=== PATIENT | female | born 1990 | race African-American/Black ===

== ENCOUNTER 2024-11-22 15:57 | Emergency (ER) | payer SELFPAY ==
--- NOTE | ~2024-11-22 | XR_ITS ---
EXAMINATION: XR chest 2V Exam Date/Time: 11/22/2024 16:55 DIE MACHINE OPERATOR HISTORY: CP X 3 DAYS Comparison: None. RESULT: Lines, tubes, and devices: None. Lungs and pleura: Clear. Cardiomediastinal silhouette: Stable. Other: No acute osseous or upper abdominal finding. Chronic appearing right clavicular midshaft frac ture, with mild displacement and angulation. IMPRESSION: No acute cardiopulmonary process. Right clavicular midshaft fracture, likely chronic/subacute in the absence of acute pain/tenderness o r acute trauma, healed or partially healed in mild deformity. Reviewed, dictated and finalized at location K. MACHINE OPERATOR IMPRESSION: No acute cardiopulmonary process. Right clavicular midshaft fracture, likely chronic/subacute in the absence of a cute pain/tenderness or acute trauma, healed or partially healed in mild deform ity.
--- NOTE | 2024-11-22 15:58 | ECG_ITS ---
Test Date: 2024-11-22 16:10:36 Measurements Intervals [place] Rate: 101 P: 54 DE: 172 QRS: -4 QRSD: 89 T: 34 QT: 365 QTc: 473 Interpretive Statements SINUS TACHYCARDIA MODERATE VOLTAGE CRITERIA FOR LVH, CONSIDER NORMAL VARIANT [MEETS CRITERIA IN ONE OF: R(aVL), S(V1), R(V5), R(V5/V6)+S(V1)] ABNORMAL ECG Electronically Signed On 11-23-2024 17:04:20 WELDER REPAIR by Bennie Keith M.D.
[2024-11-22] MEDS: ASPIRIN 81 MG CHEWABLE TABLET 243 MG PO (16:12)
[2024-11-22 16:14] VITALS: BP 173/119; PULSE 105; RESP 16; TEMP 36.6; O2SAT 100
--- NOTE | 2024-11-22 16:17 | ED.CHESTPAIN ---
HPI - Chest Pain General Chief Complaint: Chest Pain <Donna Bautista PA-C - Last Filed: 11/26/24 18:24> Stated Complaint: CP/ SOB <Donna Bautista PA-C - Last Filed: 11/26/24 18:24> Time Seen by Provider: 11/22/24 16:17 <Donna Bautista PA-C - Last Filed: 11/26/24 18:24> Focused HPI: This is a 34 year old female that presents to the ER for chest pain. Reports it feels like pressure. Ongoing intermittently the last couple of days. Worsening today which prompted her to be seen. GENERAL: Well-appearing, well-nourished, and in no acute distress. HEAD: Normocephalic, atraumatic. CHEST: Clear to auscultation. ?No respiratory distress. HEART: Regular rate and rhythm.? NEURO: ?Alert and oriented x3. Patient screened in triage and initial orders placed.? ?Additional care and disposition to be based upon?diagnostic testing and treatment. <Donna Bautista PA-C - Last Filed: 11/26/24 18:24> History of Present Illness HPI narrative: Patient 34-year-old female who presents emergency department with chest pressure. 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 and decided to come over to the emergency department for evaluation patient does report that she had some dysrhythmias in the past due to hypokalemia and reports that she had a elevated troponin but did not get a cardiac catheterization she did have a stress test previously and has seen Cardiology <Rich Armando MD - Last Filed: 11/23/24 00:22> Related Data Allergies/Adverse Reactions: Allergies Allergy/AdvReac Type Severity Reaction Status Date / Time prochlorperazine (From Allergy Intermediate Anaphylaxis Verified 11/22/24 16:06 Compazine) <Donna Bautista PA-C - Last Filed: 11/26/24 18:24> Review of Systems Review of Systems: A 10 system review of systems was completed on the patient and is negative except for what is stated in the HPI. Nursing and ancillary documentation was reviewed. <Rich Armando MD - Last Filed: 11/23/24 00:22> PMFSH Past Medical History Medical History: Medical History (Updated 11/26/24 @ 18:24 by Donna Bautista PA-C) History of hypertension <Donna Bautista PA-C - Last Filed: 11/26/24 18:24> Social History Social History: Social History (Updated 11/26/24 @ 18:24 by Donna Bautista PA-C) Substance use: never <Donna Bautista PA-C - Last Filed: 11/26/24 18:24> Exam Narrative: GENERAL: Well-appearing, well-nourished, and in no acute distress. HEAD: Normocephalic, atraumatic. EYES: PERRLA and EOMI. ENT: Nares clear, no rhinorrhea or epistaxis. Mucous membranes moist. NECK: Supple. CHEST: Clear to auscultation. No respiratory distress. HEART: Regular rate and rhythm. No murmur heard. Normal peripheral pulses. ABDOMEN: Soft, nontender, nondistended, normal active bowel sounds. EXTREMITIES: Normal range of motion. No edema. SKIN: Warm, dry, no rash. NEURO: No focal deficits. Alert and oriented x3. PSYCH: Normal mood and affect. <Rich Armando MD - Last Filed: 11/23/24 00:22> Course Vital Signs Vital signs: Vital Signs Temperature 97.8 F 11/22/24 16:14 Pulse Rate 105 H 11/22/24 16:14 Respiratory Rate 16 11/22/24 16:14 Blood Pressure 173/119 H 11/22/24 16:14 Pulse Oximetry 100 11/22/24 16:14 Temperature 98.8 F 11/23/24 00:00 Pulse Rate 83 11/23/24 00:51 Respiratory Rate 19 11/23/24 00:51 Blood Pressure 129/78 11/23/24 00:51 Pulse Oximetry 99 11/23/24 00:51 Oxygen Delivery Room Air 11/23/24 00:18 <Donna Bautista PA-C - Last Filed: 11/26/24 18:24> Vital Signs Temperature 97.8 F 11/22/24 16:14 Pulse Rate 105 H 11/22/24 16:14 Respiratory Rate 16 11/22/24 16:14 Blood Pressure 173/119 H 11/22/24 16:14 Pulse Oximetry 100 11/22/24 16:14 Temperature 98.8 F 11/23/24 00:00 Pulse Rate 83 11/23/24 00:51 Respiratory Rate 19 11/23/24 00:51 Blood Pressure 129/78 11/23/24 00:51 Pulse Oximetry 99 11/23/24 00:51 Oxygen Delivery Room Air 11/23/24 00:18 <Rich Armando MD - Last Filed: 11/23/24 00:22> MDM - Chest Pain MDM Narrative Medical decision making narrative: Differential diagnosis includes ACS, electrolyte abnormality, dysrhythmia, noncardiac chest pain, musculoskeletal pain EKG showed sinus rhythm without evidence of ST elevation or ST depression Laboratory studies showed normal CBC CMP showed a potassium of 3.5 lipase was normal troponin was negative at 0 hour a 3 hour Chest x-ray shows no acute process the patient does have an old clavicle fracture <Rich Armando MD - Last Filed: 11/23/24 00:22> Lab Data Result diagrams: 11/22/24 16:12 11/22/24 16:12 <Donna Bautista PA-C - Last Filed: 11/26/24 18:24> Labs: Lab Results 11/22/24 11/22/24 Range/Units 16:12 22:00 WBC 10.1 H (4.5-10.0) K/mm3 RBC 4.33 (4.2-5.4) M/mm3 Hgb 13.4 (12.0-15.0) g/dL Hct 40.8 (37.0-47.0) % MCV 94.2 (80-100) fl MCH 30.9 (26-34) pg MCHC 32.8 (32-36) g/dl RDW 12.2 (11.5-14.5) % Plt Count 342 (150-375) k/mm3 MPV 9.3 (7.4-10.4) fl Immature Gran % (Auto) 0.3 (0-0.5) % Neut % (Auto) 58.8 (45.5-73.1) % Lymph % (Auto) 31.4 (18.3-44.2) % [place] % (Auto) 6.1 (2.6-8.5) % Eos % (Auto) 3.1 (0-4.4) % Baso % (Auto) 0.3 (0.2-1.2) % Lymph # (Auto) 3.18 (0.9-3.2) K/mm3 [place] # (Auto) 0.6 (0.1-0.6) K/mm3 Eos # (Auto) 0.3 (0-0.3) K/mm3 Baso # (Auto) 0.0 (0.0-0.1) K/mm3 Abs Immat Gran (auto) 0.03 (0.00-0.031) K/mm3 Absolute Neuts (auto) 6.0 (1.3-6.7) K/mm3 Absolute Nucleated RBC 0.000 (0.0-0.012) K/mm3 Nucleated RBC % 0.0 (0.0-0.2) % PT 12.5 (11.1-14.7) Seconds INR 0.9 APTT 25.5 (22.3-36.8) Seconds Sodium 136 L (137-145) mmol/L Potassium 3.5 (3.4-5.0) mmol/L Chloride 103 (98-107) mmol/L Carbon Dioxide 27 (22-30) mmol/L Anion Gap 6 (4-12) mmol/L BUN 9 (7-17) mg/dL Creatinine 0.60 L (0.7-1.0) mg/dL Estim Creat Clear Calc Not Reportable Estimated GFR > 60 (59 - ) Glucose 156 H (65-110) mg/dL Calcium 9.1 (8.4-10.2) mg/dL Total Bilirubin 0.3 (0.2-1.3) mg/dL AST 50 H (14-36) U/L ALT 33 (6-35) U/L Alkaline Phosphatase 122 (38-126) U/L Troponin I < 0.012 < 0.012 (0.000-0.034) ng/mL Total Protein 8.0 (6.3-8.2) g/dL Albumin 4.5 (3.5-5.1) g/dL Lipase 66 (23-300) U/L <Donna Bautista PA-C - Last Filed: 11/26/24 18:24> Lab Results 11/22/24 11/22/24 Range/Units 16:12 22:00 WBC 10.1 H (4.5-10.0) K/mm3 RBC 4.33 (4.2-5.4) M/mm3 Hgb 13.4 (12.0-15.0) g/dL Hct 40.8 (37.0-47.0) % MCV 94.2 (80-100) fl MCH 30.9 (26-34) pg MCHC 32.8 (32-36) g/dl RDW 12.2 (11.5-14.5) % Plt Count 342 (150-375) k/mm3 MPV 9.3 (7.4-10.4) fl Immature Gran % (Auto) 0.3 (0-0.5) % Neut % (Auto) 58.8 (45.5-73.1) % Lymph % (Auto) 31.4 (18.3-44.2) % [place] % (Auto) 6.1 (2.6-8.5) % Eos % (Auto) 3.1 (0-4.4) % Baso % (Auto) 0.3 (0.2-1.2) % Lymph # (Auto) 3.18 (0.9-3.2) K/mm3 [place] # (Auto) 0.6 (0.1-0.6) K/mm3 Eos # (Auto) 0.3 (0-0.3) K/mm3 Baso # (Auto) 0.0 (0.0-0.1) K/mm3 Abs Immat Gran (auto) 0.03 (0.00-0.031) K/mm3 Absolute Neuts (auto) 6.0 (1.3-6.7) K/mm3 Absolute Nucleated RBC 0.000 (0.0-0.012) K/mm3 Nucleated RBC % 0.0 (0.0-0.2) % PT 12.5 (11.1-14.7) Seconds INR 0.9 APTT 25.5 (22.3-36.8) Seconds Sodium 136 L (137-145) mmol/L Potassium 3.5 (3.4-5.0) mmol/L Chloride 103 (98-107) mmol/L Carbon Dioxide 27 (22-30) mmol/L Anion Gap 6 (4-12) mmol/L BUN 9 (7-17) mg/dL Creatinine 0.60 L (0.7-1.0) mg/dL Estim Creat Clear Calc Not Reportable Estimated GFR > 60 (59 - ) Glucose 156 H (65-110) mg/dL Calcium 9.1 (8.4-10.2) mg/dL Total Bilirubin 0.3 (0.2-1.3) mg/dL AST 50 H (14-36) U/L ALT 33 (6-35) U/L Alkaline Phosphatase 122 (38-126) U/L Troponin I < 0.012 < 0.012 (0.000-0.034) ng/mL Total Protein 8.0 (6.3-8.2) g/dL Albumin 4.5 (3.5-5.1) g/dL Lipase 66 (23-300) U/L <Rich Armando MD - Last Filed: 11/23/24 00:22> Imaging Data Radiologist's impression: ITS Impressions Chest X-Ray 11/22/24 17:05 IMPRESSION: No acute cardiopulmonary process. Right clavicular midshaft fracture, likely chronic/subacute in the absence of acute pain/tenderness or acute trauma, healed or partially healed in mild deformity. <Donna Bautista PA-C - Last Filed: 11/26/24 18:24> Critical Care Time Critical Care Time Critical Care Time: No <Donna Bautista PA-C - Last Filed: 11/26/24 18:24> Discharge Plan Discharge Clinical Impression: Atypical chest pain <Donna Bautista PA-C - Last Filed: 11/26/24 18:24> Patient Disposition: Home, Self-Care <Donna Bautista PA-C - Last Filed: 11/26/24 18:24> Condition: Stable <Donna Bautista PA-C - Last Filed: 11/26/24 18:24> Instructions: Antibiotic Form, Chest Pain (ED) <Donna Bautista PA-C - Last Filed: 11/26/24 18:24> Patient Language: Kazakh <Donna Bautista PA-C - Last Filed: 11/26/24 18:24> Follow-up/Referrals: PHYSICIAN NOT ON STAFF,NONSTAFF [Primary Care Provider] - <Donna Bautista PA-C - Last Filed: 11/26/24 18:24> Stand Alone Forms: Work/School Release IP <Donna Bautista PA-C - Last Filed: 11/26/24 18:24> Time of Disposition: 00:00 <Donna Bautista PA-C - Last Filed: 11/26/24 18:24> 00:00 <Rich Armando MD - Last Filed: 11/23/24 00:22>
[2024-11-22 16:22] LABS: Basophils Percent Auto 0.3 % (0.2-1.2); Eosinophils Absolute Auto 0.3 K/mm3 (0-0.3); Eosinophils Percent Auto 3.1 % (0-4.4); Hematocrit 40.8 % (37.0-47.0); Hemoglobin 13.4 g/dL (12.0-15.0); Immature Granulocyte Absolute 0.03 K/mm3 (0.00-0.031); Immature Granulocyte Percent A 0.3 % (0-0.5); Lymphocytes Absolute Auto 3.18 K/mm3 (0.9-3.2); Lymphocytes Percent Auto 31.4 % (18.3-44.2); Mean Corpuscular HGB Conc 32.8 g/dl (32-36); Mean Corpuscular Hemoglobin 30.9 pg (26-34); Mean Corpuscular Volume 94.2 fl (80-100); Mean Platelet Volume 9.3 fl (7.4-10.4); Monocytes Absolute Auto 0.6 K/mm3 (0.1-0.6); Monocytes Percent Auto 6.1 % (2.6-8.5); Neutrophils Percent Auto 58.8 % (45.5-73.1); Platelet Count Result 342 k/mm3 (150-375); Red Blood Count 4.33 M/mm3 (4.2-5.4); Red Cell Distribution Width 12.2 % (11.5-14.5); White Blood Count 10.1 K/mm3 (4.5-10.0)
[2024-11-22 16:34] LABS: INR 0.9; Prothrombin Time 12.5 Seconds (11.1-14.7)
[2024-11-22 16:35] LABS: Partial Thromboplastin Time 25.5 Seconds (22.3-36.8)
[2024-11-22 16:41] LABS: Alanine Aminotransferase 33 U/L (6-35); Albumin Level 4.5 g/dL (3.5-5.1); Alkaline Phosphatase 122 U/L (38-126); Anion Gap 6 mmol/L (4-12); Aspartate Amino Transferase 50 U/L (14-36); Bilirubin,Total 0.3 mg/dL (0.2-1.3); Blood Urea Nitrogen 9 mg/dL (7-17); Calcium 9.1 mg/dL (8.4-10.2); Carbon Dioxide 27 mmol/L (22-30); Chloride 103 mmol/L (98-107); Estimated Glomerular Filt Rate > 60; Glucose 156 mg/dL (65-110); Lipase 66 U/L (23-300); Potassium 3.5 mmol/L (3.4-5.0); Sodium 136 mmol/L (137-145)
[2024-11-22 16:52] LABS: Troponin I < 0.012 ng/mL (0.000-0.034)
--- NOTE | 2024-11-22 21:48 | ECG_ITS ---
Test Date: 2024-11-22 21:57:02 Measurements Intervals [place] Rate: 75 P: 34 [place]: 168 QRS: -7 QRSD: 84 T: -35 QT: 384 QTc: 430 Interpretive Statements SINUS RHYTHM VOLTAGE CRITERIA FOR LVH [MEETS CRITERIA IN ONE OF: R(aVL), S(V1), R(V5), R(V5/V6)+S(V1)] NONSPECIFIC T-WAVE ABNORMALITY ABNORMAL ECG Electronically Signed On 11-23-2024 17:12:27 SOLAR PV INSTALLER by Bennie Keith M.D.
[2024-11-22 22:39] LABS: Troponin I < 0.012 ng/mL (0.000-0.034)
[2024-11-23] VITALS: BP 141/91; PULSE 84; RESP 16; TEMP 37.1
[2024-11-23 00:09] VITALS: BP 141/91; PULSE 80; RESP 14; O2SAT 100
[2024-11-23 00:11] VITALS: PULSE 78
[2024-11-23] MEDS: POTASSIUM CHLORIDE 20 MEQ PACKET (FOR LIQUID) 40 MEQ PO (00:15)
[2024-11-23 00:18] VITALS: O2SAT 100
[2024-11-23] MEDS: LORazepam INJ (*CRX) 2 MG/ML VIAL 0.5 MG IV PUSH (00:37)
[2024-11-23 00:51] VITALS: BP 129/78; PULSE 83; RESP 19; O2SAT 99
--- OUTSIDE RECORDS SUMMARY | 2024-11-30 00:21 | XMS_ITS | Encounter Summary ---
Author Organization [facility] Care Team Providers Care Proposal Specialist Name Role Phone Richy Villalpando MD Unavailable + [phone] Mee See APRN, MANAGED SERVICES CONSULTANT Unavailable Unavaila ble Arabella Quintana PRIVACY SPECIALIST, MANAGED SERVICES CONSULTANT Primary Care Provider Encounter Details Date Type Department Care Team (Latest Contact Info) Description 08/18/2020 Travel Social History Tobacco Use Types Packs/Day Years Used Date Smoking Tobacco: Never Smokeless Tobacco: Never Alcohol Use Standard Drinks/Week Comments Yes 0 (1 standard drink = 0.6 oz pur e alcohol) occasionally PHQ-2 Answer Date Recorded PHQ-2 Score 1 08/08/2019 Sexually Active Control Partners Comments Yes Male Comments No Sex and Gender Information Value Date Recorded Sex Assigned at Not on file Legal Sex Female 12:11 AM CDT Gender Identity Not on file Sexual Orientation Not on file COVID-19 Exposure Response Date Recorded In the last month, have you been in contact with someone who was confirmed or suspected to have Coronavirus / COVID-19? No / Unsure 08/18/2020 12:52 PM CDT documented as of this encounter Plan of Treatment Not on file documented as of this encounter Visit Diagnoses Not on filedocumented in this encounter Additional Health Concerns Assessment Noted Time PHQ-9 Depression Total Score: 1 08/09/20 18 1:00 PM CDT documented as of this encounter Care Teams Proposal Specialist Relationship Specialty Start Date End Date Arabella Quintana, ONEIL, MANAGED SERVICES CONSULTANT [phone] [place] [phone] PCP - General Advanced Practice Nurse 05/27/20 01/07/21 Richy Villalpando MD Consulting Physician Obstetrics & Gynecology 08/09/18 Mee See APRN, MANAGED SERVICES CONSULTANT Nurse Practitioner Neurology 08/21/18 documented as of this encounter
--- OUTSIDE RECORDS SUMMARY | 2024-11-30 00:21 | XMS_ITS | Encounter Summary ---
Author Organization [facility] Address [address] [place] [address] Phone Care Team Providers Care Furnace Keeper Name Role Phone Richy Villalpando MD Unavailable Mee See APRN, AIR POLLUTION COMPLIANCE INSPECTOR Unavailable Unavaila Arabella Mcdonald SHOP FIRER/FIREMAN, AIR POLLUTION COMPLIANCE INSPECTOR Primary Care Provider Reason for Visit * Reason Comments Headache Encounter Details Date Type Department Care Team (Late st Contact Info) Description 08/18/2020 12:55 PM CDT - 08/18/2020 3:16 PM CDT Emergency [facility] Emergency [address] [place] [id number] Víctor Sarmiento MD [address] [place] [address] Hypokalemia Discharge Disposition: Discharged to home or Selfcare Social History Tobacco Use Types Packs/Day Years [...] PM CDT documented as of this encounter Last Filed Vital Signs Vital Sign Reading Time Taken Comments Blood Pressure 117/77 08/18/2020 3:11 PM CDT Pulse 83 08/18/2020 12:50 PM CDT Temperature 36.9 ??C (98.4 ??F) 08/18/2020 12:50 PM C DT Respiratory Rate 16 08/18/2020 12:50 PM CDT Oxygen Saturation 100% 08/18/2020 12:50 PM CDT Inhaled Oxygen Concentration - - Weight 86.2 kg (190 lb) 08/18/2020 12:50 PM CDT Height 170.2 cm (5' 7 ) 08/18/2020 12:50 PM CDT Body Mass Index 29.76 08/18/2020 12:50 PM CDT documented in this encounter Discharge Instructions * Discharge Instructions* Víctor Sarmiento - 08/18/2020 3:00 PM CDT Images from the original note were not included. Self-Care for Headaches Most headaches aren't serious and can be relieved with self-care. But some headaches may be a sign of another health problem like eye trouble or high blood pressure. To find the best treatment, learnwhat kind of headaches you get. For tension headaches, self-care will usually help. To treat migraines, ask your??healthcare provider??for advice. It is also possible to get both tension and migraineheadaches. Self-care involves relieving the pain and avoiding headache ???triggers?? if you can. Ways to reduce pain and tension Try these steps: ?? Apply a cold compress or ice pack to the pain site. ?? Drink fluids. If nausea makes it hard to drink, try sucking on ice. ?? Rest. Protect yourself from bright light and loud noises. ?? Calm your emotions by imagining a peaceful scene. ?? Massage tight neck, shoulder, and head muscles. ?? To relax muscles, soak in a hot bath or use a hot shower. Use medicines Aspirin or other uebu-txw-[id number] pain medicines, such as ibuprofen and acetaminophen, can relieve headache. Remember: Never give aspirin to anyone 18 years old or younger because of the risk of developing Honey syndrome. Use pain medicines only when needed. Certain prescription medicines, if taken too often, can lead to rebound headaches. Check with your healthcare provider or pharmacist about your medicines. Track your headaches Keeping a headache diary can help you and your??healthcare provider??identify what's causing your headaches: ?? Note when each headache happens. ?? Identify your activities and the foods you've eaten??6 to 8??hours before the headache began. ?? Look for any trends or triggers. Signs of tension headache Any of the following can be signs: ?? Dull pain or feeling of pressure in a tight band around your head ?? Pain in your neck or shoulders ?? Headache without a definite beginning or end ?? Headache after an activity such as driving or working on a computer Signs of migraine Any of the following can be signs: ?? Throbbing pain on one or both sides of your head ?? Nausea or vomiting ?? Extreme sensitivity to light, sound, and smells ?? Bright spots, flashes, or other visual changes ?? Pain or nausea so severe that you can't continue your daily activities Call your??healthcare provider?? If you have any of the following symptoms, contact your healthcare provider: ?? A headache that lingers after a recent injury or bump to the head. ?? A fever with a stiff neck or pain when you bend your head toward your chest. ?? A headache along with slurred speech, changes in your vision, or numbness or weakness in your arms or legs. ?? A headache for longer than??3 days. ?? Frequent headaches,??especially in the morning. ?? Headaches with seizures? Seek immediate medical attention if you have a headache that you would call the worst headache you have ever had. M_[employer]UTION last reviewed this educational content on 01/26/2018 ?? [id number] [employer]. [address] [place] [address], [place] [address]. All rights reserved. This information is not intended as a substitute for professional medical care. Always follow your healthcare professional's instructions. Hypokalemia Hypokalemia means a low level of potassium in the blood. This most often occurs in people who take water pills (diuretics). It can also occur because of severe vomiting or diarrhea.??You may also have it if you??take laxatives for long periods of time. It sometimes happens if you have low magnesium(hypomagnesemia). If you have this,??your??healthcare provider will treat the low??magnesium first. A mild case of hypokalemia usually causes no symptoms. It is only found with blood testing. More severe potassium loss causes overall weakness, muscle or abdominal cramps,??rapid or irregular heartbeats (heart palpitations), low blood pressure,muscle weakness, and in some indviduals can cause temporary paralysis. .?? Home care ?? Take any potassium supplements as prescribed. ?? Eat foods rich in potassium. The highest amount is found in avocado, baked potatoes, spinach, cantaloupe, cod, halibut, salmon, and scallops. White, red, or beal beans are also very good sources.A modest amount of potassium is found in orange juice, bananas, carrots, and tomato juice. ?? If you take certain types of diuretics, you will also need to take potassium supplements. If youtake a diuretic, discuss potassium supplements with your doctor. Follow-up care Follow up with your??healthcare provider??for a repeat blood test within the next week, or as advised by our staff. When to seek medical advice Call your healthcare provider right away if any of the following occur: ?? Increased weakness,??fatigue, or muscle cramps ?? Dizziness Call 911 Call 911 if any of the following occur: ?? Irregular heartbeat, extra beats, or very fast heart rate ?? Loss of consciousness M_[employer] last reviewed this educational content on 05/28/2017 ?? [id number] [employer]. [address] [place] [id number]. All rights reserved. This information is not intended as a substitute for professional medical care. Always follow your healthcare professional's instructions. CONTINUE ALL CURRENT MEDICATION. CONTACT YOUR DOCTOR TO ARRANGE FOLLOW-UP AND MONITORING OF LOW POTASSIUM. MAY USE 3 200 MG IBUPROFEN 3 TIMES DAILY FOR BASELINE HEADACHE AND DENTAL PAIN. MAY ADD 2 TYLENOL 3TIMES DAILY FOR ADDITIONAL PAIN RELIEF. FIND DENTIST FOR DEFINITIVE CARE. CHECK BLOOD SUGAR WHEN FEELING POORLY TO MAKE SURE IT IS NOT LOW BLOOD SUGAR. documented in this encounter Medications at Time of Discharge acetaminophen (TYLENOL) 500 MG Tablet Take 1,000 mg by mouth every 4 hours as needed for Pain. ALPRAZolam (XANAX) 0.25 MG Tablet Take 1 Tab by mouth 3 times daily as needed for Anxiety. 90 Tab 06/16/2019 amLODIPine (NORVASC) 10 MG Tablet Take 1 Tab by mouth daily. 30 Tab 08/01/2020 Aspirin 81 MG Tablet Take 81 mg by mouth daily. gabapentin (NEURONTIN) 400 MG CapsuleIndication s:Idiopathic peripheral neuropathy TAKE 1 CAPSULE BY MOUTH EVERY NIGHT 90 Cap 03/22/2020 hydroCHLOROthiazi de (MICROZIDE) 12.5 MG Capsule Take 1 Cap by mouth daily. 30 Cap 08/01/2020 HYDROcodone-aceta minophen (NORCO) 5-325 MG Tablet Take 1-2 Tabs by mouth every 6 hours as needed for Moderate or more severe pain. 20 Tab 06/14/2019 losartan (COZAAR) 25 MG Tablet Take 1 Tab by mouth daily. 30 Tab 08/01/2020 medroxyPROGESTERo ne (DEPO-PROVERA) 150 MG/ML Suspension 12/06/2018 megestrol (MEGACE) 20 MG TabletIndications :Poor appetite Take 1 Tab by mouth daily 90 Tab 3 06/12/2019 nitroGLYCERIN (NITRODUR) 0.2 MG/HR PATCH 24 HR 6 12/06/2018 ondansetron (ZOFRAN-ODT) 4 MG TABLET DISPERSIBLE Take 1 Tab by mouth every 6 hours as needed for Nausea - 1st line. 5 Tab 01/08/2020 potassium chloride (MICRO-K) 10 MEQ Capsule CR Take 1 Cap by mouth daily. TO REPLACE LOW POTASSIUM. YOUR PHYSICIAN TO MONITOR LEVELS. 30 Cap 08/18/2020 Vit-Fe Fumarate-FA ( VITAMIN PO) Take by mouth. SUMAtriptan (IMITREX) 100 MG Tablet Take 1 Tab by mouth as needed for Migraine. 08/09/2018 traMADol (ULTRAM) 50 MG Tablet Take 1-2 Tabs by mouth every 8 hours as needed for Moderate or more severe pain. 120 Tab 06/16/2019 venlafaxine (EFFEXOR-XR) 37.5 MG CAPSULE SR 24 HRIndications:Anx iety Take 1 Cap by mouth daily. To be in combination with 75 mg venlafaxine. 30 Cap 08/01/2020 venlafaxine (EFFEXOR-XR) 75 MG CAPSULE SR 24 HRIndications:Anx iety Take 1 Cap by mouth daily. Take 1 cap 75 mg daily along with the 37.5mg Venlafaxine 90 Cap 3 08/01/2020 penicillin v potassium 500 MG Tablet Take 1 Tab by mouth 3 times daily for 10 days. 30 Tab 08/18/2020 0 documented as of this encounter ED Notes * Asia Oneill RN - 08/18/2020 3:16 PM CDT Patient discharged. Discharge instructions and patient educational material reviewed with patient; questions and concerns addressed; patient verbalizes understanding, using teach back. Patient was given 2 prescriptions. Patient ambulated with a steady gait upon exiting * Asia Oneill RN - 08/18/2020 3:09 PM CDT Pt medicated per provider orders. Pt educated on intended effects and side effects of medication and verbalized understanding, able to provide teach back of education. * Asia Oneill RN - 08/18/2020 2:50 PM CDT Pt medicated per provider orders. Pt educated on intended effects and side effects of medication and verbalized understanding, able to provide teach back of education. * Asia Oneill RN - 08/18/2020 2:46 PM CDT Pt back to room. No new concerns at this time * Asia Oneill RN - 08/18/2020 2:38 PM CDT Pt in CT * Asia Oneill RN - 08/18/2020 1:43 PM CDT Pt medicated per provider orders. Pt educated on intended effects and side effects of medication and verbalized understanding, able to provide teach back of education. * Víctor Sarmiento - 08/18/2020 1:04 PM CDT Chief Complaint Patient presents with ??? Headache Lorena Deshpande is a 30 y.o. female TO THE EMERGENCY DEPARTMENT FROM HOME WITH COMPLAINT OF RIGHT FRONTAL HEADACHE FOR APPROXIMATELY 4 DAYS. DOES HAVE A HISTORY OF MIGRAINES BUT USUALLY IT IS BETWEEN HER EYES. THIS HEADACHE OCCASIONALLY WILL WAKE HER UP AT NIGHT. SHE ALSO REPORTS BEING SOMEWHAT MENTALLY CLOUDY WITH INCREASED APPETITE THIRST AND URINE OUTPUT OVER THE LAST 4 DAYS. HISTORY OF GESTATIONAL DIABETES. HAS NOT CHECKED HOME BLOOD SUGAR. SEE MEDICATION LIST. NO HEAD TRAUMA. WAS HER BIRTHDAY YESTERDAY AND DID NOT DRINK MUCH. NO ALCOHOL USE TODAY. OCCASIONAL MARIJUANA AND TOBACCO USE. NO FEVER CHILLS NAUSEA VOMITING DIARRHEA. USING TYLENOL AND MOTRIN AT HOME WITH LIMITED RELIEF FOR HEADACHE. DROVE HERSELF. HERE FOR FURTHER EVALUATION MANAGEMENT. ALSO HAS A RIGHT LOWER MOLAR FRACTURED AND SLIGHT SOURCE OF PAIN. COULD BE REFERRED PAIN TO RIGHT FOREHEAD. The history is provided by the patient and medical records. Headache Associated symptoms: no abdominal pain, no congestion, no cough, no diarrhea, no dizziness, no fever, no hearing loss, no myalgias, no nausea, no numbness, no seizures, no sore throat, no vomiting and no weakness Current Facility-Administered Medications Medication Dose Route Frequency Provider Last Rate Last Dose ??? ketorolac (TORADOL) injection 60 mg 60 mg Intramuscular Once Vícotr Sarmiento MD Current Outpatient Medications Medication Sig Dispense Refill ??? acetaminophen (TYLENOL) 500 MG Tablet Take 1,000 mg by mouth every 4 hours as needed for Pain. ??? ALPRAZolam (XANAX) 0.25 MG Tablet Take 1 Tab by mouth 3 times daily as needed for Anxiety. 90 Tab 0 ??? amLODIPine (NORVASC) 10 MG Tablet Take 1 Tab by mouth daily. 30 Tab 0 ??? Aspirin 81 MG Tablet Take 81 mg by mouth daily. ??? gabapentin (NEURONTIN) 400 MG Capsule TAKE 1 CAPSULE BY MOUTH EVERY NIGHT 90 Cap 0 ??? hydroCHLOROthiazide (MICROZIDE) 12.5 MG Capsule Take 1 Cap by mouth daily. 30 Cap 0 ??? HYDROcodone-acetaminophen (NORCO) 5-325 MG Tablet Take 1-2 Tabs by mouth every 6 hours as needed for Moderate or more severe pain. 20 Tab 0 ??? losartan (COZAAR) 25 MG Tablet Take 1 Tab by mouth daily. 30 Tab 0 ??? medroxyPROGESTERone (DEPO-PROVERA) 150 MG/ML Suspension ??? megestrol (MEGACE) 20 MG Tablet Take 1 Tab by mouth daily 90 Tab 3 ??? nitroGLYCERIN (NITRODUR) 0.2 MG/HR PATCH 24 HR 6 ??? ondansetron (ZOFRAN-ODT) 4 MG TABLET DISPERSIBLE Take 1 Tab by mouth every 6 hours as needed for Nausea - 1st line. 5 Tab 0 ??? Vit-Fe Fumarate-FA ( VITAMIN PO) Take by mouth. ??? SUMAtriptan (IMITREX) 100 MG Tablet Take 1 Tab by mouth as needed for Migraine. ??? traMADol (ULTRAM) 50 MG Tablet Take 1-2 Tabs by mouth every 8 hours as needed for Moderate or more severe pain. 120 Tab 0 ??? venlafaxine (EFFEXOR-XR) 37.5 MG CAPSULE SR 24 HR Take 1 Cap by mouth daily. To be in combination with 75 mg venlafaxine. 30 Cap 0 ??? venlafaxine (EFFEXOR-XR) 75 MG CAPSULE SR 24 HR Take 1 Cap by mouth daily. Take 1 cap 75 mg daily along with the 37.5mg Venlafaxine 90 Cap 3 Allergies Allergen Reactions ??? Compazine [Prochlorperazine] Anaphylaxis ??? Compazine [Prochlorperazine Maleate] Anaphylaxis Past Medical History Positives Diagnosis Date ??? Anxiety ??? Hypertension 08/09/2018 ??? Migraine ??? Neuropathy Past Surgical History: Procedure Laterality Date ??? BREAST BIOPSY ??? BREAST BIOPSY Social History Socioeconomic History ??? Marital status: Spouse name: Not on file ??? Number of children: Not on file ??? Years of education: Not on file ??? Highest education level: Not on file Occupational History ??? Not on file Social Needs ??? Financial resource strain: Not on file ??? Food insecurity Worry: Not on file Inability: Not on file ??? Transportation needs Medical: Not on file Non-medical: Not on file Tobacco Use ??? Smoking status: Never Smoker ??? Smokeless tobacco: Never Used Substance and Sexual Activity ??? Alcohol use: Yes Comment: occasionally ??? Drug use: No ??? Sexual activity: Yes Partners: Male Lifestyle ??? Physical activity Days per week: Not on file Minutes per session: Not on file ??? Stress: Not on file Relationships ??? Social connections Talks on phone: Not on file Gets together: Not on file Attends catholic service: Not on file Active member of club or organization: Not on file Attends meetings of clubs or organizations: Not on file Relationship status: Not on file ??? Intimate partner violence Fear of current or ex partner: Not on file Emotionally abused: Not on file Physically abused: Not on file Forced sexual activity: Not on file Other Topics Concern ??? Not on file Social History Narrative ??? Not on file BP 143/87 Pulse 83 Temp 98.4 ??F (36.9 ??C) (Temporal) Resp 16 Ht 5' 7 (1.702 m) Wt 190 lb (86.2 kg) LMP 08/04/2020 SpO2 100% BMI 29.76 kg/m?? Review of Systems Constitutional: Positive for appetite change. Negative for chills and fever. HENT: Negative for congestion, hearing loss, rhinorrhea and sore throat. Eyes: Negative for visual disturbance. Respiratory: Negative for cough and shortness of breath. Cardiovascular: Negative for chest pain. Gastrointestinal: Negative for abdominal pain, diarrhea, nausea and vomiting. Genitourinary: Positive for frequency. Negative for decreased urine volume, difficulty urinating, dysuria, flank pain and urgency. Musculoskeletal: Negative for myalgias. Skin: Negative for rash. Neurological: Negative for dizziness, seizures, syncope, weakness, light- headedness, numbness and headaches. Psychiatric/Behavioral: Positive for decreased concentration. Negative for confusion. All other systems reviewed and are negative. Physical Exam Vitals signs and nursing note reviewed. Constitutional: General: She is not in acute distress. Appearance: She is well-developed. She is not ill-appearing, toxic-appearing or diaphoretic. HENT: Head: Normocephalic and atraumatic. Nose: Nose normal. Mouth/Throat: Comments: MULTIPLE FEELINGS. PATIENT DOES HAVE FEELING RIGHT LOWER 2ND MOLAR WITH FRACTURE BACK SIDE OF TOOTH. THIS IS TOOTH NUMBER 31. Eyes: General: No scleral icterus. Right eye: No discharge. Left eye: No discharge. Conjunctiva/sclera: Conjunctivae normal. Pupils: Pupils are equal, round, and reactive to light. Neck: Musculoskeletal: Normal range of motion and neck supple. Trachea: No tracheal deviation. Cardiovascular: Rate and Rhythm: Normal rate and regular rhythm. Heart sounds: Normal heart sounds. No murmur. No friction rub. No gallop. Pulmonary: Effort: Pulmonary effort is normal. No respiratory distress. Breath sounds: Normal breath sounds. No stridor. No wheezing or rales. Abdominal: General: Bowel sounds are normal. There is no distension. Palpations: Abdomen is soft. Tenderness: There is no abdominal tenderness. There is no guarding or rebound. Musculoskeletal: Normal range of motion. General: No tenderness. Lymphadenopathy: Cervical: No cervical adenopathy. Skin: General: Skin is warm and dry. Capillary Refill: Capillary refill takes less than 2 seconds. Coloration: Skin is not pale. Findings: No erythema or rash. Neurological: Mental Status: She is alert and oriented to person, place, and time. GCS: GCS eye subscore is 4. GCS verbal subscore is 5. GCS motor subscore is 6. Cranial Nerves: No cranial nerve deficit. Psychiatric: Mood and Affect: Mood normal. Speech: Speech normal. Behavior: Behavior normal. Thought Content: Thought content normal. Judgment: Judgment normal. Procedures Imaging Results None MDM Coding DIFFERENTIAL DIAGNOSIS INCLUDES TENSION HEADACHE, SINUS HEADACHE, MIGRAINE HEADACHE, UNLIKELY INTRACRANIAL MASS, UNLIKELY INTRACRANIAL BLEED, DIABETES, HYPERGLYCEMIA, HYPOGLYCEMIA, THYROID ABNORMALITY, , ANEMIA, ELECTROLYTE ABNORMALITY, OCCULT VIRAL SYNDROME, URINARY TRACT INFECTION, UNLIKELY DRUG ABUSE, UNLIKELY ALCOHOL ABUSE, ETCETERA 2:58 PM CDT RESTING COMFORTABLY. NO ACUTE FINDINGS ON HEAD CT. Admission on 08/18/2020 Component Date Value Ref Range Status ??? SODIUM 08/18/2020 135* 136 - 144 mmol/L Final ??? POTASSIUM 08/18/2020 3.1* 3.5 - 5.1 mmol/L Final ??? CHLORIDE 08/18/2020 98* 100 - 110 mmol/L Final ??? CO2, VENOUS 08/18/2020 26 22 - 32 mmol/L Final ??? ANION GAP 08/18/2020 14.1 8.0 - 20.0 mmol/L Final ??? GLUCOSE 08/18/2020 105* 70 - 99 mg/dL Final ??? BUN 08/18/2020 10 6 - 20 mg/dL Final ??? CREATININE, BLOOD 08/18/2020 0.74 0.60 - 1.10 mg/dL Final ??? BUN/CREATININE RATIO 08/18/2020 14 12 - 20 ratio Final ??? TOTAL PROTEIN 08/18/2020 7.2 6.0 - 8.3 g/dL Final ??? ALBUMIN 08/18/2020 4.3 3.5 - 5.2 g/dL Final The colormetric methods used for the determination of Albumin may lead to falsely elevated test results in patients suffering from renal failure or insufficiency due to interference with other proteins. ??? A/G RATIO 08/18/2020 1.5 1.0 - 2.0 Final ??? CALCIUM 08/18/2020 9.1 8.9 - 10.3 mg/dL Final ? ? T BILI 08/18/2020 0.3 <=1.2 mg/dL Final ? ? SGOT (AST) 08/18/2020 15 <=32 U/L Final ? ? SGPT (ALT) 08/18/2020 11 <=33 U/L Final ??? ALKALINE PHOSPHATASE 08/18/2020 75 35 - 105 U/L Final ? ? GFR, EST. NONAFRICAN 08/18/2020 >60 >=60 Final ? ? GFR, EST. 08/18/2020 >60 >=60 Final Creatinine Clearance is the preferred criteria for selecting drug dose adjustments in renally impaired patients. The GFR is provided as additional pertinent clinical information. GFR is reported in mL/min/1.73 sq m. ??? HGB-A1C 08/18/2020 5.7 4.0 - 6.0 % Final ??? Est Average Glucose 08/18/2020 116.9 mg/dL Final ??? PREG-HCG 08/18/2020 Negative Final ??? TSH 08/18/2020 2.120 0.270 - 4.200 mIU/L Final ??? T4 FREE 08/18/2020 1.2 0.9 - 1.7 ng/dL Final ? ? ETHANOL 08/18/2020 <=10 <=10 mg/dL Final ??? WBC 08/18/2020 6.72 4.00 - 12.00 10(3)/mcL Final ??? RBC 08/18/2020 4.09 3.80 - 5.30 10(6)/mcL Final ??? HEMOGLOBIN (HGB) 08/18/2020 12.0 12.0 - 15.8 g/dL Final ??? HEMATOCRIT (HCT) 08/18/2020 38.0 36.0 - 47.0 % Final ??? MCV 08/18/2020 92.9 82.0 - 96.0 fL Final ??? MCH 08/18/2020 29.3 26.0 - 34.0 pg Final ??? MCHC 08/18/2020 31.6 31.0 - 36.0 g/dL Final ??? PLATELET COUNT 08/18/2020 367 140 - 440 10(3)/mcL Final ??? RDW 08/18/2020 12.8 11.8 - 15.5 % Final ??? MPV 08/18/2020 9.1* 9.7 - 12.4 fL Final ??? NEUTROPHILS 08/18/2020 56.9 47.0 - 73.0 % Final ??? LYMPHOCYTES 08/18/2020 34.2 18.0 - 42.0 % Final ??? MONOCYTES 08/18/2020 5.5 4.0 - 12.0 % Final ??? EOSINOPHILS 08/18/2020 3.0 0.0 - 5.0 % Final ??? BASOPHILS 08/18/2020 0.4 0.0 - 1.0 % Final ??? ABSOLUTE NEUTROPHILS 08/18/2020 3.82 1.60 - 7.70 10(3)/mcL Final ??? ABSOLUTE LYMPHOCYTES 08/18/2020 2.30 1.30 - 3.20 10(3)/mcL Final ??? ABSOLUTE MONOCYTES 08/18/2020 0.37 0.20 - 1.00 10(3)/mcL Final ??? ABSOLUTE EOSINOPHIL 08/18/2020 0.20 0.00 - 0.40 10(3)/mcL Final ??? ABSOLUTE BASOPHILS 08/18/2020 0.03 0.00 - 0.10 10(3)/mcL Final ??? NRBC PER 100 WBC 08/18/2020 0 Final The patient remained stable throughout their ED stay. My clinical impression was discussed with thepatient/family. Labs and radiology results were reviewed with them. I gave them the opportunity to ask questions, and addressed them as completely as possible given the information available at present. The therapeutic plan was discussed, advised to take medications as instructed, instructions weregiven and the importance of primary care follow up was stressed and encouraged. The patient/family voiced understanding of the plan, indications to return, and the need for follow up. DX: HEADACHE DENTAL FRACTURE HYPOKALEMIA * Brigette Yates RN - 08/18/2020 12:55 PM CDT Patient ambulatory to triage with c/o headache and fatigue starting 4 days ago. Patient states headache became constant 2 days ago. Denies fevers. Denies nausea and vomiting. Patient alert and oriented x 4. documented in this encounter Plan of Treatment Not on file documented as of this encounter Procedures Procedure Name Priority Date/Time Associated Diagnosis Comments CT HEAD OR BRAIN WO CONTRAST STAT 08/18/2020 2:47 PM CDT HEMOGLOBIN A1C W/ ESTIMATED GLUCOSE STAT 08/18/2020 1:28 PM CDT CBC WITH AUTO DIFFERENTIAL STAT 08/18/2020 1:28 PM CDT THYROXINE (T4) FREE STAT 08/18/2020 1 :28 PM CDT THYROID STIMULATING HORMONE (TSH) STAT 08/18/2020 1:28 PM CDT HUMAN CHORIONIC GONADOTROPIN SCRN SERUM STAT 08/18/2020 1:28 PM CDT ETHYL ALCOHOL (ETHANOL) STAT 08/18/2020 1:28 PM CDT CMP (COMPREHENSIVE METABOLIC PANEL) STAT 08/18/2020 1:28 PM CDT COMPLETE BLOOD COUNT (CBC) WITH DIFF STAT 08/18/2020 1:28 PM CDT documented in this encounter Results * CT HEAD OR BRAIN WO CONTRAST (08/18/2020 2:47 PM CDT) Anatomical Region Laterality Modality Head N/A Computed Tomogra phy 08/18/2020 3:00 PM CDT Impressions 08/18/2020 3:03 PM CDT IMPRESSION: ?? 1. ?? No acute intracranial abnormality by CT criteria. ?? Narrative 08/18/2020 3:03 PM CDT EXAM DESCRIPTION: ?? CT HEAD OR BRAIN WO CONTRAST REASON FOR STUDY: ?? Right frontal headache for 4 days. TECHNIQUE: ??Axial images acquired through the brain without intravenous contrast. ??Images stored on PACS. ?? Automated exposure control was used as a dose optimization technique for this examination. COMPARISON: ?? CT head 10/28/2018 FINDINGS: ??BRAIN: ??No hemorrhage, edema or mass effect. ??Normal white matter. ??The payne-white matter differentiation is preserved. ?? Basal cisterns are patent. EXTRA-AXIAL SPACES: ??No fluid collections. No masses. CALVARIUM: ??No fracture. SINUSES/MASTOIDS: ??No fluid or mucosal thickening. ORBITS: ??No significant abnormality. OTHER: ??The skull base, craniocervical junction, and extracranial soft tissues are unremarkable. THIS IS AN ELECTRONICALLY VERIFIED FINAL REPORT 08/18/2020 3:00 PM - Electronically signed by Enzo Montaño M.D. LB: ANGELICA D: ??08/18/2020 3:00 PM T: ??08/18/2020 3:00 PM Report ID: [id number] Reading Location: ??[id number] Procedure Note Enzo Montaño MD - 08/18/2020 EXAM DESCRIPTION: CT HEAD OR BRAIN WO CONTRAST REASON FOR STUDY: Right frontal headache for 4 days. TECHNIQUE: Axial images acquired through the brain without intravenous contrast. Images stored on PACS. Automated exposure control was used as a dose optimization technique for this examination. COMPARISON: CT head 10/28/2018 FINDINGS: BRAIN: No hemorrhage, edema or mass effect. Normal white matter. The payne-white matter differentiation is preserved. Basal cisterns are patent. EXTRA-AXIAL SPACES: No fluid collections. No masses. CALVARIUM: No fracture. SINUSES/MASTOIDS: No fluid or mucosal thickening. ORBITS: No significant abnormality. OTHER: The skull base, craniocervical junction, and extracranial soft tissues are unremarkable. THIS IS AN ELECTRONICALLY VERIFIED FINAL REPORT 08/18/2020 3:00 PM - Electronically signed by Enzo Montaño M.D. LB: ANGELICA Report ID: [id number] Reading Location: [place] [address] IMPRESSION: 1. No acute intracranial abnormality by CT criteria. us Víctor Sarmiento MD IMG CT ORDERABLES Final Re sult * (ABNORMAL) CBC with Auto Differential (08/18/2020 1:28 PM CDT) WBC 6.72 4.00 - 12.00 10(3)/mcL 08/18/2020 1:40 PM CDT [facility] RBC 4.09 3.80 - 5.30 10(6)/mcL 08/18/2020 1:40 PM CDT [facility] HEMOGLOBIN (HGB) 12.0 12.0 - 15.8 g/dL 08/18/2020 1:40 PM CDT [facility] HEMATOCRIT (HCT) 38.0 36.0 - 47.0 % 08/18/2020 1:40 PM CDT [facility] MCV 92.9 82.0 - 96.0 fL 08/18/2020 1:40 PM CDT [facility] MCH 29.3 26.0 - 34.0 pg 08/18/2020 1:40 PM CDT [facility] MCHC 31.6 31.0 - 36.0 g/dL 08/18/2020 1:40 PM CDT [facility] PLATELET COUNT 367 140 - 440 10(3)/[facility] 08/18/2020 1:40 PM CDT [facility] RDW 12.8 11.8 - 15.5 % 08/18/2020 1:40 PM CDT [facility] MPV 9.1(L) 9.7 - 12.4 fL 08/18/2020 1:40 PM CDT [facility] NEUTROPHILS 56.9 47.0 - 73.0 % 08/18/2020 1:40 PM CDT [facility] LYMPHOCYTES 34.2 18.0 - 42.0 % 08/18/2020 1:40 PM CDT [facility] MONOCYTES 5.5 4.0 - 12.0 % 08/18/2020 1:40 PM CDT [facility] EOSINOPHILS 3.0 0.0 - 5.0 % 08/18/2020 1:40 PM CDT [facility] BASOPHILS 0.4 0.0 - 1.0 % 08/18/2020 1:40 PM CDT [facility] ABSOLUTE NEUTROPHILS 3.82 1.60 - 7.70 10(3)/mcL 08/18/2020 1:40 PM CDT [facility] ABSOLUTE LYMPHOCYTES 2.30 1.30 - 3.20 10(3)/[facility] 08/18/2020 1:40 PM CDT [facility] ABSOLUTE MONOCYTES 0.37 0.20 - 1.00 10(3)/mcL 08/18/2020 1:40 PM CDT [facility] ABSOLUTE EOSINOPHIL 0.20 0.00 - 0.40 10(3)/[facility] 08/18/2020 1:40 PM CDT [facility] ABSOLUTE BASOPHILS 0.03 0.00 - 0.10 10(3)/[facility] 08/18/2020 1:40 PM CDT [facility] NRBC PER 100 WBC 0 08/18/20 20 1:40 PM CDT [facility] Blood Venipuncture / Unknown 08/18/2020 1:28 PM CDT 08/18/2020 1:37 PM CDT Víctor Sarmiento MD HEMATOLOGY ORDERABLES Ruby l Result Performing Organization Address City/[facility] Co de Phone Number [facility] [address] [place] [address] * Ethyl Alcohol(Ethanol) [id number] (08/18/2020 1:28 PM CDT) ETHANOL <=10 <=10 mg/dL 08/18/2020 2:24 PM CDT [facility] Blood Venipuncture / Unknown 08/18/2020 1:28 PM CDT 08/18/2020 1:37 PM CDT Víctor Sarmiento MD CHEMISTRY ORDERABLES Final Result Performing Organization Address [facility] Co de Phone Number [facility] [address] [place] [address] * THYROXINE (T4) FREE (08/18/2020 1:28 PM CDT) T4 FREE 1.2 0.9 - 1.7 ng/dL 08/18/2020 2:24 PM CDT [facility] Blood Venipuncture / Unknown 08/18/2020 1:28 PM CDT 08/18/2020 1:37 PM CDT Víctor Sarmiento MD CHEMISTRY ORDERABLES Final Result Performing Organization Address City/[facility] Co de Phone Number [facility] [address] [place] [address] * Thyroid Stimulating Hormone (TSH) [id number] (08/18/2020 1:28 PM CDT) TSH 2.120 0.270 - 4.200 mIU/L 08/18/2020 2:24 PM CDT [facility] Blood Venipuncture / Unknown 08/18/2020 1:28 PM CDT 08/18/2020 1:37 PM CDT Víctor Sarmiento MD CHEMISTRY ORDERABLES Final Result [facility] [address] [place] [address] * Human Chorionic Gonadotropin Scrn Serum [id number] (08/18/2020 1:28 PM CDT) PREG-HCG Negative 08/18/2020 2:06 PM CDT [facility] Blood Venipuncture / Unknown 08/18/2020 1:28 PM CDT 08/18/2020 1:37 PM CDT Víctor Sarmiento MD CHEMISTRY ORDERABLES Final Result Performing Organization Address City/[facility]/ZIP Co de Phone Number [facility] [address] [place] [address] * Hemoglobin A1C w/ Estimated Glucose (08/18/2020 1:28 PM CDT) HGB-A1C 5.7 4.0 - 6.0 % 08/18/2020 2:13 PM CDT [facility] Est Average Glucose 116.9 mg/dL 08/18/2020 2:13 PM CDT [facility] Blood Venipuncture / Unknown 08/18/2020 1:28 PM CDT 08/18/2020 1:37 PM CDT Narrative [facility] - 08/18/2020 2:13 PM CDT HEMOGLOBIN A1C: DIABETIC PATIENTS: WELL-CONTROLLED: ?? 6.2 - 7.0 INTERMEDIATE WELL-CONTROLLED: ??7.0 - 9.0 POORLY-CONTROLLED: ??>9.0 Víctor Sarmiento MD CHEMISTRY ORDERABLES Final Result [facility] [address] [place] [address] * (ABNORMAL) CMP (Comprehensive Metabolic Panel) (08/18/2020 1:28 PM CDT) SODIUM 135(L) 136 - 144 mmol/L 08/18/2020 2:24 PM CDT [facility] POTASSIUM 3.1(L) 3.5 - 5.1 mmol/L 08/18/2020 2:24 PM CDT [facility] CHLORIDE 98(L) 100 - 110 mmol/L 08/18/2020 2:24 PM CDT [facility] CO2, VENOUS 26 22 - 32 mmol/L 08/18/2020 2:24 PM CDT [facility] ANION GAP 14.1 8.0 - 20.0 mmol/L 08/18/2020 2:24 PM CDT [facility] GLUCOSE 105(H) 70 - 99 mg/dL 08/18/2020 2:24 PM CDT [facility] BUN 10 6 - 20 mg/dL 08/18/2020 2:24 PM CDT [facility] CREATININE, BLOOD 0.74 0.60 - 1.10 mg/dL 08/18/2020 2:24 PM CDT [facility] BUN/CREATININE RATIO 14 12 - 20 ratio 08/18/2020 2:24 PM CDT [facility] TOTAL PROTEIN 7.2 6.0 - 8.3 g/dL 08/18/2020 2:24 PM CDT [facility] ALBUMIN 4.3 3.5 - 5.2 g/dL 08/18/2020 2:24 PM CDT [facility] Comment: The colormetric methods used for the determination of Albumin may lead to falsely elevated test results in patients suffering from renal failure or insufficiency due to interference with other proteins. A/G RATIO 1.5 1.0 - 2.0 08/18/2020 2:24 PM CDT [facility] CALCIUM 9.1 8.9 - 10.3 mg/dL 08/18/2020 2:24 PM CDT [facility] T BILI 0.3 <=1.2 mg/dL 08/18/2020 2:24 PM CDT [facility] SGOT (AST) 15 <=32 U/L 08/18/2020 2:24 PM CDT [facility] SGPT (ALT) 11 <=33 U/L 08/18/2020 2:24 PM CDT [facility] ALKALINE PHOSPHATASE 75 35 - 105 U/L 08/18/2020 2:24 PM CDT [facility] GFR, EST. NONAFRICAN >60 >=60 08/18/2020 2:24 PM CDT [facility] GFR, EST. >60 >=60 020 2:24 PM CDT [facility] Comment: Creatinine Clearance is the preferred criteria for selecting drug dose adjustments in renally impaired patients. ??The GFR is provided as additional pertinent clinical information. GFR is reported in mL/min/1.73 sq m. Blood Venipuncture / Unknown 08/18/2020 1:28 PM CDT 08/18/2020 1:37 PM CDT us Víctor Sarmiento MD CHEMISTRY ORDERABLES Final Result [facility] [address] [place] [address] documented in this encounter Visit Diagnoses Diagnosis Nonintractable episodic headache, unspecified headache type- Primary Hypokalemia Hypopotassemia Closed fracture of tooth, initial encounter documented in this encounter Administered Medications Inactive Administered Medications - up to 3 most recent administrations Medication Order MAR Action Action Date Dose Rate Site acetaminophen (TYLENOL) tablet 650 mg 650 mg, Oral, ONCE, 1 dose, On 08/18/20 at 1500, Maximum dose of acetaminophen is 4000 mg from all sources in 24 hours. Given 08/18/2020 2:50 PM CDT 650 mg ketorolac (TORADOL) injection 60 mg 60 mg, Intramuscular, ONCE, 1 dose, On Tue08/18/20 at 1330 Given 08/18/2020 1:43 PM CDT 60 mg Left Ventrogluteal penicillin v potassium tablet 500 mg 500 mg, Oral, ONCE, 1 dose, On Tue08/18/20 at 1530, Indications: ENT InfectionIndications:ENT Infection Given 08/18/2020 3:09 PM CDT 500 mg potassium chloride SA (KLORCON M) tablet 20 mEq 20 mEq, Oral, ONCE, 1 dose, On Tue08/18/20 at 1500, Do not crush. Given 08/18/2020 2:50 PM CDT 20 mEq documented in this encounter Active and Recently Administered Medications Times are shown in CDT. Scheduled Medication Order 08/16/2020 2020 08/18/2020 acetaminophen (TYLENOL) tablet 650 mg (COMPLETED) 650 mg, Oral, ONCE, 1 dose, On Tue08/18/20 at 1500, Maximum dose of acetaminophen is 4000 mg from all sources in 24 hours. 1450 (Given - Provid er: Asia Oneill RN) ketorolac (TORADOL) injection 60 mg (COMPLETED) 60 mg, Intramuscular, ONCE, 1 dose, On Tue08/18/20 at 1330 1343 (Given - Provid er: Asia Oneill RN) penicillin v potassium tablet 500 mg (COMPLETED) 500 mg, Oral, ONCE, 1 dose, On Tue08/18/20 at 1530, Indications: ENT Infection 1509 (Given - Provid er: Asia Oneill RN) potassium chloride SA (KLORCON M) tablet 20 mEq (COMPLETED) 20 mEq, Oral, ONCE, 1 dose, On Tue08/18/20 at 1500, Do not crush. 1450 (Given - Provid er: Asia Oneill RN) documented in this encounter Additional Health Concerns Assessment Noted Time PHQ-9 Depression Total Score: 1 08/09/20 18 1:00 PM CDT documented as of this encounter Care Teams Furnace Keeper Relationship Specialty Start Date End Date Arabella Quintana, SHOP FIRER/FIREMAN, AIR POLLUTION COMPLIANCE INSPECTOR [address] [place] [address] PCP - General Advanced Practice Nurse 05/27/20 01/07/21 Richy Villalpando MD Consulting Physician Obstetrics & Gynecology 08/09/18 Mee See APRN, AIR POLLUTION COMPLIANCE INSPECTOR Nurse Practitioner Neurology 08/21/18 documented as of this encounter
--- OUTSIDE RECORDS SUMMARY | 2024-11-30 00:21 | XMS_ITS | Encounter Summary ---
Author Organization [employer] Care Team Providers Care Career Resource Specialist Name Role Phone Richy Villalpando MD Unavailable + [phone] Mee See APRN, CORKING MACHINE OPERATOR Unavailable Unavaila ble See Gonsalez MD Primary Care Provider [phone] Encounter Details Date Type Department Care Team (Latest Contact Info) Description 01/07/2020 Travel Social History Tobacco Use Types Packs/Day [...] on file Sexual Orientation Not on file documented as of this encounter Plan of Treatment Not on file documented as of this encounter Visit Diagnoses Not on filedocumented in this encounter Additional Health Concerns Assessment Noted Time PHQ-9 Depression Total Score: 1 08/09/20 18 1:00 PM CDT documented as of this encounter Care Teams Career Resource Specialist Relationship Specialty Start Date End Date See Gonsalez MD [address] [place] [address] PCP - General Internal Medicine 07/06/19 05/26/20 Richy Villalpando MD Consulting Physician Obstetrics & Gynecology 08/09/18 Mee See APRN, CORKING MACHINE OPERATOR Nurse Practitioner Neurology 08/21/18 documented as of this encounter
--- OUTSIDE RECORDS SUMMARY | 2024-11-30 00:21 | XMS_ITS | Encounter Summary ---
Author Organization [facility] Address [address] [place] [address] Phone Care Team Providers Care Motion Picture Set Up Worker Name Role Phone Richy Villalpando MD Unavailable Mee See APRN, WELDING SUPERVISOR Unavailable Unavaila ble Arabella Quintana RESTAURANT MANAGER, WELDING SUPERVISOR Primary Care Provider Reason for Visit * Reason Onset Date Comments Medication Refill 07/14/2020 Encounter Details Date Type Department Care Team (Late st Contact Info) Description 07/14/2020 Refill [facility] [address] [place] [address] Arabella Quintana, ONEIL, WELDING SUPERVISOR [address] [place] [address] Medication Refill Social History Tobacco Use Types Packs/Day Years [...] on file documented as of this encounter Miscellaneous Notes * Telephone Encounter - Khadra Cotton - 07/21/2020 2:15 PM CDT Patient has been notified multi times of the need for apt. Was also advised to switch insurance. * Telephone Encounter - Teddy Keller PAC - 07/17/2020 4:19 PM CDT Patient will need to schedule office visit before we can refill medications. It appears she has been notified multiple times. * Telephone Encounter - Loretta Arroyo RN - 07/17/2020 2:58 PM CDT POP: 06-12-2019 Next OV: none Pt was advised already about her insurance * Telephone Encounter - Natalie Armstrong - 07/14/2020 4:00 PM CDT Name of Medication: venlafaxine (EFFEXOR-XR) 75 MG CAPSULE SR 24 HR amLODIPine (NORVASC) 10 MG Tablet losartan (COZAAR) 25 MG Tablet hydroCHLOROthiazide (MICROZIDE) 12.5 MG Capsule Pharmacy/location for refill to be sent to (if is not a written script)? [id number] AT [facility] 30 or 90 day supply? 90, 90, 90, 30 Informed patient to switch Medicaid plans, she voiced understanding. documented in this encounter Plan of Treatment Not on file documented as of this encounter Visit Diagnoses Diagnosis Anxiety Anxiety state, unspecified documented in this encounter Additional Health Concerns Assessment Noted Time PHQ-9 Depression Total Score: 1 08/09/20 18 1:00 PM CDT documented as of this encounter Care Teams Motion Picture Set Up Worker Relationship Specialty Start Date End Date Arabella Quintana, RESTAURANT MANAGER, WELDING SUPERVISOR [address] [place] [address] PCP - General Advanced Practice Nurse 05/27/20 01/07/21 Richy Villalpando MD Consulting Physician Obstetrics & Gynecology 08/09/18 Mee See APRN, WELDING SUPERVISOR Nurse Practitioner Neurology 08/21/18 documented as of this encounter
--- OUTSIDE RECORDS SUMMARY | 2024-11-30 00:21 | XMS_ITS | Encounter Summary ---
Author Organization [facility] Address [address] [place] [address] Phone Care Team Providers Care Combo Welder Name Role Phone Richy Villalpando MD Unavailable [phone] Mee See APRN, MANAGER LATIN Unavailable Unavaila See Easton MD Primary Care Provider [phone] Reason for Visit * Reason Comments Vomiting Encounter Details Date Type Department Care Team (Late st Contact Info) Description 01/07/2020 9:15 PM [facility] - 01/08/2020 1:13 AM [facility] Emergency [facility] Emergency [address] [place] [address] Emmanuel Pinto MD [address] [place] [address] Nausea with vomiting Discharge Disposition: Discharged to home or Selfcare [...] on file documented as of this encounter Last Filed Vital Signs Vital Sign Reading Time Taken Comments Blood Pressure 120/56 01/08/2020 1:12 AM [facility] Pulse 70 01/08/2020 1:12 AM [facility] Temperature 36.6 ??C (97.8 ??F) 01/08/2020 1:12 AM CS T Respiratory Rate 16 01/08/2020 1:12 AM [facility] Oxygen Saturation 100% 01/08/2020 1:12 AM [facility] Inhaled Oxygen Concentration - - Weight 83.9 kg (185 lb) 01/07/2020 9:08 PM [facility] Height 172.7 cm (5' 8 ) 01/07/2020 9:08 PM [facility] Body Mass Index 28.13 01/07/2020 9:08 PM [facility] documented in this encounter Discharge Instructions * Attachments The following attachments cannot be sent through Care Everywhere. * Vomiting (Adult) (Swedish) * Abdominal Pain, Unknown Cause, (Female) (Swedish) documented in this encounter Medications at Time of Discharge acetaminophen (TYLENOL) 500 MG Tablet Take 1,000 mg by mouth every 4 hours as needed for Pain. ALPRAZolam (XANAX) 0.25 MG Tablet Take 1 Tab by mouth 3 times daily as needed for Anxiety. 90 Tab 06/16/2019 Aspirin 81 MG Tablet Take 81 mg by mouth daily. HYDROcodone-aceta minophen (NORCO) 5-325 MG Tablet Take 1-2 Tabs by mouth every 6 hours as needed for Moderate or more severe pain. 20 Tab 06/14/2019 medroxyPROGESTERo ne (DEPO-PROVERA) 150 MG/ML Suspension 12/06/2018 megestrol (MEGACE) 20 MG TabletIndications :Poor appetite Take 1 Tab by mouth daily 90 Tab 3 06/12/2019 nitroGLYCERIN (NITRODUR) 0.2 MG/HR PATCH 24 HR 6 12/06/2018 ondansetron (ZOFRAN-ODT) 4 MG TABLET DISPERSIBLE Take 1 Tab by mouth every 6 hours as needed for Nausea - 1st line. 5 Tab 01/08/2020 Vit-Fe Fumarate-FA ( VITAMIN PO) Take by mouth. SUMAtriptan (IMITREX) 100 MG Tablet Take 1 Tab by mouth as needed for Migraine. 08/09/2018 traMADol (ULTRAM) 50 MG Tablet Take 1-2 Tabs by mouth every 8 hours as needed for Moderate or more severe pain. 120 Tab 06/16/2019 amLODIPine (NORVASC) 10 MG Tablet Take 1 Tab by mouth daily. 90 Tab 2 09/04/2019 0 gabapentin (NEURONTIN) 400 MG CapsuleIndication s:Idiopathic peripheral neuropathy Take 1 Cap by mouth nightly. 90 Cap 06/12/2019 0 hydroCHLOROthiazi de (MICROZIDE) 12.5 MG Capsule TAKE ONE CAPSULE BY MOUTH DAILY 30 Cap 01/07/2020 0 losartan (COZAAR) 25 MG Tablet Take 1 Tab by mouth daily. 90 Tab 3 02/09/2019 0 venlafaxine (EFFEXOR-XR) 37.5 MG CAPSULE SR 24 HRIndications:Anx iety Take 1 Cap by mouth daily. To be in combination with 75 mg venlafaxine. 90 Cap 06/12/2019 0 venlafaxine (EFFEXOR-XR) 75 MG CAPSULE SR 24 HRIndications:Anx iety Take 1 Cap by mouth daily. 90 Cap 3 06/12/2019 0 documented as of this encounter ED Notes * Ariadne Dawn RN - 01/08/2020 1:13 AM CST Patient discharged. Discharge instructions and patient educational material reviewed with patient; questions and concerns addressed; patient verbalizes understanding, using teach back. Patient was given 1 prescription. Patient discharged per ambulatory mode with no distress noted. SL D/C'ed with Solo cath intact. LAIN * Ariadne Dawn RN - 01/07/2020 11:49 PM CST Pt medicated per provider orders. Pt educated on intended effects and side effects of medication and verbalized understanding, able to provide teach back of education. Patient accusing this RN of looking through her purse. And states Your looking through it like I stole something . Will continue to monitor at this time. Call light in reach. LAIN LAIN LAIN * Ariadne Dawn RN - 01/07/2020 11:36 PM CST Patient presents to ED room 7 via ambulatory mode with no distress noted. Patient states that she has had abdominal pain for one day. Patient complaining of projectile vomiting . Patient informed that we need of a urine sample and asked if she could try to use the restroom at this time. 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 Patient asking for new nursebecause your rude and don't need to take care of me . LAIN * Emmanuel Pinto MD - 01/07/2020 11:14 PM CST Chief Complaint Patient presents with ??? Vomiting Lorena Deshpande is a 29 y.o. female who presents to the emergency department with complaints of intermittent nausea, vomiting and left lower quadrant abdominal pain onset 01/06/20. The patient states that the patient had 2 episodes of emesis yesterday and has approx. 8-9 episodes today. The patient describes her abdominal pain as a dull throbbing pain. She is also complaining of generalized weakness. She denies any prior abdominal surgeries. She denies any food sensitivities or allergies. She does have a prior medical history for hypertension, migraine, neuropathy, anxiety.She does occasionally consume alcohol. She denies any tobacco or drug use. Her vitals were stable in triage. Allergies: -- Compazine (Prochlorperazine) -- Anaphylaxis -- Compazine (Prochlorperazine Maleate) -- Anaphylaxis The history is provided by the patient and medical records. No language and literature division chair was used. No current facility-administered medications for this encounter. Current Outpatient Medications Medication Sig Dispense Refill ??? acetaminophen (TYLENOL) 500 MG Tablet Take 1,000 mg by mouth every 4 hours as needed for Pain. ??? ALPRAZolam (XANAX) 0.25 MG Tablet Take 1 Tab by mouth 3 times daily as needed for Anxiety. 90 Tab 0 ??? amLODIPine (NORVASC) 10 MG Tablet Take 1 Tab by mouth daily. 90 Tab 2 ??? Aspirin 81 MG Tablet Take 81 mg by mouth daily. ??? gabapentin (NEURONTIN) 400 MG Capsule Take 1 Cap by mouth nightly. 90 Cap 0 ??? hydroCHLOROthiazide (MICROZIDE) 12.5 MG Capsule TAKE ONE CAPSULE BY MOUTH DAILY 30 Cap 0 ??? HYDROcodone-acetaminophen (NORCO) 5-325 MG Tablet Take 1-2 Tabs by mouth every 6 hours as needed for Moderate or more severe pain. 20 Tab 0 ??? losartan (COZAAR) 25 MG Tablet Take 1 Tab by mouth daily. 90 Tab 3 ??? medroxyPROGESTERone (DEPO-PROVERA) 150 MG/ML Suspension ??? [...] be in combination with 75 mg venlafaxine. 90 Cap 0 ??? venlafaxine (EFFEXOR-XR) 75 MG CAPSULE SR 24 HR Take 1 Cap by mouth daily. 90 Cap 3 Allergies Allergen Reactions ??? [...] resource strain: Not on file ??? Food insecurity: Worry: Not on file Inability: Not on file ??? Transportation needs: Medical: Not on file Non-medical: Not on file Tobacco Use ??? Smoking status: Never Smoker ??? Smokeless tobacco: Never Used Substance and Sexual Activity ??? Alcohol use: Yes Comment: occasionally ??? Drug use: No ??? Sexual activity: Yes Partners: Male Lifestyle ??? Physical activity: Days per week: Not on file Minutes per session: Not on file ??? Stress: Not on file Relationships ??? Social connections: Talks on phone: Not on file Gets together: Not on file Attends yazidism service: Not on file Active member of club or organization: Not on file Attends meetings of clubs or organizations: Not on file Relationship status: Not on file ??? Intimate partner violence: Fear of current or ex partner: Not on file Emotionally abused: Not on file Physically abused: Not on file Forced sexual activity: Not on file Other Topics Concern ??? Not on file Social History Narrative ??? Not on file BP 115/64 Pulse 61 Temp 98 ??F (36.7 ??C) (Tympanic) Resp 18 Ht 5' 8 (1.727 m) Wt 185 lb(83.9 kg) LMP 06/07/2019 SpO2 100% BMI 28.13 kg/m?? Review of Systems Constitutional: Negative for chills and fever. HENT: Negative for trouble swallowing. Eyes: Negative for visual disturbance. Respiratory: Negative for cough and shortness of breath. Cardiovascular: Negative for chest pain and palpitations. Gastrointestinal: Positive for abdominal pain (LLQ), nausea (intermittent) and vomiting. Genitourinary: Negative for dysuria, frequency and urgency. Neurological: Positive for weakness (generalized). Negative for speech difficulty, numbness and headaches. All other systems reviewed and are negative. Physical Exam Constitutional: She is oriented to person, place, and time. She appears well- developed and well-nourished. Body mass index is 28.13 kg/m??. HENT: Head: Normocephalic and atraumatic. Eyes: Pupils are equal, round, and reactive to light. EOM are normal. Neck: Normal range of motion. Neck supple. Cardiovascular: Normal rate, regular rhythm and normal heart sounds. Exam reveals no gallop and no friction rub. No murmur heard. Pulmonary/Chest: Effort normal and breath sounds normal. She has no wheezes. She has no rales. Abdominal: Soft. There is tenderness in the left lower quadrant. Musculoskeletal: Normal range of motion. Neurological: She is alert and oriented to person, place, and time. Skin: Skin is warm and dry. Nursing note and vitals reviewed. Procedures MDM Labs Reviewed CMP (COMPREHENSIVE METABOLIC PANEL) - Abnormal; Notable for the following components: Result Value POTASSIUM 3.4 (*) GLUCOSE 109 (*) CREATININE, BLOOD 0.56 (*) CALCIUM 8.8 (*) All other components within normal limits URINALYSIS REFLEX IF INDICATED BY ABNORMAL RESULTS - Abnormal; Notable for the following components: PROTEIN, RANDOM URINE 15 mg/dL (*) All other components within normal limits CBC WITH AUTO DIFFERENTIAL - Abnormal; Notable for the following components: MPV 8.9 (*) All other components within normal limits LIPASE - Normal COMPLETE BLOOD COUNT (CBC) WITH DIFF Narrative: The following orders were created for panel order Complete Blood Count (CBC) WITH Diff. Procedure Abnormality Status --------- ------ CBC with Auto Differential[[id number]] Abnormal Final result Please view results for these tests on the individual orders. POCT URINE HCG () URINALYSIS REFLEX IF INDICATED BY ABNORMAL RESULTS Final Result CMP (Comprehensive Metabolic Panel) Final Result Complete Blood Count (CBC) WITH Diff Final Result Lipase Final Result Reviewed: previous chart, nursing note and vitals Interpretation: labs Clinical Impression 1. Abdominal pain, left lower quadrant 2. Nausea with vomiting 2336: At bedside for initial evaluation. Patient presents with abdominal discomfort along with vomiting. Labs were obtained and all came back well within normal range. She was given IV fluids and Zofran. She states her symptoms improved remarkably and she was ready for discharge. No imaging was done. The patient remained stable throughout their ED stay. My clinical impression was discussed with thepatient/caregiver. Any labs and radiology results were reviewed. Questions were addressed as completely as possible given the information available at present. The therapeutic plan was discussed, inst ructions were given and the importance of primary care follow up was stressed and encouraged. The patient/caregiver voiced understanding of the plan, indications to return, and the need for follow up. New Medications: New Prescriptions ONDANSETRON (ZOFRAN-ODT) 4 MG TABLET DISPERSIBLE Take 1 Tab by mouth every 6 hours as needed for Nausea - 1st line. I have advised the patient to follow-up with: See Gonsalez MD [address] [place] [id number] In 2 days For recheck of today's problem, As needed Disposition: Discharge By signing my name below, I, Teddy Reaves , attest that this documentation has been prepared underthe direction and in the presence of Dr. Emmanuel Pinto MD. Electronically Signed: Ever Diggs. 01/08/20 12:57 AM I, Dr. Pinto, personally performed the services described in this documentation. All medical recordentries made by the scribe were at my direction and in my presence. I have reviewed the chart and discharge instructions and agree that the record reflects my personal performance and is accurate andcomplete. Dr. Pinto, 01/08/20 12:57 AM LAIN * Arabella Cheng RN - 01/07/2020 9:11 PM CST Pt to triage with complaints of nausea and vomiting starting yesterday. 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 Pt denies diarrhea, fevers, or urinary symptoms. LAIN documented in this encounter Plan of Treatment Not on file documented as of this encounter Procedures Procedure Name Priority Date/Time Associated Diagnosis Comments URINALYSIS REFLEX IF INDICATED BY ABNORMAL RESULTS STAT 01/08/2020 12:33 AM [facility] POCT URINE HCG () STAT 01/08/2020 12:25 AM [facility] CBC WITH AUTO DIFFERENTIAL STAT 01/07/2020 9:31 PM [facility] LIPASE STAT 01/07/2020 9:31 PM [facility] CMP (COMPREHENSIVE METABOLIC PANEL) STAT 01/07/2020 9:31 PM [facility] COMPLETE BLOOD COUNT (CBC) WITH DIFF STAT 01/07/2020 9:31 PM [facility] documented in this encounter Results * (ABNORMAL) URINALYSIS REFLEX IF INDICATED BY ABNORMAL RESULTS (01/08/2020 12:33 AM [facility]) SPECIFIC GRAVITY 1.015 1.003 - 1.030 01/08/2020 12:39 AM [facility] URINE PH 9.0 5.0 - 9.0 01/08/2020 12:39 AM [facility] WBC ESTERASE Negative Negative 01/08/2020 12:39 AM [facility] NITRITE Negative Negative 01/08/2020 12:39 AM [facility] PROTEIN, RANDOM URINE 15 mg/dL(A) Negative 01/08/2020 12:39 AM [facility] URINE GLUCOSE, QUAL Negative Negative 01/08/2020 12:39 AM [facility] URINE KETONES Negative Negative 01/08/2020 12:39 AM [facility] UROBILINOGEN Normal Normal mg/dL 01/08/2020 12:39 AM [facility] URINE BILIRUBIN Negative Negative 0 12:39 AM [facility] URINE BLOOD Negative Negative tom/ul 01/08/2020 12:39 AM [facility] URINALYSIS COLOR Yellow 01/08/20 20 12:39 AM [facility] URINALYSIS CLARITY Very Cloudy 01/08/2020 12:39 AM [facility] Urine specimen (specimen) URINE SPECIMEN COLLECTION, CLEAN CATCH / Unknown Non-Phlebotomy Collection / Unknown 01/08/2020 12:33 AM [facility] 01/08/2020 12:33 AM [facility] Emmanuel Pinto MD URINE ORDERABLES Final Re sult [facility] [address] [place] [address] * POCT Urine HCG () (01/08/2020 12:25 AM [facility]) POC URINE Negative POC URINE CONTROL [place] Urine specimen (specimen) 01/08/2020 12:25 AM [facility] Emmanuel Pinto MD POINT OF CARE TESTING (MA NUAL) Final Result * (ABNORMAL) CBC with Auto Differential (01/07/2020 9:31 PM [facility]) WBC 7.38 4.00 - 12.00 10(3)/mcL 01/07/2020 9:44 PM [facility] RBC 4.14 3.80 - 5.30 10(6)/mcL 01/07/2020 9:44 PM [facility] HEMOGLOBIN (HGB) 12.1 12.0 - 15.8 g/dL 01/07/2020 9:44 PM [facility] HEMATOCRIT (HCT) 38.4 36.0 - 47.0 % 01/07/2020 9:44 PM [facility] MCV 92.8 82.0 - 96.0 fL 01/07/2020 9:44 PM [facility] MCH 29.2 26.0 - 34.0 pg 01/07/2020 9:44 PM [facility] MCHC 31.5 31.0 - 36.0 g/dL 01/07/2020 9:44 PM [facility] PLATELET COUNT 328 140 - 440 10(3)/mcL 01/07/2020 9:44 PM [facility] RDW 11.9 11.8 - 15.5 % 01/07/2020 9:44 PM [facility] MPV 8.9(L) 9.7 - 12.4 fL 01/07/2020 9:44 PM [facility] NEUTROPHILS 64.1 47.0 - 73.0 % 01/07/2020 9:44 PM [facility] LYMPHOCYTES 29.4 18.0 - 42.0 % 01/07/2020 9:44 PM [facility] MONOCYTES 4.5 4.0 - 12.0 % 01/07/2020 9:44 PM [facility] EOSINOPHILS 1.5 0.0 - 5.0 % 01/07/2020 9:44 PM [facility] BASOPHILS 0.5 0.0 - 1.0 % 01/07/2020 9:44 PM [facility] ABSOLUTE NEUTROPHILS 4.73 1.60 - 7.70 10(3)/[facility] 01/07/2020 9:44 PM [facility] ABSOLUTE LYMPHOCYTES 2.17 1.30 - 3.20 10(3)/[facility] 01/07/2020 9:44 PM [facility] ABSOLUTE MONOCYTES 0.33 0.20 - 1.00 10(3)/[facility] 01/07/2020 9:44 PM [facility] ABSOLUTE EOSINOPHIL 0.11 0.00 - 0.40 10(3)/[facility] 01/07/2020 9:44 PM [facility] ABSOLUTE BASOPHILS 0.04 0.00 - 0.10 10(3)/[facility] 01/07/2020 9:44 PM [facility] NRBC PER 100 WBC 0 01/07/20 20 9:44 PM [facility] Blood specimen (specimen) Butterfly Puncture / Unknown 01/07/2020 9:31 PM [facility] 01/07/2020 9:37 PM [facility] us Emmanuel Pinto MD HEMATOLOGY ORDERABLES Fin al Result [facility] [address] [place] [address] * Lipase (01/07/2020 9:31 PM [facility]) Pathologist [facility] LIPASE 24.0 13 - 60 U/L 01/07/2020 10:05 PM [facility] Blood specimen (specimen) Butterfly Puncture / Unknown 01/07/2020 9:31 PM [facility] 01/07/2020 9:37 PM [facility] Emamnuel Pinto MD CHEMISTRY ORDERABLES Ruby l Result [facility] [address] [place] [address] * (ABNORMAL) CMP (Comprehensive Metabolic Panel) (01/07/2020 9:31 PM [facility]) [facility] SODIUM 140 136 - 144 mmol/L 01/07/2020 10:05 PM [facility] POTASSIUM 3.4(L) 3.5 - 5.1 mmol/L 01/07/2020 10:05 PM [facility] CHLORIDE 103 100 - 110 mmol/L 01/07/2020 10:05 PM [facility] CO2, VENOUS 27 22 - 32 mmol/L 01/07/2020 10:05 PM [facility] ANION GAP 13.4 8.0 - 20.0 mmol/L 01/07/2020 10:05 PM [facility] GLUCOSE 109(H) 70 - 99 mg/dL 01/07/2020 10:05 PM [facility] BUN 8 6 - 20 mg/dL 01/07/2020 10:05 PM [facility] CREATININE, BLOOD 0.56(L) 0.60 - 1.10 mg/dL 01/07/2020 10:05 PM [facility] BUN/CREATININE RATIO 14 12 - 20 ratio 01/07/2020 10:05 PM [facility] TOTAL PROTEIN 7.4 6.0 - 8.3 g/dL 01/07/2020 10:05 PM [facility] ALBUMIN 4.3 3.5 - 5.2 g/dL 01/07/2020 10:05 PM [facility] Comment: The colormetric methods used for the determination of Albumin may lead to falsely elevated test results in patients suffering from renal failure or insufficiency due to interference with other proteins. A/G RATIO 1.4 1.0 - 2.0 01/07/2020 10:05 PM [facility] CALCIUM 8.8(L) 8.9 - 10.3 mg/dL 01/07/2020 10:05 PM [facility] T BILI 0.3 <=1.2 mg/dL 01/07/2020 10:05 PM [facility] SGOT (AST) 20 <=32 U/L 01/07/2020 10:05 PM [facility] SGPT (ALT) 14 <=33 U/L 01/07/2020 10:05 PM [facility] ALKALINE PHOSPHATASE 69 35 - 105 U/L 01/07/2020 10:05 PM [facility] GFR, EST. NONAFRICAN >60 >=60 01/07/2020 10:05 PM [facility] GFR, EST. >60 >=60 020 10:05 PM [facility] Comment: Creatinine Clearance is the preferred criteria for selecting drug dose adjustments in renally impaired patients. ??The GFR is provided as additional pertinent clinical information. GFR is reported in mL/min/1.73 sq m. Blood specimen (specimen) Butterfly Puncture / Unknown 01/07/2020 9:31 PM [facility] 01/07/2020 9:37 PM [facility] us Emmanuel Pinto MD CHEMISTRY ORDERABLES Ruby murphy Result [facility] [address] [place] [address] documented in this encounter Visit Diagnoses Diagnosis Abdominal pain, left lower quadrant- Primary Nausea with vomiting documented in this encounter Administered Medications Inactive Administered Medications - up to 3 most recent administrations Medication Order MAR Action Action Date Dose Rate Site 0.9 % sodium chloride solution at 1,000 mL/hr, Intravenous, ONCE, 1 dose, On 01/08/20 at 0000 New Bag 01/07/2020 11:48 PM [facility] 1,000 mL 1000 mL/hr ondansetron (ZOFRAN) injection 4 mg 4 mg, Intravenous, ONCE, 1 dose, On 01/08/20 at 0000 Given 01/07/2020 11:48 PM [facility] 4 mg documented in this encounter Active and Recently Administered Medications Times are shown in [facility]. Scheduled Medication Order 01/06/2020 01/07/2020 01/08/2020 0.9 % sodium chloride solution (COMPLETED) at 1,000 mL/hr, Intravenous, ONCE, 1 dose, On 01/08/20 at 0000 2348 (New Bag - Provider: Ariadne Dawn RN) 0112 (Stopped - Provider: Ariadne Dawn RN) ondansetron (ZOFRAN) injection 4 mg (COMPLETED) 4 mg, Intravenous, ONCE, 1 dose, On Tue01/08/20 at 0000 2348 (Given - Provider: Ariadne Dawn RN) documented in this encounter Additional Health Concerns Assessment Noted Time PHQ-9 Depression Total Score: 1 08/09/20 18 1:00 PM CDT documented as of this encounter Care Teams Combo Welder Relationship Specialty Start Date End Date See Gnosalez MD [address] [place] [address] PCP - General Internal Medicine 07/06/19 05/26/20 Richy Villalpando MD Consulting Physician Obstetrics & Gynecology 08/09/18 Mee See APRN, MANAGER LATIN Nurse Practitioner Neurology 08/21/18 documented as of this encounter
--- OUTSIDE RECORDS SUMMARY | 2024-11-30 00:21 | XMS_ITS | Encounter Summary ---
Author Organization [employer] Care Team Providers Care Printing Mechanist Name Role Phone Richy Villalpando MD Unavailable [phone] Mee See APRN, CUSTOMER PROGRAM SPECIALIST Unavailable Unavaila ble Provider, None Primary Care Provider Unavailabl e Encounter Details Date Type Department Care Team (Latest Contact Info) Description 12/17/2021 Travel Social History Tobacco Use Types Packs/Day Years Used Date Smoking Tobacco: Never Smokeless Tobacco: Never Alcohol Use Standard Drinks/Week Comments Yes 0 (1 standard drink = 0.6 oz pur e alcohol) occasionally PHQ-2 Answer Date Recorded PHQ-2 Score 1 08/08/2019 Sexually Active Control Partners Comments Yes Male Comments Yes Sex and Gender Information Value Date Recorded Sex Assigned at Not on file Legal Sex Female 12:11 AM CDT Gender Identity Not on file Sexual Orientation Not on file COVID-19 Exposure Response Date Recorded In the last month, have you been in contact with someone who was confirmed or suspected to have Coronavirus / COVID-19? 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
--- OUTSIDE RECORDS SUMMARY | 2024-11-30 00:21 | XMS_ITS | Encounter Summary ---
Author Organization [facility] Address [address] [place] [address] Phone Care Team Providers Care Insulation Cupola Charger Name Role Phone Richy Villalpando MD Unavailable Mee See APRN, VICE PRESIDENT OF COMMUNICATIONS Unavailable Unavaila ble See Gonsalez MD Primary Care Provider [phone] Reason for Visit * Reason Onset Date Comments Medication Refill 04/03/2020 Encounter Details Date Type Department Care Team (Late st Contact Info) Description 04/03/2020 Refill [facility] [address] [place], [place] [id number] See Gonsalez MD [address] [place], [place] [id number] Medication Refill Social History Tobacco Use Types [...] encounter Miscellaneous Notes * Telephone Encounter - See Gonsalez MD - 04/24/2020 7:34 AM CDT Patient will need to schedule a fasting office visit in order to refill the script. * Telephone Encounter - Samia Royal RN - 04/24/2020 7:32 AM CDT We have attempted to reach this patient by both phone and mail with no response. Any further recommendations? * Telephone Encounter - Nina Davidson RN - 04/18/2020 8:09 AM CDT Mailed letter to patient to contact the office. * Telephone Encounter - Ana Cristina Ron RN - 04/16/2020 10:01 AM CDT Left a message for the patient to call back the office. * Telephone Encounter - Ana Cristina Ron RN - 04/15/2020 12:07 PM CDT Voicemail box is full. * Telephone Encounter - Nina Davidson RN - 04/04/2020 3:19 PM CDT Left message for patient to call the office. * Telephone Encounter - See Gonsalez MD - 04/03/2020 11:55 AM CDT Patient canceled her annual fasting exam last fall and has not responded to requests to reschedule. * Telephone Encounter - Arabella Mcguire RN - 04/03/2020 11:54 AM CDT Requested Prescriptions Pending Prescriptions Disp Refills losartan (COZAAR) 25 MG Tablet 90 Tab 0 Sig: Take 1 Tab by mouth daily. Cardiovascular: Angiotensin Receptor Blockers Passed - 04/03/2020 11:40 AM Passed - Valid encounter within last 12 months Past Office Visits Recent Outpatient Visits 9 months ago Anxiety [facility] - Arabella Guillen APN, LEROY 1 year ago Anorexia [facility] - Arabella Guillen APN, LEROY 1 year ago Anxiety [facility] - Arabella Guillen APN, LEROY 1 year ago Anxiety [facility] - Arabella Guillen APN, LEROY 1 year ago Encounter for health maintenance examination (Adult) [facility] - See Easton MD Upcoming Appointments Passed - Last BP in normal range BP Readings from Last 1 Encounters: 01/08/20 120/56 documented in this encounter Plan of Treatment Not on file documented as of this encounter Visit Diagnoses Not on filedocumented in this encounter Additional Health Concerns Assessment Noted Time PHQ-9 Depression Total Score: 1 08/09/20 18 1:00 PM CDT documented as of this encounter Care Teams Insulation Cupola Charger Relationship Specialty Start Date End Date See Gonsalez MD [address] [place] [address] PCP - General Internal Medicine 07/06/19 05/26/20 Richy Villalpando MD Consulting Physician Obstetrics & Gynecology 08/09/18 Mee See APRN, CNP Nurse Practitioner Neurology 08/21/18 documented as of this encounter
--- OUTSIDE RECORDS SUMMARY | 2024-11-30 00:21 | XMS_ITS | Encounter Summary ---
Author Organization [facility] Address [address] [place] [address] Phone Care Team Providers Care Batch And Furnace Operator Name Role Phone Richy Villalpando MD Unavailable Mee See APRN, ASSISTANT TRACK AND FIELD COACH Unavailable Unavaila [facility] See Gonsalez MD Primary Care Provider Reason for Visit * Reason Onset Date Comments Medication Refill 04/14/2020 Encounter Details Date Type Department Care Team (Late st Contact Info) Description 04/14/2020 Refill [facility] [address] [place], [place] [id number] See Gonsalez MD [address] [place] [address] Medication Refill Social History Tobacco [...] encounter Miscellaneous Notes * Telephone Encounter - Arabella Mcguire RN - 04/14/2020 2:18 PM CDT Opened in error-duplicate request. documented in this encounter Plan of Treatment Not on file documented as of this encounter Visit Diagnoses Not on filedocumented in this encounter Additional Health Concerns Assessment Noted Time PHQ-9 Depression Total Score: 1 08/09/20 18 1:00 PM CDT documented as of this encounter Care Teams Batch And Furnace Operator Relationship Specialty Start Date End Date See Gonsalez MD [address] [place] [address] PCP - General Internal Medicine 07/06/19 05/26/20 Richy Villalpando MD Consulting Physician Obstetrics & Gynecology 08/09/18 Mee See APRN, ASSISTANT TRACK AND FIELD COACH Nurse Practitioner Neurology 08/21/18 documented as of this encounter
--- OUTSIDE RECORDS SUMMARY | 2024-11-30 00:21 | XMS_ITS | Encounter Summary ---
Author Organization [facility] Address [address] [place] [address] Phone Care Team Providers Care Zinc Skimmer Name Role Phone Richy Villalpando MD Unavailable [phone] Mee See APRN, LABORATORY TECH Unavailable Unavaila See Easton MD Primary Care Provider [phone] Reason for Visit * Reason Onset Date Comments Follow-up 01/07/2020 Encounter Details Date Type Department Care Team (Late st Contact Info) Description 01/07/[address] [facility] [address] [place] [address] Jesus Alberto, [facility] Follow-up Social History Tobacco Use Types Packs/Day Years [...] encounter Miscellaneous Notes * Telephone Encounter - Macey Valdez - 01/08/2020 10:47 AM CST Patient is still carrying [employer] insurance and has not been seen by doctor since 06/12/19. NCIAL DIRECTOR * Telephone Encounter - Rajwinder Granda - 01/07/2020 9:59 AM CST Care Due: Date Visit Type Department Provider EXTENDED OFFICE Last Visit: 08-21-2018 VISIT [facility] Next Visit: None Scheduled None None Found Last Test Frequency Reason Performed Due Date Office Visit 6 months... ALPRAZolam, amLODIPine, 08-21-2018 02-17-2019 gabapentin, hydroCHLOROthiazide, losartan, megestrol, traMADol, venlafaxine.... Powered by [employer]. Reference number: [id number]. 01/07/2020 9:59:26 AM FINANCIAL DIRECTOR NCIAL DIRECTOR documented in this encounter Plan of Treatment Not on file documented as of this encounter Visit Diagnoses Not on filedocumented in this encounter Additional Health Concerns Assessment Noted Time PHQ-9 Depression Total Score: 1 08/09/20 18 1:00 PM CDT documented as of this encounter Care Teams Zinc Skimmer Relationship Specialty Start Date End Date See Gonsalez MD [address] [place] [address] PCP - General Internal Medicine 07/06/19 05/26/20 Richy Villalpando MD Consulting Physician Obstetrics & Gynecology 08/09/18 Mee See APRN, LABORATORY TECH Nurse Practitioner Neurology 08/21/18 documented as of this encounter
--- OUTSIDE RECORDS SUMMARY | 2024-11-30 00:21 | XMS_ITS | Encounter Summary ---
Author Organization [facility] Address [address] [place] [address] Phone Care Team Providers Care Energy Director Name Role Phone Richy Villalpando MD Unavailable Mee See APRN, PLATING TECHNICIAN Unavailable Unavaila ble See Gonsalez MD Primary Care Provider [phone] Reason for Visit * Reason Onset Date Comments Medication Refill 02/28/2020 Encounter Details Date Type Department Care Team (Late st Contact Info) Description 02/28/2020 Refill [facility] [address] [place], [place] [id number] See Gonsalez MD [address] [place], [place] [id number] Medication Refill Social History Tobacco Use Types [...] Telephone Encounter - See Gonsalez MD - 03/14/2020 8:09 AM CDT Close encounter. * Telephone Encounter - Arabella Mcguire RN - 03/13/2020 10:00 AM CDT We have attempted to reach this patient by both phone and mail with no response. Any further recommendations? * Telephone Encounter - Nina Davidson RN - 03/06/2020 6:52 AM CDT Mailed letter to patient to contact the office. * Telephone Encounter - Nina Davidson RN - 03/04/2020 7:36 AM CDT Left message for patient to call the office. * Telephone Encounter - Nina Davidson RN - 02/29/2020 8:05 AM CDT Left message for patient to call the office. * Telephone Encounter - See Gonsalez MD - 02/29/2020 7:56 AM CDT I would prefer OV since we will need to be checking her blood pressure, amongst other things. * Telephone Encounter - Arabella Mcguire RN - 02/28/2020 2:30 PM CDT I can attempt to call patient for OV. Do you want us to schedule her in the office, via telephone, or video? * Telephone Encounter - See Gonsalez MD - 02/28/2020 9:56 AM CDT Patient has not responded to multiple requests to schedule follow-up regarding her blood pressure. She has been prescribed various medications medications over the past couple of years for blood pressure and her current medical chart is probably inaccurate due to this lack of follow-up. Use of a diuretic without monitoring of kidney function and electrolytes is inappropriate. * Telephone Encounter - Arabella Mcguire RN - 02/28/2020 9:48 AM CDT Requested Prescriptions Pending Prescriptions Disp Refills hydroCHLOROthiazide (MICROZIDE) 12.5 MG Capsule 90 Cap 0 Sig: Take 1 Cap by mouth daily. Cardiovascular: Diuretics Passed - 02/28/2020 9:19 AM Passed - Valid encounter within last 12 months Past Office Visits Recent Outpatient Visits 8 months ago Anxiety [facility] - Arabella Guillen, MANAGER INTERNATIONAL, PLATING TECHNICIAN 1 year ago Anorexia [facility] - Arabella Guillen, MANAGER INTERNATIONAL, PLATING TECHNICIAN 1 year ago Anxiety [facility] - Arabella Guillen, MANAGER INTERNATIONAL, PLATING TECHNICIAN 1 year ago Anxiety [facility] - Arabella Guillen, MANAGER INTERNATIONAL, PLATING TECHNICIAN 1 year ago Encounter for health maintenance examination (Adult) [facility] - See Easton MD Upcoming Appointments Passed [...] documented as of this encounter Care Teams Energy Director Relationship Specialty Start Date End Date See Gonsalez MD [address] [place] [address] PCP - General Internal Medicine 07/06/19 05/26/20 Richy Villalpando MD Consulting Physician Obstetrics & Gynecology 08/09/18 Mee See APRN, PLATING TECHNICIAN Nurse Practitioner Neurology 08/21/18 documented as of this encounter
--- OUTSIDE RECORDS SUMMARY | 2024-11-30 00:21 | XMS_ITS | Encounter Summary ---
Author Organization [facility] Address [address] [facility] [place] [address] Phone Care Team Providers Care Courtroom Deputy Name Role Phone Richy Villalpando MD Unavailable Mee See APRN, J2EE ARCHITECT Unavailable Unavaila [facility] See Gonsalez MD Primary Care Provider [phone] Reason for Visit * Reason Comments Medication Refill Encounter Details Date Type Department Care Team (Late st Contact Info) Description 03/22/2020 Refill [facility] [address] [place] [address] See Gonsalez MD [address] [place] [address] Medication Refill Social History Tobacco [...] Telephone Encounter - Arabella Mcguire RN - 03/22/2020 2:30 PM CDT Medication(s) refilled and signed per [facility] Chronic Medication Refill Standing Order for Pediatric and Adult Patients. documented in this encounter Plan of Treatment Not on file documented as of this encounter Visit Diagnoses Diagnosis Idiopathic peripheral neuropathy Unspecified hereditary and idiopathic peripheral neuropathy documented in this encounter Additional Health Concerns Assessment Noted Time PHQ-9 Depression Total Score: 1 08/09/20 18 1:00 PM CDT documented as of this encounter Care Teams Courtroom Deputy Relationship Specialty Start Date End Date See Gonsalez MD [address] [place] [address] PCP - General Internal Medicine 07/06/19 05/26/20 Richy Villalpando MD Consulting Physician Obstetrics & Gynecology 08/09/18 Mee See APRN, J2EE ARCHITECT Nurse Practitioner Neurology 08/21/18 documented as of this encounter
--- OUTSIDE RECORDS SUMMARY | 2024-11-30 00:21 | XMS_ITS | Clinical Summary ---
Author Organization [facility] Address [address] [place] [address] Phone Care Team Providers Care Qc Scientist Name Role Phone Richy Villalpando MD Unavailable [phone] Mee See APRN, SHEET METAL WORKER MAINTENANCE Unavailable Unavaila ble Provider, None Primary Care Provider Unavailabl e Allergies Active Allergy Reactions Criticality Noted Date Comments Prochlorperazine Maleate Anaphylaxis 04/17/2016 Prochlorperazine Anaphylaxis High 11/29/2015 Medications acetaminophen (TYLENOL) 500 MG Tablet Take 1,000 mg by mouth every 4 hours as needed for Pain. Active Vit-Fe Fumarate-FA ( VITAMIN PO) Take by mouth. Act rob SUMAtriptan (IMITREX) 100 MG Tablet Take 1 Tab by mouth as needed for Migraine. 8 Active Aspirin 81 MG Tablet Take 81 mg by mouth daily. Active nitroGLYCERIN (NITRODUR) 0.2 MG/HR PATCH 24 HR 6 9 Active medroxyPROGESTER one (DEPO-PROVERA) 150 MG/ML Suspension 9 Active megestrol (MEGACE) 20 MG TabletIndication s:Poor appetite Take 1 Tab by mouth daily 90 Tab 3 9 Active ALPRAZolam (XANAX) 0.25 MG Tablet Take 1 Tab by mouth 3 times daily as needed for Anxiety. 90 Tab 9 Active traMADol (ULTRAM) 50 MG Tablet Take 1-2 Tabs by mouth every 8 hours as needed for Moderate or more severe pain. 120 Tab 9 Active HYDROcodone-acet aminophen (NORCO) 5-325 MG Tablet Take 1-2 Tabs by mouth every 6 hours as needed for Moderate or more severe pain. 20 Tab 9 Active ondansetron (ZOFRAN-ODT) 4 MG TABLET DISPERSIBLE Take 1 Tab by mouth every 6 hours as needed for Nausea - 1st line. 5 Tab 0 Active gabapentin (NEURONTIN) 400 MG CapsuleIndicatio ns:Idiopathic peripheral neuropathy TAKE 1 CAPSULE BY MOUTH EVERY NIGHT 90 Cap 0 Active venlafaxine (EFFEXOR-XR) 37.5 MG CAPSULE SR 24 HRIndications:An xiety Take 1 Cap by mouth daily. To be in combination with 75 mg venlafaxine. 30 Cap 0 Active amLODIPine (NORVASC) 10 MG Tablet Take 1 Tab by mouth daily. 30 Tab 0 Active losartan (COZAAR) 25 MG Tablet Take 1 Tab by mouth daily. 30 Tab 0 Active hydroCHLOROthiaz yahir (MICROZIDE) 12.5 MG Capsule Take 1 Cap by mouth daily. 30 Cap 0 Active venlafaxine (EFFEXOR-XR) 75 MG CAPSULE SR 24 HRIndications:An xiety Take 1 Cap by mouth daily. Take 1 cap 75 mg daily along with the 37.5mg Venlafaxine 90 Cap 3 0 Active potassium chloride (MICRO-K) 10 MEQ Capsule CR Take 1 Cap by mouth daily. TO REPLACE LOW POTASSIUM. YOUR PHYSICIAN TO MONITOR LEVELS. 30 Cap 0 Active naproxen (NAPROSYN) 500 MG Tablet Take 1 Tablet by mouth 2 times daily as needed for Moderate or more severe pain. 20 Tablet 2 Active Active Problems Problem Noted Date Diagnosed Date Anxiety 12/11/2018 Acute chest pain 11/09/2018 History of migraine headaches 11/04/2018 Idiopathic peripheral neuropathy 11/04/2018 Unstable angina 11/04/2018 Hypertension 08/09/2018 Migraine Immunizations Immunization Administration Dates Next Due Influenza Vaccine, Quadrivalent, PF 08/09/2018,0 01/16/2017 Influenza, Seasonal, Injectable, Undefined 08/30 TDAP Vaccine 12/30/2016 Family History Medical History Relation Name Comments Diabetes Father Hypertension Father Colon Cancer Maternal Grandmother Diabetes Maternal Grandmother Heart Disease Mother Hypertension Mother Heart Attack Paternal Grandfather Diabetes Paternal Grandmother Relation Name Status Comments Father Maternal Grandmother Mother Paternal Grandfather Paternal Grandmother Social History Tobacco Use Types Packs/Day Years Used Date Smoking Tobacco: Never Smokeless Tobacco: Never Tobacco Cessation:Counseling Given: No Alcohol Use Standard Drinks/Week Comments Yes 0 (1 standard drink = 0.6 oz pur e alcohol) occasionally PHQ-2 Answer Date Recorded PHQ-2 Score 1 08/08/2019 Sexually Active Control Partners Comments Yes Male Comments Unknown Sex and Gender Information Value Date Recorded Sex Assigned at Not on file Legal Sex Female 12:11 AM CDT Gender Identity Not on file Sexual Orientation Not on file Last Filed Vital Signs Vital Sign Reading Time Taken Comments Blood Pressure 136/78 12/17/2021 9:38 PM SUPERVISOR BACKFILLING Pulse 88 12/17/2021 9:38 PM SUPERVISOR BACKFILLING Temperature 36.6 ??C (97.9 ??F) 12/17/2021 8:20 PM CS T Respiratory Rate 16 12/17/2021 9:38 PM SUPERVISOR BACKFILLING Oxygen Saturation 99% 12/17/2021 9:38 PM SUPERVISOR BACKFILLING Inhaled Oxygen Concentration - - Weight 86.2 kg (190 lb) 12/17/2021 8:20 PM SUPERVISOR BACKFILLING Height 170.2 cm (5' 7 ) 12/17/2021 8:20 PM SUPERVISOR BACKFILLING Body Mass Index 29.76 12/17/2021 8:20 PM SUPERVISOR BACKFILLING Plan of Treatment Health Maintenance Due Date Last Done Comments Hepatitis C Virus (HCV) Screening 1988 SARS-COV-2 Immunization (#1) 1993 Hepatitis B Immunization (1 of 3 - 19+ 3-dose series) 2007 Pap Smear 2009 Cervical Cancer Screening (CCS) 2018 HPV/Cotest 2018 Influenza Immunization (#1) 07/29/202407/31, 08/09/2018, 01/16/2017 Td Immunization Every 10 Yea rs (Adults With 1 Tdap) 12/30/2026 12/30/2016 Respiratory Syncytial Virus (RSV) Immunization (Adult) (1 - 1-dose 75+ series) 2063 Meningococcal Immunization (ACWY) Aged Out No longer eligible b ased on patient's age to complete this topic Pneumococcal Immunization Combined Aged Out No longer eligible b ased on patient's age to complete this topic Rotavirus Immunization Aged Out No lo nger eligible based on patient's age to complete this topic Insurance MEDICAID [facility] Advance Directives * Full Code (Latest Code Status on File) Date Activated Date Inactivated Comments 01/14/2017 5:02 AM 01/16/2017 2:06 PM CPR-Full Kilo atment: FULL ARREST: Attempt Resuscitation/CPR wit intubation and mechanical ventilation. PRE-ARREST: Use entire range of life support measures to stabilize the patient. * Full Code Date Activated Date Inactivated Comments 01/07/2017 9:49 PM 01/08/2017 3:02 AM CPR-Full Kilo atment: FULL ARREST: Attempt Resuscitation/CPR wit intubation and mechanical ventilation. PRE-ARREST: Use entire range of life support measures to stabilize the patient. * Full Code Date Activated Date Inactivated Comments 11/16/2016 11:51 AM 11/16/2016 7:49 PM CPR-Full Treatment: FULL ARREST: Attempt Resuscitation/CPR wit intubation and mechanical ventilation. PRE-ARREST: Use entire range of life support measures to stabilize the patient. * Full Code Date Activated Date Inactivated Comments 11/15/2016 11:47 AM 11/15/2016 5:54 PM CPR-Full Treatment: FULL ARREST: Attempt Resuscitation/CPR wit intubation and mechanical ventilation. PRE-ARREST: Use entire range of life support measures to stabilize the patient. * Full Code Date Activated Date Inactivated Comments 09/18/2016 10:01 PM 09/19/2016 3:00 AM CPR-Full Treatment: FULL ARREST: Attempt Resuscitation/CPR wit intubation and mechanical ventilation. PRE-ARREST: Use entire range of life support measures to stabilize the patient. Care Teams Qc Scientist Relationship Specialty Start Date End Date Provider, None [place] PCP - General 12/17/21 Richy Villalpando MD Consulting Physician Obstetrics & Gynecology 08/09/18 Mee See APRN, SHEET METAL WORKER MAINTENANCE Nurse Practitioner Neurology 08/21/18
--- OUTSIDE RECORDS SUMMARY | 2024-11-30 00:21 | XMS_ITS | Encounter Summary ---
Author Organization [facility] Address [address] [place] [address] Phone Care Team Providers Care Child Care Nurse Name Role Phone Richy Villalpando MD Unavailable [phone] Mee See APRN, LEROY Unavailable Unavaila ble Arabella Quintana APRN, LEROY Primary Care Provider Reason for Visit * Reason Onset Date Comments Referral 08/01/2020 Encounter Details Date Type Department Care Team (Late st Contact Info) Description 08/01/2020 Telephone [facility] - [address] [place] [address] Arabella Quintana APRN, LEROY [address] [place] [address] Referral Social History Tobacco Use Types Packs/Day Years [...] Miscellaneous Notes * Telephone Encounter - Arabella Quintana, KAR, LEROY - 08/01/2020 1:40 PM CDT Order signed. * Addendum Note - Arabella Quintana APN, CNP - 08/01/2020 1:40 PM CDTAddended by: ARABELLA QUINTANA on: 08/01/2020 01:40 PM Modules accepted: Orders * Addendum Note - Lina Hernández - 08/01/2020 1:38 PM CDTAddended by: LINA HERNÁNDEZ on: 08/01/2020 01:38 PM Modules accepted: Orders * Telephone Encounter - Lina Hernández - 08/01/2020 1:33 PM CDT Pt calling, states she needs the Venlafaxine 75mg order separate from the 37.5mg Pended order Thank you * Telephone Encounter - Gabriela Rico RN - 08/01/2020 10:09 AM CDT Attempted to call patient with PCP message, no answer at this time. Left message to call back. * Telephone Encounter - Arabella Quintana APN, CNP - 08/01/2020 9:57 AM CDT Medications approved. Please make sure that patient is not or . * Telephone Encounter - Gabriela Rico RN - 08/01/2020 9:35 AM CDT Patient came to office. Is currently switching PCP's due to insurance, but needs a one month refillto get her through to her appointment. Spoke with SINAN Arroyo, she will refill one time only.Patient is aware and verbalized understanding. Requested refills pended. documented in this encounter Plan of Treatment Not on file documented as of this encounter Visit Diagnoses Diagnosis Anxiety Anxiety state, unspecified documented in this encounter Additional Health Concerns Assessment Noted Time PHQ-9 Depression Total Score: 1 08/09/20 18 1:00 PM CDT documented as of this encounter Care Teams Child Care Nurse Relationship Specialty Start Date End Date Arabella Quintana APRN, FLUTE GRINDER [address] [place] [address] PCP - General Advanced Practice Nurse 05/27/20 01/07/21 Richy Villalpando MD Consulting Physician Obstetrics & Gynecology 08/09/18 Mee See APRN, FLUTE GRINDER Nurse Practitioner Neurology 08/21/18 documented as of this encounter
--- OUTSIDE RECORDS SUMMARY | 2024-11-30 00:21 | XMS_ITS | Encounter Summary ---
Author Organization [facility] Address [address] [place] [address] Phone Care Team Providers Care Lockstitch Back Maker Name Role Phone Richy Villalpando MD Unavailable [phone] Mee See APRN, COAT REPAIR INSPECTOR Unavailable [facility] See Gonsalez MD Primary Care Provider [phone] Arabella Quintana APRN, COAT REPAIR INSPECTOR Primary Care Provider Reason for Visit * Reason Comments Medication Refill Encounter Details Date Type Department Care Team (Late st Contact Info) Description 05/14/2020 [facility] [address] [place], [place] [id number] Arabella Quintana, ONEIL, COAT REPAIR INSPECTOR [address] [place] [address] Medication Refill Social History Tobacco [...] Miscellaneous Notes * Telephone Encounter - Arabella Mcguire, RN - 05/19/2020 8:46 AM CDT Letter mailed to patient to contact office. * Telephone Encounter - Nina Davidson RN - 05/16/2020 11:50 AM CDT Called patient. No answer and mailbox is full. * Telephone Encounter - Nina Davidson RN - 05/14/2020 3:24 PM CDT Left message for patient to call the office. * Telephone Encounter - See Gonsalez MD - 05/14/2020 3:06 PM CDT Patient has not responded to written or phone requests to reschedule her missed fasting office visit. * Telephone Encounter - Arabella Mcguire RN - 05/14/2020 2:14 PM CDT Requested Prescriptions Pending Prescriptions Disp Refills losartan (COZAAR) 25 MG Tablet [Pharmacy Med Name: LOSARTAN 25MG TABLETS] 30 Tab 0 Sig: TAKE 1 TABLET BY MOUTH DAILY Cardiovascular: Angiotensin Receptor Blockers Passed - 05/14/2020 2:08 PM Passed - Valid encounter within last 12 months Past Office Visits Recent Outpatient Visits 11 months ago Anxiety [facility] - Arabella Guillen, EXTRUSION PRESS OPERATOR, COAT REPAIR INSPECTOR 1 year ago Anorexia [facility] - Arabella Guillen, EXTRUSION PRESS OPERATOR, COAT REPAIR INSPECTOR 1 year ago Anxiety [facility] - Arabella Guillen, EXTRUSION PRESS OPERATOR, COAT REPAIR INSPECTOR 1 year ago Anxiety [facility] - Arabella Guillen, EXTRUSION PRESS OPERATOR, COAT REPAIR INSPECTOR 1 year ago Encounter for health maintenance examination (Adult) [facility] - See [place] MD Upcoming Appointments Passed [...] documented as of this encounter Care Teams Lockstitch Back Maker Relationship Specialty Start Date End Date See Gonsalez MD [address] [place] [address] PCP - General Internal Medicine 07/06/19 05/26/20 Arabella Quintana APRN, COAT REPAIR INSPECTOR [address] [place] [address] PCP - General Advanced Practice Nurse 05/27/20 01/07/21 Richy Villalpando MD Consulting Physician Obstetrics & Gynecology 08/09/18 Mee See APRN, COAT REPAIR INSPECTOR Nurse Practitioner Neurology 08/21/18 documented as of this encounter
--- OUTSIDE RECORDS SUMMARY | 2024-11-30 00:21 | XMS_ITS | Encounter Summary ---
Author Organization [facility] Address [address] [place] [address] Phone Care Team Providers Care Media Marketing Coordinator Name Role Phone Richy Villalpando MD Unavailable [phone] Mee See APRN, SINGING TEACHER Unavailable Unavaila ble Provider, None Primary Care Provider Unavailabl e Reason for Visit * Reason Comments Abdominal Pain Vaginal Bleeding () Encounter Details Date Type Department Care Team (Late st Contact Info) Description 12/17/2021 8:23 PM PER DIEM CLERK - 12/17/2021 9:39 PM PER DIEM CLERK Emergency [facility] Emergency [address] [place] [id number] Rory Rg, DO [address] [place] [address] DUB (dysfunctional uterine bleeding) Discharge Disposition: Discharged to home or Selfcare [...] COVID-19? No / Unsure 12/17/2021 8:19 PM PER DIEM CLERK documented as of this encounter Last Filed Vital Signs Vital Sign Reading Time Taken Comments Blood Pressure 136/78 12/17/2021 9:38 PM PER DIEM CLERK Pulse 88 12/17/2021 9:38 PM PER DIEM CLERK Temperature 36.6 ??C (97.9 ??F) 12/17/2021 8:20 PM CS T Respiratory Rate 16 12/17/2021 9:38 PM PER DIEM CLERK Oxygen Saturation 99% 12/17/2021 9:38 PM PER DIEM CLERK Inhaled Oxygen Concentration - - Weight 86.2 kg (190 lb) 12/17/2021 8:20 PM PER DIEM CLERK Height 170.2 cm (5' 7 ) 12/17/2021 8:20 PM PER DIEM CLERK Body Mass Index 29.76 12/17/2021 8:20 PM PER DIEM CLERK documented in this encounter Discharge Instructions * Discharge Instructions* oRry Rg DO - 12/17/2021 9:30 PM PER DIEM CLERK Follow up with your doctor within 24hrs Take Medications as prescribed. Return to ER immediately at anytime if symptoms worsen/ persists, chest pain, shortness of breath, lightheadedness, loss of consciousness, numbness/weakness/tingling in your arms or legs. If patient is using abdominal or rib muscles to breathe or breathing faster than normal. Return if fevers greater than 101, continuous vomiting, inability to drink fluids or tolerate solids by mouth, dehydration, lethargy, if patient not acting normally or any other concerns you may have. Please followup with your primary care doctor or the physician he had been given here in the emergency department prior to any travel. DIEM CLERK DIEM CLERK * Attachments The following attachments cannot be sent through Care Everywhere. * Pelvic Pain Female (Irish) * Abnormal Uterine Bleeding [place] (Irish) documented in this encounter Medications at Time [...] by mouth daily 90 Tab 3 06/12/2019 naproxen (NAPROSYN) 500 MG Tablet Take 1 Tablet by mouth 2 times daily as needed for Moderate or more severe pain. 20 Tablet 12/17/2021 nitroGLYCERIN (NITRODUR) 0.2 MG/HR PATCH 24 HR [...] the 37.5mg Venlafaxine 90 Cap 3 08/01/2020 cyclobenzaprine (FLEXERIL) 10 MG Tablet Take 1 Tablet by mouth 3 times daily as needed for Muscle spasms for up to 14 days. 30 Tablet 12/17/2021 2 documented as of this encounter ED Notes * Maite Garvey RN - 12/17/2021 9:38 PM CST PIV removed, catheter intact. DC instructions and RXs reviewed with pt, all questions and concerns addressed. Pt is A&Ox4, ambulatory to exit. DIEM CLERK * Rory Rg, - 12/17/2021 8:37 PM CST Chief Complaint Patient presents with ??? Abdominal Pain ??? Vaginal Bleeding () 31-year-old female complains low mid abdominal discomfort and spotting, last menstrual cycle was around the 06 of November. She a G8 [id number] prior to this visit, her OB is Dr. Villalpando. Pain is constant, mild, feels like previous miscarriages, took a home test and it was positive. No current facility-administered medications for this encounter. [...] - 1st line. 5 Tab 0 ??? potassium chloride (MICRO-K) 10 MEQ Capsule CR Take 1 Cap by mouth daily. TO REPLACE LOW POTASSIUM. YOUR PHYSICIAN TO MONITOR LEVELS. 30 Cap 0 ??? Vit-Fe Fumarate-FA ( VITAMIN PO) [...] file Occupational History ??? Not on file Tobacco Use ??? Smoking status: Never Smoker ??? Smokeless tobacco: Never Used Substance and Sexual Activity ??? Alcohol use: Yes Comment: occasionally ??? Drug use: No ??? Sexual activity: Yes Partners: Male Other Topics Concern ??? Not on file Social History Narrative ??? Not on file Social Determinants of Health Social determinant risk not applicable to this patient. BP 149/83 Pulse 98 Temp 97.9 ??F (36.6 ??C) (Tympanic) Resp 18 Ht 5' 7 (1.702 m) Wt 190 lb (86.2 kg) LMP 08/04/2020 (LMP Unknown) SpO2 99% BMI 29.76 kg/m?? Review of Systems Constitutional: Negative for activity change, appetite change, chills, diaphoresis, fatigue and fever. HENT: Negative for dental problem, rhinorrhea and sore throat. Eyes: Negative for visual disturbance. Respiratory: Negative for cough, chest tightness, shortness of breath and wheezing. Cardiovascular: Negative for chest pain, palpitations and leg swelling. Gastrointestinal: Positive for abdominal pain. Negative for constipation, diarrhea, nausea and vomiting. Genitourinary: Positive for vaginal bleeding. Negative for difficulty urinating, flank pain, hematuria and urgency. Musculoskeletal: Negative for arthralgias, back pain, myalgias, neck pain and neck stiffness. Skin: Negative for color change and rash. Allergic/Immunologic: Negative for food allergies. Neurological: Negative for dizziness, syncope, weakness, light-headedness, numbness and headaches. Psychiatric/Behavioral: Negative for self-injury, sleep disturbance and suicidal ideas. All other systems reviewed and are negative. Physical Exam Vitals and nursing note reviewed. Constitutional: General: She is not in acute distress. Appearance: She is well-developed. She is not diaphoretic. Comments: Age-appropriate, female, very pleasant, over nourished, family at the bedside, no acute distress. HENT: Head: Normocephalic and atraumatic. Right Ear: External ear normal. Left Ear: External ear normal. Nose: Nose normal. Mouth/Throat: Pharynx: No oropharyngeal exudate. Eyes: General: Right eye: No discharge. Left eye: No discharge. Conjunctiva/sclera: Conjunctivae normal. Pupils: Pupils are equal, round, and reactive to light. Neck: Thyroid: No thyromegaly. Vascular: No JVD. Trachea: No tracheal deviation. Cardiovascular: Rate and Rhythm: Normal rate and regular rhythm. Heart sounds: Normal heart sounds. No murmur heard. Pulmonary: Effort: Pulmonary effort is normal. No respiratory distress. Breath sounds: Normal breath sounds. No wheezing or rales. Chest: Chest wall: No tenderness. Abdominal: General: Bowel sounds are normal. There is no distension. Palpations: Abdomen is soft. There is no mass. Tenderness: There is no abdominal tenderness. There is no guarding or rebound. Musculoskeletal: General: No tenderness. Normal range of motion. Cervical back: Normal range of motion and neck supple. Lymphadenopathy: Cervical: No cervical adenopathy. Skin: General: Skin is warm and dry. Capillary Refill: Capillary refill takes less than 2 seconds. Coloration: Skin is not pale. Findings: No erythema or rash. Neurological: Mental Status: She is alert and oriented to person, place, and time. Cranial Nerves: No cranial nerve deficit. Motor: No abnormal muscle tone. Coordination: Coordination normal. Deep Tendon Reflexes: Reflexes are normal and symmetric. Psychiatric: Behavior: Behavior normal. Thought Content: Thought content normal. Emergency Department Progress. (Note: only significant re-evaluation times are documented, patientsin the emergency department typically have many more re- evaluations than reasonably document) 9:31 PM PER DIEM CLERK Re-eval: Patient feeling better, no new issues, wants to go home, she is comfortable with dischargeand follow up with primary care doctor. All questions have been answered to the patient and any friends/family present currently present. In reviewing the patient's chart, their primary care doctor is NONE PROVIDER. CMP (Comprehensive Metabolic Panel) Final Result Complete Blood Count (CBC) WITH Diff Final Result HCG Beta Subunit Serum Quant Final Result Urinalysis Reflex if Indicated by Abnormal Results (Results Pending) Labs Reviewed CMP (COMPREHENSIVE METABOLIC PANEL) - Abnormal; Notable for the following components: Result Value POTASSIUM 3.1 (*) GLUCOSE 153 (*) All other components within normal limits CBC WITH AUTO DIFFERENTIAL - Abnormal; Notable for the following components: HEMOGLOBIN (HGB) 11.4 (*) MPV 9.1 (*) ABSOLUTE EOSINOPHIL 0.43 (*) All other components within normal limits HCG BETA SUBUNIT SERUM QUANT - Normal Narrative: HCG Interpretive Reference Ranges Wks of : References Ranges 4 wks [id number] 5 wks [phone] 6 wks [phone] 7 wks [id number] 8 wks [id number] 9 wks [id number] 10 wks [id number] 14 wks [id number] 15 wks [id number] 16 wks [id number] 17 wks [id number] 18 wks [phone] 19 wks [phone] Non- Female: 0-4 COMPLETE BLOOD COUNT (CBC) WITH DIFF Narrative: The following orders were created for panel order Complete Blood Count (CBC) WITH Diff. Procedure Abnormality Status --------- ------ CBC with Auto Differential[[id number]] Abnormal Final result Please view results for these tests on the individual orders. URINALYSIS REFLEX IF INDICATED BY ABNORMAL RESULTS TYPE & SCREEN (CROSSMATCH CONVERTIBLE) I have reviewed the available labs, imaging, and nursing notes. Procedures Imaging Results US PELVIS COMPLETE WITH TRANSVAGINAL (Canceled) Labs Reviewed CMP (COMPREHENSIVE METABOLIC PANEL) - Abnormal; Notable for the following components: Result Value POTASSIUM 3.1 (*) GLUCOSE 153 (*) All other components within normal limits CBC WITH AUTO DIFFERENTIAL - Abnormal; Notable for the following components: HEMOGLOBIN (HGB) 11.4 (*) MPV 9.1 (*) ABSOLUTE EOSINOPHIL 0.43 (*) All other components within normal limits HCG BETA SUBUNIT SERUM QUANT - Normal Narrative: HCG Interpretive Reference Ranges Wks of : References Ranges 4 wks [id number] 5 wks [phone] 6 wks [phone] 7 wks [id number] 8 wks [id number] 9 wks [id number] 10 wks [id number] 14 wks [id number] 15 wks [id number] 16 wks [id number] 17 wks [id number] 18 wks [id number] 19 wks [id number] Non- Female: 0-4 COMPLETE BLOOD COUNT (CBC) WITH DIFF Narrative: The following orders were created for panel order Complete Blood Count (CBC) WITH Diff. Procedure Abnormality Status --------- ------ CBC with Auto Differential[[id number]] Abnormal Final result Please view results for these tests on the individual orders. URINALYSIS REFLEX IF INDICATED BY ABNORMAL RESULTS TYPE & SCREEN (CROSSMATCH CONVERTIBLE) MDM Number of Diagnoses or Management Options Amount and/or Complexity of Data Reviewed Clinical lab tests: ordered and reviewed Tests in the radiology section of CPT??: ordered and reviewed Review and summarize past medical records: yes Reviewed: previous chart, nursing note and vitals Interpretation: labs and ultrasound Beta quant is negative, hemoglobin stable, bleeding precautions given, recommend OB as an outpatient. Clinical Impression 1. DUB (dysfunctional uterine bleeding) 2. Abdominal pain, suprapubic Disposition: Discharge home Condition:Stable CLINICAL IMPRESSION: 1. DUB (dysfunctional uterine bleeding) 2. Abdominal pain, suprapubic Current Outpatient Medications Medication Instructions ??? acetaminophen (TYLENOL) 1,000 mg, Oral, EVERY 4 HOURS PRN ??? ALPRAZolam (XANAX) 0.25 mg, Oral, 3 TIMES DAILY PRN ??? amLODIPine (NORVASC) 10 mg, Oral, DAILY ??? Aspirin 81 mg, Oral, DAILY ??? gabapentin (NEURONTIN) 400 MG Capsule TAKE 1 CAPSULE BY MOUTH EVERY NIGHT ??? hydroCHLOROthiazide (MICROZIDE) 12.5 mg, Oral, DAILY ??? HYDROcodone-acetaminophen (NORCO) 5-325 MG Tablet 1-2 Tablets, Oral, EVERY 6 HOURS PRN ??? losartan (COZAAR) 25 mg, Oral, DAILY ??? medroxyPROGESTERone (DEPO-PROVERA) 150 MG/ML Suspension No dose, route, or frequency recorded. ??? megestrol (MEGACE) 20 mg, Oral, DAILY ??? nitroGLYCERIN (NITRODUR) 0.2 MG/HR PATCH 24 HR No dose, route, or frequency recorded. ??? ondansetron (ZOFRAN-ODT) 4 mg, Oral, EVERY 6 HOURS PRN ??? potassium chloride (MICRO-K) 10 MEQ Capsule CR 10 mEq, Oral, DAILY, TO REPLACE LOW POTASSIUM. YOUR PHYSICIAN TO MONITOR LEVELS. ??? Vit-Fe Fumarate-FA ( VITAMIN PO) Oral ??? SUMAtriptan (IMITREX) 100 MG Tablet 1 Tablet, Oral, PRN ??? traMADol (ULTRAM) 50-100 mg, Oral, EVERY 8 HOURS PRN ??? venlafaxine (EFFEXOR-XR) 37.5 mg, Oral, DAILY, To be in combination with 75 mg venlafaxine. ??? venlafaxine (EFFEXOR-XR) 75 mg, Oral, DAILY, Take 1 cap 75 mg daily along with the 37.5mg Venlafaxine No current facility-administered medications on file prior to encounter. Current Outpatient Medications on File Prior to Encounter Medication Sig Dispense Refill ??? acetaminophen (TYLENOL) [...] - 1st line. 5 Tab 0 ??? potassium chloride (MICRO-K) 10 MEQ Capsule CR Take 1 Cap by mouth daily. TO REPLACE LOW POTASSIUM. YOUR PHYSICIAN TO MONITOR LEVELS. 30 Cap 0 ??? Vit-Fe Fumarate-FA ( VITAMIN PO) [...] with the 37.5mg Venlafaxine 90 Cap 3 Rory Rg D.O. Emergency/Tactical Medicine DIEM CLERK * Sri Resendez RN - 12/17/2021 8:22 PM CST Pt ambulatory to triage with c/o lower abdominal cramping and vaginal bleeding that increased today. Pt states she had a positive test a couple of days ago . DIEM CLERK documented in this encounter Plan of Treatment Not on file documented as of this encounter Procedures Procedure Name Priority Date/Time Associated Diagnosis Comments CBC WITH AUTO DIFFERENTIAL STAT 12/17/2021 8:45 PM PER DIEM CLERK TYPE & SCREEN (CROSSMATCH CONVERTIBLE) STAT 12/17/2021 8:45 PM PER DIEM CLERK HCG BETA SUBUNIT SERUM QUANT STAT 12/17/2021 8:45 PM PER DIEM CLERK CMP (COMPREHENSIVE METABOLIC PANEL) STAT 12/17/2021 8:45 PM PER DIEM CLERK COMPLETE BLOOD COUNT (CBC) WITH DIFF STAT 12/17/2021 8:45 PM PER DIEM CLERK documented in this encounter Results * (ABNORMAL) CBC with Auto Differential (12/17/2021 8:45 PM PER DIEM CLERK) [facility] Signature WBC 9.12 4.00 - 12.00 10(3)/mcL 12/17/2021 9:00 PM [facility] RBC 3.94 3.80 - 5.30 10(6)/mcL 12/17/2021 9:00 PM [facility] HEMOGLOBIN (HGB) 11.4(L) 12.0 - 15.8 g/dL 12/17/2021 9:00 PM [facility] HEMATOCRIT (HCT) 36.2 36.0 - 47.0 % 12/17/2021 9:00 PM [facility] MCV 91.9 82.0 - 96.0 fL 12/17/2021 9:00 PM [facility] MCH 28.9 26.0 - 34.0 pg 12/17/2021 9:00 PM [facility] MCHC 31.5 31.0 - 36.0 g/dL 12/17/2021 9:00 PM [facility] PLATELET COUNT 336 140 - 440 10(3)/mcL 12/17/2021 9:00 PM [facility] RDW 14.4 11.8 - 15.5 % 12/17/2021 9:00 PM [facility] MPV 9.1(L) 9.7 - 12.4 fL 12/17/2021 9:00 PM [facility] NEUTROPHILS 61.0 47.0 - 73.0 % 12/17/2021 9:00 PM [facility] LYMPHOCYTES 26.5 18.0 - 42.0 % 12/17/2021 9:00 PM [facility] MONOCYTES 7.5 4.0 - 12.0 % 12/17/2021 9:00 PM [facility] EOSINOPHILS 4.7 0.0 - 5.0 % 12/17/2021 9:00 PM [facility] BASOPHILS 0.3 0.0 - 1.0 % 12/17/2021 9:00 PM [facility] ABSOLUTE NEUTROPHILS 5.56 1.60 - 7.70 10(3)/mcL 12/17/2021 9:00 PM PER DIEM CLERK [facility] ABSOLUTE LYMPHOCYTES 2.42 1.30 - 3.20 10(3)/mcL 12/17/2021 9:00 PM PER DIEM CLERK [facility] ABSOLUTE MONOCYTES 0.68 0.20 - 1.00 10(3)/mcL 12/17/2021 9:00 PM PER DIEM CLERK [facility] ABSOLUTE EOSINOPHIL 0.43(H) 0.00 - 0.40 10(3)/mcL 12/17/2021 9:00 PM PER DIEM CLERK [facility] ABSOLUTE BASOPHILS 0.03 0.00 - 0.10 10(3)/mcL 12/17/2021 9:00 PM PER DIEM CLERK [facility] NRBC PER 100 WBC 0 12/17/19 9:00 PM PER DIEM CLERK [facility] Blood Venipuncture / Unknown 12/17/2021 8:45 PM PER DIEM CLERK 12/17/2021 8:52 PM PER DIEM CLERK us Rory Rg DO HEMATOLOGY ORDERABLES F inal Result [facility] [place] [address] * TYPE & SCREEN (CROSSMATCH CONVERTIBLE) (12/17/2021 8:45 PM PER DIEM CLERK) ABO TYPING B 12/17/2021 9:54 PM PER DIEM CLERK [facility] RH Positive 12/17/2021 9:54 PM PER DIEM CLERK [facility] ABSC Negative 12/17/2021 9:54 PM PER DIEM CLERK [facility] Blood Venipuncture / Unknown 12/17/2021 8:45 PM PER DIEM CLERK 12/17/2021 8:52 PM PER DIEM CLERK us Rory Rg DO BLOOD BANK ORDERABLES E dited Result - Final [facility]OD [facility] #[address] [place] [address] * HCG Beta Subunit Serum Quant (12/17/2021 8:45 PM PER DIEM CLERK) Pathologist [facility] HCG BETA SUBUNIT, QUANT <=0.50 <=5.00 mIU/mL 12/17/2021 9:14 PM PER DIEM CLERK [facility] Blood Venipuncture / Unknown 12/17/2021 8:45 PM PER DIEM CLERK 12/17/2021 8:52 PM PER DIEM CLERK Narrative [facility] - 12/17/2021 9:14 PM PER DIEM CLERK HCG Interpretive Reference Ranges Wks of : References Ranges 4 wks [id number] 5 wks [phone] 6 wks [phone] 7 wks [id number] 8 wks [id number] 9 wks [id number] 10 wks [id number] 14 wks [id number] 15 wks [id number] 16 wks [id number] 17 wks [id number] 18 wks [id number] 19 wks [phone] Non- Female: 0-4 us Rory Rg DO CHEMISTRY ORDERABLES Fi nal Result [facility] [address] [place] [address] * (ABNORMAL) CMP (Comprehensive Metabolic Panel) (12/17/2021 8:45 PM PER DIEM CLERK) Pathologist [facility] SODIUM 137 136 - 144 mmol/L 12/17/2021 9:15 PM PER DIEM CLERK [facility] POTASSIUM 3.1(L) 3.5 - 5.1 mmol/L 12/17/2021 9:15 PM PER DIEM CLERK [facility] CHLORIDE 100 100 - 110 mmol/L 12/17/2021 9:15 PM PER DIEM CLERK [facility] CO2, VENOUS 23 22 - 32 mmol/L 12/17/2021 9:15 PM PER DIEM CLERK [facility] ANION GAP 17.1 8.0 - 20.0 mmol/L 12/17/2021 9:15 PM PER DIEM CLERK [facility] GLUCOSE 153(H) 70 - 99 mg/dL 12/17/2021 9:15 PM [facility] BUN 11 6 - 20 mg/dL 12/17/2021 9:15 PM [facility] CREATININE, BLOOD 0.67 0.60 - 1.10 mg/dL 12/17/2021 9:15 PM [facility] BUN/CREATININE RATIO 16 12 - 20 ratio 12/17/2021 9:15 PM [facility] TOTAL PROTEIN 7.1 6.0 - 8.3 g/dL 12/17/2021 9:15 PM [facility] ALBUMIN 4.5 3.5 - 5.2 g/dL 12/17/2021 9:15 PM [facility] Comment: The colormetric methods used for the determination of Albumin may lead to falsely elevated test results in patients suffering from renal failure or insufficiency due to interference with other proteins. A/G RATIO 1.7 1.0 - 2.0 12/17/2021 9:15 PM [facility] CALCIUM 9.3 8.9 - 10.3 mg/dL 12/17/2021 9:15 PM [facility] T BILI <0.3 <=1.2 mg/dL 12/17/2021 9:15 PM [facility] SGOT (AST) 22 <=32 U/L 12/17/2021 9:15 PM [facility] SGPT (ALT) 21 <=41 U/L 12/17/2021 9:15 PM [facility] ALKALINE PHOSPHATASE 97 35 - 105 U/L 12/17/2021 9:15 PM [facility] GFR, EST. NONAFRICAN >60 >=60 12/17/2021 9:15 PM [facility] GFR, EST. >60 >=60 022 9:15 PM [facility] Comment: Creatinine Clearance is the preferred criteria for selecting drug dose adjustments in renally impaired patients. ??The GFR is provided as additional pertinent clinical information. GFR is reported in mL/min/1.73 sq m. Blood Venipuncture / Unknown 12/17/2021 8:45 PM PER DIEM CLERK 12/17/2021 8:52 PM PER DIEM CLERK us Rory Brysonrohan DO CHEMISTRY ORDERABLES Fi nal Result [facility] [facility] [place] [address] documented in this encounter Visit Diagnoses Diagnosis DUB (dysfunctional uterine bleeding) Other disorder of menstruation and other abnormal bleeding from female genital tract Abdominal pain, suprapubic Abdominal pain, other specified site documented in this encounter Administered Medications Inactive Administered Medications - up to 3 most recent administrations Medication Order MAR Action Action Date Dose Rate Site 0.9 % sodium chloride solution at 999 mL/hr, Intravenous, ONCE, 1 dose, On Ketty 12/17/21 at 2100 New Bag 12/17/2021 8:53 PM PER DIEM CLERK 1,000 mL 999 mL/hr acetaminophen (TYLENOL) tablet 650 mg 650 mg, Oral, ONCE, 1 dose, On Ketty 12/17/21 at 2100, Maximum dose of acetaminophen is 4000 mg from all sources in 24 hours. Given 12/17/2021 8:53 PM PER DIEM CLERK 650 mg diphenhydrAMINE (BENADRYL) injection 50 mg 50 mg, Intravenous, ONCE, 1 dose, On Ketty 12/17/21 at 2100 Given 12/17/2021 8:53 PM PER DIEM CLERK 50 mg documented in this encounter Active and Recently Administered Medications Times are shown in PER DIEM CLERK. Scheduled Medication Order 12/15/2021 12/16/2021 12/17/2021 0.9 % sodium chloride solution (COMPLETED) at 999 mL/hr, Intravenous, ONCE, 1 dose, On Ketty 12/17/21 at 2100 2052 (New Bag - Prov ider: Maite Garvey RN)2136 (Stopped - Provider: Maite Garvey RN) acetaminophen (TYLENOL) tablet 650 mg (COMPLETED) 650 mg, Oral, ONCE, 1 dose, On Ketty 22 at 2100, Maximum dose of acetaminophen is 4000 mg from all sources in 24 hours. 2052 (Given - Provid er: Maite Garvey RN) diphenhydrAMINE (BENADRYL) injection 50 mg (COMPLETED) 50 mg, Intravenous, ONCE, 1 dose, On Ketty 12/17/21 at 2100 2053 (Given - Provid er: Maite Garvey RN) documented in this encounter Additional Health Concerns Assessment Noted Time PHQ-9 Depression Total Score: 1 08/09/20 18 1:00 PM CDT documented as of this encounter Care Teams Media Marketing Coordinator Relationship Specialty Start Date End Date Provider, None [place] PCP - General 12/17/21 Richy Villalpando MD Consulting Physician Obstetrics & Gynecology 08/09/18 Mee See APRN, SINGING TEACHER Nurse Practitioner Neurology 08/21/18 documented as of this encounter
--- OUTSIDE RECORDS SUMMARY | 2024-11-30 00:21 | XMS_ITS | Encounter Summary ---
Author Organization [facility] Address [address] [place] [address] Phone Care Team Providers Care Instant Potato Processing Supervisor Name Role Phone Richy Villalpando MD Unavailable Mee See APRN, LIVESTOCK LABORER Unavailable Unavaila [facility] See Gonsalez MD Primary Care Provider [phone] Reason for Visit * Reason Comments Medication Refill Encounter Details Date Type Department Care Team (Late st Contact Info) Description 01/07/2020 Refill [facility] [address] [place] [address] Arabella Quintana SENIOR CHEMICAL ENGINEER, LIVESTOCK LABORER [address] [place] [address] Medication Refill Social History Tobacco [...] encounter Miscellaneous Notes * Telephone Encounter - Gabriela Rico RN - 01/09/2020 8:51 AM SINTER PRESS OPERATOR Unable to reach patient via telephone. Letter mailed to call the office. ER PRESS OPERATOR * Telephone Encounter - Gabriela Rico RN - 01/08/2020 8:16 AM SINTER PRESS OPERATOR Attempted to call patient to schedule an appointment, no answer at this time. Left message to call back. ER PRESS OPERATOR * Telephone Encounter - Gabriela Rico RN - 01/07/2020 11:54 AM SINTER PRESS OPERATOR Attempted to call patient to schedule an appointment, no answer at this time. Left message to call back. ER PRESS OPERATOR * Telephone Encounter - See Gonsalez MD - 01/07/2020 11:46 AM SINTER PRESS OPERATOR Refill request approved. Patient is 6 months overdue for fasting follow-up office visit. ER PRESS OPERATOR * Telephone Encounter - Arabella Mcguire RN - 01/07/2020 11:06 AM SINTER PRESS OPERATOR Requested Prescriptions Pending Prescriptions Disp Refills hydroCHLOROthiazide (MICROZIDE) 12.5 MG Capsule [Pharmacy Med Name: HYDROCHLOROTHIAZIDE 12.5MG CAPSULES] 90 Cap 1 Sig: TAKE ONE CAPSULE BY MOUTH DAILY Cardiovascular: Diuretics Passed - 01/07/2020 9:58 AM Passed - Valid encounter within last 12 months Past Office Visits Recent Outpatient Visits 6 months ago [facility] - Arabella Guillen, LIFE ASSURANCE REPRESENTATIVE, LIVESTOCK LABORER 1 year ago [facility] - Arabella Guillen, LIFE ASSURANCE REPRESENTATIVE, LIVESTOCK LABORER 1 year ago [facility] Arabella Guillen, LIFE ASSURANCE REPRESENTATIVE, LIVESTOCK LABORER 1 year ago [facility] - Arabella Guillen, LIFE ASSURANCE REPRESENTATIVE, LIVESTOCK LABORER 1 year ago Encounter for health maintenance examination (Adult) [facility] - See Easton MD Upcoming Appointments Passed - Last BP in normal range ER PRESS OPERATOR documented in this encounter Plan of Treatment Not on file documented as of this encounter Visit Diagnoses Not on filedocumented in this encounter Additional Health Concerns Assessment Noted Time PHQ-9 Depression Total Score: 1 08/09/20 18 1:00 PM CDT documented as of this encounter Care Teams Instant Potato Processing Supervisor Relationship Specialty Start Date End Date See Gonsalez MD [address] [place] [address] PCP - General Internal Medicine 07/06/19 05/26/20 Richy Villalpando MD Consulting Physician Obstetrics & Gynecology 08/09/18 Mee See APRN, LIVESTOCK LABORER Nurse Practitioner Neurology 08/21/18 documented as of this encounter
--- OUTSIDE RECORDS SUMMARY | 2024-11-30 00:21 | XMS_ITS | Encounter Summary ---
Author Organization [facility] Address [address] [place] [address] Phone Care Team Providers Care Physical Therapy Aide Name Role Phone Richy Villalpando MD Unavailable Mee See APRN, SPAR FINISHER Unavailable Unavaila ble Arabella Quintana APRN, SPAR FINISHER Primary Care Provider Provider, None Primary Care Provider Unavailabl e Reason for Visit * Reason Comments Medication Refill Encounter Details Date Type Department Care Team (Late st Contact Info) Description 07/31/2020 Refill [facility] [place] [address] [place] [address] Arabella Quintana APRN, SPAR FINISHER [address] [place] [address] Medication Refill Social History Tobacco [...] Miscellaneous Notes * Telephone Encounter - Arabella Quintana APN, LEROY - 08/01/2020 12:37 PM CDT Duplicate request. * Telephone Encounter - Miladys Cook RN - 08/01/2020 10:59 AM CDT Medication failed the protocol, provider to review and approve the medication order. Requested Prescriptions Pending Prescriptions Disp Refills venlafaxine (EFFEXOR-XR) 75 MG CAPSULE SR 24 HR [Pharmacy Med Name: VENLAFAXINE ER 75MG CAPSULES] 90 Cap 3 Sig: TAKE 1 CAPSULE BY MOUTH DAILY Not Delegated - Psychiatry: Antidepressants: Other Failed - 07/31/2020 10:38 PM Failed - Valid encounter within last 12 months Past Office Visits Recent Outpatient Visits 1 year ago [facility] - Arabella Guillen APN, CNP 1 year ago [facility] - Arabella Guillen APN, CNP 1 year ago [facility] - Arabella Guillen APN, CNP 1 year ago [facility] - Arabella Guillen APN, CNP 1 year ago Encounter for health maintenance examination (Adult) [facility] - See Easton MD Upcoming 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 Showing future appointments within next 90 days with a meds authorizing provider and meeting all other requirements Failed - This refill cannot be delegated Passed - Last BP in normal range [...] documented as of this encounter Care Teams Physical Therapy Aide Relationship Specialty Start Date End Date Arabella Quintana APRN, SPAR FINISHER [address] [place] [address] PCP - General Advanced Practice Nurse 05/27/20 01/07/21 Provider, None [place] PCP - General 12/17/21 Richy Villalpando MD Consulting Physician Obstetrics & Gynecology 08/09/18 Mee See APRN, SPAR FINISHER Nurse Practitioner Neurology 08/21/18 documented as of this encounter
--- OUTSIDE RECORDS SUMMARY | 2024-11-30 00:26 | XMS_ITS | Encounter Summary ---
Author Organization [facility] Address [address] [place] [address] Care Team Providers Care Executive Director Name Role Phone See Gonsalez MD Primary Care Provider + Zachary Driver MD Unavailable [phone] Jasbir Nielson MD Unavailable [phone] Reason for Visit * Reason Onset Date Comments Test Results 06/06/2020 Encounter Details Date Type Department Care Team (Late st Contact Info) Description 06/06/2020 Telephone [facility]/ Physicians [address] [place], [place] [id number] [place] [address] [place] [address] Test Results Social History Tobacco Use Types Packs/Day Years Used Date Smoking Tobacco: Never Smokeless Tobacco: Never Alcohol Use Standard Drinks/Week Comments Yes 0 (1 standard drink = 0.6 oz pur e alcohol) rare PHQ-2 Answer Date Recorded PHQ-2 Score 0 07/21/2019 Comments No Sex and Gender Information Value Date Recorded Sex Assigned at Not on file Legal Sex Female 1:47 AM NURSE ESTHETICIAN Gender Identity Not on file Sexual Orientation Not on file documented as of this encounter Miscellaneous Notes * Telephone Encounter - Nano Ambrocio RN - 06/06/2020 8:38 AM CDT Attempt to contact patient by phone regarding negative Covid 19 results unsuccessful. Will send a letter regarding test results. documented in this encounter Plan of Treatment Not on file documented as of this encounter Visit Diagnoses Not on filedocumented in this encounter Additional Health Concerns Infection Onset Date Last Indicated Resolved Time MRSA Comment:Backloaded September 16, 2011 05/28/2011 05/28/201106/28 5:00 AM CDT Respiratory Infection (EDDY), contact + droplet Comment:Automatically added due to negative COVID-19 result. 06/05/2020 06/05/2020 06/19/2020 3:0 6 AM CDT documented as of this encounter Care Teams Executive Director Relationship Specialty Start Date End Date See Gonsalez MD PCP - General 10/15/18 02/14/21 [place] [id number] [address] Consulting Physician Cardiovascular Disease 11/01/18 [place] [address] [address] Consulting Physician Cardiovascular Disease 11/06/18 documented as of this encounter
--- OUTSIDE RECORDS SUMMARY | 2024-11-30 00:26 | XMS_ITS | Encounter Summary ---
Author Organization [facility] Address [address] [place] [address] Care Team Providers Care Quality Control Analyst Name Role Phone Zachary Driver MD Unavailable [phone] Jasbir Nielson MD Unavailable [phone] Miguel Vazquez MD Primary Care Provider Reason for Visit * Reason Comments Knee Pain Encounter Details Date Type Department Care Team (Late st Contact Info) Description 01/17/2024 8:43 AM RIG SITE ENGINEER - 01/17/2024 10:08 AM [facility] Emergency [facility] Emergency Department [address] [place] [address] Amber Brewer MD [address] [place] [address] [place] [address] Knee strain, right, initial encounter (Primary Dx) Discharge Disposition: Discharge to home or self care Social History Tobacco Use Types Packs/Day Years Used Date Smoking Tobacco: Never Smokeless Tobacco: Never Alcohol Use Standard Drinks/Week Comments Yes 0 (1 standard drink = 0.6 oz pur e alcohol) rare AUDIT-C Answer Date Recorded Q1: How often do you have a drink containing alc ohol? Monthly or less 02/16/2021 Q2: How many drinks containi ng alcohol do you have on a typical day when you are drinking? 1 or 2 02/16/2021 Q3: How often do you have si x or more drinks on one occasion? Never 02/16/2021 PHQ-2 Answer Date Recorded PHQ-2 Total Score (If total score is 3 or more points, staff should administer the PHQ-9) 0 02/16/2021 Personal Safety Answer Date Recorded Have you ever been in or are you currently in a harmful physical or emotional relationship or is someone making you feel afraid or unsafe? Denies 01/17/2024 Comments No Sex and Gender Information Value Date Recorded Sex Assigned at Not on file Legal Sex Female 1:47 AM RIG SITE ENGINEER Gender Identity Not on file Sexual Orientation Not on file documented as of this encounter Last Filed Vital Signs Vital Sign Reading Time Taken Comments Blood Pressure 156/98 01/17/2024 8:41 AM RIG SITE ENGINEER Pulse 94 01/17/2024 8:41 AM RIG SITE ENGINEER Temperature 36.4 ??C (97.6 ??F) 01/17/2024 8:41 AM CS T Respiratory Rate 18 01/17/2024 8:41 AM RIG SITE ENGINEER Oxygen Saturation 100% 01/17/2024 8:41 AM RIG SITE ENGINEER Inhaled Oxygen Concentration - - Weight 94.3 kg (208 lb) 01/17/2024 8:41 AM RIG SITE ENGINEER Height 170.2 cm (5' 7 ) 01/17/2024 8:41 AM RIG SITE ENGINEER Body Mass Index 32.58 01/17/2024 8:41 AM RIG SITE ENGINEER documented in this encounter Discharge Instructions * Discharge Instructions* Amber Brewer MD - 01/17/2024 9:28 AM RIG SITE ENGINEER Meds as prescribed. Follow-up with your doctor in 2-3 days. Return to the ER with worsening symptoms or with concerns. SITE ENGINEER * Attachments The following attachments cannot be sent through Care Everywhere. * Muscle Strain, Extremity (Tajik) documented in this encounter Medications at Time of Discharge acetaminophen (TYLENOL) 500 mg tablet Take 2 tablets (1,000 mg total) by mouth every 8 (eight) hours as needed for pain for up to 20 doses 40 tablet 3 aspirin 81 mg tablet Take 81 mg by mouth daily. fluticasone propionate (FLONASE) 50 mcg/actuation nasal spray Administer 1 spray into each nostril daily 16 g 2 hydroCHLOROthiazide (MICROZIDE) 12.5 mg capsule Take 12.5 mg by mouth daily 1 HYDROcodone-acetami nophen (NORCO) 5-325 mg per tabletIndications:P ain Take 1 tablet by mouth every 6 (six) hours as needed for pain for up to 10 doses 10 tablet 4 ibuprofen (ADVIL,MOTRIN) 600 mg tablet Take 1 tablet (600 mg total) by mouth every 6 (six) hours as needed for pain 30 tablet 3 losartan (COZAAR) 25 mg tablet Take 25 mg by mouth daily 1 medroxyPROGESTERone 150 mg/mL injection INJECT 1 MILLILITER INTRAMUSCULARLY EVERY 3 MONTHS 3 ondansetron ODT (ZOFRAN-ODT) 4 mg disintegrating tablet Take 1 tablet (4 mg total) by mouth every 8 (eight) hours as needed for nausea or vomiting 20 tablet 3 traMADoL (ULTRAM) 50 mg tablet Take 1 tablet (50 mg total) by mouth every 6 (six) hours as needed for pain for up to 10 doses 10 tablet 3 venlafaxine XR (EFFEXOR-XR) 37.5 mg 24 hr capsule Take by mouth daily 3 documented as of this encounter Ordered Prescriptions Prescription Sig Dispense Quantity Refills Last Filled Start Date End Date HYDROcodone-acetami nophen (NORCO) 5-325 mg per tabletIndications:P ain Take 1 tablet by mouth every 6 (six) hours as needed for pain for up to 10 doses 10 tablet 01/17/2024 documented in this encounter Discharge Disposition Disposition Code Departure Means Destination Comment s Discharge to home or self care documented in this encounter ED Notes * Amber Brewer MD - 01/17/2024 9:26 AM CST HPI Chief Complaint Patient presents with Knee Pain HPI Patient History: This is a 33-year-old female with history of hypertension, peripheral neuropathy, migraines who presents with right knee pain after tripping and hearing a pop in her right knee yesterday. She states she has had pain develop since and now feels like she is unable to bear much weighton the leg. She feels that she must keep her leg slightly bent and if she straightens it all the way or bends it much more than about 10-15 degrees she has intense pressure. Patient Active Problem List Diagnosis Date Noted Essential hypertension 02/16/2021 Anxiety 02/16/2021 Acute chest pain Unstable angina (CMS/HCC) (HCC) 11/04/2018 Secondary hypertension 11/04/2018 Idiopathic peripheral neuropathy 11/04/2018 History of migraine headaches 11/04/2018 Altered mental status Hypertensive urgency 10/16/2018 Hypokalemia Past Medical History: Diagnosis Date Anxiety Headache HX OTHER MEDICAL Carpal tunnel syndrome Hypertension IBS (irritable bowel syndrome) Migraine Peripheral neuropathy Past Surgical History: Procedure Laterality Date BREAST BIOPSY CERVICAL BIOPSY W/ LOOP ELECTRODE EXCISION OTHER SURGICAL HISTORY Carpal tunnel syndrome: Vicodin and Tramadol Family History Problem Relation Age of Onset Diabetes Other Family history of Diabetes mellitus; Hypertension Other Family history of Hypertension; Hypertension Mother Mitral valve prolapse Mother Social History Tobacco Use Smoking status: Never Smokeless tobacco: Never Substance and Sexual Activity Alcohol use: Yes Comment: rare Drug use: No Sexual activity: Defer Social History Social History Narrative Grandpa had an NE in his 60s Review of Systems Review of Systems Constitutional: Negative for appetite change. HENT: Negative for congestion. Eyes: Negative for pain. Respiratory: Negative for chest tightness. Cardiovascular: Negative for leg swelling. Gastrointestinal: Negative for abdominal pain. Endocrine: Negative for polydipsia. Genitourinary: Negative for dysuria. Musculoskeletal: Negative for back pain. R knee pain Allergic/Immunologic: Negative for food allergies. Neurological: Negative for headaches. Hematological: Negative for adenopathy. Psychiatric/Behavioral: Negative for behavioral problems. All other systems reviewed and are negative. Breast: Negative for breast redness. Physical Exam ED Triage Vitals [01/17/24 0841] Temp Pulse Resp BP SpO2 36.4 ??C (97.6 ??F) 94 18 156/98 100 % Temp src Heart Rate Source Patient Position BP Location FiO2 (%) Temporal -- -- -- -- Height Height Method Weight Weight Method 1.702 m (5' 7 ) Stated 94.3 kg (208 lb) Stated Physical Exam Vitals and nursing note reviewed. Constitutional: General: She is not in acute distress. Appearance: Normal appearance. She is normal weight. She is not ill-appearing, toxic-appearing or diaphoretic. HENT: Head: Normocephalic and atraumatic. Right Ear: External ear normal. Left Ear: External ear normal. Nose: Nose normal. Mouth/Throat: Mouth: Mucous membranes are moist. Pharynx: Oropharynx is clear. Eyes: Extraocular Movements: Extraocular movements intact. Conjunctiva/sclera: Conjunctivae normal. Pupils: Pupils are equal, round, and reactive to light. Cardiovascular: Rate and Rhythm: Normal rate and regular rhythm. Pulses: Normal pulses. Heart sounds: Normal heart sounds. Pulmonary: Effort: Pulmonary effort is normal. Breath sounds: Normal breath sounds. Abdominal: General: Bowel sounds are normal. Palpations: Abdomen is soft. Tenderness: There is no abdominal tenderness. There is no right CVA tenderness or left CVA tenderness. Musculoskeletal: General: Normal range of motion. Cervical back: Normal range of motion and neck supple. Right lower leg: No edema. Left lower leg: No edema. Comments: Right knee tender- +ballatable, minimal tenderness with full extension Skin: General: Skin is warm. Capillary Refill: Capillary refill takes less than 2 seconds. Neurological: General: No focal deficit present. Mental Status: She is alert. Psychiatric: Mood and Affect: Mood normal. MDM NIH Score Medical Decision Making This is a 33-year-old female with history of hypertension, peripheral neuropathy, migraines who presents with right knee pain after tripping and hearing a pop in her right knee yesterday. Differential includes strain, meniscal or ligamentous injury, other Amount and/or Complexity of Data Reviewed Independent Historian: Details: Patient Radiology: ordered. Risk Prescription drug management. Final diagnoses: Knee strain, right, initial encounter Amber Brewer MD 01/24/24 1501 SITE ENGINEER * Tiara Caldwell RN - 01/17/2024 8:40 AM CST Pt ambulatory to triage with c/o R knee pain after tripping yesterday and heard a pop SITE ENGINEER documented in this encounter Plan of Treatment Not on file documented as of this encounter Procedures Procedure Name Priority Date/Time Associated Diagnosis Comments XR KNEE RIGHT 3 VIEWS ED 01/17/2024 9:03 AM RIG SITE ENGINEER documented in this encounter Results * XR Knee Right 3 Views (01/17/2024 9:03 AM RIG SITE ENGINEER) Anatomical Region Laterality Modality Lower Extremities, Knee Right Computed Radiography 01/17/2024 9:06 AM RIG SITE ENGINEER Narrative 01/17/2024 9:09 AM RIG SITE ENGINEER EXAM DESCRIPTION: XR KNEE RIGHT 3 VIEWS REASON FOR STUDY: pain ?? c/o R knee pain after tripping last night and heard a pop ?? No prior injury or surgery ? TECHNIQUE: Three views of the right knee COMPARISON: None available FINDINGS: BONES/JOINTS: There is no acute fracture, malalignment or osseous abnormalities. The joint spaces are normal. SOFT TISSUES: Within normal limits. ?? IMPRESSION: No acute osseous abnormality. THIS IS AN ELECTRONICALLY VERIFIED FINAL REPORT 01/17/2024 9:09 AM - Electronically signed by ??José Gaines M.D. KN: BRET D: ??01/17/2024 9:09 AM T: ??01/17/2024 9:09 AM Report ID: [id number] Reading Location: ??[id number] Procedure Note José Gaines MD - 01/17/2024 EXAM DESCRIPTION: XR KNEE RIGHT 3 VIEWS REASON FOR STUDY: pain c/o R knee pain after tripping last night and heard a pop No priorinjury or surgery TECHNIQUE: Three views of the right knee COMPARISON: None available FINDINGS: BONES/JOINTS: There is no acute fracture, malalignment or osseous abnormalities. The joint spaces are normal. SOFT TISSUES: Within normal limits. IMPRESSION: No acute osseous abnormality. THIS IS AN ELECTRONICALLY VERIFIED FINAL REPORT 01/17/2024 9:09 AM - Electronically signed by José QUEEN: BRET Report ID: [id number] Reading Location: [id number] Amber Brewer MD IMG XR PROCEDURES Final R esult documented in this encounter Visit Diagnoses Diagnosis Knee strain, right, initial encounter- Primary documented in this encounter Administered Medications Inactive Administered Medications - up to 3 most recent administrations Medication Order MAR Action Action Date Dose Rate Site HYDROcodone-acetaminophen (NORCO) 5-325 mg per tablet 2 tablet 2 tablet, oral, Once, On Tue01/17/24 at 0928, For 1 dose, Indications: PainIndications:Pain Given 01/17/2024 9:44 AM RIG SITE ENGINEER 2 tablets ondansetron ODT (ZOFRAN-ODT) disintegrating tablet 4 mg 4 mg, oral, Once, On Tue01/17/24 at 0928, For 1 dose, Indications: Nausea, VomitingIndications:Nausea,Vomi ting Given 01/17/2024 9:44 AM RIG SITE ENGINEER 4 mg documented in this encounter Active and Recently Administered Medications Times are shown in RIG SITE ENGINEER. Scheduled Medication Order 01/15/2024 01/16/2024 01/17/2024 HYDROcodone-acetaminophen (NORCO) 5-325 mg per tablet 2 tablet (COMPLETED) 2 tablet, oral, Once, On Tue01/17/24 at 0928, For 1 dose, Indications: Pain 0944 (Given - Provid er: Violet Espino RN) ondansetron ODT (ZOFRAN-ODT) disintegrating tablet 4 mg (COMPLETED) 4 mg, oral, Once, On Tue01/17/24 at 0928, For 1 dose, Indications: Nausea, Vomiting 0944 (Given - Provid er: Violet Espino RN) documented in this encounter Orders General Supply Count Last Ordered Date First Or dered Date CRUTCH 1 01/17/2024 Nursing Count Last Ordered Date First Orde red Date BRACE APPLICATION 01/17/2024 documented in this encounter Care Teams Quality Control Analyst Relationship Specialty Start Date End Date Miguel Vazquez MD [address] [facility] [address] [place] [address] PCP - General Family Medicine 04/04/23 09/14/24 [place] [id number] [address] Consulting Physician Cardiovascular Disease 11/01/18 [place] [address] [address] Consulting Physician Cardiovascular Disease 11/06/18 documented as of this encounter
--- OUTSIDE RECORDS SUMMARY | 2024-11-30 00:26 | XMS_ITS | Clinical Summary ---
Author [place] [facility] [place] [address] Address [address] [place] [address] Care Team Providers Care Deputy City Clerk Name Role Phone Zachary Driver MD Unavailable [phone] Jasbir Nielson MD Unavailable [phone] Nikolas Shen MD Primary Care Provi nehemiah Allergies Active Allergy Reactions Criticality Noted Date Comments Prochlorperazine Anaphylaxis High Medications aspirin 81 mg tablet Take 81 mg by mouth daily. Active hydroCHLOROthiazi de (MICROZIDE) 12.5 mg capsule Take 12.5 mg by mouth daily 021 Active losartan (COZAAR) 25 mg tablet Take 25 mg by mouth daily 021 Active amLODIPine (NORVASC) 10 mg tablet Take 1 tablet (10 mg total) by mouth daily 30 tablet 021 Active fluticasone propionate (FLONASE) 50 mcg/actuation nasal spray Administer 1 spray into each nostril daily 16 g 022 Active cyclobenzaprine (FLEXERIL) 5 mg tablet Take 1 tablet (5 mg total) by mouth 2 (two) times a day as needed for muscle spasms for up to 5 days 10 tablet 023 Active traMADoL (ULTRAM) 50 mg tablet Take 1 tablet (50 mg total) by mouth every 6 (six) hours as needed for pain for up to 10 doses 10 tablet 023 Active medroxyPROGESTERo ne 150 mg/mL injection INJECT 1 MILLILITER INTRAMUSCULARLY EVERY 3 MONTHS 023 Active venlafaxine XR (EFFEXOR-XR) 37.5 mg 24 hr capsule Take by mouth daily 023 Active ondansetron ODT (ZOFRAN-ODT) 4 mg disintegrating tablet Take 1 tablet (4 mg total) by mouth every 8 (eight) hours as needed for nausea or vomiting 20 tablet 023 Active ibuprofen (ADVIL,MOTRIN) 600 mg tablet Take 1 tablet (600 mg total) by mouth every 6 (six) hours as needed for pain 30 tablet 023 Active acetaminophen (TYLENOL) 500 mg tablet Take 2 tablets (1,000 mg total) by mouth every 8 (eight) hours as needed for pain for up to 20 doses 40 tablet 023 Active HYDROcodone-aceta minophen (NORCO) 5-325 mg per tabletIndications :Pain Take 1 tablet by mouth every 6 (six) hours as needed for pain for up to 10 doses 10 tablet 024 Active amLODIPine (NORVASC) 10 mg tablet Take 1 tablet (10 mg total) by mouth daily. 30 tablet 018 Suspended Active Problems Problem Noted Date Diagnosed Date Essential hypertension 02/16/2021 Assessment & Plan (02/16/2021 8:39 AM CDT): Cont home meds, monitor Anxiety 02/16/2021 Assessment & Plan (02/16/2021 8:41 AM CDT): Cont effexor, pt had missed med x 4 days after misplacing. Restarted yesterday and symptoms improved with ativan given in ER, will cont Effexor Unstable angina (CMS/HCC) 11/04/2018 Secondary hypertension 11/04/2018 Idiopathic peripheral neuropathy 11/04/2018 History of migraine headaches 11/04/2018 Hypertensive urgency 10/16/2018 Hypokalemia Altered mental status Acute chest pain Assessment & Plan (02/16/2021 8:41 AM CDT): Atypical, enzymes neg, ?h/o of HI in past vs HTN urgency. Cardiology consulted from ER, will await their input, cont ASA Resolved Problems Problem Noted Date Diagnosed Date Resolved Date Hypertensive emergency 08/01/201810/16 Assessment & Plan (08/01/2018 3:12 AM CDT): Patient presented to the emergency department noted to have severely elevated blood pressures. Started on nicardipine drip currently blood pressures improving Patient complains of headache, tingling sensation in the arms and legs had resolved. Will continue on nicardipine drip with a goal of systolic blood pressure less than 130. Will start on amlodipine Patient denies any previous history of of hypertension. Will get ultrasound of the kidneys to rule out renovascular disease. Consider obtaining echocardiogram for further assessment of left ventricular function if clinically necessary. Strict I&Os Will check lipid panel in a.m. Will start on aspirin Urinary tract infection without hematuria 10/16/2018 Immunizations Name Administration Dates Next Due Influenza, Unspecified 08/27/2020 Surgical History Surgery Date Site/Laterality Comments OTHER SURGICAL HISTORY Carpal tunnel syndrome: Vicodin and Tramadol BREAST BIOPSY CERVICAL BIOPSY W/ LOOP ELEC TRODE EXCISION Medical History Medical History Date Comments Hx Other Medical Carpal tunnel s yndrome Headache Migraine Hypertension Anxiety Peripheral neuropathy IBS (irritable bowel syndrome) Family History Medical History Relation Name Comments Hypertension Mother Mitral valve prolapse Mother Diabetes Other 1 Family history of Diabetes mellitus; Hypertension Other 2 Family history of Hypertension; Relation Name Status Comments Mother Other 1 Other 2 Social History Tobacco Use Types Packs/Day Years [...] on file 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 Gender Identity Not on file Sexual Orientation Not on file Obstetrics History Last Filed Vital Signs Vital Sign Reading Time Taken Comments Blood Pressure 156/98 01/17/2024 8:41 AM FI[employer] F[employer] Pulse 94 01/17/2024 8:41 AM FIELD [employer] F[employer] Temperature 36.4 ??C (97.6 ??F) 01/17/2024 8:41 AM CS T Respiratory Rate 18 01/17/2024 8:41 AM FIELD [employer] FARM[employer] Oxygen Saturation 100% 01/17/2024 8:41 AM FIELD [employer] F[employer]ER Inhaled Oxygen Concentration - - Weight 94.3 kg (208 lb) 01/17/2024 8:41 AM FI[employer] F[employer] Height 170.2 cm (5' 7 ) 01/17/2024 8:41 AM FI[employer] F[employer] Body Mass Index 32.58 01/17/2024 8:41 AM FIELD [employer] F[employer] Plan of Treatment Health Maintenance Due Date Last Done Comments Cervical Cancer Screening 1988 Hepatitis C Screening 1988 Varicella Vaccines (1 of 2 - 13+ 2-dose series) 2001 Hepatitis B Screening 2006 Regular Well Visit/Exam 18-64 2006 Depression Screening 02/15/2022 02/15/2021, 10/30/2018, 07/31/2018, Additional history exists Influenza Vaccine (#1) 2024 , 08/09/2018, 01/16/2017, Additional history exists DTaP/Tdap/Td Vaccine (2 - Td or Tdap) 12/30/2026 12/30/2016 HPV Vaccines Aged Out No longer eligi ble based on patient's age to complete this topic Pneumococcal vaccine <65 Aged Out No longer eligible based on patient's age to complete this topic Insurance [employer] ACCESS OOS [employer] OOS Advance Directives For more information, please contact: [phone] * Full Code (Latest Code Status on File) Date Activated Date Inactivated Comments 02/16/2021 3:27 AM 02/16/2021 3:36 PM * Full Code Date Activated Date Inactivated Comments 11/04/2018 3:10 AM 11/06/2018 5:58 PM * Full Code Date Activated Date Inactivated Comments 10/30/2018 7:47 AM 11/01/2018 3:15 PM * Full Code Date Activated Date Inactivated Comments 07/31/2018 8:31 PM 08/02/2018 6:45 PM * Full Code Date Activated Date Inactivated Comments 07/31/2018 2:58 PM 07/31/2018 8:31 PM Care Teams Deputy City Clerk Relationship Specialty Start Date End Date Nikolas Shen MD [address] [place] [address] [address] [address] PCP - General Family Medicine 09/15/24 [place] [id number] [address] Consulting Physician Cardiovascular Disease 11/01/18 [place] [id number] [address] Consulting Physician Cardiovascular Disease 11/06/18
--- OUTSIDE RECORDS SUMMARY | 2024-11-30 00:26 | XMS_ITS | Encounter Summary ---
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 Name Role Phone See Gonsalez MD Primary Care Provider + Zachary Driver MD Unavailable [phone] Jasbir Nielson MD Unavailable [phone] Encounter Details Date Type Department Care Team (Latest Contact Info) Description 12/19/2019 Travel Social History Tobacco Use Types Packs/Day Years Used Date Smoking Tobacco: Never Smokeless Tobacco: Never Alcohol Use Standard Drinks/Week Comments Yes 0 (1 standard drink = 0.6 oz pur e alcohol) rare PHQ-2 Answer Date Recorded PHQ-2 Score 0 07/21/2019 Comments No Sex and Gender Information Value Date Recorded Sex Assigned at Not on file 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 Gender Identity Not on file Sexual Orientation Not on file documented as of this encounter Plan of Treatment Not on file documented as of this encounter Visit Diagnoses Not on filedocumented in this encounter Additional Health Concerns Infection Onset Date Last Indicated Resolved Time MRSA Comment:Backloaded September 16, 2011 05/28/2011 05/28/201106/28 5:00 AM CDT documented as of this encounter Care Teams Oil Burner Servicer And Installer Relationship Specialty Start Date End Date See Gonsalez MD PCP - General 10/15/18 02/14/21 [place] [id number] [address] Consulting Physician Cardiovascular Disease 11/01/18 [place] [id number] [address] Consulting Physician Cardiovascular Disease 11/06/18 documented as of this encounter
--- OUTSIDE RECORDS SUMMARY | 2024-11-30 00:26 | XMS_ITS | Encounter Summary ---
Author Organization 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 Name Role Phone See Gonsalez MD Primary Care Provider + Zachary Driver MD Unavailable [phone] Jasbir Nielson MD Unavailable [phone] Reason for Visit * Reason Comments COVID-19 EVALUATION Fatigue Vomiting Encounter Details Date Type Department Care Team (Late st Contact Info) Description 06/03/2020 2:38 PM CDT - 06/03/2020 8:55 PM CDT Emergency [facility] Emergency Department [address] [place] [address] Jailyn Fofana MD [address] [place] [address] Vomiting (Primary Dx); Colitis; Microscopic hematuria Discharge Disposition: Discharge to home or self [...] on file 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 Gender Identity Not on file Sexual Orientation Not on file documented as of this encounter Last Filed Vital Signs Vital Sign Reading Time Taken Comments Blood Pressure 96/66 06/03/2020 2:53 PM CDT Pulse 82 06/03/2020 6:45 PM CDT Temperature 36 ??C (96.8 ??F) 06/03/2020 2:53 PM CDT Respiratory Rate 15 06/03/2020 6:45 PM CDT Oxygen Saturation 100% 06/03/2020 6:45 PM CDT Inhaled Oxygen Concentration - - Weight - - Height - - Body Mass Index - - documented in this encounter Discharge Diagnoses Diagnosis Noninfective gastroenteritis and colitis, unspecified - NONINFECTIVE GASTROENTERITIS AND COLITIS, UNSPECIFIED Other microscopic hematuria - OTHER MICROSCOPIC HEMATURIA Essential (primary) hypertension - ESSENTIAL (PRIMARY) HYPERTENSION Unspecified essential hypertension Polyneuropathy, unspecified - POLYNEUROPATHY, UNSPECIFIED Anxiety disorder, unspecified - ANXIETY DISORDER, UNSPECIFIED Irritable bowel syndrome without diarrhea - IRRITABLE BOWEL SYNDROME WITHOUT DIARRHEA prison (current) use of aspirin - HALF-WAY (CURRENT) USE OF ASPIRIN prison (current) use of non-steroidal anti-inflammatories (nsaid) - 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 Return to the emergency department if you are unable to stay hydrated for any reason. Return to the emergency department for black or bloody stool, vomitingblood, fever, or any new concerning symptoms. Otherwise please follow-up with your primary care doctor in the next 1-14 days for re-evaluation. Discuss microscopic hematuria and repeat UA to ensure that microscopic hematuria has resolved. If it does not resolve, please follow-up with urology. Please follow-up with gastroenterology in the next 1-2 weeks for colitis. Your COVID -19 results should return in 1-3 days. You should be called with the results. Please return to the emergency department if you have severe shortness of breath, difficulty breathing, have chest pain especially pressure-like chest pain that radiates to the jaw or down the arm, migratory chest pain that is ripping or tearing in nature and radiates to the back, confusion, slurred speech, numbness or weakness, leg swelling, inability to lay down due to shortness of breath, shortness of breath with exertion, inability to stay hydrated for any reason including intractable vomiting, coughing up blood, feel as though you are going to pass out, or any new concerning symptoms. Otherwise please self quarantine (please see attached paper about self quarantine) for 14 days. Ideally, after emergency department visit, it is recommended that you follow-up with your primary care doctor/provider in a week for re-evaluation, this may be done over the phone. If you are still having any symptoms (such as runny nose, fever, or a cough) you are advised to stay out of public spaces for 14 days and 72 hours after symptoms have completely resolved in you have been fever free for 3 days and/or have negative COVID -19 testing. For outpatient COVID-19 testing: Dawn: [phone] [facility]: [phone] [facility] Dept: [phone] * Attachments The following attachments cannot be sent through Care Everywhere. * Abdominal Pain, Possible Appendicitis, Repeat Exam (Female) (Northern Irish) * Vomiting (Adult) (Northern Irish) * Colitis (AfterCare(R) Instructions(ER/ED)) (Northern Irish) documented in this encounter Medications at Time of Discharge aspirin 81 mg tablet Take 81 mg by mouth daily. polyethylene glycol (MIRALAX) 17 gram/dose powder Take 17 g by mouth daily 510 g 06/03/2020 0 acetaminophen (TYLENOL) 500 mg tablet Take 2 tablets (1,000 mg total) by mouth every 8 (eight) hours as needed for pain for up to 20 doses 40 tablet 06/03/2020 3 dicyclomine (BENTYL) 20 mg tablet Take 1 tablet (20 mg total) by mouth 2 (two) times a day as needed (Crampy abdominal pain) for up to 7 days 14 tablet 06/03/2020 1 docusate sodium (COLACE) 100 mg capsuleIndications:c onstipation Take 1 capsule (100 mg total) by mouth every 12 (twelve) hours 60 capsule 06/03/2020 1 ibuprofen (ADVIL,MOTRIN) 600 mg tablet Take 1 tablet (600 mg total) by mouth every 6 (six) hours as needed for pain for up to 30 doses 30 tablet 06/03/2020 1 ondansetron ODT (ZOFRAN-ODT) 4 mg disintegrating tablet Take 1 tablet (4 mg total) by mouth every 8 (eight) hours as needed for nausea or vomiting 20 tablet 06/03/2020 1 pregabalin (LYRICA) 50 mg capsule Take 1 capsule (50 mg total) by mouth 3 (three) times a day. 90 capsule 1 11/01/2018 1 topiramate (TOPAMAX) 25 mg tablet Take 2 tablets (50 mg total) by mouth 2 (two) times a day. 120 tablet 08/02/2018 1 traMADol (ULTRAM) 50 mg tablet Take 1 tablet (50 mg total) by mouth every 6 (six) hours as needed for pain. 20 tablet 07/30/2018 1 documented as of this encounter Ordered Prescriptions Prescription Sig Dispense Quantity Refills Last Filled Start Date End Date docusate sodium (COLACE) 100 mg capsuleIndications:c onstipation Take 1 capsule (100 mg total) by mouth every 12 (twelve) hours 60 capsule 06/03/2020 1 polyethylene glycol (MIRALAX) 17 gram/dose powder Take 17 g by mouth daily 510 g 06/03/2020 0 ondansetron ODT (ZOFRAN-ODT) 4 mg disintegrating tablet Take 1 tablet (4 mg total) by mouth every 8 (eight) hours as needed for nausea or vomiting 20 tablet 06/03/2020 1 acetaminophen (TYLENOL) 500 mg tablet Take 2 tablets (1,000 mg total) by mouth every 8 (eight) hours as needed for pain for up to 20 doses 40 tablet 06/03/2020 3 ibuprofen (ADVIL,MOTRIN) 600 mg tablet Take 1 tablet (600 mg total) by mouth every 6 (six) hours as needed for pain for up to 30 doses 30 tablet 06/03/2020 1 dicyclomine (BENTYL) 20 mg tablet Take 1 tablet (20 mg total) by mouth 2 (two) times a day as needed (Crampy abdominal pain) for up to 7 days 14 tablet 06/03/2020 1 documented in this encounter Discharge Disposition Disposition Code Departure Means Destination Discharge to home or self care documented in this encounter ED Notes * Jailyn Fofana MD - 06/03/2020 3:48 PM CDT Triage Chief Complaint: Chief Complaint Patient presents with ??? COVID-19 EVALUATION ??? Fatigue ??? Vomiting H&P: Lorena Deshpande is a 29 y.o. female with pertinent past medical history of HTN, and anxiety presents for intermittent n/v onset this morning. The patient is also complaining of achey abdominal pain and generalized fatigue. The patient states she vomited after taking Zofran in this ED. She deniesCOVID exposure at work and home. She denies Hx abdominal surgeries. The patient denies diarrhea, constipation, hematochezia, dysuria, SOB, cough, fever, chills. There are no other alleviating or exacerbating factors. There are no other complaints at this time. ROS: At least 10 systems reviewed and otherwise negative except as in the HPI. Past Medical History: Diagnosis Date ??? Anxiety ??? Headache ??? HX OTHER MEDICAL Carpal tunnel syndrome ??? Hypertension ??? IBS (irritable bowel syndrome) ??? Migraine ??? Peripheral neuropathy Past Surgical History: Procedure Laterality Date ??? BREAST BIOPSY ??? CERVICAL BIOPSY W/ LOOP ELECTRODE EXCISION ??? OTHER SURGICAL HISTORY Carpal tunnel syndrome: Vicodin and Tramadol HOME MEDICATIONS : acetaminophen (TYLENOL) 500 mg tablet amLODIPine (NORVASC) 10 mg tablet aspirin 81 mg tablet dicyclomine (BENTYL) 20 mg tablet docusate sodium (COLACE) 100 mg capsule ibuprofen (ADVIL,MOTRIN) 600 mg tablet ondansetron ODT (ZOFRAN-ODT) 4 mg disintegrating tablet polyethylene glycol (MIRALAX) 17 gram/dose powder pregabalin (LYRICA) 50 mg capsule topiramate (TOPAMAX) 25 mg tablet traMADol (ULTRAM) 50 mg tablet dicyclomine (BENTYL) 20 mg tablet Allergies Allergen Reactions ??? 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 Physical Exam: ED Triage Vitals [06/03/20 1453] Temp Pulse Resp BP SpO2 36 ??C (96.8 ??F) 79 16 96/66 98 % Temp src Heart Rate Source Patient Position BP Location FiO2 (%) Temporal -- -- -- -- GENERAL APPEARANCE: Awake and alert. No acute distress. HEAD: Atraumatic. EYES: Sclera anicteric. EOMI. ENT: Tolerates saliva. NECK: Supple. Trachea midline. No meningismus. HEART: RRR. Radial pulses 2+. LUNGS: Respirations unlabored. CTAB. ABDOMEN: Soft. Non-tender. No guarding or rebound. EXTREMITIES: No acute deformities. SKIN: Warm and dry. NEUROLOGICAL: No gross facial drooping. Moves all 4 extremities spontaneously. PSYCHIATRIC: Normal mood. I have reviewed and interpreted all of the currently available lab results from this visit (if applicable): Labs Reviewed URINALYSIS AND REFLEX TO MICROSCOPIC AND CULTURE - Abnormal Result Value Color, ur Yellow Clarity, ur Clear Specific gravity, ur OVER pH, urine 6.5 Protein, ur ql Trace Glucose, ur ql Negative Ketones, ur Trace Bilirubin, ur Negative Blood, ur 1+ (*) Urobilinogen, ur <2.0 Nitrite, ur Negative Leukocyte esterase, ur 2+ (*) UA reflex comment Reflex to microscopic UA will be performed. Narrative: Urine pH is affected by diet, medications, systemic acid-base disturbances, and renal tubular function. pH may affect urinary stone formation. For example, urine pH below 6.0 may help reduce the tendency for calcium phosphate stones and pH greater than 6.0 may reduce the tendency for uric acid stone formation. Source: [employer].Last revised 12-08-2017 CBC WITH AUTO DIFFERENTIAL - Abnormal WBC 24.7 (*) Hgb 13.3 Hct 40.7 Plt 303 MPV 9.6 RBC 4.45 MCV 91.5 MCH 29.9 MCHC 32.7 RDW CV 13.5 RDW SD 45.3 NRBC abs 0.00 DIFFERENTIAL AUTO - Abnormal Neutrophil abs 22.2 (*) Imm gran abs 0.1 Lymphocyte abs 0.9 Monocyte abs 1.5 (*) Eosinophil abs 0.0 Basophil abs 0.0 Neutrophil pct 89.7 Imm gran pct 0.6 Lymphocyte pct 3.6 Monocyte pct 6.0 Eosinophil pct 0.0 Basophil pct 0.1 URINALYSIS, MICROSCOPIC ONLY - Abnormal WBC, ur 0-5 RBC, ur 11-20 (*) Epithelial cells, squamous, ur 1-5 Bacteria, ur 1+ (*) Mucous, ur Present (*) Hyaline casts, ur 1-5 Culture Reflex Comment Value: Reflex conditions for urine culture (WBC >10) not met. COVID-19 CORONAVIRUS RNA COMPREHENSIVE METABOLIC PANEL Sodium 138 Potassium, pl 3.3 Chloride 97 CO2 28 Anion gap 14 BUN 15 Creatinine 0.90 Glucose 149 Calcium 10.1 Bilirubin, total 0.7 Protein, pl 7.8 Albumin 4.5 Alk phos 103 ALT 12 AST 22 LIPASE Lipase 23 HCG, BLOOD, QUANTITATIVE hCG, quant <5.0 MANUAL DIFFERENTIAL Differential Auto RBC morphology Consistent with RBC Indicies Platelet estimate Adequate EGFR GFR 85 Radiographs (if obtained): Report Reviewed: CT Abdomen Pelvis W Contrast Final Result 1. Colitis involving mid to distal transverse colon extending to the splenic flexure. This could be infectious, inflammatory, or ischemic in etiology. 2. Moderate amount of colonic stool may reflect constipation. 3. No bowel obstruction. Normal appendix. 4. Non-obstructive 1 mm left lower pole renal calculus. No obstructive uropathy. THIS IS AN ELECTRONICALLY VERIFIED FINAL REPORT 06/03/2020 7:46 PM - Electronically signed by Adrian Batista M.D. AB: Report ID: [id number] Reading Location: [place] [address] XR Chest 1 Vw Portable Final Result No acute findings. CT would be more sensitive if there is high clinical suspicion for pneumomediastinum. Electronically signed by: Jasbir Mesa M.D. EKG (if obtained): (All EKGs are interpreted by myself in the absence of a scale tester) Procedures Chart review shows: I reviewed the urine culture results from 08/02/2018, 10/16/2018, and 10/30/2018 which were all negative for clinically significant growth Patient had previous UA on 08/02/2018 was positive for wbc's and leuk esterase as well as bacteria,UA was similar on 10/16/2018 positive for blood as well without RBCs, and again on 10/30/2018 2150 wbc's, at that time 4+ yeast very few epithelial cells 3+ leuk esterase instill there was no clinically significant growth on urine culture Urine culture Order: [id number] Collected: 10/30/2018 04:00 Status: Final result ?Visible to patient: No (Not Released) Final Report: Less than 100,000 colonies/mL (clinically insignificant growth based on current clinical standards) ED course: Vitals: 06/03/20 1453 06/03/20 1845 BP: 96/66 Pulse: 79 82 Resp: 16 15 Temp: 36 ??C (96.8 ??F) TempSrc: Temporal SpO2: 98% 100% ED Course as of Jun 03 2035 Time: 06/03 1714 Value: BUN: 15 Comment: Unlikely to have any significant upper GI bleeding By: Jailyn Fofana MD Time: 06/03 1715 Value: Hgb: 13.3 Comment: No anemia By: Jailyn Fofana MD Time: 06/03 1715 Value: WBC(!): 24.7 Comment: Leukocytosis is nonspecific and nondiagnostic. No immature granulocytes. Does not appear to be a left shift. Differential diagnosis includes bacterial infection, monocytes are elevated, thiscould be viral syndrom including but not limited to mononucleosis. By: Jailyn Fofana MD Time: 06/03 1716 Value: Lipase, Serum: 23 Comment: No pancreatitis By: Jailyn Fofana MD Time: 06/03 1716 Value: Comprehensive metabolic panel: Sodium 138 Potassium, pl 3.3 Chloride 97 CO2 28 Anion gap 14 BUN 15 Creatinine 0.90 Glucose 149 Calcium 10.1 Bilirubin, total 0.7 Protein, pl 7.8 Albumin 4.5 Alk phos 103 ALT 12 AST 22 Comment: No evidence of dehydration, normal LFTs, normal bilirubin By: Jailyn Fofana MD Time: 06/03 1716 Comment: No pneumonia on chest x-ray. COVID test is pending. Treated with Zofran and droperidol forvomiting, Pepcid, L of NS. By: Jailyn Fofana MD Time: 06/03 1752 Comment: Recheck patient, still reporting abdominal pain. Because of the elevated white blood cell count, will obtain urine and CT scan rule out appendicitis. By: Jailyn Fofana MD Time: 06/03 2033 Comment: Patient was re-evaluated, she is feeling much better at this time. No abdominal pain. Tolerating p.o.. No indication for admission at this time. No bacterial infection identified. No indication for antibiotics at this time. No bloody stool. No diarrhea. Infectious colitis is unlikely. I discussed all of her abnormal lab findings including leukocytosis, possibility of early appendicitis and need for recheck, microscopic hematuria, as well as possible colitis. She was discharged with stool softeners, Zofran, Tylenol and ibuprofen as well Bentyl for crampy abdominal pain. She was given return precautions and follow-up instructions to which she verbalized understanding and agreement. By: Jailyn Fofana MD Clinical Impression: 1. Vomiting 2. Colitis 3. Microscopic hematuria Disposition: Discharge (Please note that portions of this note may have been completed with a voice recognition program. Centerless Grinding Machine Adjuster errors occur. Please contact me for any clarification. Portions of this note were prepared by scribe) This note is prepared by Sirisha Palmer acting as a scribe for Jailyn Fofana MD I electronically signed this note at 3:48 PM on 06/03/2020. I, Jailyn Fofana MD, have personally performed the services described in the documentation Jailyn Fofana MD 06/03/202034 * Caroline Lyon RN - 06/03/2020 2:51 PM CDT Pt presents to the ed for c/o vomiting, weakness, fatigue and just not feeling well since this morning. 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 documented in this encounter Plan of Treatment Not on file documented as of this encounter Procedures Procedure Name Priority Date/Time Associated Diagnosis Comments URINALYSIS AND REFLEX TO MICROSCOPIC AND CULTURE STAT 06/03/2020 7:09 PM CDT URINALYSIS, MICROSCOPIC ONLY STAT 06/03/2020 7:[address] ABDOMEN PELVIS W CONTRAST ED 06/03/2020 6:31 PM CDT XR CHEST 1 VIEW ED 06/03/2020 4:31 PM CDT EGFR STAT 06/03/2020 4:07 PM CDT DIFFERENTIAL AUTO STAT 06/03/2020 4:0 7 PM CDT CBC WITH AUTO DIFFERENTIAL STAT 06/03/2020 4:07 PM CDT MANUAL DIFFERENTIAL STAT 06/03/2020 4 :07 PM CDT HCG, BLOOD, QUANTITATIVE STAT 06/03/2020 4:07 PM CDT LIPASE STAT 06/03/2020 4:07 PM CDT COMPREHENSIVE METABOLIC PANEL STAT 06/03/2020 4:07 PM CDT COVID-19 CORONAVIRUS RNA STAT 06/03/2020 3:13 PM CDT documented in this encounter Results * (ABNORMAL) Urinalysis, microscopic only (06/03/2020 7:09 PM CDT) WBC, ur 0-5 0 - 5 /HPF [facility] (MIC[facility]EL) RBC, ur 11-20(A) 0 - 2 /HPF [facility] ([facility]EL) Epithelial cells, squamous, ur 1-5 0 - 5 /HPF [facility] ([facility]) Bacteria, ur 1+(A) [facility] ([facility]) Mucous, ur Present(A) [facility] (MIC[facility]EL) Hyaline casts, ur 1-5 0 - 10 /LPF [facility] ([facility]) Culture Reflex Comment Reflex conditions for urine culture (WBC >10) not met. [facility] ([facility]) Urine 06/03/2020 7:09 PM CDT 06/03/2020 7:13 PM CDT us Jailyn Fofana MD LAB URINE ORDERABLES Fin al Result Performing Organization Address [facility]/ZIP Co de Phone Number [facility] BRYAN (MICHAEL) 1 [facility] Department [place] [address] * (ABNORMAL) Urinalysis reflex to microscopic and culture Urine (06/03/2020 7:09 PM CDT) Color, ur Yellow Yellow [facility] ([facility]) Clarity, ur Clear Clear [facility] (MIC[facility]EL) Specific gravity, ur OVER 1.010 - 1.025 [facility] ([facility]) pH, urine 6.5 [facility] ([facility]) Protein, ur ql Trace Negative [facility] ([facility]) Glucose, ur ql Negative Negative [facility] ([facility]) Ketones, ur Trace Negative [facility] ([facility]) Bilirubin, ur Negative Negative [facility] ([facility]) Blood, ur 1+(A) Negative [facility] ([facility]) Urobilinogen, ur <2.0 <2.0 mg/dL [facility] ([facility]) Nitrite, ur Negative Negative [facility] ([facility]EL) Leukocyte esterase, ur 2+(A) Negative [facility] ([place]) UA reflex comment Reflex to microscopic UA will be performed. [facility] ([facility]) Urine 06/03/2020 7:09 PM CDT 06/03/2020 7:13 PM CDT Narrative [facility] ([facility]) - 06/03/2020 7:54 PM CDT ?? Urine pH is affected by diet, medications, systemic acid-base disturbances, and renal tubular function. ??pH may affect urinary stone formation. ??For example, urine pH below 6.0 may help reduce the tendency for calcium phosphate stones and pH greater than 6.0 may reduce the tendency for uric acid stone formation. Source: [employer]. Last revised 12-08-2017 us Jailyn Fofana MD LAB MICROBIOLOGY - GENER AL ORDERABLES Final Result [facility] (MICHAEL) 1 [facility] Department [place] [address] * CT Abdomen Pelvis W Contrast (06/03/2020 6:31 PM CDT) Anatomical Region Laterality Modality Body N/A Computed Tomogra phy 06/03/2020 6:17 PM CDT Impressions 06/03/2020 7:50 PM CDT 1. ??Colitis involving mid to distal transverse colon extending to the splenic flexure. ??This could be infectious, inflammatory, or ischemic in etiology. 2. ??Moderate amount of colonic stool may reflect constipation. 3. ??No bowel obstruction. ??Normal appendix. 4. ??Non-obstructive 1 mm left lower pole renal calculus. ??No obstructive uropathy. THIS IS AN ELECTRONICALLY VERIFIED FINAL REPORT 06/03/2020 7:46 PM - Electronically signed by Adrian Batista M.D. AB: AB D: ??06/03/2020 7:46 PM T: ??06/03/2020 7:46 PM Report ID: [id number] Reading Location: ??[id number] Narrative 06/03/2020 7:50 PM CDT [facility] ?Imaging Result Name: LORENA DESHPANDE ? Ordering Phys: JAILYN FOFANA Age: 29 ?Date of : 1990 ? Accession Number: [id number] Date of Service: 06/03/2020 ??Gender: F EXAM DESCRIPTION: ?? CT ABDOMEN PELVIS W CONTRAST REASON FOR STUDY: ?? Upper abdominal pain with radiation into the right lower quadrant today. TECHNIQUE: ??CT scan of the abdomen and pelvis performed with intravenous and without oral contrast using helical scanning technique with dynamic intravenous contrast injection. Reconstructed coronal and sagittal MPR images reviewed. All images stored on PACS. Automated exposure control was used as a dose optimization technique for this examination. CONTRAST TYPE/DOSE: ??100 mL of Optiray 320 contrast was administered via a left antecubital IV. COMPARISON: ?? None available. ?? LOWER CHEST: There is mild subsegmental atelectasis at the bilateral bases. ??There is no pleural or pericardial effusion. ??The heart size is normal. LIVER: There is mild focal fatty infiltration of the liver in the region of the falciform ligament. ??The remainder of the liver is normal in appearance. GALLBLADDER: The gallbladder is normal in appearance. There is no evidence of cholelithiasis, gallbladder wall thickening, or pericholecystic fat stranding. BILE DUCTS: There is no intrahepatic or extrahepatic ductal dilatation. SPLEEN: The spleen is normal in size. There is no evidence of a focal splenic lesion. PANCREAS: The pancreas is normal in appearance. There is no peripancreatic inflammation or fluid collection. ADRENALS: The bilateral adrenal glands are normal in appearance. KIDNEYS/URINARY TRACT: The kidneys are symmetric in size. ??There is no evidence of a suspicious renal parenchymal mass lesion. ??There is a non-obstructive 1 mm calculus inferior left kidney. ??There is no hydronephrosis. ??The urinary bladder is normal in appearance. GI: The small bowel and colon are normal caliber. ??There is no evidence of bowel obstruction. ??The appendix is normal. ??There is colonic wall thickening and mucosal hyperenhancement involving the mid to distal transverse colon extending to the splenic flexure. ??There is a moderate amount of stool throughout the colon. ??There is no pneumatosis. PERITONEUM: There is no ascites or pneumoperitoneum. There is no mesenteric lymphadenopathy. There is a tiny, fat-containing umbilical hernia. RETROPERITONEUM: There is no retroperitoneal mass or lymphadenopathy. REPRODUCTIVE: The uterus and adnexa are normal in appearance. VASCULATURE: The abdominal aorta is normal in course and caliber. There is no abdominal aortic aneurysm. MUSCULOSKELETAL: There are no acute or aggressive appearing osseous abnormalities. Procedure Note Adrian Batista MD - 06/03/2020 [facility] Imaging Result Name: LORENA DESHPANDE Ordering Phys: JAILYN FOFANA Age: 29 Date of : 1990 Accession Number: [id number] Date of Service: 06/03/2020 Gender: F EXAM DESCRIPTION: CT ABDOMEN PELVIS W CONTRAST REASON FOR STUDY: Upper abdominal pain with radiation into the rightlower quadrant today. TECHNIQUE: CT scan of the abdomen and pelvis performed with intravenousand without oral contrast using helical scanning technique with dynamic intravenous contrast injection. Reconstructed coronal and sagittal MPRimages reviewed. All images stored on PACS. Automated exposure control was used as a dose optimization technique forthis examination. CONTRAST TYPE/DOSE: 100 mL of Optiray 320 contrast was administered viaa left antecubital IV. COMPARISON: None available. LOWER CHEST: There is mild subsegmental atelectasis at the bilateral bases. There is no pleural or pericardial effusion. The heartsize is normal. LIVER: There is mild focal fatty infiltration of the liver in the regionof the falciform ligament. The remainder of the liver is normal inappearance. GALLBLADDER: The gallbladder is normal in appearance. There is no evidenceof cholelithiasis, gallbladder wall thickening, or pericholecystic fatstranding. BILE DUCTS: There is no intrahepatic or extrahepatic ductal dilatation. SPLEEN: The spleen is normal in size. There is no evidence of a focalsplenic lesion. PANCREAS: The pancreas is normal in appearance. There is noperipancreatic inflammation or fluid collection. ADRENALS: The bilateral adrenal glands are normal in appearance. KIDNEYS/URINARY TRACT: The kidneys are symmetric in size. There is no evidence of a suspicious renal parenchymal mass lesion. There is a non-obstructive 1 mm calculus inferior left kidney. There is no hydronephrosis. The urinary bladder is normal in appearance. GI: The small bowel and colon are normal caliber. There is no evidenceof bowel obstruction. The appendix is normal. There is colonic wallthickening and mucosal hyperenhancement involving the mid to distal transversecolon extending to the splenic flexure. There is a moderate amount of stool throughout the colon. There is no pneumatosis. PERITONEUM: There is no ascites or pneumoperitoneum. There is nomesenteric lymphadenopathy. There is a tiny, fat-containing umbilical hernia. RETROPERITONEUM: There is no retroperitoneal mass or lymphadenopathy. REPRODUCTIVE: The uterus and adnexa are normal in appearance. VASCULATURE: The abdominal aorta is normal in course and caliber. There isno abdominal aortic aneurysm. MUSCULOSKELETAL: There are no acute or aggressive appearing osseous abnormalities. IMPRESSION: 1. Colitis involving mid to distal transverse colon extending to thesplenic flexure. This could be infectious, inflammatory, or ischemic inetiology. 2. Moderate amount of colonic stool may reflect constipation. 3. No bowel obstruction. Normal appendix. 4. Non-obstructive 1 mm left lower pole renal calculus. No obstructive uropathy. THIS IS AN ELECTRONICALLY VERIFIED FINAL REPORT 06/03/2020 7:46 PM - Electronically signed by Adrian Batista M.D. AB: Report ID: [id number] Reading Location: [place] [address] Jailyn Fofana MD [facility] CT PROCEDURES Final Result * XR Chest 1 Vw Portable (06/03/2020 4:31 PM CDT) Anatomical Region Laterality Modality Body, Chest N/A Computed Radiogr aphy 06/03/2020 4:48 PM CDT Impressions 06/03/2020 4:49 PM CDT No acute findings. ??CT would be more sensitive if there is high clinical suspicion for pneumomediastinum. Electronically signed by: Jasbir Mesa M.D. Narrative 06/03/2020 4:49 PM CDT EXAMINATION: XR CHEST 1 VIEW. ?? TECHNIQUE: AP chest radiograph. HISTORY: Hematemesis, concern for pneumomediastinum today COMPARISON: 11/03/2018 FINDINGS: Lungs are clear. No pleural effusion or pneumothorax. Heart size is normal. ??No evidence of pneumomediastinum. Procedure Note Jasbir Mesa MD - 06/03/2020 EXAMINATION: XR CHEST 1 VIEW. TECHNIQUE: AP chest radiograph. HISTORY: Hematemesis, concern for pneumomediastinum today COMPARISON: 11/03/2018 FINDINGS: Lungs are clear. No pleural effusion or pneumothorax. Heart size is normal. No evidence of pneumomediastinum. IMPRESSION: No acute findings. CT would be more sensitive if there is high clinical suspicion for pneumomediastinum. Electronically signed by: Jasbir Mesa M.D. Jailyn Fofana MD IMG XR PROCEDURES Final Result * eGFR (06/03/2020 4:07 PM CDT) eGFR 85 mL/min/1.7 3 m2 SASHA BRYAN (MICHAEL) Comment: Interpretive Data Reference Interval Normal ?>/= 90 mL/min/1.73m2 Mildly decreased* ? 60 - 89 mL/min/1.73m2 Mildly to moderately decreased ?45 - 59 mL/min/1.73m2 Moderately to severely decreased ??30 - 44 mL/min/1.73m2 Severely decreased ?15 - 29 mL/min/1.73m2 Kidney Failure ?< 15 ??mL/min/1.73m2 *Relative to young adult level If -Ken[place] multiply value by 1.16. Estimated glomerular filtration rate is determined by the CKD-EPI equation recommended by the National Kidney Foundation (KDIGO 2012 Clinical Practice Guideline for the Evaluation and Management of Chronic Kidney Disease. Kidney Intnl Suppl Nov 2012;3:1). The CKD-EPI equation should not be used for patients with unstable renal function and has not been validated in children and those over 70. Current interpretive data was last reviewed 2016. Blood specimen (specimen) 06/03/2020 4:07 PM CDT 06/03/2020 4:17 PM CDT us Jailyn Fofana MD LAB BLOOD ORDERABLES Fin al Result Performing Organization Address City/[facility]/ZIP Co de Phone Number SASHA BRYAN ([place]) 1 [facility] Department [place] [address] * Manual Differential (06/03/2020 4:07 PM CDT) Differential Auto SASHA BRYAN ([place]) RBC morphology Consistent with RBC Indicies SASHA BRYAN ([place]) Platelet estimate Adequate SASHA BRYAN ([place]) Blood specimen (specimen) 06/03/2020 4:07 PM CDT 06/03/2020 4:17 PM CDT Jailyn Fofaan MD LAB BLOOD ORDERABLES Fin al Result [facility] ([place]) 1 [facility] Department [place] [address] * (ABNORMAL) Differential, auto (06/03/2020 4:07 PM CDT) Neutrophil abs 22.2(H) 1.7 - 6.5 K/cumm [facility] ([place]) Imm gran abs 0.1 0.0 - 0.1 K/cumm [facility] ([place]) Lymphocyte abs 0.9 0.8 - 3.3 K/cumm [facility] ([place]) Monocyte abs 1.5(H) 0.2 - 0.8 K/cumm [facility] ([place]) Eosinophil abs 0.0 0.0 - 0.5 K/cumm [facility] ([place]) Basophil abs 0.0 0.0 - 0.1 K/cumm [facility] ([place]) Neutrophil pct 89.7 % [facility] ([place]) Comment: Interpretive Data Percent cell count reference ranges are not reported, since discordance with absolute values may lead to misinterpretation of CBC data. Current Interpretive Data was last revised on 2018. Imm gran pct 0.6 % [facility] ([place]) Comment: Interpretive Data Percent cell count reference ranges are not reported, since discordance with absolute values may lead to misinterpretation of CBC data. Current Interpretive Data was last revised on 2018. Lymphocyte pct 3.6 % [facility] ([place]) Comment: Interpretive Data Percent cell count reference ranges are not reported, since discordance with absolute values may lead to misinterpretation of CBC data. Current Interpretive Data was last revised on 2018. Monocyte pct 6.0 % [facility] ([place]) Comment: Interpretive Data Percent cell count reference ranges are not reported, since discordance with absolute values may lead to misinterpretation of CBC data. Current Interpretive Data was last revised on 2018. Eosinophil pct 0.0 % [facility] ([place]) Comment: Interpretive Data Percent cell count reference ranges are not reported, since discordance with absolute values may lead to misinterpretation of CBC data. Current Interpretive Data was last revised on 2018. Basophil pct 0.1 % [facility] ([place]) Comment: Interpretive Data Percent cell count reference ranges are not reported, since discordance with absolute values may lead to misinterpretation of CBC data. Current Interpretive Data was last revised on 2018. Blood specimen (specimen) 06/03/2020 4:07 PM CDT 06/03/2020 4:15 PM CDT Jailyn Fofana MD LAB BLOOD ORDERABLES Fin al Result Performing Organization Address [facility] Co de Phone Number SASHA BRYAN ([place]) [address] [facility] [address] * hCG, blood, quantitative (06/03/2020 4:07 PM CDT) hCG, quant <5.0 0.0 - 5.0 IUnits/L SASHA BRYAN ([place]) Comment: Interpretive Data Non- Female premenopausal: < or = 5.0 IUnits/L Men: < 5.0 IUnits/L Weeks of Gestation ? Reference Interval ?? 3 to 6 ? 5.8-31,795 IUnits/L ?? 7 to 10 ? 3,697-186,977 IUnits/L ??12 to 15 ?27,832- 70,791 IUnits/L ??16 to 18 ? 9,040- 58,179 IUnits/L Current Interpretive Data was last revised on 2018. Blood specimen (specimen) 06/03/2020 4:07 PM CDT 06/03/2020 4:17 PM CDT us Jailyn Fofana MD LAB BLOOD ORDERABLES Jesus Alberto hilary Result - Final Performing Organization Address [facility] Co de Phone Number SASHA [facility] ([place]) [address] [facility] [address] * Lipase (06/03/2020 4:07 PM CDT) Lipase 23 10 - 99 Units/L [facility] ([place]) Blood specimen (specimen) 06/03/2020 4:07 PM CDT 06/03/2020 4:15 PM CDT Jailyn Fofana MD LAB BLOOD ORDERABLES Fin al Result [facility] ([place]) 1 [facility] Department [place] [address] * Comprehensive metabolic panel (06/03/2020 4:07 PM CDT) Sodium 138 135 - 145 mmol/L [facility] ([place]) Potassium, pl 3.3 3.3 - 4.9 mmol/L [facility] ([place]) Chloride 97 97 - 110 mmol/L [facility] ([place]) CO2 28 22 - 32 mmol/L [facility] ([place]) Anion gap 14 2 - 15 mmol/L [facility] ([place]) BUN 15 8 - 25 mg/dL [facility] ([place]) Creatinine 0.90 0.60 - 1.10 mg/dL [facility] ([place]) Glucose 149 70 - 199 mg/dL [facility] ([place]) Comment: Interpretive Data Fasting glucose >/= 126 mg/dl is diagnostic for diabetes. ?? Fasting is defined as no caloric intake for at least 8 hours. Fasting glucose between 100 mg/dl to 125 mg/dl is diagnostic of prediabetes. In a patient with classic symptoms of hyperglycemia or hyperglycemic crisis, a random glucose >/= 200 mg/dl is diagnostic for diabetes. In the absence of unequivocal hyperglycemia, results should be confirmed by repeat testing. The classification and Diagnosis of Diabetes Diabetes Care 2017;40 (Suppl. 1):S11. Current interpretive data was last revised 2017. Calcium 10.1 8.5 - 10.3 mg/dL [facility] ([place]) Bilirubin, total 0.7 0.1 - 1.2 mg/dL [facility] ([place]) Protein, pl 7.8 6.5 - 8.5 g/dL [facility] ([place]) Albumin 4.5 3.5 - 5.0 g/dL [facility] ([place]) Alk phos 103 40 - 130 Units/L [facility] ([place]) ALT 12 7 - 45 Units/L [facility] ([place]) AST 22 10 - 45 Units/L [facility] ([place]) Comment: Hemolysis present. ??Results may be affected. Slightly Hemolyzed Specimen Blood specimen (specimen) 06/03/2020 4:07 PM CDT 06/03/2020 4:15 PM CDT us Jailyn Fofana MD LAB BLOOD ORDERABLES Fin al Result [facility] ([place]) 1 [facility] Department [place] [address] * (ABNORMAL) CBC with auto differential (06/03/2020 4:07 PM CDT) WBC 24.7(H) 3.8 - 9.9 K/cumm [facility] ([place]) Hgb 13.3 11.9 - 15.5 g/dL [facility] ([place]) Hct 40.7 35.6 - 45.5 % [facility] ([place]) Plt 303 150 - 400 K/cumm [facility] ([place]) MPV 9.6 9.1 - 12.3 fL [facility] ([place]) RBC 4.45 3.90 - 5.20 M/cumm [facility] ([place]) MCV 91.5 81.3 - 96.4 fL [facility] ([place]) MCH 29.9 27.1 - 33.3 pg [facility] ([place]) MCHC 32.7 32.3 - 35.7 g/dL [facility] ([place]) RDW CV 13.5 11.1 - 14.9 % [facility] ([place]) RDW SD 45.3 35.7 - 48.1 fL [facility] ([place]) NRBC abs 0.00 0.00 - 0.01 K/cumm [facility] ([place]) Blood specimen (specimen) 06/03/2020 4:07 PM CDT 06/03/2020 4:15 PM CDT Jailyn Fofana MD LAB BLOOD ORDERABLES Fin al Result Performing Organization Address [facility] Co de Phone Number SASHA BRYAN ([place]) [address] [facility] [place] [address] * COVID-19 Coronavirus RNA Nasopharyngeal (06/03/2020 3:13 PM CDT) COVID-19 RNA Not Detected ASTRID BRYAN (MICHAEL) Comment: Interpretive Data Testing performed at [facility]. The 2019-Novel Coronavirus Assay (COVID-19) Real Time RT-PCR assay is for in vitro diagnostic use under FDA emergency use authorization only. A negative RT-PCR result does not preclude infection with COVID-19 and should not be used as the sole basis for treatment or other patient management decisions. Additional sample types have been validated according to CLIA regulations. ?? Current Interpretive Data was last revised on 2020. Testing performed by: [facility], [address] [facility] [place] [address] Nasopharyngeal 06/03/2020 3: 13 PM CDT 06/03/2020 6:26 PM CDT Narrative SASHA BRYAN ([place]) - 06/04/2020 2:15 AM CDT ONLY ONE PROP ATTENDANT swab needed for tests Is the patient experiencing any symptoms consistent with COVID (eg. Fever, cough, shortness of breath)?->Yes What is the reason for testing?->Likely to be discharged Jailyn Fofana MD LAB MICROBIOLOGY - GENER AL ORDERABLES Final Result Performing Organization Address [facility]/ZIP Co de Phone Number SASHA BRYAN ([place]) [address] [facility] [address] documented in this encounter Visit Diagnoses Diagnosis Vomiting- Primary Vomiting alone Colitis Other and unspecified noninfectious gastroenteritis and colitis Microscopic hematuria documented in this encounter Administered Medications Inactive Administered Medications - up to 3 most recent administrations Medication Order MAR Action Action Date Dose Rate Site acetaminophen (TYLENOL) tablet 1,000 mg 1,000 mg, oral, Once, On Tue06/03/20 at 1718, For 1 dose Given 06/03/2020 6:07 PM CDT 1,000 mg al & mag hydroxide simethicone-lidocaine oral suspension mixture 40 mL, oral, Once, On Tue06/03/20 at 1718, For 1 dose Given 06/03/2020 6:07 PM CDT 40 mL droperidoL (INAPSINE) injection 1.25 mg 1.25 mg, intravenous, Administer over 5 Minutes, Once, On Tue06/03/20 at 1557, For 1 dose Given 06/03/2020 4:18 PM CDT 1.25 mg famotidine (PEPCID) injection 40 mg 40 mg, intravenous, Administer over 2 Minutes, Once, On Tue06/03/20 at 1557, For 1 dose Given 06/03/2020 4:18 PM CDT 40 mg ioversoL (OPTIRAY 320) intravenous syringe 100 mL 100 mL, intravenous, Once in imaging, contrast, Starting on Tue06/03/20 at 1830, For 1 dose Given 06/03/2020 6:25 PM CDT 100 mL ketorolac (TORADOL) 15 mg/mL injection 15 mg 15 mg, intravenous, Once, On Tue06/03/20 at 1922, For 1 dose, For Adult IV push, administer over 15 seconds, Indications: PainIndications:Pain Given 06/03/2020 7:28 PM CDT 15 mg ondansetron ODT (ZOFRAN-ODT) disintegrating tablet 4 mg 4 mg, oral, Once, On Tue06/03/20 at 1504, For 1 dose, Indications: Nausea, VomitingIndications:Nausea,Vo miting Given 06/03/2020 3:10 PM CDT 4 mg sodium chloride 0.9% bolus 1,000 mL 1,000 mL, intravenous, at 1,000 mL/hr, Administer over 1 Hours, Once, On Tue06/03/20 at 1557, For 1 dose New Bag 06/03/2020 6:07 PM CDT 1,000 mL 1000 mL/hr sodium chloride 0.9% bolus 1,000 mL 1,000 mL, intravenous, at 1,000 mL/hr, Administer over 1 Hours, Once, On Tue06/03/20 at 1557, For 1 dose New Bag 06/03/2020 4:17 PM CDT 1,000 mL 1000 mL/hr documented in this encounter Discontinued Medications Medication Sig Discontinue Reason Start Date End Da te dicyclomine (BENTYL) 20 mg tablet Take 1 tablet (20 mg total) by mouth 2 (two) times a day Reorder 12/19/2019 06/03/2020 documented as of this encounter Active and Recently Administered Medications Times are shown in CDT. Scheduled Medication Order 06/01/2020 06/02/2020 06/03/2020 acetaminophen (TYLENOL) tablet 1,000 mg (COMPLETED) 1,000 mg, oral, Once, On Tue06/03/20 at 1718, For 1 dose 180 (Given - Provid er: Caroline Lyon RN) al & mag hydroxide simethicone-lidocaine oral suspension mixture (COMPLETED) 40 mL, oral, Once, On Tue06/03/20 at 1718, For 1 dose 180 (Given - Provid er: Caroline Lyon RN) droperidoL (INAPSINE) injection 1.25 mg (COMPLETED) 1.25 mg, intravenous, Administer over 5 Minutes, Once, On Tue06/03/20 at 1557, For 1 dose 161 (Given - Provid er: Caroline Lyon RN) famotidine (PEPCID) injection 40 mg (COMPLETED) 40 mg, intravenous, Administer over 2 Minutes, Once, On Tue06/03/20 at 1557, For 1 dose 1618 (Given - Provid er: Caroline Lyon RN) ketorolac (TORADOL) 15 mg/mL injection 15 mg (COMPLETED) 15 mg, intravenous, Once, On Tue06/03/20 at 1922, For 1 dose, For Adult IV push, administer over 15 seconds, Indications: Pain 1927 (Given - Provid er: Moreno Concepcion RN) ondansetron ODT (ZOFRAN-ODT) disintegrating tablet 4 mg (COMPLETED) 4 mg, oral, Once, On Tue06/03/20 at 1504, For 1 dose, Indications: Nausea, Vomiting 1510 (Given - Provid er: Caroline Lyon RN) sodium chloride 0.9% bolus 1,000 mL (COMPLETED) 1,000 mL, intravenous, at 1,000 mL/hr, Administer over 1 Hours, Once, On Tue06/03/20 at 1557, For 1 dose 1807 (New Bag - Prov ider: Caroline Lyno, PITA)2049 (Stopped - Provider: Moreno Concepcion RN) sodium chloride 0.9% bolus 1,000 mL (COMPLETED) 1,000 mL, intravenous, at 1,000 mL/hr, Administer over 1 Hours, Once, On Tue06/03/20 at 1557, For 1 dose 1617 (New Bag - Prov ider: Caroline Lyon RN)1807 (Stopped - Provider: Caroline Lyon, PITA) PRN Medication Order 06/01/2020 06/02/2020 06/03/2020 ioversoL (OPTIRAY 320) intravenous syringe 100 mL (COMPLETED) 100 mL, intravenous, Once in imaging, contrast, Starting on Tue06/03/20 at 1830, For 1 dose 1825 (Given - Provid er: Perla Newton, RT - Comment: [id number]) documented in this encounter Orders Nursing Count Last Ordered Date First Orde red Date NURSING COMMUNICATION 1 06/03/2020 PULSE OXIMETRY - RN 1 06/03/2020 documented in this encounter Additional Health Concerns Infection Onset Date Last Indicated Resolved Time MRSA Comment:Backloaded September 16, 2011 05/28/2011 05/28/201106/28 5:00 AM CDT COVID: Suspected 06/03/2020 06/03/2020 06/05/2020 2:15 AM CDT documented as of this encounter Care Teams Ged Preparation Teacher Relationship Specialty Start Date End Date See Gonsalez MD PCP - General 10/15/18 02/14/21 [place] [id number] [address] [address] Consulting Physician Cardiovascular Disease 11/01/18 [place] [id number] [address] [address] Consulting Physician Cardiovascular Disease 11/06/18 documented as of this encounter
--- OUTSIDE RECORDS SUMMARY | 2024-11-30 00:26 | XMS_ITS | Referral Summary ---
Author Organization [facility] [address] Address [address] [place] [address] Care Team Providers Care Cardiology Clinical Consultant Name Role Phone Zachary Driver MD Unavailable [phone] Jasbir Nielson MD Unavailable [phone] Nikolas Shen MD Primary Care Provi [...] AM CDT): Atypical, enzymes neg, ?h/o of PA in past vs HTN urgency. Cardiology consulted [...] Administration Dates Next Due Influenza, Unspecified 08/27/2020 Social History Tobacco Use Types Packs/Day Years [...] on file Legal Sex Female 1:47 AM OPERATIONS SUPPORT REPRESENTATIVE Gender Identity Not on file Sexual Orientation Not on file Last Filed Vital Signs Vital Sign Reading Time Taken Comments Blood Pressure 156/98 01/17/2024 8:41 AM OPERATIONS SUPPORT REPRESENTATIVE Pulse 94 01/17/2024 8:41 AM OPERATIONS SUPPORT REPRESENTATIVE Temperature 36.4 ??C (97.6 ??F) 01/17/2024 8:41 AM CS T Respiratory Rate 18 01/17/2024 8:41 AM OPERATIONS SUPPORT REPRESENTATIVE Oxygen Saturation 100% 01/17/2024 8:41 AM OPERATIONS SUPPORT REPRESENTATIVE Inhaled Oxygen Concentration - - Weight 94.3 kg (208 lb) 01/17/2024 8:41 AM OPERATIONS SUPPORT REPRESENTATIVE Height 170.2 cm (5' 7 ) 01/17/2024 8:41 AM OPERATIONS SUPPORT REPRESENTATIVE Body Mass Index 32.58 01/17/2024 8:41 AM OPERATIONS SUPPORT REPRESENTATIVE Plan of Treatment Not on file Insurance IDPA Azubu OOS Azubu OOS Advance Directives For more information, please contact: [phone] * Full Code (Latest Code Status on [...] 2:58 PM 07/31/2018 8:31 PM Care Teams Cardiology Clinical Consultant Relationship Specialty Start Date End Date Nikolas Shen MD [address] [place] [address] [address] CORMIER [address] [address] PCP - General Family Medicine 09/15/24 [place] [id number] [address] [address] Consulting Physician Cardiovascular Disease 11/01/18 [place] [id number] [address] [address] Consulting Physician Cardiovascular Disease 11/06/18
--- OUTSIDE RECORDS SUMMARY | 2024-11-30 00:26 | XMS_ITS | Encounter Summary ---
Author Organization [facility] Address [address] [place] [address] Care Team Providers Care Pottery Decorator Name Role Phone Zachary Driver MD Unavailable [phone] Jasbir Nielson MD Unavailable [phone] Miguel Vazquez MD Primary Care Provider Encounter Details Date Type Department Care Team (Late st Contact Info) Description 04/05/2023 Telephone [facility] [address] [place] [address] Fawad Catalan Social History Tobacco Use Types Packs/Day Years [...] staff should administer the PHQ-9) 0 02/16/2021 Comments No Sex and Gender Information Value Date Recorded Sex Assigned at Not on file Legal Sex Female 1:47 AM INSEAMER Gender Identity Not on file Sexual Orientation Not on file documented as of this encounter Miscellaneous Notes * Telephone Encounter - Fawad Catalan - 04/05/2023 3:04 PM CDT Patient called about making an appointment for her ear, [facility] returning [facility] was [facility]. documented in this encounter Plan of Treatment Not on file documented as of this encounter Visit Diagnoses Not on filedocumented in this encounter Care Teams Pottery Decorator Relationship Specialty Start Date End Date Miguel Vazquez MD [address] [place] [address] [facility] [address] [place] [address] PCP - General Family Medicine 04/04/23 09/14/24 [place] [id number] [address] Consulting Physician Cardiovascular Disease 11/01/18 [place] [id number] [address] [address] Consulting Physician Cardiovascular Disease 11/06/18 documented as of this encounter
--- OUTSIDE RECORDS SUMMARY | 2024-11-30 00:26 | XMS_ITS | Encounter Summary ---
Author Organization [facility] Address [address] [place] [address] Care Team Providers Care Gem Setter Name Role Phone Zachary Driver MD Unavailable [phone] Jasbir Nielson MD Unavailable [phone] Reason for Visit * Reason Comments Allergies Encounter Details Date Type Department Care Team (Late st Contact Info) Description 10/11/2022 8:17 AM [facility] - 10/11/2022 9:49 AM [facility] Emergency [facility] Emergency Department [address] [place] [address] Don Cloud MD [address] [place] [address] Allergic reaction, initial encounter (Primary Dx) Discharge Disposition: Discharge [...] on file Legal Sex Female 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 Gender Identity Not on file Sexual Orientation Not on file documented as of this encounter Last Filed Vital Signs Vital Sign Reading Time Taken Comments Blood Pressure 135/93 10/11/2022 8:16 AM NEWSPAPER DELIVERY DRIVER Pulse 75 10/11/2022 8:15 AM NEWSPAPER DELIVERY DRIVER Temperature 36.1 ??C (97 ??F) 10/11/2022 8:16 AM NEWSPAPER DELIVERY DRIVER Respiratory Rate 18 10/11/2022 8:15 AM NEWSPAPER DELIVERY DRIVER Oxygen Saturation 100% 10/11/2022 8:15 AM NEWSPAPER DELIVERY DRIVER Inhaled Oxygen Concentration - - Weight 95.3 kg (210 lb) 10/11/2022 8:15 AM NEWSPAPER DELIVERY DRIVER Height 170.2 cm (5' 7 ) 10/11/2022 8:15 AM NEWSPAPER DELIVERY DRIVER Body Mass Index 32.89 10/11/2022 8:15 AM NEWSPAPER DELIVERY DRIVER documented in this encounter Discharge Instructions * Discharge Instructions* Don Cloud MD - 10/11/2022 9:36 AM NEWSPAPER DELIVERY DRIVER Thank you for the opportunity to care for you today! You were evaluated for and diagnosed with an allergic reaction. You should follow-up with your primary doctor in the next week as needed. Return to the ED for trouble breathing or other concerns. You should take an antihistamine such as cetirizine or loratadine. You may also use the prescribed fluticasone spray. You may also use saline eye drops to help hydrate. We sincerely hope you feel better soon! PAPER DELIVERY DRIVER documented in this encounter Medications at Time of Discharge aspirin 81 mg tablet Take 81 mg by mouth daily. fluticasone propionate (FLONASE) 50 mcg/actuation nasal spray Administer 1 spray into each nostril daily 16 g 10/11/2022 hydroCHLOROthiaz yahir (MICROZIDE) 12.5 mg capsule Take 12.5 mg by mouth daily 12/23/2020 losartan (COZAAR) 25 mg tablet Take 25 mg by mouth daily 12/23/2020 acetaminophen (TYLENOL) 500 mg tablet Take 2 tablets (1,000 mg total) by mouth every 8 (eight) hours as needed for pain for up to 20 doses 40 tablet 06/03/2020 3 venlafaxine XR (EFFEXOR-XR) 75 mg 24 hr capsule Take 75 mg by mouth daily 08/01/2020 3 documented as of this encounter Ordered Prescriptions Prescription Sig Dispense Quantity Refills Last Filled Start Date End Date fluticasone propionate (FLONASE) 50 mcg/actuation nasal spray Administer 1 spray into each nostril daily 16 g 10/11/2022 documented in this encounter Discharge Disposition Disposition Code Departure Means Destination Discharge to home or self care documented in this encounter ED Notes * Don Cloud MD - 10/11/2022 9:21 AM CST HPI Chief Complaint Patient presents with Allergies Patient is a 32-year-old woman with a history of hypertension and obesity who presents with concerns for allergies. Onset several weeks ago. Primarily eye dryness, facial swelling/pain, and nasal congestion. Has tried several antihistamines and eyedrops without significant improvement. Denies fever, chills, chest pain, dyspnea, cough, abdominal pain, nausea, vomiting, or other complaints. Patient History: Patient Active Problem List Diagnosis Date Noted [...] History Social History Narrative Grandpa had an MT in his 60s Review of Systems Review of Systems Constitutional: Negative for chills and fever. HENT: Positive for congestion and facial swelling. Negative for rhinorrhea and sore throat. Eyes: Positive for redness and itching. Negative for visual disturbance. Respiratory: Negative for cough and shortness of breath. Cardiovascular: Negative for chest pain. Gastrointestinal: Negative for abdominal pain, constipation, diarrhea, nausea and vomiting. Genitourinary: Negative for dysuria, frequency and urgency. Musculoskeletal: Negative for myalgias. Skin: Negative for rash. Neurological: Negative for seizures, syncope and headaches. Psychiatric/Behavioral: Negative for confusion. Physical Exam ED Triage Vitals Temp Pulse Resp BP SpO2 10/11/2281510/11/2281410/11/2281410/11/2281510/11/22814 36.1 ??C (97 ??F) 75 18 135/93 100 % Temp src Heart Rate Source Patient Position BP Location FiO2 (%) -- -- -- -- -- Height Height Method Weight Weight Method 10/11/22814 -- 10/11/22814 -- 1.702 m (5' 7 ) 95.3 kg (210 lb) Physical Exam Vitals and nursing note reviewed. Constitutional: General: She is not in acute distress. Appearance: She is not ill-appearing or diaphoretic. HENT: Head: Normocephalic and atraumatic. Nose: Congestion present. Mouth/Throat: Mouth: Mucous membranes are moist. Pharynx: Posterior oropharyngeal erythema present. No oropharyngeal exudate. Eyes: General: No scleral icterus. Right eye: No discharge. Left eye: No discharge. Extraocular Movements: Extraocular movements intact. Conjunctiva/sclera: Conjunctivae normal. Pupils: Pupils are equal, round, and reactive to light. Cardiovascular: Rate and Rhythm: Normal rate and regular rhythm. Pulmonary: Effort: Pulmonary effort is normal. No respiratory distress. Abdominal: General: There is no distension. Musculoskeletal: General: No swelling. Normal range of motion. Cervical back: Normal range of motion. Skin: General: Skin is warm and dry. Findings: No rash. Neurological: General: No focal deficit present. Mental Status: She is alert and oriented to person, place, and time. Mental status is at baseline. Psychiatric: Mood and Affect: Mood normal. Behavior: Behavior normal. MDM Medical Decision Making Differential Diagnosis or Management Options: 32-year-old woman with history of hypertension obesity presents with concerns for allergies. Suspect seasonal allergies. Doubt anaphylaxis. Doubt viral syndrome. Doubt bacterial conjunctivitis. Doubt other emergent condition. Plan: No indication for labs or imaging, fluticasone and anticipatory guidance Final diagnoses: None Don Cloud MD 10/11/22 0949 PAPER DELIVERY DRIVER * Croal Graff RN - 10/11/2022 8:13 AM CST Patient arrives to the ED with complaints of possible allergies x 1 week due to bilateral eye swelling, facial swelling and pain to her eyes like I got mazed . Patient has tried visine and Claritin with no relief. Patient denies SOB or congestion. PAPER DELIVERY DRIVER documented in this encounter Plan of Treatment Not on file documented as of this encounter Visit Diagnoses Diagnosis Allergic reaction, initial encounter- Primary documented in this encounter Care Teams Gem Setter Relationship Specialty [place] [id number] [address] [address] Consulting Physician Cardiovascular Disease 11/01/18 [place] [id number] [address] [address] Consulting Physician Cardiovascular Disease 11/06/18 documented as of this encounter
--- OUTSIDE RECORDS SUMMARY | 2024-11-30 00:26 | XMS_ITS | Encounter Summary ---
Author Organization [facility] Healthcare Address [address] [place] [address] Care Team Providers Care Repairer Veneer Sheet Name Role Phone Zachary Driver MD Unavailable [phone] Jasbir Nielson MD Unavailable [phone] Reason for Referral * Cardiology (Routine) - Closed Specialty Diagnoses / Procedures Referred By Contac t Referred To Contact Diagnoses Palpitations Procedures Event Monitor - Loop 30 Day Jasbir Nielson MD [address] [place] [place] [id number] Phone: tel: fax: [address] [phone] Referral ID Status Reason Start Date Expiration Date Visits Re quested Visits Authorized [id number] Closed 02/16/2021 03/18/2022 1 1 Reason for Visit * Reason Comments Chest Pain Encounter Details Date Type Department Care Team (Late st Contact Info) Description 02/15/2021 10:18 PM CDT - 02/16/2021 11:31 AM CDT Emergency [facility] [address] [place] [address] Gosia Burris MD [address] [place] [address] Kim Mehta MD [address] [place] [address] Joby Arce MD [address] [place] [address] Palpitations (Primary Dx); Acute chest pain; Hypertension, unspecified type Discharge Disposition: Discharge to home or self [...] on file 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 Gender Identity Not on file Sexual Orientation Not on file documented as of this encounter Last Filed Vital Signs Vital Sign Reading Time Taken Comments Blood Pressure 137/84 02/16/2021 11:00 AM CDT Pulse 87 02/16/2021 11:00 AM CDT Temperature 36.6 ??C (97.8 ??F) 02/16/2021 11:00 AM C DT Respiratory Rate 18 02/16/2021 11:00 AM CDT Oxygen Saturation 99% 02/16/2021 11:00 AM CDT Inhaled Oxygen Concentration - - Weight 92.8 kg (204 lb 9.4 oz) 02/16/2021 3:28 A M CDT Height 172.7 cm (5' 8 ) 02/16/2021 2:30 AM CDT Body Mass Index 31.11 02/16/2021 2:30 AM CDT documented in this encounter Discharge Diagnoses Diagnosis Other chest pain - OTHER CHEST PAIN Anxiety disorder, unspecified - ANXIETY DISORDER, UNSPECIFIED Essential (primary) hypertension - ESSENTIAL (PRIMARY) HYPERTENSION Unspecified essential hypertension Irritable bowel syndrome without diarrhea - IRRITABLE BOWEL SYNDROME WITHOUT DIARRHEA Migraine, unspecified, not intractable, without status migrainosus - MIGRAINE, UNSPECIFIED, NOT INTRACTABLE, WITHOUT STATUS MIGRAINOSUS Hyperlipidemia, unspecified - HYPERLIPIDEMIA, UNSPECIFIED Hypokalemia - HYPOKALEMIA Hypopotassemia Palpitations - PALPITATIONS Old myocardial infarction - OLD MYOCARDIAL INFARCTION group home (current) use of non-steroidal anti-inflammatories (nsaid) - INTERMEDIATE (CURRENT) USE OF NON-STEROIDAL ANTI-INFLAMMATORIES (NSAID) group home (current) use of aspirin - INTERMEDIATE (CURRENT) USE OF ASPIRIN Other roasterman (current) drug therapy - OTHER MOTOR VEHICLE REPRESENTATIVE (CURRENT) DRUG THERAPY Family history of ischemic heart disease and other diseases of the circulatory system - FAMILY HISTORY OF ISCHEMIC HEART DISEASE AND OTHER DISEASES OF THE CIRCULATORY SYSTEM documented in this encounter Discharge Summaries * Joby Arce MD - 02/16/2021 9:01 AM CDT Inpatient Discharge Summary BRIEF OVERVIEW Admitting Provider: Kim Mehta MD Discharge Provider: Joby Arce* Primary Care Physician at Discharge: Jenny, Physician [phone] Admission Date: 02/15/2021 Discharge Date: 02/16/2021 Primary Discharge Diagnosis: Principal Problem: Acute chest pain Active Problems: Essential hypertension Anxiety Secondary Discharge Diagnosis: Principal Problem: Acute chest pain Active Problems: Essential hypertension Anxiety Resolved Problems: No resolved hospital problems. DETAILS OF HOSPITAL STAY Presenting Problem/History of Present Illness: Acute chest pain Hospital Course: Anxiety Assessment & Plan Cont effexor, pt had missed med x 4 days after misplacing. Restarted yesterday and symptoms improved with ativan given in ER, will cont Effexor ?? Essential hypertension Assessment & Plan Cont home meds, monitor ?? * Acute chest pain Assessment & Plan Atypical, enzymes neg, ?h/o of CA in past vs HTN urgency. Cardiology consulted from ER, will await their input, can f/u with primary cardiology on outpt basis, cont ASA. UDS + for MJ and Amphetamines. Pt admits to using MJ trying to calm down, but denies Amphetamine use. Informed pt a lot of MJ is laced with amphetamines and best to avoid all rec drug. Given dose of ativan prior to discharge while she restarts effexor, to take home Discharge Details Physical Exam at Discharge: Discharge Condition: stable Pulse: 92 Resp: 18 BP: 134/81 Temp: 36.4 ??C (97.5 ??F) Weight: 92.8 kg (204 lb 9.4 oz) BP 134/81 (BP Location: Right arm, Patient Position: Lying) Pulse 92 Temp 36.4 ??C (97.5 ??F) (Temporal) Resp 18 Ht 172.7 cm (5' 8 ) Wt 92.8 kg (204 lb 9.4 oz) SpO2 99% BMI 31.11 kg/m?? Pertinent Exam Findings at Discharge: NAD Labs at discharge: Recent Results (from the past 24 hour(s)) CBC with auto differential Collection Time: 02/15/21 11:16 PM Result Value Ref Range WBC 12.6 (H) 3.8 - 9.9 K/cumm Hgb 12.4 11.9 - 15.5 g/dL Hct 38.2 35.6 - 45.5 % Plt 351 150 - 400 K/cumm MPV 9.4 9.1 - 12.3 fL RBC 4.19 3.90 - 5.20 M/cumm MCV 91.2 81.3 - 96.4 fL MCH 29.6 27.1 - 33.3 pg MCHC 32.5 32.3 - 35.7 g/dL RDW CV 12.8 11.1 - 14.9 % RDW SD 41.8 35.7 - 48.1 fL NRBC abs 0.00 0.00 - 0.01 K/cumm Comprehensive metabolic panel Collection Time: 02/15/21 11:16 PM Result Value Ref Range Sodium 138 135 - 145 mmol/L Potassium, pl 3.2 (L) 3.3 - 4.9 mmol/L Chloride 98 97 - 110 mmol/L CO2 29 22 - 32 mmol/L Anion gap 11 2 - 15 mmol/L BUN 4 (L) 8 - 25 mg/dL Creatinine 0.76 0.60 - 1.10 mg/dL Glucose 108 70 - 199 mg/dL Calcium 9.5 8.5 - 10.3 mg/dL Bilirubin, total 0.4 0.1 - 1.2 mg/dL Protein, pl 7.6 6.5 - 8.5 g/dL Albumin 4.5 3.5 - 5.0 g/dL Alk phos 83 40 - 130 Units/L ALT 16 7 - 45 Units/L AST 22 10 - 45 Units/L Troponin T high-sensitivity series (baseline, 2hr, 4hr, 6hr) Collection Time: 02/15/21 11:16 PM Result Value Ref Range Trop T hs <6 <=14 ng/L Pro B-type natriuretic peptide Collection Time: 02/15/21 11:16 PM Result Value Ref Range NT-proBNP 40 <=300 pg/mL Differential, auto Collection Time: 02/15/21 11:16 PM Result Value Ref Range Neutrophil abs 9.1 (H) 1.7 - 6.5 K/cumm Imm gran abs 0.0 0.0 - 0.1 K/cumm Lymphocyte abs 2.6 0.8 - 3.3 K/cumm Monocyte abs 0.8 0.2 - 0.8 K/cumm Eosinophil abs 0.1 0.0 - 0.5 K/cumm Basophil abs 0.0 0.0 - 0.1 K/cumm Neutrophil pct 72.0 % Imm gran pct 0.3 % Lymphocyte pct 20.3 % Monocyte pct 6.5 % Eosinophil pct 0.6 % Basophil pct 0.3 % eGFR Collection Time: 02/15/21 11:16 PM Result Value Ref Range GFR 104 mL/min/1.73 m2 Urinalysis reflex to microscopic and culture Urine Collection Time: 02/15/21 11:27 PM Specimen: Urine Result Value Ref Range Color, ur Straw Yellow Clarity, ur Clear Clear Specific gravity, ur 1.006 (L) 1.010 - 1.025 pH, urine 7.0 Protein, ur ql Negative Negative Glucose, ur ql Negative Negative Ketones, ur Negative Negative Bilirubin, ur Negative Negative Blood, ur Negative Negative Urobilinogen, ur <2.0 <2.0 mg/dL Nitrite, ur Negative Negative Leukocyte esterase, ur Negative Negative UA reflex comment Reflex conditions for microscopic UA and culture not met. hCG, urine, qualitative Collection Time: 02/15/21 11:27 PM Result Value Ref Range HCG, ur Negative Negative Troponin T high-sensitivity 2-hour Collection Time: 02/16/21 1:26 AM Result Value Ref Range Trop T hs <6 <=14 ng/L Trop T hs delta 0 ng/L Trop T hs interp Insignificant Troponin T high-sensitivity 4-hour Collection Time: 02/16/21 3:38 AM Result Value Ref Range Trop T hs <6 <=14 ng/L Trop T hs delta 0 ng/L Trop T hs interp Insignificant Troponin T high-sensitivity 6-hour Collection Time: 02/16/21 7:40 AM Result Value Ref Range Trop T hs <6 <=14 ng/L Trop T hs delta See Comment ng/L Trop T hs pct delta See Comment % Trop T hs interp See Comment Drugs of Abuse Screen, Urine without Confirmation Collection Time: 02/16/21 7:59 AM Result Value Ref Range Amphetamine, ur Detected (A) CutOff 500ng/mL Barbiturates, ur Not Detected CutOff 200ng/mL Benzodiazepines, ur Detected (A) CutOff 100ng/mL Cannabinoids, ur Detected (A) CutOff 50 ng/mL Cocaine, ur Not Detected CutOff 150ng/mL Fentanyl, Ur Not Detected Cutoff 1 ng/mL Methadone, ur Not Detected CutOff 300ng/mL Opiates, ur Not Detected CutOff 300ng/mL Oxycodone, ur Not Detected CutOff 100ng/mL Phencyclidine, ur Not Detected CutOff 25 ng/mL Urine Creatinine 354 mg/dL Discharge Disposition: Discharge to home or self care Full Code Discharge Instructions: Discharge Medications: Your medication list CONTINUE taking these medications acetaminophen 500 mg tablet Take 2 tablets (1,000 mg total) by mouth every 8 (eight) hours as needed for pain for up to 20 doses Commonly known as: TYLENOL amLODIPine 10 mg tablet Take 1 tablet (10 mg total) by mouth daily. Commonly known as: NORVASC aspirin 81 mg enteric coated tablet hydroCHLOROthiazide 12.5 mg capsule Commonly known as: MICROZIDE losartan 25 mg tablet Commonly known as: COZAAR venlafaxine XR 75 mg 24 hr capsule Commonly known as: EFFEXOR-XR Outpatient Follow-Up: No future appointments. No follow-up provider specified. Time Spent on Discharge: 25 minutes Voice recognition software [employer] Fluency Direct was used dictate and transcribe this document. Commercial Installer variances may occur. Despite proofreading, typographical errors may occur. Joby Arce MD 02/16/2021 9:01 AM documented in this encounter Discharge Instructions * Discharge Instructions* Rita Ulloa RN - 02/16/2021 10:49 AM CDT THANK YOU for choosing our team to provide your health care. Your HEALTH AND SAFETY are important to us. We hope you feel your care on [facility] was ALWAYS EXCELLENT! Please call [facility] at [phone] if you have any questions regarding your care. Wishing you continued improvement during your recovery. Your Surgical Care Unit Team Dominique Celestin, Rita, Sarah, Raya, Araseli Sands, Liberty, Karen Lazo Kayla, Deanna, Toña, Mario Manzano Judy, Michelle, Beverly and Tatum Key Jocelyn and Margie. documented in this encounter Medications at Time of Discharge amLODIPine (NORVASC) 10 mg tablet Take 1 tablet (10 mg total) by mouth daily 30 tablet 02/16/2021 aspirin 81 mg tablet Take 81 mg by mouth daily. hydroCHLOROthiazi de (MICROZIDE) 12.5 mg capsule Take 12.5 mg by mouth daily 12/23/2020 losartan (COZAAR) 25 mg tablet Take 25 mg by mouth daily 12/23/2020 acetaminophen (TYLENOL) 500 mg tablet Take 2 tablets (1,000 mg total) by mouth every 8 (eight) hours as needed for pain for up to 20 doses 40 tablet 06/03/2020 04/13/2023 venlafaxine XR (EFFEXOR-XR) 75 mg 24 hr capsule Take 75 mg by mouth daily 08/01/2020 04/12/2023 documented as of this encounter Ordered Prescriptions Prescription Sig Dispense Quantity Refills Last Filled Start Date End Date amLODIPine (NORVASC) 10 mg tablet Take 1 tablet (10 mg total) by mouth daily 30 tablet 02/16/2021 documented in this encounter Discharge Disposition Disposition Code Departure Means Destination Discharge to home or self care documented in this encounter Progress Notes * Tavia Fabian RN - 02/16/2021 11:31 AM CDT CM Initial Assessment Interview Note Information Obtained From: Patient (02/16/21 1319) Admission Source: home Impression: chest pain Plan Includes: evaluation Primary Source of Transportation: Health Insurance Coverage: IDPA Prescription Coverage: yes Pharmacy: [facility] in [facility] Primary Care Provider: Jenny Physician Prior to Admission: Primary Caregiver: Self Support System: Spouse/Significant Other Home Care Services: No Durable Medical Equipment: None Living Arrangements: Spouse/significant other, Children Type of Residence: Private residence Steps in home? : Yes, Outside of home Number of steps outside:: 2 steps (02/16/21 0236) Potential discharge needs include: Dialysis: Behavioral Health Services: Patient expects to be Discharged to: Private residence, (02/16/21 1319) Additional Information: Patient lives at home with her and 4 children. She is independent with mobility and adls. No devices used for mobility. Patient will return to home at discharge and will provide transportation. No needs at this time Patient's Identified Problem/Goal Problem: Ensure acute medical needs are met and that patient has a safe discharge plan. Goal: Secure a discharge plan that patient/family are agreeable with and ensure patient has continuum of care. Case management will follow for discharge planning and send referrals as needed. Goals include: To assure continuity of care, To maximize coping skills, To assure patient is in a safe environment and To assure access to community resources. Plan includes: 1. Collaboration with patient, MD, direct care nurse, Vice President Marketing & Development, Nurse Coordinator and other members of the health care team to assure needed interventions completed. 2. Return patient to optimal level of self-care post discharge. 3. Fare Collector will follow for Discharge Planning - interventions as needed 4. Anticipated level of care at discharge 5. Planned Discharge Disposition Based on a comprehensive family assessment, assistance with instrumental activities of daily livingafter discharge will be provided by patient. Tavia Fabian RN documented in this encounter H&P Notes * Joby Arce MD - 02/16/2021 8:41 AM CDT History and Physical Date of Service: 02/16/2021 Primary Care Physician: Jenny, Physician [phone] SUBJECTIVE: Patient is a 30 y.o. female with a PMHx significant for HTN. Presents to the ED with a chief complaint of CP. HPI: This is a pleasant 30 y/o female with a history of HTN and Anxiety presents to ER with midsternal CP. Worse laying on right side, improved laying on back. Also improved with Ativan in ER. Pt reports a h/o of a CA in the past. After reviewing the chart, I see an admission for HTN urgency but not CA.Cardiology was consulted by ER doc and will await their input Past Medical History: Diagnosis Date ??? Anxiety ??? Headache ??? HX OTHER MEDICAL Carpal tunnel syndrome ??? Hypertension ??? IBS (irritable bowel syndrome) ??? Migraine ??? Peripheral neuropathy Past Surgical History: Procedure Laterality Date ??? BREAST BIOPSY ??? CERVICAL BIOPSY W/ LOOP ELECTRODE EXCISION ??? OTHER SURGICAL HISTORY Carpal tunnel syndrome: Vicodin and Tramadol Medications Prior to Admission Medication Sig Dispense Refill Last Dose ??? hydroCHLOROthiazide (MICROZIDE) 12.5 mg capsule Take 12.5 mg by mouth daily ??? losartan (COZAAR) 25 mg tablet Take 25 mg by mouth daily ??? venlafaxine XR (EFFEXOR-XR) 75 mg 24 hr capsule Take 75 mg by mouth daily ??? acetaminophen (TYLENOL) 500 mg tablet Take 2 tablets (1,000 mg total) by mouth every 8 (eight) hours as needed for pain for up to 20 doses 40 tablet 0 Past Week at Unknown time ??? amLODIPine (NORVASC) 10 mg tablet Take 1 tablet (10 mg total) by mouth daily. 30 tablet 0 ??? aspirin 81 mg tablet Take 81 mg by mouth daily. Past Week at Unknown time Allergies Allergen Reactions ??? Prochlorperazine Anaphylaxis Social History Tobacco Use ??? Smoking status: Never Smoker ??? Smokeless tobacco: Never Used Substance Use Topics ??? Alcohol use: Yes Comment: rare Family History Problem Relation Age of Onset ??? Diabetes Other Family history of Diabetes mellitus; ??? Hypertension Other Family history of Hypertension; ??? Hypertension Mother ??? Mitral valve prolapse Mother Review of Systems: Review of Systems Constitutional: Negative. HENT: Negative. Eyes: Negative. Respiratory: Negative. Cardiovascular: Positive for chest pain. Gastrointestinal: Negative. Endocrine: Negative. Genitourinary: Negative. Musculoskeletal: Negative. Skin: Negative. Neurological: Negative. Hematological: Negative. Psychiatric/Behavioral: Negative for self-injury and suicidal ideas. OBJECTIVE: Vitals: Arrival Vitals Temp 02/15/212214 36.5 ??C (97.7 ??F) Pulse 02/15/212216 86 Resp 02/15/212216 24 BP 02/15/212216 (!) 153/105 SpO2 02/15/212216 100 % Temp src 02/15/212214 Temporal Heart Rate Source 02/16/21 0230 Pulse Oximetry Patient Position 02/16/21 0230 Lying BP Location 02/16/21 0230 Right arm FiO2 (%) -- Most Recent : Vitals: 02/16/21 0115 02/16/21 0230 02/16/21 0328 02/16/21 0700 BP: 143/90 118/73 134/81 BP Location: Right arm Right arm Patient Position: Lying Lying Pulse: 104 90 92 Resp: 17 16 18 Temp: 36.2 ??C (97.2 ??F) 36.4 ??C (97.5 ??F) TempSrc: Temporal Temporal SpO2: 94% 98% 99% Weight: 92.8 kg (204 lb 9 oz) 92.8 kg (204 lb 9.4 oz) Height: 172.7 cm (5' 8 ) I/O last 2 completed shifts: In: 250 [P.O.:250] Out: - No intake/output data recorded. Physical Exam: Physical Exam Vitals and nursing note reviewed. Constitutional: Appearance: She is well-developed. HENT: Head: Normocephalic and atraumatic. Eyes: Extraocular Movements: Extraocular movements intact. Pupils: Pupils are equal, round, and reactive to light. Cardiovascular: Rate and Rhythm: Normal rate and regular rhythm. Heart sounds: Normal heart sounds. Pulmonary: Effort: Pulmonary effort is normal. Breath sounds: Normal breath sounds. Abdominal: General: Bowel sounds are normal. Palpations: Abdomen is soft. Musculoskeletal: General: Normal range of motion. Cervical back: Normal range of motion and neck supple. Skin: General: Skin is warm and dry. Neurological: General: No focal deficit present. Mental Status: She is alert. Psychiatric: Mood and Affect: Mood normal. Behavior: Behavior normal. Lab/Radiology/Diagnostic Review: Recent Results (from the past 24 hour(s)) CBC with auto differential Collection Time: 02/15/21 11:16 PM Result Value Ref Range WBC 12.6 (H) 3.8 - 9.9 K/cumm Hgb 12.4 11.9 - 15.5 g/dL Hct 38.2 35.6 - 45.5 % Plt 351 150 - 400 K/cumm MPV 9.4 9.1 - 12.3 fL RBC 4.19 3.90 - 5.20 M/cumm MCV 91.2 81.3 - 96.4 fL MCH 29.6 27.1 - 33.3 pg MCHC 32.5 32.3 - 35.7 g/dL RDW CV 12.8 11.1 - 14.9 % RDW SD 41.8 35.7 - 48.1 fL NRBC abs 0.00 0.00 - 0.01 K/cumm Comprehensive metabolic panel Collection Time: 02/15/21 11:16 PM Result Value Ref Range Sodium 138 135 - 145 mmol/L Potassium, pl 3.2 (L) 3.3 - 4.9 mmol/L Chloride 98 97 - 110 mmol/L CO2 29 22 - 32 mmol/L Anion gap 11 2 - 15 mmol/L BUN 4 (L) 8 - 25 mg/dL Creatinine 0.76 0.60 - 1.10 mg/dL Glucose 108 70 - 199 mg/dL Calcium 9.5 8.5 - 10.3 mg/dL Bilirubin, total 0.4 0.1 - 1.2 mg/dL Protein, pl 7.6 6.5 - 8.5 g/dL Albumin 4.5 3.5 - 5.0 g/dL Alk phos 83 40 - 130 Units/L ALT 16 7 - 45 Units/L AST 22 10 - 45 Units/L Troponin T high-sensitivity series (baseline, 2hr, 4hr, 6hr) Collection Time: 02/15/21 11:16 PM Result Value Ref Range Trop T hs <6 <=14 ng/L Pro B-type natriuretic peptide Collection Time: 02/15/21 11:16 PM Result Value Ref Range NT-proBNP 40 <=300 pg/mL Differential, auto Collection Time: 02/15/21 11:16 PM Result Value Ref Range Neutrophil abs 9.1 (H) 1.7 - 6.5 K/cumm Imm gran abs 0.0 0.0 - 0.1 K/cumm Lymphocyte abs 2.6 0.8 - 3.3 K/cumm Monocyte abs 0.8 0.2 - 0.8 K/cumm Eosinophil abs 0.1 0.0 - 0.5 K/cumm Basophil abs 0.0 0.0 - 0.1 K/cumm Neutrophil pct 72.0 % Imm gran pct 0.3 % Lymphocyte pct 20.3 % Monocyte pct 6.5 % Eosinophil pct 0.6 % Basophil pct 0.3 % eGFR Collection Time: 02/15/21 11:16 PM Result Value Ref Range GFR 104 mL/min/1.73 m2 Urinalysis reflex to microscopic and culture Urine Collection Time: 02/15/21 11:27 PM Specimen: Urine Result Value Ref Range Color, ur Straw Yellow Clarity, ur Clear Clear Specific gravity, ur 1.006 (L) 1.010 - 1.025 pH, urine 7.0 Protein, ur ql Negative Negative Glucose, ur ql Negative Negative Ketones, ur Negative Negative Bilirubin, ur Negative Negative Blood, ur Negative Negative Urobilinogen, ur <2.0 <2.0 mg/dL Nitrite, ur Negative Negative Leukocyte esterase, ur Negative Negative UA reflex comment Reflex conditions for microscopic UA and culture not met. hCG, urine, qualitative Collection Time: 02/15/21 11:27 PM Result Value Ref Range HCG, ur Negative Negative Troponin T high-sensitivity 2-hour Collection Time: 02/16/21 1:26 AM Result Value Ref Range Trop T hs <6 <=14 ng/L Trop T hs delta 0 ng/L Trop T hs interp Insignificant Troponin T high-sensitivity 4-hour Collection Time: 02/16/21 3:38 AM Result Value Ref Range Trop T hs <6 <=14 ng/L Trop T hs delta 0 ng/L Trop T hs interp Insignificant Troponin T high-sensitivity 6-hour Collection Time: 02/16/21 7:40 AM Result Value Ref Range Trop T hs <6 <=14 ng/L Trop T hs delta See Comment ng/L Trop T hs pct delta See Comment % Trop T hs interp See Comment Drugs of Abuse Screen, Urine without Confirmation Collection Time: 02/16/21 7:59 AM Result Value Ref Range Amphetamine, ur Detected (A) CutOff 500ng/mL Barbiturates, ur Not Detected CutOff 200ng/mL Benzodiazepines, ur Detected (A) CutOff 100ng/mL Cannabinoids, ur Detected (A) CutOff 50 ng/mL Cocaine, ur Not Detected CutOff 150ng/mL Fentanyl, Ur Not Detected Cutoff 1 ng/mL Methadone, ur Not Detected CutOff 300ng/mL Opiates, ur Not Detected CutOff 300ng/mL Oxycodone, ur Not Detected CutOff 100ng/mL Phencyclidine, ur Not Detected CutOff 25 ng/mL Urine Creatinine 354 mg/dL XR Chest 1 Vw Portable Result Date: 02/15/2021 Narrative: [facility] Imaging Result Name: LORENA FLORES Ordering Phys: GOSIA BURRIS Age: 30 Date of : 1990 Accession Number: [id number] Date of Service: 02/15/2021 Gender: F EXAM DESCRIPTION: XR CHEST 1 VIEW REASON FOR STUDY: 30 yearold female with a PMHx of HTN, migraines, unstable angina and anxiety who presents to the ED with achief complaint of chest pain that began 2-3 hours ago. Patient reports she has been experiencing upper left chest pain with palpitations and some SOB, Duration: 2-3 hours ago TECHNIQUE: Portable upright AP radiographic view of the chest acquired. COMPARISON: 06/03/2020 LUNGS/PLEURA: No focal consolidation or pneumothorax. No pleural effusion. HEART/MEDIASTINUM: Heart size is stable. Unchanged mediastinal and hilar contours. HARDWARE/LINES/TUBES: None. BONES: No acute findings. OTHER: No other significant finding. No acute cardiopulmonary disease. THIS IS AN ELECTRONICALLY VERIFIED FINAL REPORT 02/15/2021 10:57 PM - Electronically signed by Gabriela Givens M.D. JS: KEVIN D: 10:57 PM Report ID: [id number] Reading Location: [place] [address] ASSESSMENT/PLAN: Principal Problem: Acute chest pain Active Problems: Essential hypertension Anxiety Anxiety Assessment & Plan Cont effexor, pt had missed med x 4 days after misplacing. Restarted yesterday and symptoms improved with ativan given in ER, will cont Effexor Essential hypertension Assessment & Plan Cont home meds, monitor * Acute chest pain Assessment & Plan Atypical, enzymes neg, ?h/o of CA in past vs HTN urgency. Cardiology consulted from ER, will await their input, cont ASA Full Code ESTIMATED LENGTH OF STAY: Less than 2 midnights Voice recognition software [employer] Fluency Direct was used dictate and transcribe this document. Commercial Installer variances may occur. Despite proofreading, typographical errors may occur. Joby Arce MD 02/16/2021 8:41 AM documented in this encounter Consult Notes * Jasbir Nielson MD - 02/16/2021 9:50 AM CDTAssociated Order(s): IP CONSULT TO CARDIOLOGY Images from the original note were not included. Cardiology Consultation note Admit date: 02/15/2021 Chief Complaint: Chest pain History of Present Illness: Lorena Flores is a 30 y.o. 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 Patient reported the pain was in the upperleft part of her chest and associated with palpitations and some SOB. 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 She has palpitations when she is upset or stressed out and that is when she also has some chest pressure. Per chart review, patient had a hospitalization in October of 2018 for unstable angina with EKG changes. Cardiac enzymes were normal. Patient did not want a cardiac cath at the time and opted for anexercise stress echo. Patient did have exercise induced chest pain but had no EKG or echocardiographic evidence of ischemia. In the ED, initial troponin T hs was negative followed by 2 insignificant troponin T deltas. Potassium 3.2. WBC count 12.6. CXR with no acute findings. EKG showed diffuse ST depression as per previous EKG in October 2018. No real change there. Past Medical History: Diagnosis Date ??? Anxiety ??? Headache ??? HX OTHER MEDICAL Carpal tunnel syndrome ??? Hypertension ??? IBS (irritable bowel syndrome) ??? Migraine ??? Peripheral neuropathy Past Surgical History: Procedure Laterality Date ??? BREAST BIOPSY ??? CERVICAL BIOPSY W/ LOOP ELECTRODE EXCISION ??? OTHER SURGICAL HISTORY Carpal tunnel syndrome: Vicodin and Tramadol Allergies Allergen Reactions ??? Prochlorperazine Anaphylaxis Patient Vitals for the past 24 hrs: BP Temp Temp src Pulse Resp SpO2 Height Weight 02/16/21 0700 134/81 36.4 ??C (97.5 ??F) Temporal 92 18 99 % -- -- 02/16/21 0328 -- -- -- -- -- -- -- 92.8 kg (204 lb 9.4 oz) 02/16/21 0230 118/73 36.2 ??C (97.2 ??F) Temporal 90 16 98 % 172.7 cm (5' 8 ) 92.8 kg (204 lb 9 oz) 02/16/21 0115 143/90 -- -- 104 17 94 % -- -- 02/16/21 0030 135/93 -- -- 89 20 100 % -- -- 02/16/21 0015 137/87 -- -- 87 20 100 % -- -- 02/15/21 2217 (!) 153/105 -- -- 86 24 100 % -- -- 02/15/215 -- 36.5 ??C (97.7 ??F) Temporal -- -- -- 172.7 cm (5' 8 ) 89.8 kg (198 lb) Intake/Output Summary (Last 24 hours) at 02/16/2021 0950 Last data filed at 02/16/2021 0925 Gross per 24 hour Intake 368 ml Output -- Net 368 ml Wt Readings from Last 3 Encounters: 02/16/21 92.8 kg (204 lb 9.4 oz) 12/19/19 80.7 kg (178 lb) 11/07/18 79.4 kg (175 lb) Physical Exam: General: Well developed, well nourished, in no acute distress, oriented to person, place, and time. Skin: Warm and dry Head: Normocephalic, oral mucosa and conjunctivae normal Neck: No thyromegaly or bruits. Carotid pulses 2+ Lungs: Clear to auscultation and percussion. Respirations unlabored Cardiac: PMI and JVP normal, S1 and S2 normal, no murmur, no gallop or rub Abd: Soft, nontender, BS active, no hepatosplenomegaly or masses, no abdominal bruit or enlarged aortic pulsation Extremities: No clubbing, cyanosis. No edema. Femoral pulses 2+. Pedal pulses 2+ Musculoskeletal: Muscle strength normal. No scoliosis. Neurologic: Oriented to person, place, and time. Mood not depressed. Review of System: Constitutional: Negative for fever, chills, malaise/fatigue, and diaphoresis. Psychiatric: Negative for depression and anxiety. Skin: Negative for rash and itching. HENT: Negative for headaches, lightheadedness, and congestion. Negative for vertigo. Eyes: Negative for blurred vision and itching. Cardiovascular: Negative for chest pain, Negative for palpitations and syncope. Respiratory: Negative for cough and sputum production. Negative for shortness of breath. Gastrointestinal: Negative for nausea, vomiting, abdominal pain and diarrhea. Musculoskeletal: Negative for muscle weakness, extremity redness or swelling. Neurological: Negative for dizziness, focal weakness, tremors, and loss of consciousness. Family History Problem Relation Age of Onset ??? Diabetes Other Family history of Diabetes mellitus; ??? Hypertension Other Family history of Hypertension; ??? Hypertension Mother ??? Mitral valve prolapse Mother Social History Socioeconomic History ??? Marital status: Spouse name: None ??? Number of children: None ??? Years of education: None ??? Highest education level: None Occupational History ??? None Tobacco Use ??? Smoking status: Never Smoker ??? Smokeless tobacco: Never Used Substance and Sexual Activity ??? Alcohol use: Yes Comment: rare ??? Drug use: No ??? Sexual activity: Defer Other Topics Concern ??? None Social History Narrative Grandpa had an CA in his 60s Social Determinants of Health Financial Resource Strain: ??? Difficulty of Paying Living Expenses: Food Insecurity: ??? Worried About Running Out of Food in the Last Year: ??? Ran Out of Food in the Last Year: Transportation Needs: ??? Lack of Transportation (Medical): ??? Lack of Transportation (Non-Medical): Physical Activity: ??? Days of Exercise per Week: ??? Minutes of Exercise per Session: Stress: ??? Feeling of Stress : Social Connections: ??? Frequency of Communication with Friends and Family: ??? Frequency of Social Gatherings with Friends and Family: ??? Attends Taoist Services: ??? Active Member of Clubs or Organizations: ??? Attends Club or Organization Meetings: ??? Marital Status: Intimate Partner Violence: ??? Fear of Current or Ex-Partner: ??? Emotionally Abused: ??? Physically Abused: ??? Sexually Abused: Prior to Admission medications Medication Sig Start Date End Date Taking? Authorizing Provider acetaminophen (TYLENOL) 500 mg tablet Take 2 tablets (1,000 mg total) by mouth every 8 (eight) hours as needed for pain for up to 20 doses 06/03/20 Jailyn Lugo MD amLODIPine (NORVASC) 10 mg tablet Take 1 tablet (10 mg total) by mouth daily. 08/03/18 09/02/18 Adri Fletcher MD aspirin 81 mg tablet Take 81 mg by mouth daily. ProviderEsther MD dicyclomine (BENTYL) 20 mg tablet Take 1 tablet (20 mg total) by mouth 2 (two) times a day as needed (Crampy abdominal pain) for up to 7 days 06/03/20 06/10/20 Jailyn Lugo MD docusate sodium (COLACE) 100 mg capsule Take 1 capsule (100 mg total) by mouth every 12 (twelve) hours 06/03/20 Jailyn Lugo MD ibuprofen (ADVIL,MOTRIN) 600 mg tablet Take 1 tablet (600 mg total) by mouth every 6 (six) hours asneeded for pain for up to 30 doses 06/03/20 Jailyn Lugo MD pregabalin (LYRICA) 50 mg capsule Take 1 capsule (50 mg total) by mouth 3 (three) times a day. 11/01/18 12/31/18 Laith Busch MD topiramate (TOPAMAX) 25 mg tablet Take 2 tablets (50 mg total) by mouth 2 (two) times a day. 08/02/1810 Adri Fletcher MD traMADol (ULTRAM) 50 mg tablet Take 1 tablet (50 mg total) by mouth every 6 (six) hours as needed for pain. 07/30/18 Gosia Burris MD ondansetron ODT (ZOFRAN-ODT) 4 mg disintegrating tablet Take 1 tablet (4 mg total) by mouth every 8(eight) hours as needed for nausea or vomiting 06/03/20 02/16/21 Jailyn Lugo MD Recent Labs Lab Units 02/15/21 2316 SODIUM mmol/L 138 POTASSIUM PLASMA mmol/L 3.2* CHLORIDE mmol/L 98 CO2 mmol/L 29 BUN SERUM mg/dL 4* CREATININE mg/dL 0.76 QML-SCE-CRCIBZI mL/min/1.73 m2 104 GLUCOSE mg/dL 108 CALCIUM mg/dL 9.5 ALBUMIN g/dL 4.5 Recent Labs Lab Units 02/15/21 2316 ALK PHOS Units/L 83 BILIRUBIN TOTAL mg/dL 0.4 TOTAL PROTEIN g/dL 7.6 ALT Units/L 16 AST Units/L 22 Recent Labs Lab Units 02/15/21 2316 WBC K/cumm 12.6* HEMOGLOBIN g/dL 12.4 HEMATOCRIT % 38.2 PLATELETS K/cumm 351 Lab Results Component Value Date TSH 1.42 10/31/2018 Lab Results Component Value Date CHOL 118 10/31/2018 TRIG 83 10/31/2018 HDL 29 (L) 10/31/2018 LDLCALC 72 10/31/2018 Lab Results Lab Value Date/Time TROPONINT <0.01 11/04/2018 1052 TROPONINT <0.01 11/04/2018 0649 TROPONINT <0.01 11/03/2018 2203 TROPONINT <0.01 10/16/2018 0119 TROPONINT <0.01 07/31/2018 1036 TROPONINT <0.01 10/29/2015 0029 Results for orders placed or performed during the hospital encounter of 11/03/18 ECG 12 lead Result Value Ref Range Patient age 28 years Interpretation Text SINUS RHYTHMSEPTAL MYOCARDIAL INFARCTIONABNORMAL ECGPREVIOUS TRACIN10/16/2018 17.02compared to previous tracingrate is slowerST/T changes now less prominent. Ventricular Rate EKG/Min 68 /min P Wave Duration 126 ms QRS-Interval (MSEC) 85 ms W[place]-Interval (MSEC) 158 ms QT Interval 389 ms QTc 403 ms QTC Interval ms P [place] 55 deg QRS [place] 12 deg T [place] 26 deg Radiology Testing: XR Chest 1 Vw Portable: No acute cardiopulmonary disease. Cardiology Testing: ProBNP: Results for LORENA FLORES ( ) as of 02/16/2021 07:43 Ref. Range 02/15/2021 23:16 NT-proBNP Latest Ref Range: <=300 pg/mL 40 EK02/15/2021 Echo Exercise Stress Test: 11/06/2018 Conclusions: Adequate stress test in regards to heart rate. No definite ischemia on stress EKG. Exercise induced chest pain. No Echocardiographic evidence of ischemia. Echocardiogram: 10/30/2018 Conclusions: Technically difficult study with limited views. Normal 2D/Doppler-echocardiographic study with normal left ventricular function and no significant valvular abnormalities. Impression: 1. Somewhat atypical nonexertional left upper chest pain with insignificant delta troponins. EKG with persistent diffuse ST depression unchanged from the ones in October 2018. 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 She would like to discuss this with her security system engineer Dr. Driver. 2. Palpitations, possibly related to anxiety/stress. 3. Hypokalemia at 3.2. 4. Dyslipidemia with low HDL in the past. Plan: 1. Follow-up with Dr. Driver in 2-3 weeks and p.r.n.. 2. Thirty day cardiac monitoring on discharge. 3. Replace potassium. CC: No, Physician Joby Arce* documented in this encounter Nursing Notes * Miguel Kennedy RN - 02/16/2021 8:17 AM CDT Py states that anxiety med helped but anxiety is returning and would like something for it, telemetry was placed on pt. documented in this encounter ED Notes * Gosia Burris MD - 02/15/2021 10:31 PM CDT HPI Chief Complaint Patient presents with ??? Chest Pain 10:26 PM 02/15/2021 Lorena Flores, non-smoker, is a 30 year old female with a PMHx of HTN, migraines, unstable angina and anxiety who presents to the ED with a chief complaint of chest pain that began 2-3 hours ago. Patient reports she has been experiencing upper left chest pain with palpitations and some SOB, endorses she believes her symptoms are caused by anxiety. Endorses attempting to calm her anxiety at home without relief. 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 Patient reports a prior MIwithout ischemia, notes she did not have a cardiac catheterization at that time though other imaging done was negative. LMP was normal Denies fever, chills, leg swelling, nausea, vomiting or diarrhea. 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 Acute chest pain ??? Unstable angina (CMS/HCC) 11/04/2018 ??? Secondary hypertension 11/04/2018 ??? Idiopathic peripheral neuropathy 11/04/2018 ??? History of migraine headaches 11/04/2018 ??? Altered mental status ??? Hypertensive urgency 10/16/2018 ??? Hypokalemia Past Medical History: Diagnosis Date ??? Anxiety ??? Headache ??? HX OTHER MEDICAL Carpal tunnel syndrome ??? Hypertension ??? IBS (irritable bowel syndrome) ??? Migraine ??? Peripheral neuropathy Past Surgical History: Procedure Laterality Date ??? BREAST BIOPSY ??? CERVICAL BIOPSY W/ LOOP ELECTRODE EXCISION ??? OTHER SURGICAL HISTORY Carpal tunnel syndrome: Vicodin and Tramadol Family History Problem Relation Age of Onset ??? Diabetes Other Family history of Diabetes mellitus; ??? Hypertension Other Family history of Hypertension; ??? Hypertension Mother ??? Mitral valve prolapse Mother Social History Tobacco Use ??? Smoking status: Never Smoker ??? Smokeless tobacco: Never Used Substance Use Topics ??? Alcohol use: Yes Comment: rare ??? Drug use: No Social History Social History Narrative Grandartur had an CA in his 60s Review of Systems Review of Systems Constitutional: Negative for chills and fever. HENT: Negative for congestion and sore throat. Eyes: Negative for pain and visual disturbance. Respiratory: Positive for shortness of breath. Negative for cough and wheezing. Cardiovascular: Positive for chest pain and palpitations. Negative for leg swelling. Gastrointestinal: Negative for abdominal pain, diarrhea, nausea and vomiting. Genitourinary: Negative for difficulty urinating, dysuria and frequency. Neurological: Negative for weakness and headaches. Psychiatric/Behavioral: The patient is nervous/anxious. All other systems reviewed and are negative. Physical Exam ED Triage Vitals Temp Pulse Resp BP SpO2 02/15/21221402/15/21221602/15/21221602/15/21221602/15/212216 36.5 ??C (97.7 ??F) 86 24 (!) 153/105 100 % Temp src Heart Rate Source Patient Position BP Location FiO2 (%) 02/15/212214 -- -- -- -- Temporal Physical Exam Labs Reviewed URINALYSIS AND REFLEX TO MICROSCOPIC AND CULTURE - Abnormal Result Value Color, ur Straw Clarity, ur Clear Specific gravity, ur 1.006 (*) pH, urine 7.0 Protein, ur ql Negative Glucose, ur ql Negative Ketones, ur Negative Bilirubin, ur Negative Blood, ur Negative Urobilinogen, ur <2.0 Nitrite, ur Negative Leukocyte esterase, ur Negative UA reflex comment Value: Reflex conditions for microscopic UA and culture not met. Narrative: Urine pH is affected by diet, medications, systemic acid-base disturbances, and renal tubular function. pH may affect urinary stone formation. For example, urine pH below 6.0 may help reduce the tendency for calcium phosphate stones and pH greater than 6.0 may reduce the tendency for uric acid stone formation. Source: [employer].Last revised 12-08-2017 CBC WITH AUTO DIFFERENTIAL - Abnormal WBC 12.6 (*) Hgb 12.4 Hct 38.2 Plt 351 MPV 9.4 RBC 4.19 MCV 91.2 MCH 29.6 MCHC 32.5 RDW CV 12.8 RDW SD 41.8 NRBC abs 0.00 COMPREHENSIVE METABOLIC PANEL - Abnormal Sodium 138 Potassium, pl 3.2 (*) Chloride 98 CO2 29 Anion gap 11 BUN 4 (*) Creatinine 0.76 Glucose 108 Calcium 9.5 Bilirubin, total 0.4 Protein, pl 7.6 Albumin 4.5 Alk phos 83 ALT 16 AST 22 DIFFERENTIAL AUTO - Abnormal Neutrophil abs 9.1 (*) Imm gran abs 0.0 Lymphocyte abs 2.6 Monocyte abs 0.8 Eosinophil abs 0.1 Basophil abs 0.0 Neutrophil pct 72.0 Imm gran pct 0.3 Lymphocyte pct 20.3 Monocyte pct 6.5 Eosinophil pct 0.6 Basophil pct 0.3 TROPONIN T HIGH-SENSITIVITY SERIES (BASELINE, 2HR, 4HR, 6HR) Trop T hs <6 PRO B-TYPE NATRIURETIC PEPTIDE NT-proBNP 40 HCG, URINE, QUALITATIVE HCG, ur Negative EGFR GFR 104 TROPONIN T HIGH-SENSITIVITY 2-HOUR TROPONIN T HIGH-SENSITIVITY 4-HR TROPONIN T HIGH-SENSITIVITY 6-HOUR DRUGS OF ABUSE SCREEN, URINE WITHOUT CONFIRMATION XR Chest 1 Vw Portable Final Result BP 135/93 Pulse 89 Temp 36.5 ??C (97.7 ??F) (Temporal) Resp 20 Ht 172.7 cm (5' 8 ) Wt 89.8 kg (198 lb) SpO2 100% BMI 30.11 kg/m?? Procedures MDM MDM Final diagnoses: Acute chest pain Hypertension, unspecified type ATTESTATION STATEMENT IRossy, scribed for Gosia Burris MD in the doctor's presence. I electronically signed this note 1:19 AM on 02/16/2021. I, Gosia Burris, have personally performed the services described in the documentation , reviewed the documentation, as recorded by the scribe in my presence, and it accurately and completely records my words and actions. 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 documented in this encounter Miscellaneous Notes * Assessment & Plan Note - Joby Arce MD - 02/16/2021 8:40 AM CDTAssociated Problem(s): Anxiety Cont effexor, pt had missed med x 4 days after misplacing. Restarted yesterday and symptoms improved with ativan given in ER, will cont Effexor * Assessment & Plan Note - Joby Arce MD - 02/16/2021 8:39 AM CDTAssociated Problem(s): Essential hypertension Cont home meds, monitor * Assessment & Plan Note - Joby Arce MD - 02/16/2021 8:38 AM CDTAssociated Problem(s): Acute chest pain Atypical, enzymes neg, ?h/o of CA in past vs HTN urgency. Cardiology consulted from ER, will await their input, cont ASA * Plan of Care - Raya Ng RN - 02/16/2021 8:06 AM CDT Problem: Health Behavior: Goal: Understanding of discharge needs will improve Outcome: Progressing Goals: Clinical Goals for the Shift: decreased anxiety and chest pain. Summary: had some difficulty sleeping, but after taking tylenol and vistaril, did sleep for a few hours. No further c/o chest pain this am. Vs stable. Urine sample obtained this am and sent to lab. documented in this encounter Plan of Treatment Scheduled Orders Name Type Priority Associated Diagnoses Orde r Schedule Event Monitor - Loop 30 Day Cardiac Services Routine Palpitations Expected: 02/16/2021, Expires: 02/16/2022 documented as of this encounter Procedures Procedure Name Priority Date/Time Associated Diagnosis Comments DRUGS OF ABUSE SCREEN, URINE WITHOUT CONFIRMATION Timed 02/16/2021 7:59 AM CDT TROPONIN T HIGH-SENSITIVITY 6-HOUR Timed 02/16/2021 7:40 AM CDT TROPONIN T HIGH-SENSITIVITY 4-HR Timed 02/16/2021 3:38 AM CDT TROPONIN T HIGH-SENSITIVITY 2-HOUR Timed 02/16/2021 1:26 AM CDT URINALYSIS AND REFLEX TO MICROSCOPIC AND CULTURE STAT 02/15/2021 11:27 PM CDT HCG, URINE, QUALITATIVE STAT 02/15/2021 11:27 PM CDT TROPONIN T HIGH-SENSITIVITY SERIES (BASELINE, 2HR, 4HR, 6HR) STAT 02/15/2021 11:16 PM CDT EGFR STAT 02/15/2021 11:16 PM CDT DIFFERENTIAL AUTO STAT 02/15/2021 11: 16 PM CDT PRO B-TYPE NATRIURETIC PEPTIDE STAT 02/15/2021 11:16 PM CDT CBC WITH AUTO DIFFERENTIAL STAT 02/15/2021 11:16 PM CDT COMPREHENSIVE METABOLIC PANEL STAT 02/15/2021 11:16 PM CDT XR CHEST 1 VIEW ED 02/15/2021 10:52 PM CDT ECG 12-LEAD STAT 02/15/2021 10:10 PM CDT documented in this encounter Results * (ABNORMAL) Drugs of Abuse Screen, Urine without Confirmation (02/16/2021 7:59 AM CDT) [facility] Amphetamine, ur Detected(A) CutOff 500ng/mL [facility] (MICHAEL) Comment: Interpretive Data - Amphetamines: ??Samples containing greater than 500 ng/mL d-methamphetamine ??or other cross-reacting amphetamine compounds are reported as positive. ??Amphetamine immunoassays are subject to significant false positive rates due to cross-reactivity of non-amphetamine drugs. Current Interpretive Data was last reviewed 2019. Barbiturates, ur Not Detected CutOff 200ng/mL [facility] (MICHAEL) Comment: Interpretive Data - Barbiturates: ??Samples containing greater than 200 ng/mL secobarbital or other cross-reacting barbiturate compounds are reported as positive. ??False positive and false negative results are possible. Current Interpretive Data was last reviewed 2019. Benzodiazepines, ur Detected(A) CutOff 100ng/mL [facility] (MICHAEL) Comment: Interpretive Data - Benzodiazepines: ??Samples containing greater than 100 ng/mL nordiazepam or other cross-reacting compounds are reported as positive. ?? False positive and false negative results are possible. ?? Current Interpretive Data was last reviewed 2019. Cannabinoids, ur Detected(A) CutOff 50 ng/mL [facility] (MICHAEL) Comment: Interpretive Data - Cannabinoids: ??Samples containing greater than 50 ng/mL delta-9 THC -COOH or other cross-reacting compounds are reported as positive. ??False positive and false negative results are possible. ?? Current Interpretive Data was last reviewed 2019. Cocaine, ur Not Detected CutOff 150ng/mL [facility] (MICHAEL) Comment: Interpretive Data - Cocaine: ??Samples containing greater than 150 ng/mL benzoylecgonine or other cross-reacting compounds are reported as positive. False positive and false negative results are possible. Current Interpretive Data was last reviewed 2019. Fentanyl, Ur Not Detected Cutoff 1 ng/mL [facility] (MICHAEL) Comment: Interpretive Data - Fentanyls: ??Samples containing greater than 1 ng/mL fentanyl or other cross-reacting fentanyl compounds are reported as detected. ??False positive and false negative results are possible. Current Interpretive Data was last reviewed 2019. Methadone, ur Not Detected CutOff 300ng/mL [facility] (MICHAEL) Comment: Interpretive Data - Methadone: ??Samples containing greater than 300 ng/mL d,l-methadone or other cross-reacting compounds are reported as positive. ??False positive and false negative results are possible. Current Interpretive Data was last reviewed 2019. Opiates, ur Not Detected CutOff 300ng/mL [facility] (MICHAEL) Comment: Interpretive Data - Opiates: ??Samples containing greater than 300 ng/mL morphine or other cross-reacting compounds are reported as positive. ??False positive and false negative results are possible. Current Interpretive Data was last reviewed 2019. Oxycodone, ur Not Detected CutOff 100ng/mL [facility] (MICHAEL) Comment: Interpretive Data - Oxycodone: ??Samples containing greater than 100 ng/mL oxycodone or other cross-reacting compounds are reported as positive. ??False positive and false negative results are possible. ?? Current Interpretive Data was last reviewed 2019. Phencyclidine, ur Not Detected CutOff 25 ng/mL [facility] (MICHAEL) Comment: Interpretive Data - Phencyclidine: ??Samples containing greater than 25 ng/mL phencyclidine or other cross-reacting compounds are reported as positive. ??False positive and false negative results are possible. ?? Current Interpretive Data was last reviewed 2019. Urine Creatinine 354 mg/dL [facility] (MICHAEL) Comment: Interpretive Data Urine Creatinine: < 10 mg/dL is extremely dilute = or > 10 but < 20 mg/dL is dilute = or > 20 mg/dL is normal Current Interpretive Data was last revised on 2018. Urine 02/16/2021 7:59 AM CDT 02/16/2021 8:17 AM CDT Narrative [facility] (MICHAEL) - 02/16/2021 8:40 AM CDT Drug of Abuse screening is performed by immunoassay for medical purposes only. ??This is not to be used for Pain Management purposes. us Gosia Burris MD LAB URINE ORDERABLES Final Result [facility] (MICHAEL) [address] [facility] Department [place] [address] * Troponin T high-sensitivity 6-hour (02/16/2021 7:40 AM CDT) Trop T hs <6 <=14 ng/L [facility] (ALGER) Comment: Interpretive Data For further hscTnT resources including the diagnostic algorithm and an aid in interpretation, copy and paste this link: https://nrl.[email or web address]/show/[email or web address] Current Interpretive Data last revised 2020. Trop T hs delta See Comment ng/L [facility] (ALGER) Comment:Inappropriate collec tion time to report a delta. Trop T hs pct delta See Comment % [facility] (ALGER) Comment:Inappropriate collec tion time to report a delta. Trop T hs interp See Comment [facility] (ALGER) Comment:Inappropriate collec tion time to report a delta. Blood specimen (specimen) 02/16/2021 7:40 AM CDT 02/16/2021 7:43 AM CDT Gosia Burris MD LAB BLOOD ORDERABLES Final Result Performing Organization Address [facility] de Phone Number [facility] (ALGER) [address] [facility] [place] [address] * Troponin T high-sensitivity 4-hour (02/16/2021 3:38 AM CDT) Trop T hs <6 <=14 ng/L [facility] (ALGER) Comment: Interpretive Data For further hscTnT resources including the diagnostic algorithm and an aid in interpretation, copy and paste this link: https://nrl.[email or web address]/show/hsTrop Current Interpretive Data last revised 2020. Trop T hs delta 0 ng/L [facility] (ALGER) Trop T hs interp Insignificant [facility] (ALGER) Blood specimen (specimen) 02/16/2021 3:38 AM CDT 02/16/2021 4:12 AM CDT Gosia Burris MD LAB BLOOD ORDERABLES Final Result Performing Organization Address City/[facility]/ZIP Co de Phone Number [facility] (ALGER) [address] [facility] [place] [address] * Troponin T high-sensitivity 2-hour (02/16/2021 1:26 AM CDT) Trop T hs <6 <=14 ng/L [facility] (MICHAEL) Comment: Interpretive Data For further hscTnT resources including the diagnostic algorithm and an aid in interpretation, copy and paste this link: https://nrl.testcatalog.org/show/hsTrop Current Interpretive Data last revised 2020. Trop T hs delta 0 ng/L [facility] (MICHAEL) Trop T hs interp Insignificant [facility] (MICHAEL) Blood specimen (specimen) 02/16/2021 1:26 AM CDT 02/16/2021 1:46 AM CDT Gosia Burris MD LAB BLOOD ORDERABLES Final Result [facility] (MICHAEL) [address] [facility] [place] [address] * hCG, urine, qualitative (02/15/2021 11:27 PM CDT) Pathologist [facility] [place] HCG, ur Negative Negative [facility] (MICHAEL) Urine 02/15/2021 11:2 7 PM CDT 02/15/2021 11:32 PM CDT Gosia Burris MD LAB URINE ORDERABLES Final Result [facility] (MICHAEL) [address] [facility] Department [email or web address] [place] [address] * (ABNORMAL) Urinalysis reflex to microscopic and culture Urine (02/15/2021 11:27 PM CDT) Color, ur Straw Yellow [facility] (MICHAEL) Clarity, ur Clear Clear [facility] (MICHAEL) Specific gravity, ur 1.006(L) 1.010 - 1.025 [facility] ([facility]EL) pH, urine 7.0 [facility] ([facility]EL) Protein, ur ql Negative Negative [facility] ([facility]EL) Glucose, ur ql Negative Negative [facility] (MICHAEL) Ketones, ur Negative Negative [facility] A (MICHAEL) Bilirubin, ur Negative Negative [facility] (MICHAEL) Blood, ur Negative Negative [facility] (MICHAEL) Urobilinogen, ur <2.0 <2.0 mg/dL [facility] (MIC[facility]EL) Nitrite, ur Negative Negative IT[facility]ONER A (MICHAEL) Leukocyte esterase, ur Negative Negative [facility] (MICHAEL) UA reflex comment Reflex conditions for microscopic UA and culture not met. [facility] (MICHAEL) Urine 02/15/2021 11:2 7 PM CDT 02/15/2021 11:31 PM CDT Narrative [facility] (MICHAEL) - 02/15/2021 11:37 PM CDT ?? Urine pH is affected by diet, medications, systemic acid-base disturbances, and renal tubular function. ??pH may affect urinary stone formation. ??For example, urine pH below 6.0 may help reduce the tendency for calcium phosphate stones and pH greater than 6.0 may reduce the tendency for uric acid stone formation. Source: [facility] [email or web address]. Last revised 12-08-2017 us Gosia Burris MD LAB MICROBIOLOGY - GENERAL ORDERABLES Final Result [facility] (MICHAEL) [address] [facility] Department [place] [address] * eGFR (02/15/2021 11:16 PM CDT) eGFR 104 mL/min/1.7 3 m2 [facility] (MICHAEL) Comment: Interpretive Data Reference Interval Normal ?>/= 90 mL/min/1.73m2 Mildly decreased* ? 60 - 89 mL/min/1.73m2 Mildly to moderately decreased ?45 - 59 mL/min/1.73m2 Moderately to severely decreased ??30 - 44 mL/min/1.73m2 Severely decreased ?15 - 29 mL/min/1.73m2 Kidney Failure ?< 15 ??mL/min/1.73m2 *Relative to young adult level Estimated glomerular filtration rate is determined by [...] 70. Current interpretive data was last reviewed 2020 Blood specimen (specimen) 02/15/2021 11:16 PM CDT 02/15/2021 11:31 PM CDT us Gosia Burris MD LAB BLOOD ORDERABLES Final Result [facility] [address] [facility] Department [place] [address] * (ABNORMAL) Differential, auto (02/15/2021 11:16 PM CDT) Neutrophil abs 9.1(H) 1.7 - 6.5 K/cumm [facility] (MICHAEL) Imm gran abs 0.0 0.0 - 0.1 K/cumm [facility] ([place]EL) Lymphocyte abs 2.6 0.8 - 3.3 K/cumm [facility] ([place]EL) Monocyte abs 0.8 0.2 - 0.8 K/cumm [facility] ([place]EL) Eosinophil abs 0.1 0.0 - 0.5 K/cumm [facility] (MIC[facility]EL) Basophil abs 0.0 0.0 - 0.1 K/cumm [facility] (MICHAEL) Neutrophil pct 72.0 % [facility] (MICHAEL) Comment: Interpretive Data Percent cell count reference ranges are not reported, since discordance with absolute values may lead to misinterpretation of CBC data. Current Interpretive Data was last revised on 2018. Imm gran pct 0.3 % [facility] (MICHAEL) Comment: Interpretive Data Percent cell count reference ranges are not reported, since discordance with absolute values may lead to misinterpretation of CBC data. Current Interpretive Data was last revised on 2018. Lymphocyte pct 20.3 % EMILIA [facility] (MICHAEL) Comment: Interpretive Data Percent cell count reference ranges are not reported, since discordance with absolute values may lead to misinterpretation of CBC data. Current Interpretive Data was last revised on 2018. Monocyte pct 6.5 % [facility] (MICHAEL) Comment: Interpretive Data Percent cell count reference ranges are not reported, since discordance with absolute values may lead to misinterpretation of CBC data. Current Interpretive Data was last revised on 2018. Eosinophil pct 0.6 % [facility] (MICHAEL) Comment: Interpretive Data Percent cell count reference ranges are not reported, since discordance with absolute values may lead to misinterpretation of CBC data. Current Interpretive Data was last revised on 2018. Basophil pct 0.3 % [facility] (MICHAEL) Comment: Interpretive Data Percent cell count reference ranges are not reported, since discordance with absolute values may lead to misinterpretation of CBC data. Current Interpretive Data was last revised on 2018. Blood specimen (specimen) 02/15/2021 11:16 PM CDT 02/15/2021 11:31 PM CDT us Gosia Burris MD LAB BLOOD ORDERABLES Final Result [facility] (MICHAEL) [address] [facility] Department [place] [address] * Pro B-type natriuretic peptide (02/15/2021 11:16 PM CDT) NT-proBNP 40 <=300 pg/mL [facility] (MICHAEL) Comment: Interpretive Comments: A. Dyspnea in Acute Care Setting All Ages: ?< 300 pg/ml, acute heart failure unlikely. < 50 yrs: ?300 - 450 pg/ml, further investigation warranted. ? > 450 pg/ml, acute heart failure likely. 50 - 74 yrs: ? 300 - 900 pg/ml, further investigation warranted. ? > 900 pg/ml, acute heart failure likely . > or = 75 yrs: ? 450 - 1800 pg/ml, further investigation warranted. ? > 1800 pg/ml, acute heart failure likely. B. Non-acute Setting < 75 yrs ? < 125 pg/ml, rules out heart failure. ? > or = 125 pg/ml, further investigation warranted. > or = 75 yrs ?< 450 pg/ml, rules out heart failure. ? > or = 450 pg/ml, further investigation warranted. - Knowledge of each individual patient's NT-proBNP range may be more useful than using similar cut-points for every patient. Please note that marked elevations in NT-proBNP levels may be observed in state other than Left Ventricular Congestive Failure, including: acute coronary syndromes, right heart strain/failure (including pulmonary embolism and cor pulmonale), critical illness, renal failure, as well as advanced age. - References: 1. Anuj AGUSTIN et.al. Eur Heart J. 2006:27:330-337. 2. Montserrat RW, George AM. J. AM Hoa Cardiol: Cardiovasc Imag. 2009;2: 216- 225. Interpretive Data Last Revised Date: 2018. Blood specimen (specimen) 02/15/2021 11:16 PM CDT 02/15/2021 11:31 PM CDT us Gosia Burris MD LAB BLOOD ORDERABLES Final Result [facility]) [address] [facility] Department [place] [address] * Troponin T high-sensitivity series (baseline, 2hr, 4hr, 6hr) (02/15/2021 11:16 PM CDT) Trop T hs <6 <=14 ng/L [facility] (MICHAEL) Comment: Interpretive Data For further hscTnT resources including the diagnostic algorithm and an aid in interpretation, copy and paste this link: https://nrl.testcatalog.org/show/hsTrop Current Interpretive Data last revised 2020. Blood specimen (specimen) 02/15/2021 11:16 PM CDT 02/15/2021 11:31 PM CDT us Gosia Burris MD LAB BLOOD ORDERABLES Final Result [facility] (MICHAEL) [address] [facility] Department [place] [address] * (ABNORMAL) Comprehensive metabolic panel (02/15/2021 11:16 PM CDT) Sodium 138 135 - 145 mmol/L [facility] (MICHAEL) Potassium, pl 3.2(L) 3.3 - 4.9 mmol/L [facility] (MIC[facility]EL) Chloride 98 97 - 110 mmol/L [facility] ([facility]EL) CO2 29 22 - 32 mmol/L [facility] (MICHAEL) Anion gap 11 2 - 15 mmol/L [facility] BUN 4(L) 8 - 25 mg/dL [facility] (MICHAEL) Creatinine 0.76 0.60 - 1.10 mg/dL [facility] (MICHAEL) Glucose 108 70 - 199 mg/dL [facility] (MICHAEL) [...] interpretive data was last revised 2017. Calcium 9.5 8.5 - 10.3 mg/dL [facility] (MICHAEL) Bilirubin, total 0.4 0.1 - 1.2 mg/dL [facility] (MICHAEL) Protein, pl 7.6 6.5 - 8.5 g/dL [facility] (MICHAEL) Albumin 4.5 3.5 - 5.0 g/dL [facility] (MICHAEL) Alk phos 83 40 - 130 Units/L [facility] (MICHAEL) ALT 16 7 - 45 Units/L [facility] (MICHAEL) AST 22 10 - 45 Units/L [facility] (MICHAEL) Blood specimen (specimen) 02/15/2021 11:16 PM CDT 02/15/2021 11:31 PM CDT us Gosia Burris MD LAB BLOOD ORDERABLES Final Result [facility] (MICHAEL) [address] [facility] Department [place] [address] * (ABNORMAL) CBC with auto differential (02/15/2021 11:16 PM CDT) WBC 12.6(H) 3.8 - 9.9 K/cumm [facility] (MICHAEL) Hgb 12.4 11.9 - 15.5 g/dL [facility] (MICHAEL) Hct 38.2 35.6 - 45.5 % [facility] (MICHAEL) Plt 351 150 - 400 K/cumm [facility] (MICHAEL) MPV 9.4 9.1 - 12.3 fL [facility] (MIC[facility]EL) RBC 4.19 3.90 - 5.20 M/cumm [facility] (MICHAEL) MCV 91.2 81.3 - 96.4 fL [facility] (MICHAEL) MCH 29.6 27.1 - 33.3 pg [facility] (MICHAEL) MCHC 32.5 32.3 - 35.7 g/dL [facility] (MICHAEL) RDW CV 12.8 11.1 - 14.9 % [facility] (MICHAEL) RDW SD 41.8 35.7 - 48.1 fL [facility] (ALGER) NRBC abs 0.00 0.00 - 0.01 K/cumm [facility] (ALGER) Blood specimen (specimen) 02/15/2021 11:16 PM CDT 02/15/2021 11:31 PM CDT us Gosia Burris MD LAB BLOOD ORDERABLES Final Result [facility] (ALGER) [address] [facility] Department [place] [address] * XR Chest 1 Vw Portable (02/15/2021 10:52 PM CDT) Anatomical Region Laterality Modality Body, Chest N/A Computed Radiogr aphy 02/15/2021 10:4 6 PM CDT Narrative 02/15/2021 11:00 PM CDT [facility] ?Imaging Result Name: LORENA FLORES ? Ordering Phys: GOSIA BURRIS Age: 30 ?Date of : 1990 ? Accession Number: [id number] Date of Service: 02/15/2021 ??Gender: F EXAM DESCRIPTION: ?? XR CHEST 1 VIEW REASON FOR STUDY: ?? 30 year old female with a PMHx of HTN, migraines, unstable angina and anxiety who presents to the ED with a chief complaint of chest pain that began 2-3 hours ago. Patient reports she has been experiencing upper left chest pain with palpitations and some SOB, Duration: 2-3 hours ago TECHNIQUE: ?? Portable upright AP radiographic view of the chest acquired. COMPARISON: ?? 06/03/2020 ??LUNGS/PLEURA: ??No focal consolidation or pneumothorax. No pleural effusion. HEART/MEDIASTINUM: ??Heart size is stable. ??Unchanged mediastinal and hilar contours. HARDWARE/LINES/TUBES: ??None. BONES: ??No acute findings. OTHER: ??No other significant finding. ?? No acute cardiopulmonary disease. THIS IS AN ELECTRONICALLY VERIFIED FINAL REPORT 02/15/2021 10:57 PM - Electronically signed by Gabriela BROWN: KEVIN D: ??02/15/2021 10:57 PM T: ??02/15/2021 10:57 PM Report ID: [id number] Reading Location: ??[id number] Procedure Note Gabriela Givens MD - 02/15/2021 [facility] Imaging Result Name: LORENA FLORES Ordering Phys: GOSIA BURRIS Age: 30 Date of : 1990 Accession Number: [id number] Date of Service: 02/15/2021 Gender: F EXAM DESCRIPTION: XR CHEST 1 VIEW REASON FOR STUDY: 30 year old female with a PMHx of HTN, migraines,unstable angina and anxiety who presents to the ED with a chief complaint of chestpain that began 2-3 hours ago. Patient reports she has been experiencing upperleft chest pain with palpitations and some SOB, Duration: 2-3 hours ago TECHNIQUE: Portable upright AP radiographic view of the chestacquired. COMPARISON: 06/03/2020 LUNGS/PLEURA: No focal consolidation or pneumothorax. No pleural effusion. HEART/MEDIASTINUM: Heart size is stable. Unchanged mediastinal andhilar contours. HARDWARE/LINES/TUBES: None. BONES: No acute findings. OTHER: No other significant finding. No acute cardiopulmonary disease. THIS IS AN ELECTRONICALLY VERIFIED FINAL REPORT 02/15/2021 10:57 PM - Electronically signed by Gabriela BROWN: KEVIN Report ID: [id number] Reading Location: [id number] us Gosia Burris MD IMG XR PROCEDURES Final Re sult * ECG 12 lead (02/15/2021 10:10 PM CDT) 02/15/2021 10:1 0 PM CDT Narrative [facility] - 02/16/2021 11:19 AM CDT Vent Rate: 97 bpm RR Interval: 617 msec [place] Interval: 146 msec QRS Duration: 89 msec QT Interval: 342 msec QTC Interval: 396 msec P-R-T [place]: 48 - 22 - 29 degrees [address] RHYTHM MINIMAL ST DEPRESSION [0.025+ mV ST DEPRESSION] BORDERLINE ECG Compared to the prior ECG, previously seen ST segment depression is unchanged and heart rate now faster. Electronically Signed By: Dr Jasbir Nielson us Gosia Burris MD ECG ORDERABLES Final Resu lt [facility] documented in this encounter Visit Diagnoses Diagnosis Acute chest pain- Primary Unspecified chest pain Acute chest pain Unspecified chest pain Hypertension, unspecified type Palpitations Essential hypertension Unspecified essential hypertension Anxiety Anxiety state, unspecified documented in this encounter Admitting Diagnoses Diagnosis Acute chest pain Unspecified chest pain documented in this encounter Administered Medications Inactive Administered Medications - up to 3 most recent administrations Medication Order MAR Action Action Date Dose Rate Site acetaminophen (TYLENOL) tablet 650 mg 650 mg, oral, Every 4 hours PRN, 1st line for pain, Starting on Tue02/16/21 at 0315 Given 02/16/2021 3:21 AM CDT 650 mg amLODIPine (NORVASC) tablet 10 mg 10 mg, oral, Once, On 02/15/21 at 2239, For 1 dose Given 02/15/2021 11:23 PM CDT 10 mg amLODIPine (NORVASC) tablet 10 mg 10 mg, oral, Daily, First dose on Tue02/16/21 at 1000 Given 02/16/2021 10:16 AM CDT 10 mg aspirin chewable tablet 324 mg 324 mg, oral, Once, On 02/15/21 at 2240, For 1 dose Given 02/15/2021 11:22 PM CDT 324 mg aspirin enteric coated tablet 81 mg 81 mg, oral, Daily, First dose on Tue02/16/21 at 1000, Do not crush, chew, cut, dissolve, open or otherwise manipulate tablet/capsule. Given 02/16/2021 10:16 AM CDT 81 mg hydroCHLOROthiazide (HYDRODIURIL) tablet 12.5 mg 12.5 mg, oral, Daily, First dose on Tue02/16/21 at 1000 Given 02/16/2021 10:16 AM CDT 12.5 mg hydrOXYzine (VISTARIL) capsule 25 mg 25 mg, oral, Every 6 hours PRN, itching, anxiety, Starting on Tue02/16/21 at 0308 Given 02/16/2021 3:21 AM CDT 25 mg LORazepam (ATIVAN) injection 0.5 mg 0.5 mg, intravenous, Once, On Tue02/15/21 at 2239, For 1 dose, For IV administration, dilute with equal volume of 0.9% sodium chloride. Do not exceed a rate of 2 mg/minute Given 02/15/2021 11:24 PM CDT 0.5 mg LORazepam (ATIVAN) injection 0.5 mg 0.5 mg, intravenous, Once, On Tue02/16/21 at 0945, For 1 dose, For IV administration, dilute with equal volume of 0.9% sodium chloride. Do not exceed a rate of 2 mg/minute Given 02/16/2021 10:15 AM CDT 0.5 mg losartan (COZAAR) tablet 25 mg 25 mg, oral, Daily, First dose on Tue02/16/21 at 1000 Given 02/16/2021 10:16 AM CDT 25 mg nitroglycerin (NITROSTAT) sublingual tablet 0.4 mg 0.4 mg, sublingual, Every 5 min PRN, chest pain, Starting on Tue02/16/21 at 0057, For 3 doses, May administer up to 3 doses per episode. Given 02/16/2021 1:03 AM CDT 0.4 mg potassium chloride ER (KLOR-CON) extended release tablet 40 mEq 40 mEq, oral, Once, On Tue02/16/21 at 0025, For 1 dose, Do not crush, chew, cut, dissolve, open or otherwise manipulate tablet/capsule. Given 02/16/2021 12:28 AM CDT 40 mEq venlafaxine XR (EFFEXOR-XR) extended release capsule 75 mg 75 mg, oral, Daily, First dose on Tue02/16/21 at 1000, Do not crush, chew, cut, dissolve, open or otherwise manipulate tablet/capsule. Given 02/16/2021 10:16 AM CDT 75 mg documented in this encounter Discontinued Medications Medication Sig Discontinue Reason Start Date End Da te ondansetron ODT (ZOFRAN-ODT) 4 mg disintegrating tablet Take 1 tablet (4 mg total) by mouth every 8 (eight) hours as needed for nausea or vomiting Therapy completed 06/03/2020 02/16/2021 aspirin 81 mg enteric coated tablet Take 81 mg by mouth daily Duplicate order 02/16/2021 amLODIPine (NORVASC) 10 mg tablet Take 10 mg by mouth daily Duplicate order 08/01/2020 02/16/2021 dicyclomine (BENTYL) 20 mg tablet Take 1 tablet (20 mg total) by mouth 2 (two) times a day as needed (Crampy abdominal pain) for up to 7 days Therapy completed 06/03/2020 02/16/2021 pregabalin (LYRICA) 50 mg capsule Take 1 capsule (50 mg total) by mouth 3 (three) times a day. Therapy completed 11/01/2018 02/16/2021 topiramate (TOPAMAX) 25 mg tablet Take 2 tablets (50 mg total) by mouth 2 (two) times a day. Therapy completed 08/02/2018 02/16/2021 docusate sodium (COLACE) 100 mg capsuleIndications:consti pation Take 1 capsule (100 mg total) by mouth every 12 (twelve) hours Therapy completed 06/03/2020 02/16/2021 ibuprofen (ADVIL,MOTRIN) 600 mg tablet Take 1 tablet (600 mg total) by mouth every 6 (six) hours as needed for pain for up to 30 doses Therapy completed 06/03/2020 02/16/2021 traMADol (ULTRAM) 50 mg tablet Take 1 tablet (50 mg total) by mouth every 6 (six) hours as needed for pain. Therapy completed 07/30/2018 02/16/2021 documented as of this encounter Historical Medications * This list may reflect changes made after this encounter. losartan (COZAAR) 25 mg tablet Take 25 mg by mouth daily 12/23/2020 hydroCHLOROthiazi de (MICROZIDE) 12.5 mg capsule Take 12.5 mg by mouth daily 12/23/2020 amLODIPine (NORVASC) 10 mg tablet Take 10 mg by mouth daily 08/01/2020 02/16/2021 venlafaxine XR (EFFEXOR-XR) 75 mg 24 hr capsule Take 75 mg by mouth daily 08/01/2020 04/12/2023 aspirin 81 mg enteric coated tablet Take 81 mg by mouth daily 02/16/2021 added in this encounter Active and Recently Administered Medications Times are shown in CDT. Scheduled Medication Order 02/14/2021 02/15/2021 02/16/2021 amLODIPine (NORVASC) tablet 10 mg (COMPLETED) 10 mg, oral, Once, On 02/15/21 at 2239, For 1 dose 232 (Given - Provider: Ana Cristina David RN) amLODIPine (NORVASC) tablet 10 mg 10 mg, oral, Daily, First dose on Tue02/16/21 at 1000 1016 (Given - Provid er: Miguel Kennedy RN) aspirin chewable tablet 324 mg (COMPLETED) 324 mg, oral, Once, On 02/15/21 at 2240, For 1 dose 2321 (Given - Provider: Ana Cristina Davdi RN) aspirin enteric coated tablet 81 mg 81 mg, oral, Daily, First dose on Tue02/16/21 at 1000, Do not crush, chew, cut, dissolve, open or otherwise manipulate tablet/capsule. 1016 (Given - Provid er: Miguel Kennedy RN) enoxaparin (LOVENOX) syringe 40 mg 40 mg, subcutaneous, Daily (for enoxaparin), First dose on Tue02/16/21 at 2100, Indications: Deep Vein Thrombosis Prevention hydroCHLOROthiazide (HYDRODIURIL) tablet 12.5 mg 12.5 mg, oral, Daily, First dose on Tue02/16/21 at 1000 1016 (Given - Provid er: Miguel Kennedy RN) LORazepam (ATIVAN) injection 0.5 mg (COMPLETED) 0.5 mg, intravenous, Once, On Tue02/15/21 at 2239, For 1 dose, For IV administration, dilute with equal volume of 0.9% sodium chloride. Do not exceed a rate of 2 mg/minute 232 (Given - Provider: Ana Cristina David RN) LORazepam (ATIVAN) injection 0.5 mg (COMPLETED) 0.5 mg, intravenous, Once, On Tue02/16/21 at 0945, For 1 dose, For IV administration, dilute with equal volume of 0.9% sodium chloride. Do not exceed a rate of 2 mg/minute 1015 (Given - Provid er: Miguel Kennedy RN) losartan (COZAAR) tablet 25 mg 25 mg, oral, Daily, First dose on Tue02/16/21 at 1000 1016 (Given - Provid er: Miguel Kennedy RN) potassium chloride ER (KLOR-CON) extended release tablet 40 mEq (COMPLETED) 40 mEq, oral, Once, On Tue02/16/21 at 0025, For 1 dose, Do not crush, chew, cut, dissolve, open or otherwise manipulate tablet/capsule. 0028 (Given - Provid er: Tiffany Chan RN) venlafaxine XR (EFFEXOR-XR) extended release capsule 75 mg 75 mg, oral, Daily, First dose on Tue02/16/21 at 1000, Do not crush, chew, cut, dissolve, open or otherwise manipulate tablet/capsule. 1016 (Given - Provid er: Miguel Kennedy RN) PRN Medication Order 02/14/2021 02/15/2021 02/16/2021 acetaminophen (TYLENOL) tablet 650 mg 650 mg, oral, Every 4 hours PRN, 1st line for pain, Starting on Tue02/16/21 at 0315 0321 (Given - Provid er: Raay Ng RN) hydrOXYzine (VISTARIL) capsule 25 mg 25 mg, oral, Every 6 hours PRN, itching, anxiety, Starting on Tue02/16/21 at 0308 0321 (Given - Provid er: Raya Ng RN) nitroglycerin (NITROSTAT) sublingual tablet 0.4 mg 0.4 mg, sublingual, Every 5 min PRN, chest pain, Starting on Tue02/16/21 at 0057, For 3 doses, May administer up to 3 doses per episode. 0103 (Given - Provid er: Ana Cristina David RN) documented in this encounter Orders Medications Ordered That Mehdi ht Not Have Been Administered Count Last Ordered Date First Ordered Date enoxaparin (LOVENOX) syringe 40 mg 1 2020 amLODIPine (NORVASC) tablet 5 mg 1 02/16/20 21 Nursing Count Last Ordered Date First Orde red Date WEIGH PATIENT 1 02/16/2021 Consult Count Last Ordered Date First Orde red Date IP CONSULT TO CARDIOLOGY 1 02/16/2021 IV Count Last Ordered Date First Orde red Date INSERT PERIPHERAL IV 1 02/15/2021 ADT Patient Update Count Last Ordered Date Firs t Ordered Date ED IP DECISION TO ADMIT 1 02/16/2021 documented in this encounter Additional Health Concerns Infection Onset Date Last Indicated Resolved Time MRSA Comment:Backloaded September 16, 2011 05/28/2011 05/28/201106/28 5:00 AM CDT documented as of this encounter Care Teams Repairer Veneer Sheet Relationship Specialty [place] [id number] [address] [address] Consulting Physician Cardiovascular Disease 11/01/18 [place] [id number] [address] [address] [address] Consulting Physician Cardiovascular Disease 11/06/18 documented as of this encounter
--- OUTSIDE RECORDS SUMMARY | 2024-11-30 00:26 | XMS_ITS | Encounter Summary ---
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 ([facility]) BUN 5(L) 8 - 25 mg/dL [facility] ([facility]) Creatinine 0.79 0.60 - 1.10 mg/dL [facility] ([facility]) Glucose 144 70 - 199 mg/dL [facility] ([facility]EL) [...] classification and Diagnosis of Diabetes Diabetes Care 2021; 46: S19-S40. Current interpretive data was last revised 2022. Calcium 9.1 8.5 - 10.3 mg/dL [facility] ([facility]) Bilirubin, total 0.7 0.1 - 1.2 mg/dL [facility] ([facility]) Protein, pl 7.2 6.5 - 8.5 g/dL [facility] ([facility]) Albumin 3.7 3.5 - 5.0 g/dL [facility] ([facility]) Alk phos 117 40 - 130 Units/L [facility] ([facility]) ALT 12 7 - 45 Units/L [facility] ([facility]) AST 15 10 - 45 Units/L [facility] ([facility]) Blood (Blood, Venous) 04/12/2023 10:15 PM CDT 04/12/2023 10:37 PM CDT us Simran Rolle MD LAB BLOOD ORDERABLE S Final Result [facility] ([facility]) [facility] Department [place] [address] * (ABNORMAL) CBC with auto differential (04/12/2023 10:15 PM CDT) WBC 15.6(H) 3.8 - 9.9 K/cumm [facility] ([facility]) Hgb 12.6 11.9 - 15.5 g/dL [facility] ([facility]) Hct 38.2 35.6 - 45.5 % [facility] ([facility]) Plt 322 150 - 400 K/cumm [facility] ([facility]) MPV 9.3 9.1 - 12.3 fL [facility] ([facility]) RBC 4.31 3.90 - 5.20 M/cumm [facility] ([facility]) MCV 88.6 81.3 - 96.4 fL [facility] ([facility]) MCH 29.2 27.1 - 33.3 pg [facility] ([facility]) MCHC 33.0 32.3 - 35.7 g/dL [facility] ([facility]) RDW CV 14.6 11.1 - 14.9 % [facility] ([facility]) RDW SD 47.1 35.7 - 48.1 fL [facility] ([facility]) NRBC abs 0.00 0.00 - 0.01 K/cumm [facility] (MICHAEL) Blood (Blood, Venous) 04/12/2023 10:15 PM CDT 04/12/2023 10:37 PM CDT us Simran Rolle MD LAB BLOOD ORDERABLE S Final Result [facility] ([place]) [facility] Department [place] [address] documented in this encounter Visit Diagnoses Diagnosis Pyelonephritis- Primary Unspecified pyelonephritis Hypokalemia Hypopotassemia documented in this encounter Administered Medications Inactive Administered Medications - up to 3 most recent administrations Medication Order MAR Action Action Date Dose Rate Site acetaminophen (TYLENOL) tablet 1,000 mg 1,000 mg, oral, Every 6 hours PRN, Flank Pain, Starting on Tue04/12/23 at 2209, For 2 doses, Do not administer if patient has taken greater than 3g of acetaminophen in the past 24 hours. Do not administer if patient has history of liver disease., Indications: Flank PainIndications:Flank Pain Given 04/12/2023 10:16 PM CDT 1,000 mg acetaminophen (TYLENOL) tablet 1,000 mg 1,000 mg, oral, Every 6 hours PRN, Flank Pain, Starting on Tue04/13/23 at 0352, For 2 doses, Do not administer if patient has taken greater than 3g of acetaminophen in the past 24 hours. Do not administer if patient has history of liver disease., Indications: Flank PainIndications:Flank Pain cefTRIAXone (ROCEPHIN) 2,000 mg/20 mL in sterile water (premix) 2,000 mg 2,000 mg, intravenous, at 1,200 mL/hr, Administer over 1 Minutes, Once, On Tue04/13/23 at 0314, For 1 dose, Indications: Urinary Tract/Genitourinary InfectionIndications:Urinary Tract/Genitourinary Infection Given 04/13/2023 3:33 AM CDT 2,000 mg 1200 mL/hr ketorolac (TORADOL) 15 mg/mL injection 15 mg 15 mg, intravenous, Once, On Tue04/13/23 at 0314, For 1 dose, For Adult IV push, administer over 15 seconds, Indications: PainIndications:Pain Given 04/13/2023 3:32 AM CDT 15 mg morphine injection 4 mg 4 mg, intravenous, Administer over 4 Minutes, Once, On Tue04/13/23 at 0354, For 1 dose Given 04/13/2023 3:55 AM CDT 4 mg ondansetron (ZOFRAN) injection 4 mg 4 mg, intravenous, Administer over 2 Minutes, Once, On Tue04/13/23 at 0314, For 1 dose, Indications: Nausea, VomitingIndications:Nausea,Vo miting Given 04/13/2023 3:33 AM CDT 4 mg ondansetron (ZOFRAN) injection 4 mg 4 mg, intravenous, Administer over 2 Minutes, Once as needed, nausea, vomiting, If patient unable to tolerate PO, Starting on Tue04/13/23 at 0352, For 1 dose, Do not administer if patient had 8mg administered within 6 hours of patient presenting to ED Do not administer if patient was formally diagnosed with prolonged QT syndrome ondansetron ODT (ZOFRAN-ODT) disintegrating tablet 4 mg 4 mg, oral, Once as needed, nausea, vomiting, If able to tolerate PO, Starting on Tue04/13/23 at 0352, For 1 dose, Do not administer if patient had 8mg administered within 6 hours of patient presenting to ED Do not administer if patient was formally diagnosed with prolonged QT syndrome sodium chloride 0.9% bolus 1,000 mL 1,000 mL, intravenous, at 1,000 mL/hr, Administer over 1 Hours, Once, On Tue04/13/23 at 0314, For 1 dose New Bag 04/13/2023 3:51 AM CDT 1,000 mL 1000 mL/hr documented in this encounter Discontinued Medications Medication Sig Discontinue Reason Start Date End Da te venlafaxine XR (EFFEXOR-XR) 75 mg 24 hr capsule Take 75 mg by mouth daily Therapy completed 08/01/2020 04/12/2023 acetaminophen (TYLENOL) 500 mg tablet Take 2 tablets (1,000 mg total) by mouth every 8 (eight) hours as needed for pain for up to 20 doses 06/03/2020 04/13/2023 documented as of this encounter Historical Medications * This list may reflect changes made after this encounter. venlafaxine XR (EFFEXOR-XR) 37.5 mg 24 hr capsule Take by mouth daily 04/05/2023 medroxyPROGESTE [place] 150 mg/mL injection INJECT 1 MILLILITER INTRAMUSCULARLY EVERY 3 MONTHS 03/27/2023 added in this encounter Active and Recently Administered Medications Times are shown in CDT. Scheduled Medication Order 04/11/2023 04/12/2023 04/13/2023 cefTRIAXone (ROCEPHIN) 2,000 mg/20 mL in sterile water (premix) 2,000 mg (COMPLETED) 2,000 mg, intravenous, at 1,200 mL/hr, Administer over 1 Minutes, Once, On Tue04/13/23 at 0314, For 1 dose, Indications: Urinary Tract/Genitourinary Infection 0333 (Given - Provid er: Dago Wilkinson RN) ketorolac (TORADOL) 15 mg/mL injection 15 mg (COMPLETED) 15 mg, intravenous, Once, On Tue04/13/23 at 0314, For 1 dose, For Adult IV push, administer over 15 seconds, Indications: Pain 0332 (Given - Provid er: Dago Wilkinson RN) morphine injection 4 mg (COMPLETED) 4 mg, intravenous, Administer over 4 Minutes, Once, On Tue04/13/23 at 0354, For 1 dose 0355 (Given - Provid er: Dago Wilkinson RN) ondansetron (ZOFRAN) injection 4 mg (COMPLETED) 4 mg, intravenous, Administer over 2 Minutes, Once, On Tue04/13/23 at 0314, For 1 dose, Indications: Nausea, Vomiting 0333 (Given - Provid er: Dago Wilkinson RN) sodium chloride 0.9% bolus 1,000 mL (COMPLETED) 1,000 mL, intravenous, at 1,000 mL/hr, Administer over 1 Hours, Once, On Tue04/13/23 at 0314, For 1 dose 0351 (New Bag - Prov ider: Dago Wilkinson RN)0601 (Stopped - Provider: Dago Wilkinson RN) PRN Medication Order 04/11/2023 04/12/2023 04/13/2023 acetaminophen (TYLENOL) tablet 1,000 mg 1,000 mg, oral, Every 6 hours PRN, Flank Pain, Starting on Tue04/12/23 at 2209, For 2 doses, Do not administer if patient has taken greater than 3g of acetaminophen in the past 24 hours. Do not administer if patient has history of liver disease., Indications: Flank Pain 2216 (Given - Provider: Shereen Park RN) acetaminophen (TYLENOL) tablet 1,000 mg 1,000 mg, oral, Every 6 hours PRN, Flank Pain, Starting on Tue04/13/23 at 0352, For 2 doses, Do not administer if patient has taken greater than 3g of acetaminophen in the past 24 hours. Do not administer if patient has history of liver disease., Indications: Flank Pain ondansetron (ZOFRAN) injection 4 mg 4 mg, intravenous, Administer over 2 Minutes, Once as needed, nausea, vomiting, If patient unable to tolerate PO, Starting on Tue04/13/23 at 0352, For 1 dose, Do not administer if patient had 8mg administered within 6 hours of patient presenting to ED Do not administer if patient was formally diagnosed with prolonged QT syndrome ondansetron ODT (ZOFRAN-ODT) disintegrating tablet 4 mg 4 mg, oral, Once as needed, nausea, vomiting, If able to tolerate PO, Starting on Tue04/13/23 at 0352, For 1 dose, Do not administer if patient had 8mg administered within 6 hours of patient presenting to ED Do not administer if patient was formally diagnosed with prolonged QT syndrome documented in this encounter Orders Medications Ordered That Mehdi ht Not Have Been Administered Count Last Ordered Date First Ordered Date acetaminophen (TYLENOL) tablet 1,000 mg 1 0 04/13/2023 ondansetron (ZOFRAN) injection 4 mg 2 04/1304/12/2023 ondansetron ODT (ZOFRAN-ODT) disintegrating tablet 4 mg 2 04/13/2023 04/12/2023 documented in this encounter Care Teams Policy Issue Clerk Relationship Specialty Start Date End Date Miguel Vazquez MD [address] [place] [address] [address] [place] [address] PCP - General Family Medicine 04/04/23 09/14/24 [place] [id number] [address] Consulting Physician Cardiovascular Disease 11/01/18 [place] [id number] [address] [address] Consulting Physician Cardiovascular Disease 11/06/18 documented as of this encounter
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
--- OUTSIDE RECORDS SUMMARY | 2024-11-30 00:27 | XMS_ITS | Encounter Summary ---
Author Organization [facility] Healthcare Address [address] [place] [address] Care Team Providers Care Frame Nailer Name Role Phone See Gonsalez MD Primary Care Provider + Reason for Visit * Reason Comments Chest Pain Peripheral Neuropathy Encounter Details Date Type Department Care Team (Late st Contact Info) Description 10/16/2018 4:53 PM CONDUCTOR AND ENGINEER - 10/16/2018 8:03 PM CONDUCTOR AND ENGINEER Emergency [facility] Emergency Department [address] [place] [address] Olegario Dunn MD [address] [place] [address] Neuropathy (CMS/HCC) (Primary Dx); Chest tightness or pressure Discharge Disposition: Discharge to home or self care Social History Tobacco Use Types Packs/Day Years Used Date Smoking Tobacco: Never Smokeless Tobacco: Never Alcohol Use Standard Drinks/Week Comments No 0 (1 standard drink = 0.6 oz pur e alcohol) rare Comments No Sex and Gender Information Value Date Recorded Sex Assigned at Not on file Legal Sex Female 1:47 AM CONDUCTOR AND ENGINEER Gender Identity Not on file Sexual Orientation Not on file documented as of this encounter Last Filed Vital Signs Vital Sign Reading Time Taken Comments Blood Pressure 109/78 10/16/2018 7:45 PM CONDUCTOR AND ENGINEER Pulse 92 10/16/2018 7:45 PM CONDUCTOR AND ENGINEER Temperature 36.6 ??C (97.9 ??F) 10/16/2018 7:45 PM CS T Respiratory Rate 17 10/16/2018 7:45 PM CONDUCTOR AND ENGINEER Oxygen Saturation 100% 10/16/2018 7:45 PM CONDUCTOR AND ENGINEER Inhaled Oxygen Concentration - - Weight 80.7 kg (178 lb) 10/16/2018 5:10 PM CONDUCTOR AND ENGINEER Height 172.7 cm (5' 8 ) 10/16/2018 5:10 PM CONDUCTOR AND ENGINEER Body Mass Index 27.06 10/16/2018 5:10 PM CONDUCTOR AND ENGINEER documented in this encounter Discharge Instructions * Attachments The following attachments cannot be sent through Care Everywhere. * Chest Pain, Noncardiac (Indonesian) * Peripheral Neuropathy (General Information) (Indonesian) documented in this encounter Medications at Time of Discharge nitrofurantoin monohydrate (MACROBID) 100 mg capsule Take 1 capsule (100 mg total) by mouth 2 (two) times a day for 7 days. 14 capsule 10/16/2018 8 pregabalin (LYRICA) 50 mg capsule Take 1 capsule (50 mg total) by mouth 3 (three) times a day. 90 capsule 5 08/09/2018 8 SUMAtriptan (IMITREX) 100 mg tablet Take 1 tablet (100 mg total) by mouth once as needed for migraine (headache) for up to 1 dose. May repeat one time after 2 hours if needed. 9 tablet 11 08/09/2018 8 topiramate (TOPAMAX) 25 mg tablet Take 2 tablets (50 mg total) by mouth 2 (two) times a day. 120 tablet 08/02/2018 1 traMADol (ULTRAM) 50 mg tablet Take 1 tablet (50 mg total) by mouth every 6 (six) hours as needed for pain. 20 tablet 07/30/2018 1 documented as of this encounter Discharge Disposition Disposition Code Departure Means Destination Discharge to home or self care documented in this encounter ED Notes * Olegario Dunn MD - 10/16/2018 5:06 PM CST HPI Chief Complaint Patient presents with ??? Chest Pain ??? Peripheral Neuropathy HPI 5:07 PM Lorena Deshpande is a 28 y.o. female with a history of hypertension and anxiety. Patient states 3 hours ago she was running errands then felt dizziness and generalized weakness, then within the last 30 minutes she developed diffuse chest pressure . She states when she has anxiety attacks she typically has weakness, dizziness and palpitations. Patient denies SOB. Patient also c/o pain in her feet which she attributes to neuropathy. Patient was seen at [facility] ED yesterday for evaluation of panic attack and elevated blood pressure. EDwork up was unremarkable, and symptoms improved with Ativan. Patient was discharged home. Patient History Past Medical History: Diagnosis Date ??? Anxiety ??? Headache ??? HX OTHER MEDICAL Carpal tunnel syndrome ??? Hypertension ??? Migraine ??? Peripheral neuropathy Past Surgical History: Procedure Laterality Date ??? BREAST BIOPSY ??? CERVICAL BIOPSY W/ LOOP ELECTRODE EXCISION ??? OTHER SURGICAL HISTORY Carpal tunnel syndrome: Vicodin and Tramadol Family History Problem Relation Age of Onset ??? Diabetes Other Family history of Diabetes mellitus; ??? Hypertension Other Family history of Hypertension; ??? Hypertension Mother ??? Mitral valve prolapse Mother Social History Substance Use Topics ??? Smoking status: Never Smoker ??? Smokeless tobacco: Never Used ??? Alcohol use No Comment: rare Review of Systems Review of Systems Constitutional: Negative for chills, fatigue and fever. HENT: Negative for congestion, ear pain, rhinorrhea, sneezing and sore throat. Respiratory: Negative for cough, shortness of breath and wheezing. Cardiovascular: Positive for chest pain. Negative for palpitations. Gastrointestinal: Negative for abdominal pain, constipation, diarrhea, nausea and vomiting. Genitourinary: Negative for dysuria and frequency. Musculoskeletal: Negative for back pain and neck pain. + Feet pain Skin: Negative for rash and wound. Neurological: Positive for dizziness and weakness. Negative for syncope, light- headedness and headaches. All other systems reviewed and are negative. Physical Exam ED Triage Vitals Temp Pulse Resp BP SpO2 10/16/18 1710 10/16/18 1710 10/16/18 1710 10/16/18 1710 10/16/18 1709 36.7 ??C (98.1 ??F) 85 12 129/92 96 % Temp src Heart Rate Source Patient Position BP Location FiO2 (%) 10/16/18 1710 10/16/181944 -- 10/16/181944 -- Oral Monitor Left arm Physical Exam Constitutional: She is oriented to person, place, and time. She appears well- developed and well-nourished. No distress. HENT: Head: Normocephalic and atraumatic. Mouth/Throat: Oropharynx is clear and moist. Eyes: Conjunctivae and EOM are normal. Neck: Normal range of motion. Neck supple. Cardiovascular: Normal rate, regular rhythm, normal heart sounds and intact distal pulses. Exam reveals no gallop and no friction rub. No murmur heard. Pulmonary/Chest: Effort normal and breath sounds normal. No respiratory distress. She has no wheezes. She has no rales. Abdominal: Soft. She exhibits no distension. There is no tenderness. Musculoskeletal: Normal range of motion. She exhibits no edema, tenderness or deformity. Neurological: She is alert and oriented to person, place, and time. Skin: Skin is warm and dry. Capillary refill takes less than 2 seconds. No rash noted. No erythema.No pallor. Psychiatric: She has a normal mood and affect. Her behavior is normal. Nursing note and vitals reviewed. Procedures [facility] Labs Reviewed POCT HCG, URINE - Normal Result Value HCG, ur, POC Negative Lot Number [id number] QC Backgroud Clear Acceptable QC Control Line Acceptable XR Chest Pa Lateral 2 Views Final Result NO ACTIVE CARDIOPULMONARY DISEASE. Electronically signed by: Carmelo Clay M.D. BP 109/78 (BP Location: Left arm) Pulse 92 Temp 36.6 ??C (97.9 ??F) (Temporal) Resp 17 Ht 172.7 cm (5' 8 ) Wt 80.7 kg (178 lb) SpO2 100% BMI 27.06 kg/m?? Patient Vitals for the past 24 hrs: BP Temp Temp src Pulse Resp SpO2 Height Weight 10/16/18 1945 109/78 36.6 ??C (97.9 ??F) Temporal 92 17 100 % - - 10/16/18 1800 103/67 - - 72 11 100 % - - 10/16/18 1745 101/80 - - 72 15 100 % - - 10/16/18 1710 129/92 36.7 ??C (98.1 ??F) Oral 85 12 100 % 172.7 cm (5' 8 ) 80.7 kg (178 lb) 10/16/18 1709 - - - - - 96 % - - [facility] ED Course as of Oct 16 1957 Time: 10/16 1853 Comment: ED findings reviewed. Patients pain is slightly improved, but she is still having burning foot pain. Patient notes she has been out of her Tramadol and Lyrica for 4 days, and is requestinga prescription for these. Patient advised to call PCP for refill tomorrow. By: Miguel Howe DISPOSITION:DISCHARGED Miguel Shyam scribed for Olegario Dunn. I electronically signed this note at 5:07 PM on 10/16/2018. I, Olegario Dunn MD, have personally performed the services described in the documentation , reviewed the documentation, as recorded by the scribe in my presence, and it accurately and completely records my words and actions. Clinical Impression: Neuropathy (CMS/HCC) Chest tightness or pressure Olegario Dunn MD 10/16/181957 UCTOR AND ENGINEER * Jacey Bearden, RN - 10/16/2018 5:06 PM CST Pt came to ED for chest pressure and she believes her BP is high. Pt states she can tell when her BP is high because she begins to feel a clenching or tightening on the right side of her face. Pt also C/O of neuropathy pain in her feet and in her right hand. So also C/O dental pain. Pt was seen yesterday for the same complaint and treated for anxiety. UCTOR AND ENGINEER documented in this encounter Miscellaneous Notes * ED Procedure Note - Olgeario Dunn MD - 10/16/2018 5:56 PM CONDUCTOR AND ENGINEER Associated Order(s): ECG 12-LEAD Procedure ECG 12 lead Date/Time: 10/16/2018 5:02 PM Performed by: OLEGARIO DUNN Authorized by: OLEGARIO DUNN Rate: ECG rate: 79 Rhythm: Rhythm: sinus rhythm Ectopy: Ectopy: none QRS: QRS axis: Normal Conduction: Conduction: normal ST segments: ST segments: Normal T waves: T waves: inverted Inverted: V1 and V3 Other findings: Other findings comment: Poor baseline tracing Recommended Follow-up: Recommended follow up: no further workup needed Olegario Dunn MD 10/16/18 0773 UCTOR AND ENGINEER documented in this encounter Plan of Treatment Not on file documented as of this encounter Procedures Procedure Name Priority Date/Time Associated Diagnosis Comments XR CHEST PA LATERAL 2 VIEWS ED 10/16/2018 6:42 PM CONDUCTOR AND ENGINEER POCT HCG, URINE Routine 10/16/2018 6:36 PM CONDUCTOR AND ENGINEER ECG 12-LEAD STAT 10/16/2018 5:02 PM CONDUCTOR AND ENGINEER documented in this encounter Results * XR Chest Pa Lateral 2 Views (10/16/2018 6:42 PM CONDUCTOR AND ENGINEER) Anatomical Region Laterality Modality Body, Chest N/A Computed Radiogr aphy 10/16/2018 7:38 PM CONDUCTOR AND ENGINEER Impressions 10/16/2018 7:39 PM CONDUCTOR AND ENGINEER NO ACTIVE CARDIOPULMONARY DISEASE. Electronically signed by: Carmelo Clay M.D. [facility] 10/16/2018 7:39 PM CONDUCTOR AND ENGINEER XR CHEST PA LATERAL 2 VIEWS HISTORY: chest pressure. ??Hypertension. ??Dizziness. COMPARISON: 10/29/2015 FINDINGS: PA frontal and lateral projections are obtained. The lungs are clear bilaterally with no focal infiltrates. The heart size and pulmonary vascularity are normal. Procedure Note Carmelo Clay MD - 10/16/2018 XR CHEST PA LATERAL 2 VIEWS HISTORY: chest pressure. Hypertension. Dizziness. COMPARISON: 10/29/2015 FINDINGS: PA frontal and lateral projections are obtained. The lungs are clear bilaterally with no focal infiltrates. The heart size and pulmonary vascularity are normal. IMPRESSION: NO ACTIVE CARDIOPULMONARY DISEASE. Electronically signed by: Carmelo Clay M.D. Olegario Dunn MD IMG XR PROCEDURES F inal Result * POCT hCG, urine (10/16/2018 6:36 PM CONDUCTOR AND ENGINEER) HCG, ur, POC Negative Lot Number [id number] QC Backgroud Clear Acceptable QC Control Line Acceptable Urine 10/16/2018 6:36 PM CONDUCTOR AND ENGINEER Olegario Dunn MD POINT OF CARE TEST ORDERABLES Final Result * ECG 12 lead (10/16/2018 5:02 PM CONDUCTOR AND ENGINEER) Pathologist [facility] Patient age 28 years [facility] Interpretation Text SINUS RHYTHMNONSPECIFIC ST & T-WAVE ABNORMALITYBORDERLINE ECGPREVIOUS TRACIN10/16/2018 00.21No significant change compared to prior ECG [facility] Comment:Physician Interprete r Dr. Jasbir Nielson M.D. Ventricular Rate EKG/Min 79 /min [facility] P Wave Duration 127 ms [facility] QRS-Interval (MSEC) 89 ms [facility] [place]-Interval (MSEC) 151 ms [facility] QT Interval 352 ms [facility] QTc 385 ms [facility] QTC Interval ms [facility] P [place] 50 deg [facility] QRS [place] 45 deg [facility] T [place] -3 deg [facility] 10/16/2018 5:02 PM CONDUCTOR AND ENGINEER Olegario Dunn MD ECG ORDERABLES Fin al Result [facility] documented in this encounter Visit Diagnoses Diagnosis Neuropathy (CMS/HCC)- Primary Mononeuritis of unspecified site Chest tightness or pressure documented in this encounter Administered Medications Inactive Administered Medications - up to 3 most recent administrations Medication Order MAR Action Action Date Dose Rate Site HYDROcodone-acetaminophen (NORCO) 5-325 mg per tablet 1 tablet 1 tablet, oral, Once, On 10/16/18 at 1738, For 1 dose, Indications: PainIndications:Pain Given 10/16/2018 5:45 PM CONDUCTOR AND ENGINEER 1 tablet LORazepam (ATIVAN) tablet 1 mg 1 mg, oral, Once, On Tue10/16/18 at 1738, For 1 dose Given 10/16/2018 5:45 PM CONDUCTOR AND ENGINEER 1 mg pregabalin (LYRICA) capsule 50 mg 50 mg, oral, Once, On Tue10/16/18 at 1855, For 1 dose Given 10/16/2018 7:45 PM CONDUCTOR AND ENGINEER 50 mg traMADol (ULTRAM) tablet 50 mg 50 mg, oral, Once, On Tue10/16/18 at 1906, For 1 dose Given 10/16/2018 7:09 PM CONDUCTOR AND ENGINEER 50 mg documented in this encounter Active and Recently Administered Medications Times are shown in CONDUCTOR AND ENGINEER. Scheduled Medication Order 10/14/2018 10/15/2018 10/16/2018 HYDROcodone-acetaminophen (NORCO) 5-325 mg per tablet 1 tablet (COMPLETED) 1 tablet, oral, Once, On Tue10/16/18 at 1738, For 1 dose, Indications: Pain 1745 (Given - Provid er: Jacey Bearden RN) LORazepam (ATIVAN) tablet 1 mg (COMPLETED) 1 mg, oral, Once, On Tue10/16/18 at 1738, For 1 dose 1745 (Given - Provid er: Jacey Bearden RN) pregabalin (LYRICA) capsule 50 mg (COMPLETED) 50 mg, oral, Once, On Tue10/16/18 at 1855, For 1 dose 1945 (Given - Provid er: Hailee Hyatt RN) traMADol (ULTRAM) tablet 50 mg (COMPLETED) 50 mg, oral, Once, On Tue10/16/18 at 1906, For 1 dose 1909 (Given - Provid er: Jacey Bearden RN) documented in this encounter Orders Medications Ordered That Mehdi ht Not Have Been Administered Count Last Ordered Date First Ordered Date traMADol (ULTRAM) tablet 100 mg 1 8 documented in this encounter Additional Health Concerns Infection Onset Date Last Indicated Resolved Time MRSA Comment:Backloaded September 16, 2011 05/28/2011 05/28/201106/28 5:00 AM CDT documented as of this encounter Care Teams Frame Nailer Relationship Specialty Start Date End Date See Gonsalez MD PCP - General 10/15/18 02/14/21 documented as of this encounter
--- OUTSIDE RECORDS SUMMARY | 2024-11-30 00:27 | XMS_ITS | Encounter Summary ---
Author Organization [facility] Medical Group Address [address] [place] [address] Care Team Providers Care Market Development Analyst Name Role Phone Shante Thomas MD Primary Care Provider [phone] Encounter Details Date Type Department Care Team (Late st Contact Info) Description 08/30/2018 Telephone [facility] [address] [place] [address] Trupti Estrada MA Social History Tobacco Use Types Packs/Day Years Used Date Smoking Tobacco: Never Smokeless Tobacco: Never Alcohol Use Standard Drinks/Week Comments Yes 0 (1 standard drink = 0.6 oz pur e alcohol) Comments No Sex and Gender Information Value Date Recorded Sex Assigned at Not on file Legal Sex Female 1:47 AM COMMERCIAL LINES ACCOUNT MANAGER Gender Identity Not on file Sexual Orientation Not on file documented as of this encounter Miscellaneous Notes * Telephone Encounter - Trupti Estrada MA - 09/05/2018 8:19 AM CDT Tried calling patient again. Left message on her voicemail to let her know that we do not treat Neuropathy with Tramadol and that she could call the office to get a sample of Lyrica. Patient was toldto call the office if she would like to get a sample. * Telephone Encounter - Mee See NP - 09/04/2018 2:49 PM CDT Send her a letter. * Telephone Encounter - Trupti Estrada MA - 09/04/2018 2:45 PM CDT Tried to call patient again and was unable to leave message due to mailbox being full * Telephone Encounter - Trupti Estrada MA - 08/31/2018 3:19 PM CDT Called patient and left message on her voicemail. * Telephone Encounter - Mee See NP - 08/30/2018 3:38 PM CDT Let her know that we don't treat neuropathy with pain medication like tramadol. We have extended release of lyrica, and have her come in to berry picker the sample. If agreed, give her 150mg Qd Lyrica (long lasting one). * Telephone Encounter - Trupti Estrada MA - 08/30/2018 3:28 PM CDT Patient states the Lyrica has helped but it makes her sleepy. She is wanting to know if she can only take the Lyrica at night and then take Tramadol twice during the day for the pain in her feet and legs. If you are ok with this, she needs a script called in for Lyrica and the Tramadol. Please advise. documented in this encounter Plan of Treatment Not on file documented as of this encounter Visit Diagnoses Not on filedocumented in this encounter Additional Health Concerns Infection Onset Date Last Indicated Resolved Time MRSA Comment:Backloaded September 16, 2011 05/28/2011 05/28/201106/28 5:00 AM CDT documented as of this encounter Care Teams Market Development Analyst Relationship Specialty Start Date End Date Shante Thomas MD PCP - General 07/30/18 10/14/18 documented as of this encounter
--- OUTSIDE RECORDS SUMMARY | 2024-11-30 00:27 | XMS_ITS | Encounter Summary ---
Author Organization [facility] Healthcare Address [address] [place] [address] Care Team Providers Care Process Treater Name Role Phone See Gonsalez MD Primary Care Provider + Zachary Driver MD Unavailable [phone] Jasbir Nielson MD Unavailable [phone] Reason for Visit * Reason Comments Constipation Encounter Details Date Type Department Care Team (Late st Contact Info) Description 12/19/2019 12:05 AM SOLID WASTE ANALYST - 12/19/2019 1:26 AM SOLID WASTE ANALYST Emergency [facility] Emergency Department [address] [place] [address] Manish Santiago MD [address] [address] Constipation, unspecified constipation type (Primary Dx) Discharge Disposition: Discharge to home [...] on file Legal Sex Female 1:47 AM SOLID WASTE ANALYST Gender Identity Not on file Sexual Orientation Not on file documented as of this encounter Last Filed Vital Signs Vital Sign Reading Time Taken Comments Blood Pressure 139/100 12/19/2019 12:15 AM SOLID WASTE ANALYST Pulse 84 12/19/2019 1:15 AM SOLID WASTE ANALYST Temperature 36.7 ??C (98.1 ??F) 12/19/2019 12:[address] Respiratory Rate 17 12/19/2019 12:11 AM SOLID WASTE ANALYST Oxygen Saturation 100% 12/19/2019 1:15 AM SOLID WASTE ANALYST Inhaled Oxygen Concentration - - Weight 80.7 kg (178 lb) 12/19/2019 12:11 AM SOLID WASTE ANALYST Height 170.2 cm (5' 7 ) 12/19/2019 12:11 AM SOLID WASTE ANALYST Body Mass Index 27.88 12/19/2019 12:11 AM SOLID WASTE ANALYST documented in this encounter Discharge Diagnoses Diagnosis Constipation, unspecified - CONSTIPATION, UNSPECIFIED Anxiety disorder, unspecified - ANXIETY DISORDER, UNSPECIFIED Essential (primary) hypertension - ESSENTIAL (PRIMARY) HYPERTENSION Unspecified essential hypertension documented in this encounter Discharge Instructions * Attachments The following attachments cannot be sent through Care Everywhere. * Constipation (Adult) (Emirati) documented in this encounter Medications at Time of Discharge aspirin 81 mg tablet Take 81 mg by mouth daily. dicyclomine (BENTYL) 20 mg tablet Take 1 tablet (20 mg total) by mouth 2 (two) times a day 20 tablet 12/19/2019 06/03/2020 pregabalin (LYRICA) 50 mg capsule Take 1 capsule (50 mg total) by mouth 3 (three) times a day. 90 capsule 1 11/01/2018 02/16/2021 topiramate (TOPAMAX) 25 mg tablet Take 2 tablets (50 mg total) by mouth 2 (two) times a day. 120 tablet 08/02/2018 02/16/2021 traMADol (ULTRAM) 50 mg tablet Take 1 tablet (50 mg total) by mouth every 6 (six) hours as needed for pain. 20 tablet 07/30/2018 02/16/2021 documented as of this encounter Ordered Prescriptions Prescription Sig Dispense Quantity Refills Last Filled Start Date End Date dicyclomine (BENTYL) 20 mg tablet Take 1 tablet (20 mg total) by mouth 2 (two) times a day 20 tablet 12/19/2019 06/03/2020 documented in this encounter Discharge Disposition Disposition Code Departure Means Destination Discharge to home or self care documented in this encounter ED Notes * Manish Santiago MD - 12/19/2019 12:10 AM CST HPI Chief Complaint Patient presents with ??? Constipation 12:11 AM Lorena Deshpande is a 29 y.o. female with a past medical history including migraine, HTN, anxiety, peripheral neuropathy, and IBS who presents to the Emergency Department complaining of constipation for 1 week. The patient states that her last bowel movement was 1 week ago. The patient hasno other medical complaints, or any other pertinent symptoms at this time. Patient History Patient Active Problem List Diagnosis Date Noted [...] rare ??? Drug use: No Social History Patient does not qualify to have social determinant information on file (likely too young). Social History Narrative Grandartur had an CT in his 60s Review of Systems Review of Systems Constitutional: Negative for chills and fever. HENT: Negative for ear pain and sore throat. Eyes: Negative for pain and visual disturbance. Respiratory: Negative for cough and shortness of breath. Cardiovascular: Negative for chest pain and palpitations. Gastrointestinal: Positive for constipation. Negative for abdominal pain and vomiting. Genitourinary: Negative for dysuria and hematuria. Musculoskeletal: Negative for arthralgias and back pain. Skin: Negative for color change and rash. Neurological: Negative for dizziness, seizures and syncope. All other systems reviewed and are negative. Physical Exam ED Triage Vitals [12/19/19 0011] Temp Pulse Resp BP SpO2 36.7 ??C (98.1 ??F) 87 17 (!) 140/108 100 % Temp src Heart Rate Source Patient Position BP Location FiO2 (%) -- -- -- -- -- Physical Exam Vitals signs and nursing note reviewed. Constitutional: Appearance: Normal appearance. HENT: Head: Normocephalic and atraumatic. Nose: Nose normal. Mouth/Throat: Mouth: Mucous membranes are moist. Eyes: Pupils: Pupils are equal, round, and reactive to light. Neck: Musculoskeletal: Normal range of motion and neck supple. Cardiovascular: Rate and Rhythm: Normal rate and regular rhythm. Pulses: Normal pulses. Heart sounds: Normal heart sounds. Pulmonary: Effort: Pulmonary effort is normal. Breath sounds: Normal breath sounds. Abdominal: Palpations: Abdomen is soft. Musculoskeletal: Normal range of motion. Skin: General: Skin is warm. Neurological: General: No focal deficit present. Mental Status: She is alert. [facility] Vitals: 12/19/19 0011 12/19/19 0015 BP: (!) 140/108 139/100 Pulse: 87 104 Resp: 17 Temp: 36.7 ??C (98.1 ??F) SpO2: 100% 100% Weight: 80.7 kg (178 lb) Height: 170.2 cm (5' 7 ) Labs Reviewed - No data to display XR Kub (Abd 1 View) (Results Pending) MDM Constipation, unspecified constipation type This note was prepared by Brittany Mota, acting as a Scribe for Manish Santiago MD. I electronically signed this note at 12:10 AM on 12/19/2019. I, Manish Santiago MD, personally performed the services described in this documentation, reviewed and edited the documentation which was dictated to the scribe in my presence, and it accurately records my words and actions. Manish Santiago MD 12/19/19 0049 D WASTE ANALYST * Juan Ochoa RN - 12/19/2019 12:09 AM CST Pt presents to the ed with constipation for the past week. Pt had a small bowel movement 4 days ago, since then the pt has tried miralax, mag citrate, suppositories with no relief. Pt states she is passing gas. Pt experiencing lower abd pain and nausea. D WASTE ANALYST documented in this encounter Plan of Treatment Not on file documented as of this encounter Procedures Procedure Name Priority Date/Time Associated Diagnosis Comments XR KUB ED 12/19/2019 12:25 AM SOLID WASTE ANALYST documented in this encounter Results * XR Kub (Abd 1 View) (12/19/2019 12:25 AM SOLID WASTE ANALYST) Anatomical Region Laterality Modality Body, Abdomen N/A Computed Radiogr aphy 12/19/2019 12:2 7 AM SOLID WASTE ANALYST Narrative 12/19/2019 12:56 AM SOLID WASTE ANALYST PROCEDURE INFORMATION: Exam: XR Abdomen, 1 View Exam date and time: 12/19/2019 12:27 AM Age: 29 years old Clinical indication: Patient HX: PT presents to the ED with constipation for the past week. PT had a small bowel movement 4 days ago, since then the PT has tried miralax, mag citrate, suppositories with no relief. PT states she is passing gas. PT experiencing lower abd pain and nausea. TECHNIQUE: Imaging protocol: XR of the abdomen. Views: Frontal supine view of the abdomen. 1 View. COMPARISON: CT ABDOMEN AND PELVIS WO CONTRAST 05/04/2014 1:20:10 PM FINDINGS: Gastrointestinal tract: There is a large amount of formed stool in the colon. There is no radiographic evidence for a bowel obstruction. Bones/joints: Unremarkable. IMPRESSION: Large amount of formed stool in the colon. No radiographic evidence for a bowel obstruction. THIS DOCUMENT HAS BEEN ELECTRONICALLY SIGNED BY HONG WEISS MD Procedure Note Hong Weiss MD - 12/19/2019 PROCEDURE INFORMATION: Exam: XR Abdomen, 1 View Exam date and time: 12/19/2019 12:27 AM Age: 29 years old Clinical indication: Patient HX: PT presents to the ED with constipationfor the past week. PT had a small bowel movement 4 days ago, since then the PThas tried miralax, mag citrate, suppositories with no relief. PT states sheis passing gas. PT experiencing lower abd pain and nausea. TECHNIQUE: Imaging protocol: XR of the abdomen. Views: Frontal supine view of the abdomen. 1 View. COMPARISON: CT ABDOMEN AND PELVIS WO CONTRAST 05/04/2014 1:20:10 PM FINDINGS: Gastrointestinal tract: There is a large amount of formed stool in thecolon. There is no radiographic evidence for a bowel obstruction. Bones/joints: Unremarkable. IMPRESSION: Large amount of formed stool in the colon. No radiographic evidence for abowel obstruction. THIS DOCUMENT HAS BEEN ELECTRONICALLY SIGNED BY HONG WEISS MD Manish Santiago MD IMG XR PROCEDURES Final Result documented in this encounter Visit Diagnoses Diagnosis Constipation, unspecified constipation type- Primary documented in this encounter Administered Medications Inactive Administered Medications - up to 3 most recent administrations Medication Order MAR Action Action Date Dose Rate Site dicyclomine (BENTYL) capsule 20 mg 20 mg, oral, Once, On Tue12/19/19 at 0114, For 1 dose Given 12/19/2019 1:17 AM SOLID WASTE ANALYST 20 mg magnesium citrate oral solution 296 mL 296 mL, oral, Once, On Tue12/19/19 at 0048, For 1 dose Given 12/19/2019 1:17 AM SOLID WASTE ANALYST 296 mL documented in this encounter Active and Recently Administered Medications Times are shown in SOLID WASTE ANALYST. Scheduled Medication Order 12/17/2019 12/18/2019 12/19/2019 dicyclomine (BENTYL) capsule 20 mg (COMPLETED) 20 mg, oral, Once, On Tue12/19/19 at 0114, For 1 dose 0117 (Given - Provid er: Moreno Concepcion RN) magnesium citrate oral solution 296 mL (COMPLETED) 296 mL, oral, Once, On Tue12/19/19 at 0048, For 1 dose 0117 (Given - Provid er: Moreno Concepcion RN) documented in this encounter Additional Health Concerns Infection Onset Date Last Indicated Resolved Time MRSA Comment:Backloaded September 16, 2011 05/28/2011 05/28/201106/28 5:00 AM CDT documented as of this encounter Care Teams Process Treater Relationship Specialty Start Date End Date See Gonsalez MD PCP - General 10/15/18 02/14/21 [place] [id number] [place] [address] [address] [address] Consulting Physician Cardiovascular Disease 11/01/18 [place] [address] [place] [address] [address] Consulting Physician Cardiovascular Disease 11/06/18 documented as of this encounter
--- OUTSIDE RECORDS SUMMARY | 2024-11-30 00:27 | XMS_ITS | Encounter Summary ---
Author Organization [facility] Healthcare Address [address] [place] [address] Care Team Providers Care Window And Door Installer Name Role Phone See Gonsalez MD Primary Care Provider + Reason for Visit * Reason Comments Hypertension Encounter Details Date Type Department Care Team (Late st Contact Info) Description 10/15/2018 11:29 PM BEAUTY DIRECTOR - 10/16/2018 2:12 AM [facility] Emergency [facility] Emergency Department [address] [place] [address] Tyson Gore MD [address] [place] [address] [place] [address] Keeley Philippe Elevated blood pressure reading (Primary Dx) Discharge Disposition: Discharge to home or self care Social History Tobacco Use Types Packs/Day Years Used Date Smoking Tobacco: Never Smokeless Tobacco: Never Alcohol Use Standard Drinks/Week Comments No 0 (1 standard drink = 0.6 oz pur e alcohol) rare Comments No Sex and Gender Information Value Date Recorded Sex Assigned at Not on file Legal Sex Female 1:47 AM BEAUTY DIRECTOR Gender Identity Not on file Sexual Orientation Not on file documented as of this encounter Last Filed Vital Signs Vital Sign Reading Time Taken Comments Blood Pressure 110/70 10/16/2018 2:00 AM BEAUTY DIRECTOR Pulse 84 10/16/2018 12:39 AM BEAUTY DIRECTOR Temperature 36.8 ??C (98.3 ??F) 10/15/2018 11:[address] Respiratory Rate 16 10/16/2018 12:39 AM BEAUTY DIRECTOR Oxygen Saturation 100% 10/16/2018 2:00 AM BEAUTY DIRECTOR Inhaled Oxygen Concentration - - Weight 80.7 kg (178 lb) 10/15/2018 11:42 PM BEAUTY DIRECTOR Height 172.7 cm (5' 8 ) 10/15/2018 11:42 PM BEAUTY DIRECTOR Body Mass Index 27.06 10/15/2018 11:42 PM BEAUTY DIRECTOR documented in this encounter Discharge Instructions * Discharge Instructions* Keeley Philippe MD - 10/16/2018 1:54 AM BEAUTY DIRECTOR I recommend close follow up with your primary doctor for re-evaluation of your blood pressure. You have signs of a Urinary tracti infection so I have started you on Macrobid for this. Seek immediate medical attention if you have new or worsening symptoms, headache, chest pain, shortness of breath, or for any other concern. TY DIRECTOR * Attachments The following attachments cannot be sent through Care Everywhere. * High Blood Pressure, Established, Out of Control (Jordanian) documented in this encounter Medications at Time [...] Refills Last Filled Start Date End Date nitrofurantoin monohydrate (MACROBID) 100 mg capsule Take 1 capsule (100 mg total) by mouth 2 (two) times a day for 7 days. 14 capsule 10/16/2018 8 documented in this encounter Discharge Disposition Disposition Code Departure Means Destination Discharge to home or self care documented in this encounter ED Notes * Tyson Gore MD - 10/16/2018 12:01 AM CST HPI Chief Complaint Patient presents with ??? Hypertension A 28-year-old female with past medical history of hypertension and peripheral neuropathy presents for a panic attack and elevated blood pressures. Patient states she has been under lot of stress recently with a new diagnosis of hypertension as well as family difficulties and states she had a full-blown panic attack while sitting on a couch today. Says her heart was racing a sense of dread and having tingling all over her body. Panic attack has come down somewhat but now she feels like her bloodpressure is elevated. With the pressure gets elevated she has an aura of a right-sided head pain the smell of pepper and tingling in her extremities all of which are present currently. Patient denies any visual changes and no signs of infection. Patient currently takes amlodipine 10 mg daily and states she has been compliant with medications. Her biggest concern right now is anxiety and feels herblood pressure likely correct that is corrected. Patient History Patient Active Problem List Diagnosis Date Noted ??? Hypertensive urgency 10/16/2018 Past Medical History: Diagnosis Date ??? Anxiety [...] ??? Hypertension Other Family history of Hypertension; Social History Substance Use Topics ??? Smoking status: Never Smoker ??? Smokeless tobacco: Never Used ??? Alcohol use No Comment: rare Social History Social History Narrative ??? No narrative on file Review of Systems Review of Systems Constitutional: Negative for chills and fever. HENT: Negative. Eyes: Negative. Respiratory: Negative for chest tightness and shortness of breath. Cardiovascular: Racing heart Gastrointestinal: Negative. Genitourinary: Negative for dysuria and vaginal bleeding. Musculoskeletal: Negative. Skin: Negative. Neurological: Positive for tremors. Negative for syncope, light-headedness and headaches. Psychiatric/Behavioral: Negative. Physical Exam ED Triage Vitals [10/15/18 2342] Temp Pulse Resp BP SpO2 36.8 ??C (98.3 ??F) 90 20 (!) 152/102 98 % Temp src Heart Rate Source Patient Position BP Location FiO2 (%) Oral -- -- -- -- Physical Exam Constitutional: She is oriented to person, place, and time. She appears well- developed and well-nourished. No distress. HENT: Head: Normocephalic and atraumatic. Mouth/Throat: Oropharynx is clear and moist. Eyes: Pupils are equal, round, and reactive to light. Conjunctivae and EOM are normal. No scleral icterus. Fundoscopic exam: The right eye shows no AV nicking, no exudate and no papilledema. The left eye shows no AV nicking, no exudate and no papilledema. Neck: Normal range of motion. Neck supple. Cardiovascular: Normal rate, regular rhythm, normal heart sounds and intact distal pulses. Pulmonary/Chest: Effort normal and breath sounds normal. She has no wheezes. Musculoskeletal: Normal range of motion. Neurological: She is alert and oriented to person, place, and time. No sensory deficit. She exhibits normal muscle tone. Skin: Skin is warm and dry. Capillary refill takes less than 2 seconds. No rash noted. She is not diaphoretic. Psychiatric: Her speech is normal and behavior is normal. Judgment and thought content normal. Her mood appears anxious. She is not actively hallucinating. Cognition and memory are normal. She is attentive. Nursing note and vitals reviewed. MDM MDM Number of Diagnoses or Management Options Diagnosis management comments: 28-year-old female with recent admission for hypertensive urgency who presents to the hospital after panic attack and having elevated blood pressure. Given her recent history I felt lab testing and EKG appropriate and I treated her symptoms of anxiety with Ativan and pain with Lyrica and tramadol which is her home medications. Blood pressure came down to normal range of 122/66 without any additional interventions. Care was signed over to Dr. Philippe will follow up on laboratory testing and decide on disposition. Amount and/or Complexity of Data Reviewed Clinical lab tests: ordered Decide to obtain previous medical records or to obtain history from someone other than the patient:yes Independent visualization of images, tracings, or specimens: yes ED Course as of Oct 16 1455 Time: 10/16 38 Comment: Blood pressure improved after Ativan. By: Tyson Gore MD Time: 10/16 015 Comment: Rechecked patient. Condition is improved. Discussed the results of ED findings, and the plan for discharge. Recommended follow up with PCP or return to ED for new or worsening symptoms. Patient understands and agrees with plan. All questions have been addressed and answered. By: Maria L Sanchez Elevated blood pressure reading Tyson Gore MD 10/16/18 005 Tyson Gore MD 10/16/18 1455 TY DIRECTOR TY DIRECTOR * Kaye Rodriges RN - 10/15/2018 11:51 PM CST Pt states she knew her BP was high because she feels her face tighten/clench on the right side and she can smell pepper. Mentions she has been under more stress than usual. Recently dx with HTN and was ICU admit. TY DIRECTOR documented in this encounter Miscellaneous Notes * ED Re-evaluation Note - Keeley Philippe MD - 10/16/2018 12:52 AM CST 12:52 AM 10/16/2018 Patient care assumed from Dr. Gore. Case and findings, including treatment plan, evaluations, consults, and lab/imaging results were discussed. Vitals: 10/15/18 2342 10/16/18 0039 BP: (!) 152/102 122/66 Pulse: 90 84 Resp: 20 16 Temp: 36.8 ??C (98.3 ??F) TempSrc: Oral SpO2: 98% Weight: 80.7 kg (178 lb) Height: 172.7 cm (5' 8 ) Labs Reviewed URINALYSIS AND REFLEX TO MICROSCOPIC AND CULTURE - Abnormal Result Value Color, ur Yellow Clarity, ur Cloudy (*) Specific gravity, ur 1.020 pH, urine 6.0 Protein, ur ql Negative Glucose, ur ql Negative Ketones, ur Negative Bilirubin, ur Negative Blood, ur 2+ (*) Urobilinogen, ur 1.0 Nitrite, ur Negative Leukocyte esterase, ur 2+ (*) Narrative: Urine pH is affected by diet, medications, systemic acid-base disturbances, and renal tubular function. pH may affect urinary stone formation. For example, urine pH below 6.0 may help reduce the tendency for calcium phosphate stones and pH greater than 6.0 may reduce the tendency for uric acid stone formation. Source: [facility] Differential.Last revised 12-08-2017 URINALYSIS, MICROSCOPIC ONLY - Abnormal WBC, ur 21-50 (*) RBC, ur 0-5 Epithelial cells, squamous, ur 1-5 Bacteria, ur 1+ (*) Mucous, ur Present (*) Calcium oxalate crystals, ur Trace (*) Hyaline casts, ur 6-10 Narrative: BASIC METABOLIC PANEL - Abnormal Sodium 138 Potassium, pl 3.3 Chloride 105 CO2 20 (*) Anion Gap 13 BUN 11 Creatinine 0.70 Glucose 110 Calcium 8.5 Narrative: CBC WITH AUTO DIFFERENTIAL - Abnormal WBC 9.2 Hgb 11.3 (*) Hct 34.1 (*) Plt 259 MPV 9.4 RBC 3.90 MCV 87.4 MCH 29.0 MCHC 33.1 RDW CV 12.2 RDW SD 39.3 NRBC Abs 0.00 Narrative: DIFFERENTIAL AUTO Neutrophil absolute 5.6 Immature granulocyte absolute 0.0 Lymphocytes absolute 2.8 Monocyte absolute 0.6 Eosinophils absolute 0.2 Basophils, abs 0.0 Neutrophils 60.6 Immature granulocytes 0.3 Lymphocytes 30.5 Monocytes 6.1 Eosinophils 2.3 Basophils 0.2 Narrative: EGFR GFR >60 Narrative: TROPONIN T No orders to display ED Course as of Oct 16 205 Time: 10/16 38 Comment: Blood pressure improved after Ativan. By: Tyson Gore MD Time: 10/16 152 Comment: Rechecked patient. Condition is improved. Discussed the results of ED findings, and the plan for discharge. Recommended follow up with PCP or return to ED for new or worsening symptoms. Patient understands and agrees with plan. All questions have been addressed and answered. By: Maria L Sanchez This note is prepared by Maria L Sanchez, acting as a scribe for Keeley Philippe MD. I electronically signed this note at 2:05 AM on 10/16/2018. I, Keeley Philippe MD, have personally performed the services described in the documentation, reviewed the documentation, as recorded by the scribe in my presence, and it accurately and completely records my words and actions. Keeley Philippe MD 10/16/185 TY DIRECTOR * ED Procedure Note - Tyson Gore MD - 10/16/2018 12:24 AM CSTAssociated Order(s): ECG 12-LEAD Procedure ECG 12 lead Date/Time: 10/16/2018 12:24 AM Performed by: TYSON GORE Authorized by: TYSON GORE Rate: ECG rate: 80 ECG rate assessment: normal Rhythm: Rhythm: sinus rhythm Ectopy: Ectopy: none QRS: QRS axis: Normal Conduction: Conduction: normal ST segments: ST segments: Normal T waves: T waves: inverted Inverted: V1 and II Previous ECG: Previous ECG: Compared to current Date of previous EC10/29/2015 Similarity: No change Interpretation: Interpretation: normal Recommended Follow-up: Recommended follow up: PCP follow-up Tyson Gore MD 10/16/18 0025 TY DIRECTOR documented in this encounter Plan of Treatment Not on file documented as of this encounter Procedures Procedure Name Priority Date/Time Associated Diagnosis Comments EGFR STAT 10/16/2018 1:19 AM BEAUTY DIRECTOR DIFFERENTIAL AUTO STAT 10/16/2018 1:1 9 AM BEAUTY DIRECTOR CBC WITH AUTO DIFFERENTIAL STAT 10/16/2018 1:19 AM BEAUTY DIRECTOR TROPONIN T STAT 10/16/2018 1:19 AM BEAUTY DIRECTOR BASIC METABOLIC PANEL STAT 10/16/2018 1:19 AM BEAUTY DIRECTOR ECG 12-LEAD Routine 10/16/2018 12:21 AM BEAUTY DIRECTOR URINALYSIS AND REFLEX TO MICROSCOPIC AND CULTURE STAT 10/16/2018 12:08 AM BEAUTY DIRECTOR URINALYSIS, MICROSCOPIC ONLY STAT 10/16/2018 12:08 AM BEAUTY DIRECTOR URINE CULTURE STAT 10/16/2018 12:08 AM BEAUTY DIRECTOR documented in this encounter Results * eGFR (10/16/2018 1:19 AM BEAUTY DIRECTOR) eGFR >60 mL/min/1.7 3 m2 [facility] (MICHAEL) Comment: Interpretive Data Reference Interval Normal ?>/= 90 mL/min/1.73m2 Mildly decreased* ? 60 - 89 mL/min/1.73m2 Mildly to moderately decreased ?45 - 59 mL/min/1.73m2 Moderately to severely decreased ??30 - 44 mL/min/1.73m2 Severely decreased ?15 - 29 mL/min/1.73m2 Kidney Failure ?< 15 ??mL/min/1.73m2 *Relative to young adult level If -Algerian multiply value by 1.16. Estimated glomerular filtration [...] was last reviewed 2016. Blood specimen (specimen) 10/16/2018 1:19 AM BEAUTY DIRECTOR 10/16/2018 1:19 AM BEAUTY DIRECTOR Narrative [facility] ([facility]) - 10/16/2018 1:39 AM BEAUTY DIRECTOR Keeley Philippe LAB BLOOD ORDERABLES Fi nal Result [facility] ([place]) [address] [facility] Department [place] [address] * Differential, auto (10/16/2018 1:19 AM BEAUTY DIRECTOR) Neutrophil abs 5.6 1.7 - 6.5 K/cumm [facility] ([facility]) Imm gran abs 0.0 0.0 - 0.1 K/cumm [facility] ([facility]) Lymphocyte abs 2.8 0.8 - 3.3 K/cumm [facility] ([place]) Monocyte abs 0.6 0.2 - 0.8 K/cumm [facility] ([place]) Eosinophil abs 0.2 0.0 - 0.5 K/cumm [facility] ([place]) Basophil abs 0.0 0.0 - 0.1 K/cumm [facility] ([place]) Neutrophil pct 60.6 % [facility] ([facility]EL) Comment: Interpretive [...] was last revised on 2018. Lymphocyte pct 30.5 % [facility] ([facility]) Comment: Interpretive Data Percent cell count reference ranges are not reported, since discordance with absolute values may lead to misinterpretation of CBC data. Current Interpretive Data was last revised on 2018. Monocyte pct 6.1 % [facility] ([place]) Comment: Interpretive Data Percent cell count reference ranges are not reported, since discordance with absolute values may lead to misinterpretation of CBC data. Current Interpretive Data was last revised on 2018. Eosinophil pct 2.3 % [facility] ([facility]) Comment: Interpretive Data Percent cell count reference ranges are not reported, since discordance with absolute values may lead to misinterpretation of CBC data. Current Interpretive Data was last revised on 2018. Basophil pct 0.2 % [facility] ([place]) Comment: Interpretive Data Percent cell count reference ranges are not reported, since discordance with absolute values may lead to misinterpretation of CBC data. Current Interpretive Data was last revised on 2018. Blood specimen (specimen) 10/16/2018 1:19 AM BEAUTY DIRECTOR 10/16/2018 1:19 AM BEAUTY DIRECTOR Narrative [facility] ([place]HAEL) - 10/16/2018 1:22 AM BEAUTY DIRECTOR us Keeley Philippe LAB BLOOD ORDERABLES Fi nal Result [facility] ([place]) 1 [facility] Department [place] [address] * Troponin T (10/16/2018 1:19 AM BEAUTY DIRECTOR) Pathologist [facility] Troponin T <0.01 0.00 - 0.01 ng/mL [facility] ([place]) Comment: Interpretive Data Reference ranges for children <18 years of age have not been established. - > or = 18 years: Serial determinations are recommended for the diagnosis of myocardial infarction. ??Temporal rise and fall are consistent with myocardial infarction when at least one value is above the 99th percentile upper reference limit for troponin assay. ??Journal of the [place] [employer] 2012;60:1581-98. Current Interpretive Data Last Revised Date: 2018. Blood specimen (specimen) 10/16/2018 1:19 AM BEAUTY DIRECTOR 10/16/2018 1:19 AM BEAUTY DIRECTOR Narrative [facility] ([facility]) - 10/16/2018 2:07 AM BEAUTY DIRECTOR Keeley Torres [facility] LAB BLOOD ORDERABLES nal Result [facility] ([place]) [address] [facility] Department [place] [address] * (ABNORMAL) CBC with auto differential (10/16/2018 1:19 AM BEAUTY DIRECTOR) [facility] WBC 9.2 3.8 - 9.9 K/cumm [facility] ([facility]) Hgb 11.3(L) 11.9 - 15.5 g/dL [facility] ([place]) Hct 34.1(L) 35.6 - 45.5 % [facility] ([place]) Plt 259 150 - 400 K/cumm [facility] ([place]) MPV 9.4 9.1 - 12.3 fL [facility] ([place]) RBC 3.90 3.90 - 5.20 M/cumm [facility] ([place]) MCV 87.4 81.3 - 96.4 fL [facility] ([place]) MCH 29.0 27.1 - 33.3 pg [facility] ([place]) MCHC 33.1 32.3 - 35.7 g/dL [facility] ([place]) RDW CV 12.2 11.1 - 14.9 % [facility] ([place]) RDW SD 39.3 35.7 - 48.1 fL [facility] ([place]) NRBC abs 0.00 0.00 - 0.01 K/cumm [facility] ([place]) Blood specimen (specimen) 10/16/2018 1:19 AM BEAUTY DIRECTOR 10/16/2018 1:19 AM BEAUTY DIRECTOR Narrative [facility] ([place]) - 10/16/2018 1:22 AM BEAUTY DIRECTOR Keeley Philippe LAB BLOOD ORDERABLES Fi nal Result [facility] ([place]) [address] [facility] Department [place] [address] * (ABNORMAL) Basic metabolic panel (10/16/2018 1:19 AM BEAUTY DIRECTOR) Sodium 138 135 - 145 mmol/L [facility] (MICHAEL) Potassium, pl 3.3 3.3 - 4.9 mmol/L [facility] ([facility]) Chloride 105 97 - 110 mmol/L [facility] (MICHAEL) CO2 20(L) 22 - 32 mmol/L [facility] ([place]) Anion gap 13 2 - 15 mmol/L [facility] ([place]) BUN 11 8 - 25 mg/dL [facility] ([place]EL) Creatinine 0.70 0.60 - 1.10 mg/dL [facility] (MICHAEL) Glucose 110 70 - 199 mg/dL [facility] ([place]EL) Comment: Interpretive Data Fasting glucose >/= [...] interpretive data was last revised 2017. Calcium 8.5 8.5 - 10.3 mg/dL [facility] ([place]) Blood specimen (specimen) 10/16/2018 1:19 AM BEAUTY DIRECTOR 10/16/2018 1:19 AM BEAUTY DIRECTOR Narrative [facility] ([place]EL) - 10/16/2018 1:39 AM BEAUTY DIRECTOR us Keeley Philippe LAB BLOOD ORDERABLES Fi nal Result Performing Organization Address City/[facility]/ZIP Co de Phone Number [facility] R[facility]I ([place]HAEL) [address] [facility] Department [place] [address] * ECG 12 lead (10/16/2018 12:21 AM BEAUTY DIRECTOR) Patient age 28 years [facility] Interpretation Text SINUS RHYTHMSEPTAL MYOCARDIAL INFARCTIONNonspecific T-wave abnormalityPREVIOUS TRACIN07/31/2018 10.24No significant change compared to prior ECG [facility] Comment:Physician Interprete r Dr. Jasbir Nielson M.D. Ventricular Rate EKG/Min 80 /min [facility] P Wave Duration 112 ms [facility] QRS-Interval (MSEC) 86 ms [facility] MD-Interval (MSEC) 144 ms [facility] QT Interval 364 ms [facility] QTc 399 ms [facility] QTC Interval ms [facility] P Boley 44 deg [facility] QRS Boley 21 deg [facility] T Boley 42 deg [facility] 10/16/2018 12:2 1 AM BEAUTY DIRECTOR us Tyson Gore MD ECG ORDERABLES Final Result Performing Organization Address [facility] Co de Phone Number [facility] * Urine culture (10/16/2018 12:08 AM BEAUTY DIRECTOR) Report Final Report: Less than 100,000 colonies/mL (clinically insignificant growth based on current clinical standards) [facility] (MICHAEL) Comment:Testing performed by : [facility], [address] [facility], [place]., [address] Organism (CLINICALLY INSIGNIFICANT GROWTH [facility] (MICHAEL) Urine 10/16/2018 12:0 8 AM BEAUTY DIRECTOR 10/16/2018 3:39 AM BEAUTY DIRECTOR Narrative [facility] ([place]) - 10/16/2018 9:59 PM BEAUTY DIRECTOR Urine culture reflexed based upon urinalysis results. Testing performed by [facility] ([phone]) us Tyson Gore MD LAB MICROBIOLOGY - GENERAL O RDERABLES Final Result Performing Organization Address [facility] Co de Phone Number [facility] ([place]) [address] [facility] [place] [address] * (ABNORMAL) Urinalysis, microscopic only (10/16/2018 12:08 AM BEAUTY DIRECTOR) WBC, ur 21-50(A) 0 - 5 /HPF [facility] ([facility]) RBC, ur 0-5 0 - 5 /HPF [facility] ([place]) Epithelial cells, squamous, ur 1-5 0 - 5 /HPF [facility] ([place]) Bacteria, ur 1+(A) [facility] ([place]) Mucous, ur Present(A) [facility] ([place]) Calcium oxalate crystals, ur Trace(A) [facility] ([place]) Hyaline casts, ur 6-10 0 - 10 /LPF [facility] ([place]) Urine 10/16/2018 12:0 8 AM BEAUTY DIRECTOR 10/16/2018 12:21 AM BEAUTY DIRECTOR Narrative [facility] ([place]) - 10/16/2018 1:05 AM BEAUTY DIRECTOR us Tyson Gore MD LAB URINE ORDERABLES Final R esult Performing Organization Address [facility]/ZIP Co de Phone Number [facility] ([place]) [address] [facility] [place] [address] * (ABNORMAL) Urinalysis reflex to microscopic and culture Urine (10/16/2018 12:08 AM BEAUTY DIRECTOR) Color, ur Yellow Yellow [facility] ([place]) Clarity, ur Cloudy(A) Clear [facility] ([place]) Specific gravity, ur 1.020 1.010 - 1.025 [facility] ([place]) pH, urine 6.0 [facility] ([place]) Protein, ur ql Negative Negative [facility] ([place]) Glucose, ur ql Negative Negative [facility] ([place]) Ketones, ur Negative Negative [facility] ([place]) Bilirubin, ur Negative Negative [facility] ([place]) Blood, ur 2+(A) Negative [facility] ([place]) Urobilinogen, ur 1.0 mg/dL [facility] ([place]) Nitrite, ur Negative Negative [facility] ([place]) Leukocyte esterase, ur 2+(A) Negative [facility] ([place]) Urine 10/16/2018 12:0 8 AM BEAUTY DIRECTOR 10/16/2018 12:21 AM BEAUTY DIRECTOR Narrative [facility] ([facility]) - 10/16/2018 1:05 AM BEAUTY DIRECTOR ?? Urine pH is affected by diet, medications, systemic acid-base disturbances, and renal tubular function. ??pH may affect urinary stone formation. ??For example, urine pH below 6.0 may help reduce the tendency for calcium phosphate stones and pH greater than 6.0 may reduce the tendency for uric acid stone formation. Source: [employer]. Last revised 12-08-2017 us Tyson Gore MD LAB MICROBIOLOGY - GENERAL O RDERABLES Final Result [facility] ([place]EL) [address] [facility] Department [place] [address] documented in this encounter Visit Diagnoses Diagnosis Elevated blood pressure reading- Primary Elevated blood pressure reading without diagnosis of hypertension Hypertensive urgency documented in this encounter Administered Medications Inactive Administered Medications - up to 3 most recent administrations Medication Order MAR Action Action Date Dose Rate Site LORazepam (ATIVAN) injection 1 mg 1 mg, intravenous, Once, On 10/15/18 at 2357, For 1 dose, For IV administration, do not exceed a rate of 2 mg/minute Given 10/15/2018 12:05 AM BEAUTY DIRECTOR 1 mg pregabalin (LYRICA) capsule 50 mg 50 mg, oral, Once, On 10/15/18 at 2357, For 1 dose Given 10/16/2018 12:36 AM BEAUTY DIRECTOR 50 mg traMADol (ULTRAM) tablet 50 mg 50 mg, oral, Once, On 10/16/18 at 0039, For 1 dose Given 10/16/2018 12:41 AM BEAUTY DIRECTOR 50 mg documented in this encounter Active and Recently Administered Medications Times are shown in BEAUTY DIRECTOR. Scheduled Medication Order 10/14/2018 10/15/2018 10/16/2018 LORazepam (ATIVAN) injection 1 mg (COMPLETED) 1 mg, intravenous, Once, On 10/15/18 at 2357, For 1 dose, For IV administration, do not exceed a rate of 2 mg/minute 0005 (Given - Provider: Kaye Rodriges RN) pregabalin (LYRICA) capsule 50 mg (COMPLETED) 50 mg, oral, Once, On 10/15/18 at 2357, For 1 dose 0036 (Given - Provid er: Ela Fiore RN) traMADol (ULTRAM) tablet 50 mg (COMPLETED) 50 mg, oral, Once, On 10/16/18 at 0039, For 1 dose 0041 (Given - Provid er: Ela Fiore RN) documented in this encounter Orders Nursing Count Last Ordered Date First Orde red Date VITAL SIGNS 1 10/15/2018 IV Count Last Ordered Date First Orde red Date SALINE LOCK IV 1 10/15/2018 documented in this encounter Additional Health Concerns Infection Onset Date Last Indicated Resolved Time MRSA Comment:Backloaded September 16, 2011 05/28/2011 05/28/201106/28 5:00 AM CDT documented as of this encounter Care Teams Window And Door Installer Relationship Specialty Start Date End Date See Gonsalez MD PCP - General 10/15/18 02/14/21 documented as of this encounter
--- OUTSIDE RECORDS SUMMARY | 2024-11-30 00:27 | XMS_ITS | Encounter Summary ---
Author Organization [facility] Healthcare Address [address] [place] [address] Care Team Providers Care Police Communications Operator Name Role Phone See Gonsalez MD Primary Care Provider + Encounter Details Date Type Department Care Team (Latest Contact Info) Description 10/30/2018 3:19 AM ELEMENTARY SCHOOL LIBRARIAN - 10/30/2018 11:59 PM ELEMENTARY SCHOOL LIBRARIAN Hospital Encounter [facility] [address] [place] [address] Discharge Disposition: Discharge to home or self care Social History Tobacco Use Types Packs/Day Years Used Date Smoking Tobacco: Never Smokeless Tobacco: Never Alcohol Use Standard Drinks/Week Comments Yes 0 (1 standard drink = 0.6 oz pur e alcohol) rare Comments No Sex and Gender Information Value Date Recorded Sex Assigned at Not on file Legal Sex Female 1:47 AM ELEMENTARY SCHOOL LIBRARIAN Gender Identity Not on file Sexual Orientation Not on file documented as of this encounter Medications at Time of Discharge aspirin 81 mg tablet Take 81 mg by mouth daily. hydroCHLOROthiaz yahir (HYDRODIURIL) 12.5 mg tablet Take 1 tablet (12.5 mg total) by mouth daily. 30 tablet 1 11/02/2018 11/06/2018 losartan (COZAAR) 25 mg tablet Take 1 tablet (25 mg total) by mouth daily. 30 tablet 1 11/02/2018 11/06/2018 pregabalin (LYRICA) 50 mg capsule Take 1 capsule (50 mg total) by mouth 3 (three) times a day. 90 capsule 5 08/09/2018 11/01/2018 pregabalin (LYRICA) 50 mg capsule Take 2 capsules (100 mg total) by mouth 3 (three) times a day. 180 capsule 5 11/01/2018 11/01/2018 pregabalin (LYRICA) 50 mg capsule Take 1 capsule (50 mg total) by mouth 3 (three) times a day. 90 capsule 1 11/01/2018 02/16/2021 SUMAtriptan (IMITREX) 100 mg tablet Take 1 tablet (100 mg total) by mouth once as needed for migraine (headache) for up to 1 dose. May repeat one time after 2 hours if needed. 9 tablet 11 08/09/2018 11/06/2018 topiramate (TOPAMAX) 25 mg tablet Take 2 tablets (50 mg total) by mouth 2 (two) times a day. 120 tablet 08/02/2018 02/16/2021 traMADol (ULTRAM) 50 mg tablet Take 1 tablet (50 mg total) by mouth every 6 (six) hours as needed for pain. 20 tablet 07/30/2018 02/16/2021 documented as of this encounter Discharge Disposition Disposition Code Departure Means Destination Discharge to home or self care documented in this encounter Plan of Treatment Not on file documented as of this encounter Procedures Procedure Name Priority Date/Time Associated Diagnosis Comments XR CHEST 1 VIEW ED 10/30/2018 3:39 AM ELEMENTARY SCHOOL LIBRARIAN documented in this encounter Results * XR Chest 1 View (10/30/2018 3:39 AM ELEMENTARY SCHOOL LIBRARIAN) Anatomical Region Laterality Modality Body, Chest N/A Computed Radiogr aphy 10/30/2018 8:09 AM ELEMENTARY SCHOOL LIBRARIAN Impressions 10/30/2018 8:10 AM ELEMENTARY SCHOOL LIBRARIAN IMPRESSION: NO ACUTE PULMONARY CHANGE. Electronically signed by: Don Barkley M.D. Narrative 10/30/2018 8:10 AM ELEMENTARY SCHOOL LIBRARIAN RESULT: HISTORY: Chest pain EXAMINATION: XR CHEST 1 VIEW ORDER DATE: 10/30/2018 3:20 AM FINDINGS: There are small scattered parenchymal and perihilar granulomatous calcifications. The cardiac and mediastinal outlines are unremarkable. There are no pleural effusions or infiltrates. No significant abnormalities are noted in the spine or remainder of the bony thorax except for the healed displaced fracture of the right clavicle. Procedure Note Don Barkley MD - 10/30/2018 RESULT: HISTORY: Chest pain EXAMINATION: XR CHEST 1 VIEW ORDER DATE: 10/30/2018 3:20 AM FINDINGS: There are small scattered parenchymal and perihilar granulomatous calcifications. The cardiac and mediastinal outlines are unremarkable. There are no pleural effusions or infiltrates. No significant abnormalities are noted in the spine or remainder of the bony thorax except for the healed displaced fracture of the right clavicle. IMPRESSION: IMPRESSION: NO ACUTE PULMONARY CHANGE. Electronically signed by: Don Barkley M.D. Truong Rodriguez MD IMG XR PROCEDURES Final Res ult documented in this encounter Visit Diagnoses Not on filedocumented in this encounter Additional Health Concerns Infection Onset Date Last Indicated Resolved Time MRSA Comment:Backloaded September 16, 2011 05/28/2011 05/28/201106/28 5:00 AM CDT documented as of this encounter Care Teams Police Communications Operator Relationship Specialty Start Date End Date See Gonsalez MD PCP - General 10/15/18 02/14/21 documented as of this encounter
--- OUTSIDE RECORDS SUMMARY | 2024-11-30 00:27 | XMS_ITS | Encounter Summary ---
Author Organization [facility] Healthcare Address [address] [place] [address] Care Team Providers Care Terminal Gauger Supervisor Name Role Phone See Gonsalez MD Primary Care Provider + Zachary Driver MD Unavailable [phone] Jasbir Nielson MD Unavailable [phone] Reason for Visit * Reason Comments Chest Pain Encounter Details Date Type Department Care Team (Late st Contact Info) Description 11/07/2018 5:47 PM IMMIGRATION SPECIALIST - 11/07/2018 8:28 PM IMMIGRATION SPECIALIST Emergency [facility] Emergency Department [address] [place] [address] Discharge Disposition: Left without being seen Social History Tobacco Use Types Packs/Day Years Used Date Smoking Tobacco: Never Smokeless Tobacco: Never Alcohol Use Standard Drinks/Week Comments Yes 0 (1 standard drink = 0.6 oz pur e alcohol) rare Comments No Sex and Gender Information Value Date Recorded Sex Assigned at Not on file Legal Sex Female 1:47 AM IMMIGRATION SPECIALIST Gender Identity Not on file Sexual Orientation Not on file documented as of this encounter Last Filed Vital Signs Vital Sign Reading Time Taken Comments Blood Pressure 143/97 11/07/2018 6:12 PM IMMIGRATION SPECIALIST Pulse 91 11/07/2018 6:12 PM IMMIGRATION SPECIALIST Temperature 36.9 ??C (98.5 ??F) 11/07/2018 6:12 PM CS T Respiratory Rate 16 11/07/2018 6:12 PM IMMIGRATION SPECIALIST Oxygen Saturation 100% 11/07/2018 6:12 PM IMMIGRATION SPECIALIST Inhaled Oxygen Concentration - - Weight 79.4 kg (175 lb) 11/07/2018 6:12 PM IMMIGRATION SPECIALIST Height 170.2 cm (5' 7 ) 11/07/2018 6:12 PM IMMIGRATION SPECIALIST Body Mass Index 27.41 11/07/2018 6:12 PM IMMIGRATION SPECIALIST documented in this encounter Medications at Time of Discharge aspirin 81 mg tablet Take 81 mg by mouth daily. pregabalin (LYRICA) 50 mg capsule Take 1 [...] Discharge Disposition Disposition Code Departure Means Destination Left without being seen documented in this encounter ED Notes * Shelby Castro RN - 11/07/2018 6:09 PM CST Pt states chest pressure on and off since 1350 today. Pt states feeling like she is being squeezed and feeling palpitations and indigestion. GRATION SPECIALIST documented in this encounter Plan of Treatment Not on file documented as of this encounter Visit Diagnoses Not on filedocumented in this encounter Additional Health Concerns Infection Onset Date Last Indicated Resolved Time MRSA Comment:Backloaded September 16, 2011 05/28/2011 05/28/201106/28 5:00 AM CDT documented as of this encounter Care Teams Terminal Gauger Supervisor Relationship Specialty Start Date End Date See Gonsalez MD PCP - General 10/15/18 02/14/21 [place] [id number] [address] Consulting Physician Cardiovascular Disease 11/01/18 [place] [id number] [address] Consulting Physician Cardiovascular Disease 11/06/18 documented as of this encounter
--- OUTSIDE RECORDS SUMMARY | 2024-11-30 00:27 | XMS_ITS | Encounter Summary ---
Author Organization [facility] Healthcare Address [address] [place] [address] Care Team Providers Care Patrol Captain Name Role Phone See Gonsalez MD Primary Care Provider + Zachary Driver MD Unavailable [phone] Reason for Visit * Reason Comments Chest Pain Encounter Details Date Type Department Care Team (Latest Contact Info) Description 10/30/2018 2:40 AM CLAY ARTISAN - 11/01/2018 1:10 PM CLAY ARTISAN Hospital Encounter [facility] [address] [place] [address] [place] [id number] [facility] [address] [place] [address] [place] [id number] [id number] [place] [id number] [address] [id number] Chest pain, unspecified type (Primary Dx); Urinary tract infection without hematuria, site unspecified; Neuropathy (CMS/HCC) Discharge Disposition: Discharge to home or self care Social History Tobacco Use Types Packs/Day Years Used Date Smoking Tobacco: Never Smokeless Tobacco: Never Alcohol Use Standard Drinks/Week Comments Yes 0 (1 standard drink = 0.6 oz pur e alcohol) rare Comments No Sex and Gender Information Value Date Recorded Sex Assigned at Not on file Legal Sex Female 1:47 AM CLAY ARTISAN Gender Identity Not on file Sexual Orientation Not on file documented as of this encounter Last Filed Vital Signs Vital Sign Reading Time Taken Comments Blood Pressure 112/69 11/01/2018 11:25 AM CLAY ARTISAN Pulse 74 11/01/2018 11:25 AM CLAY ARTISAN Temperature 36.6 ??C (97.9 ??F) 11/01/2018 11:[address] Respiratory Rate 20 11/01/2018 11:25 AM CLAY ARTISAN Oxygen Saturation 100% 11/01/2018 11:25 AM CLAY ARTISAN Inhaled Oxygen Concentration - - Weight 77.2 kg (170 lb 3.1 oz) 10/30/2018 6:45 A M CLAY ARTISAN Height 170.2 cm (5' 7 ) 10/30/2018 2:46 PM CLAY ARTISAN Body Mass Index 26.66 10/30/2018 6:45 AM CLAY ARTISAN documented in this encounter Discharge Summaries * Laith Busch MD - 11/01/2018 11:18 AM CST Inpatient Discharge Summary BRIEF OVERVIEW Admitting Provider: Laith Busch MD Discharge Provider: Laith Busch MD Primary Care Physician at Discharge: See Gonsalez MD [phone] Admission Date: 10/30/2018 Discharge Date: 11/01/2018 Admission Location: [facility] Primary Discharge Diagnosis: Atypical chest pain DETAILS OF HOSPITAL STAY Presenting Problem/History of Present Illness: (as documented on 10/30) CHIEF COMPLAINT ?? Chief Complaint Patient presents with ??? Chest Pain ?? HPI Patient is a 28 y.o. female with past medical history of hypertension, anxiety, migraine headaches and peripheral neuropathy who presents to the emergency room due to chest pain, numbness and tingling. Patient reports last night while sitting she developed a sudden onset of numbness and tingling ofher entire body. She states her body felt warm and fuzzy and she felt dizzy. She states she was talking to her and she felt like she blanked out for approximately 30 seconds. She noted numbness and tingling on the right side of her face, head and the right side of her back. She states shelaid down and approximately 5 minutes later the episode occurred again. She also reports midsternalchest pain and she described it as a pressure type pain when she breathes in. She rates the pain as a 6/10. It is nonradiating. Of note, she has report complaint of chest pain during this interview. She also reports seeing intermittent flashing lights . She denies slurred speech, blurred vision, gait instability, shortness of breath, headache, fever, chills, abdominal pain, nausea, vomiting, constipation, diarrhea, or melena. According to the emergency room records she has states she was seen at the urgent care approximately 2 to 3 days ago and was diagnosed with urinary tract infection. Dueto the above this patient presents to the emergency room for evaluation. Hospital Course: Arrival Vitals [10/30/18 0241] Temp 36.8 ??C (98.2 ??F) Pulse 75 Resp 20 BP 155/95 SpO2 100 % FiO2 (%) 1. Atypical chest pain: Myocardial infarction ruled out. Cardiology consulted. Referred to the clinic for further evaluation, including possible outpatient stress test. 2. Hypertension: Continued Norvasc. Losartan and HCTZ added. W/up for secondary HTN to be completedin the Cardiology clinic 3. Numbness on the right side of face: Stroke ruled out. possibly due to peripheral neuropathy. Continued Lyrica. Neurology consulted. 4. Pain in the extremities: Unclear etiology. No overt signs of arterial insufficiency. No clinicalevidence of significant trauma. No edema or cellulitic process. She was initially placed on IV Dilaudid which was later discontinued. Continued tramadol p.r.n.. 5. Suspected UTI: Urine culture with insignificant bacterial growth. Ciprofloxacin was started but later dc'd.. 6. Migraine headaches: Continued Imitrex, tramadol, Tylenol p.r.n.. Test Results Pending at Discharge: Order Current Status [id number] - Miscellaneous Lab Test In process Discharge Details Physical Exam at Discharge: Discharge Condition: stable Pulse: 80 Resp: 20 BP: 109/77 Temp: 36.8 ??C (98.2 ??F) Weight: 77.2 kg (170 lb 3.1 oz) Pertinent Exam Findings at Discharge: Gen: In no apparent distress Neuro: Alert, oriented in time place and person. No facial asymmetry. No dysarthria or dysphonia. No limb weakness. Pulmonary: Not dyspneic. No crackles or rhonchi. Cardiovascular: HS 1, 2 . regular rhythm. No murmurs heard. No JVD, No lower extremity edema. GI: abdomen not distended, soft, non-tender. No palpble organ enlargements. Normal bowel sounds. Musculoskeletal: No joint swelling, tenderness or warmth. Skin: No rash ?? Discharge Disposition: Discharge to home or self care Code Status at Discharge: full code Discharge Instructions: Activity Instructions Discharge activity: Resume normal activity Diet Instructions Recommend low sodium diet. Limit sodium intake to 2300 mg per day. Recommend follow up with outpatient nutrition services at [phone]. Discharge Medications: Current Medications TAKE these medications amLODIPine 10 mg tablet Commonly known as: NORVASC Take 1 tablet (10 mg total) by mouth daily. aspirin 81 mg tablet Take 81 mg by mouth daily. hydroCHLOROthiazide 12.5 mg tablet Commonly known as: HYDRODIURIL Take 1 tablet (12.5 mg total) by mouth daily. Start taking on: 11/02/2018 losartan 25 mg tablet Commonly known as: COZAAR Take 1 tablet (25 mg total) by mouth daily. Start taking on: 11/02/2018 pregabalin 50 mg capsule Commonly known as: LYRICA Take 2 capsules (100 mg total) by mouth 3 (three) times a day. SUMAtriptan 100 mg tablet Commonly known as: IMITREX Take 1 tablet (100 mg total) by mouth once as needed for migraine (headache) for up to 1 dose. May repeat one time after 2 hours if needed. topiramate 25 mg tablet Commonly known as: TOPAMAX Take 2 tablets (50 mg total) by mouth 2 (two) times a day. traMADol 50 mg tablet Commonly known as: ULTRAM Take 1 tablet (50 mg total) by mouth every 6 (six) hours as needed for pain. Outpatient Follow-Up: No future appointments. Contact Information for Follow-ups primary care provider Next Steps: Follow up See Gonsalez MD Specialty: Internal Medicine Relationship: PCP - [facility] [place] [id number] [facility] [address] Next Steps: Follow up Zachary Driver MD Specialty: Cardiovascular Disease, Internal Medicine, Interventional Cardiology Relationship: Consulting Physician [id number] [facility] [id number] Next Steps: Follow up Instructions: see in 2 weeks Questions: Instructions for follow-up: see in 2 weeks DC TIME- 40 MIN ARTISAN documented in this encounter Discharge Instructions * Discharge Instr - Diet* Holly Sawant - 10/30/2018 2:52 PM CLAY ARTISAN Recommend low sodium diet. Limit sodium intake to 2300 mg per day. Recommend follow up with outpatient nutrition services at [phone]. ARTISAN documented in this encounter Medications at Time [...] Refills Last Filled Start Date End Date pregabalin (LYRICA) 50 mg capsule Take 1 capsule (50 mg total) by mouth 3 (three) times a day. 90 capsule 1 11/01/2018 hydroCHLOROthiazid e (HYDRODIURIL) 12.5 mg tablet Take 1 tablet (12.5 mg total) by mouth daily. 30 tablet 1 11/02/2018 8 losartan (COZAAR) 25 mg tablet Take 1 tablet (25 mg total) by mouth daily. 30 tablet 1 11/02/2018 8 pregabalin (LYRICA) 50 mg capsule Take 2 capsules (100 mg total) by mouth 3 (three) times a day. 180 capsule 5 11/01/2018 8 documented in this encounter Discharge Disposition Disposition Code Departure Means Destination Discharge to home or self care documented in this encounter Progress Notes * Anna Marie Pavon, OT - 11/01/2018 11:23 AM CST Occupational Therapy NOTE / SESSION TYPE: evaluation PATIENT'S NAME: Lorena Flores AGE / SEX: 28 y.o. / female [address]: [id number] : 1990 DATE: 11/01/18 TIME IN: 1119 TIME OUT: 1135 ORDER ACKNOWLEDGED (YES OR NO): yes Patient Active Problem List Diagnosis ??? Hypertensive urgency ??? Altered mental status Past Medical History: Diagnosis Date ??? Anxiety ??? Headache ??? HX OTHER MEDICAL Carpal tunnel syndrome ??? Hypertension ??? Migraine ??? Peripheral neuropathy Past Surgical History: Procedure Laterality Date ??? BREAST BIOPSY ??? CERVICAL BIOPSY W/ LOOP ELECTRODE EXCISION ??? OTHER SURGICAL HISTORY Carpal tunnel syndrome: Vicodin and Tramadol ADDITIONAL SIGNIFICANT MEDICAL INFORMATION: CC of chest pain, numbness and tingling PRECAUTIONS (INCLUDING WEIGHT-BEARING): contact isolation CAREGIVER PRESENT (YES OR NO): no VITAL SIGNS: Vital signs stable throughout evaluation, with no complaints of dizziness, lightheadedness or SOB. 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 PATIENT / FAMILY GOAL(S): none stated COGNITION / ORIENTATION: PATIENT ORIENTED TO: Person, Place, Time, Situation PATIENT NOT ORIENTED TO: n/a FOLLOWING COMMANDS: 100% COMMUNICATION: wfl GENERAL OBSERVATIONS: pleasant, cooperative UE ROM / STRENGTH / COORDINATION: (A)ROM - RIGHT: WFL STRENGTH - RIGHT: 5/5 grossly (A)ROM - LEFT: WFL STRENGTH - LEFT: 5/5 grossly HAND DOMINANCE: Right BILL PEDDLER STRENGTH (RIGHT): good BILL PEDDLER STRENGTH (LEFT): good COORDINATION: serial opposition intact bilaterally BALANCE: STATIC SITTING: indep DYNAMIC SITTING: indep STATIC STANDING: indep DYNAMIC STANDING: indep MOBILITY / TRANSFERS: BED MOBILITY (COMPONENTS & ASSIST): TRANSFER(S): sit<>stand indep, bed>bed indep LIVING SKILLS: UE DRESSING (OVERALL ASSIST LEVEL): indep COMPONENTS PERFORMANCE: 03/01 ITEM: doff/don robe LOCATION: eob/standing LE DRESSING (OVERALL ASSIST LEVEL): indep COMPONENTS PERFORMANCE: 09/06 ITEM: doff/don socks/underwear LOCATION: eob/standing THERAPY PLAN: REHAB POTENTIAL (PROGNOSIS): good OT RECOMMENDATIONS: LOCATION: home SUPERVISION: none FOLLOW-UP THERAPY RECOMMENDATIONS: none BARRIERS TO DISCHARGE: none EDUCATION PROVIDED: Role of OT, Safety, Precautions INTERVENTIONS / EDUCATION NEEDS: evaluation only FREQUENCY OF THERAPY: one-time visit SHORT TERM GOALS: No goals created this date, pt at baseline/independent level of functioning. CONSIDER THIS THE DISCHARGE SUMMARY. Anna Marie Jones??BRAULIO Munguia/Natalio 11/01/18 11:34 AM ARTISAN * Loren Whitaker NP - 11/01/2018 11:19 AM CST Daily Progress SUBJECTIVE: Ms. Flores is sitting up in the bed, no chest pain or sob. OBJECTIVE: Vitals: 11/01/18 0001 11/01/18 0400 11/01/18 0401 11/01/18 0821 BP: 103/68 109/77 BP Location: Left arm Left arm Patient Position: Pulse: 69 88 88 80 Resp: 20 20 Temp: 37.2 ??C (98.9 ??F) 36.8 ??C (98.2 ??F) TempSrc: Oral Oral SpO2: 100% 100% Weight: Height: Intake/Output Summary (Last 24 hours) at 11/01/18 1119 Last data filed at 10/31/18 1907 Gross per 24 hour Intake 360 ml Output 0 ml Net 360 ml Scheduled Medications Medication Dose Route Frequency ??? amLODIPine (NORVASC) tablet 10 mg 10 mg oral Daily ??? aspirin enteric coated tablet 81 mg 81 mg oral Daily ??? enoxaparin (LOVENOX) syringe 40 mg 40 mg subcutaneous Daily-2100 ??? hydroCHLOROthiazide (HYDRODIURIL) tablet 12.5 mg 12.5 mg oral Daily ??? losartan (COZAAR) tablet 25 mg 25 mg oral Daily ??? pregabalin (LYRICA) capsule 50 mg 50 mg oral TID ??? topiramate (TOPAMAX) tablet 50 mg 50 mg oral BID LABS: Recent Labs Lab Units 10/31/18 0523 WBC K/cumm 9.3 HEMOGLOBIN g/dL 11.9 HEMATOCRIT % 38.2 PLATELETS K/cumm 277 Recent Labs Lab Units 10/31/18 0523 10/30/18 0303 SODIUM mmol/L 138 -- 137 POTASSIUM PLASMA mmol/L 3.9 -- 3.0* CHLORIDE mmol/L 110 -- 109 CO2 mmol/L 21* -- 21* ANIONGAP mmol/L 11 -- 10 GLUCOSE mg/dL 109 -- 136 POC GLUCOSE MONITOR -- < > -- BUN SERUM mg/dL 10 -- 8 CREATININE mg/dL 0.80 -- 0.72 CALCIUM mg/dL 8.8 -- 8.8 ALBUMIN g/dL -- -- 3.6 ALK PHOS Units/L -- -- 75 ALT Units/L -- -- 14 AST Units/L -- -- 20 BILIRUBIN TOTAL mg/dL -- -- 0.50 < > = values in this interval not displayed. Recent Labs Lab Units 10/31/18 0523 CHOLESTEROL mg/dL 118 TRIGLYCERIDES mg/dL 83 HDL mg/dL 29* Lab Results Component Value Date BNP 10 10/30/2018 Lab Results Component Value Date TROPONINI <0.03 10/31/2018 TROPONINI <0.03 10/30/2018 TROPONINI <0.03 10/30/2018 Exam General: in no apparent distress and well developed and well nourished Neuro: Alert and oriented x 3, moves all extremities well HEENT: normocephalic, atraumatic, Lungs: symmetric, unlabored, clear to auscultation bilaterally Heart: S1,S2, regular rate & rhythm, no murmurs, rubs, or gallops Abdomen: soft, non-tender, non-distended, bowel sounds present Extremities: no LE edema, palpable peripheral pulses BL ASSESSMENT/PLAN: 1. Hypertension- patient has a known history of hypertension she is currently on Norvasc, losartan 25 mg daily and 12.5 mg of hydrochlorothiazide daily with improved BP control. 1. In regards to testing ??I think she will benefit from having a renal artery Doppler done to exclude renal artery hypertension secondary to renal artery stenosis or fibromuscular dysplasia. ?? 2. Additionally this surging of blood pressure seems to be a unique factor in her and this may be related to chemical imbalance causes such as pheochromocytoma or carcinoid as she describes an overwhelming sensation and seems to go through her body. ??We worthwhile getting urinary metanephrines to e valuate as well as a 24 hr urine collection. ??As well as serum 5 HIAA. ?? 3. Echocardiogram was essentially normal with no left ventricular hypertrophy she can ??get an outpatient stress test ?? 2. Chest pains- I doubt that she actually has ischemic heart disease because her troponins are negative her EKGs are variable in their presentation there is no definitive evidence of ongoing infarction I am wondering whether she has Prinzmetal's variant angina which may be associated with coronary vasospasm as she has a history of migraine headaches since enzymes are negative she can have an outpatient stress test ?? 3. TSH was noted to be 2.52??she was concerned about that since some of her family members have hadthyroid issues she experience palpitations and was worried about an arrhythmia will get an outpatient Holter monitor or a mobile tele monitor for her to wear ?? 4. Headaches-history of migraine headaches she has been on Topamax and sumatriptan these may be suggestive that she has vasospastic component to her chest pain as well she has tentatively been scheduled for an MRI of the head however think would be worthwhile for her to get seen by Neurology may be worthwhile doing EEG ?? She can follow-up with Dr Driver at [facility]??in roughly 2 weeks I would like her to be able to have ofblood pressures that will be checked at home so that we can determine if there is any pattern of elevated blood pressure so the timings of medications can be adjusted Loren Whitaker NP, MSN, ANP-[facility] 11/01/2018 11:19 AM ARTISAN * Laith Busch MD - 10/31/2018 5:49 PM CST General Medicine Daily Progress Patient is a 28 y.o. female who presented with a chief complaint of chest pain and paresthesia. Interval History: No acute issues overnight Subjective: Reports intermittent episodes of numbness and tingling in her extremities. Objective: Vitals: 24hr Min/Max: Temp Min: 36.6 ??C (97.8 ??F) Max: 37.4 ??C (99.4 ??F) Pulse Min: 66 Max: 92 BP Min: 101/69 Max: 118/82 Resp Min: 16 Max: 20 SpO2 Min: 99 % Max: 100 % Most Recent : Vitals: 10/31/18 0400 10/31/18 0800 10/31/18 1200 10/31/18 1600 BP: 109/61 113/69 101/69 118/82 BP Location: Right arm Right arm Right arm Left arm Patient Position: Lying Pulse: 70 66 75 88 Resp: 16 20 16 20 Temp: 36.7 ??C (98.1 ??F) 36.6 ??C (97.8 ??F) 37.1 ??C (98.7 ??F) 37.4 ??C (99.4 ??F) TempSrc: Oral Axillary Oral Oral SpO2: 100% 100% 100% 99% Weight: Height: I/O last 2 completed shifts: In: 120 [P.O.:120] Out: 200 [Urine:200] I/O this shift: In: 120 [P.O.:120] Out: - Physical Exam: Gen: In no apparent distress Neuro: Alert, oriented in time place and person. No facial asymmetry. No dysarthria or dysphonia. No limb weakness. Pulmonary: Not dyspneic. No crackles or rhonchi. Cardiovascular: HS 1, 2 . regular rhythm. No murmurs heard. No JVD, No lower extremity edema. GI: abdomen not distended, soft, non-tender. No palpble organ enlargements. Normal bowel sounds. Musculoskeletal: No joint swelling, tenderness or warmth. Skin: No rash Current Meds: amLODIPine 10 mg oral Daily aspirin 81 mg oral Daily ciprofloxacin 500 mg oral BID enoxaparin 40 mg subcutaneous Daily-2100 hydroCHLOROthiazide 12.5 mg oral Daily losartan 25 mg oral Daily pregabalin 50 mg oral TID topiramate 50 mg oral BID Lab/Radiology/Diagnostic Review: Recent Labs Lab Units 10/31/18 0510/30/18 0303 WBC K/cumm 9.3 10.0* HEMOGLOBIN g/dL 11.9 11.9 HEMATOCRIT % 38.2 37.2 PLATELETS K/cumm 277 301 Recent Labs Lab Units 10/31/18 0510/30/18 0727 10/30/18 0303 SODIUM mmol/L 138 -- 137 POTASSIUM PLASMA mmol/L 3.9 -- 3.0* CHLORIDE mmol/L 110 -- 109 CO2 mmol/L 21* -- 21* ANIONGAP mmol/L 11 -- 10 GLUCOSE mg/dL 109 -- 136 POC GLUCOSE MONITOR mg/dL -- 88 -- BUN SERUM mg/dL 10 -- 8 CREATININE mg/dL 0.80 -- 0.72 CALCIUM mg/dL 8.8 -- 8.8 ALBUMIN g/dL -- -- 3.6 ALK PHOS Units/L -- -- 75 ALT Units/L -- -- 14 AST Units/L -- -- 20 BILIRUBIN TOTAL mg/dL -- -- 0.50 Recent Labs Lab Units 10/30/18 0303 ALK PHOS Units/L 75 BILIRUBIN TOTAL mg/dL 0.50 TOTAL PROTEIN g/dL 6.7 Recent Labs Lab Units 10/31/18 0523 CHOLESTEROL mg/dL 118 TRIGLYCERIDES mg/dL 83 HDL mg/dL 29* Recent Labs Lab Units 10/30/18 0303 INR 1.23* Lab Results Component Value Date BNP 10 10/30/2018 Lab Results Component Value Date TROPONINI <0.03 10/31/2018 TROPONINI <0.03 10/30/2018 TROPONINI <0.03 10/30/2018 Recent Labs Lab Units 10/30/18 0400 COLOR U Yellow CLARITY U Cloudy* SPEC GRAV U 1.011 PH, URINE 7.0 PROTEIN UR QL Negative GLUCOSE URQL Negative KETONES UR Negative BLOOD UR Negative NITRITE UR Negative LEUKOCYTE ESTERASE UR 3+* Estimated Creatinine Clearance: 100 mL/min (by C-G formula based on SCr of 0.8 mg/dL). Patient Active Problem List Diagnosis Date Noted ??? Hypertensive urgency 10/16/2018 Assessment/Plan: 1. Atypical chest pain: Myocardial infarction ruled out. Cardiology consulting. Possible outpatientstress test after discharge. 2. Hypertension: Patient being worked up to rule out secondary causes including pheochromocytoma and renal artery stenosis. Renal Doppler ultrasound will be ordered as an outpatient. 24 hr urine collection for catecholamines is in progress. Continue Norvasc. Losartan and HCTZ added. 3. Numbness on the right side of face: Stroke ruled out. ? Due to peripheral neuropathy. Continue Lyrica. Neurology consulted. 4. Pain in the extremities: Unclear etiology. No overt signs of arterial insufficiency. No clinicalevidence of significant trauma. No edema or cellulitic process. DC IV Dilaudid. Continue tramadol p.r.n.. 5. Suspected UTI: Urine culture with insignificant bacterial growth. DC ciprofloxacin. 6. Migraine headaches: Continue Imitrex, tramadol, Tylenol p.r.n.. 7. Hypokalemia: Resolved. 8. DVT prophylaxis 9. Possible discharge tomorrow. Laith Busch MD [facility] Pager #: [phone] ARTISAN * Alison Nesbitt RN - 10/31/2018 1:56 PM CST Met with pt at bedside for discharge planning. Demographics verified via face sheet. Pt lives at home with her /critical care cns, Geraldo and her goal is to return home upon discharge with no new needs. Pt is independent with ADLs and houshold duties. Pt still works and drives. [facility] [place], no medication issues. Pt is interested in med to bed program, CM explained and informed RN of above. Pts primary physician is Dr Gonsalez. No anticipated discharge needs at this time. CM will continue to follow and assist with discharge planning as needed. 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 Flores denies any chest pain, sob or visual changes INTERIM CHANGE PAST 24 HOURS: Improved BP control Full ROS negative OBJECTIVE: Vitals: 10/30/18 2000 10/31/18 0000 10/31/18 0400 10/31/18 0800 BP: 106/64 103/57 109/61 113/69 BP Location: Right arm Right arm Right arm Right arm Patient Position: Sitting Lying Lying Pulse: 92 88 70 66 Resp: 16 16 16 20 Temp: 36.7 ??C (98 ??F) 36.7 ??C (98 ??F) 36.7 ??C (98.1 ??F) 36.6 ??C (97.8 ??F) TempSrc: Axillary Oral Oral Axillary SpO2: 100% 100% 100% 100% Weight: Height: I/O last 2 completed shifts: In: 120 [P.O.:120] Out: 200 [Urine:200] No intake/output data recorded. Physical Exam LABS: Recent Results (from the past 48 hour(s)) ECG 12 lead Collection Time: 10/30/18 2:47 AM Result Value Ref Range Patient age 28 years Interpretation Text SINUS RHYTHMNONSPECIFIC T-WAVE ABNORMALITYBORDERLINE ECGNO PREVIOUS TRACING Ventricular Rate EKG/Min 72 /min P Wave Duration 132 ms QRS-Interval (MSEC) 89 ms IA-Interval (MSEC) 160 ms QT Interval 330 ms QTc 351 ms QTC Interval ms P Dixon 51 deg QRS Dixon 9 deg T Dixon -4 deg CBC with auto differential Collection Time: 10/30/18 3:03 AM Result Value Ref Range WBC 10.0 (H) 3.8 - 9.9 K/cumm Hgb 11.9 11.9 - 15.5 g/dL Hct 37.2 35.6 - 45.5 % Plt 301 150 - 400 K/cumm MPV 9.3 9.1 - 12.3 fL RBC 4.10 3.90 - 5.20 M/cumm MCV 90.7 81.3 - 96.4 fL MCH 29.0 27.1 - 33.3 pg MCHC 32.0 (L) 32.3 - 35.7 g/dL RDW CV 12.5 11.1 - 14.9 % RDW SD 41.3 35.7 - 48.1 fL NRBC Abs 0.00 0.00 - 0.01 K/cumm Comprehensive metabolic panel Collection Time: 10/30/18 3:03 AM Result Value Ref Range Sodium 137 135 - 145 mmol/L Potassium, pl 3.0 (L) 3.5 - 5.1 mmol/L Chloride 109 100 - 114 mmol/L CO2 21 (L) 22 - 32 mmol/L Anion Gap 10 8 - 16 mmol/L BUN 8 8 - 24 mg/dL Creatinine 0.72 0.60 - 1.30 mg/dL Glucose 136 70 - 199 mg/dL Calcium 8.8 8.4 - 10.5 mg/dL Bilirubin, total 0.50 0.10 - 1.30 mg/dL Protein, pl 6.7 6.0 - 8.3 g/dL Albumin 3.6 3.2 - 4.8 g/dL Alk phos 75 30 - 110 Units/L ALT 14 1 - 45 Units/L AST 20 7 - 40 Units/L Troponin I Collection Time: 10/30/18 3:03 AM Result Value Ref Range Troponin I <0.03 0.00 - 0.14 ng/mL Differential, auto Collection Time: 10/30/18 3:03 AM Result Value Ref Range Neutrophil absolute 6.6 (H) 1.7 - 6.5 K/cumm Immature granulocyte absolute 0.0 0.0 - 0.1 K/cumm Lymphocytes absolute 2.6 0.8 - 3.3 K/cumm Monocyte absolute 0.6 0.2 - 0.8 K/cumm Eosinophils absolute 0.2 0.0 - 0.5 K/cumm Basophils, abs 0.0 0.0 - 0.1 K/cumm Neutrophils 65.8 % Immature granulocytes 0.5 % Lymphocytes 25.7 % Monocytes 5.5 % Eosinophils 2.1 % Basophils 0.4 % Amylase Collection Time: 10/30/18 3:03 AM Result Value Ref Range Amylase 46 35 - 100 Units/L Lipase Collection Time: 10/30/18 3:03 AM Result Value Ref Range Lipase 36 20 - 50 Units/L B-type natriuretic peptide Collection Time: 10/30/18 3:03 AM Result Value Ref Range B-Type Natriuretic Peptide (BNP) 10 0 - 100 pg/mL Protime-INR Collection Time: 10/30/18 3:03 AM Result Value Ref Range PT 13.9 (H) 9.5 - 13.0 sec INR 1.23 (H) 0.90 - 1.20 eGFR Collection Time: 10/30/18 3:03 AM Result Value Ref Range GFR 112 mL/min/1.73 m2 Hemoglobin A1c Collection Time: 10/30/18 3:03 AM Result Value Ref Range Hgb A1C 5.7 4.0 - 6.0 % Estimated Average Glucose 117 mg/dL Urinalysis reflex to microscopic and culture Urine, bladder Collection Time: 10/30/18 4:00 AM Result Value Ref Range Color, ur Yellow Yellow Clarity, ur Cloudy (A) Clear Specific gravity, ur 1.011 1.010 - 1.025 pH, urine 7.0 Protein, ur ql Negative Negative Glucose, ur ql Negative Negative Ketones, ur Negative Negative Bilirubin, ur Negative Negative Blood, ur Negative Negative Urobilinogen, ur <2.0 <2.0 mg/dL Nitrite, ur Negative Negative Leukocyte esterase, ur 3+ (A) Negative Urinalysis, microscopic only Collection Time: 10/30/18 4:00 AM Result Value Ref Range WBC, ur 21-50 (A) 0 - 5 /HPF RBC, ur 6-10 (A) 0 - 5 /HPF Epithelial cells, squamous, ur 1-5 0 - 5 /HPF Yeast, ur 4+ (A) Mucous, ur Present (A) Urine culture Collection Time: 10/30/18 4:00 AM Result Value Ref Range Report Final Report: Less than 100,000 colonies/mL (clinically insignificant growth based on current clinical standards) Organism (CLINICALLY INSIGNIFICANT GROWTH POCT glucose Collection Time: 10/30/18 7:27 AM Result Value Ref Range Glucose, POC, bld 88 70 - 199 mg/dL ECG 12 lead Collection Time: 10/30/18 8:40 AM Result Value Ref Range Patient age 28 years Interpretation Text SINUS RHYTHMST DEVIATION AND MODERATE T-WAVE ABNORMALITY, CONSIDER ANTEROLATERAL ISCHEMIAABNORMAL ECGPREVIOUS TRACIN10/30/2018 02.47 Ventricular Rate EKG/Min 62 /min P Wave Duration 131 ms QRS-Interval (MSEC) 86 ms IA-Interval (MSEC) 157 ms QT Interval 379 ms QTc 382 ms QTC Interval ms P Dixon 47 deg QRS Dixon 18 deg T Dixon -18 deg Troponin I Collection Time: 10/30/18 8:47 AM Result Value Ref Range Troponin I <0.03 0.00 - 0.14 ng/mL Troponin I Collection Time: 10/30/18 11:54 AM Result Value Ref Range Troponin I <0.03 0.00 - 0.14 ng/mL D-dimer, quantitative Collection Time: 10/30/18 11:54 AM Result Value Ref Range D-dimer 305 (H) 150 - 230 ng/mL D-DU ECG 12 lead Collection Time: 10/30/18 1:20 PM Result Value Ref Range Patient age 28 years Interpretation Text SINUS RHYTHMNONSPECIFIC ST & T-WAVE ABNORMALITYBORDERLINE ECGPREVIOUS TRACIN10/30/2018 08.40 Ventricular Rate EKG/Min 75 /min P Wave Duration 131 ms QRS-Interval (MSEC) 78 ms IA-Interval (MSEC) 158 ms QT Interval 366 ms QTc 392 ms QTC Interval ms P Dixon 56 deg QRS Dixon 42 deg T Dixon -10 deg Troponin I Collection Time: 10/30/18 4:00 PM Result Value Ref Range Troponin I <0.03 0.00 - 0.14 ng/mL Troponin I Collection Time: 10/30/18 6:12 PM Result Value Ref Range Troponin I <0.03 0.00 - 0.14 ng/mL Troponin I Collection Time: 10/31/18 5:23 AM Result Value Ref Range Troponin I <0.03 0.00 - 0.14 ng/mL Lipid panel Collection Time: 10/31/18 5:23 AM Result Value Ref Range Cholesterol 118 30 - 199 mg/dL Triglycerides 83 <=149 mg/dL HDL 29 (L) >=40 mg/dL LDL, calculated 72 <=129 mg/dL Non-HDL Cholesterol 89 mg/dL Chol/HDL ratio 4 CBC with auto differential Collection Time: 10/31/18 5:23 AM Result Value Ref Range WBC 9.3 3.8 - 9.9 K/cumm Hgb 11.9 11.9 - 15.5 g/dL Hct 38.2 35.6 - 45.5 % Plt 277 150 - 400 K/cumm MPV 9.4 9.1 - 12.3 fL RBC 4.10 3.90 - 5.20 M/cumm MCV 93.2 81.3 - 96.4 fL MCH 29.0 27.1 - 33.3 pg MCHC 31.2 (L) 32.3 - 35.7 g/dL RDW CV 12.7 11.1 - 14.9 % RDW SD 43.5 35.7 - 48.1 fL NRBC Abs 0.00 0.00 - 0.01 K/cumm Basic metabolic panel Collection Time: 10/31/18 5:23 AM Result Value Ref Range Sodium 138 135 - 145 mmol/L Potassium, pl 3.9 3.5 - 5.1 mmol/L Chloride 110 100 - 114 mmol/L CO2 21 (L) 22 - 32 mmol/L Anion Gap 11 8 - 16 mmol/L BUN 10 8 - 24 mg/dL Creatinine 0.80 0.60 - 1.30 mg/dL Glucose 109 70 - 199 mg/dL Calcium 8.8 8.4 - 10.5 mg/dL TSH Collection Time: 10/31/18 5:23 AM Result Value Ref Range Thyroid Stimulating Hormone 1.42 0.45 - 5.33 mcIUnit/mL Differential, auto Collection Time: 10/31/18 5:23 AM Result Value Ref Range Neutrophil absolute 4.8 1.7 - 6.5 K/cumm Immature granulocyte absolute 0.0 0.0 - 0.1 K/cumm Lymphocytes absolute 3.6 (H) 0.8 - 3.3 K/cumm Monocyte absolute 0.6 0.2 - 0.8 K/cumm Eosinophils absolute 0.3 0.0 - 0.5 K/cumm Basophils, abs 0.0 0.0 - 0.1 K/cumm Neutrophils 51.6 % Immature granulocytes 0.4 % Lymphocytes 38.3 % Monocytes 6.4 % Eosinophils 3.0 % Basophils 0.3 % eGFR Collection Time: 10/31/18 5:23 AM Result Value Ref Range GFR 99 mL/min/1.73 m2 RADIOLOGY: Xr Chest Pa Lateral 2 Views Result Date: 10/16/2018 Narrative: XR CHEST PA LATERAL 2 VIEWS HISTORY: chest pressure. Hypertension. Dizziness. COMPARISON: 10/29/2015 FINDINGS: PA frontal and lateral projections are obtained. The lungs are clear bilaterally with no focal infiltrates. The heart size and pulmonary vascularity are normal. Impression: NO ACTIVE CARDIOPULMONARY DISEASE. Electronically signed by: Carmelo Clay M.D. Ct Head Wo Contrast Result Date: 10/30/2018 Narrative: EXAM: CT head without contrast DATE: 10/30/2018 3:25 AM CLINICAL HISTORY: Numbness and tingling to the right side of the face. TECHNIQUE: Computed tomographic images of the head were obtained in the axial plane in both brain and bone windows without the administration of contrast. Comparison date is 07/31/2018 Findings: The cerebrum, cerebellum and brainstem are normal with normal payne-white differentiation. The ventricles and basilar cisterns are normal. The midline structures are normal. There is no evidence of acute or evolving infarct, contusion or intracranial hemorrhage. The visible paranasal sinuses and mastoid air cells are clear. There is no acute or healing skull fracture. Impression: No acute intracranial process. Electronically signed by: Nicholas Gonzales M.D. Xr Chest 1 View Result Date: 10/30/2018 Narrative: RESULT: HISTORY: Chest pain EXAMINATION: XR CHEST 1 VIEW ORDER DATE: 10/30/2018 3:20 AM FINDINGS: There are small scattered parenchymal and perihilar granulomatous calcifications. The cardiac and mediastinal outlines are unremarkable. There are no pleural effusions or infiltrates. No significant abnormalities are noted in the spine or remainder of the bony thorax except for the healed displaced fracture of the right clavicle. Impression: IMPRESSION: NO ACUTE PULMONARY CHANGE. Electronically signed by: Don Barkley M.D. Transthoracic Echo Complete W Doppler/cf Result Date: 10/30/2018 Narrative: [place] [address] Echocardiogram Report Patient Name: LORENA FLORES S : 1990 Study Date: 10/30/2018 3:48:58 PM Gender: F Tech: NA Location: [id number] Ref.Physician: KATHLEEN WATTERS Height(Cm): 170 BSA: 1.91 Weight(Kg): 77 Heart Rate: 82 BP: 111/74 Quality: Good Order Physician: Jn NOGUERA Procedures: Echocardiographic Report: Transthoracic echocardiogram with 2D, M-Mode, and color Doppler examination with saline contrast study. Indications: Stroke. Measurements: 2D/M Mode Doppler Measurement Value Normal Range Measurement Value Normal Range EF Teich 2D69.6 [ 55.0 - 70.0 ] percent CONRADO Vmax 3.22 [ 2.00 - 4.00 ] cm2 EF Mod 4C 65.2 [ 55.0 - 70.0 ] percent AV Mean PG 4 [ 2 - 4 ] mmHg LVIDd 2D 4.63 [ 3.90 - 5.30 ] cm AV Peak Jad 1.43 [ 1.00 - 1.70 ] m/sLVIDs 2D 2.82 [ 2.30 - 3.90 ] cm AV VTI 28.20 cm LVPWd 2D 0.83 [ 0.60 - 1.00 ] cm LVOT Diam 2.21 [ 1.70 - 2.10 ] cm IVSd 2D 0.74 [ 0.60 - 0.90 ] cm LVOT Peak Jad 1.21 [ 0.70 - 1.10 ] m/s LA DimensionMM 3.34 [ 2.70 - 3.80 ] cm LVOT VTI 24.62 [ 20.00 - 30.00 ] cm AoR Diam MM 3.22 [ 2.60 - 3.70 ] cmMV E Peak Jda 0.79 [ 0.60 - 1.30 ] m/s ACS MM 2.73 cm MV A Peak Jad 0.59 [ 1.00 - 1.20 ] m/s MV PHT 62 [ 20 - 100 ] msec MV Decel Time 239 [ 104 - 258 ] msec PV Peak Jad 0.78 [ 0.40 - 0.80 ] m/s E'0.10 E/E' 9.00 Findings: Atrial Septum: Normal atrial septum. Left Ventricle: Normal left ventricular systolic function with no focal wall motion abnormalities. Normal left ventricular wall thickness. Normal left ventricular diastolic function. Ejection fraction is measured at 65 %. Left Atrium: The left atrium is normal in size. Right Ventricle: Normal right ventricular size. Normal right ventricular systolic function. Right Atrium: The right atrium is normal in size. Aortic Valve: Normal structure of the aortic valve. Mitral Valve: Normal structure of the mitral valve. Trivial regurgitationof the mitral valve. Pulmonic Valve: Normal structure of the pulmonic valve. Tricuspid Valve: Normal structure of the tricuspid valve. Normal right ventricular systolic pressure. Trivial regurgitation in the tricuspid valve. Pericardium: Normal pericardium with no significant pericardial effusion. Aorta: Normal aortic root. IVC: Normal size and normal respiratory collapse consistent with normal right atrial pressure (<5 mmHg). Pulmonary Artery: Normal pulmonary artery size. Conclusions: Technically difficult study with limited views. Normal 2D/Doppler-echocardiographic study with normal left ventricular function and no significant valvular abnormalities. Electronically Signed By: Amisha David MD 2018-10-30 21:26:47 CLAY ARTISAN CC: CC: Mra Head Wo Contrast Result Date: 10/30/2018 Narrative: RESULT: Examination: MRA HEAD WO CONTRAST Date: 10/30/2018 2:30 PM Clinical History: Numbness and tingling to right side of face. Hypertension. Technique: MRA Brain obtained using 3D TOF technique centered at the [place]. Comparison:None. Findings: The intradural segment of the vertebral arteries, basilar and posterior cerebral are patent bilaterally. No segment stenosis is seen. The intracranial internal carotid artery is widely patent on both sides. The anterior cerebral from A1 to A2 segment is unremarkable. The MCA from M1 to M2 segment branches seen are patent following exception. There is mild attenuation of the left precentral branch seen only in the coronal MIPS re construction which may represent stenosis or artifact. There is no [place] aneurysm. Patent anterior and left posterior communicating artery noted Impression: MILD ASYMMETRY LEFT PRECENTRAL MCA BRANCH OTHERWISE UNREMARKABLE MRA BRAIN. Electronically signed by: Angeli Peralta M.D. Mri Brain Wo Contrast Result Date: 10/30/2018 Narrative: Exam: MRI BRAIN WITHOUT CONTRAST: Clinical history: Numbness and tingling right side of face. Stroke protocol. TECHNIQUE: MRI brain obtained using multiplanar multisequence images : COMPARISON: CT head 10/30/2018. FINDINGS: The ventricles sulci and cisterns are within normal limits for ag e.There is no parenchymal lesion..No midline shift mass effect or extra-axial collection is seen. No abnormal intracranial enhancement is seen.. No diffusion restriction noted to suggest acute infarct..No evidence for acute hemorrhage is seen on available sequences..Flow voids are seen in the basilar, cavernous internal carotid arteries, and superior sagittal sinus. The cerebellar tonsils are normally positioned. The orbits are unremarkable.. The pituitary is not enlarged.. The visualized sinuses and mastoids are clear..Calvarial marrow signal is unremarkable.. Impression: UNREMARKABLE MRI BRAIN. NO ACUTE INTRACRANIAL PATHOLOGY. Electronically signed by: Angeli Peralta M.D. EKG: Results for orders placed during the hospital encounter of 10/30/18 ECG 12 lead ASSESSMENT/PLAN: 1. Hypertension- patient has a known history of hypertension she is currently on Norvasc, losartan 25 mg daily and 12.5 mg of hydrochlorothiazide daily with improved BP control. 1. In regards to testing I think she will benefit from having a renal artery Doppler done to exclude renal artery hypertension secondary to renal artery stenosis or fibromuscular dysplasia. 2. Additionally this surging of blood pressure seems to be a unique factor in her and this may be related to chemical imbalance causes such as pheochromocytoma or carcinoid as she describes an overwhelming sensation and seems to go through her body. We worthwhile getting urinary metanephrines to mine shane as well as a 24 hr urine collection. As well as serum 5 HIAA. 3. Echocardiogram was essentially normal with no left ventricular hypertrophy she can get an outpatient stress test ?? 2. Chest pains- I doubt that she actually has ischemic heart disease because her troponins are negative her EKGs are variable in their presentation there is no definitive evidence of ongoing infarction I am wondering whether she has Prinzmetal's variant angina which may be associated with coronary vasospasm as she has a history of migraine headaches since enzymes are negative she can have an outpatient stress test ?? 3. TSH was noted to be 2.52 she was concerned about that since some of her family members have had thyroid issues she experience palpitations and was worried about an arrhythmia will get an outpatient Holter monitor or a mobile tele monitor for her to wear ?? 4. Headaches-history of migraine headaches she has been on Topamax and sumatriptan these may be suggestive that she has vasospastic component to her chest pain as well she has tentatively been scheduled for an MRI of the head however think would be worthwhile for her to get seen by Neurology may be worthwhile doing EEG ?? She can follow-up with Dr Driver at [facility] in roughly 2 weeks I would like her to be able to have of blood pressures that will be checked at home so that we can determine if there is any pattern of elevated blood pressure so the timings of medications can be adjusted Jin Alberto MD [facility] 10/31/2018 9:25 AM ARTISAN * Holly Sawant - 10/30/2018 2:52 PM CST Nutrition Assessment Reason for Assessment: Consult/Referral Encounter Date: 10/30/18 2:52 PM Nutrition Assessment and Plan: Patient is a 28 y.o. female. Admit Dx: CHEST PAIN. Admitted on 10/30/2018, current LOS is 0 days. Consulted per stroke protocol. Pt unavailable at time of visit. Per DIE WELDER,oral/motor function WDL. No documented N/V. No intakes documented at this time. Left low sodium diet edu at bedside. Will review edu upon f/u. Will continue to monitor pt and will f/u with PO intake, nutrition and wt status, labs,and any additional nutrition needs. Nutrition Screen What diet do you follow at home?: Regular Have You Recently Lost Weight Without Trying?: No Poor Oral Intake for Four or More Days Prior to Admission: No Current diet order: Adult Diet Special; Low Fat, Low Chol, Low Na PO intakes: No documented intakes. Nutrition Diagnosis 1: No nutrition issue at this time ?? Interventions: Communication, Education, nutrition (Left low sodium diet edu at bedside) ?? Monitoring and Evaluation: Appetite, Discharge plans, Labs, Plan of care, PO intake, Weight changes ?? Goals: Adequate nutrition to meet estimated needs by next assessment, Patient/caregiver able to teach back understanding of role of diet in disease process prior to discharge Estimated needs: ?? MSJ Total Energy Needs: 1828.8 kcal using ?? Total Protein Estimated Needs (gm): 77.2 Protein Needs Based on g/k.0 Type of Weight Used for Estimated Protein : Current. ?? Total Fluid Estimated Needs: 1930 Fluid Needs Based on : 25 ml/kg. Objective Anthropometrics Weight: 77.2 kg (170 lb 3.1 oz) Admission Weight : 77.2 kg Weight Change: -2.17 kg (-4.80 lbs) IBW/kg (Calculated) : 61.2 kg Height: 170.2 cm (5' 7 ) Weight in (lb) to have BMI = 25: 159.3 BMI (Calculated): 26.7 BMI Classification: BMI 25.0 - 29.9 Overweight 3 Day I/O Summary No intake/output data recorded. Temp: 37 ??C (98.6 ??F) Past Medical History: Diagnosis Date ??? Anxiety ??? Headache ??? HX OTHER MEDICAL Carpal tunnel syndrome ??? Hypertension ??? Migraine ??? Peripheral neuropathy Medications and Lab Review: Scheduled Meds: amLODIPine 10 mg oral Daily aspirin 81 mg oral Daily ciprofloxacin 500 mg oral BID enoxaparin 40 mg subcutaneous Daily-2100 [START ON 10/31/2018] hydroCHLOROthiazide 12.5 mg oral Daily [START ON 10/31/2018] losartan 25 mg oral Daily pregabalin 50 mg oral TID topiramate 50 mg oral BID Continuous Infusions: Sodium Date Value Ref Range Status 10/30/2018 137 135 - 145 mmol/L Final Potassium, pl Date Value Ref Range Status 10/30/2018 3.0 (L) 3.5 - 5.1 mmol/L Final BUN Date Value Ref Range Status 10/30/2018 8 8 - 24 mg/dL Final Creatinine Date Value Ref Range Status 10/30/2018 0.72 0.60 - 1.30 mg/dL Final Albumin Date Value Ref Range Status 10/30/2018 3.6 3.2 - 4.8 g/dL Final Calcium Date Value Ref Range Status 10/30/2018 8.8 8.4 - 10.5 mg/dL Final No results found for: HGBA1C POC Glucose: Results for MARKLORENA ( ) as of 10/30/2018 14:29 Ref. Range 07/30/2018 20:39 07/31/2018 10:36 10/16/2018 01:19 10/30/2018 03:03 10/30/2018 07:27 Glucose, POC, bld Latest Ref Range: 70 - 199 mg/dL 88 Nursing Assessment: Merritt Scale Score: 20 Diet Instructions Recommend low sodium diet. Limit sodium intake to 2300 mg per day. Recommend follow up with outpatient nutrition services at [phone]. Nutrition Follow-Up : 11/03/18 Holly Sawant MA, RD, LD ARTISAN * Natalie Chi SLP - 10/30/2018 1:13 PM CST Speech Language/Pathology Speech/Language Pathology Initial/DischargeToday's Date: 10/30/2018 Problem List Patient Active Problem List Diagnosis ??? Hypertensive urgency Past Medical History Past Medical History: Diagnosis Date ??? Anxiety ??? Headache ??? HX OTHER MEDICAL Carpal tunnel syndrome ??? Hypertension ??? Migraine ??? Peripheral neuropathy Past Surgical History Past Surgical History: Procedure Laterality Date ??? BREAST BIOPSY ??? CERVICAL BIOPSY W/ LOOP ELECTRODE EXCISION ??? OTHER SURGICAL HISTORY Carpal tunnel syndrome: Vicodin and Tramadol Oral/Motor Assessment Oral/Motor Labial ROM: Within Functional Limits Facial ROM: Within Functional Limits Comprehension Comprehension Yes/No Questions: Within Functional Limits Commands: Within Functional Limits Conversation: Within Functional Limits Expression Verbal Expression Primary Mode of Expression: Verbal Conversation: Within Functional Limits Higher Cognitive Functioning Pain Pain Assessment Pain Assessment: No/denies pain Assessment/Recommendation Speech Therapy Prognosis Services: No skilled DIE WELDER services at this time Prognosis: Excellent Recommendations DIE WELDER Recommendation (Add'l Services): Home with family DIE WELDER Frequency of Services: One-time visit Speech Evaluation Complete: Yes Goals Multi-Disciplinary Problems (from Speech Therapy) Active Problems Not on file ARTISAN documented in this encounter H&P Notes * Zachary Driver MD - 10/30/2018 12:44 PM CST Cardiology Consult - [facility] - Zachary Driver MD FAC Name: Lorena Flores Patient's Primary Care Physician: See Gonsalez MD Referring Physician: No ref. provider found Age: 28 y.o. Race: Black Or Sex: female Chief Complaint/History of Present Illness Patient was admitted to [facility] on 10/30/2018 with Chief Complaint Patient presents with ??? 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 She says that she was recently diagnosed in July with hypertension was started on Norvasc when her blood pressure was noted to be over 250. She notices that there are episodes when she experiences visual scotomas she was to looking at her cell phone during this the most recent episode where she was seen/pelvis going off from the cellphone she asked her to see whether not there were any abnormalities or lights flashing on the cell phone which she was not able to see. Madalyn has had episodes where she will stay stopping able to talk he starts feeling pressure in her head. She denies any dietary indiscretions is that she was getting around yesterday and had eaten cheese burger and Dominican fries content denies having and additional salt for additional continence to her meals. During this episode she also described having lost consciousness. He says that which she usually had her eye blood pressure in the 250s that she may be having had a similar episode at that time. Chest pressure appears to be a dull type sensation noted in her pectoral area non reproducible 12 lead EKG demonstrates her to be in sinus rhythm at a rate of [address] segment abnormality which may be suggestive of possible ischemia serial troponins are noted be negative CT scan of the head was also performed which was negative for any acute intracranial process since she had experienced numbness and tingling on the right side of her face and body She has no history of prior seizure disorder however she thought the 1 of the events that have represented a focal seizure where she was able to listen and understand what people were saying and was not able to communicate with him. There have been no episodes where she has out right shaking of herhands or incontinence. She apparently has been in the hospital ER on several other occasions she was recently in the emergency room on October 15, 2018 and her blood pressure was 152/102 another episode should present to the emergency room on October 16 where she was doing errands and had felt chest pressure at that time her blood pressure was controlled at 109/78 She was placed on Topamax for history of migraine headaches that she has experienced and is on Norvasc 10 mg daily for her blood pressure and is also on Lyrica. She is a nonsmoker nondiabetic but has a family history of heart disease involving her father's grandfather and mother's grandmother both of whom had heart problems including heart attack. Arrival Vitals [10/30/18 0241] Temp 36.8 ??C (98.2 ??F) Pulse 75 Resp 20 BP 155/95 SpO2 100 % Temp src Oral Heart Rate Source Monitor;Pulse Oximetry Patient Position Sitting BP Location Right arm FiO2 (%) Past Medical History: Diagnosis Date ??? Anxiety [...] ??? Mitral valve prolapse Mother Social History Social History ??? Marital status: Spouse name: N/A ??? Number of children: N/A ??? Years of education: N/A Social History Main Topics ??? Smoking status: Never Smoker ??? Smokeless tobacco: Never Used ??? Alcohol use Yes Comment: rare ??? Drug use: No ??? Sexual activity: Not Asked Other Topics Concern ??? None Social History Narrative Silvino had an RI in his 60s Prescriptions Prior to Admission Medication Sig Dispense Refill Last Dose ??? aspirin 81 mg tablet Take 81 mg by mouth daily. ??? amLODIPine (NORVASC) 10 mg tablet Take 1 tablet (10 mg total) by mouth daily. 30 tablet 0 Taking ??? pregabalin (LYRICA) 50 mg capsule Take 1 capsule (50 mg total) by mouth 3 (three) times a day. 90 capsule 5 ??? SUMAtriptan (IMITREX) 100 mg tablet Take 1 tablet (100 mg total) by mouth once as needed for migraine (headache) for up to 1 dose. May repeat one time after 2 hours if needed. 9 tablet 11 ??? topiramate (TOPAMAX) 25 mg tablet Take 2 tablets (50 mg total) by mouth 2 (two) times a day. (Patient taking differently: Take 50 mg by mouth 4 (four) times a day. ) 120 tablet 0 Taking ??? traMADol (ULTRAM) 50 mg tablet Take 1 tablet (50 mg total) by mouth every 6 (six) hours as needed for pain. 20 tablet 0 Taking Allergies Allergen Reactions ??? Prochlorperazine Anaphylaxis MEDICATIONS FOR CURRENT ENCOUNTER: SCHEDULED MEDICATIONS: Scheduled Medications Medication Dose Route Frequency ??? amLODIPine (NORVASC) tablet 10 mg 10 mg oral Daily ??? aspirin enteric coated tablet 81 mg 81 mg oral Daily ??? ciprofloxacin (CIPRO) tablet 500 mg 500 mg oral BID ??? enoxaparin (LOVENOX) syringe 40 mg 40 mg subcutaneous Daily-2100 ??? pregabalin (LYRICA) capsule 50 mg 50 mg oral TID ??? topiramate (TOPAMAX) tablet 50 mg 50 mg oral BID ?? CONTINUOUS MEDICATIONS: Continuous Medications Medication Dose Last Rate ?? PRN MEDICATIONS: PRN Medications Medication Dose Route Frequency Last Dose ??? acetaminophen (TYLENOL) tablet 650 mg 650 mg oral Q6H PRN ??? morphine injection 1 mg 1 mg intravenous Q3H PRN 1 mg at 10/30/18 0958 ??? nitroglycerin (NITROSTAT) sublingual tablet 0.4 mg 0.4 mg sublingual Q5 Min PRN ??? ondansetron (ZOFRAN) injection 4 mg 4 mg intravenous Q6H PRN ??? SUMAtriptan (IMITREX) tablet 100 mg 100 mg oral Once PRN ??? traMADol (ULTRAM) tablet 50 mg 50 mg oral QID PRN ?? Review of Systems 11 point system review was obtained all pertinent positives and negatives have been listed in the HPI. Exam Vitals: 10/30/18 0734 10/30/18 0938 10/30/18 1157 10/30/18 1200 BP: 128/84 111/74 BP Location: Right arm Patient Position: Pulse: 64 70 71 68 Resp: 18 20 Temp: 37 ??C (98.6 ??F) TempSrc: Oral SpO2: 100% 100% Weight: Height: General: No acute distress Neuro: Alert and oriented x3, moves all extremities well HEENT: NCAT Neck: No JVD Chest: Diminished breath sounds bilaterally. No rales, rhonchi, or wheezes noted Cardiac: Regular S1, S2, Normal rate. No murmurs Extremities: No LE edema. Neuro: No focal deficits Psych: appropriate mood and normal affect Data Recent Labs Lab Units 10/30/18 0727 10/30/18 0303 SODIUM mmol/L -- 137 POTASSIUM PLASMA mmol/L -- 3.0* CHLORIDE mmol/L -- 109 CO2 mmol/L -- 21* ANIONGAP mmol/L -- 10 GLUCOSE mg/dL -- 136 POC GLUCOSE MONITOR mg/dL 88 -- BUN SERUM mg/dL -- 8 CREATININE mg/dL -- 0.72 CALCIUM mg/dL -- 8.8 ALBUMIN g/dL -- 3.6 ALK PHOS Units/L -- 75 ALT Units/L -- 14 AST Units/L -- 20 BILIRUBIN TOTAL mg/dL -- 0.50 Recent Labs Lab Units 10/30/18 0727 10/30/18 0303 JML-[id number]-FLQATYE mL/min/1.73 m2 -- 112 GLUCOSE mg/dL -- 136 POC GLUCOSE MONITOR mg/dL 88 -- CALCIUM mg/dL -- 8.8 ALBUMIN g/dL -- 3.6 Recent Labs Lab Units 10/30/18 0303 WBC K/cumm 10.0* HEMOGLOBIN g/dL 11.9 HEMATOCRIT % 37.2 PLATELETS K/cumm 301 Recent Labs Lab Units 10/30/18 0303 INR 1.23* Recent Labs Lab Units 10/30/18 0303 BNP pg/mL 10 Recent Labs Lab Units 10/30/18 1154 10/30/18 0847 10/30/18 0303 TROPONIN I ng/mL <0.03 <0.03 <0.03 Results for orders placed during the hospital encounter of 10/30/18 ECG 12 lead Results for orders placed or performed during the hospital encounter of 10/30/18 ECG 12 lead Result Value Ref Range Patient age 28 years Interpretation Text SINUS RHYTHMST DEVIATION AND MODERATE T-WAVE ABNORMALITY, CONSIDER ANTEROLATERAL ISCHEMIAABNORMAL ECGPREVIOUS TRACIN10/30/2018 02.47 Ventricular Rate EKG/Min 62 /min P Wave Duration 131 ms QRS-Interval (MSEC) 86 ms IA-Interval (MSEC) 157 ms QT Interval 379 ms QTc 382 ms QTC Interval ms P Dixon 47 deg QRS Dixon 18 deg T Dixon -18 deg Assessment and Plan Pt is a 28 y.o. female who presents to the hospital with Chief Complaint Patient presents with ??? Chest Pain At present my recommendations are as follows: Active Problems: No Active Problems: There are no active problems currently on the Problem List. Please update the Problem List and refresh. 1. Hypertension- patient has a known history of hypertension she has the started on Norvasc she describes visual scotomas and her symptoms seem to be associated with neurological manifestation of uncontrolled systemic hypertension. She has a not for certain but thinks that her father may have had areaction to lisinopril she has never been on lisinopril but however her dad was able to take losartan. He will be worthwhile adding losartan 25 mg daily and at least 12.5 mg of hydrochlorothiazide daily 1. In regards to testing I think she will benefit from having a renal artery Doppler done to exclude renal artery hypertension secondary to renal artery stenosis or fibromuscular dysplasia. 2. Additionally this surging of blood pressure seems to be a unique factor in her and this may be related to chemical imbalance causes such as pheochromocytoma or carcinoid as she describes an overwhelming sensation and seems to go through her body. We worthwhile getting urinary metanephrines to mine shane as well as a 24 hr urine collection. As well as serum 5 HIAA. 3. Additionally echocardiogram can be ordered to evaluate for left ventricular hypertrophy she can get an outpatient stress test 2. Chest pains- I doubt that she actually has ischemic heart disease because her troponins are negative her EKGs are variable in their presentation there is no definitive evidence of ongoing infarction I am wondering whether she has Prinzmetal's variant angina which may be associated with coronary vasospasm as she has a history of migraine headaches since enzymes are negative she can have an outpatient stress test 3. TSH was noted to be 2.52 she was concerned about that since some of her family members have had thyroid issues she experience palpitations and was worried about an arrhythmia will get an outpatient Holter monitor or a mobile tele monitor for her to wear 4. Headaches-history of migraine headaches she has been on Topamax and sumatriptan these may be suggestive that she has vasospastic component to her chest pain as well she has tentatively been scheduled for an MRI of the head however think would be worthwhile for her to get seen by Neurology may be worthwhile doing EEG She can follow-up with me at [facility] in roughly 2 weeks I would like her to be able to have of blood pressures that will be checked at home so that we can determine if there is any pattern of elevated blood pressure so the timings of medications can be adjusted Thank you for allowing us to participate in the care of this patient. We will continue to follow. If you have any questions, please don't hesitate to call. Zachary Driver MD, [facility] [phone] 10/30/2018 12:44 PM CC: JOVANNY [phone] ARTISAN * Lina Montague NP - 10/30/2018 8:56 AM CST History and Physical CHIEF COMPLAINT Chief Complaint Patient presents with ??? Chest Pain HPI Patient is a 28 y.o. female with past medical history of hypertension, anxiety, migraine headaches and peripheral neuropathy who presents to the emergency room due to chest pain, numbness and tingling. Patient reports last night while sitting she developed a sudden onset of numbness and tingling ofher entire body. She states her body felt warm and fuzzy and she felt dizzy. She states she was talking to her and she felt like she blanked out for approximately 30 seconds. She noted numbness and tingling on the right side of her face, head and the right side of her back. She states shelaid down and approximately 5 minutes later the episode occurred again. She also reports midsternalchest pain and she described it as a pressure type pain when she breathes in. She rates the pain as a 6/10. It is nonradiating. Of note, she has report complaint of chest pain during this interview. She also reports seeing intermittent flashing lights . She denies slurred speech, blurred vision, gait instability, shortness of breath, headache, fever, chills, abdominal pain, nausea, vomiting, constipation, diarrhea, or melena. According to the emergency room records she has states she was seen at the urgent care approximately 2 to 3 days ago and was diagnosed with urinary tract infection. Dueto the above this patient presents to the emergency room for evaluation. On arrival to the emergency room the temperature was 98.2??, pulse 75, respirations 20 and blood pressure 155/95. O2 saturation was 100 percent. Patient received supportive care with Dilaudid. She also received Ativan. In addition she received oral Cipro. Chest x-ray was performed showing no acute p ulmonary change. CT of the head showing no acute intracranial process. This patient has been admitted to the hospital for further evaluation and care. PAST MEDICAL HISTORY Past Medical History: Diagnosis Date ??? Anxiety Carpal tunnel syndrome ??? Hypertension ??? Migraine ??? Peripheral neuropathy PAST SURGICAL HISTORY Past Surgical History: Procedure Laterality Date 03/24/2007 LEEP cone, cervical biopsy 01/24/2009 excision of fibroadenoma of the left breast Breast biopsy ALLERGIES Allergies Allergen Reactions ??? Prochlorperazine Anaphylaxis FAMILY HISTORY family history includes Diabetes in an other family member; Hypertension in her mother and another family member; Mitral valve prolapse in her mother. Mother with history of hypertension. Father with history of hypertension and diabetes. Maternal aunt with history of CVA paternal grandmother with history of RI CVA. Paternal grandfather with history of RI. SOCIAL HISTORY Patient lives with her she has 4 children. She does not smoke or use any illicit street drugs. She drinks alcohol occasionally. 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 HOME MEDICATIONS Prior to Admission medications Medication Sig Start Date End Date Taking? Authorizing Provider aspirin 81 mg tablet Take 81 mg by mouth daily. Yes Historical Provider, amLODIPine (NORVASC) 10 mg tablet Take 1 tablet (10 mg total) by mouth daily. 08/03/18 09/02/18 Adri Fletcher MD pregabalin (LYRICA) 50 mg capsule Take 1 capsule (50 mg total) by mouth 3 (three) times a day. 08/09/18 02/05/19 Mee See NP SUMAtriptan (IMITREX) 100 mg tablet Take 1 tablet (100 mg total) by mouth once as needed for migraine (headache) for up to 1 dose. May repeat one time after 2 hours if needed. 08/09/18 Mee See NP topiramate (TOPAMAX) 25 mg tablet Take 2 tablets (50 mg total) by mouth 2 (two) times a day. Patient taking differently: Take 50 mg by mouth 4 (four) times a day. 08/02/18 09/01/18 Adri Fletcher MD traMADol (ULTRAM) 50 mg tablet Take 1 tablet (50 mg total) by mouth every 6 (six) hours as needed for pain. 07/30/18 Hailee Burris MD REVIEW OF SYSTEMS 14 point review of systems is negative except for what I have already mentioned above in the history of present illness. OBJECTIVE Temp Av.9 ??C (98.5 ??F) Min: 36.8 ??C (98.2 ??F) Max: 37.1 ??C (98.7 ??F) BP Min: 115/78 Max: 155/95 Pulse Av.7 Min: 63 Max: 96 Resp Av.5 Min: 11 Max: 20 SpO2 Av.5 % Min: 96 % Max: 100 % No intake/output data recorded. Weight: Wt Readings from Last 1 Encounters: 10/30/18 77.2 kg (170 lb 3.1 oz) PHYSICAL EXAM General: This is a 28 y.o. female in no acute distress. Head: Normocephalic, atraumatic. Eyes: PERRLA, EOMI bilaterally. No conjunctival injection. Nasal cavity is patent. Throat is clear.Mucus membranes are pink and moist without bleeding. Neck: Supple. No JVD. No lymphadenopathy. Trachea is in the midline position. Lungs: Clear breath sounds bilaterally. No wheezing auscultated. Heart: S1 and S2. No murmur auscultated. Abdomen: Round, soft, nontender. Bowel sounds are present in all four quadrants. Extremities: No cyanosis, clubbing or edema. Neuro: Patient is awake and alert x 3. Speech is clear and coherent. 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 There was no pronator drift. Tongue protrusion was adequate and patient able tomove the tongue from side to side without any difficulties. She he will to raise bilateral lower extremity the bed without difficulties. Her smile is symmetrical. Skin: Warm and dry. No rashes or lesions. LAB/RADIOLOGY/DIAGNOSTIC: Recent Labs Lab Units 10/30/18 0303 WBC K/cumm 10.0* HEMOGLOBIN g/dL 11.9 HEMATOCRIT % 37.2 PLATELETS K/cumm 301 NEUTROS PCT % 65.8 LYMPHS PCT % 25.7 MONOS PCT % 5.5 EOS PCT % 2.1 Recent Labs Lab Units 10/30/18 0727 10/30/18 0303 SODIUM mmol/L -- 137 POTASSIUM PLASMA mmol/L -- 3.0* CHLORIDE mmol/L -- 109 CO2 mmol/L -- 21* ANIONGAP mmol/L -- 10 GLUCOSE mg/dL -- 136 POC GLUCOSE MONITOR mg/dL 88 -- BUN SERUM mg/dL -- 8 CREATININE mg/dL -- 0.72 CALCIUM mg/dL -- 8.8 ALBUMIN g/dL -- 3.6 ALK PHOS Units/L -- 75 ALT Units/L -- 14 AST Units/L -- 20 BILIRUBIN TOTAL mg/dL -- 0.50 Lab Results Lab Value Date/Time TROPONINI <0.03 10/30/2018 0303 Lab Results Component Value Date BNP 10 10/30/2018 Lab Results Component Value Date TSH 2.52 07/31/2018 Recent Labs Lab Units 10/30/18 0303 PROTIME (PT) sec 13.9* INR 1.23* Recent Labs Lab Units 10/30/18 0400 COLOR U Yellow CLARITY U Cloudy* SPEC GRAV U 1.011 PH, URINE 7.0 PROTEIN UR QL Negative GLUCOSE URQL Negative KETONES UR Negative BLOOD UR Negative NITRITE UR Negative LEUKOCYTE ESTERASE UR 3+* * Cannot find OR log * Xr Chest Pa Lateral 2 Views Result Date: 10/16/2018 Narrative: XR CHEST PA LATERAL 2 VIEWS HISTORY: chest pressure. Hypertension. Dizziness. COMPARISON: 10/29/2015 FINDINGS: PA frontal and lateral projections are obtained. The lungs are clear bilaterally with no focal infiltrates. The heart size and pulmonary vascularity are normal. Impression: NO ACTIVE CARDIOPULMONARY DISEASE. Electronically signed by: Carmelo Clay M.D. Ct Head Wo Contrast Result Date: 10/30/2018 Narrative: EXAM: CT head without contrast DATE: 10/30/2018 3:25 AM CLINICAL HISTORY: Numbness and tingling to the right side of the face. TECHNIQUE: Computed tomographic images of the head were obtained in the axial plane in both brain and bone windows without the administration of contrast. Comparison date is 07/31/2018 Findings: The cerebrum, cerebellum and brainstem are normal with normal pyane-white differentiation. The ventricles and basilar cisterns are normal. The midline structures are normal. There is no evidence of acute or evolving infarct, contusion or intracranial hemorrhage. The visible paranasal sinuses and mastoid air cells are clear. There is no acute or healing skull fracture. Impression: No acute intracranial process. Electronically signed by: Nicholas Gonzales M.D. Xr Chest 1 View Result Date: 10/30/2018 Narrative: RESULT: HISTORY: Chest pain EXAMINATION: XR CHEST 1 VIEW ORDER DATE: 10/30/2018 3:20 AM FINDINGS: There are small scattered parenchymal and perihilar granulomatous calcifications. The cardiac and mediastinal outlines are unremarkable. There are no pleural effusions or infiltrates. No significant abnormalities are noted in the spine or remainder of the bony thorax except for the healed displaced fracture of the right clavicle. Impression: IMPRESSION: NO ACUTE PULMONARY CHANGE. Electronically signed by: Don Barkley M.D. EKG: Sinus rhythm ASSESSMENT AND PLAN All diagnoses were present on admission. 1. Chest pain, unsure the etiology. EKG. Troponin. Will check a D-dimer. Supportive care with Morphine. Will request cardiac consult with Cardiology and we appreciate their evaluation recommendations. 2. Numbness and tingling unsure the etiology possibly neuropathy related although we cannot rule out TIA. Consult has been requested with Dr. Wilkins and we appreciate his evaluation and recommendations. Stroke protocol has been initiated. 3. Peripheral neuropathy. Lyrica. 4. Hypokalemia. Replace potassium. BMP in a.m. 5. Urinary tract infection. Continue Cipro. 6. Hypertension. Will monitor the blood pressure closely and treat accordingly. Continue Amlodipine. 7. Migraine headaches. Continue Topamax. Imitrex. 8. Anxiety. 9. DVT and GI prophylaxis initiated. ADDENDUM: 14:[address] Driver regarding patient. 24 hour urine for Metanephrines, EEG and serum 5H1AA ordered per Dr. Driver. In addition, patient will be started on Cozaar 25 milligrams daily and HCTZ 12.5 milligrams after 24 hour urine collection obtain. 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 female with chief complaint of numbness of right face. HPI: Patient gave inconsistent history throughout the interview. It seems that she was in the bed on theday of admission, she had chest pressure sensation with radiation to the left side. She also reported numbness of right face. It lasted for about 5 min. It come back later for about 1 hr. It was associated with numbness of of both upper and lower extremity and numbness of left face at some point. She denies similar history in the past, but upon review of epic. Patient was taking Lyrica for ???neuropathy ???and asked for tramadol for ???neuropathy?? in August 2018. She denies any significant headache, speech difficulty or focal weakness of extremity. At this point, the tingling numbness of face and the whole body have resolved. She was recently admitted to [facility] in July 2018 for severe headache associated with hypertension. Past Medical History: Diagnosis Date ??? Anxiety ??? Headache ??? HX OTHER MEDICAL Carpal tunnel syndrome ??? Hypertension ??? Migraine ??? Peripheral neuropathy Past Surgical History: Procedure Laterality Date ??? BREAST BIOPSY ??? CERVICAL BIOPSY W/ LOOP ELECTRODE EXCISION ??? OTHER SURGICAL HISTORY Carpal tunnel syndrome: Vicodin and Tramadol Allergies Allergen Reactions ??? Prochlorperazine Anaphylaxis Prescriptions Prior to Admission Medication Sig Dispense Refill Last Dose ??? aspirin 81 mg tablet Take 81 mg by mouth daily. ??? amLODIPine (NORVASC) 10 mg tablet Take 1 tablet (10 mg total) by mouth daily. 30 tablet 0 Taking ??? pregabalin (LYRICA) 50 mg capsule Take 1 capsule (50 mg total) by mouth 3 (three) times a day. 90 capsule 5 ??? SUMAtriptan (IMITREX) 100 mg tablet Take 1 tablet (100 mg total) by mouth once as needed for migraine (headache) for up to 1 dose. May repeat one time after 2 hours if needed. 9 tablet 11 ??? topiramate (TOPAMAX) 25 mg tablet Take 2 tablets (50 mg total) by mouth 2 (two) times a day. (Patient taking differently: Take 50 mg by mouth 4 (four) times a day. ) 120 tablet 0 Taking ??? traMADol (ULTRAM) 50 mg tablet Take 1 tablet (50 mg total) by mouth every 6 (six) hours as needed for pain. 20 tablet 0 Taking Family History Problem Relation Age of Onset ??? Diabetes Other Family history of Diabetes mellitus; ??? Hypertension Other Family history of Hypertension; ??? Hypertension Mother ??? Mitral valve prolapse Mother Social History Social History Main Topics ??? Smoking status: Never Smoker ??? Smokeless tobacco: Never Used ??? Alcohol use Yes Comment: rare ??? Drug use: No Social History ??? Marital status: Social History Narrative Grandpa had an RI in his 60s Review of Systems: Constitutional: No weight loss/gain, Fatigue, excessive sweating, fever, chills HEENT: No headache/migraine, hearing loss,change in vision, cataracts Respiratory: No trouble breathing, coughing/wheezing, asthma, snoring Muscle skeletal: No joint pain, muscle pain, back pain, neck pain, limb pain Cardiovascular: has chest pain, no palpitations, irregular heart beat, passing out, fainting Vascular: has whole body tingling, numbness, no swelling, discoloration of the extremities Gastrointestinal: No nausea, vomiting, diarrhea, abdominal pain Neurologic: No tremors, weakness, Has numbness, no changes in gait, changes in memory Genitourinary: No painful urination, difficulty urination, frequent urination, urinary incontinence, discoloration of urine Reproductive: No hot flash, changes in libido, sexual transmitted disease Metabolic//Endocrine: No sensitivity to heat/cold, abnormal sleep pattern, skin change No hot flash. Psychiatric: No anxiety, depression, mood swings Objective Vitals: 24hr Min/Max: Temp Min: 36.6 ??C (97.8 ??F) Max: 37.4 ??C (99.4 ??F) Pulse Min: 66 Max: 104 BP Min: 101/69 Max: 140/86 Resp Min: 16 Max: 20 SpO2 Min: 99 % Max: 100 % Most Recent: Vitals: 10/31/18 1600 BP: 118/82 Pulse: 88 Resp: 20 Temp: 37.4 ??C (99.4 ??F) SpO2: 99% Physical Exam: Constitutional: well-developed, well-nourished and in no acute stress. Head/Neck: atraumatic, no deformity or stiffness of neck Ears, Nose, Mouth and Throat: No ear tenderness, rhinorrhea, dry mouth or redness of throat. Eyes: Conjunctiva is clear. Sclera normal in color. Eyelid is normal Cardiovascular: S1, S2 are regular. No rubs or gallops Respiratory: clear bilaterally. No rales or wheezing. Adequate air entry Musculoskeletal: no atrophy, Tenderness or abnormal movement Extremities: no edema, cyanosis or deformities Skin: no rashes or lesions Psychiatric: normal mood and affect. Judgment and insight appear intact Mental status: alert, speech fluent, comprehension intact, Follow command appropriately Cranial nerve: ROMA, corneal reflex present. EOMI, VFF by confrontation method. Facial sensations symmetrical. Face symmetrical. shoulder shrug symmetrical b/l. tongue midline. Motor: bulk normal, tone normal, pronator drift negative. Strength 5/5. No abnormal movement. Coordination: FTN normal Reflexes: Biceps 2+ b/l, Triceps 2+ b/l, Knee reflex 2+ b/l, Achilles reflex 2+ b/l. plantar downward b/l. Sensation: LT Normal and symmetrical. Gait: not assessed Lab/Radiology/Diagnostic Review: 1. 10/30/2018 MRI of brain: No acute intracranial process. No evidence suggestive of demyelinating disease. I reviewed the image. 2. 10/30/2018 MRI of head and neck: No high-degree stenosis or vascular malformation. 3. 10/30/2018 EKG: Sinus rhythm. HR 75. 4. 10/30/2018 echocardiogram: Ejection fraction 65%. No mural thrombosis or valvular vegetation. 5. 10/28/2018: Cholesterol 118, triglyceride 83 HDL 25, LDL 72. Assessment /Plan Active Problems: No Active Problems: There are no active problems currently on the Problem List. Please update the Problem List and refresh. Impressions: This is a 28 years old female who was admitted the hospital because of right facial numbness which was associated with numbness of whole-body. Physical examination is unremarkable. MRI of the brain did not show any acute intracranial process or evidence to suggest demyelinating disease. I have high suspicion for functional disorder. Recommendations: 1. Aspirin 81 mg daily 2. From neurology standpoint, no further workup is necessary. 3. From neurology standpoint, patient can be discharged. I will sign off the patient. Please call with questions. Dwaine Gonzalez MD 10/31/2018 4:24 PM ARTISAN ARTISAN documented in this encounter ED Notes * Truong Rodriguez MD - 10/30/2018 3:15 AM CST HPI Chief Complaint Patient presents with ??? 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 She reports seeing intermittent flashes and had numbness and tingling to the right side of her face yesterday. Patient correlates symptoms to possible mini TIA's . Patient states she was seen 2 or 3 days ago at an Urgent care and was diagnosed with a UTI. She also had tingling all over due to her neuropathy. There are no other complaints at this time. History provided by: Patient Patient History Patient Active Problem List Diagnosis [...] Smokeless tobacco: Never Used ??? Alcohol use Yes Comment: rare Social History Social History Narrative Grandartur had an RI in his 60s Review of Systems Review of Systems Constitutional: Negative for chills, fatigue and fever. HENT: Negative for congestion, ear pain, rhinorrhea, sneezing and sore throat. Respiratory: Negative for cough, shortness of breath and wheezing. Cardiovascular: Positive for chest pain. Negative for palpitations. Gastrointestinal: Negative for abdominal pain, constipation, diarrhea, nausea and vomiting. Genitourinary: Negative for dysuria and frequency. Musculoskeletal: Negative for arthralgias, back pain, myalgias and neck pain. Skin: Negative for rash and wound. Neurological: Positive for numbness. Negative for dizziness, syncope, weakness, light-headedness and headaches. +Paraesthesias. All other systems reviewed and are negative. Physical Exam ED Triage Vitals [10/30/18 0241] Temp Pulse Resp BP SpO2 36.8 ??C (98.2 ??F) 75 20 155/95 100 % Temp src Heart Rate Source Patient Position BP Location FiO2 (%) Oral Monitor;Pulse Oximetry Sitting Right arm -- Physical Exam Constitutional: She is oriented [...] is normal. Nursing note and vitals reviewed. [facility] ED Course as of Oct 30 602 Time: 10/30 315 Value: BP: (!) 130/110 Comment: Pre-hypertension/Hypertension: The patient has been informed that they may have pre-hypertension or Hypertension based on a blood pressure reading in the Emergency Department. I recommend that the patient call the primary care provider listed on their discharge instructions or a physician of their choice this week to arrange follow up for further evaluation of possible pre- hypertension or Hypertension. By: Zhou Duron Time: 10/30 034 Value: CT Head WO Contrast Comment: No evidence of acute intracranial abnormality. By: Zhou Duron Time: 10/30 0503 Comment: Spoke with Dr. Watters ([facility]) who agrees to admit. By: Zhou Duron Procedures Labs Reviewed URINALYSIS AND REFLEX TO MICROSCOPIC AND CULTURE - Abnormal Result Value Color, ur Yellow Clarity, ur Cloudy (*) Specific gravity, ur 1.011 pH, urine 7.0 Protein, ur ql Negative Glucose, ur ql Negative Ketones, ur Negative Bilirubin, ur Negative Blood, ur Negative Urobilinogen, ur <2.0 Nitrite, ur Negative Leukocyte esterase, ur 3+ (*) Narrative: Urine pH is affected by diet, medications, systemic acid-base disturbances, and renal tubular function. pH may affect urinary stone formation. For example, urine pH below 6.0 may help reduce the tendency for calcium phosphate stones and pH greater than 6.0 may reduce the tendency for uric acid stone formation. Source: [facility] [employer].Last revised 12-08-2017 CBC WITH AUTO DIFFERENTIAL - Abnormal WBC 10.0 (*) Hgb 11.9 Hct 37.2 Plt 301 MPV 9.3 RBC 4.10 MCV 90.7 MCH 29.0 MCHC 32.0 (*) RDW CV 12.5 RDW SD 41.3 NRBC Abs 0.00 Narrative: COMPREHENSIVE METABOLIC PANEL - Abnormal Sodium 137 Potassium, pl 3.0 (*) Chloride 109 CO2 21 (*) Anion Gap 10 BUN 8 Creatinine 0.72 Glucose 136 Calcium 8.8 Bilirubin, total 0.50 Protein, pl 6.7 Albumin 3.6 Alk phos 75 ALT 14 AST 20 Narrative: DIFFERENTIAL AUTO - Abnormal Neutrophil absolute 6.6 (*) Immature granulocyte absolute 0.0 Lymphocytes absolute 2.6 Monocyte absolute 0.6 Eosinophils absolute 0.2 Basophils, abs 0.0 Neutrophils 65.8 Immature granulocytes 0.5 Lymphocytes 25.7 Monocytes 5.5 Eosinophils 2.1 Basophils 0.4 Narrative: PROTIME-INR - Abnormal PT 13.9 (*) INR 1.23 (*) Narrative: URINALYSIS, MICROSCOPIC ONLY - Abnormal WBC, ur 21-50 (*) RBC, ur 6-10 (*) Epithelial cells, squamous, ur 1-5 Yeast, ur 4+ (*) Mucous, ur Present (*) Narrative: TROPONIN I Troponin I <0.03 Narrative: AMYLASE Amylase 46 Narrative: LIPASE Lipase 36 Narrative: B-TYPE NATRIURETIC PEPTIDE B-Type Natriuretic Peptide (BNP) 10 Narrative: EGFR GFR 112 Narrative: XR Chest 1 View (Results Pending) CT Head WO Contrast (Results Pending) BP 122/79 Pulse 76 Temp 36.8 ??C (98.2 ??F) (Oral) Resp 15 Ht 170.2 cm (5' 7 ) Wt 79.4 kg(175 lb) SpO2 100% BMI 27.41 kg/m?? Chest pain, unspecified type Urinary tract infection without hematuria, site unspecified Neuropathy (CMS/HCC) Zhou Duron scribed for Truong Rodriguez MD in the doctor's presence. I electronically signed this note at 3:15 AM on 10/30/2018. Truong Rodriguez MD I, *Truong Rodriguez MD , have personally performed the services described in the documentation , reviewed the documentation, as recorded by the scribe in my presence, and it accurately and completely records my words andactions. Truong Rodriguez MD 10/30/18 0603 ARTISAN * Colby Gordon RN - 10/30/2018 3:00 AM CST Chest pain sternal radiates slightly to left, per patient pain feels like pressure 6/10 patient states when she breaths in. Colby Gordon RN 10/30/18 0301 ARTISAN * Colby Gordon RN - 10/30/2018 2:52 AM CST Right side of face and whole body felt numb, patient stated she was talking really slow, patient states she blanked out-per possibly 30 seconds- patient did not remember conversation.Patient stated she had numbness upon entering er right side of face lower ext felt numb Patient states she feels warm and then gets a tingling sensation on right side of face Colby Gordon RN 10/30/18 0255 ARTISAN * Beverly Tellez RN - 10/30/2018 2:41 AM CST Pt stated that she started to have chest pain and episodes of full body numbness intermittently over the past 2 days. She stated that she is having flashes in her eyes and she thinks that she is having mini TIAS andshe is having anxiety. 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 Pt with an IPA insurance product that is out of network for CMR. Will Inform SS on the case and will sign off the case. ARTISAN * Plan of Care - Stephanie Stevens RN - 11/01/2018 5:43 AM CST Goals: Clinical Goals for the Shift: Stable VS, Control pain, Neuro check every 4 hours, monitor Lab provide quite environment Activity: ??? Capacity to carry out activities will improve Progressing ??? Mobility will improve Progressing ??? Range of joint motion will improve Progressing Coping: ??? Level of anxiety will decrease Progressing Coping: ??? Ability to verbalize positive feelings about self will improve Progressing ??? Ability to identify appropriate support needs will improve Progressing ??? Ability to identify strategies to decrease anxiety will improve Progressing Health Behavior: ??? Understanding of discharge needs will improve Progressing Lack of Knowledge: ??? Knowledge of disease or condition will improve Progressing ??? Understanding of discharge needs will improve Progressing ??? Verbalization of understanding the information provided will improve Progressing Alert oriented, resting well ,stable VS, minimal pain possible D/C today ARTISAN * Plan of Care - Connie Ruiz RN - 10/31/2018 6:53 AM CST Goals: Clinical Goals for the Shift: Monnitor labs, vital signs. Nuero check every 4 hours. Summary: Patient complaining of pain on her leg with mod. Relief from Dilaudid. Started the 24 hour urine collection at 9 PM last night. Neuro checks done every 4 hours. Will continue to monitor. ARTISAN * Brick Unloader Tender Pre-admission Screen - July Coe RN - 10/30/2018 6:30 PM CST Acute Inpatient Rehabilitation Referral Received: Per patient's Insurance, [facility]; Acute Inpatient [facility] is out of Network. We will not be able to admit her to our unit. We will sign off her case. Thank you for allowing us to participate in her care. ARTISAN * Plan of Care - Fariba Santana RN - 10/30/2018 3:14 PM CST Goals: Summary: VSS, CT done, pt getting MRI now ARTISAN documented in this encounter Plan of Treatment Not on file documented as of this encounter Procedures Procedure Name Priority Date/Time Associated Diagnosis Comments EEG Routine 10/31/2018 7:45 AM CLAY ARTISAN EGFR Routine 10/31/2018 5:23 AM CLAY ARTISAN DIFFERENTIAL AUTO Routine 10/31/2018 5:2 3 AM CLAY ARTISAN CBC WITH AUTO DIFFERENTIAL Routine 10/31/2018 5:23 AM CLAY ARTISAN TROPONIN I Timed 10/31/2018 5:23 AM CLAY ARTISAN TSH Routine 10/31/2018 5:23 AM CLAY ARTISAN LIPID PANEL Routine 10/31/2018 5:23 AM CLAY ARTISAN BASIC METABOLIC PANEL Routine 10/31/2018 5:23 AM CLAY ARTISAN TROPONIN I Timed 10/30/2018 6:12 PM CLAY ARTISAN MRA CAROTIDS WO CONTRAST IP Routine 10/30/2018 4:24 PM CLAY ARTISAN MRI BRAIN WO CONTRAST IP Routine 10/30/2018 4:24 PM CLAY ARTISAN TRANSTHORACIC ECHO (TTE) COMPLETE W DOPPLER/CF WO CONTRAST Routine 10/30/2018 4:10 PM CLAY ARTISAN TROPONIN I Timed 10/30/2018 4:00 PM CLAY ARTISAN MRA HEAD WO CONTRAST IP Routine 10/30/2018 3:40 PM CLAY ARTISAN ECG 12-LEAD Routine 10/30/2018 1:20 PM CLAY ARTISAN TROPONIN I Timed 10/30/2018 11:54 AM CLAY ARTISAN D-DIMER, QUANTITATIVE Routine 10/30/2018 11:54 AM CLAY ARTISAN TROPONIN I Timed 10/30/2018 8:47 AM CLAY ARTISAN ECG 12-LEAD STAT 10/30/2018 8:40 AM CLAY ARTISAN POCT GLUCOSE DEVICE Routine 10/30/2018 7 :27 AM CLAY ARTISAN URINALYSIS AND REFLEX TO MICROSCOPIC AND CULTURE STAT 10/30/2018 4:00 AM CLAY ARTISAN URINALYSIS, MICROSCOPIC ONLY STAT 10/30/2018 4:00 AM CLAY ARTISAN URINE CULTURE STAT 10/30/2018 4:[address] HEAD WO CONTRAST ED 10/30/2018 3 :40 AM CLAY ARTISAN XR CHEST 1 VIEW ED 10/30/2018 3:39 AM CLAY ARTISAN EGFR STAT 10/30/2018 3:03 AM CLAY ARTISAN DIFFERENTIAL AUTO STAT 10/30/2018 3: 03 AM CLAY ARTISAN CBC WITH AUTO DIFFERENTIAL STAT 10/30/2018 3:03 AM CLAY ARTISAN TROPONIN I STAT 10/30/2018 3:03 AM CLAY ARTISAN PROTIME-INR STAT 10/30/2018 3:03 AM CLAY ARTISAN B-TYPE NATRIURETIC PEPTIDE STAT 10/30/2018 3:03 AM CLAY ARTISAN LIPASE STAT 10/30/2018 3:03 AM CLAY ARTISAN HEMOGLOBIN A1C Routine 10/30/2018 3:03 AM CLAY ARTISAN AMYLASE STAT 10/30/2018 3:03 AM CLAY ARTISAN COMPREHENSIVE METABOLIC PANEL STAT 10/30/2018 3:03 AM CLAY ARTISAN ECG 12-LEAD STAT 10/30/2018 2:47 AM CLAY ARTISAN documented in this encounter Results * EEG (10/31/2018 7:45 AM CLAY ARTISAN) Anatomical Region Laterality Modality EEG Narrative 10/31/2018 8:17 PM CLAY ARTISAN This is a 28 years old patient with history of mental status change. The condition of the patient during tracing was reported to be awake and drowsy. The quality of study is good. The background activity consisted of posterior dominant alpha activity of moderate amplitude. ??There was no epileptiform discharge seen in this tracing. EKG showed regular rate and rhythm Impression: This is a normal EEG during awake and drowsy state. ??There was no epileptiform discharges seen in this tracing. us Lina Montague NP NEUROLOGY ORDERABLES Final R esult * eGFR (10/31/2018 5:23 AM CLAY ARTISAN) Pathologist [facility] [place] eGFR 99 mL/min/1.7 3 m2 SASHA JONES Comment: Interpretive Data Reference Interval Normal ?>/= 90 mL/min/1.73m2 Mildly decreased* ? 60 - 89 mL/min/1.73m2 Mildly to moderately decreased ?45 - 59 mL/min/1.73m2 Moderately to severely decreased ??30 - 44 mL/min/1.73m2 Severely decreased ?15 - 29 mL/min/1.73m2 Kidney Failure ?< 15 ??mL/min/1.73m2 *Relative to young adult level If -Georgian multiply value by 1.16. Estimated glomerular filtration [...] was last reviewed 2016. Blood specimen (specimen) 10/31/2018 5:23 AM CLAY ARTISAN 10/31/2018 5:44 AM CLAY ARTISAN Narrative [facility] - 10/31/2018 6:11 AM CLAY ARTISAN us Lina Montague NP LAB BLOOD ORDERABLES Final R esult [facility] [id number] Department [place] [address] * (ABNORMAL) Differential, auto (10/31/2018 5:23 AM CLAY ARTISAN) Neutrophil abs 4.8 1.7 - 6.5 K/cumm [facility] Imm gran abs 0.0 0.0 - 0.1 K/cumm [facility] Lymphocyte abs 3.6(H) 0.8 - 3.3 K/cumm [facility] Monocyte abs 0.6 0.2 - 0.8 K/cumm [facility] Eosinophil abs 0.3 0.0 - 0.5 K/cumm [facility] Basophil abs 0.0 0.0 - 0.1 K/cumm [facility] Neutrophil pct 51.6 % [facility] Comment: Interpretive Data Percent cell count reference ranges are not reported, since discordance with absolute values may lead to misinterpretation of CBC data. Current Interpretive Data was last revised on 2018. Imm gran pct 0.4 % SASHA Comment: Interpretive Data Percent cell count reference ranges are not reported, since discordance with absolute values may lead to misinterpretation of CBC data. Current Interpretive Data was last revised on 2018. Lymphocyte pct 38.3 % SASHA Comment: Interpretive Data Percent cell count reference ranges are not reported, since discordance with absolute values may lead to misinterpretation of CBC data. Current Interpretive Data was last revised on 2018. Monocyte pct 6.4 % SASHA Comment: Interpretive Data Percent cell count reference ranges are not reported, since discordance with absolute values may lead to misinterpretation of CBC data. Current Interpretive Data was last revised on 2018. Eosinophil pct 3.0 % SASHA Comment: Interpretive Data Percent cell count reference ranges are not reported, since discordance with absolute values may lead to misinterpretation of CBC data. Current Interpretive Data was last revised on 2018. Basophil pct 0.3 % [facility]HA Comment: Interpretive Data Percent cell count reference ranges are not reported, since discordance with absolute values may lead to misinterpretation of CBC data. Current Interpretive Data was last revised on 2018. Blood specimen (specimen) 10/31/2018 5:23 AM CLAY ARTISAN 10/31/2018 5:44 AM CLAY ARTISAN Narrative [facility] - 10/31/2018 5:53 AM CLAY ARTISAN Lina Montague NP LAB BLOOD ORDERABLES Final R esult [facility] [id number] Department [place] [address] * Troponin I (10/31/2018 5:23 AM CLAY ARTISAN) Troponin I <0.03 0.00 - 0.14 ng/mL SASHA Comment: Interpretive Data Normal: ? 0.00 - 0.14 ng/mL Indeterminate: ?0.15 - 0.50 ng/mL RI / Cardiac Muscle Damage: ? >0.50 ng/mL Current interpretive data was last reviewed 2016 Blood specimen (specimen) 10/31/2018 5:23 AM CLAY ARTISAN 10/31/2018 5:44 AM CLAY ARTISAN Narrative [facility] - 10/31/2018 6:11 AM CLAY ARTISAN Lina Montague MEDICAL RECORD RETRIEVAL SPECIALIST LAB BLOOD ORDERABLES Edited Result - Final Performing Organization Address [facility] Co de Phone Number [facility] [id number] [facility] [place] [address] * TSH (10/31/2018 5:23 AM CLAY ARTISAN) Pathologist [facility] [place] Thyroid Stimulating Hormone 1.42 0.45 - 5.33 mcIUnit/mL [facility] Blood specimen (specimen) 10/31/2018 5:23 AM CLAY ARTISAN 10/31/2018 5:44 AM CLAY ARTISAN Narrative [facility] - 10/31/2018 6:19 AM CLAY ARTISAN Kathleen Watters MD LAB BLOOD ORDERABLES Final Re sult Performing Organization Address [facility] de Phone Number [facility] [id number] [place] [address] * (ABNORMAL) Basic metabolic panel (10/31/2018 5:23 AM CLAY ARTISAN) Sodium 138 135 - 145 mmol/L [facility] Potassium, pl 3.9 3.5 - 5.1 mmol/L [facility] Chloride 110 100 - 114 mmol/L [facility] CO2 21(L) 22 - 32 mmol/L [facility] Anion gap 11 8 - 16 mmol/L [facility] BUN 10 8 - 24 mg/dL [facility] Creatinine 0.80 0.60 - 1.30 mg/dL [facility] Glucose 109 70 - 199 mg/dL [facility] Comment: Interpretive Data Fasting glucose >/= 126 [...] interpretive data was last revised 2017. Calcium 8.8 8.4 - 10.5 mg/dL [facility] Blood specimen (specimen) 10/31/2018 5:23 AM CLAY ARTISAN 10/31/2018 5:44 AM CLAY ARTISAN Narrative [facility] - 10/31/2018 6:11 AM CLAY ARTISAN Lina Montague NP LAB BLOOD ORDERABLES Final R esult [facility] [id number] Department of Laboratories [place] [id number] * (ABNORMAL) CBC with auto differential (10/31/2018 5:23 AM CLAY ARTISAN) WBC 9.3 3.8 - 9.9 K/cumm [facility] Hgb 11.9 11.9 - 15.5 g/dL [facility] Hct 38.2 35.6 - 45.5 % [facility] Plt 277 150 - 400 K/cumm [facility] MPV 9.4 9.1 - 12.3 fL [facility] RBC 4.10 3.90 - 5.20 M/cumm [facility] MCV 93.2 81.3 - 96.4 fL [facility] MCH 29.0 27.1 - 33.3 pg [facility] MCHC 31.2(L) 32.3 - 35.7 g/dL [facility] RDW CV 12.7 11.1 - 14.9 % [facility] RDW SD 43.5 35.7 - 48.1 fL [facility] NRBC abs 0.00 0.00 - 0.01 K/cumm [facility] Blood specimen (specimen) 10/31/2018 5:23 AM CLAY ARTISAN 10/31/2018 5:44 AM CLAY ARTISAN Narrative [facility] - 10/31/2018 5:53 AM CLAY ARTISAN us Lina Montague MEDICAL RECORD RETRIEVAL SPECIALIST LAB BLOOD ORDERABLES Final R esult [facility] [id number] Department [place] [address] * (ABNORMAL) Lipid panel (10/31/2018 5:23 AM CLAY ARTISAN) Cholesterol 118 30 - 199 mg/dL SASHA JONES Comment: Interpretive Data Ages < or = 19 years ??Acceptable: ? <170 mg/dL ??Borderline high: ??170-199 mg/dL ??High: ? >or= 200 mg/dL Ages > or = 20 years ??Desirable: ?<200 mg/dL ??Borderline high: ??200-239 mg/dL ??High: ? >or= 240 mg/dL Literature References: 1. Expert Panel on Integrated Guidelines for Cardiovascular Health and Risk Reduction in Children and Adolescents. Pediatrics 2011;128:S213 2. NCEP Expert Panel. Circulation 2004;110:227 Current Interpretive Data was last revised on 2018. Triglycerides 83 <=149 mg/dL SASHA JONES Comment: Interpretive Data Ages < or = 9 years ??Acceptable: ? <75 mg/dL ??Borderline high: ??75-99 mg/dL ??High: ? >or= 100 mg/dL Ages 10 to 20 years ??Acceptable: ? <90 mg/dL ??Borderline high: ??90-129 mg/dL ??High: ? >or= 130 mg/dL Ages > or = 20 years ??Desirable: ?<150 mg/dL ??Borderline high: ??150-199 mg/dL ??High: ? 200-499 mg/dL ?Very high: ?? >or= 499 mg/dL Literature References: 1. Expert Panel on Integrated Guidelines for Cardiovascular Health and Risk Reduction in Children and Adolescents. Pediatrics 2011;128:S213 2. NCEP Expert Panel. Circulation 2004;110:227 Current Interpretive Data was last revised on 2018. HDL 29(L) >=40 mg/dL SASHA JONES Comment: Interpretive Data Ages < or = 19 years ??Acceptable: ? >45 mg/dL ??Borderline low: ?? 40-45 mg/dL ??Low: ? <40 mg/dL Ages > or = 20 years ??Desirable: ?>or= 60 mg/dL ??Low: ? <40 mg/dL Literature References: 1. Expert Panel on Integrated Guidelines for Cardiovascular Health and Risk Reduction in Children and Adolescents. Pediatrics 2011;128:S213 2. NCEP Expert Panel. Circulation 2004;110:227 Current Interpretive Data was last revised on 2018. LDL, calculated 72 <=129 mg/dL SASHA Comment: Interpretive Data Ages < or = 19 years ??Acceptable: ? <110 mg/dL ??Borderline high: ??110-129 mg/dL ??High: ?>or= 130 mg/dL Ages > or = 20 years ??Optimal: ? <100 mg/dL ??Near optimal: ?100-129 mg/dL ??Borderline high: ?? 130-159 mg/dL ??High: ?>160 mg/dL Literature References: 1. Expert Panel on Integrated Guidelines for Cardiovascular Health and Risk Reduction in Children and Adolescents. Pediatrics 2011;128:S213 2. NCEP Expert Panel. Circulation 2004;110:227 Current Interpretive Data was last revised on 2018. Non-HDL Cholesterol 89 mg/dL SASHA JONES Comment: Interpretive Data Ages < or = 19 years ??Acceptable: ?<120 mg/dL ??Borderline high: ??120-144 mg/dL ??High: ?>145 mg/dL Ages > or = 20 years ??When triglycerides are >200 mg/dL, Non-HDL cholesterol is a secondary target of ? therapy with treatment goals that are 30 mg/dL greater than the LDL cholesterol target. ? Literature References: 1. Expert Panel on Integrated Guidelines for Cardiovascular Health and Risk Reduction in Children and Adolescents. Pediatrics 2011;128:S213 2. NCEP Expert Panel. Circulation 2004;110:227 Current Interpretive Data was last revised on 2018. Chol/HDL ratio 4 [facility] Blood specimen (specimen) 10/31/2018 5:23 AM CLAY ARTISAN 10/31/2018 5:44 AM CLAY ARTISAN Narrative [facility] - 10/31/2018 6:11 AM CLAY ARTISAN us Kathleen Watters MD LAB BLOOD ORDERABLES Final Re sult Performing Organization Address [facility] Co de Phone Number [facility] [phone] Department [place] [address] * Troponin I (10/30/2018 6:12 PM CLAY ARTISAN) Pathologist [facility] [place] Troponin I <0.03 0.00 - 0.14 ng/mL SASHA Comment: Interpretive Data Normal: ? 0.00 - 0.14 ng/mL Indeterminate: ?0.15 - 0.50 ng/mL RI / Cardiac Muscle Damage: ? >0.50 ng/mL Current interpretive data was last reviewed 2016 Blood specimen (specimen) 10/30/2018 6:12 PM [facility]LAY ARTISAN 10/30/2018 6:32 PM [facility]LAY ARTISAN Narrative [facility] - 10/30/2018 7:00 PM CLAY ARTISAN us Lina Montague NP LAB BLOOD ORDERABLES Final R esult Performing Organization Address [facility]/ZIP Co de Phone Number [facility] [id number] Department [place] [address] * MRA Carotids WO Contrast (10/30/2018 4:24 PM CLAY ARTISAN) Anatomical Region Laterality Modality Head and Neck N/A Magnetic Resonan ce 10/31/2018 9:31 AM CLAY ARTISAN Impressions 10/31/2018 9:34 AM CLAY ARTISAN UNREMARKABLE EXAM. NO CERVICAL INTERNAL CAROTID STENOSIS PER NASCET CRITERIA ON EITHER SIDE. Electronically signed by: Angeli Peralta M.D. Narrative 10/31/2018 9:34 AM CLAY ARTISAN RESULT: Examination: ??MRA CAROTIDS WO CONTRAST Date: 10/30/2018 2:55 PM Clinical History: Numbness and tingling to the right side of face. Stroke protocol. Technique: MRA Cervical vasculature centered carotid bifurcation obtained using 2D TOF technique. Comparison: None. Findings: The visualized mid and distal common carotid arteries patent bilaterally. ??There is no cervical internal carotid stenosis per NASCET criteria on either side. The vertebral arteries are patent bilaterally with right dominant. Symmetric signal loss at C1-C2 is seen likely saturation artifact Procedure Note Angeli Peralta MD - 10/31/2018 RESULT: Examination: MRA CAROTIDS WO CONTRAST Date: 10/30/2018 2:55 PM Clinical History: Numbness and tingling to the right side of face. Stroke protocol. Technique: MRA Cervical vasculature centered carotid bifurcation obtained using 2D TOF technique. Comparison: None. Findings: The visualized mid and distal common carotid arteries patent bilaterally. There is no cervical internal carotid stenosis per NASCET criteria on either side. The vertebral arteries are patent bilaterally with right dominant. Symmetric signal loss at C1-C2 is seen likely saturation artifact IMPRESSION: UNREMARKABLE EXAM. NO CERVICAL INTERNAL CAROTID STENOSIS PER NASCET CRITERIA ON EITHER SIDE. Electronically signed by: Angeli Peralta M.D. us Kathleen Watters MD IMG MRI PROCEDURES Final Resu lt * MRI Brain WO Contrast (10/30/2018 4:24 PM CLAY ARTISAN) Anatomical Region Laterality Modality Head and Neck N/A Magnetic Resonan ce 10/30/2018 5:24 PM CLAY ARTISAN Impressions 10/30/2018 5:27 PM CLAY ARTISAN UNREMARKABLE MRI BRAIN. ??NO ACUTE INTRACRANIAL PATHOLOGY. Electronically signed by: Angeli Peralta M.D. Narrative 10/30/2018 5:27 PM CLAY ARTISAN Exam: MRI BRAIN WITHOUT CONTRAST: Clinical history: Numbness and tingling right side of face. ??Stroke protocol. TECHNIQUE: MRI brain obtained using multiplanar multisequence images : COMPARISON: CT head 10/30/2018. FINDINGS: The ventricles sulci and cisterns are within normal limits for age.There is no parenchymal lesion..No midline shift mass effect or extra-axial collection is seen. No abnormal intracranial enhancement is seen.. No diffusion restriction noted to suggest acute infarct..No evidence for acute hemorrhage is seen on available sequences..Flow voids are seen in the basilar, cavernous internal carotid arteries, and superior sagittal sinus. The cerebellar tonsils are normally positioned. The orbits are unremarkable.. The pituitary is not enlarged.. The visualized sinuses and mastoids are clear..Calvarial marrow signal is unremarkable.. Procedure Note Angeli Peralta MD - 10/30/2018 Exam: MRI BRAIN WITHOUT CONTRAST: Clinical history: Numbness and tingling right side of face. Stroke protocol. TECHNIQUE: MRI brain obtained using multiplanar multisequence images : COMPARISON: CT head 10/30/2018. FINDINGS: The ventricles sulci and cisterns are within normal limits for age.There is no parenchymal lesion..No midline shift mass effect or extra-axial collection is seen. No abnormal intracranial enhancement is seen.. No diffusion restriction noted to suggest acute infarct..No evidence for acute hemorrhage is seen on available sequences..Flow voids are seen in the basilar, cavernous internal carotid arteries, and superior sagittal sinus. The cerebellar tonsils are normally positioned. The orbits are unremarkable.. The pituitary is not enlarged.. The visualized sinuses and mastoids are clear..Calvarial marrow signal is unremarkable.. IMPRESSION: UNREMARKABLE MRI BRAIN. NO ACUTE INTRACRANIAL PATHOLOGY. Electronically signed by: Angeli Peralta M.D. us Kathleen Watters MD IM MRI PROCEDURES Final Resu lt * TRANSTHORACIC ECHO (TTE) COMPLETE W DOPPLER/CF WO CONTRAST (10/30/2018 4:10 PM [facility]) Anatomical Region Laterality Modality Ultrasound 10/30/2018 3:48 PM [facility] Narrative 10/30/2018 9:26 PM [facility] [address], [place] [address] Echocardiogram Report Patient Name: LORENA FLORES S : 1990 Study Date: 10/30/2018 3:48:58 PM Gender: F Tech: NA Location: [id number] Ref.Physician: KATHLEEN WATTERS Height(Cm): 170 BSA: 1.91 Weight(Kg): 77 Heart Rate: 82 BP: 111/74 Quality: Good Order Physician: Jn NOGUERA Procedures: Echocardiographic Report: Transthoracic echocardiogram with 2D, M-Mode, and color Doppler examination with saline contrast study. Indications: Stroke. Measurements: 2D/M Mode ?Doppler ? Measurement ?Value ?Normal Range ? Measurement ?Value ?Normal Range ? EF Teich 2D ?69.6 ? [ 55.0 - 70.0 ] percent ?CONRADO Vmax ? 3.22 ? [ 2.00 - 4.00 ] cm2 ? EF Mod 4C ?65.2 ? [ 55.0 - 70.0 ] percent ?AV Mean PG ? 4 ?[ 2 - 4 ] mmHg ? LVIDd 2D ? 4.63 ? [ 3.90 - 5.30 ] cm ? AV Peak Jad ?1.43 ? [ 1.00 - 1.70 ] m/s ? LVIDs 2D ? 2.82 ? [ 2.30 - 3.90 ] cm ? AV VTI ? 28.20 ?cm ? LVPWd 2D ? 0.83 ? [ 0.60 - 1.00 ] cm ? LVOT Diam ?2.21 ? [ 1.70 - 2.10 ] cm ? IVSd 2D ?0.74 ? [ 0.60 - 0.90 ] cm ? LVOT Peak Jad ?1.21 ? [ 0.70 - 1.10 ] m/s ? LA Dimension MM ?3.34 ? [ 2.70 - 3.80 ] cm ? LVOT VTI ? 24.62 ?[ 20.00 - 30.00 ] cm ? AoR Diam MM ?3.22 ? [ 2.60 - 3.70 ] cm ? MV E Peak Jad ?0.79 ? [ 0.60 - 1.30 ] m/s ? ACS MM ? 2.73 ? cm ? MV A Peak Jad ?0.59 ? [ 1.00 - 1.20 ] m/s ? MV PHT ? 62 ? [ 20 - 100 ] msec ? MV Decel Time ?239 ?[ 104 - 258 ] msec ? PV Peak Jad ?0.78 ? [ 0.40 - 0.80 ] m/s ? E' ? 0.10 ? E/E' ? 9.00 ? Findings: Atrial Septum: Normal atrial septum. Left Ventricle: Normal left ventricular systolic function with no focal wall motion abnormalities. Normal left ventricular wall thickness. Normal left ventricular diastolic function. Ejection fraction is measured at 65 %. Left Atrium: The left atrium is normal in size. Right Ventricle: Normal right ventricular size. Normal right ventricular systolic function. Right Atrium: The right atrium is normal in size. Aortic Valve: Normal structure of the aortic valve. Mitral Valve: Normal structure of the mitral valve. Trivial regurgitation of the mitral valve. Pulmonic Valve: Normal structure of the pulmonic valve. Tricuspid Valve: Normal structure of the tricuspid valve. Normal right ventricular systolic pressure. Trivial regurgitation in the tricuspid valve. Pericardium: Normal pericardium with no significant pericardial effusion. Aorta: Normal aortic root. IVC: Normal size and normal respiratory collapse consistent with normal right atrial pressure (<5 mmHg). Pulmonary Artery: Normal pulmonary artery size. Conclusions: Technically difficult study with limited views. Normal 2D/Doppler-echocardiographic study with normal left ventricular function and no significant valvular abnormalities. Electronically Signed By: Amisha David MD 2018-10-30 21:26:47 [facility] CC: CC: Procedure Note Amisha David MD - 10/30/2018 [place] [address] Echocardiogram Report Patient Name: LORENA FLORES SPatient ID: [id number] : [id number] Date: 10/30/2018 3:48:58 PM Gender: FAccession #: [id number] Tech: NALocation: [id number] Ref.Physician: KATHLEEN WATTERSHeight(Cm): 170 BSA: 1.91Weight(Kg): 77 Heart Rate: 82BP: 111/74 Quality: GoodOrder Physician: Jn NOGUERA Procedures: Echocardiographic Report: Transthoracic echocardiogram with 2D, M-Mode, and color Dopplerexamination with saline contrast study. Indications: Stroke. Measurements: 2D/M Mode Doppler Measurement Value Normal Range MeasurementValue Normal Range EF Teich 2D 69.6 [ 55.0 - 70.0 ] percent CONRADO Vmax3.22 [ 2.00 - 4.00 ] cm2 EF Mod 4C 65.2 [ 55.0 - 70.0 ] percent AV Mean PG 4[ 2 - 4 ] mmHg LVIDd 2D 4.63 [ 3.90 - 5.30 ] cm AV Peak Vel1.43 [ 1.00 - 1.70 ] m/s LVIDs 2D 2.82 [ 2.30 - 3.90 ] cm AV VTI28.20 cm LVPWd 2D 0.83 [ 0.60 - 1.00 ] cm LVOT Diam2.21 [ 1.70 - 2.10 ] cm IVSd 2D 0.74 [ 0.60 - 0.90 ] cm LVOT Peak Vel1.21 [ 0.70 - 1.10 ] m/s LA Dimension MM 3.34 [ 2.70 - 3.80 ] cm LVOT VTI24.62 [ 20.00 - 30.00 ] cm AoR Diam MM 3.22 [ 2.60 - 3.70 ] cm MV E Peak Vel0.79 [ 0.60 - 1.30 ] m/s ACS MM 2.73 cm MV A Peak Vel0.59 [ 1.00 - 1.20 ] m/s MV PHT 62[ 20 - 100 ] msec MV Decel Psrb536 [ 104 - 258 ] msec PV Peak Vel0.78 [ 0.40 - 0.80 ] m/s E'0.10 E/E'9.00 Findings: Atrial Septum: Normal atrial septum. Left Ventricle: Normal left ventricular systolic function with no focal wall motionabnormalities. Normal left ventricular wall thickness. Normal left ventricular diastolicfunction. Ejection fraction is measured at 65 %. Left Atrium: The left atrium is normal in size. Right Ventricle: Normal right ventricular size. Normal right ventricular systolicfunction. Right Atrium: The right atrium is normal in size. Aortic Valve: Normal structure of the aortic valve. Mitral Valve: Normal structure of the mitral valve. Trivial regurgitation of the mitralvalve. Pulmonic Valve: Normal structure of the pulmonic valve. Tricuspid Valve: Normal structure of the tricuspid valve. Normal right ventricular systolicpressure. Trivial regurgitation in the tricuspid valve. Pericardium: Normal pericardium with no significant pericardial effusion. Aorta: Normal aortic root. IVC: Normal size and normal respiratory collapse consistent with normal rightatrial pressure (<5 mmHg). Pulmonary Artery: Normal pulmonary artery size. Conclusions: Technically difficult study with limited views. Normal 2D/Doppler-echocardiographic study with normal left ventricularfunction and no significant valvular abnormalities. Electronically Signed By: Amisha David MD 2018-10-30 21:26:47 [facility] CC: CC: us Kathleen Watters MD CV ECHO PROCEDURES Final Resu lt * Troponin I (10/30/2018 4:00 PM [facility]) Troponin I <0.03 0.00 - 0.14 ng/mL [facility] JONES Comment: Interpretive Data Normal: ? 0.00 - 0.14 ng/mL Indeterminate: ?0.15 - 0.50 ng/mL RI / Cardiac Muscle Damage: ? >0.50 ng/mL Current interpretive data was last reviewed 2016 Blood specimen (specimen) 10/30/2018 4:00 PM [facility] 10/30/2018 4:05 PM [facility] Narrative [facility]HA JONES - 10/30/2018 4:45 PM [facility] us Kathleen Watters MD LAB BLOOD ORDERABLES Final Re sult [facility] [address] Department [place] [address] * MRA Head WO Contrast (10/30/2018 3:40 PM [facility]) Anatomical Region Laterality Modality Head and Neck N/A Magnetic Resonan ce 10/30/2018 4:01 PM [facility] Impressions 10/30/2018 4:10 PM [facility] MILD ASYMMETRY LEFT PRECENTRAL MCA BRANCH OTHERWISE UNREMARKABLE MRA BRAIN. Electronically signed by: Angeli Peralta M.D. Narrative 10/30/2018 4:10 PM [facility] RESULT: Examination: ??MRA HEAD WO CONTRAST Date: 10/30/2018 2:30 PM Clinical History: ?? Numbness and tingling to right side of face. Hypertension. Technique: MRA Brain obtained using 3D TOF technique centered at the [place]. Comparison:None. Findings: The intradural segment of the vertebral arteries, basilar and posterior cerebral are patent bilaterally. ??No segment stenosis is seen. The intracranial internal carotid artery is widely patent on both sides. ??The anterior cerebral from A1 to A2 segment is unremarkable. The MCA from M1 to M2 segment branches seen are patent following exception. ??There is mild attenuation of the left precentral branch seen only in the coronal MIPS reconstruction which may represent stenosis or artifact. There is no [place] aneurysm. Patent anterior and left posterior communicating artery noted Procedure Note Angeli Peralta MD - 10/30/2018 RESULT: Examination: MRA HEAD WO CONTRAST Date: 10/30/2018 2:30 PM Clinical History: Numbness and tingling to right side of face. Hypertension. Technique: MRA Brain obtained using 3D TOF technique centered at the [place]. Comparison:None. Findings: The intradural segment of the vertebral arteries, basilar and posterior cerebral are patent bilaterally. No segment stenosis is seen. The intracranial internal carotid artery is widely patent on both sides. The anterior cerebral from A1 to A2 segment is unremarkable. The MCA from M1 to M2 segment branches seen are patent following exception. There is mild attenuation of the left precentral branch seen only in the coronal MIPS reconstruction which may represent stenosis or artifact. There is no [place] aneurysm. Patent anterior and left posterior communicating artery noted IMPRESSION: MILD ASYMMETRY LEFT PRECENTRAL MCA BRANCH OTHERWISE UNREMARKABLE MRA BRAIN. Electronically signed by: Angeli Peralta M.D. us Kathleen Watters MD IMG MRI PROCEDURES Final Resu lt * ECG 12 lead (10/30/2018 1:20 PM [facility]) Patient age 28 years [facility] Interpretation Text SINUS RHYTHMNONSPECIFIC ST & T-WAVE ABNORMALITYBORDERLINE ECGPREVIOUS TRACIN10/30/2018 08.40 [facility] Comment:Physician Interprete r Dr. Rodger Camara M.D. Ventricular Rate EKG/Min 75 /min [facility] P Wave Duration 131 ms [facility] QRS-Interval (MSEC) 78 ms [facility] IA-Interval (MSEC) 158 ms [facility] QT Interval 366 ms [facility] QTc 392 ms [facility] QTC Interval ms [facility] P Dixon 56 deg [facility] QRS Dixon 42 deg [facility] T Dixon -10 deg [facility] 10/30/2018 1:20 PM [facility] us Lina Montague MEDICAL RECORD RETRIEVAL SPECIALIST ECG ORDERABLES Final Result [facility] * (ABNORMAL) D-dimer, quantitative (10/30/2018 11:54 AM [facility]) D-dimer 305(H) 150 - 230 ng/mL D-DU [facility] JONES Comment: Interpretive Data This D-dimer test is approved by the FDA to exclude suspected PE and DVT in outpatients when the result is <230 ng/ml D-DU in conjunction with a pre-test probability score of low or moderate using the Wells Criteria. Current Interpretive Data was last revised on 2015. Blood specimen (specimen) 10/30/2018 11:54 AM [facility] 10/30/2018 12:12 PM [facility] Narrative [facility] - 10/30/2018 12:46 PM [facility] us Lina Montague NP LAB BLOOD ORDERABLES Final R esult Performing Organization Address [facility] de Phone Number [facility] [phone] Department [employer] [place], [place] [id number] * Troponin I (10/30/2018 11:54 AM [facility]) Troponin I <0.03 0.00 - 0.14 ng/mL [facility] JONES Comment: Interpretive Data Normal: ? 0.00 - 0.14 ng/mL Indeterminate: ?0.15 - 0.50 ng/mL RI / Cardiac Muscle Damage: ? >0.50 ng/mL Current interpretive data was last reviewed 2016 Blood specimen (specimen) 10/30/2018 11:54 AM [facility] 10/30/2018 12:11 PM [facility] Narrative [facility]HA - 10/30/2018 12:36 PM [facility] us Kathleen Watters MD LAB BLOOD ORDERABLES Final Re sult Performing Organization Address [facility] Co de Phone Number [facility] [address] [place] [address] * Troponin I (10/30/2018 8:47 AM [facility]) Pathologist [facility] Troponin I <0.03 0.00 - 0.14 ng/mL [facility] JONES Comment: Interpretive Data Normal: ? 0.00 - 0.14 ng/mL Indeterminate: ?0.15 - 0.50 ng/mL RI / Cardiac Muscle Damage: ? >0.50 ng/mL Current interpretive data was last reviewed 2016 Blood specimen (specimen) 10/30/2018 8:47 AM [facility] 10/30/2018 8:49 AM [facility] Narrative SASHA JONES - 10/30/2018 9:11 AM [facility] Kathleen Watters MD LAB BLOOD ORDERABLES Final Re sult Performing Organization Address City/State/[facility] Co de Phone Number [facility] [phone] Department [place] [address] * ECG 12 lead (10/30/2018 8:40 AM [facility]) Pathologist [facility] Patient age 28 years [facility] Interpretation Text SINUS RHYTHMST DEVIATION AND MODERATE T-WAVE ABNORMALITY, CONSIDER ANTEROLATERAL ISCHEMIAABNORMAL ECGPREVIOUS TRACIN10/30/2018 02.47 [facility] Comment:Physician Interprete r Dr. Rodger Camara M.D. Ventricular Rate EKG/Min 62 /min [facility] P Wave Duration 131 ms [facility] QRS-Interval (MSEC) 86 ms [facility] IA-Interval (MSEC) 157 ms [facility] QT Interval 379 ms [facility] QTc 382 ms [facility] QTC Interval ms [facility] P Dixon 47 deg [facility] QRS Dixon 18 deg [facility] T Dixon -18 deg [facility] 10/30/2018 8:40 AM [facility] Kathleen Watters MD ECG ORDERABLES Final Result [facility] * POCT glucose (10/30/2018 7:27 AM [facility]) Glucose, POC 88 70 - 199 mg/dL [facility] Blood specimen (specimen) 10/30/2018 7:27 AM [facility] 10/30/2018 7:27 AM [facility] Narrative [facility] - 10/30/2018 7:45 AM [facility] Kathleen Watters MD LAB POCT ORDERABLES - DEVICE Final Result Performing Organization Address [facility] Co de Phone Number [facility] [phone] [place] [address] * Urine culture (10/30/2018 4:00 AM [facility]) Report Final Report: Less than 100,000 colonies/mL (clinically insignificant growth based on current clinical standards) [facility] Comment:Testing performed by : [facility], [address] [place]., [address] Organism (CLINICALLY INSIGNIFICANT GROWTH [facility] Urine, bladder 10/30/2018 4: 00 AM [facility] 10/30/2018 7:39 AM [facility] Narrative [facility] - 10/31/2018 8:03 AM [facility] Urine culture reflexed based upon urinalysis results. Testing performed by [facility] Microbiology Laboratory ([phone]) us Truong Rodriguez MD LAB MICROBIOLOGY - GENERAL ORDERABLES Final Result Performing Organization Address [facility]/ZIP Co de Phone Number [facility] [address] Department [employer] [place], [place] [phone] * (ABNORMAL) Urinalysis, microscopic only (10/30/2018 4:00 AM [facility]) WBC, ur 21-50(A) 0 - 5 /HPF [facility] RBC, ur 6-10(A) 0 - 5 /HPF [facility] Epithelial cells, squamous, ur 1-5 0 - 5 /HPF [facility] Yeast, ur 4+(A) [facility] Mucous, ur Present(A) [facility] Urine, bladder 10/30/2018 4: 00 AM [facility] 10/30/2018 4:12 AM [facility] Narrative [facility] - 10/30/2018 4:27 AM [facility] Truong Rodriguez MD LAB URINE ORDERABLES Final Result Performing Organization Address [facility] Co de Phone Number [facility] JONES [address] Department [place] [address] * (ABNORMAL) Urinalysis reflex to microscopic and culture Urine, bladder (10/30/2018 4:00 AM [facility]) Color, ur Yellow Yellow [facility] Clarity, ur Cloudy(A) Clear [facility] Specific gravity, ur 1.011 1.010 - 1.025 [facility] pH, urine 7.0 [facility] Protein, ur ql Negative Negative [facility] Glucose, ur ql Negative Negative [facility] Ketones, ur Negative Negative [facility] Bilirubin, ur Negative Negative [facility] Blood, ur Negative Negative [facility] Urobilinogen, ur <2.0 <2.0 mg/dL [facility] Nitrite, ur Negative Negative [facility] Leukocyte esterase, ur 3+(A) Negative [facility] Urine, bladder 10/30/2018 4: 00 AM [facility] 10/30/2018 4:12 AM [facility] Narrative [facility] - 10/30/2018 4:23 AM [facility] ?? Urine pH is affected by diet, medications, systemic acid-base disturbances, and renal tubular function. ??pH may affect urinary stone formation. ??For example, urine pH below 6.0 may help reduce the tendency for calcium phosphate stones and pH greater than 6.0 may reduce the tendency for uric acid stone formation. Source: [facility]. Last revised 12-08-2017 us Truong Rodriguez MD LAB MICROBIOLOGY - GENERAL ORDERABLES Final Result Performing Organization Address [facility] Co de Phone Number [facility] JONES [address] Department [place] [address] * CT Head WO Contrast (10/30/2018 3:40 AM [facility]) Anatomical Region Laterality Modality Head and Neck N/A Computed Tomogra phy 10/30/2018 7:59 AM [facility] Impressions 10/30/2018 8:02 AM [facility] No acute intracranial process. Electronically signed by: Nicholas Gonzales M.D. Narrative 10/30/2018 8:02 AM [facility] EXAM: CT head without contrast DATE: 10/30/2018 3:25 AM CLINICAL HISTORY: Numbness and tingling to the right side of the face. TECHNIQUE: Computed tomographic images of the head were obtained in the axial plane in both brain and bone windows without the administration of contrast. ??Comparison date is 07/31/2018 Findings: The cerebrum, cerebellum and brainstem are normal with normal payne-white differentiation. The ventricles and basilar cisterns are normal. The midline structures are normal. There is no evidence of acute or evolving infarct, contusion or intracranial hemorrhage. The visible paranasal sinuses and mastoid air cells are clear. There is no acute or healing skull fracture. Procedure Note Nicholas Gonzales MD - 10/30/2018 EXAM: CT head without contrast DATE: 10/30/2018 3:25 AM CLINICAL HISTORY: Numbness and tingling to the right side of the face. TECHNIQUE: Computed tomographic images of the head were obtained in the axial plane in both brain and bone windows without the administration of contrast. Comparison date is 07/31/2018 Findings: The cerebrum, cerebellum and brainstem are normal with normal payne-white differentiation. The ventricles and basilar cisterns are normal. The midline structures are normal. There is no evidence of acute or evolving infarct, contusion or intracranial hemorrhage. The visible paranasal sinuses and mastoid air cells are clear. There is no acute or healing skull fracture. IMPRESSION: No acute intracranial process. Electronically signed by: Nicholas Gonzales M.D. us Truong Rodriguez MD IM CT PROCEDURES Final Res ult * XR Chest 1 View (10/30/2018 3:39 AM [facility]) Anatomical Region Laterality Modality Body, Chest N/A Computed Radiogr aphy 10/30/2018 8:09 AM [facility] Impressions 10/30/2018 8:10 AM [facility] IMPRESSION: NO ACUTE PULMONARY CHANGE. Electronically signed by: Don Barkley M.D. Narrative 10/30/2018 8:10 AM [facility] RESULT: HISTORY: Chest pain EXAMINATION: XR CHEST [...] MD IMG XR PROCEDURES Final Res ult * Hemoglobin A1c (10/30/2018 3:03 AM [facility]) Hgb A1C 5.7 4.0 - 6.0 % [facility] Comment: Interpretive Data Hemoglobin A1c ADA Interpretive Guidelines ??<7% ?? Glycemia controlled ??>8% ?? Hyperglycemia, additional action recommended [place] Immunochemical Method Current interpretive data was last revised on 2016 Testing performed by: [facility], [place] [address] Estimated Average Glucose 117 mg/dL [facility] Comment:Testing performed by : [facility], [place] [address] Blood specimen (specimen) 10/30/2018 3:03 AM [facility] 10/30/2018 1:25 PM [facility] Narrative [facility] - 10/30/2018 3:09 PM [facility] us Kathleen Watters MD LAB BLOOD ORDERABLES Final Re sult [facility] [address] [place] [address] * eGFR (10/30/2018 3:03 AM [facility]) eGFR 112 mL/min/1.7 3 m2 [facility] Comment: Interpretive Data Reference Interval Normal ?>/= 90 mL/min/1.73m2 Mildly decreased* ? 60 - 89 mL/min/1.73m2 Mildly to moderately decreased ?45 - 59 mL/min/1.73m2 Moderately to severely decreased ??30 - 44 mL/min/1.73m2 Severely decreased ?15 - 29 mL/min/1.73m2 Kidney Failure ?< 15 ??mL/min/1.73m2 *Relative to young adult level If -Georgian multiply value by 1.16. Estimated glomerular filtration [...] was last reviewed 2016. Blood specimen (specimen) 10/30/2018 3:03 AM [facility] 10/30/2018 3:06 AM [facility] Narrative [facility] - 10/30/2018 3:23 AM [facility] us Truong Rodriguez MD LAB BLOOD ORDERABLES Final Result Performing Organization Address [facility] Co de Phone Number [facility] JONES [address] [place] [address] * (ABNORMAL) Protime-INR (10/30/2018 3:03 AM [facility]) PT 13.9(H) 9.5 - 13.0 sec [facility] IN[facility] 1.23(H) 0.90 - 1.20 [facility] Blood specimen (specimen) 10/30/2018 3:03 AM [facility] 10/30/2018 3:15 AM [facility] Narrative [facility] - 10/30/2018 3:31 AM [facility] Truong Rodriguez MD LAB BLOOD ORDERABLES Final Result Performing Organization Address [facility] Co de Phone Number [facility] JONES [address] [place] [address] * B-type natriuretic peptide (10/30/2018 3:03 AM [facility]) B-Type Natriuretic Peptide (BNP) 10 0 - 100 pg/mL [facility] Blood specimen (specimen) 10/30/2018 3:03 AM [facility] 10/30/2018 3:15 AM [facility] Narrative [facility] - 10/30/2018 3:42 AM [facility] Truong Rodriguez MD LAB BLOOD ORDERABLES Final Result Performing Organization Address [facility]/ZIP Co de Phone Number [facility] JONES [address] [address] [place] [address] * Lipase (10/30/2018 3:03 AM [facility]) Lipase 36 20 - 50 Units/L [facility] Blood specimen (specimen) 10/30/2018 3:03 AM [facility] 10/30/2018 3:15 AM [facility] Narrative [facility] - 10/30/2018 3:37 AM [facility] us Truong Rodriguez MD LAB BLOOD ORDERABLES Final Result [facility] [address] [place] [address] * Amylase (10/30/2018 3:03 AM [facility]) Pathologist [facility] Amylase 46 35 - 100 Units/L [facility] Blood specimen (specimen) 10/30/2018 3:03 AM [facility] 10/30/2018 3:15 AM [facility] Narrative [facility] - 10/30/2018 3:37 AM [facility] us Truong Rodriguez MD LAB BLOOD ORDERABLES Final Result Performing Organization Address City/[facility] Co de Phone Number [facility] JONES [address] [address] Department [place] [address] * (ABNORMAL) Differential, auto (10/30/2018 3:03 AM [facility]) Pathologist [facility] Neutrophil abs 6.6(H) 1.7 - 6.5 K/cumm [facility] Imm gran abs 0.0 0.0 - 0.1 K/cumm [facility] Lymphocyte abs 2.6 0.8 - 3.3 K/cumm [facility] Monocyte abs 0.6 0.2 - 0.8 K/cumm [facility] Eosinophil abs 0.2 0.0 - 0.5 K/cumm [facility] Basophil abs 0.0 0.0 - 0.1 K/cumm [facility] Neutrophil pct 65.8 % [facility] Comment: Interpretive Data Percent cell count reference ranges are not reported, since discordance with absolute values may lead to misinterpretation of CBC data. Current Interpretive Data was last revised on 2018. Imm gran pct 0.5 % [facility] Comment: Interpretive Data Percent cell count reference ranges are not reported, since discordance with absolute values may lead to misinterpretation of CBC data. Current Interpretive Data was last revised on 2018. Lymphocyte pct 25.7 % [facility] Comment: Interpretive Data Percent cell count reference ranges are not reported, since discordance with absolute values may lead to misinterpretation of CBC data. Current Interpretive Data was last revised on 2018. Monocyte pct 5.5 % [facility] Comment: Interpretive Data Percent cell count reference ranges are not reported, since discordance with absolute values may lead to misinterpretation of CBC data. Current Interpretive Data was last revised on 2018. Eosinophil pct 2.1 % [facility] Comment: Interpretive Data Percent cell count reference ranges are not reported, since discordance with absolute values may lead to misinterpretation of CBC data. Current Interpretive Data was last revised on 2018. Basophil pct 0.4 % SASHA Comment: Interpretive Data Percent cell count reference ranges are not reported, since discordance with absolute values may lead to misinterpretation of CBC data. Current Interpretive Data was last revised on 2018. Blood specimen (specimen) 10/30/2018 3:03 AM [facility] 10/30/2018 3:06 AM [facility] Narrative SASHA - 10/30/2018 3:08 AM [facility] Truong Rodriguez MD LAB BLOOD ORDERABLES Final Result SASHA [id number] Department of Laboratories [place] [id number] * Troponin I (10/30/2018 3:03 AM [facility]) Troponin I <0.03 0.00 - 0.14 ng/mL SASHA Comment: Interpretive Data Normal: ? 0.00 - 0.14 ng/mL Indeterminate: ?0.15 - 0.50 ng/mL RI / Cardiac Muscle Damage: ? >0.50 ng/mL Current interpretive data was last reviewed 2016 Blood specimen (specimen) 10/30/2018 3:03 AM [facility] 10/30/2018 3:06 AM [facility] Narrative SASHA - 10/30/2018 3:27 AM [facility] Truong Rodriguez MD LAB BLOOD ORDERABLES Final Result [facility] [address] Department [place] [address] * (ABNORMAL) Comprehensive metabolic panel (10/30/2018 3:03 AM [facility]) Sodium 137 135 - 145 mmol/L [facility] Potassium, pl 3.0(L) 3.5 - 5.1 mmol/L [facility] Chloride 109 100 - 114 mmol/L [facility] CO2 21(L) 22 - 32 mmol/L [facility] Anion gap 10 8 - 16 mmol/L [facility] BUN 8 8 - 24 mg/dL [facility] Creatinine 0.72 0.60 - 1.30 mg/dL [facility] Glucose 136 70 - 199 mg/dL [facility] Comment: Interpretive Data Fasting glucose >/= 126 [...] interpretive data was last revised 2017. Calcium 8.8 8.4 - 10.5 mg/dL [facility] Bilirubin, total 0.50 0.10 - 1.30 mg/dL [facility] Protein, pl 6.7 6.0 - 8.3 g/dL [facility] Albumin 3.6 3.2 - 4.8 g/dL [facility] Alk phos 75 30 - 110 Units/L [facility] ALT 14 1 - 45 Units/L [facility] AST 20 7 - 40 Units/L [facility] Blood specimen (specimen) 10/30/2018 3:03 AM [facility] 10/30/2018 3:06 AM [facility] Narrative [facility] - 10/30/2018 3:23 AM [facility] Truong Rodriguez MD LAB BLOOD ORDERABLES Final Result Performing Organization Address [facility] Co de Phone Number SASHA JONES [id number] [place] [address] * (ABNORMAL) CBC with auto differential (10/30/2018 3:03 AM [facility]) Pathologist [facility] [place] WBC 10.0(H) 3.8 - 9.9 K/cumm [facility] Hgb 11.9 11.9 - 15.5 g/dL [facility] Hct 37.2 35.6 - 45.5 % [facility] Plt 301 150 - 400 K/cumm [facility] MPV 9.3 9.1 - 12.3 fL [facility] RBC 4.10 3.90 - 5.20 M/cumm [facility] MCV 90.7 81.3 - 96.4 fL [facility] MCH 29.0 27.1 - 33.3 pg [facility] MCHC 32.0(L) 32.3 - 35.7 g/dL [facility] RDW CV 12.5 11.1 - 14.9 % [facility] RDW SD 41.3 35.7 - 48.1 fL [facility] NRBC abs 0.00 0.00 - 0.01 K/cumm [facility] Blood specimen (specimen) 10/30/2018 3:03 AM [facility] 10/30/2018 3:06 AM [facility] Narrative [facility] - 10/30/2018 3:08 AM [facility] Truong Rodriguez MD LAB BLOOD ORDERABLES Final Result Performing Organization Address [facility]/ZIP Co de Phone Number SASHA JONES [address] Department [place] [address] * ECG 12 lead (10/30/2018 2:47 AM [facility]) Pathologist [facility] [place] Patient age 28 years [facility] Interpretation Text SINUS RHYTHMNONSPECIFIC T-WAVE ABNORMALITYBORDERLINE ECGNO PREVIOUS TRACING [facility] Comment:Physician Interprete r Dr. Rodger Camara M.D. Ventricular Rate EKG/Min 72 /min [facility] P Wave Duration 132 ms [facility] QRS-Interval (MSEC) 89 ms [facility] IA-Interval (MSEC) 160 ms [facility] QT Interval 330 ms [facility] QTc 351 ms [facility] QTC Interval ms [facility] P Dixon 51 deg [facility] QRS Dixon 9 deg [facility] T Dixon -4 deg [facility] 10/30/2018 2:47 AM [facility] us Truong Rodriguez MD ECG ORDERABLES Final Resul t [facility] documented in this encounter Visit Diagnoses Diagnosis Chest pain, unspecified type- Primary Urinary tract infection without hematuria, site unspecified Neuropathy (CMS/HCC) Mononeuritis of unspecified site Altered mental status documented in this encounter Administered Medications Inactive Administered Medications - up to 3 most recent administrations Medication Order MAR Action Action Date Dose Rate Site acetaminophen (TYLENOL) tablet 650 mg 650 mg, oral, Every 6 hours PRN, headaches, fever, Starting on Tue10/30/18 at 0942 amLODIPine (NORVASC) tablet 10 mg 10 mg, oral, Daily, First dose on Tue10/30/18 at 1015, Indications: hypertensionIndications:hypertensio n Given 11/01/2018 8:23 AM [facility] 10 mg Given 10/31/2018 9:13 AM [facility] 10 mg Given 10/30/2018 9:59 AM [facility] 10 mg aspirin chewable tablet 324 mg 324 mg, oral, Once, On Tue10/30/18 at 0730, For 1 dose, Indications: Acute Coronary SyndromeIndications:Acute Coronary Syndrome Given 10/30/2018 8:[address] 324 mg aspirin enteric coated tablet 81 mg 81 mg, oral, Daily, First dose on Tue10/30/18 at 1015, Do not crush, chew, cut, dissolve, open or otherwise manipulate tablet/capsule. Given 11/01/2018 8:23 AM [facility] 81 mg Given 10/31/2018 9:13 AM [facility] 81 mg Given 10/30/2018 9:59 AM [facility] 81 mg ciprofloxacin (CIPRO) tablet 500 mg 500 mg, oral, Once, On Tue10/30/18 at 0602, For 1 dose, Administer ciprofloxacin at least 2 hours before or 6 hours after antacids (containing aluminum or magnesium), calcium or calcium containing foods such as milk or yogurt, MVI (containing iron or zinc), iron, zinc, sucralfate or buffered meds such as didanosine., Indications: Urinary Tract/Genitourinary InfectionIndications:Urinary Tract/Genitourinary Infection Given 10/30/2018 8:43 AM [facility] 500 mg ciprofloxacin (CIPRO) tablet 500 mg 500 mg, oral, 2 times daily, First dose on Tue10/30/18 at 1015, For 4 days, Indications: Urinary Tract/Genitourinary InfectionIndications:Urinary Tract/Genitourinary Infection Given 10/31/2018 9:14 AM [facility] 500 mg Given 10/30/2018 8:51 PM [facility] 500 mg Given 10/30/2018 9:58 AM [facility] 500 mg enoxaparin (LOVENOX) syringe 40 mg 40 mg, subcutaneous, Daily (for enoxaparin), First dose on Tue10/30/18 at 2100, Indications: VTE ProphylaxisIndications:VTE Prophylaxis Given 10/31/2018 8:31 PM [facility] 40 mg Left Upper Abdomen Given 10/30/2018 8:56 PM [facility] 40 mg Le ft Upper Abdomen hydroCHLOROthiazide (HYDRODIURIL) tablet 12.5 mg 12.5 mg, oral, Daily, First dose on Tue10/31/18 at 0900 Given 11/01/2018 8:24 AM [facility] 12.5 mg Given 10/31/2018 9:13 AM [facility] 12.5 mg HYDROmorphone (DILAUDID) injection 1 mg 1 mg, intravenous, Administer over 2 Minutes, Once, On Tue10/30/18 at 0351, For 1 dose Given 10/30/2018 3:56 AM [facility] 1 m g HYDROmorphone (DILAUDID) injection 1 mg 1 mg, intravenous, Administer over 2 Minutes, Every 3 hours PRN, 1st line for pain, Starting on Tue10/30/18 at 1657 Given 10/31/2018 10:17 AM [facility] 1 mg Given 10/31/2018 6:00 AM [facility] 1 mg Given 10/31/2018 1:58 AM [facility] 1 mg ketorolac (TORADOL) injection 15 mg 15 mg, intravenous, Once, On Tue10/31/18 at 2045, For 1 dose, For Adult IV push, administer over 15 seconds Given 10/31/2018 8:30 PM [facility] 15 mg LORazepam (ATIVAN) injection 1 mg 1 mg, intravenous, Once, On Tue10/30/18 at 0351, For 1 dose, For IV administration, do not exceed a rate of 2 mg/minute Given 10/30/2018 3:56 AM [facility] 1 mg LORazepam (ATIVAN) tablet 0.5 mg 0.5 mg, oral, Once, On Tue10/30/18 at 1430, For 1 dose Given 10/30/2018 2:02 PM [facility] 0.5 mg losartan (COZAAR) tablet 25 mg 25 mg, oral, Daily, First dose on Tue10/31/18 at 0900 Given 11/01/2018 8:23 AM [facility] 25 mg Given 10/31/2018 9:12 AM [facility] 25 mg morphine injection 1 mg 1 mg, intravenous, Administer over 4 Minutes, Every 3 hours PRN, 1st line for pain, Starting on Tue10/30/18 at 0941 Given 10/30/2018 2:02 PM [facility] 1 mg Given 10/30/2018 9:58 AM [facility] 1 mg ondansetron (ZOFRAN) injection 4 mg 4 mg, intravenous, Administer over 2 Minutes, Every 6 hours PRN, nausea, vomiting, Starting on Tue10/30/18 at 0934 potassium chloride ER (KLOR-CON,K-DUR) extended release tablet 40 mEq 40 mEq, oral, Once, On Tue10/30/18 at 0900, For 1 dose, Do not crush, chew, cut, dissolve, open or otherwise manipulate tablet/capsule. Given 10/30/2018 8:43 AM [facility] 40 mEq potassium chloride ER (KLOR-CON,K-DUR) extended release tablet 40 mEq 40 mEq, oral, Once, On Tue10/30/18 at 1015, For 1 dose, Do not crush, chew, cut, dissolve, open or otherwise manipulate tablet/capsule. Given 10/30/2018 9:59 AM [facility] 40 mEq pregabalin (LYRICA) capsule 50 mg 50 mg, oral, 3 times daily, First dose on Tue10/30/18 at 1015 Given 11/01/2018 8:24 AM [facility] 50 mg Given 10/31/2018 8:30 PM [facility] 50 mg Given 10/31/2018 5:01 PM [facility] 50 mg topiramate (TOPAMAX) tablet 50 mg 50 mg, oral, 2 times daily, First dose on Tue10/30/18 at 1100, Indications: headacheIndications:headache Given 11/01/2018 8:23 AM [facility] 50 mg Given 10/31/2018 8:31 PM [facility] 50 mg Given 10/31/2018 9:14 AM [facility] 50 mg traMADol (ULTRAM) tablet 50 mg 50 mg, oral, 4 times daily PRN, 2nd line for pain, Starting on Tue10/30/18 at 0915 Given 11/01/2018 11:25 AM [facility] 50 mg Given by Other 11/01/2018 7:24 AM [facility] 50 mg Given 11/01/2018 12:57 AM [facility] 50 mg traMADol (ULTRAM) tablet 50 mg 50 mg, oral, Once, On Tue10/31/18 at 2045, For 1 dose Given 10/31/2018 8:31 PM [facility] 50 mg documented in this encounter Discontinued Medications Medication Sig Discontinue Reason Start Date End Da te pregabalin (LYRICA) 50 mg capsule Take 1 capsule (50 mg total) by mouth 3 (three) times a day. 08/09/2018 11/01/2018 pregabalin (LYRICA) 50 mg capsule Take 2 capsules (100 mg total) by mouth 3 (three) times a day. Stop Taking at Discharge 11/01/2018 11/01/2018 documented as of this encounter Historical Medications * This list may reflect changes made after this encounter. aspirin 81 mg tablet Take 81 mg by mouth daily. added in this encounter Active and Recently Administered Medications Times are shown in [facility]. Scheduled Medication Order 10/30/2018 10/31/2018 11/01/2018 amLODIPine (NORVASC) tablet 10 mg 10 mg, oral, Daily, First dose on Tue10/30/18 at 1015, Indications: hypertension 0959 (Given - Provider: Fariba Santana, PITA) 0913 (Given - Provider: Shavon Nielsen RN) 0823 (Given - Provider: Amanda Song, PITA) aspirin chewable tablet 324 mg (COMPLETED) 324 mg, oral, Once, On Tue10/30/18 at 0730, For 1 dose, Indications: Acute Coronary Syndrome 0843 (Given - Provider: Karley Loyola RN) aspirin enteric coated tablet 81 mg 81 mg, oral, Daily, First dose on Tue10/30/18 at 1015, Do not crush, chew, cut, dissolve, open or otherwise manipulate tablet/capsule. 0959 (Given - Provider: Fariba Santana RN) 0913 (Given - Provider: Shavon Nielsen RN) 0823 (Given - Provider: Amanda Song, PITA) ciprofloxacin (CIPRO) tablet 500 mg (COMPLETED) 500 mg, oral, Once, On Tue10/30/18 at 0602, For 1 dose, Administer ciprofloxacin at least 2 hours before or 6 hours after antacids (containing aluminum or magnesium), calcium or calcium containing foods such as milk or yogurt, MVI (containing iron or zinc), iron, zinc, sucralfate or buffered meds such as didanosine., Indications: Urinary Tract/Genitourinary Infection 0843 (Given - Provider: Karley Loyola RN) ciprofloxacin (CIPRO) tablet 500 mg (CANCELED) 500 mg, oral, 2 times daily, First dose on Tue10/30/18 at 1015, For 4 days, Indications: Urinary Tract/Genitourinary Infection 58 (Given - Provider: Fariba Santana RN)2050 (Given - Provider: Connie Ruiz RN) 913 (Given - Provider: Shavon Nielsen RN) enoxaparin (LOVENOX) syringe 40 mg 40 mg, subcutaneous, Daily (for enoxaparin), First dose on Tue10/30/18 at 2100, Indications: VTE Prophylaxis 2055 (Given - Provider: Connie Ruiz RN) 2030 (Given - Provider: Stephanie Stevens RN) hydroCHLOROthiazide (HYDRODIURIL) tablet 12.5 mg 12.5 mg, oral, Daily, First dose on Tue10/31/18 at 0900 0913 (Given - Provider: Shavon Nielsen RN) 0824 (Given - Provider: Amanda Song, PITA) HYDROmorphone (DILAUDID) injection 1 mg (COMPLETED) 1 mg, intravenous, Administer over 2 Minutes, Once, On Tue10/30/18 at 0351, For 1 dose 0356 (Given - Provider: Shannan Dunn RN) ketorolac (TORADOL) injection 15 mg (COMPLETED) 15 mg, intravenous, Once, On Tue10/31/18 at 2045, For 1 dose, For Adult IV push, administer over 15 seconds 2030 (Given - Provider: Stephanie Stevens RN) LORazepam (ATIVAN) injection 1 mg (COMPLETED) 1 mg, intravenous, Once, On Tue10/30/18 at 0351, For 1 dose, For IV administration, do not exceed a rate of 2 mg/minute 0356 (Given - Provider: Shannan Dunn RN) LORazepam (ATIVAN) tablet 0.5 mg (COMPLETED) 0.5 mg, oral, Once, On Tue10/30/18 at 1430, For 1 dose 1402 (Given - Provider: Fariba Santana RN) losartan (COZAAR) tablet 25 mg 25 mg, oral, Daily, First dose on Tue10/31/18 at 0900 0912 (Given - Provider: Shavon Nielsen RN) 0823 (Given - Provider: Amanda Song RN) potassium chloride ER (KLOR-CON,K-DUR) extended release tablet 40 mEq (COMPLETED) 40 mEq, oral, Once, On Tue10/30/18 at 0900, For 1 dose, Do not crush, chew, cut, dissolve, open or otherwise manipulate tablet/capsule. 0843 (Given - Provider: Karley Loyola RN) potassium chloride ER (KLOR-CON,K-DUR) extended release tablet 40 mEq (COMPLETED) 40 mEq, oral, Once, On Tue10/30/18 at 1015, For 1 dose, Do not crush, chew, cut, dissolve, open or otherwise manipulate tablet/capsule. 0959 (Given - Provider: Fariba Santana RN) pregabalin (LYRICA) capsule 50 mg 50 mg, oral, 3 times daily, First dose on Tue10/30/18 at 1015 0958 (Given - Provider: Fariba Santana RN)1405 (Canceled Entry - Provider: Fariba Santana RN - Reason: Other)1621 (Given - Provider: Fariba Santana RN)2052 (Given - Provider: Connie Ruiz RN) 0912 (Given - Provider: Shavon Nielsen RN)1701 (Given - Provider: Shavon Nielsen RN)2030 (Given - Provider: Stephanie Stevens RN) 0824 (Given - Provider: Amanda Song RN) topiramate (TOPAMAX) tablet 50 mg 50 mg, oral, 2 times daily, First dose on Tue10/30/18 at 1100, Indications: headache 1224 (Given - Provider: Fariba Santana RN)205 (Given - Provider: Connie Ruiz RN) 0914 (Given - Provider: Shavon Nielsen RN)2030 (Given - Provider: Stephanie Stevens RN) 0823 (Given - Provider: Amanda Song RN) traMADol (ULTRAM) tablet 50 mg (COMPLETED) 50 mg, oral, Once, On Tue10/31/18 at 2045, For 1 dose 2030 (Given - Provider: Stephanie Stevens RN) PRN Medication Order 10/30/2018 10/31/2018 11/01/2018 acetaminophen (TYLENOL) tablet 650 mg 650 mg, oral, Every 6 hours PRN, headaches, fever, Starting on Tue10/30/18 at 0942 HYDROmorphone (DILAUDID) injection 1 mg (CANCELED) 1 mg, intravenous, Administer over 2 Minutes, Every 3 hours PRN, 1st line for pain, Starting on Tue10/30/18 at 1657 1715 (Given - Provider: Fariba Santana RN)2103 (Given - Provider: Connie Ruiz RN) 0158 (Given - Provider: Connie Ruiz RN)0600 (Given - Provider: Connie Ruiz RN)1017 (Given - Provider: Shavon Nielsen RN) morphine injection 1 mg (CANCELED) 1 mg, intravenous, Administer over 4 Minutes, Every 3 hours PRN, 1st line for pain, Starting on Tue10/30/18 at 0941 0958 (Given - Provider: Fariba Santana RN)1402 (Given - Provider: Fariba Santana RN) nitroglycerin (NITROSTAT) sublingual tablet 0.4 mg 0.4 mg, sublingual, Every 5 min PRN, chest pain, Starting on Tue10/30/18 at 0646, For 3 doses, Notify MD and obtain EKG if no relief after 3 doses or angina recurs. HOLD and notify MD if SBP less than 90 mmHg., Indications: Angina ondansetron (ZOFRAN) injection 4 mg 4 mg, intravenous, Administer over 2 Minutes, Every 6 hours PRN, nausea, vomiting, Starting on Tue10/30/18 at 0934 SUMAtriptan (IMITREX) tablet 100 mg 100 mg, oral, Once as needed, migraine, headache, Starting on Tue10/30/18 at 0931, May repeat dose once in 2 hours if unresolved. Do not exceed 200 mg in 24 hours., Indications: Migraine traMADol (ULTRAM) tablet 50 mg 50 mg, oral, 4 times daily PRN, 2nd line for pain, Starting on Tue10/30/18 at 0915 1621 (Given - Provider: Fariba Santana RN) 1414 (Given - Provider: Shavon Nielsen RN) 0057 (Given - Provider: Stephanie Stevens RN)0724 (Given by Other - Provider: Amanda Song RN)1125 (Given - Provider: Amanda Song RN) documented in this encounter Orders Medications Ordered That Mehdi ht Not Have Been Administered Count Last Ordered Date First Ordered Date polyvinyl alcohol (LIQUIFILM TEARS) 1.4 % ophthalmic solution 1 drop 1 10/31/2018 valACYclovir (VALTREX) tablet 1,000 mg 1 white petrolatum-mineral oil (REFRESH PM, PURALUBE) eye ointment 1 10/31/2018 acetaminophen (TYLENOL) tablet 650 mg 2 01/2018 morphine injection 4 mg 1 10/30/2018 nitroglycerin (NITROSTAT) sanchez blingual tablet 0.4 mg 1 10/30/2018 ondansetron (ZOFRAN) injection 4 mg 1 10/30 potassium chloride 40 mEq in sodium chloride 0.9% 500 mL IVPB 1 10/30/2018 sodium chloride 0.9% infusion 1 10/30/2018 SUMAtriptan (IMITREX) tablet 100 mg 1 10/30 Nursing Count Last Ordered Date First Orde red Date DISCHARGE ACTIVITY 1 11/01/2018 FOLLOW UP PRIMARY PHYSICIAN 1 11/01/2018 FOLLOW UP WITH PROVIDER 1 11/01/2018 CARDIAC OUTPUT MONITORING 1 10/30/2018 VITAL SIGNS 2 10/30/2018 Consult Count Last Ordered Date First Orde red Date IP CONSULT TO NEUROLOGY 1 10/30/2018 IP CONSULT TO NUTRITION SERVICES 1 10/30/20 18 IV Count Last Ordered Date First Orde red Date SALINE LOCK IV 1 10/30/2018 Admission Count Last Ordered Date First Orde red Date ASSIGN PATIENT STATUS 2 10/31/20182017 Transfer Count Last Ordered Date First Orde red Date TRANSFER PATIENT 1 10/30/2018 CORE MEASURES Count Last Ordered Date First Ord ered Date REASON FOR NO VTE PROPHYLAXIS AT ADMISSION 1 10/30/2018 REASON FOR NOT ADMINISTERING ANTITHROMBOTIC THERAPY BY EOD 2 1 10/30/2018 REASON FOR NOT INITIATING IV THROMBOLYTIC 1 10/30/2018 ADT Patient Update Count Last Ordered Date Firs t Ordered Date ED IP DECISION TO ADMIT 1 10/30/2018 documented in this encounter Additional Health Concerns Infection Onset Date Last Indicated Resolved Time MRSA Comment:Backloaded September 16, 2011 05/28/2011 05/28/201106/28 5:00 AM CDT documented as of this encounter 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
--- OUTSIDE RECORDS SUMMARY | 2024-11-30 00:27 | XMS_ITS | Encounter Summary ---
Author Organization [facility] Healthcare Address [address] [place] [address] Care Team Providers Care Birth Certificate Clerk Name Role Phone See Gonsalez MD Primary Care Provider + Zachary Driver MD Unavailable [phone] Jasbir Nielson MD Unavailable [phone] Reason for Visit * Reason Comments Chest Pain Shortness of Breath Encounter Details Date Type Department Care Team (Latest Contact Info) Description 11/03/2018 9:10 PM MUSSEL FARMER - 11/06/2018 3:53 PM MUSSEL FARMER Hospital Encounter [facility] [address] [place] [address] Silvino Camacho MD [address] [facility] [place] [address] Grace Choudhury MD [address] [place] [address] Cristel Menchaca MD [address] [place] [address] [place] [address] Acute chest pain (Primary Dx); Neuropathy (CMS/HCC); Hypokalemia Discharge Disposition: Discharge to home or self care Social History Tobacco Use Types Packs/Day Years Used Date Smoking Tobacco: Never Smokeless Tobacco: Never Alcohol Use Standard Drinks/Week Comments Yes 0 (1 standard drink = 0.6 oz pur e alcohol) rare Comments No Sex and Gender Information Value Date Recorded Sex Assigned at Not on file Legal Sex Female 1:47 AM MUSSEL FARMER Gender Identity Not on file Sexual Orientation Not on file documented as of this encounter Last Filed Vital Signs Vital Sign Reading Time Taken Comments Blood Pressure 107/70 11/06/2018 11:43 AM MUSSEL FARMER Pulse 71 11/06/2018 2:00 PM MUSSEL FARMER Temperature 36.5 ??C (97.7 ??F) 11/06/2018 11:[address] Respiratory Rate 18 11/06/2018 11:43 AM MUSSEL FARMER Oxygen Saturation 100% 11/06/2018 11:43 AM MUSSEL FARMER Inhaled Oxygen Concentration - - Weight 79.1 kg (174 lb 6.1 oz) 11/04/2018 3:05 A M MUSSEL FARMER Height 170.2 cm (5' 7 ) 11/04/2018 3:05 AM MUSSEL FARMER Body Mass Index 27.31 11/04/2018 3:05 AM MUSSEL FARMER documented in this encounter Discharge Summaries * Cristel Menchaca MD - 11/06/2018 2:41 PM CST Inpatient Discharge Summary BRIEF OVERVIEW Admitting Provider: Grace Choudhury MD Discharge Provider: Cristel Menchaca MD Primary Care Physician at Discharge: See Gonsalez MD [phone] Admission Date: 11/03/2018 Discharge Date: 11/06/2018 Date of Service: November 06, 2018 Primary Discharge Diagnosis: Unstable angina (CMS/HCC) Secondary Discharge Diagnosis: Principal Problem: Unstable angina (CMS/HCC) Active Problems: Secondary hypertension Idiopathic peripheral neuropathy History of migraine headaches DETAILS OF HOSPITAL STAY Presenting Problem/History of Present Illness: Unstable angina (CMS/HCC) Hospital Course: 1. Unstable angina, she continues to have chest pressure intermittently. Will have stress test and possibly cardiac catheterization on Tuesday. 2. History of hypertension, in the hospital she has low blood pressure after admission. Holding herblood pressure medications. 3. Peripheral neuropathy, she has Lyrica, tramadol, still having significant pain in the bilateral lower extremities, she is allergic to gabapentin and does not want to start a it. And requesting more medications. Will try morphine p.o. Q for p.r.n. On the top of tramadol and the Lyrica. 4. History of migraines, will keep her p.r.n. Medication on board. ??Will discontinue sumatriptan since this is a vasoconstrictor, continue Topamax. 5. Anxiety the, started her on low-dose Xanax. ?? Active Issues Requiring Follow-up: Test Results Pending at Discharge: Operative Procedures Performed: Other Procedures: Pertinent Test Results: CT had without contrast IMPRESSION: NORMAL CT HEAD WITHOUT CONTRAST. Chest x-ray ?? IMPRESSION: NO ACTIVE CARDIOPULMONARY DISEASE. On November 06, 2018 Conclusions: Adequate stress test in regards to heart rate. No definite ischemia on stress EKG. Exercise induced chest pain. No Echocardiographic evidence of ischemia. Discharge Details Physical Exam at Discharge: Discharge Condition: improved and stable. Pulse: 81 Resp: 18 BP: 107/70 Temp: 36.5 ??C (97.7 ??F) Pertinent Exam Findings at Discharge: Patient is chest pain-free, complaining of lower extremity neuropathic pains which is chronic. Chest S1-S2, regular, the no murmurs gallops lungs clear to auscultation bilaterally. Abdomen is soft, nontender, bowel sounds are present, no organomegaly. Extremities no edema or tenderness on palpation, pedal artery pulses present bilaterally. Neuro examination nonfocal. General Assistant once a loop monitor the, results will go to Dr. Nielson, patient will follow with Dr. Nielson in office. This was discussed with the patient she agreed with the plan. She did not have any questions. Medication side effects, interactions and indication discussed with the patient. She verbalized understanding. Recommending avoid sumatriptan, discontinue hydrochlorothiazide, discontinue losartan. Patient's blood pressure was very soft and a always on the low side. Instead Dr. Nielson wantedher to be on beta-blockers, prescription provided. Discharge Disposition: Discharge to home or self care Code Status at Discharge: Full Code Discharge Instructions: Activity Instructions Discharge activity: Resume normal activity Diet Instructions Adult Discharge Diet Diet Type: Return to previous diet Other Instructions Call provider for: Temperature -Temperature greater than 101 degrees F Call provider for: difficulty breathing or chest pain Call provider for: hives Call provider for: persistent nausea or vomiting Call provider for: severe uncontrolled pain Call provider for: headache, visual disturbances, weakness and speech changes Event Monitor - Loop 30 Day Please select the performing department: [facility] Is the patient ?: Unknown Discharge Medications: Your medication list CONTINUE taking these medications amLODIPine 10 mg tablet Commonly known as: NORVASC Take 1 tablet (10 mg total) by mouth daily. aspirin 81 mg tablet pregabalin 50 mg capsule Commonly known as: LYRICA Take 1 capsule (50 mg total) by mouth 3 (three) times a day. topiramate 25 mg tablet Commonly known as: TOPAMAX Take 2 tablets (50 mg total) by mouth 2 (two) times a day. traMADol 50 mg tablet Commonly known as: ULTRAM Take 1 tablet (50 mg total) by mouth every 6 (six) hours as needed for pain. STOP taking these medications hydroCHLOROthiazide 12.5 mg tablet Commonly known as: HYDRODIURIL losartan 25 mg tablet Commonly known as: COZAAR SUMAtriptan 100 mg tablet Commonly known as: IMITREX Outpatient Follow-Up: No future appointments. spent 35 min EL FARMER documented in this encounter Discharge Instructions * Discharge Instr - Other Orders* Muriel Caballero RN - 11/06/2018 2:47 PM MUSSEL FARMER Call our Centralized Scheduling Department at [phone] to set up a date/time to come and have your monitor placed EL FARMER documented in this encounter Medications at Time [...] documented in this encounter Progress Notes * Cristel Menchaca MD - 11/05/2018 12:29 PM CST General Medicine Daily Progress SUBJECTIVE Chief complaint of severe lower extremity neuropathy pain Interval History: Requesting more medication for pain control of lower extremity neuropathy pain OBJECTIVE Vitals: 24hr Min/Max: Temp Min: 36.4 ??C (97.6 ??F) Max: 37.2 ??C (98.9 ??F) Pulse Min: 73 Max: 96 BP Min: 100/70 Max: 128/97 Resp Min: 18 Max: 20 SpO2 Min: 99 % Max: 100 % Most Recent : Vitals: 11/05/18 1109 BP: 109/70 Pulse: 85 Resp: 18 Temp: 37.2 ??C (98.9 ??F) SpO2: 100% I/O last 2 completed shifts: In: 1070 [P.O.:1070] Out: - I/O this shift: In: 600 [P.O.:600] Out: - Physical Exam: Eyes: EOMI, DWAYNE, sclare non icteric Neck: supple, no nuchal ridigity, no gross carotid bruits appreciated Pharynx: No gross oral lesion, tongue midline, mucosa moist Lungs CTA Heart: [id number] no significant murmur or gallop Abd: +BS, Non Tender, Non distended, No gross hepatomegaly Lower Ext: Trace edema bilaterally Neuro: No new gross deficits appreciated Musculoskeletal: no gross joint erythema, edema, tenderness Skin: No new change Lab/Current Medication Review: Recent Results (from the past 24 hour(s)) CBC without differential Collection Time: 11/05/18 5:51 AM Result Value Ref Range WBC 7.2 3.8 - 9.9 K/cumm Hgb 11.2 (L) 11.9 - 15.5 g/dL Hct 33.4 (L) 35.6 - 45.5 % Plt 280 150 - 400 K/cumm MPV 9.2 9.1 - 12.3 fL RBC 3.80 (L) 3.90 - 5.20 M/cumm MCV 87.9 81.3 - 96.4 fL MCH 29.5 27.1 - 33.3 pg MCHC 33.5 32.3 - 35.7 g/dL RDW CV 12.4 11.1 - 14.9 % RDW SD 39.9 35.7 - 48.1 fL NRBC Abs 0.00 0.00 - 0.01 K/cumm Basic metabolic panel Collection Time: 11/05/18 5:51 AM Result Value Ref Range Sodium 141 135 - 145 mmol/L Potassium, pl 3.3 3.3 - 4.9 mmol/L Chloride 109 97 - 110 mmol/L CO2 23 22 - 32 mmol/L Anion Gap 9 2 - 15 mmol/L BUN 15 8 - 25 mg/dL Creatinine 0.85 0.60 - 1.10 mg/dL Glucose 103 70 - 199 mg/dL Calcium 8.9 8.5 - 10.3 mg/dL eGFR Collection Time: 11/05/18 5:51 AM Result Value Ref Range GFR >60 mL/min/1.73 m2 Current Facility-Administered Medications Medication Dose Route Frequency Provider Last Rate Last Dose ??? ALPRAZolam (XANAX) tablet 0.5 mg 0.5 mg oral Q6H PRN Cristel Menchaca MD ??? aspirin enteric coated tablet 81 mg 81 mg oral Daily Cristel Menchaca MD 81 mg at 11/05/18810 ??? morphine 2 mg/mL oral solution 15 mg 15 mg feeding tube Q4H PRN Cristel Menchaca MD ??? pantoprazole DR (PROTONIX) extended release tablet 40 mg 40 mg oral Daily Cristel Menchaca MD 40 mg at 11/05/18810 ??? pregabalin (LYRICA) capsule 50 mg 50 mg oral TID Cristel Menchaca MD 50 mg at 11/05/18810 ??? topiramate (TOPAMAX) tablet 50 mg 50 mg oral BID Cristel Menchaca MD 50 mg at 11/05/18810 ??? traMADol (ULTRAM) tablet 50 mg 50 mg oral Q6H PRN Cristel Menchaca MD 50 mg at 11/05/18912 Assessment/ plan 1. Unstable angina, she continues to have chest pressure intermittently. Will have stress test and possibly cardiac catheterization on Tuesday. 2. History of hypertension, in the hospital she has low blood pressure after admission. Holding herblood pressure medications. 3. Peripheral neuropathy, she has Lyrica, tramadol, still having significant pain in the bilateral lower extremities, she is allergic to gabapentin and does not want to start a it. And requesting more medications. Will try morphine p.o. Q for p.r.n. On the top of tramadol and the Lyrica. 4. History of migraines, will keep her p.r.n. Medication on board. Will discontinue sumatriptan since this is a vasoconstrictor, continue Topamax. 5. Anxiety the, started her on low-dose Xanax. Principal Problem: Unstable angina (CMS/HCC) Active Problems: Secondary hypertension Idiopathic peripheral neuropathy History of migraine headaches Cristel Menchaca MD 11/05/2018 12:29 PM EL FARMER * Jasbir Nielson MD - 11/05/2018 12:00 AM CST Date of progress note 05 November 2018 Patient was found lying in bed on room air. She looked quite comfortable. She had an episode of nonexertional chest pain and numbness again last night. This time around, she would like to have a stress echo on Tuesday instead of a heart catheterization. We talked about various approaches including the benefit of a heart catheterization versus a stress test. She definitely does not want a heart catheterization this time. Will see what she can do on the stress echo tomorrow. Hopefully, she will pass it so she can go home tomorrow in the afternoon. Job ID/VF Job ID: [id number] EL FARMER documented in this encounter H&P Notes * Cristel Menchaca MD - 11/04/2018 8:54 AM CST History and Physical Date of service November 04, 2018 Primary care physician : See Gonsalez SUBJECTIVE HPI: This is a pleasant 28-year-old female, with past medical history of hypertension, peripheral neuropathy migraine headaches, anxiety presented to hospital emergency room with chest pain going on for about an hour before presentation. The chest pain started while at rest, intensity of moderate, achy, localized in left chest area, then she developed left arm numbness tingling pain the. After she came to hospital emergency room painwas resolved. Associated symptom during the pain at home was shortness of breath, palpitation tachycardia and nausea. Patient did not vomit. She 2 could baby aspirins at home, in the hospital ED she was pain free. Today she is having chest pressure localized in mid chest area intensity moderate, noassociated symptoms. Risk factors hypertension. The no family history of heart attacks, family history diabetes present,but patient did does not have diabetes she had gestational diabetes. Does not take any medicines now. She is not a smoker, her cholesterol panel was done on October 31, 2018 showing LDL of 78, triglyceride normal total cholesterol normal level. Patient has been in the other to hospitals at the beginning of October. The pressure was added andhospital was discharged from there with the same and symptoms. And then on October a patient went to [facility] [place] with similar symptoms and also numbness of the face. She had extensive evaluation for possible stroke. She had echocardiogram, CT of the head, MRI and MRA of the head, chest x-ray, lipid panel and a found no issues, she was evaluated for acute AR had a EKGs and troponins done did not show any changes except for when I am reviewing her prior EKG is shows some ST depressions in lateral leads which is more prominent now for this hospitalization. The Cardiology consultation obtained Echocardiogram will be repeated if needed. Three troponins will be collected. Two troponins negative for now. EKG done on admission shows ST depression. Will repeat EKG now for comparison patient is still having chest pressure. Will continue aspirin, others pain control measures, currently her chest pressure is very mild. Will give her tramadol, continue aspirin. Will also give her Protonix. Past Medical History: Diagnosis Date ??? Anxiety ??? Headache ??? HX OTHER MEDICAL Carpal tunnel syndrome ??? Hypertension ??? Migraine ??? Peripheral neuropathy Past Surgical History: Procedure Laterality Date ??? BREAST BIOPSY ??? CERVICAL BIOPSY W/ LOOP ELECTRODE EXCISION ??? OTHER SURGICAL HISTORY Carpal tunnel syndrome: Vicodin and Tramadol Prescriptions Prior to Admission Medication Sig Dispense Refill Last Dose ??? amLODIPine (NORVASC) 10 mg tablet Take 1 tablet (10 mg total) by mouth daily. 30 tablet 0 Taking ??? aspirin 81 mg tablet Take 81 mg by mouth daily. 11/04/2018 at 0800 ??? hydroCHLOROthiazide (HYDRODIURIL) 12.5 mg tablet Take 1 tablet (12.5 mg total) by mouth daily. 30 tablet 1 11/04/2018 at 0800 ??? losartan (COZAAR) 25 mg tablet Take 1 tablet (25 mg total) by mouth daily. 30 tablet 1 11/04/2018 at 0800 ??? pregabalin (LYRICA) 50 mg capsule Take 1 capsule (50 mg total) by mouth 3 (three) times a day. 90 capsule 1 11/04/2018 at 1200 ??? SUMAtriptan (IMITREX) 100 mg tablet Take 1 tablet (100 mg total) by mouth once as needed for migraine (headache) for up to 1 dose. May repeat one time after 2 hours if needed. 9 tablet 11 More than a month at Unknown time ??? topiramate (TOPAMAX) 25 mg tablet Take 2 tablets (50 mg total) by mouth 2 (two) times a day. 120 tablet 0 Taking ??? traMADol (ULTRAM) 50 mg tablet Take 1 tablet (50 mg total) by mouth every 6 (six) hours as needed for pain. 20 tablet 0 11/03/2018 at Unknown time Allergies Allergen Reactions ??? Prochlorperazine Anaphylaxis Social History Substance Use Topics ??? Smoking status: Never Smoker ??? Smokeless tobacco: Never Used ??? Alcohol use Yes Comment: rare Family History Problem Relation Age of Onset ??? Diabetes Other Family history of Diabetes mellitus; ??? Hypertension Other Family history of Hypertension; ??? Hypertension Mother ??? Mitral valve prolapse Mother Review of Systems: 1. Constitutional Denies: weight loss, weight gain, fever, chills, night sweats, fatigue 2. Eyes Denies: change in vision, double vision, eye pain, eye discharge, icterus 3. ENT Denies: change in hearing, ear pain, ear discharge, nose bleed, nasal congestion, sore throat 4. Respiratory Denies: SOB, wheezing, cough, sputum, hemoptysis 5. CV Positive for chest pressure Denies: palpitations, syncope, edema, dyspnea 6. GI Denies: abdominal pain, decreased appetite, nausea, vomiting, change in bowel habitus, diarrhea, vomiting, constipation, melena, BRBPR 7. Denies: dysuria, frequency, hematuria, nocturia, urgency 8. Metabolic Denies: cold intolerance, heat intolerance, polyphagia, polydipsia 9. Neurologic Positive for leg pain due to neuropathy Denies: headache, dizziness, seizure, change in mental status, focal weakness, focal numbness 10. Musculoskeletal Positive for neuropathic leg pain bilaterally Denies: myalgia, joint pain, joint redness, joint swelling 11. Hematologic Denies: bleeding, bruising, hematoma, lymphadenopathy, icterus OBJECTIVE Vitals: Arrival Vitals Temp 11/03/182141 37.4 ??C (99.4 ??F) Pulse 11/03/182141 (!) 130 Resp 11/03/182141 20 BP 11/03/182141 (!) 139/102 SpO2 11/03/182141 100 % Temp src 11/03/182141 Temporal Heart Rate Source 11/04/18714 Monitor Patient Position 11/04/18714 Lying BP Location 11/04/18714 Left arm FiO2 (%) -- 24hr Min/Max: Temp Min: 36.2 ??C (97.2 ??F) Max: 37.4 ??C (99.4 ??F) Pulse Min: 74 Max: 130 BP Min: 99/48 Max: 139/102 Resp Min: 14 Max: 20 SpO2 Min: 98 % Max: 100 % Most Recent : Vitals: 11/04/18714 BP: 99/48 Pulse: 86 Resp: 17 Temp: 36.9 ??C (98.4 ??F) SpO2: 100% No intake or output data in the 24 hours ending 11/04/18 0926 Physical exam: Eyes: EOMI, DWAYNE, sclare non icteric Neck: supple, no nuchal ridigity, no gross carotid bruits appreciated Pharynx: No gross oral lesion, tongue midline, mucosa moist Lungs CTA Heart: [id number] Abd: +BS, Non Tender, Non distended, No gross hepatomegaly Lower Ext: No gross edema Neuro: No new gross deficits appreciated Musculoskeletal: no gross joint erythema, edema, tenderness Genitourinary: No change Skin: No acute change Lab/Radiology/Diagnostic Review: Recent Results (from the past 24 hour(s)) CBC with auto differential Collection Time: 11/03/18 10:03 PM Result Value Ref Range WBC 9.2 3.8 - 9.9 K/cumm Hgb 13.2 11.9 - 15.5 g/dL Hct 39.7 35.6 - 45.5 % Plt 345 150 - 400 K/cumm MPV 9.3 9.1 - 12.3 fL RBC 4.55 3.90 - 5.20 M/cumm MCV 87.3 81.3 - 96.4 fL MCH 29.0 27.1 - 33.3 pg MCHC 33.2 32.3 - 35.7 g/dL RDW CV 12.3 11.1 - 14.9 % RDW SD 39.4 35.7 - 48.1 fL NRBC Abs 0.00 0.00 - 0.01 K/cumm Comprehensive metabolic panel Collection Time: 11/03/18 10:03 PM Result Value Ref Range Sodium 142 135 - 145 mmol/L Potassium, pl 3.2 (L) 3.3 - 4.9 mmol/L Chloride 103 97 - 110 mmol/L CO2 26 22 - 32 mmol/L Anion Gap 13 2 - 15 mmol/L BUN 14 8 - 25 mg/dL Creatinine 0.71 0.60 - 1.10 mg/dL Glucose 112 70 - 199 mg/dL Calcium 9.4 8.5 - 10.3 mg/dL Bilirubin, total 0.3 0.1 - 1.2 mg/dL Protein, pl 7.6 6.5 - 8.5 g/dL Albumin 4.4 3.5 - 5.0 g/dL Alk phos 85 40 - 130 Units/L ALT 12 7 - 45 Units/L AST 12 10 - 45 Units/L Troponin T Collection Time: 11/03/18 10:03 PM Result Value Ref Range Troponin T <0.01 0.00 - 0.01 ng/mL Differential, auto Collection Time: 11/03/18 10:03 PM Result Value Ref Range Neutrophil absolute 4.8 1.7 - 6.5 K/cumm Immature granulocyte absolute 0.0 0.0 - 0.1 K/cumm Lymphocytes absolute 3.3 0.8 - 3.3 K/cumm Monocyte absolute 0.7 0.2 - 0.8 K/cumm Eosinophils absolute 0.3 0.0 - 0.5 K/cumm Basophils, abs 0.0 0.0 - 0.1 K/cumm Neutrophils 53.1 % Immature granulocytes 0.3 % Lymphocytes 35.7 % Monocytes 7.5 % Eosinophils 3.1 % Basophils 0.3 % eGFR Collection Time: 11/03/18 10:03 PM Result Value Ref Range GFR >60 mL/min/1.73 m2 Troponin T Collection Time: 11/04/18 6:49 AM Result Value Ref Range Troponin T <0.01 0.00 - 0.01 ng/mL Current Facility-Administered Medications Medication Dose Route Frequency Provider Last Rate Last Dose ??? aspirin enteric coated tablet 81 mg 81 mg oral Daily Cristel Menchaca MD 81 mg at 11/04/18922 ??? pantoprazole (PROTONIX) extended release tablet 40 mg 40 mg oral Daily Cristel Menchaca MD ??? pregabalin (LYRICA) capsule 50 mg 50 mg oral TID Cristel Menchaca MD 50 mg at 11/04/18922 ??? SUMAtriptan (IMITREX) tablet 100 mg 100 mg oral Once PRN Cristel Menchaca MD ??? topiramate (TOPAMAX) tablet 50 mg 50 mg oral BID Cristel Menchaca MD 50 mg at 11/04/18922 ??? traMADol (ULTRAM) tablet 50 mg 50 mg oral Q6H PRN Cristel Menchaca MD A/P 1. Unstable angina. Will do 1 more troponin and 1 more EKG for comparison. Cardiology is consulted.So far I see negative troponins and ST depression in lateral leads which is diffuse and patient continues to have pressure in the chest. Continue aspirin, good blood pressure control. 2. Secondary hypertension suspected. Patient's blood pressure is low 99/48, will not give any bloodpressure medicines right now. But will make sure we have good blood pressure control. 3. Peripheral neuropathy will continue Lyrica 4. History of migraines, will keep her p.r.n. Medication on board. Will discontinue sumatriptan since this is a vasoconstrictor, continue Topamax Anticipated length of stay to be more than [address] Nielson saw the patient in consultation, have high suspicion of unstable angina, he agrees with EKG changes showing ST depression diffusely. Offering the stress test and cardiac catheterization. Patient decided to stay until Tuesday and have the further workup done here at [facility].For now will keep her on telemetry, watch for symptoms, continue medication, adjusting the medications and adding beta-blockers. . Unstable angina (CMS/HCC) Secondary hypertension Idiopathic peripheral neuropathy History of migraine headaches * No resolved hospital problems. * Cristel Menchaca MD Date of Service: 11/04/2018 EL FARMER EL FARMER documented in this encounter Consult Notes * Jasbir Nielson MD - 11/04/2018 12:00 AM CST Cardiac Consultation Reason for Consultation Chest pain and shortness of breath with abnormal EKG - - assess need for cardiac catheterization. 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 She apparently does not have any problem working at the residential. In other words, she does not have classic exertional chest pain or exertional shortness of breath. What she has had over the past 2 weeks were episodes of nonexertional leg numbness, followed by numbness of the upper extremities. She then would feel her heart racing up to 140 beats per minute. She does have an O2sat machine that she can take a look at the heart rate and then she would have a pressure ache in the left upper chest area associated with feeling nervous and perhaps some shortness of breath. She would feel warm all over, but she would not pass out. Again, she has had several of these episodes over the past 2 weeks. When she came in, she was noted to have diffuse ST-segment depression. This is slightly more ST depression than the EKG from [facility] a few days ago when she came in with similar symptoms. A reservation manager, Dr. Driver, actually saw the patient and recommended an outpatient stress test. Enzymes were normal there, as they were normal also at this time x2. Second EKG hereshowed less ST depression diffusely. Smoking None. Alcohol An occasional drink. Past Medical History 1. Dyslipidemia with HDL 29. 2. Hypertension diagnosed in July 2018. 3. Migraine headaches. 4. Anxiety disorder. 5. Peripheral neuropathy for which she is on Lyrica. Family History Grandfather of a heart attack in his 60s. Grandmother of a heart attack in her 60s. Mom had mitral valve prolapse. Social History The patient is . They live in [place], [place]. They have 4 kids. 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 Physical Examination Vital Signs: Blood pressure 99/48, pulse of 86 and regular in sinus rhythm. General: She is a mildly overweight female who looks quite comfortable on room air. The pin is noted on the left nostril. She has multiple tattoos on the lower extremities and also on the lower back.She denies any chest pain. No chest wall tenderness to palpation. Lungs: Good and equal airway exchange bilaterally. They are clear to auscultation bilaterally. Heart: Regular without any murmurs, gallops, or rubs. EKG Initially EKG yesterday evening showed sinus tachycardia at 116 beats per minute with diffuse ST-segment depression. Today's EKG shows sinus rhythm at 68 beats per minute with diffuse ST changes but clearly less prominent ST depression. Assessment and Plan This is a pleasant 28-year-old female with a few risk factors for coronary artery disease including: Dyslipidemia, hypertension, family history of coronary artery disease and also mild obesity. Pain is not typical for coronary artery disease. However, she had those EKG changes despite normal- looking troponins. I offered her a stress echo or cardiac catheterization here on Tuesday morning. Alternatively, she could follow up with Dr. Driver at [facility] and do those procedures on an outpatient basis. Findings and plan discussed with Dr. Menchaca over the phone. Would send the patient home with a cardiac monitoring in case she has some kind of tachydysrhythmiawhen she has these episodes. Job ID/VF Job ID: [id number] EL FARMER documented in this encounter ED Notes * Silvino Camacho MD - 11/04/2018 1:13 AM CSTAssociated Order(s): ECG 12-LEAD HPI Chief Complaint Patient presents with ??? Chest Pain ??? Shortness of Breath 11:40 PM 11/03/2018 Lorena Flores is a 28 y/o F with a history of hypertension, peripheral neuropathy, migraine, and anxiety presenting to the ED c/o sudden onset chest pain lasting for 1 hour onset this evening after watching TV and drinking hot chocolate with her daughter at approximately 9:30 PM. She rates the pain as 5- 6/10, but notes no chest pain at this time. She also reports numbness in her left upper extremity initially attributed to lying on the couch. She also reports palpitations, tachycardia, shortness of breath and nausea. She notes intermittent pain in bilateral lower extremities, worse on the right, which she attributes to peripheral neuropathy. She notes taking 3 Asprin prior to arrival at the ED. She notes being seen at [facility] for a UTI on 10/28/2018. She also reports being admitted to [facility] for similar symptoms 10/30/2018, discharged 11/01/2018. No other alleviating or exacerbating factors. She denies any fever or congestion. No dizziness. She statesthat she takes Amlodipine, Losartan, and Hydrochlorothiazide for hypertension and Lyrica for peripheral neuropathy. Per chart review: Patient was seen at [facility] ED on 10/28/2018 for a UTI. Patient was seen at [facility] ED on 10/30/2018 and was admitted for atypical chest pain. Myocardial infarction ruled out and patient was referred to the clinic for further evaluation, including possible outpatient stress test. Losartan and HCTZ added. Numbness on the right side of the face reported; stroke ruled out, possibly due to peripheral neuropathy. XR Chest 1 View 10/30/2018: No acute pulmonary change. CT Head WO Contrast 10/30/2018 Impression: No acute intracranial process. MRA Head WO Contrast 10/30/2018 Impression: Mild Asymmetry left precentral MCA ranch otherwise unremarkable. MRI Brain WO Contrast 10/30/2018 Impression: No acute intracranial pathology. Unremarkable MRI. MRA Carotids WO Contrast 10/30/2018 Impression: No cervical internal carotid stenosis per nascet criteria on either side. Unremarkable exam. Transthroacic Echo Complete W Doppler/CF 10/30/2018 Conclusions: Technically difficult study with limited views. Normal 2D/Doppler-echocardiographic study with normal left ventricular function and no significant valvular abnormalities. PCP: Dr. Gonsalez History provided by: Patient pelletizer tender used: No Patient History Patient Active Problem List Diagnosis Date Noted ??? Altered mental status ??? Hypertensive urgency 10/16/2018 Past Medical History: [...] History Social History Narrative Grandartur had an AR in his 60s Review of Systems Review of Systems Constitutional: Negative for chills. HENT: Negative for congestion, rhinorrhea and sore throat. Eyes: Negative for pain. Respiratory: Positive for shortness of breath. Negative for cough. Cardiovascular: Negative for chest pain and leg swelling. Tachycardia. Gastrointestinal: Positive for nausea. Negative for diarrhea and vomiting. Genitourinary: Negative for difficulty urinating. Musculoskeletal: Negative for myalgias. Pain in bilateral lower extremities. Skin: Negative for rash. Neurological: Positive for numbness (left upper extremity). Negative for dizziness and headaches. Psychiatric/Behavioral: Negative for behavioral problems. Physical Exam ED Triage Vitals [11/03/182] Temp Pulse Resp BP SpO2 37.4 ??C (99.4 ??F) (!) 130 20 (!) 139/102 100 % Temp src Heart Rate Source Patient Position BP Location FiO2 (%) Temporal -- -- -- -- Physical Exam Constitutional: She is oriented to person, place, and time. She appears well- developed and well-nourished. No distress. No distress. HENT: Head: Normocephalic and atraumatic. Nose: Nose normal. Mouth/Throat: Oropharynx is clear and moist. Normal ENT. Eyes: Pupils are equal, round, and reactive to light. Conjunctivae are normal. Neck: Normal range of motion. Neck supple. Cardiovascular: Normal rate, regular rhythm and normal heart sounds. No murmur heard. Regular rate and rhythm. Pulmonary/Chest: Effort normal and breath sounds normal. No respiratory distress. Normal lungs. Abdominal: Soft. There is no tenderness. Abdomen normal. Musculoskeletal: She exhibits no edema or tenderness. Extremities normal. Neurological: She is alert and oriented to person, place, and time. No sensory deficit. No sensory motor deficits. Skin: Skin is warm and dry. Psychiatric: She has a normal mood and affect. Nursing note and vitals reviewed. MDM Labs Reviewed COMPREHENSIVE METABOLIC PANEL - Abnormal Result Value Sodium 142 Potassium, pl 3.2 (*) Chloride 103 CO2 26 Anion Gap 13 BUN 14 Creatinine 0.71 Glucose 112 Calcium 9.4 Bilirubin, total 0.3 Protein, pl 7.6 Albumin 4.4 Alk phos 85 ALT 12 AST 12 Narrative: D-DIMER, QUANTITATIVE - Abnormal D-dimer <150 (*) Narrative: CBC WITH AUTO DIFFERENTIAL WBC 9.2 Hgb 13.2 Hct 39.7 Plt 345 MPV 9.3 RBC 4.55 MCV 87.3 MCH 29.0 MCHC 33.2 RDW CV 12.3 RDW SD 39.4 NRBC Abs 0.00 Narrative: TROPONIN T Troponin T <0.01 Narrative: DIFFERENTIAL AUTO Neutrophil absolute 4.8 Immature granulocyte absolute 0.0 Lymphocytes absolute 3.3 Monocyte absolute 0.7 Eosinophils absolute 0.3 Basophils, abs 0.0 Neutrophils 53.1 Immature granulocytes 0.3 Lymphocytes 35.7 Monocytes 7.5 Eosinophils 3.1 Basophils 0.3 Narrative: EGFR GFR >60 Narrative: XR Chest 1 Vw Portable ED Interpretation Neg. CT Head WO Contrast (Results Pending) BP 115/87 Pulse 79 Temp 37.4 ??C (99.4 ??F) (Temporal) Resp 14 Ht 170.2 cm (5' 7 ) Wt 79.4 kg (175 lb) SpO2 98% ? No BMI 27.41 kg/m?? ECG 12 lead Date/Time: 11/04/2018 1:33 AM Performed by: SILVINO CAMACHO Authorized by: SILVINO CAMACHO Rate: ECG rate: 116 Rhythm: Rhythm: sinus tachycardia Comments: Rate 116. Sinus tachycardia. Diffuse ST depression. [facility] Number of Diagnoses or Management Options Acute chest pain: Hypokalemia: Neuropathy (CMS/HCC): Amount and/or Complexity of Data Reviewed Clinical lab tests: ordered and reviewed Tests in the radiology section of [facility]??: ordered and reviewed Tests in the medicine section of [facility]??: ordered and reviewed Independent visualization of images, tracings, or specimens: yes Risk of Complications, Morbidity, and/or Mortality Presenting problems: high Diagnostic procedures: high Management options: high Patient Progress Patient progress: stable ED Course as of Nov 04 207 Time: 11/04 35 Comment: Case discussed with Dr. Nielson, reservation manager who agrees to consult. By: Rani Andre Time: 11/04 101 Comment: Case discussed with Dr. Sepulveda, hospitalist, who accepts patient for admission. Requests echo be performed. By: Rani Andre Time: 11/04 125 Comment: The patient has been informed that they may have pre-hypertension or Hypertension based massimo blood pressure reading in the Emergency Department. I recommend that the patient call the primarycare provider listed on their discharge instructions or a physician of their choice this week to arrange follow up for further evaluation of possible Hypertension. By: Rani Andre Time: 11/04 146 Comment: Head CT is negative. By: Silvino Camacho MD Disposition: Admit Condition: Stable Acute chest pain Neuropathy (CMS/HCC) Hypokalemia Rani Andre scribed for Silvino Camacho MD in the doctor's presence. I electronicallysigned this note at 1:35 AM on 11/04/2018. I, Silvino Camacho MD, have personally performed the services described in the documentation , reviewed the documentation, as recorded by the scribe in my presence, and it accurately and completely records my words and actions. Silvino Camacho MD 11/04/18 0207 EL FARMER * Nela Bennett RN - 11/03/2018 9:41 PM CST 28 year old female presents to the ED from home with complaints of sudden onset of chest pain and SOB. Pt states she was recently admitted to [facility] and was there for 3 days and released yesterday. Pt states when the chest pain started at home she had left arm pain with numbness and tingling. Pt also reports nausea at this time too. Nela Bennett RN 11-03-2018 EL FARMER documented in this encounter Miscellaneous Notes * Plan of Care - Genesis Herrera RN - 11/06/2018 3:53 PM CST Goals: Clinical Goals for the Shift: VSS, labs within normal, no chest pain or discomfort Summary: Patient discharged to home at this time in stable condition. Patient A&O x4 and deniesany acute pain. Patient took all personal belongings with her including cell phone and director of group counseling program. Patient voiced understanding of discharge instructions. EL FARMER * Plan of Care - Mary Marie RN - 11/06/2018 6:06 AM CST Goals: Clinical Goals for the Shift: VSS, labs within normal, no chest pain or discomfort Summary: VSS, remains NPO for AM stress test. Labs within normal, no chest pain or discomfort voiced EL FARMER * Plan of Care - Mary Marie RN - 11/06/2018 6:01 AM CST Goals: Clinical Goals for the Shift: Patient to have decrease in anxiety and chest discomffort Summary: Had good night, rested for long intervals when left undisturbed. Medicated for C/O leg pain but denied any chest pain EL FARMER * Plan of Care - Hoda Calixto RN - 11/05/2018 4:29 PM CST Goals: Clinical Goals for the Shift: Patient to have decrease in anxiety and chest discomffort Summary: Patient resting per bed. Patient c/o pain to BLE, states its neuropathy pain. No relief noted from Tramadol and Xanax. New orders today for Morphine 15mg po, relief noted. No c/o chest pain noted this shift. Patient to have stress test in am. Activity: ??? Risk for activity intolerance will decrease Progressing Cardiac: ??? Ability to maintain an adequate cardiac output will improve Progressing ??? Hemodynamic stability will improve Progressing Cognitive: ??? Mental status will improve Progressing Fluid Volume: ??? Will maintain adequate fluid volume Progressing Health Behavior: ??? Understanding of discharge needs will improve Progressing Lack of Knowledge: ??? Verbalization of understanding the information provided will improve Progressing ??? Knowledge of the prescribed therapeutic regimen will improve Progressing Urinary Elimination: ??? Ability to achieve and maintain adequate urine output will improve Progressing EL FARMER * Plan of Care - Samantha Davidson RN - 11/05/2018 5:12 AM CST Goals: Clinical Goals for the Shift: Remain hemodynamicallyn stable EL FARMER * Plan of Care - Genesis Herrera RN - 11/04/2018 3:26 PM CST Goals: Clinical Goals for the Shift: Patient to have controlled pain and lowered anxiety. Summary: Patient up ad cari in room without incident. Patient remains A&O x4 and has denied chest pain, but voiced c/o chest pressure. Patient continues to be anxious and prn medication administered x1 thus far this shift. Dr. Nielson in to see patient and discussed different treatment options andstates that he will discuss options with Dr. Menchaca. EL FARMER documented in this encounter Plan of Treatment Not on file documented as of this encounter Procedures Procedure Name Priority Date/Time Associated Diagnosis Comments STRESS ECHO EXERCISE WO DOPPLER/CF WO CONTRAST Routine 11/06/2018 11:18 AM MUSSEL FARMER EGFR Routine 11/06/2018 10:38 AM MUSSEL FARMER CBC WITHOUT DIFFERENTIAL Routine 11/06/2018 10:38 AM MUSSEL FARMER BASIC METABOLIC PANEL Routine 11/06/2018 10:38 AM MUSSEL FARMER EGFR Routine 11/05/2018 5:51 AM MUSSEL FARMER CBC WITHOUT DIFFERENTIAL Routine 11/05/2018 5:51 AM MUSSEL FARMER BASIC METABOLIC PANEL Routine 11/05/2018 5:51 AM MUSSEL FARMER TROPONIN T Routine 11/04/2018 10:52 AM MUSSEL FARMER ECG 12-LEAD STAT 11/04/2018 9:34 AM MUSSEL FARMER TROPONIN T Timed 11/04/2018 6:[address] HEAD WO CONTRAST ED 11/04/2018 1 2:33 AM MUSSEL FARMER EGFR STAT 11/03/2018 10:03 PM MUSSEL FARMER DIFFERENTIAL AUTO STAT 11/03/2018 10: 03 PM MUSSEL FARMER CBC WITH AUTO DIFFERENTIAL STAT 11/03/2018 10:03 PM MUSSEL FARMER TROPONIN T STAT 11/03/2018 10:03 PM MUSSEL FARMER COMPREHENSIVE METABOLIC PANEL STAT 11/03/2018 10:03 PM MUSSEL FARMER XR CHEST 1 VIEW ED 11/03/2018 9:55 PM MUSSEL FARMER ECG 12-LEAD STAT 11/03/2018 9:24 PM MUSSEL FARMER D-DIMER, QUANTITATIVE Add-On 11/02/2018 10:03 PM MUSSEL FARMER documented in this encounter Results * STRESS ECHO EXERCISE WO DOPPLER/CF WO CONTRAST (11/06/2018 11:18 AM MUSSEL FARMER) Anatomical Region Laterality Modality Nuclear Medicine 11/06/2018 8:58 AM MUSSEL FARMER Narrative 11/06/2018 1:41 PM MUSSEL FARMER [address] [address] Stress Echocardiogram Report Patient Name: LORENA FLORES : 1990 Study Date: 11/06/2018 08:58:48 Gender: F Tech: A/C TECHNICIAN Location: [place] [address] Ref.Provider: CRISTEL MENCHACA Height(Cm): 170 BSA: Weight(Kg): 79.38 Quality: Good Procedures: Stress Echo Report: Treadmill stress echocardiogram. Indications: Angina. Findings: Stress Echo: Predicted Maximal HR 190 bpm. Resting ECG: Normal sinus rhythm, inferolateral ST/T changes. Exercise ECG: Non-diagnostic ST-T wave changes with exercise. Resting LV Function: Normal left ventricular size and systolic function with normal wall thickness. Post Stress LV Function: Hyperdynamic global contractility, no segmental wall motion abnormality, chamber size smaller. Conclusions: Adequate stress test in regards to heart rate. No definite ischemia on stress EKG. Exercise induced chest pain. No Echocardiographic evidence of ischemia. Electronically Signed By: Dr Jasbir Nielson 2018-11-06 13:41:27 MUSSEL FARMER Procedure Note Jasbir Nielson MD - 11/06/[address] [place] [address] Stress Echocardiogram Report Patient Name: LORENA FLORESPatient ID: [id number] : [id number] Date: 11/06/2018 08:58:48 Gender: FAccession #: [id number] Tech: NPLocation: [id number] Ref.Provider: Lola MENCHACA(Cm): 170 BSA: Weight(Kg): 79.38 Quality: Good Procedures: Stress Echo Report: Treadmill stress echocardiogram. Indications: Angina. Findings: Stress Echo: Predicted Maximal HR 190 bpm. Resting ECG: Normal sinus rhythm, inferolateral ST/T changes. Exercise ECG: Non-diagnostic ST-T wave changes with exercise. Resting LV Function: Normal left ventricular size and systolic function with normal wallthickness. Post Stress LV Function: Hyperdynamic global contractility, no segmental wall motion abnormality,chamber size smaller. Conclusions: Adequate stress test in regards to heart rate. No definite ischemia on stress EKG. Exercise induced chest pain. No Echocardiographic evidence of ischemia. Electronically Signed By: Dr Jasbir Nielson 2018-11-06 13:41:27 MUSSEL FARMER us Jasbir Nielson MD CV ECHO PROCEDURES Final Resu lt * eGFR (11/06/2018 10:38 AM MUSSEL FARMER) eGFR >60 mL/min/1.7 3 m2 [facility] Comment: Interpretive Data Reference Interval Normal ?>/= [...] was last reviewed 2016. Blood specimen (specimen) 11/06/2018 10:38 AM MUSSEL FARMER 11/06/2018 10:38 AM MUSSEL FARMER Narrative [facility] ([place]) - 11/06/2018 11:09 AM MUSSEL FARMER us Cristel Menchaca MD LAB BLOOD ORDERABLES Final Re sult [facility] ([place]) [address] [facility] Department [place] [address] * Basic metabolic panel (11/06/2018 10:38 AM MUSSEL FARMER) Sodium 141 135 - 145 mmol/L [facility] ([place]) Potassium, pl 3.6 3.3 - 4.9 mmol/L [facility] ([place]) Chloride 109 97 - 110 mmol/L [facility] ([place]) CO2 22 22 - 32 mmol/L [facility] ([place]) Anion gap 10 2 - 15 mmol/L [facility] ([place]) BUN 12 8 - 25 mg/dL [facility] ([place] Creatinine 0.83 0.60 - 1.10 mg/dL [facility] ([place]) Glucose 89 70 - 199 mg/dL [facility] ([place]) Comment: Interpretive Data Fasting glucose [...] interpretive data was last revised 2017. Calcium 9.2 8.5 - 10.3 mg/dL [facility] ([place]) Blood specimen (specimen) 11/06/2018 10:38 AM MUSSEL FARMER 11/06/2018 10:38 AM MUSSEL FARMER Narrative [facility] ([place]) - 11/06/2018 11:09 AM MUSSEL FARMER us Cristel Menchaca MD LAB BLOOD ORDERABLES Final Re sult [facility] ([place]) [address] [facility] Department [place] [address] * (ABNORMAL) CBC without differential (11/06/2018 10:38 AM MUSSEL FARMER) WBC 7.1 3.8 - 9.9 K/cumm [facility] ([place]) Hgb 11.5(L) 11.9 - 15.5 g/dL [facility] ([place]) Hct 36.3 35.6 - 45.5 % [facility] ([place]) Plt 277 150 - 400 K/cumm [facility] ([place]) MPV 9.6 9.1 - 12.3 fL [facility] ([place]) RBC 3.97 3.90 - 5.20 M/cumm [facility] ([place]) MCV 91.4 81.3 - 96.4 fL [facility] ([place]) MCH 29.0 27.1 - 33.3 pg [facility] ([place]) MCHC 31.7(L) 32.3 - 35.7 g/dL [facility] ([place]) RDW CV 12.4 11.1 - 14.9 % [facility] ([place]) RDW SD 41.4 35.7 - 48.1 fL [facility] ([place]) NRBC abs 0.00 0.00 - 0.01 K/cumm [facility] ([place]) Blood specimen (specimen) 11/06/2018 10:38 AM MUSSEL FARMER 11/06/2018 10:38 AM MUSSEL FARMER Narrative [facility] MOREL[facility]) - 11/06/2018 10:42 AM MUSSEL FARMER us Cristel Menchaca MD LAB BLOOD ORDERABLES Final Re sult [facility]EL[facility]) [address] [facility] Department [place] [address] * eGFR (11/05/2018 5:51 AM MUSSEL FARMER) eGFR >60 mL/min/1.7 3 m2 [facility] ([place]) Comment: [...] was last reviewed 2016. Blood specimen (specimen) 11/05/2018 5:51 AM MUSSEL FARMER 11/05/2018 5:59 AM MUSSEL FARMER Narrative [facility]HA MORELAND) - 11/05/2018 6:24 AM MUSSEL FARMER us Cristel Menchaca MD LAB BLOOD ORDERABLES Final Re sult [facility] ([place]) [address] [facility] [place] [address] * Basic metabolic panel (11/05/2018 5:51 AM MUSSEL FARMER) Sodium 141 135 - 145 mmol/L [facility] ([place]) Potassium, pl 3.3 3.3 - 4.9 mmol/L [facility] ([place]) Chloride 109 97 - 110 mmol/L [facility] ([place]) CO2 23 22 - 32 mmol/L [facility] ([place]) Anion gap 9 2 - 15 mmol/L [facility] ([place]) BUN 15 8 - 25 mg/dL [facility] ([place]) Creatinine 0.85 0.60 - 1.10 mg/dL [facility] ([place]) Glucose 103 70 - 199 mg/dL [facility] ([place]) Comment: Interpretive Data Fasting glucose [...] interpretive data was last revised 2017. Calcium 8.9 8.5 - 10.3 mg/dL [facility] ([place]) Blood specimen (specimen) 11/05/2018 5:51 AM MUSSEL FARMER 11/05/2018 5:59 AM MUSSEL FARMER Narrative [facility] ([place]) - 11/05/2018 6:24 AM MUSSEL FARMER us Cristel Menchaca MD LAB BLOOD ORDERABLES Final Re sult [facility] ([place]) [address] [facility] [place] [address] * (ABNORMAL) CBC without differential (11/05/2018 5:51 AM MUSSEL FARMER) WBC 7.2 3.8 - 9.9 K/cumm [facility] ([place]) Hgb 11.2(L) 11.9 - 15.5 g/dL [facility] ([place]) Hct 33.4(L) 35.6 - 45.5 % [facility] ([place]) Plt 280 150 - 400 K/cumm [facility] ([place]) MPV 9.2 9.1 - 12.3 fL [facility] ([place]) RBC 3.80(L) 3.90 - 5.20 M/cumm [facility] ([place]) MCV 87.9 81.3 - 96.4 fL [facility] ([place]) MCH 29.5 27.1 - 33.3 pg [facility] ([place]) MCHC 33.5 32.3 - 35.7 g/dL [facility] ([place]) RDW CV 12.4 11.1 - 14.9 % [facility] ([place]) RDW SD 39.9 35.7 - 48.1 fL [facility] ([place]) NRBC abs 0.00 0.00 - 0.01 K/cumm [facility] ([place]) Blood specimen (specimen) 11/05/2018 5:51 AM MUSSEL FARMER 11/05/2018 6:00 AM MUSSEL FARMER Narrative [facility] ([place]) - 11/05/2018 6:03 AM MUSSEL FARMER us Cristel Menchaca MD LAB BLOOD ORDERABLES Final Re sult [facility] ([place]) [address] [facility] Department [place] [address] * Troponin T (11/04/2018 10:52 AM MUSSEL FARMER) Troponin T <0.01 0.00 - 0.01 ng/mL [...] limit for troponin assay. ??Journal of the [employer] 2012;60:1581-98. Current Interpretive Data Last Revised Date: 2018. Blood specimen (specimen) 11/04/2018 10:52 AM MUSSEL FARMER 11/04/2018 11:10 AM MUSSEL FARMER Narrative [facility] ([place]) - 11/04/2018 11:29 AM MUSSEL FARMER Cristel Menchaca MD LAB BLOOD ORDERABLES Final Re sult Performing Organization Address City/[facility]/ZIP Co de Phone Number [facility] ([place]) [address] [facility] Department [place] [address] * ECG 12 lead (11/04/2018 9:34 AM MUSSEL FARMER) Patient age 28 years [facility] Interpretation Text SINUS RHYTHMSEPTAL MYOCARDIAL INFARCTIONABNORMAL ECGPREVIOUS TRACIN10/16/2018 17.02compared to previous tracingrate is slowerST/T changes now less prominent. [facility] Comment:Physician Interprete r Dr. Jasbir Nielson M.D. Ventricular Rate EKG/Min 68 /min [facility] P Wave Duration 126 ms [facility] QRS-Interval (MSEC) 85 ms [facility] SD-Interval (MSEC) 158 ms [facility] QT Interval 389 ms [facility] QTc 403 ms [facility] QTC Interval ms [facility] P [place] 55 deg [facility] QRS [place] 12 deg [facility] T [place] 26 deg [facility] 11/04/2018 9:34 AM MUSSEL FARMER Cristel Menchaca MD ECG ORDERABLES Final Result Performing Organization Address [facility] Co de Phone Number [facility] * Troponin T (11/04/2018 6:49 AM MUSSEL FARMER) Troponin T <0.01 0.00 - 0.01 ng/mL [facility] ([place]) Comment: Interpretive Data Reference ranges for children <18 years of age have not been established. - > or = 18 years: Serial determinations are recommended for the diagnosis of myocardial infarction. ??Temporal rise and fall are consistent with myocardial infarction when at least one value is above the 99th percentile upper reference limit for troponin assay. ??Journal of the [employer] 2012;60:1581-98. Current Interpretive Data Last Revised Date: 2018. Blood specimen (specimen) 11/04/2018 6:49 AM MUSSEL FARMER 11/04/2018 7:00 AM MUSSEL FARMER Narrative [facility] ([place]) - 11/04/2018 7:20 AM MUSSEL FARMER Silvino Camacho MD LAB BLOOD ORDERABLES Final R esult [facility] ([place]) [address] [facility] Department [place] [address] * CT Head WO Contrast (11/04/2018 12:33 AM MUSSEL FARMER) Anatomical Region Laterality Modality Head and Neck N/A Computed Tomogra phy 11/04/2018 8:10 AM MUSSEL FARMER Impressions 11/04/2018 8:11 AM [address] FARMER NORMAL CT HEAD WITHOUT CONTRAST. Electronically signed by: Carmelo Clay M.D. Narrative 11/04/2018 8:[address] HEAD WO CONTRAST HISTORY: Numbness or tingling, paresthesia. ??Left upper extremity pain, numbness and tingling. COMPARISON: 10/30/2018 TECHNIQUE: Sequential axial images of the brain were obtained without contrast. ?? FINDINGS: There is no evidence of intracranial hemorrhage, mass lesion or acute infarction. The ventricles, gyri, and sulci demonstrate normal size and configuration. Midline is normal. The extraaxial structures are unremarkable. Procedure Note Carmelo Clay MD - 11/04/2018 CT HEAD WO CONTRAST HISTORY: Numbness or tingling, paresthesia. Left upper extremity pain, numbness and tingling. COMPARISON: 10/30/2018 TECHNIQUE: Sequential axial images of the brain were obtained without contrast. FINDINGS: There is no evidence of intracranial hemorrhage, mass lesion or acute infarction. The ventricles, gyri, and sulci demonstrate normal size and configuration. Midline is normal. The extraaxial structures are unremarkable. IMPRESSION: NORMAL CT HEAD WITHOUT CONTRAST. Electronically signed by: Carmelo Clay M.D. Silvino Camacho MD IMG CT PROCEDURES Final Resu lt * eGFR (11/03/2018 10:03 PM [facility]) eGFR >60 mL/min/1.7 3 m2 SASHA BRYAN ([place]HAEL) Comment: [...] was last reviewed 2016. Blood specimen (specimen) 11/03/2018 10:03 PM [facility] 11/03/2018 10:09 PM [facility] Narrative SASHA BRYAN (MICHAEL) - 11/03/2018 10:37 PM [facility] Silvino Camacho MD LAB BLOOD ORDERABLES Final R esult SASHA RBYAN ([place]) 1 [facility] Department [place] [address] * Differential, auto (11/03/2018 10:03 PM [facility]) Neutrophil abs 4.8 1.7 - 6.5 K/cumm [facility] ([place]EL) Imm gran abs 0.0 0.0 - 0.1 K/cumm [facility] ([place]) Lymphocyte abs 3.3 0.8 - 3.3 K/cumm [facility] ([place]) Monocyte abs 0.7 0.2 - 0.8 K/cumm [facility] ([place]) Eosinophil abs 0.3 0.0 - 0.5 K/cumm [facility] ([place]) Basophil abs 0.0 0.0 - 0.1 K/cumm [facility] ([place]) Neutrophil pct 53.1 % [facility] ([place]) Comment: Interpretive [...] was last revised on 2018. Lymphocyte pct 35.7 % [facility] ([place]) Comment: Interpretive Data Percent cell count reference ranges are not reported, since discordance with absolute values may lead to misinterpretation of CBC data. Current Interpretive Data was last revised on 2018. Monocyte pct 7.5 % [facility] ([place]) Comment: Interpretive Data Percent cell count reference ranges are not reported, since discordance with absolute values may lead to misinterpretation of CBC data. Current Interpretive Data was last revised on 2018. Eosinophil pct 3.1 % [facility] ([place]) Comment: Interpretive [...] last revised on 2018. Blood specimen (specimen) 11/03/2018 10:03 PM [facility] 11/03/2018 10:09 PM [facility] Narrative SASHA BRYAN ([place]) - 11/03/2018 10:12 PM [employer] Silvino Camacho MD LAB BLOOD ORDERABLES Final R esult SASHA BRYAN ([place]) 1 [facility] [place] [address] * Troponin T (11/03/2018 10:03 PM [facility]) Pathologist [facility] Troponin T <0.01 0.00 - 0.01 ng/mL SASHA BRYAN ([place]EL) Comment: Interpretive Data Reference ranges for children <18 years of age have not been established. - > or = 18 years: Serial determinations are recommended for the diagnosis of myocardial infarction. ??Temporal rise and fall are consistent with myocardial infarction when at least one value is above the 99th percentile upper reference limit for troponin assay. ??Journal of the [employer] 2012;60:1581-98. Current Interpretive Data Last Revised Date: 2018. Blood specimen (specimen) 11/03/2018 10:03 PM [facility] 11/03/2018 10:09 PM [facility] [employer] Narrative SASHA BRYAN ([place]EL) - 11/03/2018 10:37 PM [employer] Silvino Camacho MD LAB BLOOD ORDERABLES Edited Result - Final Performing Organization Address [facility]/ZIP Co de Phone Number ITALOPRINCESS RANDI (MICHAEL) 1 [facility] [place] [address] * (ABNORMAL) Comprehensive metabolic panel (11/03/2018 10:03 PM [facility]ER) Pathologist [facility] Sodium 142 135 - 145 mmol/L [facility] ([place]) Potassium, pl 3.2(L) 3.3 - 4.9 mmol/L [facility] ([place]) Chloride 103 97 - 110 mmol/L [facility] ([place]) CO2 26 22 - 32 mmol/L [facility] ([place]) Anion gap 13 2 - 15 mmol/L [facility] ([place]) BUN 14 8 - 25 mg/dL [facility] ([place]) Creatinine 0.71 0.60 - 1.10 mg/dL [facility] ([place]) Glucose 112 70 - 199 mg/dL [facility] ([place]) [...] interpretive data was last revised 2017. Calcium 9.4 8.5 - 10.3 mg/dL [facility] ([place]) Bilirubin, total 0.3 0.1 - 1.2 mg/dL [facility] ([place]) Protein, pl 7.6 6.5 - 8.5 g/dL [facility] ([place]) Albumin 4.4 3.5 - 5.0 g/dL [facility] ([place]) Alk phos 85 40 - 130 Units/L [facility] ([place]) ALT 12 7 - 45 Units/L [facility] ([place]) AST 12 10 - 45 Units/L [facility] ([place]) Blood specimen (specimen) 11/03/2018 10:03 PM [facility] 11/03/2018 10:09 PM [facility] Narrative [facility] ([place]) - 11/03/2018 10:37 PM [facility] [employer] us Silvino Camacho MD LAB BLOOD ORDERABLES Final R esult [facility] 1 [facility] Department [place] [address] * CBC with auto differential (11/03/2018 10:03 PM [facility]) WBC 9.2 3.8 - 9.9 K/cumm [facility] ([place]) Hgb 13.2 11.9 - 15.5 g/dL [facility] ([place]) Hct 39.7 35.6 - 45.5 % [facility] ([place]) Plt 345 150 - 400 K/cumm [facility] ([place]) MPV 9.3 9.1 - 12.3 fL [facility] ([place]) RBC 4.55 3.90 - 5.20 M/cumm [facility] ([place]) MCV 87.3 81.3 - 96.4 fL [facility] ([place]) MCH 29.0 27.1 - 33.3 pg [facility] ([place]) MCHC 33.2 32.3 - 35.7 g/dL [facility] ([place]) RDW CV 12.3 11.1 - 14.9 % [facility] ([place]) RDW SD 39.4 35.7 - 48.1 fL [facility] NRBC abs 0.00 0.00 - 0.01 K/cumm [facility] Blood specimen (specimen) 11/03/2018 10:03 PM [facility] 11/03/2018 10:09 PM [facility] Narrative [facility] ([place]) - 11/03/2018 10:12 PM [employer] Silvino Camacho MD LAB BLOOD ORDERABLES Final R esult [facility] ([place]) 1 [facility] Department [place] [address] * XR Chest 1 Vw Portable (11/03/2018 9:55 PM [facility]) Anatomical Region Laterality Modality Body, Chest N/A Computed Radiogr aphy 11/04/2018 6:04 AM [facility] Impressions 11/04/2018 6:04 AM [facility] NO ACTIVE CARDIOPULMONARY DISEASE. Electronically signed by: Carmelo Clay M.D. Narrative 11/04/2018 6:04 AM [facility] XR CHEST 1 VIEW HISTORY: Chest Pain. ??Shortness of breath. COMPARISON: 10/30/2018 FINDINGS: One view of the chest obtained at 21:51 hrs demonstrates clear lungs bilaterally with no focal infiltrates. ??The heart size and pulmonary vascularity are normal. Procedure Note Carmelo Clay MD - 11/04/2018 XR CHEST 1 VIEW HISTORY: Chest Pain. Shortness of breath. COMPARISON: 10/30/2018 FINDINGS: One view of the chest obtained at 21:51 hrs demonstrates clear lungs bilaterally with no focal infiltrates. The heart size and pulmonary vascularity are normal. IMPRESSION: NO ACTIVE CARDIOPULMONARY DISEASE. Electronically signed by: Carmelo Clay M.D. Silvino Camacho MD IMG XR PROCEDURES Final Resu lt * ECG 12 lead (11/03/2018 9:24 PM [facility]ER) Pathologist [facility] Patient age 28 years [facility] Interpretation Text SINUS TACHYCARDIAPOSSIBLE LEFT ATRIAL ENLARGEMENTNONSPECIFIC ST & T-WAVE ABNORMALITYABNORMAL RHYTHM ECGcompared to previous tracing of 10/16/2018ST/T changes are now more prominent. [facility] Comment:Physician Interprete r Dr. Jasbir Nielson M.D. Ventricular Rate EKG/Min 116 /min [facility] P Wave Duration 124 ms [facility] QRS-Interval (MSEC) 79 ms [facility] SD-Interval (MSEC) 135 ms [facility] QT Interval 341 ms [facility] QTc 439 ms [facility] QTC Interval ms [facility] P [place] 65 deg [facility] QRS [place] 33 deg [facility] T [place] 62 deg [facility] 11/03/2018 9:24 PM [employer] Silvino Camacho MD ECG ORDERABLES Final Result [facility] * (ABNORMAL) D-dimer, quantitative (11/02/2018 10:03 PM [facility] [facility]ER) Pathologist [facility] D-dimer <150(L) 150 - 230 ng/mL D-DU SASHA BRYAN ([place]) Comment: Interpretive Data This D-dimer test is approved by the FDA to exclude suspected PE and DVT in outpatients when the result is <230 ng/mL in conjunction with a pre-test probability score of low or moderate using the Wells criteria. Current Interpretive Data was last revised on 2015. Blood specimen (specimen) 11/02/2018 10:03 PM [facility] 11/03/2018 11:43 PM [employer] Narrative ITALOPRINCESS RANDI (MICHAEL) - 11/04/2018 12:21 AM [employer] Silvino Camacho MD LAB BLOOD ORDERABLES Final R esult SASHA BRYAN ([place]) 1 [facility] Department [place] [address] documented in this encounter Visit Diagnoses Diagnosis Unstable angina (CMS/HCC) (HCC)- Primary Intermediate coronary syndrome Acute chest pain Unspecified chest pain Neuropathy (CMS/HCC) Mononeuritis of unspecified site Hypokalemia Hypopotassemia Secondary hypertension Other secondary hypertension, unspecified Idiopathic peripheral neuropathy Unspecified hereditary and idiopathic peripheral neuropathy History of migraine headaches Acute chest pain Unspecified chest pain documented in this encounter Administered Medications Inactive Administered Medications - up to 3 most recent administrations Medication Order MAR Action Action Date Dose Rate Site ALPRAZolam (XANAX) tablet 0.25 mg 0.25 mg, oral, Every 6 hours PRN, anxiety, Starting on 11/04/18 at 1146 Given 11/05/2018 9:13 AM [facility] 0.25 mg Given 11/05/2018 2:41 AM [employer] 0.25 mg Given 11/04/2018 8:35 PM [employer] 0.25 mg ALPRAZolam (XANAX) tablet 0.5 mg 0.5 mg, oral, Every 6 hours PRN, anxiety, Starting on 11/05/18 at 1228 Given 11/06/2018 12:05 AM [employer] 0.5 mg Given 11/05/2018 5:12 PM [facility] [facility] 0.5 mg aspirin enteric coated tablet 81 mg 81 mg, oral, Daily, First dose on 11/04/18 at 1000, Do not crush, chew, cut, dissolve, open or otherwise manipulate tablet/capsule. Given 11/06/2018 9:51 AM [facility] [facility] 81 mg Given 11/05/2018 8:11 AM [facility] [facility] 81 mg Given 11/04/2018 9:23 AM [employer] 81 mg ibuprofen (ADVIL,MOTRIN) tablet 600 mg 600 mg, oral, Once, On 11/04/18 at 0500, For 1 dose Given 11/04/2018 6:54 AM [employer] [facility] 600 mg ketorolac (TORADOL) injection 30 mg 30 mg, intravenous, Once, On 11/04/18 at 0031, For 1 dose, For Adult IV push, administer over 15 seconds Given 11/04/2018 12:31 AM [facility] 30 mg morphine 2 mg/mL oral solution 15 mg 15 mg, feeding tube, Every 4 hours PRN, 2nd line for pain, Starting on 11/05/18 at 1229 Given 11/06/2018 12:04 AM [facility] [facility] 15 mg Given 11/05/2018 6:44 PM [employer] [facility] 15 mg Given 11/05/2018 1:40 PM [facility] [facility] 15 mg morphine injection 2 mg 2 mg, intravenous, Administer over 4 Minutes, Once, On 11/04/18 at 2130, For 1 dose Given 11/04/2018 9:07 PM [facility] [address] (PROTONIX) extended release tablet 40 mg 40 mg, oral, Daily, First dose on 11/04/18 at 1000, Do not crush, chew, cut, dissolve, open or otherwise manipulate tablet/capsule., Indications: Treatment of Non-Bleeding Gastric DisorderIndications:Treatment of Non-Bleeding Gastric Disorder Given 11/06/2018 9:51 AM [facility] 40 mg Given 11/05/2018 8:11 AM [employer] [facility] 40 mg Given 11/04/2018 10:03 AM [facility] [facility] 40 mg potassium chloride ER (KLOR-CON,K-DUR) extended release tablet 20 mEq 20 mEq, oral, Once, On Tue11/03/18 at 2358, For 1 dose, Do not crush, chew, cut, dissolve, open or otherwise manipulate tablet/capsule. Given 11/04/2018 12:30 AM [facility] 20 mEq potassium chloride ER (KLOR-CON,K-DUR) extended release tablet 40 mEq 40 mEq, oral, Once, On 11/04/18 at 0930, For 1 dose, Do not crush, chew, cut, dissolve, open or otherwise manipulate tablet/capsule. Given 11/04/2018 9:23 AM [facility] 40 mEq pregabalin (LYRICA) capsule 50 mg 50 mg, oral, 3 times daily, First dose on 11/04/18 at 1000 Given 11/06/2018 9:51 AM [facility] [facility] 50 mg Given 11/05/2018 10:56 PM [facility] [facility] 50 mg Given 11/05/2018 3:28 PM [employer] [facility] 50 mg topiramate (TOPAMAX) tablet 50 mg 50 mg, oral, 2 times daily, First dose on 11/04/18 at 1000 Given 11/06/2018 9:51 AM [facility] [facility] 50 mg Given 11/05/2018 10:50 PM [facility] 50 mg Given 11/05/2018 8:11 AM [employer] 50 mg traMADol (ULTRAM) tablet 50 mg 50 mg, oral, Every 6 hours PRN, 2nd line for pain, Starting on 11/04/18 at 0854 Given 11/05/2018 9:13 AM [employer] 50 mg Given 11/05/2018 2:41 AM [employer] [facility] 50 mg Given 11/04/2018 4:27 PM [facility] [facility] 50 mg documented in this encounter Discontinued Medications Medication Sig Discontinue Reason Start Date End Da te topiramate (TOPAMAX) 25 mg tablet Take 50 mg by mouth 2 (two) times a day. 11/04/2018 amLODIPine (NORVASC) 10 mg tablet Take 10 mg by mouth daily. 11/04/2018 SUMAtriptan (IMITREX) 100 mg tablet Take 1 tablet (100 mg total) by mouth once as needed for migraine (headache) for up to 1 dose. May repeat one time after 2 hours if needed. Stop Taking at Discharge 08/09/2018 11/06/2018 losartan (COZAAR) 25 mg tablet Take 1 tablet (25 mg total) by mouth daily. Stop Taking at Discharge 11/02/2018 11/06/2018 hydroCHLOROthiazide (HYDRODIURIL) 12.5 mg tablet Take 1 tablet (12.5 mg total) by mouth daily. Stop Taking at Discharge 11/02/2018 11/06/2018 documented as of this encounter Historical Medications * This list may reflect changes made after this encounter. topiramate (TOPAMAX) 25 mg tablet Take 50 mg by mouth 2 (two) times a day. 11/04/2018 amLODIPine (NORVASC) 10 mg tablet Take 10 mg by mouth daily. 11/04/2018 added in this encounter Active and Recently Administered Medications Times are shown in [facility] [facility]. Scheduled Medication Order 11/04/2018 11/05/2018 11/06/2018 aspirin enteric coated tablet 81 mg 81 mg, oral, Daily, First dose on 11/04/18 at 1000, Do not crush, chew, cut, dissolve, open or otherwise manipulate tablet/capsule. 0923 (Given - Provider: Genesis Herrera RN) 0811 (Given - Provider: Hoda Calixto, PITA) 0951 (Given - Provider: Genesis Herrera RN) ibuprofen (ADVIL,MOTRIN) tablet 600 mg (COMPLETED) 600 mg, oral, Once, On 11/04/18 at 0500, For 1 dose 0654 (Given - Provider: Samantha Davidson, PIAT) ketorolac (TORADOL) injection 30 mg (COMPLETED) 30 mg, intravenous, Once, On 11/04/18 at 0031, For 1 dose, For Adult IV push, administer over 15 seconds 0031 (Given - Provider: Ela Fiore, PITA) morphine injection 2 mg (COMPLETED) 2 mg, intravenous, Administer over 4 Minutes, Once, On 11/04/18 at 2130, For 1 dose 2107 (Given - Provider: Samantha Davidson, PITA) pantoprazole DR (PROTONIX) extended release tablet 40 mg 40 mg, oral, Daily, First dose on 11/04/18 at 1000, Do not crush, chew, cut, dissolve, open or otherwise manipulate tablet/capsule., Indications: Treatment of Non-Bleeding Gastric Disorder 1003 (Given - Provider: Genesis Herrera RN) 0811 (Given - Provider: Hoda Calixto, PITA) 0951 (Given - Provider: Genesis Herrera RN) potassium chloride ER (KLOR-CON,K-DUR) extended release tablet 20 mEq (COMPLETED) 20 mEq, oral, Once, On Tue11/03/18 at 2358, For 1 dose, Do not crush, chew, cut, dissolve, open or otherwise manipulate tablet/capsule. 0030 (Given - Provider: Ela Fiore, PITA) potassium chloride ER (KLOR-CON,K-DUR) extended release tablet 40 mEq (COMPLETED) 40 mEq, oral, Once, On 11/04/18 at 0930, For 1 dose, Do not crush, chew, cut, dissolve, open or otherwise manipulate tablet/capsule. 0923 (Given - Provider: Genesis Herrera RN) pregabalin (LYRICA) capsule 50 mg 50 mg, oral, 3 times daily, First dose on 11/04/18 at 1000 0923 (Given - Provider: Genesis Herrera RN)1627 (Given - Provider: Genesis Herrera RN)2107 (Given - Provider: Samantha Davidson, PITA) 0811 (Given - Provider: Hoda Calixto, PITA)1528 (Given - Provider: Hoda Calixto, PITA)2256 (Given - Provider: Mary Marie RN) 0951 (Given - Provider: Genesis Herrera RN) topiramate (TOPAMAX) tablet 50 mg 50 mg, oral, 2 times daily, First dose on 11/04/18 at 1000 0923 (Given - Provider: Genesis Herrera RN)2100 (Given - Provider: Samantha Davidson, PITA) 0811 (Given - Provider: Hoda Calixto, PITA)2250 (Given - Provider: Mary Marie, PITA) 0951 (Given - Provider: Genesis Herrera RN) PRN Medication Order 11/04/2018 11/05/2018 11/06/2018 ALPRAZolam (XANAX) tablet 0.25 mg (CANCELED) 0.25 mg, oral, Every 6 hours PRN, anxiety, Starting on 11/04/18 at 1146 1210 (Given - Provider: Genesis Herrera RN)2035 (Given - Provider: Samantha Davidson, PITA) 0241 (Given - Provider: Samantha Davidson, PITA)0913 (Given - Provider: Hoda Calixto, PITA) ALPRAZolam (XANAX) tablet 0.5 mg 0.5 mg, oral, Every 6 hours PRN, anxiety, Starting on 11/05/18 at 1228 1712 (Given - Provider: Hoda Calixto, RN) 0005 (Given - Provider: Mary Marie, RN) morphine 2 mg/mL oral solution 15 mg 15 mg, feeding tube, Every 4 hours PRN, 2nd line for pain, Starting on 11/05/18 at 1229 1340 (Given - Provider: Hoda Calixto, RN)1844 (Given - Provider: Hoda Calixto, PITA) 0004 (Given - Provider: Mary Marie, RN) traMADol (ULTRAM) tablet 50 mg 50 mg, oral, Every 6 hours PRN, 2nd line for pain, Starting on 11/04/18 at 0854 1003 (Given - Provider: Genesis Herrera, RN)1627 (Given - Provider: Genesis Herrera, RN) 0241 (Given - Provider: Samantha Davidson, PITA)0913 (Given - Provider: Hoda Calixto RN) documented in this encounter Orders Medications Ordered That Mehdi ht Not Have Been Administered Count Last Ordered Date First Ordered Date ketorolac (TORADOL) injection 30 mg 2 11/0411/03/2018 SUMAtriptan (IMITREX) tablet 100 mg 1 11/04 Diet Count Last Ordered Date First Orde red Date ADULT DISCHARGE DIET 1 11/06/2018 Nursing Count Last Ordered Date First Orde red Date DISCHARGE ACTIVITY 1 11/06/2018 DISCHARGE CALL PROVIDER 6 11/06/2018 FOLLOW UP PRIMARY PHYSICIAN 1 11/06/2018 FOLLOW UP WITH PROVIDER 1 11/06/2018 CARDIO RESPIRATORY MONITORING 1 11/03/2018 CONTINUOUS PULSE OXIMETRY 1 11/03/2018 IV Count Last Ordered Date First Orde red Date SALINE LOCK IV 1 11/03/2018 Admission Count Last Ordered Date First Orde red Date ASSIGN PATIENT STATUS 2 11/05/20182017 CORE MEASURES Count Last Ordered Date First Ord ered Date REASON FOR NO VTE PROPHYLAXIS AT ADMISSION 1 11/04/2018 ADT Patient Update Count Last Ordered Date Firs t Ordered Date ED IP DECISION TO ADMIT 1 11/04/2018 documented in this encounter Additional Health Concerns Infection Onset Date Last Indicated Resolved Time MRSA Comment:Backloaded September 16, 2011 05/28/2011 05/28/201106/28 5:00 AM CDT documented as of this encounter Care Teams Birth Certificate Clerk Relationship Specialty Start Date End Date See Gonsalez MD PCP - General 10/15/18 02/14/21 [place] [id number] [address] [address] [address] Consulting Physician Cardiovascular Disease 11/01/18 [place] [id number] [address] [address] [address] Consulting Physician Cardiovascular Disease 11/06/18 documented as of this encounter
--- OUTSIDE RECORDS SUMMARY | 2024-11-30 00:28 | XMS_ITS | Encounter Summary ---
Author Organization [facility] Healthcare Address [address] [place] [address] Care Team Providers Care Spiral Winding Machine Helper Name Role Phone Mayela Thomas MD Primary Care Provider [phone] Encounter Details Date Type Department Care Team (Late st Contact Info) Description 10/29/2015 12:03 AM BARREL CUTTER - 10/29/2015 1:18 AM BARREL CUTTER Hospital Encounter [facility] Roddy Crews MD [address] [facility] # [place] [address] Anxiety disorder; Chest pain; Other specified disorders of teeth and supporting structures; Allergy status to other drugs, medicaments and biological substances status Social History Tobacco Use Types Packs/Day Years Used Date Smoking Tobacco: Never Assessed Comments Unknown Sex and Gender Information Value Date Recorded Sex Assigned at Not on file Legal Sex Female 1:47 AM BARREL CUTTER Gender Identity Not on file Sexual Orientation Not on file documented as of this encounter Plan of Treatment Not on file documented as of this encounter Procedures Procedure Name Priority Date/Time Associated Diagnosis Comments XR CHEST PA LATERAL 2 VIEWS Routine 10/29/2015 12:46 AM BARREL CUTTER SERUM MAGNESIUM Routine 10/29/2015 12:29 AM BARREL CUTTER SERUM ESTIMATED GLOMERULAR FILTRATION RATE Routine 10/29/2015 12:29 AM BARREL CUTTER PLASMA TROPONIN-T Routine 10/29/2015 12: 29 AM BARREL CUTTER PLASMA COMPREHENSIVE METABOLIC PANEL Routine 10/29/2015 12:29 AM BARREL CUTTER BLOOD PROTHROMBIN TIME (PT) Routine 10/29/2015 12:29 AM BARREL CUTTER BLOOD PRO B-TYPE NATRIURETIC PEPTIDE Routine 10/29/2015 12:29 AM BARREL CUTTER BLOOD PARTIAL THROMBOPLASTIN TIME (PTT) Routine 10/29/2015 12:29 AM BARREL CUTTER BLOOD CELL COUNT (CBC), MORPHOLOGIC EXAM Routine 10/29/2015 12:29 AM BARREL CUTTER BLOOD CELL MORPHOLOGIC EXAM Routine 10/29/2015 12:29 AM BARREL CUTTER ELECTROCARDIOGRAPHY (ECG) 10/29/2015 DISCHARGE LABORATORY CUMULATIVE REPORT 10/29/2015 documented in this encounter Results * XR Chest PA Lateral 2 View (10/29/2015 12:46 AM BARREL CUTTER) Anatomical Region Laterality Modality Body, Chest N/A Radiographic Tasha ging 10/29/2015 12:4 6 AM BARREL CUTTER Narrative 10/29/2015 8:09 PM BARREL CUTTER XR Chest 2 Views ?[id number] ??Acc#: ??[id number] DATE OF EXAM: ??Dec ??2014 CLINICAL HISTORY: Chest pain and shortness of breath. ??History of anxiety. RESULT: Erect PA and lateral views demonstrate normal heart size and pulmonary vascularity. No infiltrate, mass, pleural effusion is seen. ??Mediastinum is not widened. ??Diaphragm is smooth and costophrenic angles clear. Nipple piercing jewelry is present bilaterally. ??Old midshaft fracture right clavicle is seen. IMPRESSION: 1. ??NO CARDIOPULMONARY ABNORMALITY SEEN. 2. ??OLD RIGHT CLAVICLE FRACTURE. Interpreting Physician: ??DR FREDDY FLORES M.D. ??Read on: ??Dec ??2 2014 8:11A Transcribed by: ??[facility] ??On: Dec ??2014 10:04A Approved Electronically by: ??SANDRA Portillo, DR HAYES ??on: ??Dec ??2014 8:09P Attending: ??RODDY SIMPSON Requesting: ??RODDY SIMPSON Requesting Fax: ??-- Attending Fax: ??-- Attending ID: ??[id number] Requesting ID: ??[id number] Report To 1 ID: ??[id number] Report To 1 Name: ??RODDY SIMPSON Report To 1 FAX: ??-- NextGen Order #: Procedure Note Provider, Esther, - 03/27/2017 XR Chest 2 Views [id number] Acc#: [id number] DATE OF EXAM: Oct 29 2015 CLINICAL HISTORY: Chest pain and shortness of breath. History of anxiety. RESULT: Erect PA and lateral views demonstrate normal heart size and pulmonaryvascularity. No infiltrate, mass, pleural effusion is seen. Mediastinumis not widened. Diaphragm is smooth and costophrenic angles clear. Nipplepiercing jewelry is present bilaterally. Old midshaft fracture rightclavicle is seen. IMPRESSION: 1. NO CARDIOPULMONARY ABNORMALITY SEEN. 2. OLD RIGHT CLAVICLE FRACTURE. Interpreting Physician: DR FREDDY FLORES M.D. Read on: Oct 29 20158:11A Transcribed by: [facility] On: Oct 29 2015 10:04A Approved Electronically by: SANDRA Portillo, DR HAYES on: Oct 29 20158:09P Attending: RODDY SIMPSON Requesting: RODDY SIMPSON Requesting Fax: -- Attending Fax: -- Attending ID: [id number] Requesting ID: [id number] Report To 1 ID: [id number] Report To 1 Name: RODDY SIMPSON Report To 1 FAX: -- NextGen Order #: us Historical Provider IMJamal XR PROCEDURES Final R esult * (ABNORMAL) Plasma comprehensive metabolic panel (10/29/2015 12:29 AM BARREL CUTTER) Sodium 140 135 - 145 mmol/L HISTORICAL RESULTS K, pl 3.4(L) 3.5 - 5.1 mmol/L HISTORICAL RESULTS Chloride 103 97 - 110 mmol/L HISTORICAL RESULTS CO2 26 22 - 32 mmol/L HISTORICAL RESULTS A. gap 14 8 - 16 mmol/L HISTORICAL RESULTS Glucose 94 70 - 199 mg/dl HISTORICAL RESULTS Comment: Interpretive Data Note:The glucose is assumed non fasting Fastin-99 mg/dL Random: ??70-199 mg/dL Either a fasting glucose > 126 mg/dL or a random glucose > 200 mg/dL plus symptoms is diagnostic of diabetes when confirmed on another day. Fasting values > 100 mg/dL but < 125 mg/dL are diagnostic of impaired fasting glucose. Current interpretive data was last revised on 2015. BUN 8.3 8.0 - 25.0 mg/dl HISTORICAL RESULTS Creatinine 0.66 0.60 - 1.10 mg/dl HISTORICAL RESULTS BUN/creat ratio 13 10 - 20 HIST ORICAL RESULTS Calcium 9.0 8.6 - 10.2 mg/dl HISTORICAL RESULTS Protein, sr 6.8 6.0 - 8.4 g/dl HISTORICAL RESULTS Alb 4.0 3.6 - 5.0 g/dl HISTORICAL RESULTS Alb/glob ratio 1.4 1.1 - 1.8 ratio HISTORICAL RESULTS Alk phos 71 40 - 130 Units/L HISTORICAL RESULTS ALT 16 5 - 45 Units/L HISTORICAL RESULTS AST 18 10 - 40 Units/L HISTORICAL RESULTS Bilirubin 0.2 <=1.2 mg/dl HISTORICAL RESULTS Plasma 10/29/2015 12:2 9 AM BARREL CUTTER us Historical Provider LAB BLOOD ORDERABLES Ruby l Result HISTORICAL RESULTS * Plasma troponin-T (10/29/2015 12:29 AM BARREL CUTTER) Troponin T <0.01 0.00 - 0.06 ng/ml HISTORICAL RESULTS Comment: Interpretive Data Troponin table: ? Negative ? 0.00-0.06 ng/ml ? Indeterminate ?0.07-0.10 ng/ml ? Consistent with Myocardial Injury ?Greater than 0.10 ng/ml ?? Current interpretive data was last revised on 2015 Plasma 10/29/2015 12:2 9 AM BARREL CUTTER us Historical Provider MD LAB BLOOD ORDERABLES Ruby l Result Performing Organization Address City/[facility]/ZIP Co de Phone Number HISTORICAL RESULTS * Blood Pro B-type natriuretic peptide (10/29/2015 12:29 AM BARREL CUTTER) Pathologist [facility] Pro BNP 15.0 10.0 - 150.0 pg/ml HISTORICAL RESULTS Comment: Diagnosis of Congestive Heart Failure: ??Heart Failure Unlikely: All Ages ?Less than 300 pg/ml ??Heart Failure Possible: Less than 50Y ?? 300-450 pg/ml ?50-75 Y ? 300-900 pg/ml ?75-160Y ? 300-1800 pg/ml ?Heart Failure Likely: ?? Less than 50Y ?? Greater than 450 pg/ml ?50-75 Y ? Greater than 900 pg/ml ?75-160 Y ?Greater than 1,800 pg/ml ??Renal Failure: ?All Ages ?Greater than 1,200 pg/ml Current interpretive data was last revised on 2015. Blood specimen (specimen) 10/29/2015 12:29 AM BARREL CUTTER us Historical Provider MD LAB BLOOD ORDERABLES Ruby l Result Performing Organization Address City/[facility] Co de Phone Number HISTORICAL RESULTS * Serum magnesium (10/29/2015 12:29 AM BARREL CUTTER) Pathologist [facility] Magnesium 2.1 1.6 - 2.4 mg/dl HISTORICAL RESULTS Serum 10/29/2015 12:2 9 AM BARREL CUTTER Result [facility] Historical Provider MD LAB BLOOD ORDERABLES Ruby l Result Performing Organization Address [facility] de Phone Number HISTORICAL RESULTS * Blood partial thromboplastin time (PTT) (10/29/2015 12:29 AM BARREL CUTTER) PTT 28.7 25.0 - 37.0 seconds HISTORICAL RESULTS Blood specimen (specimen) 10/29/2015 12:29 AM BARREL CUTTER Historical Provider MD LAB BLOOD ORDERABLES Ruby l Result Performing Organization Address [facility] de Phone Number HISTORICAL RESULTS * Blood prothrombin time (PT) (10/29/2015 12:29 AM BARREL CUTTER) Prothrombin time (PT) 11.1 9.5 - 12.5 seconds HISTORICAL RESULTS INR 1.03 0.90 - 1.20 HISTORIC AL RESULTS Comment: Interpretive Data Recommended ranges for Protime INR: 2.0 - 3.0 Most indications for Warfarin therapy (e.g. Treatment of DVT, PE, bioprosthetic valve replacement, prophylaxis venous thrombosis, atrial fibrillation). 2.5 - 3.5 Mechanical mitral valve or dual mechanical mitral and Aortic valve replacement. Current Interpretive Data was last revised on 2015. Blood specimen (specimen) 10/29/2015 12:29 AM BARREL CUTTER Historical Provider MD LAB BLOOD ORDERABLES Ruby l Result Performing Organization Address [facility] de Phone Number HISTORICAL RESULTS * Blood cell morphologic exam (10/29/2015 12:29 AM BARREL CUTTER) Neutrophils 55.8 44.0 - 80.0 % HISTORICAL RESULTS Immature granulocytes 0.3 0.0 - 1.0 % HISTORICAL RESULTS Lymphocytes 34.9 13.0 - 44.0 % HISTORICAL RESULTS Monos 6.9 2.0 - 11.0 % HISTORICAL RESULTS Eosinophils 1.8 0.0 - 6.0 % HISTORICAL RESULTS Basophils 0.3 0.0 - 3.0 % HISTORICAL RESULTS Neutrophils, abs 5.4 1.6 - 7.0 K/cumm HISTORICAL RESULTS Immature granulocyte, abs 0.03 0.00 - 0.20 K/cumm HISTORICAL RESULTS Lymphocytes, abs 3.4 0.5 - 4.3 K/cumm HISTORICAL RESULTS Monocytes, absolute 0.7 0.1 - 1.0 K/cumm HISTORICAL RESULTS Eosinophils, abs 0.2 0.0 - 0.6 K/cumm HISTORICAL RESULTS Basophils, abs 0.0 0.0 - 0.3 K/cumm HISTORICAL RESULTS Blood specimen (specimen) 10/29/2015 12:29 AM BARREL CUTTER Historical Provider LAB BLOOD ORDERABLES Ruby l Result Performing Organization Address [facility] Co de Phone Number HISTORICAL RESULTS * (ABNORMAL) Blood cell count (CBC), morphologic exam (10/29/2015 12:29 AM BARREL CUTTER) Pathologist [facility] WBC 9.8 3.8 - 9.8 K/cumm HISTORICAL RESULTS RBC 3.90 3.90 - 5.00 M/cumm HISTORICAL RESULTS Hgb 11.4(L) 12.1 - 15.1 g/dl HISTORICAL RESULTS Hct 35.7(L) 36.1 - 44.3 % HISTORICAL RESULTS MCV 91.5 80.0 - 100.0 fl HISTORICAL RESULTS MCH 29.2 26.7 - 33.7 pg HISTORICAL RESULTS MCHC 31.9(L) 32.7 - 36.0 g/dl HISTORICAL RESULTS Rdw 12.3 11.5 - 14.6 % HISTORICAL RESULTS Platelets 248 140 - 440 K/cumm HISTORICAL RESULTS MPV 9.3 8.0 - 12.0 fl HISTORICAL RESULTS NRBC 0.0 0.0 - 0.0 % HISTORIC AL RESULTS NRBC, abs 0.00 0.00 - 0.00 K/cumm HISTORICAL RESULTS Blood specimen (specimen) 10/29/2015 12:29 AM BARREL CUTTER Historical Provider LAB BLOOD ORDERABLES Ruby l Result HISTORICAL RESULTS * Serum estimated glomerular filtration rate (10/29/2015 12:29 AM BARREL CUTTER) Pathologist [facility] eGFR >60 ml/min/1.7 3 m2 HISTORICAL RESULTS Comment: Interpretation of Estimated GFR (eGFR): Normal ?>/= 60 mL/min/1.73m2 Possible Chronic Kidney Disease ??15 - 59 mL/min/1.73m2 Possible Kidney Failure ?< 15 ??mL/min/1.73m2 If -Malagasy multiply value by 1.16. ??Estimated glomerular filtration rate is determined by the CKD-EPI equation recommended by the National Kidney Foundation (KDIGO 2012 Clinical Practice Guideline for the Evaluation and Management of Chronic Kidney Disease. ??Kidney Intnl Suppl Nov 2012;3:1). ??The CKD-EPI equation should not be used in acute renal failure or acute kidney injury and is not valid in children. Serum 10/29/2015 12:2 9 AM BARREL CUTTER [facility] Provider LAB BLOOD ORDERABLES Ruby l Result HISTORICAL RESULTS * DISCHARGE LABORATORY CUMULATIVE REPORT (10/29/2015) Narrative 10/29/2015 Ordered by an unspecified provider. [facility] Provider LAB BLOOD ORDERABLES Ruby l Result * ELECTROCARDIOGRAPHY (ECG) (10/29/2015) Narrative 10/29/2015 Ordered by an unspecified provider. [facility] Provider ECG ORDERABLES Final Res ult documented in this encounter Visit Diagnoses Diagnosis Anxiety disorder Anxiety state, unspecified Chest pain Unspecified chest pain Other specified disorders of teeth and supporting structures Allergy status to other drugs, medicaments and biological substances status documented in this encounter Additional Health Concerns Infection Onset Date Last Indicated Resolved Time MRSA Comment:Backloaded September 16, 2011 05/28/2011 05/28/201106/28 5:00 AM CDT documented as of this encounter Care Teams Spiral Winding Machine Helper Relationship Specialty Start Date End Date Mayela Tohmas MD [address] [place] [address] PCP - General 09/06/15 07/29/18 documented as of this encounter
--- OUTSIDE RECORDS SUMMARY | 2024-11-30 00:28 | XMS_ITS | Encounter Summary ---
Author Organization [facility] Healthcare Address [address] [place] [address] Care Team Providers Care Education Program Coordinator Name Role Phone Mayela Thomas MD Primary Care Provider Encounter Details Date Type Department Care Team (Late st Contact Info) Description 01/05/2017 10:23 AM STORE SALES LEADER - 01/05/2017 11:59 PM STORE SALES LEADER Hospital Encounter [facility] Richy Martines MD [address] [place] [address] [address] [address] Gestational diabetes mellitus, diet-controlled Social History Tobacco Use Types Packs/Day Years Used Date Smoking Tobacco: Never Assessed Comments Unknown Sex and Gender Information Value Date Recorded Sex Assigned at Not on file Legal Sex Female 1:47 AM STORE SALES LEADER Gender Identity Not on file Sexual Orientation Not on file documented as of this encounter Plan of Treatment Not on file documented as of this encounter Visit Diagnoses Diagnosis Gestational diabetes mellitus, diet-controlled Abnormal maternal glucose tolerance, complicating , childbirth, or the puerperium, unspecified as to episode of care documented in this encounter Additional Health Concerns Infection Onset Date Last Indicated Resolved Time MRSA Comment:Backloaded September 16, 2011 05/28/2011 05/28/201106/28 5:00 AM CDT documented as of this encounter Care Teams Education Program Coordinator Relationship Specialty Start Date End Date Mayela Thomas MD [address] [place] [address] PCP - General 09/06/15 07/29/18 documented as of this encounter
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
--- OUTSIDE RECORDS SUMMARY | 2024-11-30 00:28 | XMS_ITS | Encounter Summary ---
Author Organization [facility] Healthcare Address [address] [place] [address] Care Team Providers Care Surgical Dressing Maker Name Role Phone Shante Thomas MD Primary Care Provider [phone] Encounter Details Date Type Department Care Team (Latest Contact Info) Description 07/31/2018 9:29 AM CDT - 07/31/2018 11:59 PM CDT Hospital Encounter [facility] Discharge Disposition: Discharge to home or self care Social History Tobacco Use Types Packs/Day Years Used Date Smoking Tobacco: Never Smokeless Tobacco: Never Comments No Sex and Gender Information Value Date Recorded Sex Assigned at Not on file Legal Sex Female 1:47 AM COBOL PROGRAMMER Gender Identity Not on file Sexual Orientation Not on file documented as of this encounter Medications at Time of Discharge amLODIPine (NORVASC) 10 mg tablet Take 1 tablet (10 mg total) by mouth daily. 30 tablet 08/03/2018 cephalexin (KEFLEX) 500 mg capsuleIndication s:Urinary Tract/Genitourina ry Infection Take 1 capsule (500 mg total) by mouth 2 (two) times a day for 5 days. 10 capsule 08/02/2018 08/07/2018 sulfamethoxazole- trimethoprim (BACTRIM,SEPTRA) 800-160 mg per tablet Take 1 tablet by mouth 2 (two) times a day for 7 days. 14 tablet 07/30/2018 08/02/2018 topiramate (TOPAMAX) 25 mg tablet Take 2 [...] documented as of this encounter Care Teams Surgical Dressing Maker Relationship Specialty Start Date End Date Shante Thomas MD PCP - General 07/30/18 10/14/18 documented as of this encounter
--- OUTSIDE RECORDS SUMMARY | 2024-11-30 00:28 | XMS_ITS | Encounter Summary ---
Author Organization [facility] Healthcare Address [address] [place] [address] Care Team Providers [employer] Name Role Phone Shante Thomas MD Primary Care Provider [phone] Reason for Visit * Reason Comments Hypertension Encounter Details Date Type Department Care Team (Late st Contact Info) Description 07/31/2018 10:02 AM CDT - 08/02/2018 4:39 PM CDT Hospital Encounter [facility] [address] [place] [address] Keeley Ramirez Narine, MD [address] [place] [address] [address] [place] [id number] Adri Fletcher MD [address] [place] [address] DR KRAMER [address] [place] [id number] Hypertensive emergency (Primary Dx) Discharge Disposition: Discharge to home or self care Social History Tobacco Use Types Packs/Day Years Used Date Smoking Tobacco: Never Smokeless Tobacco: Never Comments No Sex and Gender Information Value Date Recorded Sex Assigned at Not on file 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 Gender Identity Not on file Sexual Orientation Not on file documented as of this encounter Last Filed Vital Signs Vital Sign Reading Time Taken Comments Blood Pressure 134/68 08/02/2018 3:04 PM CDT Pulse 74 08/02/2018 3:04 PM CDT Temperature 36.3 ??C (97.3 ??F) 08/02/2018 3:04 PM CD T Respiratory Rate 16 08/02/2018 3:04 PM CDT Oxygen Saturation 100% 08/02/2018 3:04 PM CDT Inhaled Oxygen Concentration - - Weight 85.8 kg (189 lb 2.5 oz) 08/01/2018 2:17 P M CDT Height 170.2 cm (5' 7 ) 08/01/2018 2:17 PM CDT Body Mass Index 29.63 08/01/2018 2:17 PM CDT documented in this encounter Discharge Summaries * Adri Fletcher MD - 08/02/2018 3:12 PM CDT Inpatient Discharge Summary BRIEF OVERVIEW Admitting Provider: Berta Leija MD Discharge Provider: Adri Fletcher MD Primary Care Physician at Discharge: Shante Thomas MD [phone] Admission Date: 07/31/2018 Discharge Date: 08/02/2018 Primary Discharge Diagnosis: Hypertensive urgency Secondary Discharge Diagnosis: headache DETAILS OF HOSPITAL STAY Presenting Problem/History of Present Illness: .Patient is a 27 y.o. female Presents to the ED with a chief complaint of hypertension Please referto H&P for further details Hospital Course: 1. Hypertensive urgency : Patient was initially admitted to ICU : Once the blood pressure was well controlled. patient was transferred to medical floors. patient is presently on Norvasc blood pressure is well controlled?? 2. Headache : CT head is negative for any acute intracranial process. P.r.n. pain medications ?? 3. History of UTI : cultures no growth, discharge patient on Keflex to complete a course of treatment ?? 4. Hypokalemia : replaced Test Results Pending at Discharge: none Operative Procedures Performed:none Other Procedures: none Pertinent Test Results: Ct head Discharge Details Physical Exam at Discharge: Discharge Condition: stable Pulse: 74 Resp: 16 BP: 134/68 Temp: 36.3 ??C (97.3 ??F) Weight: 85.8 kg (189 lb 2.5 oz) BP 134/68 (BP Location: Right arm) Pulse 74 Temp 36.3 ??C (97.3 ??F) (Temporal) Resp 16 Ht 170.2 cm (5' 7 ) Wt 85.8 kg (189 lb 2.5 oz) LMP 07/25/2018 SpO2 100% BMI 29.63 kg/m?? Pertinent Exam Findings at Discharge: General appearance: Alert, oriented, in no distress. HEENT: No pallor CVS: S1, S2 normal Respiration: Clear to auscultation bilaterally Abdomen: Soft, nontender, nondistended, bowel sounds normoactive Extremities: No pedal edema, no calf tenderness Neuro: No focal deficits Psychiatric: Normal mood and affect Labs at discharge: Recent Results (from the past 24 hour(s)) Sodium level Collection Time: 08/02/18 5:04 AM Result Value Ref Range Sodium 134 (L) 135 - 145 mmol/L Phosphorus Collection Time: 08/02/18 5:04 AM Result Value Ref Range Phosphorus, pl 3.0 2.3 - 4.5 mg/dL Potassium Collection Time: 08/02/18 5:04 AM Result Value Ref Range Potassium, pl 3.9 3.3 - 4.9 mmol/L Magnesium Collection Time: 08/02/18 5:04 AM Result Value Ref Range Magnesium 2.0 1.6 - 2.4 mg/dL Urinalysis reflex to microscopic and culture Urine Collection Time: 08/02/18 6:18 AM Result Value Ref Range Color, ur Yellow Yellow Clarity, ur Cloudy (A) Clear Specific gravity, ur 1.024 1.010 - 1.025 pH, urine 6.0 Protein, ur ql Negative Negative Glucose, ur ql Negative Negative Ketones, ur Trace Negative Bilirubin, ur Negative Negative Blood, ur Negative Negative Urobilinogen, ur 0.2 mg/dL Nitrite, ur Negative Negative Leukocyte esterase, ur 1+ (A) Negative Urinalysis, microscopic only Collection Time: 08/02/18 6:18 AM Result Value Ref Range WBC, ur 11-20 (A) 0 - 5 /HPF RBC, ur 0-5 0 - 5 /HPF Epithelial cells, squamous, ur 11-20 (A) 0 - 5 /HPF Bacteria, ur 2+ (A) Hyaline casts, ur 1-5 0 - 10 /LPF Discharge Disposition: Discharge to home or self care Full Code Discharge Instructions: Activity Instructions Discharge activity: Resume normal activity Diet Instructions Adult Discharge Diet Diet Type: Return to previous diet Other Instructions Special Instructions Discharge Medications: Your medication list START taking these medications amLODIPine 10 mg tablet Commonly known as: NORVASC Take 1 tablet (10 mg total) by mouth daily. cephalexin 500 mg capsule Commonly known as: KEFLEX Take 1 capsule (500 mg total) by mouth 2 (two) times a day for 5 days. topiramate 25 mg tablet Commonly known as: TOPAMAX Take 2 tablets (50 mg total) by mouth 2 (two) times a day. CONTINUE taking these medications traMADol 50 mg tablet Commonly known as: ULTRAM Take 1 tablet (50 mg total) by mouth every 6 (six) hours as needed for pain. STOP taking these medications sulfamethoxazole-trimethoprim 800-160 mg per tablet Commonly known as: BACTRIM,SEPTRA Outpatient Follow-Up: No future appointments. Follow-up with primary care physician in 1 week Follow-up with Dr. Gonzalez in 1 week Time Spent on Discharge: 35 mins documented in this encounter Discharge Instructions * Discharge Instr - Other Orders* Raya Rodas RN - 08/02/2018 3:22 PM CDT Continue home diet as before admission to the hospital Increase activity as tolerated If you have any questions or concerns, please do not hesitate to call [phone] * Attachments The following attachments cannot be sent through Care Everywhere. * Hypertension (Discharge Care) (Sammarinese) * Heart Healthy Diet (Discharge Care) (Sammarinese) * Amlodipine (By mouth) (Sammarinese) * Topiramate (By mouth) (Sammarinese) * Cephalexin (By mouth) (Sammarinese) documented in this encounter Medications at Time of Discharge amLODIPine (NORVASC) 10 mg tablet Take 1 tablet (10 mg total) by mouth daily. 30 tablet 08/03/2018 cephalexin (KEFLEX) 500 mg capsuleIndication s:Urinary Tract/Genitourina ry Infection Take 1 capsule (500 mg total) by mouth 2 (two) times a day for 5 days. 10 capsule 08/02/2018 08/07/2018 topiramate (TOPAMAX) 25 mg tablet Take 2 [...] Refills Last Filled Start Date End Date cephalexin (KEFLEX) 500 mg capsuleIndications :Urinary Tract/Genitourinar y Infection Take 1 capsule (500 mg total) by mouth 2 (two) times a day for 5 days. 10 capsule 08/02/2018 8 topiramate (TOPAMAX) 25 mg tablet Take 2 tablets (50 mg total) by mouth 2 (two) times a day. 120 tablet 08/02/2018 1 amLODIPine (NORVASC) 10 mg tablet Take 1 tablet (10 mg total) by mouth daily. 30 tablet 08/03/2018 documented in this encounter Discharge Disposition Disposition Code Departure Means Destination Discharge to home or self care documented in this encounter Progress Notes * Mee See NP - 08/02/2018 2:06 PM CDT Neurology Progress Note SUBJECTIVE Lorena Deshpande is a 27 y.o. female with chief complaint of headache. Interval History: Her headache is still not well controlled. On tramadol, toradol, depakote, and dilaudid. Review of Systems Constitutional: Denies fever, chills, or fatigue. Reports headache. HEENT: Denies vision change, hearing, or sore throat Respiratory: Denies SOB, wheezing, or cough Cardiovascular: Denies chest pain, palpitation, or cyanosis GI: Denies abdominal pain, constipation, or diarrhea : Denies dysuria, polyuria, or hematuria Integumentary: Denies ulcer, rash, or wound Psych: Denies depression, anxiety, or suicidal thought Hemo/Lymph: Denies bleeding, bruising, or petechiae Metabolic/Endocrine: Denies cold intolerance, heat intolerance, or generalized weakness Allergies Allergen Reactions ??? Prochlorperazine Anaphylaxis Current Facility-Administered Medications Medication Dose Route Frequency Provider Last Rate Last Dose ??? acetaminophen (TYLENOL) tablet 650 mg 650 mg oral Q4H PRN Keeley Ramirez MD 650 mg at 08/02/18 0628 ??? amLODIPine (NORVASC) tablet 10 mg 10 mg oral Daily Berta Leija MD 10 mg at 08/02/18 1044 ??? aspirin chewable tablet 81 mg 81 mg oral Daily Grace Choudhury MD 81 mg at 08/02/18900 ??? enoxaparin (LOVENOX) syringe 40 mg 40 mg subcutaneous Daily-2100 Grace Choudhury MD 40 mg at 08/01/182033 ??? famotidine (PEPCID) tablet 20 mg 20 mg oral BID Adri Fletcher MD ??? HYDROmorphone (DILAUDID) injection 1 mg 1 mg intravenous QID PRN Adri Fletcher MD 1 mg at 08/02/18912 ??? ketorolac (TORADOL) injection 30 mg 30 mg intravenous Q6H PRN Dwaine Gonzalez MD 30 mg at 08/01/181948 ??? ondansetron ODT (ZOFRAN-ODT) disintegrating tablet 4 mg 4 mg oral Q6H PRN Keeley Ramirez MD Or ??? ondansetron (ZOFRAN) injection 4 mg 4 mg intravenous Q6H PRN Keeley Ramirez MD ??? sodium chloride 0.9% flush 0.5-20 mL 0.5-20 mL intra-catheter Q8H Adri Fletcher MD 10 mL at 08/02/18527 ??? sodium chloride 0.9% flush 0.5-20 mL 0.5-20 mL intra-catheter PRN Adri Fletcher MD ??? traMADol (ULTRAM) tablet 50 mg 50 mg oral QID PRN Berta Leija MD 50 mg at 08/02/18 1044 ??? valproate (DEPACON,DEPAKENE) 500 mg in sodium chloride 0.9% 50 mL IVPB 500 mg intravenous Q12H DANDY Dwaine Gonzalez MD 55 mL/hr at 08/02/18 0900 500 mg at 08/02/18 0900 OBJECTIVE Vitals BP 143/82 Pulse 76 Temp 36.6 ??C (97.9 ??F) (Temporal) Resp 16 Ht 170.2 cm (5' 7 ) Wt 85.8 kg (189 lb 2.5 oz) LMP 07/25/2018 SpO2 100% BMI 29.63 kg/m?? Intake/Output Summary (Last 24 hours) at 08/02/18 1406 Last data filed at 08/02/18 0830 Gross per 24 hour Intake 800 ml Output 0 ml Net 800 ml Physical Exam Constitutional/General: well-developed, well-nourished, NAD HEENT: atraumatic, normocephalic, no discharge from mouth/ears Neck: atraumatic, no deformity. supple. Cardiovascular: regular S1S2 rhythm, no rubs/gallops, no murmurs Respiratory: regular, unlabored, CTA bilaterally. Abdominal: soft, nontender, normoactive BS Musculoskeletal: no atrophy, tenderness, abnormal movement Extremities: no edema, cyanosis or deformities Skin: warm, no rashes, no wound Psychiatric: Normal mood and affect. Neurological: 1) MS: alert, oriented x3, clear/fluent speech, comprehension intact, follow commands 2) CN: PERRLA, EOMI w/o nystagmus, visual field normal, facial sensation symmetrical No facial drooping, tongue at midline 3) Motor: muscle bulk/tone normal, strength 5/5 in BUE and BLE equally No pronator drift, DTRs 2-3 + symmetrically equal , no abnormal movement 4) Sensory: Intact to light touch symmetrically 5) Coordination: finger to nose normal 6) Gait: not assessed Lab/Radiology/Diagnostic Review: Recent Labs Lab Units 07/30/182038 WHITE BLOOD CELLS K/cumm 9.7 HEMOGLOBIN g/dL 12.6 HEMATOCRIT % 39.1 PLATELETS K/cumm 282 Recent Labs Lab Units 08/02/18 0504 07/31/18 1036 07/30/182038 SODIUM mmol/L 134* < > 139 139 POTASSIUM PLASMA mmol/L 3.9 < > 3.4 3.5 CHLORIDE mmol/L -- -- 102 100 CO2 mmol/L -- -- 25 29 ANIONGAP mmol/L -- -- 12 10 GLUCOSE mg/dL -- -- 120 95 BUN SERUM mg/dL -- -- 8 9 CREATININE mg/dL -- -- 0.79 0.86 CALCIUM mg/dL -- -- 8.6 9.1 ALBUMIN g/dL -- -- -- 4.2 ALK PHOS Units/L -- -- -- 79 ALT Units/L -- -- -- 9 AST Units/L -- -- -- 15 BILIRUBIN TOTAL mg/dL -- -- -- 0.2 < > = values in this interval not displayed. -labs notable for Na 134. I personally reviewed the above labs, images, and tests. ASSESSMENT/ PLAN 1. Headache. Most likely hypertensive crisis related. She is on depakote, tylenol, toradol and tramadol, dilaudid but still not controlling her headache. Continue the current regimen except dilaudid as it may cause rebound headache. She does have hx of migraine headache but the event is about once every month. She could start topiramate 25mg BID for 7days then increase to 50mg BID. Continue to observe while she is in the hospital. 2. Hypertension crisis. BP is better controlled to 140s. Continue to optimize. On amlodipine. Plan of care discussed with the nurse. Will follow up again. * Violet Mccracken [facility] - 08/02/2018 11:21 AM CDT This medication, famotidine, was changed from IV route to oral route per protocol. * Adri Fletcher MD - 08/01/2018 2:20 PM CDT Daily Progress Chief Complaint Patient presents with ??? Hypertension Subjective Patient complains of headache, blood pressure is better No nausea no vomiting Objective Vitals: 24hr Min/Max: Temp Min: 36 ??C (96.8 ??F) Max: 36.8 ??C (98.3 ??F) Pulse Min: 79 Max: 103 BP Min: 110/74 Max: 146/100 Resp Min: 13 Max: 22 SpO2 Min: 97 % Max: 100 % Most Recent : Vitals: 08/01/18 1417 BP: 122/79 Pulse: Resp: 16 Temp: 36.2 ??C (97.2 ??F) SpO2: 100% I/O last 2 completed shifts: In: 1063 [P.O.:600; I.V.:463] Out: 2650 [Urine:2650] I/O this shift: In: 480 [P.O.:480] Out: 500 [Urine:500] Physical Exam: General appearance: awake and alert Head and ENT : no pallor or icterus Lungs: clear to auscultation bilaterally Heart: S1, S2 [place] Abdomen: soft, non-tender; bowel sounds normal; Extremities: no edema, redness or tenderness in the calves Neurologic: Alert and oriented X 3, Psych : pleasant and cooperative Current Facility-Administered Medications: ??? acetaminophen (TYLENOL) tablet 650 mg, 650 mg, oral, Q4H PRN, 650 mg at 07/31/181743 ??? amLODIPine (NORVASC) tablet 10 mg, 10 mg, oral, Daily, 10 mg at 08/01/18916 ??? aspirin chewable tablet 81 mg, 81 mg, oral, Daily, 81 mg at 08/01/18916 ??? enoxaparin (LOVENOX) syringe 40 mg, 40 mg, subcutaneous, Daily-2100, 40 mg at 07/31/182121 ??? famotidine (PEPCID) injection 20 mg, 20 mg, intravenous, Q12H DANDY, 20 mg at 08/01/18917 ??? ondansetron ODT (ZOFRAN-ODT) disintegrating tablet 4 mg, 4 mg, oral, Q6H PRN OR ondansetron(ZOFRAN) injection 4 mg, 4 mg, intravenous, Q6H PRN ??? traMADol (ULTRAM) tablet 50 mg, 50 mg, oral, QID PRN, 50 mg at 08/01/18 0440 Lab/Radiology/Diagnostic Review: Laboratory review: Lab results in the last 24 hours: Recent Results (from the past 24 hour(s)) Lipid panel Collection Time: 08/01/18 4:00 AM Result Value Ref Range Cholesterol 154 30 - 199 mg/dL Triglycerides 80 <=149 mg/dL HDL 44 >=40 mg/dL LDL, calculated 94 <=129 mg/dL Non-HDL Cholesterol 110 mg/dL Chol/HDL ratio 3 Sodium level Collection Time: 08/01/18 4:03 AM Result Value Ref Range Sodium 138 135 - 145 mmol/L Phosphorus Collection Time: 08/01/18 4:03 AM Result Value Ref Range Phosphorus, pl 4.1 2.3 - 4.5 mg/dL Potassium Collection Time: 08/01/18 4:03 AM Result Value Ref Range Potassium, pl 3.4 3.3 - 4.9 mmol/L Magnesium Collection Time: 08/01/18 4:03 AM Result Value Ref Range Magnesium 2.2 1.6 - 2.4 mg/dL Ct Head Wo Contrast Result Date: 07/31/[address] HEAD WITHOUT CONTRAST. Electronically signed by: Carmelo Clay M.D. Patient Active Problem List Diagnosis ??? Hypertensive emergency ASSESSMENT/PLAN 1. Hypertension : Blood pressure is controlled on Norvasc. Will transfer patient to medical fluids and monitor her closely today 2. Headache : CT head is negative for any acute intracranial process. P.r.n. pain medications 3. History of UTI : Will repeat UA 4. Hypokalemia : replaced 5. Overweight : Counseled the patient about lifestyle modification * Brandi Painting RN - 08/01/2018 2:01 PM CDT Transferred to [facility] per wheelchair. * Rocío Tsang, [facility] - 07/31/2018 8:41 PM CDT An order to initiate electrolyte repletion by pharmacy has been received from Dr. Choudhury. IV (or PO repletion for potassium or magnesium, when tolerating oral) will be ordered by the pharmacist when levels fall below the desired range as follows: If potassium level is greater than 2.8 and less than 3.3, give 40mEq potassium chloride IVPB, or oral (per NG tube, when applicable). If potassium level is 2.8 or less, or greater than 6, call physician for orders If magnesium level is 1.0 - 1.5 and patient can take oral medications, administer magnesium oxide 400 mg TID x 3 doses. If magnesium level is <1.0, or 1.0 -1.5 and patient is NPO, administer 2 grams magnesium sulfateIVPB over 2 hours. If phosphorus level is 2.2 or less, and potassium and sodium are in normal range, give sodium phosphate 30 millimols IVPB. ?? If phosphorous level is 2.2 or less, and potassium replacement is also needed, give potassium phosphate 30 millimols IVPB. ?? If phosphorous level is 2.2 or less, and potassium is in normal range, and sodium is 145 or greater, give potassium phosphate 20 millimols IVPB. Monitoring Guidelines: TPN Patients: Renal panel daily x3 days, then every other day. ICU patients: Electrolyte levels (Potassium, magnesium, sodium and phosphorus)daily. All other patients: Electrolyte levels daily x 3 days. -If repletion is needed in the first 3 days, continue daily labs. -If repletion has not been needed, change labs to every 72 hours documented in this encounter H&P Notes * Grace Choudhury MD - 07/31/2018 8:23 PM CDT History and Physical Date of Service: 07/31/2018 Primary Care Physician: Shante Thomas MD [phone] SUBJECTIVE: Patient is a 27 y.o. female Presents to the ED with a chief complaint of hypertension . HPI: 27-year-old female with no significant past medical history presents to the emergency department with complains of feeling weird with tingling sensation in all extremities that started today morning while at work place. Patient was seen in the emergency department yesterday, was diagnosed with the UTI, started on oral Bactrim and was sent home with oral antibiotics. Patient states that had elevated blood pressure yesterday as well. While in the ED was treated with some IV medications, blood pressure improved and she was sent home. She does not have any personal history of hypertension however family history positive for hypertension. She does not take any medications on a regular basis. She checked her blood pressures at work which was elevated above 200 ambulance was called patient was transferred to the emergency department for further evaluation and treatment. In the ED patient was treated with IV hydralazine, was started on nicardipine drip and was referredfor admission to the ICU. Patient currently complains of headache denies any chest pain, shortness of breath, nausea or vomiting. Denies any fever or chills. Natalie no other complaints at this time Past Medical History: Diagnosis Date ??? HX OTHER MEDICAL Carpal tunnel syndrome Past Surgical History: Procedure Laterality Date ??? OTHER SURGICAL HISTORY Carpal tunnel syndrome: Vicodin and Tramadol Prescriptions Prior to Admission Medication Sig Dispense Refill Last Dose ??? sulfamethoxazole-trimethoprim (BACTRIM,SEPTRA) 800-160 mg per tablet Take 1 tablet by mouth 2 (two) times a day for 7 days. 14 tablet 0 ??? traMADol (ULTRAM) 50 mg tablet Take 1 tablet (50 mg total) by mouth every 6 (six) hours as needed for pain. 20 tablet 0 Allergies Allergen Reactions ??? Prochlorperazine Anaphylaxis Social History Substance Use Topics ??? Smoking status: Never Smoker ??? Smokeless tobacco: Never Used ??? Alcohol use Not on file Family History Problem Relation Age of Onset ??? Diabetes Other Family history of Diabetes mellitus; ??? Hypertension Other Family history of Hypertension; Review of Systems 1. Constitutional Denies: weight loss, weight gain, fever, chills, night sweats, fatigue 2. Eyes Denies: change in vision, double vision, eye pain, eye discharge, icterus, complains of photophobia 3. ENT Denies: change in hearing, ear pain, ear discharge, nose bleed, nasal congestion, sore throat 4. Respiratory Denies: SOB, wheezing, cough, sputum, hemoptysis 5. CV Denies: chest pain, palpitations, syncope, edema, dyspnea 6. GI Denies: abdominal pain, decreased appetite, nausea, vomiting, change in bowel habitus, diarrhea, vomiting, constipation, melena, BRBPR 7. Denies: dysuria, frequency, hematuria, nocturia, urgency 8. Metabolic Denies: cold intolerance, heat intolerance, polyphagia, polydipsia 9. Neurologic Complains of: headache, denies dizziness, seizure, change in mental status, focal weakness, focal numbness, problem planes of tingling in all extremities no weakness 10. Musculoskeletal Denies: myalgia, joint pain, joint redness, joint swelling, extremity pain 11. Hematologic Denies: bleeding, bruising, hematoma, lymphadenopathy, icterus OBJECTIVE: Vitals: Arrival Vitals Temp 07/31/18 1012 36.7 ??C (98 ??F) Pulse 07/31/18 1012 90 Resp 07/31/18 1012 18 BP 07/31/18 1012 (!) 191/128 SpO2 07/31/18 1012 99 % Temp src 07/31/18 1012 Oral Heart Rate Source 07/31/18 1510 Monitor Patient Position 07/31/18 1510 Lying BP Location 07/31/18 1510 Right arm FiO2 (%) -- Most Recent : Vitals: 07/31/18 1800 07/31/18 1840 07/31/18 1900 07/31/181999 BP: 120/81 126/96 126/86 BP Location: Right arm Patient Position: Lying Pulse: 94 97 98 97 Resp: 14 14 15 22 Temp: 36.8 ??C (98.2 ??F) TempSrc: Temporal SpO2: 99% 99% 99% 98% Weight: Height: I/O last 2 completed shifts: In: 713 [P.O.:300; I.V.:413] Out: 800 [Urine:800] I/O this shift: In: 200 [P.O.:200] Out: 500 [Urine:500] Physical Exam General: Awake, alert, oriented x4, in no acute distress Eyes: EOMI, DWAYNE, sclare non icteric Neck: supple, trachea midline, thyroid not enlarged, no gross carotid bruits appreciated Pharynx: No gross oral lesion, tongue midline, mucosa moist Lungs CTA Heart: [id number] Abd: +BS, Non Tender, Non distended, No gross hepatomegaly Lower Ext: No gross edema Neuro: Cranial nerves II-XII grossly intact. Moves all extremities equally, no gross sensory deficits Musculoskeletal: no gross joint erythema, edema, tenderness Genitourinary: No suprapubic or CVA tenderness Skin: No skin rashes, warm and dry to palpation Lab/Radiology/Diagnostic Review: Recent Results (from the past 24 hour(s)) CBC with auto differential Collection Time: 07/30/18 8:39 PM Result Value Ref Range WBC 9.7 3.8 - 9.9 K/cumm Hgb 12.6 11.9 - 15.5 g/dL Hct 39.1 35.6 - 45.5 % Plt 282 150 - 400 K/cumm MPV 9.5 9.1 - 12.3 fL RBC 4.29 3.90 - 5.20 M/cumm MCV 91.1 81.3 - 96.4 fL MCH 29.4 27.1 - 33.3 pg MCHC 32.2 (L) 32.3 - 35.7 g/dL RDW CV 11.8 11.1 - 14.9 % RDW SD 39.3 35.7 - 48.1 fL NRBC Abs 0.00 0.00 - 0.01 K/cumm Comprehensive metabolic panel Collection Time: 07/30/18 8:39 PM Result Value Ref Range Sodium 139 135 - 145 mmol/L Potassium, pl 3.5 3.3 - 4.9 mmol/L Chloride 100 97 - 110 mmol/L CO2 29 22 - 32 mmol/L Anion Gap 10 2 - 15 mmol/L BUN 9 8 - 25 mg/dL Creatinine 0.86 0.60 - 1.10 mg/dL Glucose 95 70 - 199 mg/dL Calcium 9.1 8.5 - 10.3 mg/dL Bilirubin, total 0.2 0.1 - 1.2 mg/dL Protein, pl 7.2 6.5 - 8.5 g/dL Albumin 4.2 3.5 - 5.0 g/dL Alk phos 79 40 - 130 Units/L ALT 9 7 - 45 Units/L AST 15 10 - 45 Units/L Urinalysis reflex to microscopic and culture Urine Collection Time: 07/30/18 8:39 PM Result Value Ref Range Color, ur Yellow Yellow Clarity, ur Cloudy (A) Clear Specific gravity, ur 1.023 1.010 - 1.025 pH, urine 6.5 Protein, ur ql 1+ (A) Negative Glucose, ur ql Negative Negative Ketones, ur Negative Negative Bilirubin, ur Negative Negative Blood, ur 3+ (A) Negative Urobilinogen, ur 1.0 mg/dL Nitrite, ur Negative Negative Leukocyte esterase, ur 2+ (A) Negative hCG, urine, qualitative Collection Time: 07/30/18 8:39 PM Result Value Ref Range HCG, ur Negative Negative Differential, auto Collection Time: 07/30/18 8:39 PM Result Value Ref Range Neutrophil absolute 5.5 1.7 - 6.5 K/cumm Immature granulocyte absolute 0.0 0.0 - 0.1 K/cumm Lymphocytes absolute 3.4 (H) 0.8 - 3.3 K/cumm Monocyte absolute 0.5 0.2 - 0.8 K/cumm Eosinophils absolute 0.2 0.0 - 0.5 K/cumm Basophils, abs 0.0 0.0 - 0.1 K/cumm Neutrophils 56.3 % Immature granulocytes 0.2 % Lymphocytes 35.4 % Monocytes 5.5 % Eosinophils 2.2 % Basophils 0.4 % Urinalysis, microscopic only Collection Time: 07/30/18 8:39 PM Result Value Ref Range WBC, ur 11-20 (A) 0 - 5 /HPF RBC, ur 6-10 (A) 0 - 5 /HPF Epithelial cells, squamous, ur 21-50 (A) 0 - 5 /HPF Bacteria, ur 2+ (A) Calcium oxalate crystals, ur 1+ (A) Hyaline casts, ur 11-20 (A) 0 - 10 /LPF eGFR Collection Time: 07/30/18 8:39 PM Result Value Ref Range GFR >60 mL/min/1.73 m2 Trichomonas antigen detection Vaginal Vaginal Collection Time: 07/30/18 11:06 PM Result Value Ref Range Report Final Report: Negative for Trichomonas antigen Basic metabolic panel Collection Time: 07/31/18 10:36 AM Result Value Ref Range Sodium 139 135 - 145 mmol/L Potassium, pl 3.4 3.3 - 4.9 mmol/L Chloride 102 97 - 110 mmol/L CO2 25 22 - 32 mmol/L Anion Gap 12 2 - 15 mmol/L BUN 8 8 - 25 mg/dL Creatinine 0.79 0.60 - 1.10 mg/dL Glucose 120 70 - 199 mg/dL Calcium 8.6 8.5 - 10.3 mg/dL Troponin T Collection Time: 07/31/18 10:36 AM Result Value Ref Range Troponin T <0.01 0.00 - 0.01 ng/mL TSH reflex to free T4 Collection Time: 07/31/18 10:36 AM Result Value Ref Range TSH 2.52 0.30 - 4.20 mcIUnit/mL eGFR Collection Time: 07/31/18 10:36 AM Result Value Ref Range GFR >60 mL/min/1.73 m2 Drug screen, urine Collection Time: 07/31/18 11:53 AM Result Value Ref Range Amphetamines, Class Negative Screen Negative Screen Barbiturates, Class Negative Screen Negative Screen Benzodiazepines Negative Screen Negative Screen Cannabinoids, Screen Negative Screen Negative Screen Cocaine metabolite Negative Screen Negative Screen Opiates, Class Negative Screen Negative Screen Phencyclidine, ur Negative Screen Negative Screen Ct Head Wo Contrast Result Date: 07/31/2018 Narrative: CT HEAD WO CONTRAST HISTORY: dizziness, headache, HTN. COMPARISON: 05/27/2012 TECHNIQUE:Sequential axial images of the brain were obtained without contrast. FINDINGS: There is no evidenceof intracranial hemorrhage, mass lesion or acute infarction. The ventricles, gyri, and sulci demonstrate normal size and configuration. Midline is normal. The extraaxial structures are unremarkable. Impression: NORMAL CT HEAD WITHOUT CONTRAST. Electronically signed by: Carmelo Clay M.D. EKG: Sinus rhythm, LVH, nonspecific ST T-wave changes. ASSESSMENT/PLAN: * Hypertensive emergency Assessment & Plan Patient presented to the emergency department noted [...] further assessment of left ventricular function if clinicallynecessary. Strict I&Os Will check lipid panel in a.m. Will start on aspirin GI and DVT prophylaxis in place Principal Problem: Hypertensive emergency Full Code ESTIMATED LENGTH OF STAY: Less than 2 midnights Grace Choudhury MD 07/31/2018 8:23 PM documented in this encounter Consult Notes * Dwaine Gonzalez MD - 08/01/2018 5:44 PM CDTAssociated Order(s): IP CONSULT TO NEUROLOGY Consult Subjective Patient is a 27 y.o. female with chief complaint of hypertension and headache. HPI: Patient was at work and had sudden onset of tingling sensation of both hands and lower extremity. She has pulsating sensation of head. She felt that she was going to pass out. She called 911. She started to have headache in the ambulance. The headache affected bilateral frontal and temporal region.There was no significant nausea or vomiting. She did have mild photophobia and sound phobia. In thepast, she has history of migraine headache. Normally she was having headache once every 1-2 months.This time, she was noticed to have hypertension as high as 197/130. I reviewed ER note: patient didnot take high blood pressure medicine. Past Medical History: Diagnosis Date ??? HX OTHER MEDICAL Carpal tunnel syndrome Past Surgical History: Procedure Laterality Date ??? OTHER SURGICAL HISTORY Carpal tunnel syndrome: Vicodin and Tramadol Allergies Allergen Reactions ??? Prochlorperazine Anaphylaxis Prescriptions Prior to Admission Medication Sig Dispense Refill Last Dose ??? sulfamethoxazole-trimethoprim (BACTRIM,SEPTRA) 800-160 mg per tablet Take 1 tablet by mouth 2 (two) times a day for 7 days. 14 tablet 0 ??? traMADol (ULTRAM) 50 mg tablet Take 1 tablet (50 mg total) by mouth every 6 (six) hours as needed for pain. 20 tablet 0 Family History Problem Relation Age of Onset ??? Diabetes Other Family history of Diabetes mellitus; ??? Hypertension Other Family history of Hypertension; Social History Social History Main Topics ??? Smoking status: Never Smoker ??? Smokeless tobacco: Never Used ??? Drug use: Unknown Social History ??? Marital status: Review of Systems: Constitutional: No weight loss/gain, Fatigue, excessive sweating, fever, chills HEENT: No headache/migraine, hearing loss,change in vision, cataracts Respiratory: No trouble breathing, coughing/wheezing, asthma, snoring Muscle skeletal: No joint pain, muscle pain, back pain, neck pain, limb pain Cardiovascular: No chest pain, palpitations, irregular heart beat, passing out, fainting Vascular: NoTingling, numbness, swelling, discoloration of the extremities Gastrointestinal: No nausea, vomiting, diarrhea, abdominal pain Neurologic: No tremors, weakness, numbness, changes in gait, changes in memory Genitourinary: No painful urination, difficulty urination, frequent urination, urinary incontinence, discoloration of urine Reproductive: No hot flash, changes in libido, sexual transmitted disease Metabolic//Endocrine: No sensitivity to heat/cold, abnormal sleep pattern, skin change No hot flash. Psychiatric: No anxiety, depression, mood swings Objective Vitals: 24hr Min/Max: Temp Min: 36 ??C (96.8 ??F) Max: 36.8 ??C (98.3 ??F) Pulse Min: 79 Max: 99 BP Min: 110/74 Max: 146/100 Resp Min: 13 Max: 22 SpO2 Min: 98 % Max: 100 % Most Recent: Vitals: 08/01/18 1417 BP: 122/79 Pulse: Resp: 16 Temp: 36.2 ??C (97.2 ??F) SpO2: 100% Physical Exam: Constitutional: well-developed, well-nourished and in [...] cyanosis or deformities Skin: no rashes or lesions. No discoloration. Psychiatric: normal mood and affect. Judgment and insight appear intact Mental status: alert, speech fluent, comprehension intact, follow command appropriately Cranial nerve: ROMA, corneal reflex [...] symmetrical. Gait: not assessed Lab/Radiology/Diagnostic Review: 1. 07/31/2018 CT of head without: No acute intracranial process. I reviewed the image. 2. 07/31/2018 EKG: Sinus rhythm. HR 86. 3. 07/31/2018: Urine drug screen negative. BMP normal. TSH normal. Assessment /Plan Principal Problem: Hypertensive emergency Impressions: This is a 27 years old patient with history of poorly controlled hypertension and headache. The headache is most likely related to the hypertension. Recommendations: 1. Toradol 30 mg q.6 hours p.r.n. for headache 2. Depacon 500 mg IV q.12 hours 3. Control hypertension Dwaine Gonzalez MD 08/01/2018 5:44 PM documented in this encounter ED Notes * Samia Ramon RN - 07/31/2018 10:10 AM CDT Pt to ED complaining of just not feeling right. Pt got to work and found her BP to be 160/120. Pt denies any SOB, CP or dizziness. BP elevated at this time. * Keeley Ramirez MD - 07/31/2018 10:10 AM CDT HPI Chief Complaint Patient presents with ??? Hypertension 10:02AM: Patient is a 27 year old female nonsmoker presenting to the ED via EMS c/o a tingling sensation and feeling weird that began this morning. She states she has tingling in her hands bilaterally, face and top of head. Patient notes that her blood pressure was 160/120 at home prior to presenting to the ED, but she does not take medication for HTN. Patient endorses mild photophobia, but denies headache, chest pain, heart palpitations, SOB or difficulty ambulating. Patient was in the ED last night for a UTI and was prescribed Tramadol, which she states she took this morning. Patient has taken Tramadol in the past with no negative side effects. Patient has a family hx of HTN, and she denies a hx of thyroid problems. Patient is allergic to Compazine Per chart review, patient presented to [facility] on 07/30/2018 for abdominal pain. Patient was diagnosed with a UTI and vaginal bleeding. She was prescribed Tramadol and sulfamethoxazole/trimethoprim. Patient History There are no active problems to display for this patient. Past Medical History: Diagnosis Date ??? HX OTHER MEDICAL Carpal tunnel syndrome Past Surgical History: Procedure Laterality Date ??? OTHER SURGICAL HISTORY Carpal tunnel syndrome: Vicodin and Tramadol Family History Problem Relation Age of Onset ??? Diabetes Other Family history of Diabetes mellitus; ??? Hypertension Other Family history of Hypertension; Social History Substance Use Topics ??? Smoking status: Never Smoker ??? Smokeless tobacco: Never Used ??? Alcohol use Not on file Social History Social History Narrative ??? No narrative on file Review of Systems Review of Systems Constitutional: Negative for chills and fever. Feels weird HENT: Negative for ear pain and sore throat. Eyes: Positive for photophobia. Negative for pain and visual disturbance. Respiratory: Negative for cough and shortness of breath. Cardiovascular: Negative for chest pain and palpitations. High blood pressure Gastrointestinal: Negative for abdominal pain and vomiting. Genitourinary: Negative for dysuria and hematuria. Musculoskeletal: Negative for arthralgias and back pain. Skin: Negative for color change and rash. Neurological: Negative for seizures, syncope and headaches. Tingling in hands bilaterally, face, and top of head All other systems reviewed and are negative. Physical Exam ED Triage Vitals Temp Pulse Resp BP SpO2 07/31/18 1012 07/31/18 1012 07/31/18 1012 07/31/18 1012 07/31/18 1012 36.7 ??C (98 ??F) 90 18 (!) 191/128 99 % Temp src Heart Rate Source Patient Position BP Location FiO2 (%) 07/31/18 1012 07/31/18 1510 07/31/18 1510 07/31/18 1510 -- Oral Monitor Lying Right arm Physical Exam Constitutional: She is oriented [...] Normal range of motion. She exhibits no edema (no leg edema), tenderness or deformity. Neurological: She is alert and oriented to person, place, and time. No cranial nerve deficit or sensory deficit. Skin: Skin is warm and dry. Capillary refill takes less than 2 seconds. No rash noted. No erythema.No pallor. Nursing note and vitals reviewed. MDM MDM Number of Diagnoses or Management Options Amount and/or Complexity of Data Reviewed Clinical lab tests: ordered and reviewed Tests in the radiology section of CPT??: ordered and reviewed Vitals: 07/31/181999 BP: 126/86 Pulse: 97 Resp: 22 Temp: 36.8 ??C (98.2 ??F) SpO2: 98% Labs Reviewed MRSA CULTURE MRSA CULTURE BASIC METABOLIC PANEL Result Value Sodium 139 Potassium, pl 3.4 Chloride 102 CO2 25 Anion Gap 12 BUN 8 Creatinine 0.79 Glucose 120 Calcium 8.6 Narrative: TROPONIN T Troponin T <0.01 Narrative: TSH REFLEX TO FREE T4 TSH 2.52 Narrative: DRUG SCREEN, URINE Amphetamines, Class Negative Screen Barbiturates, Class Negative Screen Benzodiazepines Negative Screen Cannabinoids, Screen Negative Screen Cocaine metabolite Negative Screen Opiates, Class Negative Screen Phencyclidine, ur Negative Screen Narrative: EGFR GFR >60 Narrative: SODIUM LEVEL PHOSPHORUS POTASSIUM LEVEL MAGNESIUM CT Head WO Contrast Final Result NORMAL CT HEAD WITHOUT CONTRAST. Electronically signed by: Carmelo Clay M.D. Procedures ED Course as of Jul 31 2119 Time: 07/31 1011 Comment: Pt had CBC, CMP, UA, UPREG done last night Upreg was neg, normal CBC and CMP Will repeat bmp, get trop, tsh, do ekg, head CT Reassess bp By: Keeley Ramirez MD Time: 07/31 1016 Comment: Pt started feeling weird and tingly all over I re-evaluated her, still neuro intact, blood pressure is quite elevated 191/120 She already received labetalol 10 mg iv en route, ordered hydralazine 10 mg iv and hctz 25 mg po Pt reports also feeling anxious By: Keeley Ramirez MD Time: 07/31 1034 Comment: Pre-hypertension/Hypertension: The patient has been informed that they may have pre-hypertension or Hypertension based on a blood pressure reading in the Emergency Department. I recommend that the patient call the primary care provider listed on their discharge instructions or a physician of their choice this week to arrange follow up for further evaluation of possible pre- hypertension or Hypertension. By: Shana Reese Time: 07/31 1056 Comment: CT head unremarkable, blood pressure continues to improve after medication but is still elevated By: Keeley Ramirez MD Time: 07/31 1102 Comment: Patient rechecked. Patient informs that she has been taking [employer] energy pills recently, although not in the past 2 days. Patient advised to stop taking these. Patient states she still feels weird and has some anxiety. She notes she has taken Tramadol in the past for carpal tunnel. By: Shana Reese Time: 07/31 1406 Comment: Patient rechecked. Patient is now complaining of a headache. By: Shana Reese Time: 07/31 1407 Comment: Discussed patient with Dr. White, hospitalist, who accepts patient for admission to theICU. By: Shana Reese Time: 07/31 1410 Comment: Discussed with patient the plan for admission. Patient understands and agrees. All questions have been answered at this time. By: Shana Reese Hypertensive emergency This note is prepared by Shana Reese acting as a scribe for Keeley Ramirez MD. Signed by Ever Fisher, 10:51AM 07/31/2018 I, Keeley Ramirez MD, have personally performed the services described in the documentation, reviewed the documentation, as recorded by the scribe in my presence, and it accurately and completely records my words and actions. Keeley Ramirez MD 07/31/182119 * Ela Trujillo RN - 07/31/2018 10:08 AM CDT Bed: ED10 Expected date: 07/31/18 Expected time: 9:42 AM Means of arrival: Ambulance Comments: [facility] [id number] Ela Trujillo RN 07/31/18 1008 documented in this encounter Miscellaneous Notes * Plan of Care - Oscar Ta RN - 08/02/2018 2:47 PM CDT Goals: Clinical Goals for the Shift: Pt.'s headache will be relieved, and all vital signs will be stable. Summary: Medicated for headache couple times this shift. VSS. Up and about in room. * Plan of Care - Aida Langston RN - 08/02/2018 1:02 PM CDT DC plan discussed with patient. Goal at dc is to return home with and kids. CARDONA letter signed and placed in chart. OBS booklet given. Barrier to dc is resolution of hypertensive emergency. No need for dc anticipated. * Plan of Care - Trupti Stallings RN - 08/02/2018 3:36 AM CDT Lack of Knowledge: ??? Ability to develop a pain control plan will improve Not Progressing Medication: ??? Satisfaction with pain management regimen will improve Not Progressing Sensory: ??? Ability to identify factors that increase the pain will improve Not Progressing ??? Pain level will decrease Not Progressing Cardiac: ??? Ability to maintain an adequate cardiac output will improve Progressing Health Behavior: ??? Understanding of discharge needs will improve Progressing Lack of Knowledge: ??? Ability to identify pain intensity on a pain scale and rate it consistently will improve Progressing ??? Ability to notify healthcare provider of pain before it becomes unmanageable or unbearable willimprove Progressing Lack of Knowledge: ??? Knowledge of disease or condition will improve Progressing Goals: Clinical Goals for the Shift: Pt.'s headache will be relieved, and all vital signs will be stable. Summary: Pt. continues to have a headache which she describes as throbbing and usually rates between a 5 and 8. on the pain scale. She states that she receives temporary relief from PRN pain medications and then the headache returns. A&Ox4. Independent in the room. * Plan of Care - Oscar Ta RN - 08/01/2018 6:11 PM CDT Goals: Clinical Goals for the Shift: Stable vital signs. Adequate pain control. Summary: Transferred from ICU per w/c in stable condition around 1350.VSS Medicated couple times for headache. Dr. Gonzalez here to see pt. Will start on Depakone iv. * Plan of Care - Brandi Painting RN - 08/01/2018 1:22 PM CDT Goals: Clinical Goals for the Shift: Stable vital signs. Adequate pain control. Summary: Vital signs stable. Has headache at times. Will transfer to medical floor with telemetry. * Plan of Care - Kaye Grant RN - 08/01/2018 3:20 AM CDT Lack of Knowledge: ??? Ability to develop a pain control plan will improve Not Progressing Medication: ??? Satisfaction with pain management regimen will improve Not Progressing As evidenced by frequent requests for PRN pain medications. Cardiac: ??? Ability to maintain an adequate cardiac output will improve Progressing Health Behavior: ??? Understanding of discharge needs will improve Progressing Lack of Knowledge: ??? Ability to identify pain intensity on a pain scale and rate it consistently will improve Progressing ??? Ability to notify healthcare provider of pain before it becomes unmanageable or unbearable willimprove Progressing Lack of Knowledge: ??? Knowledge of disease or condition will improve Progressing Sensory: ??? Ability to identify factors that increase the pain will improve Progressing ??? Pain level will decrease Progressing As evidenced by progress made in goals stated above. Goals: Clinical Goals for the Shift: Stable vital signs; improved blood pressure; free of pain; promote comfort Summary: Patient's vital signs have remained stable. Nicardipine drip has not been restarted. Patient received amlodipine for SBP >130 at 2200. SBP stable since administration. Complains of headache 07/07 after receiving Tylenol and Tramadol, but pain is relieved with prescribed PRN morphine. * Assessment & Plan Note - Grace Choudhury MD - 08/01/2018 3:09 AM CDT Associated Problem(s): Hypertensive emergency (Resolved 10/16/2018) Patient presented to the emergency department noted [...] further assessment of left ventricular function if clinicallynecessary. Strict I&Os Will check lipid panel in a.m. Will start on aspirin * Plan of Care - Brandi Painting RN - 07/31/2018 4:09 PM CDT Goals: Summary:Admitted to ICU 8 for HTN. Improved. Wean Nicardipine.* * ED Procedure Note - Keeley Ramirez MD - 07/31/2018 10:33 AM CDT Associated Order(s): ECG 12-LEAD Procedure ECG 12 lead Date/Time: 07/31/2018 10:24 AM Performed by: KEELEY RAMIREZ Authorized by: KEELEY RAMIREZ Rate: ECG rate: 86 ECG rate assessment: normal Rhythm: Rhythm: sinus rhythm Ectopy: Ectopy: none QRS: QRS axis: Normal ST segments: ST segments: Non-specific Previous ECG: Previous ECG: Compared to current Date of previous EC10/29/2015 Similarity: No change Keeley Ramirez MD 07/31/18 1034 documented in this encounter Plan of Treatment Not on file documented as of this encounter Procedures Procedure Name Priority Date/Time Associated Diagnosis Comments URINALYSIS AND REFLEX TO MICROSCOPIC AND CULTURE Routine 08/02/2018 6:18 AM CDT URINALYSIS, MICROSCOPIC ONLY Routine 08/02/2018 6:18 AM CDT URINE CULTURE Routine 08/02/2018 6:18 AM CDT SODIUM LEVEL Routine 08/02/2018 5:04 AM CDT POTASSIUM LEVEL Routine 08/02/2018 5:04 AM CDT PHOSPHORUS Routine 08/02/2018 5:04 AM CDT MAGNESIUM Routine 08/02/2018 5:04 AM CDT SODIUM LEVEL Routine 08/01/2018 4:03 AM CDT POTASSIUM LEVEL Routine 08/01/2018 4:03 AM CDT PHOSPHORUS Routine 08/01/2018 4:03 AM CDT MAGNESIUM Routine 08/01/2018 4:03 AM CDT LIPID PANEL Routine 08/01/2018 4:00 AM CDT INFECTION PREVENTION MRSA ONLY (STAPHYLOCOCCUS AUREUS) CULTURE Routine 07/31/2018 3:52 PM CDT DRUGS OF ABUSE SCREEN, URINE WITHOUT CONFIRMATION STAT 07/31/2018 11:[address] HEAD WO CONTRAST ED 07/31/2018 1 0:48 AM CDT EGFR STAT 07/31/2018 10:36 AM CDT THYROID FUNCTION CASCADE STAT 07/31/2018 10:36 AM CDT TROPONIN T STAT 07/31/2018 10:36 AM CDT BASIC METABOLIC PANEL STAT 07/31/2018 10:36 AM CDT ECG 12-LEAD STAT 07/31/2018 10:24 AM CDT documented in this encounter Results * Urine culture (08/02/2018 6:18 AM CDT) Report Final Report: Less than 100,000 colonies/mL (clinically insignificant growth based on current clinical standards) SASHA MORELAND) Comment:Testing performed by : [facility], [address] [place] [address] Organism (CLINICALLY INSIGNIFICANT GROWTH SASHA BRYAN (MICHAEL) Urine 08/02/2018 6:18 AM CDT 08/02/2018 11:46 AM CDT Narrative SASHA BRYAN (MICHAEL) - 08/03/2018 6:52 AM CDT Urine culture reflexed based upon urinalysis results. Testing performed by [facility] ([phone]) us Adri Fletcher MD LAB MICROBIOLOGY - GENER AL ORDERABLES Final Result SASHA MORELAND) [address] [facility] [place] [address] * (ABNORMAL) Urinalysis, microscopic only (08/02/2018 6:18 AM CDT) WBC, ur 11-20(A) 0 - 5 /HPF SASHA BRYAN (MICHAEL) RBC, ur 0-5 0 - 5 /HPF [facility] (MIC[place]EL) Epithelial cells, squamous, ur 11-20(A) 0 - 5 /HPF [facility] (MICHAEL) Comment:Suggestive of contam ination. Consider recollection by clean catch. Bacteria, ur 2+(A) [facility] (MICHAEL) Hyaline casts, ur 1-5 0 - 10 /LPF [facility] (MICHAEL) Urine 08/02/2018 6:18 AM CDT 08/02/2018 6:26 AM CDT Narrative [facility] (MICHAEL) - 08/02/2018 6:43 AM CDT us Adri Fletcher MD LAB URINE ORDERABLES Fin al Result [facility] (MICHAEL) [address] [facility] Department [place] [address] * (ABNORMAL) Urinalysis reflex to microscopic and culture Urine (08/02/2018 6:18 AM CDT) Color, ur Yellow Yellow [facility] ([place]EL) Clarity, ur Cloudy(A) Clear [facility] (MIC[place]EL) Specific gravity, ur 1.024 1.010 - 1.025 [facility] ([place]EL) pH, urine 6.0 [facility] ([place]) Protein, ur ql Negative Negative [facility] ([place]) Glucose, ur ql Negative Negative [facility] ([place]EL) Ketones, ur Trace Negative [facility] (MICHAEL) Bilirubin, ur Negative Negative [facility] ([place]EL) Blood, ur Negative Negative [facility] ([place]) Urobilinogen, ur 0.2 mg/dL [facility] ([place]) Nitrite, ur Negative Negative [facility] ([place]EL) Leukocyte esterase, ur 1+(A) Negative [facility] ([place]EL) Urine 08/02/2018 6:18 AM CDT 08/02/2018 6:26 AM CDT Narrative [facility] ([place]EL) - 08/02/2018 6:43 AM CDT ?? Urine pH is affected by diet, medications, systemic acid-base disturbances, and renal tubular function. ??pH may affect urinary stone formation. ??For example, urine pH below 6.0 may help reduce the tendency for calcium phosphate stones and pH greater than 6.0 may reduce the tendency for uric acid stone formation. Source: [facility] [employer]. Last revised 12-08-2017 Urine pH is affected by diet, medications, systemic acid-base disturbances, and renal tubular function. ??pH may affect urinary stone formation. ??For example, urine pH below 6.0 may help reduce the tendency for calcium phosphate stones and pH greater than 6.0 may reduce the tendency for uric acid stone formation. Source: [facility] [employer]. Last revised 12-08-2017 Adri Fletcher MD LAB MICROBIOLOGY - GENER AL ORDERABLES Final Result Performing Organization Address [facility] Co de Phone Number SASHA BRYAN ([place]) [address] [place] [address] [place] [address] * Magnesium (08/02/2018 5:04 AM CDT) Magnesium 2.0 1.6 - 2.4 mg/dL SASHA RANDI ([place]) Blood specimen (specimen) 08/02/2018 5:04 AM CDT 08/02/2018 5:48 AM CDT Narrative SASHA RANDI ([place]) - 08/02/2018 6:22 AM CDT Adri Fletcher MD LAB BLOOD ORDERABLES Fin al Result Performing Organization Address City/State/[facility] Co de Phone Number SASHA BRYAN ([place]) [address] [place] [address] [place] [address] * Potassium (08/02/2018 5:04 AM CDT) Potassium, pl 3.9 3.3 - 4.9 mmol/L SASHA RANDI ([place]) Blood specimen (specimen) 08/02/2018 5:04 AM CDT 08/02/2018 5:48 AM CDT Narrative [facility] (MICHAEL) - 08/02/2018 6:22 AM CDT Adri Fletcher MD LAB BLOOD ORDERABLES Fin al Result Performing Organization Address City/[facility] Co de Phone Number SASHA NORMANN) [address] [facility] [place] [address] * Phosphorus (08/02/2018 5:04 AM CDT) Phosphorus, pl 3.0 2.3 - 4.5 mg/dL SASHA BRYAN ([place]) Blood specimen (specimen) 08/02/2018 5:04 AM CDT 08/02/2018 5:48 AM CDT Narrative SASHA BRYAN ([place]) - 08/02/2018 6:22 AM CDT Adri Fletcher MD LAB BLOOD ORDERABLES Fin al Result Performing Organization Address [facility] CENTER Co de Phone Number SASHA BRYAN ([place]) 1 [facility] [place] [address] * (ABNORMAL) Sodium level (08/02/2018 5:04 AM CDT) Sodium 134(L) 135 - 145 mmol/L SASHA BRYAN ([place]HAEL) Blood specimen (specimen) 08/02/2018 5:04 AM CDT 08/02/2018 5:48 AM CDT Narrative SASHA BRYAN ([place]) - 08/02/2018 6:22 AM CDT Adri Fletcher MD LAB BLOOD ORDERABLES Fin al Result Performing Organization Address City/[facility] Co de Phone Number SASHA BRYAN ([place]) 1 [facility] [place] [address] * Magnesium (08/01/2018 4:03 AM CDT) Magnesium 2.2 1.6 - 2.4 mg/dL SASHA BRYAN ([place]) Blood specimen (specimen) 08/01/2018 4:03 AM CDT 08/01/2018 5:10 AM CDT Narrative SASHA BRYAN ([place]) - 08/01/2018 5:44 AM CDT Adri Fletcher MD LAB BLOOD ORDERABLES Fin al Result SASHA BRYAN ([place]) 1 [facility] [place] [address] * Potassium (08/01/2018 4:03 AM CDT) Potassium, pl 3.4 3.3 - 4.9 mmol/L SASHA BRYAN ([place]) Blood specimen (specimen) 08/01/2018 4:03 AM CDT 08/01/2018 5:10 AM CDT Narrative ITALOPRINCESS BRYAN ([place]HA[place]) - 08/01/2018 5:44 AM CDT Adri Fletcher MD LAB BLOOD ORDERABLES Fin al Result Performing Organization Address [facility]/ZIP Co de Phone Number SASHA BRYAN ([place]) 1 [facility] [place] [address] * Phosphorus (08/01/2018 4:03 AM CDT) Phosphorus, pl 4.1 2.3 - 4.5 mg/dL SASHA BRYAN ([place]) Blood specimen (specimen) 08/01/2018 4:03 AM CDT 08/01/2018 5:10 AM CDT Narrative ITALOPRINCESS BRYAN ([place]) - 08/01/2018 5:44 AM CDT Adri Fletcher MD LAB BLOOD ORDERABLES Fin al Result SASHA BRYAN ([place]) 1 [facility] [place] [address] * Sodium level (08/01/2018 4:03 AM CDT) Sodium 138 135 - 145 mmol/L [facility] ([place]) Blood specimen (specimen) 08/01/2018 4:03 AM CDT 08/01/2018 5:10 AM CDT Narrative SASHA BRYAN ([place]) - 08/01/2018 5:44 AM CDT us Adri Fletcher MD LAB BLOOD ORDERABLES Fin al Result SASHA BRYAN ([place]) 1 [facility] [place] [address] * Lipid panel (08/01/2018 4:00 AM CDT) Cholesterol 154 30 - 199 mg/dL SASHA BRYAN ([place]) Comment: Interpretive Data Ages < or = [...] Data was last revised on 2018. Triglycerides 80 <=149 mg/dL [facility] ([place]) Comment: Interpretive Data Ages < or = [...] Data was last revised on 2018. HDL 44 >=40 mg/dL SASHA Castellanos ([place]) Comment: Interpretive Data Ages < or = [...] was last revised on 2018. LDL, calculated 94 <=129 mg/dL SASHA BRYAN ([place]) Comment: Interpretive Data Ages < or = [...] was last revised on 2018. Non-HDL Cholesterol 110 mg/dL SASHA BRYAN ([place]) Comment: Interpretive Data Ages < or = [...] was last revised on 2018. Chol/HDL ratio 3 EMILIA BRYAN ([place]) Blood specimen (specimen) 08/01/2018 4:00 AM CDT 08/01/2018 6:11 AM CDT Narrative SASHA BRYAN ([place]) - 08/01/2018 6:26 AM CDT Grace Choudhury MD LAB BLOOD ORDERABLES Final Re sult SASHA BRYAN ([place]) 1 [facility] Department of Laboratories [place], [place] [id number] * MRSA culture Nasal (07/31/2018 3:52 PM CDT) Report Final Report: Negative SASHA BRYAN ([place]) Comment:Testing performed by : [facility], [address] [facility], [place]., [address] Nasal 07/31/2018 3:52 PM CDT 07/31/2018 9:20 PM CDT Narrative SASHA BRYAN ([place]) - 08/01/2018 10:38 PM CDT Testing performed by [facility] ([phone]). Berta Leija MD LAB MICROBIOLOGY - GENERAL OR DERABLES Final Result SASHA MORELAND) 1 [facility] [place] [address] * Drug screen, urine (07/31/2018 11:53 AM CDT) Amphetamines, Class Negative Screen Negative Screen SASHA BRYAN ([place]) Comment: Interpretive Data Amphetamines cut off value 1000 ng/mL Current interpretive data was last revised on 2014. Barbiturates, Class Negative Screen Negative Screen SASHA BRYAN ([place]) Comment: Interpretive Data Barbiturates cut off value 200 ng/mL Current interpretive data was last revised on 2015. Benzodiazepines, ur Negative Screen Negative Screen SASHA BRYAN ([place]) Comment: Interpretive Data Benzodiazepines cut off value 200 ng/mL Current interpretive data was last revised on 2014. Cannabinoids, Screen Negative Screen Negative Screen SASHA BRYAN ([place]) Comment: Interpretive Data THC/Marijuana cut off value 50 ng/mL Current interpretive data was last revised on 2014. Cocaine metabolite Negative Screen Negative Screen SASHA BRYAN ([place]) Comment: Interpretive Data Cocaine cut off value 300 ng/mL Current interpretive data was last revised on 2014. Opiates, Class Negative Screen Negative Screen SASHA BRYAN ([place]) Comment: Interpretive Data Opiates cut off value 2000 ng/mL Current interpretive data was last revised on 2014. Phencyclidine, ur Negative Screen Negative Screen SASHA BRYAN ([place]) Comment: Interpretive Data PCP cut off value 25 ng/mL All drugs included in this panel are screening testing only. All positive urines will be confirmed upon Doctor request only. Unconfirmed screening results must not be used for non-medical purposes. Current interpretive data was last revised on 2015. Urine 07/31/2018 11:5 3 AM CDT 07/31/2018 12:00 PM CDT Narrative SASHA BRYAN ([place]) - 07/31/2018 12:55 PM CDT Keeley Ramirez LAB URINE ORDERABLES Fi nal Result SASHA BRYAN ([place]) 1 [facility] [place] [address] * CT Head WO Contrast (07/31/2018 10:48 AM CDT) Anatomical Region Laterality Modality Head and Neck N/A Computed Tomogra phy 07/31/2018 10:5 1 AM CDT Impressions 07/31/2018 10:[address] HEAD WITHOUT CONTRAST. Electronically signed by: Carmelo Clay M.D. Narrative 07/31/2018 10:[address] HEAD WO CONTRAST HISTORY: dizziness, headache, HTN. COMPARISON: 05/27/2012 TECHNIQUE: Sequential axial images of the brain were obtained without contrast. ?? FINDINGS: There is no evidence of intracranial hemorrhage, mass lesion or acute infarction. The ventricles, gyri, and sulci demonstrate normal size and configuration. Midline is normal. The extraaxial structures are unremarkable. Procedure Note Caremlo Clay MD - 07/31/2018 CT HEAD WO CONTRAST HISTORY: dizziness, headache, HTN. COMPARISON: 05/27/2012 TECHNIQUE: Sequential axial images of the brain were obtained without contrast. FINDINGS: There is no evidence of intracranial hemorrhage, mass lesion or acute infarction. The ventricles, gyri, and sulci demonstrate normal size and configuration. Midline is normal. The extraaxial structures are unremarkable. IMPRESSION: NORMAL CT HEAD WITHOUT CONTRAST. Electronically signed by: Carmelo Clay M.D. Keeley Ramirez IMG CT PROCEDURES Final Result * eGFR (07/31/2018 10:36 AM CDT) eGFR >60 mL/min/1.7 3 m2 SASHA BRYAN ([place]) Comment: Interpretive Data Reference Interval Normal ?>/= 90 mL/min/1.73m2 Mildly decreased* ? 60 - 89 mL/min/1.73m2 Mildly to moderately decreased ?45 - 59 mL/min/1.73m2 Moderately to severely decreased ??30 - 44 mL/min/1.73m2 Severely decreased ?15 - 29 mL/min/1.73m2 Kidney Failure ?< 15 ??mL/min/1.73m2 *Relative to young adult level If -[place] multiply value by 1.16. Estimated glomerular filtration [...] was last reviewed 2016. Blood specimen (specimen) 07/31/2018 10:36 AM CDT 07/31/2018 10:45 AM CDT Narrative SASHA StarksMICHAEL) - 07/31/2018 11:04 AM CDT [email or web address] LAB BLOOD ORDERABLES Fi nal Result SASHA BRYAN ([place]) 1 [facility] [place] [address] * TSH reflex to free T4 (07/31/2018 10:36 AM CDT) TSH 2.52 0.30 - 4.20 mcIUnit/mL SASHA BRYAN ([place]) Blood specimen (specimen) 07/31/2018 10:36 AM CDT 07/31/2018 11:23 AM CDT Narrative SASHA StarksMICHAEL) - 07/31/2018 11:49 AM CDT Set.fmt LAB BLOOD ORDERABLES Fi nal Result Performing Organization Address City/[facility]/ZIP Co de Phone Number SASHA BRYAN ([place]) 1 [facility] [place] [address] * Troponin T (07/31/2018 10:36 AM CDT) Pathologist [facility] Troponin T <0.01 0.00 - 0.01 ng/mL [facility] ([place]) Comment: Interpretive Data Reference ranges for children <18 years of age have not been established. - > or = 18 years: Serial determinations are recommended for the diagnosis of myocardial infarction. ??Temporal rise and fall are consistent with myocardial infarction when at least one value is above the 99th percentile upper reference limit for troponin assay. ??Journal of the [place] [employer] 2012;60:1581-98. Current Interpretive Data Last Revised Date: 2018. Blood specimen (specimen) 07/31/2018 10:36 AM CDT 07/31/2018 10:45 AM CDT Narrative SASHA BRYAN ([place]) - 07/31/2018 11:04 AM CDT Set.fmt LAB BLOOD ORDERABLES Fi nal Result Performing Organization Address City/[facility] Co de Phone Number SASHA BRYAN ([place]) 1 [facility] [employer] [place] [address] * Basic metabolic panel (07/31/2018 10:36 AM CDT) Pathologist [facility] Sodium 139 135 - 145 mmol/L [facility] ([place]EL) Potassium, pl 3.4 3.3 - 4.9 mmol/L [facility] ([place]) Chloride 102 97 - 110 mmol/L [facility] ([place]) CO2 25 22 - 32 mmol/L [facility] ([place]) Anion gap 12 2 - 15 mmol/L [facility] ([place]) BUN 8 8 - 25 mg/dL [facility] ([place]) Creatinine 0.79 0.60 - 1.10 mg/dL [facility] ([place]) Glucose 120 70 - 199 mg/dL [facility] ([place]EL) Comment: Interpretive Data Fasting glucose [...] interpretive data was last revised 2017. Calcium 8.6 8.5 - 10.3 mg/dL SASHA BRYAN ([place]) Blood specimen (specimen) 07/31/2018 10:36 AM CDT 07/31/2018 10:45 AM CDT Narrative ITALOPRINCESS BRYAN ([place]HAEL) - 07/31/2018 11:04 AM CDT Keeley Brian Ramirez LAB BLOOD ORDERABLES [facility] Result SASHA RANDI ([place]) 1 [facility] [place] [address] * ECG 12 lead (07/31/2018 10:24 AM CDT) Patient age 27 years [facility] Interpretation Text SINUS RHYTHMMODERATE VOLTAGE CRITERIA FOR LVH, CONSIDER NORMAL VARIANTNONSPECIFIC ST & T-WAVE ABNORMALITYPREVIOUS TRACIN10/29/2015 00.12 [facility] Comment:Physician Interprete r Dr. Junior Rosario M.D. Ventricular Rate EKG/Min 86 /min [facility] P Wave Duration 137 ms [facility] QRS-Interval (MSEC) 97 ms [facility] ID-Interval (MSEC) 161 ms [facility] QT Interval 366 ms [facility] QTc 411 ms [facility] QTC Interval ms [facility] P [place] 48 deg [facility] QRS [place] -6 deg [facility] T [place] 0 deg [facility] 07/31/2018 10:2 4 AM CDT Keeley Brian Ramirez ECG ORDERABLES Final R esult [facility] documented in this encounter Visit Diagnoses Diagnosis Hypertensive emergency- Primary Hypertensive emergency Hypokalemia Hypopotassemia Urinary tract infection without hematuria documented in this encounter Administered Medications Inactive Administered Medications - up to 3 most recent administrations Medication Order MAR Action Action Date Dose Rate Site acetaminophen (TYLENOL) tablet 1,000 mg 1,000 mg, oral, Once, On Tue07/31/18 at 1349, For 1 dose Given 07/31/2018 1:53 PM CDT 1,000 mg acetaminophen (TYLENOL) tablet 650 mg 650 mg, oral, Every 4 hours PRN, 1st line for pain, fever, fever greater than 38.3 C, Starting on Tue07/31/18 at 1458, Indications: Fever, PainIndications:Fever,Pain Given 08/02/2018 6:28 AM CDT 650 mg Given 07/31/2018 5:44 PM CDT 650 mg amLODIPine (NORVASC) tablet 10 mg 10 mg, oral, Daily, First dose on Tue07/31/18 at 1630, Start if SBP greater than 130mmHg Given 08/02/2018 10:44 AM CDT 10 mg Given 08/01/2018 9:17 AM CDT 10 mg Given 07/31/2018 10:07 PM CDT 10 mg aspirin chewable tablet 81 mg 81 mg, oral, Daily, First dose on Tue08/01/18 at 0900 Given 08/02/2018 9:01 AM CDT 81 mg Given 08/01/2018 9:17 AM CDT 81 mg enoxaparin (LOVENOX) syringe 40 mg 40 mg, subcutaneous, Daily (for enoxaparin), First dose on Tue07/31/18 at 2115, Indications: Deep Vein Thrombosis PreventionIndications:Deep Vein Thrombosis Prevention Given 08/01/2018 8:34 PM CDT 40 mg Left Lower Abdomen Given 07/31/2018 9:22 PM CDT 40 mg Ri ght Lower Abdomen famotidine (PEPCID) injection 20 mg 20 mg, intravenous, Administer over 2 Minutes, Every 12 hours scheduled, First dose on Tue07/31/18 at 2115, Indications: Prevention of Stress UlcerIndications:Prevention of Stress Ulcer Given 08/02/2018 9:01 AM CDT 20 mg Given 08/01/2018 8:34 PM CDT 20 mg Given 08/01/2018 9:18 AM CDT 20 mg famotidine (PEPCID) tablet 20 mg 20 mg, oral, 2 times daily, First dose on Tue08/02/18 at 2100, This medication, famotidine, was changed from IV route to oral route per protocol. hydrALAZINE (APRESOLINE) injection 10 mg 10 mg, intravenous, Once, On Tue07/31/18 at 1016, For 1 dose, Indications: hypertensionIndications:hypertension Given 07/31/2018 10:25 AM CDT 10 mg hydroCHLOROthiazide (HYDRODIURIL) tablet 25 mg 25 mg, oral, Once, On Tue07/31/18 at 1017, For 1 dose Given 07/31/2018 10:25 AM CDT 25 mg HYDROmorphone (DILAUDID) injection 1 mg 1 mg, intravenous, Once, On Tue08/01/18 at 1230, For 1 dose Given 08/01/2018 12:03 PM CDT 1 mg HYDROmorphone (DILAUDID) injection 1 mg 1 mg, intravenous, 4 times daily PRN, 1st line for pain, Starting on Tue08/01/18 at 1732 Given 08/02/2018 3:11 PM CDT 1 mg Given 08/02/2018 9:13 AM CDT 1 mg Given 08/02/2018 1:13 AM CDT 1 mg ketorolac (TORADOL) injection 15 mg 15 mg, intravenous, Once, On Tue08/01/18 at 0945, For 1 dose Given 08/01/2018 9:18 AM CDT 15 mg ketorolac (TORADOL) injection 30 mg 30 mg, intravenous, Every 6 hours PRN, for moderate to severe headache, Starting on Tue08/01/18 at 1743, For 5 days Given 08/01/2018 7:49 PM CDT 30 mg LORazepam (ATIVAN) injection 0.5 mg 0.5 mg, intravenous, Once, On Tue07/31/18 at 1102, For 1 dose Given 07/31/2018 11:26 AM CDT 0.5 mg morphine injection 2 mg 2 mg, intravenous, Every 3 hours PRN, 3rd line for pain, Starting on Tue07/31/18 at 2007 Given 08/01/2018 7:33 AM CDT 2 mg Given 07/31/2018 11:34 PM CDT 2 mg Given 07/31/2018 8:22 PM CDT 2 mg niCARdipine (CARDENE) 25 mg in sodium chloride 0.9% 250 mL (0.1 mg/mL) infusion 2.5-15 mg/hr (25-150 mL/hr), 100 mcg/mL, intravenous, Titrated, Starting on Tue07/31/18 at 1104, Until Tue08/01/18 at 1253, Initial rate: 5 mg/hr, Titrate: Up/Down, Titrate by: 2.5 mg/hr, Every: 10 minutes, Goal: SBP, SBP Goal: 110-130 mmHg, STAT Rate/Dose Change 07/31/2018 4:12 PM CDT 5 mg/hr 50 mL/hr Rate/Dose Verify 07/31/2018 3:10 PM CDT 7.5 mg/hr 75 mL/h r Rate/Dose Change 07/31/2018 1:35 PM CDT 7.5 mg/hr 75 mL/h r ondansetron (ZOFRAN) injection 4 mg 4 mg, intravenous, Every 6 hours PRN, nausea, vomiting, if not tolerating PO, Starting on Tue07/31/18 at 1458, Indications: Nausea and VomitingIndications:Nausea and Vomiting ondansetron ODT (ZOFRAN-ODT) disintegrating tablet 4 mg 4 mg, oral, Every 6 hours PRN, nausea, vomiting, Starting on Tue07/31/18 at 1458, Indications: Nausea and VomitingIndications:Nausea and Vomiting sodium chloride 0.9% bolus 1,000 mL 1,000 mL, intravenous, at 1,000 mL/hr, Administer over 1 Hours, Once, On Tue07/31/18 at 1102, For 1 dose New Bag 07/31/2018 12:00 PM CDT 1,000 mL 1000 mL/hr sodium chloride 0.9% flush 0.5-20 mL 0.5-20 mL, intra-catheter, Every 8 hours, First dose on Tue08/02/18 at 0600, Flush volume based on line type and size. Given 08/02/2018 3:11 PM CDT 10 mL Given 08/02/2018 5:28 AM CDT 10 mL sodium chloride 0.9% flush 0.5-20 mL 0.5-20 mL, intra-catheter, As needed, line care, Starting on Tue08/01/18 at 2349, Flush volume based on line type and size. Flush before and after each use. sulfamethoxazole-trimethoprim (BACTRIM,SEPTRA) 800-160 mg per tablet 160 mg of trimethoprim 160 mg of trimethoprim, oral, 2 times daily, First dose on Tue07/31/18 at 1700, Indications: Urinary Tract/Genitourinary InfectionIndications:Urinary Tract/Genitourinary Infection Given 07/31/2018 5:46 PM CDT 160 mg of trimethoprim traMADol (ULTRAM) 50 mg tablet - ADS Override Pull Starting on Tue07/31/18 at 1545, For 1 dose, BRANDI PAINTING RN: cabinet override traMADol (ULTRAM) tablet 50 mg 50 mg, oral, 4 times daily PRN, 1st line for pain, Starting on Tue07/31/18 at 1540 Given 08/02/2018 10:44 AM CDT 50 mg Given 08/01/2018 2:22 PM CDT 50 mg Given 08/01/2018 4:40 AM CDT 50 mg valproate (DEPACON,DEPAKENE) 500 mg in sodium chloride 0.9% 50 mL IVPB 500 mg, intravenous, at 55 mL/hr, Administer over 60 Minutes, Every 12 hours scheduled, First dose on Tue08/01/18 at 2100, Room temperature only, Indications: no more than total 3 daysIndications:no more than total 3 days New Bag 08/02/2018 9:00 AM CDT 500 mg 55 mL/hr New Bag 08/01/2018 7:23 PM CDT 500 mg 55 mL/hr documented in this encounter Discontinued Medications Medication Sig Discontinue Reason Start Date End Da te sulfamethoxazole-trime thoprim (BACTRIM,SEPTRA) 800-160 mg per tablet Take 1 tablet by mouth 2 (two) times a day for 7 days. Stop Taking at Discharge 07/30/2018 08/02/2018 documented as of this encounter Active and Recently Administered Medications Times are shown in CDT. Scheduled Medication Order 07/31/2018 08/01/2018 08/02/2018 acetaminophen (TYLENOL) tablet 1,000 mg (COMPLETED) 1,000 mg, oral, Once, On Tue07/31/18 at 1349, For 1 dose 1353 (Given - Provider: Samia Ramon, PITA) amLODIPine (NORVASC) tablet 10 mg 10 mg, oral, Daily, First dose on Tue07/31/18 at 1630, Start if SBP greater than 130mmHg 2207 (Given - Provider: Kaye Grant RN - Comment: BP parameters not met) 0917 (Given - Provider: Brandi Painting, PITA) 1044 (Given - Provider: Oscar Ta, PITA) aspirin chewable tablet 81 mg 81 mg, oral, Daily, First dose on Tue08/01/18 at 0900 0917 (Given - Provider: Brandi Painting, PITA) 0901 (Given - Provider: Oscar Ta, PITA) enoxaparin (LOVENOX) syringe 40 mg 40 mg, subcutaneous, Daily (for enoxaparin), First dose on Tue07/31/18 at 2115, Indications: Deep Vein Thrombosis Prevention 2121 (Given - Provider: Kaye Grant RN) 2033 (Given - Provider: Trupti Stallings, PITA) famotidine (PEPCID) injection 20 mg (CANCELED) 20 mg, intravenous, Administer over 2 Minutes, Every 12 hours scheduled, First dose on Tue07/31/18 at 2115, Indications: Prevention of Stress Ulcer 2121 (Given - Provider: Kaye Grant RN) 18 (Given - Provider: Brandi Painting, PITA)2033 (Given - Provider: Trupti Stallings, PITA) 09 (Given - Provider: Oscar Ta, PITA) famotidine (PEPCID) tablet 20 mg 20 mg, oral, 2 times daily, First dose on Tue08/02/18 at 2100, This medication, famotidine, was changed from IV route to oral route per protocol. hydrALAZINE (APRESOLINE) injection 10 mg (COMPLETED) 10 mg, intravenous, Once, On Tue07/31/18 at 1016, For 1 dose, Indications: hypertension 1025 (Given - Provider: Samia Ramon, PITA) hydroCHLOROthiazide (HYDRODIURIL) tablet 25 mg (COMPLETED) 25 mg, oral, Once, On Tue07/31/18 at 1017, For 1 dose 1025 (Given - Provider: Samia Ramon, PITA) HYDROmorphone (DILAUDID) injection 1 mg (COMPLETED) 1 mg, intravenous, Once, On Tue08/01/18 at 1230, For 1 dose 1203 (Given - Provider: Brandi Painting, PITA) ketorolac (TORADOL) injection 15 mg (COMPLETED) 15 mg, intravenous, Once, On Tue08/01/18 at 0945, For 1 dose 0918 (Given - Provider: Brandi Painting, PITA) LORazepam (ATIVAN) injection 0.5 mg (COMPLETED) 0.5 mg, intravenous, Once, On Tue07/31/18 at 1102, For 1 dose 1126 (Given - Provider: Samia Ramon RN) sodium chloride 0.9% bolus 1,000 mL (COMPLETED) 1,000 mL, intravenous, at 1,000 mL/hr, Administer over 1 Hours, Once, On Tue07/31/18 at 1102, For 1 dose 1200 (New Bag - Provider: Samia Ramon RN)2120 (Stopped - Provider: Nohemi Walker, PITA) sodium chloride 0.9% flush 0.5-20 mL 0.5-20 mL, intra-catheter, Every 8 hours, First dose on Tue08/02/18 at 0600, Flush volume based on line type and size. 0528 (Given - Provider: Trupti Stallings RN)1511 (Given - Provider: Oscar Ta RN) sulfamethoxazole-trimet hoprim (BACTRIM,SEPTRA) 800-160 mg per tablet 160 mg of trimethoprim (CANCELED) 160 mg of trimethoprim, oral, 2 times daily, First dose on Tue07/31/18 at 1700, Indications: Urinary Tract/Genitourinary Infection 1746 (Given - Provider: Brandi Painting, PITA) valproate (DEPACON,DEPAKENE) 500 mg in sodium chloride 0.9% 50 mL IVPB 500 mg, intravenous, at 55 mL/hr, Administer over 60 Minutes, Every 12 hours scheduled, First dose on Tue08/01/18 at 2100, Room temperature only, Indications: no more than total 3 days 1923 (New Bag - Provider: Oscar Ta RN) 0900 (New Bag - Provider: Oscar Ta RN) Continuous Medication Order 07/31/2018 08/01/2018 08/02/2018 niCARdipine (CARDENE) 25 mg in sodium chloride 0.9% 250 mL (0.1 mg/mL) infusion (CANCELED) 2.5-15 mg/hr (25-150 mL/hr), 100 mcg/mL, intravenous, Titrated, Starting on Tue07/31/18 at 1104, Until Tue08/01/18 at 1253, Initial rate: 5 mg/hr, Titrate: Up/Down, Titrate by: 2.5 mg/hr, Every: 10 minutes, Goal: SBP, SBP Goal: 110-130 mmHg, STAT 1200 (New Bag - Provider: Samia Ramon RN)1335 (Rate/Dose Change - Provider: Samia Ramon RN)1510 (Rate/Dose Verify - Provider: Brandi Painting RN)1612 (Rate/Dose Change - Provider: Brandi Painting RN)1730 (Stopped - Provider: Brandi Painting RN) PRN Medication Order 07/31/2018 08/01/2018 08/02/2018 acetaminophen (TYLENOL) tablet 650 mg 650 mg, oral, Every 4 hours PRN, 1st line for pain, fever, fever greater than 38.3 C, Starting on Tue07/31/18 at 1458, Indications: Fever, Pain 1744 (Given - Provider: Brandi Painting RN) 0628 (Given - Provider: Trupti Stallings, PITA) HYDROmorphone (DILAUDID) injection 1 mg 1 mg, intravenous, 4 times daily PRN, 1st line for pain, Starting on Tue08/01/18 at 1732 1751 (Given - Provider: Oscar Ta RN) 0113 (Given - Provider: Trupti Stallings, PITA)0913 (Given - Provider: Oscar Ta, PITA)1511 (Given - Provider: Oscar Ta, PITA) ketorolac (TORADOL) injection 30 mg 30 mg, intravenous, Every 6 hours PRN, for moderate to severe headache, Starting on Tue08/01/18 at 1743, For 5 days 1949 (Given - Provider: Trupti Stallings RN) morphine injection 2 mg (CANCELED) 2 mg, intravenous, Every 3 hours PRN, 3rd line for pain, Starting on Tue07/31/18 at 2006 2021 (Given - Provider: Kaye Grant RN)2334 (Given - Provider: Kaye Grant RN) 0733 (Given - Provider: Brandi Painting RN) ondansetron (ZOFRAN) injection 4 mg(Linked Group 1) 4 mg, intravenous, Every 6 hours PRN, nausea, vomiting, if not tolerating PO, Starting on Tue07/31/18 at 1458, Indications: Nausea and Vomiting ondansetron ODT (ZOFRAN-ODT) disintegrating tablet 4 mg(Linked Group 1) 4 mg, oral, Every 6 hours PRN, nausea, vomiting, Starting on Tue07/31/18 at 1458, Indications: Nausea and Vomiting sodium chloride 0.9% flush 0.5-20 mL 0.5-20 mL, intra-catheter, As needed, line care, Starting on Tue08/01/18 at 2349, Flush volume based on line type and size. Flush before and after each use. traMADol (ULTRAM) tablet 50 mg 50 mg, oral, 4 times daily PRN, 1st line for pain, Starting on Tue07/31/18 at 1540 1547 (Given - Provider: Brandi Painting RN)2207 (Given - Provider: Kaye Grant RN) 0440 (Given - Provider: Kaye Grant RN)1422 (Given - Provider: Oscar Ta, PITA) 1044 (Given - Provider: Oscar Ta RN) Linked Groups Order Group 1: ondansetron ODT (ZOFRAN-ODT) disintegrating tablet 4 mgJump to med 4 mg, oral, Every 6 hours PRN, nausea, vomiting, Starting on Tue07/31/18 at 1458, Indications: Nausea and Vomiting Or ondansetron (ZOFRAN) injection 4 mgJump to med 4 mg, intravenous, Every 6 hours PRN, nausea, vomiting, if not tolerating PO, Starting on 07/31/18 at 1458, Indications: Nausea and Vomiting documented in this encounter Orders Medications Ordered That Mehdi ht Not Have Been Administered Count Last Ordered Date First Ordered Date famotidine (PEPCID) tablet 20 mg 1 08/02/20 18 HYDROmorphone (DILAUDID) injection 1 mg 1 0 08/01/2018 sodium chloride 0.9% flush 0.5-20 mL 1 02/2018 labetalol (NORMODYNE,TRANDAT E) injection 10 mg 1 07/31/2018 ondansetron (ZOFRAN) injection 4 mg 1 07/31 ondansetron ODT (ZOFRAN-ODT) disintegrating tablet 4 mg 1 07/31/2018 Diet Count Last Ordered Date First Orde red Date ADULT DISCHARGE DIET 1 08/02/2018 Nursing Count Last Ordered Date First Orde red Date DISCHARGE ACTIVITY 1 08/02/2018 DISCHARGE INSTRUCTIONS 1 08/02/2018 FOLLOW UP PRIMARY PHYSICIAN 1 08/02/2018 FOLLOW UP WITH PROVIDER 1 08/02/2018 ACTIVITY 1 07/31/2018 CARDIO RESPIRATORY MONITORING 1 07/31/2018 CONTINUOUS PULSE OXIMETRY 1 07/31/2018 NOTIFY PROVIDER (SPECIFY) 1 07/31/2018 VITAL SIGNS 1 07/31/2018 WEIGH PATIENT 2 07/31/2018 Consult Count Last Ordered Date First Orde red Date IP CONSULT TO NEUROLOGY 1 08/01/2018 IV Count Last Ordered Date First Orde red Date SALINE LOCK IV 1 07/31/2018 Admission Count Last Ordered Date First Orde red Date ASSIGN PATIENT STATUS 2 08/02/20182017 Transfer Count Last Ordered Date First Orde red Date TRANSFER PATIENT 1 08/01/2018 CORE MEASURES Count Last Ordered Date First Ord ered Date REASON FOR NO VTE PROPHYLAXIS AT ADMISSION 1 07/31/2018 ADT Patient Update Count Last Ordered Date Firs t Ordered Date ED IP DECISION TO ADMIT 1 07/31/2018 documented in this encounter Additional Health Concerns Infection Onset Date Last Indicated Resolved Time MRSA Comment:Backloaded September 16, 2011 05/28/2011 05/28/201106/28 5:00 AM CDT documented as of this encounter Care Teams [employer] Relationship Specialty Start Date End Date Shante Thomas MD PCP - General 07/30/18 10/14/18 documented as of this encounter
--- OUTSIDE RECORDS SUMMARY | 2024-11-30 00:28 | XMS_ITS | Encounter Summary ---
Author Organization [facility] Healthcare Address [address] [place] [address] Care Team Providers Care Mechanic General Operational Test Name Role Phone Mayela Thomas MD Primary Care Provider [phone] Encounter Details Date Type Department Care Team (Late st Contact Info) Description 09/09/2016 8:34 AM CDT - 09/09/2016 11:59 PM CDT Hospital Encounter [facility] Yessica Martines MD [address] [place] [address] [address] CORMIER [address] [address] Encounter for supervision of normal Social History Tobacco Use Types Packs/Day Years Used Date Smoking Tobacco: Never Assessed Comments Unknown Sex and Gender Information Value Date Recorded Sex Assigned at Not on file Legal Sex 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 ??Uncertain LMP. RESULT: Grayscale real time examination was performed. ??A single, live intrauterine fetus is present in cephalic presentation. ??Cervical length is 5.1 cm. ??Amniotic fluid volume is normal. ??Placenta is anterior; grade 1. ??BPD is 48 mm (20 weeks 4 days), head circumference 183 mm (20 weeks 5 days), abdominal circumference 154 mm (20 weeks 4 days), and femur length 34 mm (20 weeks 6 days). ??Gestational age is 20 weeks 5 days with EDC January 14, based on current measurements. ??Estimated weight 370 +/- 55 grams. ??Regular heart rate is recorded at 148 beats per minute. ??Identified parts are listed on the OB worksheet. ??No obvious abnormality is seen at this time. IMPRESSION: 1. SINGLE, LIVE INTRAUTERINE FETUS OF APPROXIMATELY 20 WEEKS 5 DAYS GESTATION WITH EDC JANUARY 14 BY CURRENT MEASUREMENTS. 2. ESTIMATED WEIGHT 370 +/- 55 GRAMS. 3. NO IDENTIFIABLE ABNORMALITIES AT THIS TIME. Interpreting Physician: ??DR FREDDY FLORES M.D. ??Read on: ??Sep 09 2016 10:31A Transcribed by: ??varosana ??On: Sep 09 2016 ??1:30P Approved Electronically by: ??SANDRA Portillo, DR HAYES ??on: ??Sep 09 2016 8:18P Attending: ??YESSICA SHERMAN Requesting: ??DR YESSICA SHERMAN L Requesting Fax: ??[phone] Attending Fax: ??-- Attending ID: ??[id number] Requesting ID: ??[id number] Report To 1 ID: ??[id number] Report To 1 Name: ??YESSICA SHERMAN Report To 1 FAX: ??-- NextGen Order #: Procedure Note Provider, MD Esther - 04/04/2017 US OB >=14 wks Acc#: [id number] DATE OF EXAM: Sep 09 2016 CLINICAL HISTORY: Anatomy scan. Uncertain LMP. RESULT: Grayscale real time examination was performed. A single, liveintrauterine fetus is present in cephalic presentation. Cervical lengthis 5.1 cm. Amniotic fluid volume is normal. Placenta is anterior;grade 1. BPD is 48 mm (20 weeks 4 days), head circumference 183 mm (20 weeks 5days), abdominal circumference 154 mm (20 weeks 4 days), and femur mm (20 weeks 6 days). Gestational age is 20 weeks 5 days with EDC bruary , based on current measurements. Estimated weight 370+/- 55 grams. Regular heart rate is recorded at 148 beats perminute. Identified parts are listed on the OB worksheet. Noobvious abnormality is seen at this time. IMPRESSION: 1. SINGLE, LIVE INTRAUTERINE FETUS OF APPROXIMATELY 20 WEEKS 5 DAYSGESTATION WITH EDC JANUARY 14 BY CURRENT MEASUREMENTS. 2. ESTIMATED WEIGHT 370 +/- 55 GRAMS. 3. NO IDENTIFIABLE ABNORMALITIES AT THIS TIME. Interpreting Physician: DR FREDDY FLORES M.D. Read on: Sep 09 201610:31A Transcribed by: karan On: Sep 09 2016 1:30P Approved Electronically by: SANDRA Portillo, DR HAYES on: Sep 09 20168:18P Attending: YESSICA SHERMAN Requesting: DR YESSICA SHERMAN Requesting Attending Fax: -- Attending ID: [id number] Requesting ID: [id number] Report To 1 ID: [id number] Report To 1 Name: YESSICA SHERMAN Report To 1 FAX: -- NextGen Order #: us Historical Provider MD SHARIF US PROCEDURES Final R esult documented in this encounter Visit Diagnoses Diagnosis Encounter for supervision of normal documented in this encounter Additional Health Concerns Infection Onset Date Last Indicated Resolved Time MRSA Comment:Backloaded September 16, 2011 05/28/2011 05/28/201106/28 5:00 AM CDT documented as of this encounter Care Teams Mechanic General Operational Test Relationship Specialty Start Date End Date Mayela Thomas MD [address] [place] [address] PCP - General 09/06/15 07/29/18 documented as of this encounter
--- OUTSIDE RECORDS SUMMARY | 2024-11-30 00:28 | XMS_ITS | Encounter Summary ---
Author Organization [facility] Healthcare Address [address] [place] [address] Care Team Providers Care Knot Cutter Name Role Phone Mayela Thomas MD Primary Care Provider [phone] Encounter Details Date Type Department Care Team (Late st Contact Info) Description 01/21/2015 10:29 AM PRICING SPECIALIST - 01/21/2015 3:07 PM PRICING SPECIALIST Hospital Encounter [facility] CLINCONV Edith José Dysmenorrhea Social History Tobacco Use Types Packs/Day Years Used Date Smoking Tobacco: Never Assessed Comments Unknown Sex and Gender Information Value Date Recorded Sex Assigned at Not on file Legal Sex Female 1:47 AM PRICING SPECIALIST Gender Identity Not on file Sexual Orientation Not on file documented as of this encounter Plan of Treatment Not on file documented as of this encounter Procedures Procedure Name Priority Date/Time Associated Diagnosis Comments URINE MICROSCOPY Routine 01/21/2015 12:0 8 PM PRICING SPECIALIST URINE CHORIONIC GONADOTROPIN (HCG) Routine 01/21/2015 12:08 PM PRICING SPECIALIST URINALYSIS Routine 01/21/2015 12:08 PM PRICING SPECIALIST SERUM BASIC METABOLIC PANEL Routine 01/21/2015 11:55 AM PRICING SPECIALIST PLASMA PROTHROMBIN TIME (PT) Routine 01/21/2015 11:55 AM PRICING SPECIALIST BLOOD WBC CELL MORPHOLOGIC EXAM, AUTO Routine 01/21/2015 11:55 AM PRICING SPECIALIST BLOOD CELL COUNT (CBC) Routine 01/21/2015 11:55 AM PRICING SPECIALIST SERUM CHORIONIC GONADOTROPIN (HCG), QUANTITATIVE Routine 01/21/2015 5:55 AM PRICING SPECIALIST DISCHARGE LABORATORY CUMULATIVE REPORT Routine 01/21/2015 12:00 AM PRICING SPECIALIST documented in this encounter Results * Urine chorionic gonadotropin (HCG) (01/21/2015 12:08 PM PRICING SPECIALIST) HCG, ur Negative NEGATIVE HISTORICAL RESULTS Urine 01/21/2015 12:0 8 PM PRICING SPECIALIST Historical Provider LAB BLOOD ORDERABLES Ruby l Result HISTORICAL RESULTS * (ABNORMAL) Urinalysis (01/21/2015 12:08 PM PRICING SPECIALIST) Color, ur YELLOW YELLOW HISTORICAL RESULTS Clarity, ur TURBID(A) CLEAR HISTORIC AL RESULTS Specific gravity, ur 1.024 1.003 - 1.030 gu HISTORICAL RESULTS Leukocyte esterase, ur Negative NEGATIVE HISTORICAL RESULTS Nitrites, ur Negative NEGATIVE HISTORI IBETH RESULTS pH, ur 7.5 6.0 HISTORICAL RESULTS Protein, ur Negative NEGATIVE HISTORIC AL RESULTS Glucose, ur Negative NEGATIVE HISTORIC AL RESULTS Ketones, ur Negative NEGATIVE HISTORIC AL RESULTS Urobilinogen, quant, ur 1.0 0.2 - 1.0 mg/dl HISTORICAL RESULTS Bilirubin, ur Negative NEGATIVE HISTOR ICAL RESULTS U Blood LARGE(A) NEGATIVE HISTORICAL RESULTS Urine 01/21/2015 12:0 8 PM PRICING SPECIALIST Historical Provider LAB BLOOD ORDERABLES Ruby l Result HISTORICAL RESULTS * (ABNORMAL) Urine microscopy (01/21/2015 12:08 PM PRICING SPECIALIST) WBC, ur 0 - 2 0 - 2 /hpf HISTORICA L RESULTS RBC, ur 10 - 25(A) 0 - 5 /hpf HISTORIC AL RESULTS Epithelial cells, ur 5 - 10(A) 0 - 2 /hpf HISTORICAL RESULTS Bacteria, ur Negative NEGATIVE /hpf HISTORICAL RESULTS Hyaline casts NOTSEEN 0 - 4 /lpf HISTO RICAL RESULTS Crystals, ur Negative NEGATIVE HISTORI IBETH RESULTS Yeast, ur Negative NEGATIVE HISTORICAL RESULTS Pathological casts, ur Negative NEGATIVE HISTORICAL RESULTS Urine 01/21/2015 12:0 8 PM PRICING SPECIALIST Historical Provider LAB BLOOD ORDERABLES Ruby l Result Performing Organization Address [facility] Co de Phone Number HISTORICAL RESULTS * Plasma prothrombin time (PT) (01/21/2015 11:55 AM PRICING SPECIALIST) Prothrombin time (PT) 13.2 10.9 - 14.8 seconds HISTORICAL RESULTS INR 1.04 HISTORICAL RESULTS Comment: RECOMMENDED RANGES FOR PROTIME INR: NOTE: THE INR HAS BEEN VALIDATED ONLY FOR PATIENTS ON STABLE ORAL ?ANTICOAGULANT THERAPY. ?2.0 - 3.0 ??PROPHYLAXIS OF VENOUS THROMBOSIS (HIGH RISK SURGERY) ?2.0 - 3.0 ??TREATMENT OF VENOUS THROMBOSIS ?2.0 - 3.0 ??TREATMENT OF PULMONARY EMBOLISM ?2.0 - 3.0 ??PREVENTION OF SYSTEMIC EMBOLISM ? TISSUE HEART VALVES ? AMI (TO PREVENT SYSTEMIC EMBOLISM)* ? VALVULAR HEART DISEASE ? ATRIAL FIBRILLATION ?2.5 - 3.5 ??MECHANICAL PROSTHETIC VALVES (HIGH RISK) ?2.0 - 3.0 ??BILEAFLET MECHANICAL VALVE IN AORTIC POSITION *If oral anticoagulant therapy is elected to prevent recurrent myocardial infarction, an INR of 2.5 to 3.5 is recommended, consistent with Food and Drug Administration recommendations. Plasma 01/21/2015 11:5 5 AM PRICING SPECIALIST Historical Provider LAB BLOOD ORDERABLES Ruby l Result Performing Organization Address [facility] Co de Phone Number HISTORICAL RESULTS * (ABNORMAL) Serum basic metabolic panel (01/21/2015 11:55 AM PRICING SPECIALIST) BUN 8.5 8.0 - 25.0 mg/dl HISTORICAL RESULTS Sodium 137 135 - 145 mmol/L HISTORICAL RESULTS Potassium, sr 3.7 3.5 - 5.1 mmol/L HISTORICAL RESULTS Chloride 103 97 - 110 mmol/L HISTORICAL RESULTS CO2 24 22 - 32 mmol/L HISTORICAL RESULTS Glucose 91 70 - 199 mg/dl HISTORICAL RESULTS Comment: Note:The glucose is assumed non fasting Fastin-99 mg/dl Random: 70-199 mg/dl Either a fasting glucose > 126 mg/dL or a random glucose > 200 mg/dL plus symptoms is diagnostic of diabetes when confirmed on another day. Fasting values > 100 mg/dl but < 125 mg/dL are diagnostic of impaired fasting glucose. Creatinine 0.72 0.60 - 1.10 mg/dl HISTORICAL RESULTS Comment: eGFR: >70 ml/min/1.73sq.m if non -Yemeni. eGFR: >70 ml/min/1.73sq.m if -Yemeni. AVE GFR for 20-29 yr. age group: ??116 ml/min/1.73sq.m Calculated using the MDRD Equation BUN/creat ratio 12 10 - 20 HIST ORICAL RESULTS A. gap 13 7 - 14 mmol/L HISTORICAL RESULTS Osmo, calc 272(L) 275 - 295 mOsm/kg HISTORICAL RESULTS Calcium 9.0 8.6 - 10.2 mg/dl HISTORICAL RESULTS Serum 01/21/2015 11:5 5 AM PRICING SPECIALIST us Historical Provider LAB BLOOD ORDERABLES Ruby murphy Result HISTORICAL RESULTS * (ABNORMAL) Blood cell count (CBC) (01/21/2015 11:55 AM PRICING SPECIALIST) WBC 9.1 4.0 - 10.5 K/cumm HISTORICAL RESULTS RBC 4.10(L) 4.20 - 5.40 M/cumm HISTORICAL RESULTS Hgb 11.8(L) 12.0 - 16.0 g/dl HISTORICAL RESULTS Hct 37.1 37.0 - 47.0 % HISTORICAL RESULTS MCV 90.5 77.0 - 97.0 fl HISTORICAL RESULTS MCH 28.8 23.0 - 34.0 pg HISTORICAL RESULTS MCHC 31.8(L) 32.0 - 36.0 g/dl HISTORICAL RESULTS Rdw 12.4 11.5 - 14.5 % HISTORICAL RESULTS Platelets 286 150 - 400 K/cumm HISTORICAL RESULTS MPV 9.8 7.4 - 10.4 fl HISTORICAL RESULTS Blood specimen (specimen) 01/21/2015 11:55 AM PRICING SPECIALIST Historical Provider LAB BLOOD ORDERABLES Ruby murphy Result Performing Organization Address City/State/[facility] Co de Phone Number HISTORICAL RESULTS * (ABNORMAL) Blood WBC cell morphologic exam, auto (01/21/2015 11:55 AM PRICING SPECIALIST) Lymphocytes 28.9 25.0 - 33.0 % HISTORICAL RESULTS Monos 6.6 0.0 - 13.0 % HISTORICAL RESULTS Neutrophils 62.3 54.0 - 69.0 % HISTORICAL RESULTS Eosinophils 1.6 0.0 - 10.0 % HISTORICAL RESULTS Basophils 0.4 0.0 - 1.0 % HISTORICAL RESULTS Immature granulocytes 0.2 0.0 - 1.0 % HISTORICAL RESULTS Lymphocytes, abs 2.6 1.2 - 3.4 K/cumm HISTORICAL RESULTS Monocytes, absolute 0.6(L) 1.1 - 1.9 K/cumm HISTORICAL RESULTS Neutrophils, abs 5.7 1.4 - 6.5 K/cumm HISTORICAL RESULTS Eosinophils, abs 0.2 0.0 - 0.7 cells/cumm HISTORICAL RESULTS Basophils, abs 0.0 0.0 - 0.2 K/cumm HISTORICAL RESULTS Immature granulocyte, abs 0.0 0.0 - 0.0 K/cumm HISTORICAL RESULTS Blood specimen (specimen) 01/21/2015 11:55 AM PRICING SPECIALIST Historical Provider LAB BLOOD ORDERABLES Ruby murphy Result HISTORICAL RESULTS * Serum chorionic gonadotropin (HCG), quantitative (01/21/2015 5:55 AM PRICING SPECIALIST) HCG, quant <5.0 0.0 - 5.0 IUnits/L HISTORICAL RESULTS Serum 01/21/2015 5:55 AM PRICING SPECIALIST Narrative HISTORICAL RESULTS - 01/21/2015 6:36 AM PRICING SPECIALIST NEGATIVE: ??0-5 MIU/ML BORDERLINE: ??6-25 MIU/ML POSITIVE: ??GREATER THAN 25 MIU/ML APPROX GEST AGE ?APPROX HCG CONCENTRATION ?3-4 WEEKS ?9-130 ?4-5 WEEKS ? 75-2600 ?5-6 WEEKS ?850-20,800 ?6-7 WEEKS ? 4000-100,200 ?7-12 WEEKS ? 34[address]-949,000 ?? 12-16 WEEKS ? 81751-664,000 ?? 16-29 WEEKS ?1400-53,000 ?? 29-41 WEEKS ? 900-60,000 us Historical Provider MD LAB BLOOD ORDERABLES Ruby murphy Result HISTORICAL RESULTS * Discharge Laboratory Cumulative Report (01/21/2015 12:00 AM PRICING SPECIALIST) 01/21/2015 Narrative HISTORICAL RESULTS - 01/22/2015 12:40 AM PRICING SPECIALIST Patient No: [id number] ? [facility] Patient Name: AIDA DESHPANDE ?[facility] Age: 24 YRS ?: 1990 ?Sex:F ?[address] )[phone] ?? Adm Dt: 01/21/2015 ?[place], [place] ??[id number] Created: 01/22/2015 ??0040 ?? Pt. Type: E ? Discharge Dt: 01/21/2015 ? Pathologists: Aida Pereyra MD Admit Dr. Aby Qiu: UNKNOWN, NOTINFILE ? BLOOD CELL COUNTS ?Collection Date: ?01/21/15 ?Collection Time: ?1155 ? Ref Range: ?? Units: [4.00-10.50] /CMM ? WBC X 10^3 ?9.12 [4.20-5.40] ??/CMM ? RBC X 10^6 ?4.10 L [12.0-16.0] ??G/DL ? HGB ? 11.8 L [37.0-47.0] ??% ?HCT ? 37.1 [77.0-97.0] ??FL ? MCV ? 90.5 [23.0-34.0] ??PG ? MCH ? 28.8 [32.0-36.0] ??% ?MCHC ?31.8 L [11.5-14.5] ??% ?RDW ? 12.4 [150-400] ?? /CMM ? PLT X 10^3 ? 286 ?BLOOD CELL DIFFERENTIAL ?Collection Date: ?01/21/15 ?Collection Time: ?1155 ? Ref Range: ?? Units: [54.0-69.0] ??% ?NEUTROPHILS ? 62.3 [25.0-33.0] ??% ?LYMPHOCYTES ? 28.9 [0.0-13.0] ??% ?MONOCYTES ?6.6 [0.0-10.0] ??% ?EOSINOPHILS ?1.6 [0.0-1.0] ?? % ?BASOPHILS ?0.4 ? /CMM ? A LYMPHOCYTE ? 2.6 [0.0-1.0] ?? % ?IMM GRAN % ? 0.2 [0.00-0.02] ??/CMM ? A IMM GRAN ?0.02 [1.1-1.9] ?? /CMM ? A MONOCYTE ? 0.6 L [1.4-6.5] ?? /CMM ? A NEUTROPHIL ? 5.7 [0.0-0.7] ?? /CMM ? A EOSINOPHIL ? 0.2 [0.0-0.2] ?? /CMM ? A BASOPHIL ? 0.0 Footnotes and Symbols: L = Low ?? CONTINUED ?Page: ?? 1 Patient No: [id number] ? [facility] Patient Name: AIDA DESHPANDE ?[facility] Age: 24 YRS ?: 1990 ?Sex:F ?[address] )[phone] ?? Adm Dt: 01/21/2015 ?[place] ??[id number] Created: 01/22/2015 ??0040 ?? Pt. Type: E ? Discharge Dt: 01/21/2015 ? Pathologists: Aida Pereyra MD Admit Dr. Aby Qiu: UNKNOWN, NOTINFILE ? GENERAL CHEMISTRY ?Collection Date: ?01/21/15 ?Collection Time: ?1155 ? Ref Range: ?? Units: [135-145] ?? MMOL/L ? SODIUM ? 137 [3.5-5.1] ?? MMOL/L ? POTASSIUM ?3.7 [97.0-110.0] MMOL/L ? CHLORIDE ? 103.0 [22.0-32.0] ??MMOL/L ? TOTAL CO2 ? 24.5 ?? [7-14] ?MMOL/L ? ANION GAP ? 13 ??[70-199] ?? MG/DL ?GLUCOSE ? 91 f [275-295] ?? MOSM/K ? CALCULATED OSMO ?272 L [8.6-10.2] ??MG/DL ?CALCIUM ?9.0 [8.0-25.0] ??MG/DL ?BUN ?8.5 ??[10-20] ? B/C RATIO ? 12 [0.60-1.10] ??MG/DL ?CREATININE ?0.72 f ?01/21/15 1155 eGFR: >70 ml/min/1.73sq.m if non -Yemeni. eGFR: >70 ml/min/1.73sq.m if -Yemeni. AVE GFR for 20-29 yr. age group: ??116 ml/min/1.73sq.m Calculated using the MDRD Equation FOOTNOTE ADDED ON ?? 01/21/15 ?? AT 1236 BY 999 Footnotes and Symbols: L = Low, f = Footnote GLUCOSE (01/08/15 -- Current) Note:The glucose is assumed non fasting Fastin-99 mg/dl Random: 70-199 mg/dl Either a fasting glucose > 126 mg/dL or a random glucose > 200 mg/dL plus symptoms is diagnostic of diabetes when confirmed on another day. Fasting values > 100 mg/dl but < 125 mg/dL are diagnostic of impaired fasting glucose. ?? CONTINUED ?Page: ?? 2 Patient No: [id number] ? [facility] Patient Name: AIDA DESHPANDE ?[facility] Age: 24 YRS ?: 1990 ?Sex:F ?[address] )[phone] ?? Adm Dt: 01/21/2015 ?[place], [place] ??[id number] Created: 01/22/2015 ??0040 ?? Pt. Type: E ? Discharge Dt: 01/21/2015 ? Pathologists: Aida Pereyra MD Admit Dr. Aby Qiu: UNKNOWN, NOTINFILE ? HORMONES ?Collection Date: ?01/21/15 ? 01/21/15 ?Collection Time: ?1208 ? 1155 ? Ref Range: ?? Units: ?? [0-5] ? mIU/ml ? BETA HCG QUANT ? <5 f [NEGATIVE] ?U ? NEGATIVE Footnotes and Symbols: f = Footnote BETA HCG QUANT (01/05/15 -- Current) NEGATIVE: ??0-5 MIU/ML BORDERLINE: ??6-25 MIU/ML POSITIVE: ??GREATER THAN 25 MIU/ML APPROX GEST AGE ?APPROX HCG CONCENTRATION ?3-4 WEEKS ?9-130 ?4-5 WEEKS ? 89-2600 ?5-6 WEEKS ?850-20,800 ?6-7 WEEKS ? 4000-100,200 ?7-12 WEEKS ? 73544-590,000 ?? 12-16 WEEKS ? 05805-963,000 ?? 16-29 WEEKS ?1400-53,000 ?? 29-41 WEEKS ? 900-60,000 ?? CONTINUED ?Page: ?? 3 Patient No: [id number] ? [facility] Patient Name: AIDA DESHPANDE ?[facility] Age: 24 YRS ?: 1990 ?Sex:F ?[address] )[phone] ?? Adm Dt: 01/21/2015 ?[place], [place] ??[address] Created: 01/22/2015 ??0040 ?? Pt. Type: E ? Discharge Dt: 01/21/2015 ? Pathologists: Aida Pereyra MD Admit Attend : UNKNOWN, NOTINFILE ?COAGULATION ? Units: ?? PROTIME ?INR ? Low: ??[10.9-14.8] ? Ref Range: ? SECS ? 01/21/15 1155 ?13.2 ? 1.04 f Footnotes and Symbols: f = Footnote INR (06/16/00 -- Current) RECOMMENDED RANGES FOR PROTIME INR: NOTE: THE INR HAS BEEN VALIDATED ONLY FOR PATIENTS ON STABLE ORAL ?ANTICOAGULANT THERAPY. ?2.0 - 3.0 ??PROPHYLAXIS OF VENOUS THROMBOSIS (HIGH RISK SURGERY) ?2.0 - 3.0 ??TREATMENT OF VENOUS THROMBOSIS ?2.0 - 3.0 ??TREATMENT OF PULMONARY EMBOLISM ?2.0 - 3.0 ??PREVENTION OF SYSTEMIC EMBOLISM ? TISSUE HEART VALVES ? AMI (TO PREVENT SYSTEMIC EMBOLISM)* ? VALVULAR HEART DISEASE ? ATRIAL FIBRILLATION ?2.5 - 3.5 ??MECHANICAL PROSTHETIC VALVES (HIGH RISK) ?2.0 - 3.0 ??BILEAFLET MECHANICAL VALVE IN AORTIC POSITION *If oral anticoagulant therapy is elected to prevent recurrent myocardial infarction, an INR of 2.5 to 3.5 is recommended, consistent with Food and Drug Administration recommendations. ?? CONTINUED ?Page: ?? 4 Patient No: [id number] ? [facility] Patient Name: AIDA DESHPANDE ?[facility] Age: 24 YRS ?: 1990 ?Sex:F ?[address] )[phone] ?? Adm Dt: 01/21/2015 ?[place] ??[id number] Created: 01/22/2015 ??0040 ?? Pt. Type: E ? Discharge Dt: 01/21/2015 ? Pathologists: Aida Quinterosit Dr. Aby Qiu: UNKNOWN, NOTINFILE ?URINALYSIS ?Collection Date: ?01/21/15 ?Collection Time: ?1208 ? Ref Range: ?? Units: [YELLOW] ? U COLOR ? YELLOW ??[CLEAR] ? U APPEARANCE ?TURBID * [1.003-1.030] ? U SPEC GRAVITY ? 1.024 [NEGATIVE] ?U LEUKO ESTRASE ? NEGATIVE [NEGATIVE] ?U NITRITE ? NEGATIVE ?? [6.0] ?U PH ? 7.5 [NEGATIVE] ?U PROTEIN ? NEGATIVE [NEGATIVE] ?U GLUCOSE ? NEGATIVE [NEGATIVE] ?U KETONES ? NEGATIVE [0.2- 1.0] ?UROBILINOGEN ? 1.0 [NEGATIVE] ?U BILIRUBIN ? NEGATIVE [NEGATIVE] ?U BLOOD ?LARGE * ?? [0-2] ?U WBC ?0-2 ?? [0-5] ?U RBC ?10-25 * ?? [0-2] ?U EPI CELLS ? 5-10 * [NEGATIVE] ?U BACTERIA ?NEGATIVE ?U YEASTS ?NEGATIVE ?? [0-4] ?U HYALINE CASTS ? NOT SEEN [NEGATIVE] ?U CRYSTALS ?NEGATIVE [NEGATIVE] ?U PATH CASTS ?NEGATIVE Footnotes and Symbols: * = Abnormal ?? END OF CHART ? Page: ?? 5 us Historical Provider LAB BLOOD ORDERABLES Ruby l Result HISTORICAL RESULTS documented in this encounter Visit Diagnoses Diagnosis Dysmenorrhea documented in this encounter Additional Health Concerns Infection Onset Date Last Indicated Resolved Time MRSA Comment:Backloaded September 16, 2011 05/28/2011 05/28/201106/28 5:00 AM CDT documented as of this encounter Care Teams Knot Cutter Relationship Specialty Start Date End Date Mayela Thomas MD [address] [place] [address] PCP - General 06/01/11 09/05/15 documented as of this encounter
--- OUTSIDE RECORDS SUMMARY | 2024-11-30 00:28 | XMS_ITS | Encounter Summary ---
Author Organization [facility] Healthcare Address [address] [place] [address] Care Team Providers Care Manager Strategic Development Name Role Phone Shante Thomas MD Primary Care Provider [phone] Reason for Visit * Reason Comments Abdominal Pain Encounter Details Date Type Department Care Team (Late st Contact Info) Description 07/30/2018 7:12 PM CDT - 07/31/2018 12:02 AM CDT Emergency [facility] Emergency Department [address] [place] [address] Hailee Burris MD [address] [place] [phone] Urinary tract infection without hematuria, site unspecified (Primary Dx); Vaginal bleeding, abnormal Discharge Disposition: Discharge to home or self care Social History Tobacco Use Types Packs/Day Years Used Date Smoking Tobacco: Never Smokeless Tobacco: Never Comments No Sex and Gender Information Value Date Recorded Sex Assigned at Not on file Legal Sex Female 1:47 AM [facility] Gender Identity Not on file Sexual Orientation Not on file documented as of this encounter Last Filed Vital Signs Vital Sign Reading Time Taken Comments Blood Pressure 153/90 07/30/2018 11:45 PM CDT Pulse 73 07/30/2018 11:12 PM CDT Temperature 36.8 ??C (98.3 ??F) 07/30/2018 7:32 PM CD T Respiratory Rate 18 07/30/2018 9:45 PM CDT Oxygen Saturation 100% 07/30/2018 11:45 PM CDT Inhaled Oxygen Concentration - - Weight 81.6 kg (180 lb) 07/30/2018 7:32 PM CDT Height 172.7 cm (5' 8 ) 07/30/2018 7:32 PM CDT Body Mass Index 27.37 07/30/2018 7:32 PM CDT documented in this encounter Discharge Instructions * Discharge Instructions* Hailee Burris MD - 07/30/2018 11:42 PM CDT Bactrim DS one tab twice daily for 7 days. Ultram 50mg every 6 hours as needed for pain. See primary physician to have blood pressure rechecked this week. Return if worse. * Attachments The following attachments cannot be sent through Care Everywhere. * Bladder Infection, Female (Adult) (French) * Dysfunctional Uterine Bleeding (AfterCare(R) Instructions(ER/ED)) (French) documented in this encounter Medications at Time [...] Refills Last Filled Start Date End Date traMADol (ULTRAM) 50 mg tablet Take 1 tablet (50 mg total) by mouth every 6 (six) hours as needed for pain. 20 tablet 07/30/2018 02/16/2021 sulfamethoxazole-t rimethoprim (BACTRIM,SEPTRA) 800-160 mg per tablet Take 1 tablet by mouth 2 (two) times a day for 7 days. 14 tablet 07/30/2018 08/02/2018 documented in this encounter Discharge Disposition Disposition Code Departure Means Destination Discharge to home or self care documented in this encounter ED Notes * Hailee Burris MD - 07/30/2018 8:22 PM CDT HPI Chief Complaint Patient presents with ??? Abdominal Pain 8:22 PM Lorena Deshpande is a 27 y.o. female who presents to the ED for evaluation of intermittent suprapubic abdominal pain for a few weeks. Pt reports that she was seen at a clinic one month ago for evaluation of abdominal discomfort and unusually-colored discharge. She states that she was given Flagyl for possible bacterial infection during discharge. She states that she experienced abdominal discomfort after sexual intercourse today and noticed what appeared to be tissue come from her vagina. Denies fever, chills, nausea, emesis, diarrhea, and constipation. She does not believe she is as LMP was 4 days ago. LBM was today with no complications. She notes past history of hemorrhoids and denies any past abdominal surgeries. Patient History Patient Active Problem List Diagnosis Date Noted ??? Hypertensive emergency 08/01/2018 Past Medical History: Diagnosis Date ??? HX [...] cough, shortness of breath and wheezing. Cardiovascular: Negative for chest pain and palpitations. Gastrointestinal: Positive for abdominal pain. Negative for constipation, diarrhea, nausea and vomiting. Genitourinary: Positive for vaginal discharge. Negative for dysuria and frequency. Musculoskeletal: Negative for arthralgias, back pain, myalgias and neck pain. Skin: Negative for color change, pallor, rash and wound. Neurological: Negative for dizziness, syncope, weakness, light-headedness and headaches. All other systems reviewed and are negative. Physical Exam ED Triage Vitals Temp Pulse Resp BP SpO2 07/30/18193107/30/18193107/30/18 19307/30/18 19307/30/18 1931 36.8 ??C (98.3 ??F) 105 18 (!) 169/122 100 % Temp src Heart Rate Source Patient Position BP Location FiO2 (%) 07/30/18 19307/30/18 2312 07/30/185 07/30/182144 -- Oral Monitor Sitting Left arm Physical Exam Constitutional: She is oriented to person, place, and time. She appears well- developed and well-nourished. Alert; NAD HENT: Head: Normocephalic. Nose: Nose normal. Mouth/Throat: Oropharynx is clear and moist. Eyes: Pupils are equal, round, and reactive to light. Conjunctivae and EOM are normal. Neck: Normal range of motion. Neck supple. Cardiovascular: Normal rate, regular rhythm and normal heart sounds. Pulmonary/Chest: Effort normal and breath sounds normal. Abdominal: Soft. Bowel sounds are normal. Tenderness to palpation to right and left lower quadrant; no rebound or guarding noted; Bowel sounds present Genitourinary: Vaginal discharge found. Genitourinary Comments: Pelvic exam: Normal external genitalia. No Labial or vaginal lesions noted.There is a small amount of bloody discharge in vaginal vault. Cervix is non-erythematous and is irregular in shape consistent in LEEP procedure. There is some mild bilateral adnexal tenderness and uterine tenderness. No masses palpable. There is no cervical motion tenderness. Musculoskeletal: Normal range of motion. Neurological: She is alert and oriented to person, place, and time. Skin: Skin is warm and dry. Psychiatric: She has a normal mood and affect. Nursing note and vitals reviewed. BP 153/90 Pulse 73 Temp 36.8 ??C (98.3 ??F) (Oral) Resp 18 Ht 172.7 cm (5' 8 ) Wt 81.6 kg(180 lb) LMP 07/25/2018 SpO2 100% BMI 27.37 kg/m?? Labs Reviewed URINALYSIS AND REFLEX TO MICROSCOPIC AND CULTURE - Abnormal Result Value Color, ur Yellow Clarity, ur Cloudy (*) Specific gravity, ur 1.023 pH, urine 6.5 Protein, ur ql 1+ (*) Glucose, ur ql Negative Ketones, ur Negative Bilirubin, ur Negative Blood, ur 3+ (*) Urobilinogen, ur 1.0 Nitrite, ur Negative Leukocyte esterase, ur 2+ (*) Narrative: Urine pH is affected by diet, medications, systemic acid-base disturbances, and renal tubular function. pH may affect urinary stone formation. For example, urine pH below 6.0 may help reduce the tendency for calcium phosphate stones and pH greater than 6.0 may reduce the tendency for uric acid stone formation. Source: [facility] [place].Last revised 12-08-2017 CBC WITH AUTO DIFFERENTIAL - Abnormal WBC 9.7 Hgb 12.6 Hct 39.1 Plt 282 MPV 9.5 RBC 4.29 MCV 91.1 MCH 29.4 MCHC 32.2 (*) RDW CV 11.8 RDW SD 39.3 NRBC Abs 0.00 Narrative: DIFFERENTIAL AUTO - Abnormal Neutrophil absolute 5.5 Immature granulocyte absolute 0.0 Lymphocytes absolute 3.4 (*) Monocyte absolute 0.5 Eosinophils absolute 0.2 Basophils, abs 0.0 Neutrophils 56.3 Immature granulocytes 0.2 Lymphocytes 35.4 Monocytes 5.5 Eosinophils 2.2 Basophils 0.4 Narrative: URINALYSIS, MICROSCOPIC ONLY - Abnormal WBC, ur 11-20 (*) RBC, ur 6-10 (*) Epithelial cells, squamous, ur 21-50 (*) Bacteria, ur 2+ (*) Calcium oxalate crystals, ur 1+ (*) Hyaline casts, ur 11-20 (*) Narrative: TRICHOMONAS ANTIGEN DETECTION Report Value: Final Report: Negative for Trichomonas antigen Narrative: URINE CULTURE Report Value: Preliminary Report: Culture results pending. Narrative: Urine culture reflexed based upon urinalysis results. Testing performed by [facility] ([phone]) COMPREHENSIVE METABOLIC PANEL Sodium 139 Potassium, pl 3.5 Chloride 100 CO2 29 Anion Gap 10 BUN 9 Creatinine 0.86 Glucose 95 Calcium 9.1 Bilirubin, total 0.2 Protein, pl 7.2 Albumin 4.2 Alk phos 79 ALT 9 AST 15 Narrative: HCG, URINE, QUALITATIVE HCG, ur Negative Narrative: EGFR GFR >60 Narrative: CHLAMYDIA TRACHOMATIS/N. GONORRHOEAE, SWAB [facility] N. GONORRHOEAE NA AMP, SWAB CHLAMYDIA TRACHOMATIS BY NA AMP,SWAB No orders to display MDM MDM ED Course as of Aug 01 657 Time: 07/30 2022 Comment: Pre-hypertension/Hypertension: The patient has been informed that they may have pre-hypertension or Hypertension based on a blood pressure reading in the Emergency Department. I recommend that the patient call the primary care provider listed on their discharge instructions or a physician of their choice this week to arrange follow up for further evaluation of possible pre- hypertension or Hypertension. By: Liberty Quiñonez Urinary tract infection without hematuria, site unspecified Vaginal bleeding, abnormal Liberty Quiñonez scribed for Hailee Burris MD in the doctor's presence. I electronically signedthis note at 6:57 AM on 08/01/2018. I, Hailee Burris MD, have personally performed the services described in the documentation, reviewed the documentation, as recorded by the scribe in my presence, and it accurately and completely records my words and actions. Liberty Quiñonez 07/30/18 2241 Hailee Burris MD 08/01/18 0656 Hailee Burris MD 08/01/18 0700 * Carol Jorgensen RN - 07/30/2018 7:25 PM CDT 27 yr old arrives to the ED with complaints of lower abdominal pain. Pt states pain off and on for 2-3 weeks. Pt denies any nausea or vomiting. Pt reports noting small amount of blood with urine. Pt also reports pain after sexual intercourse. No fevers reported. documented in this encounter Plan of Treatment Not on file documented as of this encounter Procedures Procedure Name Priority Date/Time Associated Diagnosis Comments CHLAMYDIA TRACHOMATIS/N. GONORRHOEAE, SWAB [facility] Routine 07/30/2018 11:06 PM CDT N. GONORRHOEAE NA AMP, SWAB Routine 07/30/2018 11:06 PM CDT CHLAMYDIA TRACHOMATIS BY NA AMP,SWAB Routine 07/30/2018 11:06 PM CDT TRICHOMONAS ANTIGEN Routine 07/30/2018 1 1:06 PM CDT EGFR STAT 07/30/2018 8:39 PM CDT DIFFERENTIAL AUTO STAT 07/30/2018 8:3 9 PM CDT URINALYSIS AND REFLEX TO MICROSCOPIC AND CULTURE STAT 07/30/2018 8:39 PM CDT CBC WITH AUTO DIFFERENTIAL STAT 07/30/2018 8:39 PM CDT HCG, URINE, QUALITATIVE STAT 07/30/2018 8:39 PM CDT URINALYSIS, MICROSCOPIC ONLY STAT 07/30/2018 8:39 PM CDT URINE CULTURE STAT 07/30/2018 8:39 PM CDT COMPREHENSIVE METABOLIC PANEL STAT 07/30/2018 8:39 PM CDT documented in this encounter Results * Chlamydia trachomatis by NA Amp, swab (07/30/2018 11:06 PM CDT) C. trachomatis RNA Negative Negative SASHA BRYAN (MICHAEL) Comment: Interpretive Data This test has been developed to maximize the sensitivity of detection of infection while minimizing false positives, with the combined goals of enabling treatment of infection and interrupting the spread of infection, and is intended for medical purposes. Any result should be interpreted together with the clinical presentation and risk assessment, particularly the prevalence of infection in the patient's demographic group. ??Significant discrepancies should be evaluated by additional measures. Current Interpretive Data was last revised on 2016 Testing performed by: [facility], [address] [place] [address]., [id number] Swab 07/30/2018 11:0 6 PM CDT 08/01/2018 6:34 AM CDT Narrative SASHA BRYAN (MICHAEL) - 08/01/2018 10:31 AM CDT Hailee Burris MD LAB BODY FLUIDS AND STOOLS ORDERABLES Final Result SASHA MORELAND) 1 [facility] Department [place] [address] * N. Gonorrhoeae NA Amp, swab (07/30/2018 11:06 PM CDT) N. gonorrhoeae RNA Negative Negative SASHA MORELAND) Comment: Interpretive Data This test has been developed to maximize the sensitivity of detection of infection while minimizing false positives, with the combined goals of enabling treatment of infection and interrupting the spread of infection, and is intended for medical purposes. Any result should be interpreted together with the clinical presentation and risk assessment, particularly the prevalence of infection in the patient's demographic group. ??Significant discrepancies should be evaluated by additional measures. Current Interpretive Data was last revised on 2016 Testing performed by: [facility], [address] [place] [address], [place]., [address] Swab 07/30/2018 11:0 6 PM CDT 08/01/2018 6:34 AM CDT Narrative SASHA MORELAND) - 08/01/2018 10:31 AM CDT Hailee Burris MD LAB BODY FLUIDS AND STOOLS ORDERABLES Final Result Performing Organization Address City/[facility]/ZIP Co de Phone Number ITALOPRINCESS RANDI (MICHAEL) [address] [place] [address] * Trichomonas antigen detection Vaginal Vaginal (07/30/2018 11:06 PM CDT) Report Final Report: Negative for Trichomonas antigen SASHA BRYAN (MICHAEL) Vaginal (Vaginal) 07/30/2018 11:06 PM CDT 07/30/2018 11:18 PM CDT Narrative SASHA BRYAN (MICHAEL) - 07/30/2018 11:32 PM CDT us Hailee Burris MD LAB MICROBIOLOGY - GENERAL ORDERABLES Final Result Performing Organization Address [facility] Co de Phone Number SASHA BRYAN (CORWITH) [address] [place] [address] * Urine culture (07/30/2018 8:39 PM CDT) Report Final Report: Growth indicative of contamination with periurethral lorenzo. Please submit a new specimen with special attention given to the collection process and to prompt transport to the laboratory. SASHA BRYAN (MICHAEL) Comment:Testing performed by : [facility], [address] [place] [place]., [address] Organism GROWTH INDICATES CONTAM WITH PERIURETHRAL LORENZO. SASHA BRYAN (MICHAEL) Urine 07/30/2018 8:39 PM CDT 07/31/2018 12:32 AM CDT Narrative SASHA BRYAN (MICHAEL) - 08/01/2018 6:33 AM CDT Urine culture reflexed based upon urinalysis results. Testing performed by [facility] ([phone]) us Hailee Burris MD LAB MICROBIOLOGY - GENERAL ORDERABLES Final Result Performing Organization Address City/[facility]/ZIP Co de Phone Number SASHA BRYAN (MICHAEL) [address] [facility] [place] [address] * eGFR (07/30/2018 8:39 PM CDT) eGFR >60 mL/min/1.7 3 m2 SASHA BRYAN (CORWITH) Comment: Interpretive Data Reference Interval Normal ?>/= 90 mL/min/1.73m2 Mildly decreased* ? 60 - 89 mL/min/1.73m2 Mildly to moderately decreased ?45 - 59 mL/min/1.73m2 Moderately to severely decreased ??30 - 44 mL/min/1.73m2 Severely decreased ?15 - 29 mL/min/1.73m2 Kidney Failure ?< 15 ??mL/min/1.73m2 *Relative to young adult level If -Mauritian multiply value by 1.16. Estimated glomerular filtration [...] was last reviewed 2016. Blood specimen (specimen) 07/30/2018 8:39 PM CDT 07/30/2018 8:43 PM CDT Narrative SASHA BRYAN (MICHAEL) - 07/30/2018 9:09 PM CDT us Hailee Burris MD LAB BLOOD ORDERABLES Final Result SASHA BRYAN ([place]) [address] [facility] Department [place] [address] * (ABNORMAL) Urinalysis, microscopic only (07/30/2018 8:39 PM CDT) WBC, ur 11-20(A) 0 - 5 /HPF [facility] (MICHAEL) RBC, ur 6-10(A) 0 - 5 /HPF [facility] (MICHAEL) Epithelial cells, squamous, ur 21-50(A) 0 - 5 /HPF [facility] (MICHAEL) Comment:Suggestive of contam ination. Consider recollection by clean catch. Bacteria, ur 2+(A) [facility] (MICHAEL) Calcium oxalate crystals, ur 1+(A) [facility] (MICHAEL) Hyaline casts, ur 11-20(A) 0 - 10 /LPF [facility] (MICHAEL) Urine 07/30/2018 8:39 PM CDT 07/30/2018 8:42 PM CDT [facility]ative [facility] (MICHAEL) - 07/30/2018 9:16 PM CDT us Hailee Burris MD LAB URINE ORDERABLES Final Result [facility] (COR[place]) [address] [facility] Department [place] [address] * (ABNORMAL) Differential, auto (07/30/2018 8:39 PM CDT) Neutrophil abs 5.5 1.7 - 6.5 K/cumm [facility] (MICHAEL) Imm gran abs 0.0 0.0 - 0.1 K/cumm [facility] (MICHAEL) Lymphocyte abs 3.4(H) 0.8 - 3.3 K/cumm [facility] (MICHAEL) Monocyte abs 0.5 0.2 - 0.8 K/cumm [facility] (MICHAEL) Eosinophil abs 0.2 0.0 - 0.5 K/cumm [facility] (MICHAEL) Basophil abs 0.0 0.0 - 0.1 K/cumm [facility] (MICHAEL) Neutrophil pct 56.3 % [facility] (MICHAEL) Comment: Interpretive Data Percent cell count reference ranges are not reported, since discordance with absolute values may lead to misinterpretation of CBC data. Current Interpretive Data was last revised on 2018. Imm gran pct 0.2 % [facility] (MICHAEL) Comment: Interpretive Data Percent cell count reference ranges are not reported, since discordance with absolute values may lead to misinterpretation of CBC data. Current Interpretive Data was last revised on 2018. Lymphocyte pct 35.4 % [facility] (MICHAEL) Comment: Interpretive Data Percent cell count reference ranges are not reported, since discordance with absolute values may lead to misinterpretation of CBC data. Current Interpretive Data was last revised on 2018. Monocyte pct 5.5 % [facility] (MICHAEL) Comment: Interpretive Data Percent cell count reference ranges are not reported, since discordance with absolute values may lead to misinterpretation of CBC data. Current Interpretive Data was last revised on 2018. Eosinophil pct 2.2 % [facility] (MICHAEL) Comment: Interpretive Data Percent cell count reference ranges are not reported, since discordance with absolute values may lead to misinterpretation of CBC data. Current Interpretive Data was last revised on 2018. Basophil pct 0.4 % [facility] (MICHAEL) Comment: Interpretive Data Percent cell count reference ranges are not reported, since discordance with absolute values may lead to misinterpretation of CBC data. Current Interpretive Data was last revised on 2018. Blood specimen (specimen) 07/30/2018 8:39 PM CDT 07/30/2018 8:43 PM CDT Narrative [facility] BRYAN (MICHAEL) - 07/30/2018 8:45 PM CDT us Hailee Burris MD LAB BLOOD ORDERABLES Final Result [facility] BR[facility] (MICHAEL) [address] [facility] Department [place] [address] * hCG, urine, qualitative (07/30/2018 8:39 PM CDT) HCG, ur Negative Negative [facility] BR[facility] (MICHAEL) Urine 07/30/2018 8:39 PM CDT 07/30/2018 8:42 PM CDT Narrative [facility] BRYAN (MICHAEL) - 07/30/2018 9:16 PM CDT us Hailee Burris MD LAB URINE ORDERABLES Final Result Performing Organization Address City/[facility]/ZIP Co de Phone Number SASHA BRYAN (MICHAEL) [address] [facility] [employer] [place] [address] * (ABNORMAL) Urinalysis reflex to microscopic and culture Urine (07/30/2018 8:39 PM CDT) Color, ur Yellow Yellow [facility] (MICHAEL) Clarity, ur Cloudy(A) Clear [facility] (MICHAEL) Specific gravity, ur 1.023 1.010 - 1.025 [facility] (MICHAEL) pH, urine 6.5 [facility] (MICHAEL) Protein, ur ql 1+(A) Negative [facility] (MICHAEL) Glucose, ur ql Negative Negative [facility] (MICHAEL) Ketones, ur Negative Negative [facility] (MICHAEL) Bilirubin, ur Negative Negative [facility] (MICHAEL) Blood, ur 3+(A) Negative [facility] (MICHAEL) Urobilinogen, ur 1.0 mg/dL [facility] (MICHAEL) Nitrite, ur Negative Negative [facility] (MICHAEL) Leukocyte esterase, ur 2+(A) Negative [facility] (MICAHEL) Urine 07/30/2018 8:39 PM CDT 07/30/2018 8:42 PM CDT Narrative [facility] (MICHAEL) - 07/30/2018 9:16 PM CDT ?? Urine pH is affected by diet, medications, systemic acid-base disturbances, and renal tubular function. ??pH may affect urinary stone formation. ??For example, urine pH below 6.0 may help reduce the tendency for calcium phosphate stones and pH greater than 6.0 may reduce the tendency for uric acid stone formation. Source: [facility] [place]. Last revised 12-08-2017 us Hailee Burris MD LAB MICROBIOLOGY - GENERAL ORDERABLES Final Result Performing Organization Address City/[facility]/ZIP Co de Phone Number SASHA BRYAN (MICHAEL) [address] [facility] Department [place] [address] * Comprehensive metabolic panel (07/30/2018 8:39 PM CDT) Sodium 139 135 - 145 mmol/L [facility] (MICHAEL) Potassium, pl 3.5 3.3 - 4.9 mmol/L [facility] (MICHAEL) Chloride 100 97 - 110 mmol/L [facility] (MICHAEL) CO2 29 22 - 32 mmol/L [facility] (MICHAEL) Anion gap 10 2 - 15 mmol/L [facility] (MICHAEL) BUN 9 8 - 25 mg/dL [facility] (MICHAEL) Creatinine 0.86 0.60 - 1.10 mg/dL [facility] (MICHAEL) Glucose 95 70 - 199 mg/dL [facility] (MICHAEL) [...] interpretive data was last revised 2017. Calcium 9.1 8.5 - 10.3 mg/dL [facility] (MICHAEL) Bilirubin, total 0.2 0.1 - 1.2 mg/dL [facility] (MICHAEL) Protein, pl 7.2 6.5 - 8.5 g/dL [facility] (MICHAEL) Albumin 4.2 3.5 - 5.0 g/dL [facility] (MICHAEL) Alk phos 79 40 - 130 Units/L [facility] (MICHAEL) ALT 9 7 - 45 Units/L [facility] (MICHAEL) AST 15 10 - 45 Units/L [facility] (MICHAEL) Blood specimen (specimen) 07/30/2018 8:39 PM CDT 07/30/2018 8:43 PM CDT Narrative [facility] (MICHAEL) - 07/30/2018 9:09 PM CDT us Hailee Burris MD LAB BLOOD ORDERABLES Final Result [facility] (MICHAEL) [address] [facility] [employer] [place] [address] * (ABNORMAL) CBC with auto differential (07/30/2018 8:39 PM CDT) WBC 9.7 3.8 - 9.9 K/cumm [facility] (MICHAEL) Hgb 12.6 11.9 - 15.5 g/dL [facility] (MICHAEL) Hct 39.1 35.6 - 45.5 % [facility] (MICHAEL) Plt 282 150 - 400 K/cumm [facility] (MICHAEL) MPV 9.5 9.1 - 12.3 fL [facility] (MICHAEL) RBC 4.29 3.90 - 5.20 M/cumm [facility] (MICHAEL) MCV 91.1 81.3 - 96.4 fL [facility] (MICHAEL) MCH 29.4 27.1 - 33.3 pg [facility] (MICHAEL) MCHC 32.2(L) 32.3 - 35.7 g/dL [facility] (MICHAEL) RDW CV 11.8 11.1 - 14.9 % [facility] (MICHAEL) RDW SD 39.3 35.7 - 48.1 fL [facility] (MICHAEL) NRBC abs 0.00 0.00 - 0.01 K/cumm [facility] (MICHAEL) Blood specimen (specimen) 07/30/2018 8:39 PM CDT 07/30/2018 8:43 PM CDT Narrative [facility] (MICHAEL) - 07/30/2018 8:45 PM CDT us Hailee Burris MD LAB BLOOD ORDERABLES Final Result [facility] BRYAN (MICHAEL) [address] [facility] [place] [address] documented in this encounter Visit Diagnoses Diagnosis Urinary tract infection without hematuria, site unspecified- Primary Vaginal bleeding, abnormal Other specified noninflammatory disorder of vagina documented in this encounter Administered Medications Inactive Administered Medications - up to 3 most recent administrations Medication Order MAR Action Action Date Dose Rate Site cefTRIAXone (ROCEPHIN) sterile water (premix) 1,000 mg 1,000 mg, intravenous, at 120 mL/hr, Administer over 5 Minutes, Once, On 07/30/18 at 2239, For 1 dose, Indications: Urinary Tract/Genitourinary InfectionIndications:Urinar y Tract/Genitourinary Infection New Bag 07/30/2018 11:07 PM CDT 1,000 mg 120 mL/hr ketorolac (TORADOL) injection 30 mg 30 mg, intravenous, Once, On 07/30/18 at 2201, For 1 dose Given 07/30/2018 10:13 PM CDT 30 mg morphine injection 4 mg 4 mg, intravenous, Once, On 07/30/18 at 2020, For 1 dose Given 07/30/2018 8:46 PM CDT 4 mg morphine injection 4 mg 4 mg, intravenous, Once, On 07/30/18 at 2201, For 1 dose Given 07/30/2018 10:12 PM CDT 4 mg ondansetron (ZOFRAN) injection 4 mg 4 mg, intravenous, Once, On 07/30/18 at 2020, For 1 dose, Indications: Nausea, VomitingIndications:Nausea, Vomiting Given 07/30/2018 8:45 PM CDT 4 mg sodium chloride 0.9% bolus 1,000 mL 1,000 mL, intravenous, at 1,000 mL/hr, Administer over 1 Hours, Once, On 07/30/18 at 2020, For 1 dose New Bag 07/30/2018 8:45 PM CDT 1,000 mL 1000 mL/hr documented in this encounter Active and Recently Administered Medications Times are shown in CDT. Scheduled Medication Order 07/29/2018 07/30/2018 07/31/2018 cefTRIAXone (ROCEPHIN) sterile water (premix) 1,000 mg (COMPLETED) 1,000 mg, intravenous, at 120 mL/hr, Administer over 5 Minutes, Once, On 07/30/18 at 2239, For 1 dose, Indications: Urinary Tract/Genitourinary Infection 2307 (New Bag - Provider: Carol Jorgensen RN)2312 (Due: Stopped - Provider: Carol Jorgensen RN) 0002 (Stopped - Provider: Carolyn Varela RN) ketorolac (TORADOL) injection 30 mg (COMPLETED) 30 mg, intravenous, Once, On 07/30/18 at 2201, For 1 dose 2212 (Given - Provider: Carol Jorgensen RN) morphine injection 4 mg (COMPLETED) 4 mg, intravenous, Once, On 07/30/18 at 2020, For 1 dose 2045 (Given - Provider: Carol Jorgensen RN) morphine injection 4 mg (COMPLETED) 4 mg, intravenous, Once, On 07/30/18 at 220, For 1 dose 2211 (Given - Provider: Carol Jorgensen RN) ondansetron (ZOFRAN) injection 4 mg (COMPLETED) 4 mg, intravenous, Once, On 07/30/18 at 2019, For 1 dose, Indications: Nausea, Vomiting 2044 (Given - Provider: Carol Jorgensen RN) sodium chloride 0.9% bolus 1,000 mL (COMPLETED) 1,000 mL, intravenous, at 1,000 mL/hr, Administer over 1 Hours, Once, On 07/30/18 at 2019, For 1 dose 2044 (New Bag - Provider: Carol Jorgensen RN)2211 (Stopped - Provider: Carol Jorgensen RN) documented in this encounter Orders Nursing Count Last Ordered Date First Orde red Date PROVIDE EQUIPMENT / SUPPLIES AT BEDSIDE 1 0 07/30/2018 IV Count Last Ordered Date First Orde red Date INSERT PERIPHERAL IV 1 07/30/2018 documented in this encounter Additional Health Concerns Infection Onset Date Last Indicated Resolved Time MRSA Comment:Backloaded September 16, 2011 05/28/2011 05/28/201106/28 5:00 AM CDT documented as of this encounter Care Teams Manager Strategic Development Relationship Specialty Start Date End Date Shante Thomas MD PCP - General 07/30/18 10/14/18 documented as of this encounter
--- OUTSIDE RECORDS SUMMARY | 2024-11-30 00:28 | XMS_ITS | Encounter Summary ---
Author Organization [facility] Healthcare Address [address] [place] [address] Care Team Providers Care Waterproofing Supervisor Name Role Phone Mayela Thomas MD Primary Care Provider Encounter Details Date Type Department Care Team (Late st Contact Info) Description 02/24/2016 9:41 AM CDT - 02/24/2016 11:21 AM CDT Hospital Encounter [facility] Hailee Brasher MD [address] [place], [place] [address] [address] Other specified disorders of teeth and supporting structures Social History Tobacco Use Types Packs/Day Years Used Date Smoking Tobacco: Never Assessed Comments Unknown Sex and Gender Information Value Date Recorded Sex Assigned at Not on file Legal Sex Female 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 Gender Identity Not on file Sexual Orientation Not on file documented as of this encounter Plan of Treatment Not on file documented as of this encounter Visit Diagnoses Diagnosis Other specified disorders of teeth and supporting structures documented in this encounter Additional Health Concerns Infection Onset Date Last Indicated Resolved Time MRSA Comment:Backloaded September 16, 2011 05/28/2011 05/28/201106/28 5:00 AM CDT documented as of this encounter Care Teams Waterproofing Supervisor Relationship Specialty Start Date End Date Mayela Thomas MD [address] [place] [address] PCP - General 09/06/15 07/29/18 documented as of this encounter
--- OUTSIDE RECORDS SUMMARY | 2024-11-30 00:28 | XMS_ITS | Encounter Summary ---
Author Organization [facility] Healthcare Address [address] [place] [address] Care Team Providers Care Medical And Health Services Manager Name Role Phone Mayela Thomas MD Primary Care Provider [phone] Encounter Details Date Type Department Care Team (Late st Contact Info) Description 09/06/2015 8:25 PM CDT - 09/06/2015 11:59 PM CDT Hospital Encounter [facility] John Barrera MD [address] [facility] [address] [place] [address] Viral infection Social History Tobacco Use Types Packs/Day Years Used Date Smoking Tobacco: Never Assessed Comments Unknown Sex and Gender Information Value Date Recorded Sex Assigned at Not on file 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 Gender Identity Not on file Sexual Orientation Not on file documented as of this encounter Plan of Treatment Not on file documented as of this encounter Procedures Procedure Name Priority Date/Time Associated Diagnosis Comments GROUP A STREP, RAPID SCREEN, CDR Routine 09/06/2015 8:25 AM CDT DISCHARGE LABORATORY CUMULATIVE REPORT 09/06/2015 documented in this encounter Results * Group A strep, rapid screen (09/06/2015 8:25 AM CDT) Throat (Unknown) 09/06/2015 8:25 AM CDT Narrative HISTORICAL RESULTS - 09/09/2015 5:31 AM CDT Negative for Group A Streptococci us Historical Provider LAB MICROBIOLOGY - GENERA L ORDERABLES Final Result HISTORICAL RESULTS * DISCHARGE LABORATORY CUMULATIVE REPORT (09/06/2015) Narrative 09/06/2015 Ordered by an unspecified provider. us Historical Provider LAB BLOOD ORDERABLES Ruby l Result documented in this encounter Visit Diagnoses Diagnosis Viral infection documented in this encounter Additional Health Concerns Infection Onset Date Last Indicated Resolved Time MRSA Comment:Backloaded September 16, 2011 05/28/2011 05/28/201106/28 5:00 AM CDT documented as of this encounter Care Teams Medical And Health Services Manager Relationship Specialty Start Date End Date Mayela Thomas MD [address] [place] [address] PCP - General 09/06/15 07/29/18 documented as of this encounter
--- OUTSIDE RECORDS SUMMARY | 2024-11-30 00:28 | XMS_ITS | Encounter Summary ---
Author Organization [facility] Address [address] [facility] [facility] [address] [place] [address] Care Team Providers Care Loft Worker Pile Driving Name Role Phone Shante Thomas MD Primary Care Provider [phone] Reason for Visit * Reason Comments Hospital Follow Up Headaches and numbne ss and tingling in feet Encounter Details Date Type Department Care Team (Late st Contact Info) Description 08/09/2018 9:00 AM CDT Office Visit [facility] [address] [place] [address] Mee See, EL [address] [address] Chronic migraine without aura without status migrainosus, not intractable (Primary Dx); Secondary hypertension; Paresthesia of skin Social History Tobacco Use Types Packs/Day Years Used Date Smoking Tobacco: Never Smokeless Tobacco: Never Alcohol Use Standard Drinks/Week Comments Yes 0 (1 standard drink = 0.6 oz pur e alcohol) Comments No Sex and Gender Information Value Date Recorded Sex Assigned at Not on file Legal Sex Female 1:47 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 9 tablet 11 08/09/2018 8 documented in this encounter Progress Notes * Mee See NP - 08/09/2018 9:00 AM CDT Lorena Deshpande is a 27 y.o. female presents to the clinic for a follow up. HPI 1. Pt was hospitalized for acute HTN and also had headache episode. She was discharged home with topiramate 50mg BID. She has been taking them daily without skipping. She tolerated the medication without side effects. She additionally reports tingling numbness in her all extremities that's been going on for a long time but has been worsening. Her previous PCP suspected that she may had a Carpal tunnel long time ago. She also has hx of gestational diabetes but has not been on any medication for that. The sensation in her feet is like someone is burning he toes. She has tried gabapentin in the past, but she could not tolerate it. Review of Systems Constitutional: Negative. HENT: Negative. Respiratory: Negative. Cardiovascular: Negative. Gastrointestinal: Negative. Genitourinary: Negative. Skin: Negative. Vitals: 08/09/18 0847 BP: 127/78 Pulse: 87 Weight: 79.3 kg (174 lb 12.8 oz) Height: 170.2 cm (5' 7 ) Physical Exam Constitutional: Appears well-developed and well-nourished, NAD. HENT: Head: Normocephalic. Eyes: Pupils are equal, round, and reactive to light. Cardiovascular: Normal rate and regular rhythm. Pulmonary/Chest: Effort normal and breath sounds normal. Abdominal: Normal appearance and bowel sounds are normal. Skin: Skin is warm and intact. Psychiatric: Normal mood and affect. Neurological: 1) [...] 4) Sensory: Intact to light touch symmetrically but decreased sensation in her bilateral toes. 5) Coordination: finger to nose normal 6) Gait: normal Assessment and Plan 1. Chronic migraine without aura without status migrainosus, not intractable Continue topiramate 50mg BID Will add sumatriptan 100mg q2h PRN. 2. Secondary hypertension Continue amlodipine. She is to see her PCP for further follow up. 3. Paresthesia of skin. 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 Will try lyrica 50mg TID as trial for now. Will follow up in 4 weeks. documented in this encounter Plan of Treatment Not on file documented as of this encounter Visit Diagnoses Diagnosis Chronic migraine without aura without status migrainosus, not intractable- Primary Secondary hypertension Other secondary hypertension, unspecified Paresthesia of skin documented in this encounter Additional Health Concerns Infection Onset Date Last Indicated Resolved Time MRSA Comment:Backloaded September 16, 2011 05/28/2011 05/28/201106/28 5:00 AM CDT documented as of this encounter Care Teams Loft Worker Pile Driving Relationship Specialty Start Date End Date Shante Thomas MD PCP - General 07/30/18 10/14/18 documented as of this encounter
--- OUTSIDE RECORDS SUMMARY | 2024-11-30 00:28 | XMS_ITS | Encounter Summary ---
Author Organization [facility] Healthcare Address [address] [place] [address] Care Team Providers Care Purchasing Contracting Clerk Name Role Phone Mayela Thomas MD Primary Care Provider [phone] Encounter Details Date Type Department Care Team (Latest Contact Info) Description 02/12/2015 5:37 PM CDT - 02/12/2015 10:03 PM CDT Hospital Encounter [facility] Dago Sheppard MD [address] [place] [id number] Other and unspecified noninfectious gastroenteritis and colitis; Urinary tract infection Social History Tobacco Use Types Packs/Day Years Used Date Smoking Tobacco: Never Assessed Comments Unknown Sex and Gender Information Value Date Recorded Sex Assigned at Not on file 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 Gender Identity Not on file Sexual Orientation Not on file documented as of this encounter Plan of Treatment Not on file documented as of this encounter Procedures Procedure Name Priority Date/Time Associated Diagnosis Comments URINE MICROSCOPY Routine 02/12/2015 7:35 PM CDT URINALYSIS Routine 02/12/2015 7:35 PM CDT SERUM BASIC METABOLIC PANEL Routine 02/12/2015 6:32 PM CDT BLOOD WBC CELL MORPHOLOGIC EXAM, AUTO Routine 02/12/2015 6:32 PM CDT BLOOD CELL COUNT (CBC) Routine 02/12/2015 6:32 PM CDT SERUM CHORIONIC GONADOTROPIN (HCG), QUANTITATIVE Routine 02/12/2015 1:32 PM CDT DISCHARGE LABORATORY CUMULATIVE REPORT Routine 02/12/2015 12:00 AM CDT documented in this encounter Results * (ABNORMAL) Urinalysis (02/12/2015 7:35 PM CDT) Color, ur YELLOW YELLOW HISTORICAL RESULTS Clarity, ur CLOUDY(A) CLEAR HISTORIC AL RESULTS Specific gravity, ur >1.030 1.003 - 1.030 gu HISTORICAL RESULTS Leukocyte esterase, ur Negative NEGATIVE HISTORICAL RESULTS Nitrites, ur Negative NEGATIVE HISTORI IBETH RESULTS pH, ur 6.0 6.0 HISTORICAL RESULTS Protein, ur Trace NEGATIVE HISTORIC AL RESULTS Glucose, ur Negative NEGATIVE HISTORIC AL RESULTS Ketones, ur 15(A) NEGATIVE HISTORIC AL RESULTS Urobilinogen, quant, ur 0.2 0.2 - 1.0 mg/dl HISTORICAL RESULTS Bilirubin, ur Negative NEGATIVE HISTOR ICAL RESULTS U Blood Negative NEGATIVE HISTORICAL RESULTS Urine 02/12/2015 7:35 PM CDT Historical Provider LAB BLOOD ORDERABLES Ruby l Result Performing Organization Address [facility] Phone Number HISTORICAL RESULTS * (ABNORMAL) Urine microscopy (02/12/2015 7:35 PM CDT) WBC, ur 2 - 5(A) 0 - 2 /hpf HISTORICA L RESULTS RBC, ur 5 - 10(A) 0 - 5 /hpf HISTORICA L RESULTS Epithelial cells, ur 5 - 10(A) 0 - 2 /hpf HISTORICAL RESULTS Bacteria, ur 1+(A) NEGATIVE /hpf HISTORICAL RESULTS Hyaline casts 10 - 30(A) 0 - 4 /lpf HIST ORICAL RESULTS Crystals, ur Negative NEGATIVE HISTORI IBETH RESULTS Yeast, ur Negative NEGATIVE HISTORICAL RESULTS Pathological casts, ur Negative NEGATIVE HISTORICAL RESULTS Urine 02/12/2015 7:35 PM CDT Historical Provider LAB BLOOD ORDERABLES Ruby l Result Performing Organization Address [facility] Phone Number HISTORICAL RESULTS * (ABNORMAL) Serum basic metabolic panel (02/12/2015 6:32 PM CDT) BUN 10.7 8.0 - 25.0 mg/dl HISTORICAL RESULTS Sodium 136 135 - 145 mmol/L HISTORICAL RESULTS Potassium, sr 3.8 3.5 - 5.1 mmol/L HISTORICAL RESULTS Chloride 101 97 - 110 mmol/L HISTORICAL RESULTS CO2 22 22 - 32 mmol/L HISTORICAL RESULTS Glucose 125 70 - 199 mg/dl HISTORICAL RESULTS Comment: [...] RESULTS Comment: eGFR: >70 ml/min/1.73sq.m if non -Chadian. eGFR: >70 ml/min/1.73sq.m if -Chadian. AVE GFR for 20-29 yr. age group: ??116 ml/min/1.73sq.m Calculated using the MDRD Equation BUN/creat ratio 15 10 - 20 HIST ORICAL RESULTS A. gap 17(H) 8 - 16 mmol/L HISTORICAL RESULTS Osmo, calc 273(L) 275 - 295 mOsm/kg HISTORICAL RESULTS Calcium 8.8 8.6 - 10.2 mg/dl HISTORICAL RESULTS Serum 02/12/2015 6:32 PM CDT us Historical Provider LAB BLOOD ORDERABLES Ruby murphy Result HISTORICAL RESULTS * (ABNORMAL) Blood cell count (CBC) (02/12/2015 6:32 PM CDT) WBC 15.8(H) 4.0 - 10.5 K/cumm HISTORICAL RESULTS RBC 4.35 4.20 - 5.40 M/cumm HISTORICAL RESULTS Hgb 12.7 12.0 - 16.0 g/dl HISTORICAL RESULTS Hct 39.5 37.0 - 47.0 % HISTORICAL RESULTS MCV 90.8 77.0 - 97.0 fl HISTORICAL RESULTS MCH 29.2 23.0 - 34.0 pg HISTORICAL RESULTS MCHC 32.2 32.0 - 36.0 g/dl HISTORICAL RESULTS Rdw 12.5 11.5 - 14.5 % HISTORICAL RESULTS Platelets 238 150 - 400 K/cumm HISTORICAL RESULTS MPV 10.0 7.4 - 10.4 fl HISTORICAL RESULTS Blood specimen (specimen) 02/12/2015 6:32 PM CDT Historical Provider LAB BLOOD ORDERABLES Ruby murphy Result HISTORICAL RESULTS * (ABNORMAL) Blood WBC cell morphologic exam, auto (02/12/2015 6:32 PM CDT) Pathologist [facility] Lymphocytes 2.9(L) 25.0 - 33.0 % HISTORICAL RESULTS Monos 5.9 0.0 - 13.0 % HISTORICAL RESULTS Neutrophils 90.6(H) 54.0 - 69.0 % HISTORICAL RESULTS Eosinophils 0.0 0.0 - 10.0 % HISTORICAL RESULTS Basophils 0.1 0.0 - 1.0 % HISTORICAL RESULTS Immature granulocytes 0.5 0.0 - 1.0 % HISTORICAL RESULTS Lymphocytes, abs 0.5(L) 1.2 - 3.4 K/cumm HISTORICAL RESULTS Monocytes, absolute 0.9(L) 1.1 - 1.9 K/cumm HISTORICAL RESULTS Neutrophils, abs 14.4(H) 1.4 - 6.5 K/cumm HISTORICAL RESULTS Eosinophils, abs 0.0 0.0 - 0.7 cells/cum m HISTORICAL RESULTS Basophils, abs 0.0 0.0 - 0.2 K/cumm HISTORICAL RESULTS Immature granulocyte, abs 0.1(H) 0.0 - 0.0 K/cumm HISTORICAL RESULTS Blood specimen (specimen) 02/12/2015 6:32 PM CDT Historical Provider LAB BLOOD ORDERABLES Ruby murphy Result HISTORICAL RESULTS * Serum chorionic gonadotropin (HCG), quantitative (02/12/2015 1:32 PM CDT) Pathologist [facility] HCG, quant <5.0 0.0 - 5.0 IUnits/L HISTORICAL RESULTS Serum 02/12/2015 1:32 PM CDT Narrative HISTORICAL RESULTS - 02/12/2015 2:31 PM CDT NEGATIVE: ??0-5 MIU/ML BORDERLINE: ??6-25 MIU/ML POSITIVE: ??GREATER THAN 25 MIU/ML APPROX GEST AGE ?APPROX HCG CONCENTRATION ?3-4 WEEKS ?9-130 ?4-5 WEEKS ? 75-2600 ?5-6 WEEKS ?850-20,800 ?6-7 WEEKS ? 4000-100,200 ?7-12 WEEKS ? 72875-900,000 ?? 12-16 WEEKS ? 19219-328,000 ?? 16-29 WEEKS ?1400-53,000 ?? 29-41 WEEKS ? 900-60,000 us Historical Provider MD LAB BLOOD ORDERABLES Ruby jeffrey Result HISTORICAL RESULTS * Discharge Laboratory Cumulative Report (02/12/2015 12:00 AM CDT) 02/12/2015 Narrative HISTORICAL RESULTS - 02/13/2015 12:41 AM CDT Patient No: [id number] ? [facility] Patient Name: AIDA DESHPANDE ?[facility] Age: 24 YRS ?: 1990 ?Sex:F ?[address] )[phone] ?? Adm Dt: 02/12/2015 ?[place], [place] ??[address] Created: 02/13/2015 ??0041 ?? Pt. Type: E ? Discharge Dt: 02/12/2015 ? Pathologists: Aida Pereyra MD Admit Dr. [address] Dr: ? BLOOD CELL COUNTS ?Collection Date: ?02/12/15 ?Collection Time: ?1832 ? Ref Range: ?? Units: [4.00-10.50] /CMM ? WBC X 10^3 ? 15.83 H [4.20-5.40] ??/CMM ? RBC X 10^6 ?4.35 [12.0-16.0] ??G/DL ? HGB ? 12.7 [37.0-47.0] ??% ?HCT ? 39.5 [77.0-97.0] ??FL ? MCV ? 90.8 [23.0-34.0] ??PG ? MCH ? 29.2 [32.0-36.0] ??% ?MCHC ?32.2 [11.5-14.5] ??% ?RDW ? 12.5 [150-400] ?? /CMM ? PLT X 10^3 ? 238 ?BLOOD CELL DIFFERENTIAL ?Collection Date: ?03/18/15 ?Collection Time: ?1832 ? Ref Range: ?? Units: [54.0-69.0] ??% ?NEUTROPHILS ? 90.6 H [25.0-33.0] ??% ?LYMPHOCYTES ?2.9 L [0.0-13.0] ??% ?MONOCYTES ?5.9 [0.0-10.0] ??% ?EOSINOPHILS ?0.0 [0.0-1.0] ?? % ?BASOPHILS ?0.1 ? /CMM ? A LYMPHOCYTE ? 0.5 L [0.0-1.0] ?? % ?IMM GRAN % ? 0.5 [0.00-0.02] ??/CMM ? A IMM GRAN ?0.08 H [1.1-1.9] ?? /CMM ? A MONOCYTE ? 0.9 L [1.4-6.5] ?? /CMM ? A NEUTROPHIL ?14.4 H [0.0-0.7] ?? /CMM ? A EOSINOPHIL ? 0.0 [0.0-0.2] ?? /CMM ? A BASOPHIL ? 0.0 Footnotes and Symbols: L = Low, H = High ?? CONTINUED ?Page: ?? 1 Patient No: [id number] ? [facility] Patient Name: AIDA DESHPANDE ?[facility] Age: 24 YRS ?: 1990 ?Sex:F ?[address] )[phone] ?? Adm Dt: 02/12/2015 ?[place] ??[address] Created: 02/13/2015 ??0041 ?? Pt. Type: E ? Discharge Dt: 02/12/2015 ? Pathologists: Aida Pereyra MD Admit Dr. [address] Dr: ? GENERAL CHEMISTRY ?Collection Date: ?02/12/15 ?Collection Time: ?1832 ? Ref Range: ?? Units: [135-145] ?? MMOL/L ? SODIUM ? 136 [3.5-5.1] ?? MMOL/L ? POTASSIUM ?3.8 [97.0-110.0] MMOL/L ? CHLORIDE ? 101.0 [22.0-32.0] ??MMOL/L ? TOTAL CO2 ? 22.2 ?? [8-16] ?MMOL/L ? ANION GAP ? 17 H ??[70-199] ?? MG/DL ?GLUCOSE ?125 f [275-295] ?? MOSM/K ? CALCULATED OSMO ?273 L [8.6-10.2] ??MG/DL ?CALCIUM ?8.8 [8.0-25.0] ??MG/DL ?BUN ? 10.7 ??[10-20] ? B/C RATIO ? 15 [0.60-1.10] ??MG/DL ?CREATININE ?0.72 f ?02/12/15 1832 eGFR: >70 ml/min/1.73sq.m if non -Chadian. eGFR: >70 ml/min/1.73sq.m if -Chadian. AVE GFR for 20-29 yr. age group: ??116 ml/min/1.73sq.m Calculated using the MDRD Equation FOOTNOTE ADDED ON ?? 02/12/15 ?? AT 1900 BY 999 Footnotes and Symbols: L = Low, H = High, f = Footnote GLUCOSE (01/08/15 -- Current) [...] ?? CONTINUED ?Page: ?? 2 Patient No: [id number] ? [facility] Patient Name: MARK, AIDA S ?[facility] Age: 24 YRS ?: 1990 ?Sex:F ?[address] )[phone] ?? Adm Dt: 02/12/2015 ?[place], [place] ??[address] Created: 02/13/2015 ??0041 ?? Pt. Type: E ? Discharge Dt: 02/12/2015 ? Pathologists: Aida Pereyra MD Admit Dr. [address] Dr: ? HORMONES ?Collection Date: ?03/18/15 ?Collection Time: ?1832 ? Ref Range: ?? Units: ?? [0-5] ? mIU/ml ? BETA HCG QUANT ?<5 f ?URINALYSIS ?Collection Date: ?03/18/15 ?Collection Time: ?1935 ? Ref Range: ?? Units: [YELLOW] ? U COLOR ? YELLOW ??[CLEAR] ? U APPEARANCE ?CLOUDY * [1.003-1.030] ? U SPEC GRAVITY ?>1.030 [NEGATIVE] ?U LEUKO ESTRASE ? NEGATIVE [NEGATIVE] ?U NITRITE ? NEGATIVE ?? [6.0] ?U PH ? 6.0 [NEGATIVE] ?U PROTEIN ?TRACE [NEGATIVE] ?U GLUCOSE ? NEGATIVE Footnotes and Symbols: * = Abnormal, f = Footnote BETA HCG QUANT (01/05/15 -- Current) NEGATIVE: ??0-5 MIU/ML BORDERLINE: ??6-25 MIU/ML POSITIVE: ??GREATER THAN 25 MIU/ML APPROX GEST AGE ?APPROX HCG CONCENTRATION ?3-4 WEEKS ?9-130 ?4-5 WEEKS ? 75-2600 ?5-6 WEEKS ?850-20,800 ?6-7 WEEKS ? 4000-100,200 ?7-12 WEEKS ? 62251-702,000 ?? 12-16 WEEKS ? 78878-685,000 ?? 16-29 WEEKS ?1400-53,000 ?? 29-41 WEEKS ? 900-60,000 ?? CONTINUED ?Page: ?? 3 Patient No: [id number] ? [facility] Patient Name: AIDA DESHPANDE ?[facility] Age: 24 YRS ?: 1990 ?Sex:F ?[address] )[phone] ?? Adm Dt: 02/12/2015 ?[place] ??[address] Created: 02/13/2015 ??0041 ?? Pt. Type: E ? Discharge Dt: 02/12/2015 ? Pathologists: Aida Badillo Dr: ?URINALYSIS ?Collection Date: ?02/12/15 ?Collection Time: ?193 ? Ref Range: ?? Units: [NEGATIVE] ?U KETONES ? 15 * [0.2- 1.0] ?UROBILINOGEN ? 0.2 [NEGATIVE] ?U BILIRUBIN ? NEGATIVE [NEGATIVE] ?U BLOOD ? NEGATIVE ?? [0-2] ?U WBC ?2-5 * ?? [0-5] ?U RBC ? 5-10 * ?? [0-2] ?U EPI CELLS ? 5-10 * [NEGATIVE] ?U BACTERIA ?1+ * ?U YEASTS ?NEGATIVE ?? [0-4] ?U HYALINE CASTS ?10-30 * [NEGATIVE] ?U CRYSTALS ?NEGATIVE [NEGATIVE] ?U PATH CASTS ?NEGATIVE Footnotes and Symbols: * = Abnormal ?? END OF CHART ? Page: ?? 4 us Historical Provider LAB BLOOD ORDERABLES Ruby murphy Result HISTORICAL RESULTS documented in this encounter Visit Diagnoses Diagnosis Other and unspecified noninfectious gastroenteritis and colitis Urinary tract infection Urinary tract infection, site not specified documented in this encounter Additional Health Concerns Infection Onset Date Last Indicated Resolved Time MRSA Comment:Backloaded September 16, 2011 05/28/2011 05/28/201106/28 5:00 AM CDT documented as of this encounter Care Teams Purchasing Contracting Clerk Relationship Specialty Start Date End Date Mayela Thomas MD [address] [place] [address] PCP - General 06/01/11 09/05/15 documented as of this encounter
--- OUTSIDE RECORDS SUMMARY | 2024-11-30 00:28 | XMS_ITS | Encounter Summary ---
Author Organization [facility] Healthcare Address [address] [place] [address] Care Team Providers Care Doubler Helper Name Role Phone Mayela Thomas MD Primary Care Provider [phone] Encounter Details Date Type Department Care Team (Late st Contact Info) Description 12/29/2016 6:43 AM COUNSELOR/ART THERAPIST - 12/29/2016 8:15 AM COUNSELOR/ART THERAPIST Hospital Encounter [facility] Richy Martines MD [address] [place] [address] DR CORMIER [address] [id number] Encounter for supervision of normal Social History Tobacco Use Types Packs/Day Years Used Date Smoking Tobacco: Never Assessed Comments Unknown Sex and Gender Information Value Date Recorded Sex Assigned at Not on file Legal Sex Female 1:47 AM COUNSELOR/ART THERAPIST Gender Identity Not on file Sexual Orientation Not on file documented as of this encounter H&P Notes * ProviderEsther MD - 12/29/2016 8:15 AM CST Triage Record Datetime Report Generated by LAMONT: 12/29/2016 21:00 Patient Name: AIDA DESHPANDE : 1990 Datetime: 12/29/2016 07:00 Admission Information Arrival Date/Time: 12/29/2016 07:00 (12/29/2016 07:00/Esther Gomes RN) Method of arrival: Ambulatory (12/29/2016 07:00/Esther Gomes RN) Admitted From: Home (12/29/2016 07:00/Esther Gomes RN) Provider: arsenio (12/29/2016 07:00/Esther Gomes RN) Movement: Present (12/29/2016 07:00/Esther Gomes RN) Contractions: Denies/Absent (12/29/2016 07:00/Esther Gomes RN) Rupture of membrane: Unsure (12/29/2016 07:00/Esther Gomes RN) Recent Sexual [place]: Yes (12/29/2016 07:00/Esther Gomes RN) Vaginal discharge: Denies (12/29/2016 07:00/Esther Gomes RN) Abdominal Trauma: Not Applicable (12/29/2016 07:00/Esther Gomes RN) Vaginal Bleeding : None (12/29/2016 07:00/Esther Gomes RN) Patient Complaints: Suspects SROM (12/29/2016 07:00/Esther Gomes RN) Triage Inital Plan: pt had intercourse last night, has been leaking a scant amt of fluid x2 since then. monithenrry, send amnisure (12/29/2016 07:00/Esther Gomes RN) Patient Dispostion: Discharged Home (12/29/2016 07:00/Esther Gomes RN) Triage Summary: neg amnisure, fhts reassuring. pt denies discomfort. arsenio given report- dischargewith instructions to f/u chloé at thursday's appt. pt understands. otd (12/29/2016 07:00/Esther Gomes RN) documented in this encounter Plan of Treatment Not on file documented as of this encounter Procedures Procedure Name Priority Date/Time Associated Diagnosis Comments AMNIOTIC FLUID MEMBRANE RUPTURE Routine 12/29/2016 7:08 AM COUNSELOR/ART THERAPIST DISCHARGE LABORATORY CUMULATIVE REPORT 12/29/2016 documented in this encounter Results * Amniotic fluid membrane rupture (12/29/2016 7:08 AM COUNSELOR/ART THERAPIST) Alpha 1 microglobulin, fld Negative Negative CDR HISTORICAL RESULTS Amniotic fluid 12/29/2016 7: 08 AM COUNSELOR/ART THERAPIST Historical Provider MD LAB BLOOD ORDERABLES Ruby l Result CDR HISTORICAL RESULTS * DISCHARGE LABORATORY CUMULATIVE REPORT (12/29/2016) Narrative 12/29/2016 Ordered by an unspecified provider. us Historical Provider MD LAB BLOOD ORDERABLES Ruby l Result documented in this encounter Visit Diagnoses Diagnosis Encounter for supervision of normal documented in this encounter Additional Health Concerns Infection Onset Date Last Indicated Resolved Time MRSA Comment:Backloaded September 16, 2011 05/28/2011 05/28/201106/28 5:00 AM CDT documented as of this encounter Care Teams Doubler Helper Relationship Specialty Start Date End Date Mayela Thomas MD [address] [place] [address] PCP - General 09/06/15 07/29/18 documented as of this encounter
--- OUTSIDE RECORDS SUMMARY | 2024-11-30 00:29 | XMS_ITS | Encounter Summary ---
Author Organization [facility] Healthcare Address [address] [place] [address] Care Team Providers Care Neonatal Doctor Name Role Phone Mayela Thomas MD Primary Care Provider Encounter Details Date Type Department Care Team (Late st Contact Info) Description 05/04/2014 11:43 AM CDT - 05/04/2014 2:26 PM CDT Hospital Encounter [facility] Víctor Cote MD [address] [place] [id number] Abdominal pain, left upper quadrant; Abdominal pain of other specified site Social History Tobacco Use Types Packs/Day Years Used Date Smoking Tobacco: Never Assessed Comments Unknown Sex and Gender Information Value Date Recorded Sex Assigned at Not on file Legal Sex Female 1:47 AM TECHNICAL 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 Gender Identity Not on file Sexual Orientation Not on file documented as of this encounter Plan of Treatment Not on file documented as of this encounter Procedures Procedure Name Priority Date/Time Associated Diagnosis Comments DISCHARGE CUMULATIVE SUMMARY ADDENDUM Routine 05/07/2014 12:37 AM CDT SERUM LIPASE Routine 05/04/2014 1:33 PM CDT SERUM COMPREHENSIVE METABOLIC PANEL Routine 05/04/2014 1:33 PM CDT SERUM AMYLASE Routine 05/04/2014 1:33 PM CDT BLOOD WBC CELL MORPHOLOGIC EXAM, AUTO Routine 05/04/2014 1:33 PM CDT BLOOD CELL COUNT (CBC) Routine 4 1:33 PM CDT RENAL COMPUTED TOMOGRAPHY (CT) WITHOUT CONTRAST, STONE PROTOCOL Routine 05/04/2014 1:22 PM CDT URINE CHORIONIC GONADOTROPIN (HCG) Routine 05/04/2014 12:19 PM CDT URINALYSIS Routine 05/04/2014 12:19 PM CDT URINE MICROSCOPY Routine 05/04/2014 7:19 AM CDT MICROBIOLOGY SUMMARY Routine 05/04/2014 12:00 AM CDT DISCHARGE LABORATORY CUMULATIVE REPORT Routine 05/04/2014 12:00 AM CDT documented in this encounter Results * Discharge Cumulative Summary Addendum (05/07/2014 12:37 AM CDT) 05/07/2014 12:3 7 AM CDT Narrative HISTORICAL RESULTS - 05/07/2014 12:37 AM CDT Patient No: [id number] ? [facility] Patient Name: LORENA DESHPANDE ?[facility] Healthcare Age: 23 YRS ?: 1990 ?Sex:F ?[address] )[phone] ?? Adm Dt: 05/04/2014 ?[place], [place] ??[address] Created: 05/07/2014 ??0037 ?? Pt. Type: E ? Discharge Dt: 05/04/2014 ? Pathologists: Aida Pereyra MD Admit Attend Dr: VÍCTOR SARMIENTO MD ? MICRO - URINE URINE CULTURE ? Collected: 05/04/14 1220 ? Received: 05/04/14 1248 Source: CLEAN CATCH URINE ? Started: 05/04/14 1308 ?SPECIMEN LABLED CV ? PRELIMINARY REPORT ?05/05/14753 ? NO GROWTH ? FINAL REPORT ?05/06/14623 ? NO GROWTH ?? END OF CHART ? Page: ?? 1 Historical Provider MD LAB MICROBIOLOGY - GENERA L ORDERABLES Final Result Performing Organization Address [facility] de Phone Number HISTORICAL RESULTS * Serum lipase (05/04/2014 1:33 PM CDT) [facility] Lip 163 70 - 400 Units/L HISTORICAL RESULTS Serum 05/04/2014 1:33 PM CDT Víctor Sarmiento MD LAB BLOOD ORDERABLES Ruby l Result Performing Organization Address [facility] de Phone Number HISTORICAL RESULTS * Blood cell count (CBC) (05/04/2014 1:33 PM CDT) [facility] Platelets 253 150 - 400 K/cumm HISTORICAL RESULTS WBC 8.7 4.0 - 10.5 K/cumm HISTORICAL RESULTS MPV 9.7 7.4 - 10.4 fl HISTORICAL RESULTS RBC 4.41 4.20 - 5.40 M/cumm HISTORICAL RESULTS Hgb 12.7 12.0 - 16.0 g/dl HISTORICAL RESULTS Hct 39.7 37.0 - 47.0 % HISTORICAL RESULTS MCV 90.0 77.0 - 97.0 fl HISTORICAL RESULTS MCH 28.8 23.0 - 34.0 pg HISTORICAL RESULTS MCHC 32.0 32.0 - 36.0 g/dl HISTORICAL RESULTS Rdw 12.8 11.5 - 14.5 % HISTORICAL RESULTS Blood specimen (specimen) 05/04/2014 1:33 PM CDT Víctor Sarmiento MD LAB BLOOD ORDERABLES Ruby l Result Performing Organization Address [facility] de Phone Number HISTORICAL RESULTS * Serum amylase (05/04/2014 1:33 PM CDT) Pathologist [facility] Ana Cristina, sr 49 25 - 115 IUnits/L HISTORICAL RESULTS Serum 05/04/2014 1:33 PM CDT Víctor Sarmiento MD LAB BLOOD ORDERABLES Ruby l Result Performing Organization Address [facility] de Phone Number HISTORICAL RESULTS * (ABNORMAL) Blood WBC cell morphologic exam, auto (05/04/2014 1:33 PM CDT) Pathologist [facility] Lymphocytes 21.6(L) 25.0 - 33.0 % HISTORICAL RESULTS Monos 5.4 0.0 - 13.0 % HISTORICAL RESULTS Neutrophils 70.8(H) 54.0 - 69.0 % HISTORICAL RESULTS Eosinophils 1.9 0.0 - 10.0 % HISTORICAL RESULTS Basophils 0.1 0.0 - 1.0 % HISTORICAL RESULTS Immature granulocytes 0.2 0.0 - 1.0 % HISTORICAL RESULTS Lymphocytes, abs 1.9 1.2 - 3.4 K/cumm HISTORICAL RESULTS Monocytes, absolute 0.5(L) 1.1 - 1.9 K/cumm HISTORICAL RESULTS Neutrophils, abs 6.2 1.4 - 6.5 K/cumm HISTORICAL RESULTS Eosinophils, abs 0.2 0.0 - 0.7 cells/cum m HISTORICAL RESULTS Basophils, abs 0.0 0.0 - 0.2 K/cumm HISTORICAL RESULTS Immature granulocyte, abs 0.0 0.0 - 0.0 K/cumm HISTORICAL RESULTS Blood specimen (specimen) 05/04/2014 1:33 PM CDT us Víctor Sarmiento MD LAB BLOOD ORDERABLES Ruby murphy Result HISTORICAL RESULTS * (ABNORMAL) Serum comprehensive metabolic panel (05/04/2014 1:33 PM CDT) Creatinine 0.99 0.60 - 1.30 mg/dl HISTORICAL RESULTS Comment: eGFR: >70 ml/min/1.73sq.m if non -Bel[place]ian. eGFR: >70 ml/min/1.73sq.m if -Belarusian. AVE GFR for 20-29 yr. age group: ??116 ml/min/1.73sq.m Calculated using the MDRD Equation BUN 7.0 6.0 - 23.0 mg/dl HISTORICAL RESULTS BUN/creat ratio 7(L) 10 - 20 HIST ORICAL RESULTS Sodium 137 134 - 143 mmol/L HISTORICAL RESULTS A. gap 9 7 - 14 mmol/L HISTORICAL RESULTS Potassium, sr 3.9 3.4 - 5.0 mmol/L HISTORICAL RESULTS Protein, sr 6.9 6.4 - 8.0 g/dl HISTORICAL RESULTS Chloride 105 99 - 108 mmol/L HISTORICAL RESULTS Alb 3.3 3.3 - 4.5 g/dl HISTORICAL RESULTS CO2 27 23 - 32 mmol/L HISTORICAL RESULTS Alb/glob ratio 0.9(L) 1.1 - 1.8 HISTO RICAL RESULTS Glucose 109 70 - 199 mg/dl HISTORICAL RESULTS Comment: Note:The glucose is assumed non fasting Fastin-99 mg/dl Random: 70-199 mg/dl Either a fasting glucose > 126 mg/dL or a random glucose > 200 mg/dL plus symptoms is diagnostic of diabetes when confirmed on another day. Fasting values > 100 mg/dl but < 125 mg/dL are diagnostic of impaired fasting glucose. New reference ranges implemented 10/08/2013. Calcium 8.1(L) 8.6 - 9.8 mg/dl HISTORICAL RESULTS Bilirubin 0.3 0.0 - 1.1 mg/dl HISTORICAL RESULTS Alk phos 109 44 - 125 Units/L HISTORICAL RESULTS AST 13 5 - 40 Units/L HISTORICAL RESULTS ALT 19 15 - 70 Units/L HISTORICAL RESULTS Serum 05/04/2014 1:33 PM CDT us Víctor Sarmiento MD LAB BLOOD ORDERABLES Ruby murphy Result HISTORICAL RESULTS * RENAL COMPUTED TOMOGRAPHY (CT) WITHOUT CONTRAST, STONE PROTOCOL (05/04/2014 1:22 PM CDT) Anatomical Region Laterality Modality N/A Computed Tomogra phy 05/04/2014 1:22 PM CDT Narrative 05/04/2014 9:[address] [place] ??[id number] ??Acc#: ??[id number] DATE OF EXAM: ??Awais ??2013 CLINICAL HISTORY: Stone protocol CT. ??Pelvic pain. ??Burning with urination. ??Some hematuria. ??Pain is primarily on left. RESULT: The noncontrast study from near the diaphragm to below the symphysis pubis was obtained. ??There is a 2 mm calculus within a calyx of the right kidney. ??No hydronephrosis on either the right or left was seen. ??In the region of the distal right ureter there is a 2 mm calcification which could be a distal ureteral calculus without obstruction or a phlebolith. Inguinal areas are unremarkable. ??There are some diverticula in the sigmoid colon but no diverticulitis was identified. ??The bowel is not dilated. ??There is no free air or fluid identified. ??Small cystic areas are questioned in both ovarian regions. IMPRESSION: 1. MILD DIVERTICULOSIS BUT NO DIVERTICULITIS SEEN. 2. RIGHT RENAL CALCULUS AND QUESTION NONOBSTRUCTIVE DISTAL RIGHT URETERAL CALCULUS, ALTHOUGH FINDING COULD WELL BE EXPLAINED BY PHLEBOLITHS. 3. QUESTION OF MULTIPLE SMALL CYSTS IN OVARIES. 4. REVIEW WITH THE PRIOR STUDY OF 01/05/14 SHOWS THE SAME PELVIC CALCIFICATION ON THE RIGHT. ??THIS MORE LIKELY IS DUE TO A PHLEBOLITH. Interpreting Physician: ??JESSI CALLOWAY M.D. ??Read on: ??Awais ??2013 1:45P Transcribed by: ??VLR ??On: Apr ??2013 ??4:56P Approved Electronically by: ??JESSI CALLOWAY M.D. ??on: ??Awais ??2013 9:03P Ordering DR: DR VÍCTOR SARMIENTO Attending DR: MAGDALENA MISCELLANEOUS Procedure Note Provider, Esther, - 03/27/[place] [address] Acc#: [id number] DATE OF EXAM: May 04 2014 CLINICAL HISTORY: Stone protocol CT. Pelvic pain. Burning with urination. Somehematuria. Pain is primarily on left. RESULT: The noncontrast study from near the diaphragm to below the symphysispubis was obtained. There is a 2 mm calculus within a calyx of the rightkidney. No hydronephrosis on either the right or left was seen. In theregion of the distal right ureter there is a 2 mm calcification whichcould be a distal ureteral calculus without obstruction or a phlebolith.Inguinal areas are unremarkable. There are some diverticula in thesigmoid colon but no diverticulitis was identified. The bowel is notdilated. There is no free air or fluid identified. Small cystic areasare questioned in both ovarian regions. IMPRESSION: 1. MILD DIVERTICULOSIS BUT NO DIVERTICULITIS SEEN. 2. RIGHT RENAL CALCULUS AND QUESTION NONOBSTRUCTIVE DISTAL RIGHT URETERALCALCULUS, ALTHOUGH FINDING COULD WELL BE EXPLAINED BY PHLEBOLITHS. 3. QUESTION OF MULTIPLE SMALL CYSTS IN OVARIES. 4. REVIEW WITH THE PRIOR STUDY OF 01/05/14 SHOWS THE SAME PELVICCALCIFICATION ON THE RIGHT. THIS MORE LIKELY IS DUE TO A PHLEBOLITH. Interpreting Physician: JESSI CALLOWAY M.D. Read on: May 04 20141:45P Transcribed by: JORGE LUIS On: May 04 2014 4:56P Approved Electronically by: JESSI CALLOWAY M.D. on: May 04 20149:03P Ordering DR: DR VÍCTOR SARMIENTO Attending DR: MAGDALENA RESENDIZCELLYOLY us Historical Provider MD SHARIF CT PROCEDURES Final R esult * Urine chorionic gonadotropin (HCG) (05/04/2014 12:19 PM CDT) HCG, ur Negative NEGATIVE HISTORICAL RESULTS Urine 05/04/2014 12:1 9 PM CDT Rebecca DIEGO LAB BLOOD ORDERABLES Fin al Result Performing Organization Address [facility] de Phone Number HISTORICAL RESULTS * (ABNORMAL) Urinalysis (05/04/2014 12:19 PM CDT) Color, ur YELLOW YELLOW HISTORICAL RESULTS Clarity, ur CLEAR CLEAR HISTORIC AL RESULTS Specific gravity, ur 1.025 gu HISTORICAL RESULTS Leukocyte esterase, ur Negative NEGATIVE HISTORICAL RESULTS Nitrites, ur Negative NEGATIVE HISTORI IBETH RESULTS pH, ur 7.0 6.0 HISTORICAL RESULTS Protein, ur Negative NEGATIVE HISTORIC AL RESULTS Glucose, ur Negative NEGATIVE HISTORIC AL RESULTS Ketones, ur Negative NEGATIVE HISTORIC AL RESULTS Urobilinogen, quant, ur 0.2 0.2 - 1.0 mg/dl HISTORICAL RESULTS Bilirubin, ur Negative NEGATIVE HISTOR ICAL RESULTS U Blood Trace(A) NEGATIVE HISTORICAL RESULTS Urine 05/04/2014 12:1 9 PM CDT Rebecca DIEGO LAB BLOOD ORDERABLES Fin al Result Performing Organization Address [facility] de Phone Number HISTORICAL RESULTS * (ABNORMAL) Urine microscopy (05/04/2014 7:19 AM CDT) WBC, ur 0 - 2 0 - 2 /hpf HISTORICA L RESULTS RBC, ur 0 - 2 0 - 5 /hpf HISTORICA L RESULTS Epithelial cells, ur 5 - 10(A) 0 - 2 /hpf HISTORICAL RESULTS Bacteria, ur 1+(A) NEGATIVE /hpf HISTORICAL RESULTS Hyaline casts 0 - 2 0 - 4 /lpf HISTO RICAL RESULTS Urine 05/04/2014 7:19 AM CDT Narrative HISTORICAL RESULTS - 05/04/2014 8:01 AM CDT ORDERED BY LAB Rebecca DIEGO LAB BLOOD ORDERABLES Fin al Result Performing Organization Address [facility] de Phone Number HISTORICAL RESULTS * Microbiology Summary (05/04/2014 12:00 AM CDT) 05/04/2014 Narrative HISTORICAL RESULTS - 05/07/2014 12:38 AM CDT ? [facility] ?CLINICAL LABORATORIES ? MICROBIOLOGY REPORT PATIENT NAME: ??LORENA DESHPANDE ?MED RECORD#: ??[id number] BIRTHDATE: ??1990 ?? AGE: ??23 YRS SEX: F ?PATIENT#: ? [id number] ADMITTING DR: ??VÍCTOR SARMIENTO MD ? ATTENDING DR: ??VÍCTOR SARMIENTO MD ? ACCESSION#: ?? [id number] CREATED: ??05/07/14 ?? 0036 ? ADMIT DATE: ?? 05/04/14 ? MICRO - URINE URINE CULTURE ? Collected: 05/04/14 1220 ? Received: 05/04/14 1248 Source: CLEAN CATCH URINE ? Started: 05/04/14 1308 ?SPECIMEN LABLED CV ?05/05/14 0754 ? NO GROWTH ?05/06/14 0624 ? NO GROWTH ?? END OF CHART us Historical Provider MD LAB MICROBIOLOGY - GENERA L ORDERABLES Final Result HISTORICAL RESULTS * Discharge Laboratory Cumulative Report (05/04/2014 12:00 AM CDT) 05/04/2014 Narrative HISTORICAL RESULTS - 05/05/2014 2:38 AM CDT Patient No: [id number] ? [facility] Patient Name: LORENA DESHPANDE ?[facility] Age: 23 YRS ?: 1990 ?Sex:F ?[address] )[phone] ?? Adm Dt: 05/04/2014 ?[place], [place] ??[address] Created: 05/05/2014 ??0238 ?? Pt. Type: E ? Discharge Dt: 05/04/2014 ? Pathologists: Aida Pereyra MD Admit Attend Dr: VÍCTOR SARMIENTO MD ? BLOOD CELL COUNTS ?Collection Date: ?05/04/14 ?Collection Time: ?1333 ? Ref Range: ?? Units: [4.00-10.50] /CMM ? WBC X 10^3 ?8.73 [4.20-5.40] ??/CMM ? RBC X 10^6 ?4.41 [12.0-16.0] ??G/DL ? HGB ? 12.7 [37.0-47.0] ??% ?HCT ? 39.7 [77.0-97.0] ??FL ? MCV ? 90.0 [23.0-34.0] ??PG ? MCH ? 28.8 [32.0-36.0] ??% ?MCHC ?32.0 [11.5-14.5] ??% ?RDW ? 12.8 [150-400] ?? /CMM ? PLT X 10^3 ? 253 ?BLOOD CELL DIFFERENTIAL ?Collection Date: ?05/04/14 ?Collection Time: ?1333 ? Ref Range: ?? Units: [54.0-69.0] ??% ?NEUTROPHILS ? 70.8 H [25.0-33.0] ??% ?LYMPHOCYTES ? 21.6 L [0.0-13.0] ??% ?MONOCYTES ?5.4 [0.0-10.0] ??% ?EOSINOPHILS ?1.9 [0.0-1.0] ?? % ?BASOPHILS ?0.1 ? /CMM ? A LYMPHOCYTE ? 1.9 [0.0-1.0] ?? % ?IMM GRAN % ? 0.2 [0.00-0.02] ??/CMM ? A IMM GRAN ?0.02 [1.1-1.9] ?? /CMM ? A MONOCYTE ? 0.5 L [1.4-6.5] ?? /CMM ? A NEUTROPHIL ? 6.2 [0.0-0.7] ?? /CMM ? A EOSINOPHIL ? 0.2 [0.0-0.2] ?? /CMM ? A BASOPHIL ? 0.0 Footnotes and Symbols: L = Low, H = High ?? CONTINUED ?Page: ?? 1 Patient No: [id number] ? [facility] Patient Name: LORENA DESHPANDE ?[facility] Age: 23 YRS ?: 1990 ?Sex:F ?[address] )[phone] ?? Adm Dt: 05/04/2014 ?[place] ??[id number] Created: 05/05/2014 ??0238 ?? Pt. Type: E ? Discharge Dt: 05/04/2014 ? Pathologists: Aida Pereyra MD Admit Attend Dr: VÍCTOR SARMIENTO MD ? GENERAL CHEMISTRY ?Collection Date: ?05/04/14 ?Collection Time: ?1333 ? Ref Range: ?? Units: [134-143] ?? MMOL/L ? SODIUM ? 137 [3.4-5.0] ?? MMOL/L ? POTASSIUM ?3.9 [99.0-108.0] MMOL/L ? CHLORIDE ? 105.0 [23.0-32.0] ??MMOL/L ? TOTAL CO2 ? 27.3 ?? [7-14] ?MMOL/L ? ANION GAP ?9 ??[70-199] ?? MG/DL ?GLUCOSE ?109 f [6.4-8.0] ?? G/DL ? TOTAL PROTEIN ?6.9 [3.3-4.5] ?? G/DL ? ALBUMIN ?3.3 [1.1-1.8] ?A/G RATIO ?0.9 L [8.6-9.8] ?? MG/DL ?CALCIUM ?8.1 L [0.0-1.1] ?? MG/DL ?BILI TOTAL ? 0.3 ??[44-125] ?? U/L ?ALK PHOS ? 109 ?? [5-40] ?U/L ?AST(SGOT) ? 13 f ??[15-70] ?U/L ?ALT(SGPT) ? 19 f [6.0-23.0] ??MG/DL ?BUN ?7.0 ??[10-20] ? B/C RATIO ?7 L Footnotes and Symbols: L = Low, f = Footnote GLUCOSE (10/30/13 -- Current) Note:The glucose is assumed non fasting Fastin-99 mg/dl Random: 70-199 mg/dl Either a fasting glucose > 126 mg/dL or a random glucose > 200 mg/dL plus symptoms is diagnostic of diabetes when confirmed on another day. Fasting values > 100 mg/dl but < 125 mg/dL are diagnostic of impaired fasting glucose. New reference ranges implemented 10/08/2013. AST(SGOT) (04/11/14 -- Current) ALT(SGPT) (06/19/13 -- Current) ?? CONTINUED ?Page: ?? 2 Patient No: [id number] ? [facility] Patient Name: LORENA DESHPANDE ?[facility] Age: 23 YRS ?: 1990 ?Sex:F ?[address] )[phone] ?? Adm Dt: 05/04/2014 ?[place] ??[id number] Created: 05/05/2014 ??0238 ?? Pt. Type: E ? Discharge Dt: 05/04/2014 ? Pathologists: Aida Pereyra MD Admit Dr. Badillo Dr: VÍCTOR SARMIENTO MD ? GENERAL CHEMISTRY ?Collection Date: ?05/04/14 ?Collection Time: ?1333 ? Ref Range: ?? Units: [0.60-1.30] ??MG/DL ?CREATININE ?0.99 f ?05/04/14 1333 eGFR: >70 ml/min/1.73sq.m if non -[place]ian. eGFR: >70 ml/min/1.73sq.m if -Belarusian. AVE GFR for 20-29 yr. age group: ??116 ml/min/1.73sq.m Calculated using the MDRD Equation FOOTNOTE ADDED ON ?? 05/04/14 ?? AT 1405 BY 999 ??[25-115] ?? U/L ?AMYLASE ? 49 f ??[70-400] ?? U/L ?LIPASE ? 163 ? [place] ?Collection Date: ?05/04/14 ?Collection Time: ?1219 ? Ref Range: ?? Units: [NEGATIVE] ?U ? NEGATIVE Footnotes and Symbols: f = Footnote AMYLASE (04/11/14 -- Current) ?? CONTINUED ?Page: ?? 3 Patient No: [id number] ? [facility] Patient Name: LORENA DESHPANDE ?[facility] Age: 23 YRS ?: 1990 ?Sex:F ?[address] )[phone] ?? Adm Dt: 05/04/2014 ?[place] ??[id number] Created: 05/05/2014 ??0238 ?? Pt. Type: E ? Discharge Dt: 05/04/2014 ? Pathologists: Aida Pereyra MD Admit Dr. Badillo Dr: VÍCTOR SARMIENTO MD ?URINALYSIS ?Collection Date: ?05/04/14 ?Collection Time: ?1219 ? Ref Range: ?? Units: [YELLOW] ? UR COLOR ?YELLOW ??[CLEAR] ? UR APPEARANCE ?CLEAR ? U SPEC GRAVITY ? 1.025 [NEGATIVE] ?U LEUKO ESTRASE ? NEGATIVE [NEGATIVE] ?U NITRITE ? NEGATIVE ?? [6.0] ?U PH ? 7.0 [NEGATIVE] ?U PROTEIN ? NEGATIVE [NEGATIVE] ?U GLUCOSE ? NEGATIVE [NEGATIVE] ?U KETONES ? NEGATIVE [0.2- 1.0] ?UROBILINOGEN ? 0.2 [NEGATIVE] ?U BILIRUBIN ? NEGATIVE [NEGATIVE] ?U BLOOD ?TRACE * ?? [0-2] ?U WBC ?0-2 ?? [0-5] ?U RBC ?0-2 ?? [0-2] ?U EPI CELLS ? 5-10 * [NEGATIVE] ?U BACTERIA ?1+ * ?? [0-4] ?U HYALINE CASTS ?0-2 Footnotes and Symbols: * = Abnormal ?? END OF CHART ? Page: ?? 4 us Historical Provider LAB BLOOD ORDERABLES Ruby l Result HISTORICAL RESULTS documented in this encounter Visit Diagnoses Diagnosis Abdominal pain, left upper quadrant Abdominal pain of other specified site documented in this encounter Additional Health Concerns Infection Onset Date Last Indicated Resolved Time MRSA Comment:Backloaded September 16, 2011 05/28/2011 05/28/201106/28 5:00 AM CDT documented as of this encounter Care Teams Neonatal Doctor Relationship Specialty Start Date End Date Mayela Thomas MD [address] [place] [address] PCP - General 06/01/11 09/05/15 documented as of this encounter
--- OUTSIDE RECORDS SUMMARY | 2024-11-30 00:29 | XMS_ITS | Encounter Summary ---
Author Organization [facility] Healthcare Address [address] [place] [address] Care Team Providers Care Gaming Cashier Name Role Phone Mayela Thomas MD Primary Care Provider [phone] Encounter Details Date Type Department Care Team (Late st Contact Info) Description 11/06/2014 3:51 PM PEDIATRIC CLINICAL NURSE SPECIALIST - 11/06/2014 4:42 PM PEDIATRIC CLINICAL NURSE SPECIALIST Hospital Encounter [facility] Torticollis Social History Tobacco Use Types Packs/Day Years Used Date Smoking Tobacco: Never Assessed Comments Unknown Sex and Gender Information Value Date Recorded Sex Assigned at Not on file Legal Sex Female 1:47 AM PEDIATRIC CLINICAL NURSE SPECIALIST Gender Identity Not on file Sexual Orientation Not on file documented as of this encounter Plan of Treatment Not on file documented as of this encounter Visit Diagnoses Diagnosis Torticollis Torticollis, unspecified documented in this encounter Additional Health Concerns Infection Onset Date Last Indicated Resolved Time MRSA Comment:Backloaded September 16, 2011 05/28/2011 05/28/201106/28 5:00 AM CDT documented as of this encounter Care Teams Gaming Cashier Relationship Specialty Start Date End Date Mayela Thomas MD [address] [place] [address] PCP - General 06/01/11 09/05/15 documented as of this encounter
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
--- OUTSIDE RECORDS SUMMARY | 2024-11-30 00:29 | XMS_ITS | Encounter Summary ---
Author Organization [facility] Healthcare Address [address] [place] [address] Care Team Providers Care Windows And Doors Installer Name Role Phone Mayela Thomas MD Primary Care Provider [phone] Encounter Details Date Type Department Care Team (Late st Contact Info) Description 03/18/2014 11:35 PM CDT - 03/19/2014 4:15 AM CDT Hospital Encounter [facility] Simran Rolle MD [address] [place] [address] Acute sinusitis; Headache Social History Tobacco Use Types Packs/Day Years Used Date Smoking Tobacco: Never Assessed Comments Unknown Sex and Gender Information Value Date Recorded Sex Assigned at Not on file 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 Gender Identity Not on file Sexual Orientation Not on file documented as of this encounter Plan of Treatment Not on file documented as of this encounter Visit Diagnoses Diagnosis Acute sinusitis Acute sinusitis, unspecified Headache documented in this encounter Additional Health Concerns Infection Onset Date Last Indicated Resolved Time MRSA Comment:Backloaded September 16, 2011 05/28/2011 05/28/201106/28 5:00 AM CDT documented as of this encounter Care Teams Windows And Doors Installer Relationship Specialty Start Date End Date Mayela Thomas MD [address] [place] [id number] PCP - General 06/01/11 09/05/15 documented as of this encounter
--- OUTSIDE RECORDS SUMMARY | 2024-11-30 00:29 | XMS_ITS | Encounter Summary ---
Author Organization [facility] Healthcare Address [address] [place] [address] Care Team Providers Care Advertising Internship Name Role Phone Mayela Thomas MD Primary Care Provider [phone] Encounter Details Date Type Department Care Team (Late st Contact Info) Description 03/11/2014 3:34 PM CDT - 03/11/2014 4:31 PM CDT Hospital Encounter [facility] Simran Rolle MD 1 [facility] [address] Acute sinusitis; Allergic rhinitis Social History Tobacco Use Types Packs/Day Years Used Date Smoking Tobacco: Never Assessed Comments Unknown Sex and Gender Information Value Date Recorded Sex Assigned at Not on file 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 Gender Identity Not on file Sexual Orientation Not on file documented as of this encounter Plan of Treatment Not on file documented as of this encounter Visit Diagnoses Diagnosis Acute sinusitis Acute sinusitis, unspecified Allergic rhinitis Allergic rhinitis, cause unspecified documented in this encounter Additional Health Concerns Infection Onset Date Last Indicated Resolved Time MRSA Comment:Backloaded September 16, 2011 05/28/2011 05/28/201106/28 5:00 AM CDT documented as of this encounter Care Teams Advertising Internship Relationship Specialty Start Date End Date Mayela Thomas MD [address] [place] [id number] PCP - General 06/01/11 09/05/15 documented as of this encounter
--- OUTSIDE RECORDS SUMMARY | 2024-11-30 00:29 | XMS_ITS | Encounter Summary ---
Author Organization [facility] Healthcare Address [address] [place] [address] Care Team Providers Care Baseball Inspector Name Role Phone Mayela Thomas MD Primary Care Provider [phone] Encounter Details Date Type Department Care Team (Late st Contact Info) Description 02/06/2013 11:20 PM CDT - 02/06/2013 11:59 PM CDT Hospital Encounter [facility] Leroy Price MD [facility] [facility] [place] [address] Social History Tobacco Use Types Packs/Day Years Used Date Smoking Tobacco: Never Assessed Comments Unknown Sex and Gender Information Value Date Recorded Sex Assigned at Not on file 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 Gender Identity Not on file Sexual Orientation Not on file documented as of this encounter Plan of Treatment Not on file documented as of this encounter Visit Diagnoses Not on filedocumented in this encounter Additional Health Concerns Infection Onset Date Last Indicated Resolved Time MRSA Comment:Backloaded September 16, 2011 05/28/2011 05/28/201106/28 5:00 AM CDT documented as of this encounter Care Teams Baseball Inspector Relationship Specialty Start Date End Date Mayela Thomas MD [address] [place] [phone] PCP - General 06/01/11 09/05/15 documented as of this encounter
--- OUTSIDE RECORDS SUMMARY | 2024-11-30 00:29 | XMS_ITS | Encounter Summary ---
Author Organization [facility] Healthcare Address [address] [place] [address] Care Team Providers Care Chief Investment Officer Name Role Phone Mayela Thomas MD Primary Care Provider [phone] Encounter Details Date Type Department Care Team (Late st Contact Info) Description 10/08/2014 6:38 PM REHAB AIDE - 10/08/2014 8:15 PM REHAB AIDE Hospital Encounter [facility] Víctor Sarmiento MD 1 [facility] [place] [address] Migraine Social History Tobacco Use Types Packs/Day Years Used Date Smoking Tobacco: Never Assessed Comments Unknown Sex and Gender Information Value Date Recorded Sex Assigned at Not on file 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 Sex Female 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 Gender Identity Not on file Sexual Orientation Not on file documented as of this encounter Plan of Treatment Not on file documented as of this encounter Visit Diagnoses Diagnosis Migraine Migraine, unspecified, without mention of intractable migraine without mention of status migrainosus documented in this encounter Additional Health Concerns Infection Onset Date Last Indicated Resolved Time MRSA Comment:Backloaded September 16, 2011 05/28/2011 05/28/201106/28 5:00 AM CDT documented as of this encounter Care Teams Chief Investment Officer Relationship Specialty Start Date End Date Mayela Thomas MD [address] [place] [id number] PCP - General 06/01/11 09/05/15 documented as of this encounter
--- OUTSIDE RECORDS SUMMARY | 2024-11-30 00:29 | XMS_ITS | Encounter Summary ---
Author Organization [facility] Healthcare Address [address] [place] [address] Care Team Providers Care Occupational Work Experience Teacher Name Role Phone Mayela Thomas MD Primary Care Provider [phone] Encounter Details Date Type Department Care Team (Late st Contact Info) Description 02/06/2013 10:44 PM CDT - 02/07/2013 Hospital Encounter [facility] Karla Alexander MD [address] [place] [address] Vaginitis and vulvovaginitis; Asthma Social History Tobacco Use Types Packs/Day Years Used Date Smoking Tobacco: Never Assessed Comments Unknown Sex and Gender Information Value Date Recorded Sex Assigned at Not on file 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 Gender Identity Not on file Sexual Orientation Not on file documented as of this encounter Plan of Treatment Not on file documented as of this encounter Procedures Procedure Name Priority Date/Time Associated Diagnosis Comments DISCHARGE CUMULATIVE SUMMARY ADDENDUM Routine 02/13/2013 12:27 AM CDT DISCHARGE LABORATORY CUMULATIVE REPORT Routine 02/07/2013 12:00 AM CDT GENITAL FLUID GONORRHEA DNA SCREEN Routine 02/06/2013 11:20 PM CDT GENITAL FLUID CHLAMYDIA DNA SCREEN Routine 02/06/2013 11:20 PM CDT MICROBIOLOGY SUMMARY Routine 02/06/2013 12:00 AM CDT documented in this encounter Results * Discharge Cumulative Summary Addendum (02/13/2013 12:27 AM CDT) 02/13/2013 12:2 7 AM CDT Narrative HISTORICAL RESULTS - 02/13/2013 12:27 AM CDT Patient No: [id number] ? [facility] Patient Name: AIDA KOROMA ?[facility] Age: 22 YRS ?: 1990 ?Sex:F ?[address] )[id number] ?? Adm Dt: 02/06/2013 ?[place], [place] ??[address] Created: 02/13/2013 ??0027 ?? Pt. Type: E ? Discharge Dt: 02/07/2013 ? Pathologists: Aida Pereyra MD Admit Attend Dr: KARLA PRICE MD ? SEROLOGY ?Collection Date: ?02/06/13 ?Collection Time: ?2320 ? Ref Range: ?? Units: ?CHLAM AMP PROB @ ?SEE REPT ?GC AMP PROBE @ ?SEE REPT @ = CHLAM AMP PROB, GC AMP PROBE Performed at ??[facility] ?[place], [place] ?? END OF CHART ? Page: ?? 1 us Historical Provider MD LAB MICROBIOLOGY - GENERA L ORDERABLES Final Result HISTORICAL RESULTS * Discharge Laboratory Cumulative Report (02/07/2013 12:00 AM CDT) 02/07/2013 Narrative HISTORICAL RESULTS - 02/08/2013 12:24 AM CDT Patient No: [id number] ? [facility] Patient Name: AIDA KOROMA ?[facility] Age: 22 YRS ?: 1990 ?Sex:F ?[address] )[id number] ?? Adm Dt: 02/06/2013 ?[place], [place] ??[address] Created: 02/08/2013 ??0024 ?? Pt. Type: E ? Discharge Dt: 02/07/2013 ? Pathologists: Aida Pereyra MD Admit Attend Dr: KARLA PRICE MD ?MICRO - GENITAL TRICHOMONAS WET PREP ?Collected: 02/06/132319 ? Received: 02/06/132331 Source: VAGINAL SMEAR ? Started: 02/06/132336 ?Vaginal ? FINAL REPORT ?02/06/132336 ? NO TRICHOMONAS SEEN ?MICRO - FUNGUS ORDERABLE RAIZA PREP ?Collected: 02/06/130 ? Received: 02/06/132331 Source: VAGINAL SMEAR ? Started: 02/06/132336 ?Vaginal ? FINAL REPORT ?02/06/132336 ? NO YEAST OR FUNGAL ELEMENTS SEEN ?? END OF CHART ? Page: ?? 1 us Historical Provider LAB BLOOD ORDERABLES Ruby l Result Performing Organization Address [facility] de Phone Number HISTORICAL RESULTS * Genital fluid Gonorrhea DNA screen (02/06/2013 11:20 PM CDT) Pathologist [facility] Gonorrheae (GC) DNA, genital swab See Report HISTORICAL RESULTS Genital 02/06/2013 11:2 0 PM CDT us Karla Price MD LAB BLOOD ORDERABLES Final Result Performing Organization Address [facility] Co de Phone Number HISTORICAL RESULTS * Genital fluid Chlamydia DNA screen (02/06/2013 11:20 PM CDT) Pathologist [facility] Chlamydia trachomatis, PCR, genital swab See Report HISTORICAL RESULTS Genital 02/06/2013 11:2 0 PM CDT us Karla Price MD LAB BLOOD ORDERABLES Final Result HISTORICAL RESULTS * Microbiology Summary (02/06/2013 12:00 AM CDT) 02/06/2013 Narrative HISTORICAL RESULTS - 02/07/2013 12:28 AM CDT ? [facility] ?[facility] ? MICROBIOLOGY REPORT PATIENT NAME: ??AIDA KOROMA S ?MED RECORD#: ??[id number] BIRTHDATE: ??1990 ?? AGE: ??22 YRS SEX: F ?PATIENT#: ? [id number] ADMITTING DR: ??UNKNOWN, NOTINFILE ? ATTENDING DR: ??UNKNOWN, NOTINFILE ? ACCESSION#: ?? [id number] CREATED: ??02/07/13 ?? 0024 ? ADMIT DATE: ?? 02/06/13 ?MICRO - GENITAL TRICHOMONAS WET PREP ?Collected: 02/06/130 ? Received: 02/06/132 Source: VAGINAL SMEAR ? Started: 02/06/137 ?Vaginal ?02/06/137 ? NO TRICHOMONAS SEEN ?MICRO - FUNGUS ORDERABLE RAIZA PREP ?Collected: 02/06/132319 ? Received: 02/06/132331 Source: VAGINAL SMEAR ? Started: 02/06/132336 ?Vaginal ?02/06/132336 ? NO YEAST OR FUNGAL ELEMENTS SEEN ?PENDING ORDERS ??02/06/132318 GC AMP PROBE ? RECVD 61988 ??02/06/132318 ORDERABLE GRAM STAIN ? DSPTCH ??02/06/13 2319 CHLAMYDIA TRACH AMP PROBE ?RECVD ?? END OF CHART us Historical Provider LAB MICROBIOLOGY - GENERA L ORDERABLES Final Result HISTORICAL RESULTS documented in this encounter Visit Diagnoses Diagnosis Vaginitis and vulvovaginitis Asthma Unspecified asthma documented in this encounter Additional Health Concerns Infection Onset Date Last Indicated Resolved Time MRSA Comment:Backloaded September 16, 2011 05/28/2011 05/28/201106/28 5:00 AM CDT documented as of this encounter Care Teams Occupational Work Experience Teacher Relationship Specialty Start Date End Date Mayela Thomas MD [address] [place] [address] PCP - General 06/01/11 09/05/15 documented as of this encounter
--- OUTSIDE RECORDS SUMMARY | 2024-11-30 00:29 | XMS_ITS | Encounter Summary ---
Author Organization [facility] Healthcare Address [address] [place] [address] Care Team Providers Care Hand Cementer Name Role Phone Mayela Thomas MD Primary Care Provider [phone] Encounter Details Date Type Department Care Team (Late st Contact Info) Description 01/05/2014 7:38 PM WALLPAPER INSTALLER - 01/05/2014 10:15 PM WALLPAPER INSTALLER Hospital Encounter [facility] Ezekiel Cote MD [address] [place] [id number] Abdominal pain; Symptom associated with female genital organs Social History Tobacco Use Types Packs/Day Years Used Date Smoking Tobacco: Never Assessed Comments Unknown Sex and Gender Information Value Date Recorded Sex Assigned at Not on file Legal Sex Female 1:47 AM WALLPAPER INSTALLER Gender Identity Not on file Sexual Orientation Not on file documented as of this encounter Plan of Treatment Not on file documented as of this encounter Procedures Procedure Name Priority Date/Time Associated Diagnosis Comments DISCHARGE CUMULATIVE SUMMARY ADDENDUM Routine 01/10/2014 12:34 AM WALLPAPER INSTALLER SERUM BASIC METABOLIC PANEL Routine 01/05/2014 8:46 PM WALLPAPER INSTALLER BLOOD WBC CELL MORPHOLOGIC EXAM, AUTO Routine 01/05/2014 8:46 PM WALLPAPER INSTALLER BLOOD CELL COUNT (CBC) Routine 01/05/2014 8:46 PM WALLPAPER INSTALLER RENAL COMPUTED TOMOGRAPHY (CT) WITHOUT CONTRAST, STONE PROTOCOL Routine 01/05/2014 8:33 PM WALLPAPER INSTALLER URINE CHLAMYDIA, GONORRHEA DNA Routine 01/05/2014 8:00 PM WALLPAPER INSTALLER URINE CHORIONIC GONADOTROPIN (HCG) Routine 01/05/2014 7:56 PM WALLPAPER INSTALLER URINALYSIS Routine 01/05/2014 7:56 PM WALLPAPER INSTALLER URINE MICROSCOPY Routine 01/05/2014 1:56 PM WALLPAPER INSTALLER MICROBIOLOGY SUMMARY Routine 01/05/2014 12:00 AM WALLPAPER INSTALLER DISCHARGE LABORATORY CUMULATIVE REPORT Routine 01/05/2014 12:00 AM WALLPAPER INSTALLER documented in this encounter Results * Discharge Cumulative Summary Addendum (01/10/2014 12:34 AM WALLPAPER INSTALLER) 01/10/2014 12:3 4 AM WALLPAPER INSTALLER Narrative HISTORICAL RESULTS - 01/10/2014 12:34 AM WALLPAPER INSTALLER Patient No: [id number] ? [facility] Patient Name: AIDA KOROMA ?[facility] Healthcare Age: 23 YRS ?: 1990 ?Sex:F ?[address] )[phone] ?? Adm Dt: 01/05/2014 ?[place], [place] ??[address] Created: 01/10/2014 ??0034 ?? Pt. Type: E ? Discharge Dt: 01/05/2014 ? Pathologists: Aida Pereyra MD Admit Dr. Badillo Dr: EZEKIEL SARMIENTO MD ?MICROBIAL SEROLOGY ?Collection Date: ?01/05/14 ?Collection Time: ?2000 ? Ref Range: ?? Units: ?URINE CHLAM+GC @ ?SEE REPT @ = URINE CHLAM+GC Performed at ??[facility] ?? [place], [place] ?? END OF CHART ? Page: ?? 1 us Historical Provider LAB MICROBIOLOGY - GENERA L ORDERABLES Final Result HISTORICAL RESULTS * (ABNORMAL) Serum basic metabolic panel (01/05/2014 8:46 PM WALLPAPER INSTALLER) BUN 11.0 6.0 - 23.0 mg/dl HISTORICAL RESULTS Sodium 136 134 - 143 mmol/L HISTORICAL RESULTS Potassium, sr 3.8 3.4 - 5.0 mmol/L HISTORICAL RESULTS Chloride 103 99 - 108 mmol/L HISTORICAL RESULTS CO2 27 23 - 32 mmol/L HISTORICAL RESULTS Glucose 81 70 - 199 mg/dl HISTORICAL RESULTS Comment: Note:The glucose is assumed non fasting Fastin-99 mg/dl Random: 70-199 mg/dl Either a fasting glucose > 126 mg/dL or a random glucose > 200 mg/dL plus symptoms is diagnostic of diabetes when confirmed on another day. Fasting values > 100 mg/dl but < 125 mg/dL are diagnostic of impaired fasting glucose. New reference ranges implemented 10/08/2013. Creatinine 0.94 0.60 - 1.30 mg/dl HISTORICAL RESULTS Comment: eGFR: >70 ml/min/1.73sq.m if non -Monegasque. eGFR: >70 ml/min/1.73sq.m if -Monegasque. AVE GFR for 20-29 yr. age group: ??116 ml/min/1.73sq.m Calculated using the MDRD Equation BUN/creat ratio 12 10 - 20 HIST ORICAL RESULTS A. gap 10 7 - 14 mmol/L HISTORICAL RESULTS Osmo, calc 270(L) 275 - 295 mOsm/kg HISTORICAL RESULTS Calcium 8.4(L) 8.6 - 9.8 mg/dl HISTORICAL RESULTS Serum 01/05/2014 8:46 PM WALLPAPER INSTALLER Ezekiel Sarmiento MD LAB BLOOD ORDERABLES Ruby l Result Performing Organization Address City/[facility]/ZIP Co de Phone Number HISTORICAL RESULTS * Blood cell count (CBC) (01/05/2014 8:46 PM WALLPAPER INSTALLER) WBC 9.1 4.0 - 10.5 K/cumm HISTORICAL RESULTS RBC 4.27 4.20 - 5.40 M/cumm HISTORICAL RESULTS Hgb 12.2 12.0 - 16.0 g/dl HISTORICAL RESULTS Hct 37.9 37.0 - 47.0 % HISTORICAL RESULTS MCV 88.8 77.0 - 97.0 fl HISTORICAL RESULTS MCH 28.6 23.0 - 34.0 pg HISTORICAL RESULTS MCHC 32.2 32.0 - 36.0 g/dl HISTORICAL RESULTS Rdw 12.4 11.5 - 14.5 % HISTORICAL RESULTS Platelets 237 150 - 451 K/cumm HISTORICAL RESULTS MPV 9.5 7.4 - 10.4 fl HISTORICAL RESULTS Blood specimen (specimen) 01/05/2014 8:46 PM WALLPAPER INSTALLER Ezekiel Sarmiento MD LAB BLOOD ORDERABLES Ruby l Result HISTORICAL RESULTS * (ABNORMAL) Blood WBC cell morphologic exam, auto (01/05/2014 8:46 PM WALLPAPER INSTALLER) Lymphocytes 36.7(H) 25.0 - 33.0 % HISTORICAL RESULTS Monos 7.8 1.0 - 13.0 % HISTORICAL RESULTS Neutrophils 53.5(L) 54.0 - 69.0 % HISTORICAL RESULTS Eosinophils 1.6 0.0 - 10.0 % HISTORICAL RESULTS Basophils 0.2 0.0 - 1.0 % HISTORICAL RESULTS Immature granulocytes 0.2 0.0 - 1.0 % HISTORICAL RESULTS Lymphocytes, abs 3.3 1.2 - 3.4 K/cumm HISTORICAL RESULTS Monocytes, absolute 0.7(L) 1.1 - 1.9 K/cumm HISTORICAL RESULTS Neutrophils, abs 4.9 1.4 - 6.5 K/cumm HISTORICAL RESULTS Eosinophils, abs 0.2 0.0 - 0.7 cells/cum m HISTORICAL RESULTS Basophils, abs 0.0 0.0 - 0.2 K/cumm HISTORICAL RESULTS Immature granulocyte, abs 0.0 0.0 - 0.0 K/cumm HISTORICAL RESULTS Blood specimen (specimen) 01/05/2014 8:46 PM WALLPAPER INSTALLER Ezekiel Sarmiento MD LAB BLOOD ORDERABLES Ruby murphy Result HISTORICAL RESULTS * RENAL COMPUTED TOMOGRAPHY (CT) WITHOUT CONTRAST, STONE PROTOCOL (01/05/2014 8:33 PM WALLPAPER INSTALLER) Anatomical Region Laterality Modality N/A Computed Tomogra phy 01/05/2014 8:33 PM WALLPAPER INSTALLER Narrative 01/07/2014 11:[address] [place] ??[id number] ??Acc#: ??[id number] DATE OF EXAM: ??Dec ??2013 CLINICAL HISTORY: Left flank/lower abdominal pain. ??No history of stones. RESULT: Noncontrast spiral axial scans were obtained from above kidneys to ischial tuberosities. ??Axial as well as coronal and sagittal reformatted images were reviewed. No urinary tract calcification is seen. ??No renal mass, cyst or hydronephrosis/hydroureter is demonstrated. ??Urinary bladder caliber and contour are normal. ??Uterus and adnexal structures are unremarkable. Stool is present in colon, mostly from cecum to splenic flexure. ??No dilated colon or small bowel is seen. ??Appendix is small. ??No lymphadenopathy or ascites is seen. ??Visualized portions of liver and spleen are normal. ??Gallbladder, bile duct, pancreas and adrenal glands are normal. ??Abdominal aorta and inferior vena cava are normal. Abdominal and pelvic wall structures are intact. IMPRESSION: 1. NO URINARY TRACT CALCULUS OR OTHER ABNORMALITY SEEN. 2. NO OTHER SIGNIFICANT ABDOMINAL OR PELVIC FINDINGS. Report called to Dr. Sarmiento in Emergency Department on 05 January 2014 at 2117 hours. Interpreting Physician: ??FREDDY FLORES M.D. ??Read on: ??Fe ??2013 10:15A Transcribed by: ??VLR ??On: Jan 07 2014 ??9:19A Approved Electronically by: ??FREDDY FLORES M.D. ??on: ??Jan 07 2014 11:54A Ordering DR: DR EZEKIEL SARMIENTO Attending DR: PHYSICIAN NO Procedure Note Provider, MD Esther - 03/27/[address] [place] [id number] Acc#: [id number] DATE OF EXAM: Jan 05 2014 CLINICAL HISTORY: Left flank/lower abdominal pain. No history of stones. RESULT: Noncontrast spiral axial scans were obtained from above kidneys toischial tuberosities. Axial as well as coronal and sagittal reformattedimages were reviewed. No urinary tract calcification is seen. No renalmass, cyst or hydronephrosis/hydroureter is demonstrated. Urinary bladdercaliber and contour are normal. Uterus and adnexal structures areunremarkable. Stool is present in colon, mostly from cecum to splenicflexure. No dilated colon or small bowel is seen. Appendix is small. Nolymphadenopathy or ascites is seen. Visualized portions of liver andspleen are normal. Gallbladder, bile duct, pancreas and adrenal glandsare normal. Abdominal aorta and inferior vena cava are normal. Abdominaland pelvic wall structures are intact. IMPRESSION: 1. NO URINARY TRACT CALCULUS OR OTHER ABNORMALITY SEEN. 2. NO OTHER SIGNIFICANT ABDOMINAL OR PELVIC FINDINGS. Report called to in Emergency Department on 05 January 2014 at 2117 hours. Interpreting Physician: FREDDY FLORES M.D. Read on: Jan 06 201410:15A Transcribed by: JORGE LUIS On: Jan 07 2014 9:19A Approved Electronically by: FREDDY FLORES M.D. on: Jan 07 201411:54A Ordering DR: DR EZEKIEL SARMIENTO Attending DR: PHYSICIAN NO Historical Provider IMG CT PROCEDURES Final R esult * Urine Chlamydia, Gonorrhea DNA (01/05/2014 8:00 PM WALLPAPER INSTALLER) Chlamydia DNA, ur See Report HISTORICAL RESULTS Urine 01/05/2014 8:00 PM WALLPAPER INSTALLER Gabriela DIEGO LAB BLOOD ORDERABLES Fi nal Result HISTORICAL RESULTS * Urine chorionic gonadotropin (HCG) (01/05/2014 7:56 PM WALLPAPER INSTALLER) HCG, ur Negative NEGATIVE HISTORICAL RESULTS Urine 01/05/2014 7:56 PM WALLPAPER INSTALLER us Gabriela DIEGO LAB BLOOD ORDERABLES Fi nal Result Performing Organization Address [facility] de Phone Number HISTORICAL RESULTS * (ABNORMAL) Urinalysis (01/05/2014 7:56 PM WALLPAPER INSTALLER) Color, ur YELLOW YELLOW HISTORICAL RESULTS Clarity, ur CLOUDY(A) CLEAR HISTORIC AL RESULTS Specific gravity, ur >=1.030(A) gu HISTORICAL RESULTS Leukocyte esterase, ur Negative NEGATIVE HISTORICAL RESULTS Nitrites, ur Negative NEGATIVE HISTORI IBETH RESULTS pH, ur 6.5 6.0 HISTORICAL RESULTS Protein, ur Negative NEGATIVE HISTORIC AL RESULTS Glucose, ur Negative NEGATIVE HISTORIC AL RESULTS Ketones, ur Negative NEGATIVE HISTORIC AL RESULTS Urobilinogen, quant, ur 1.0 0.2 - 1.0 mg/dl HISTORICAL RESULTS Bilirubin, ur SMALL(A) NEGATIVE HISTOR ICAL RESULTS U Blood Negative NEGATIVE HISTORICAL RESULTS Urine 01/05/2014 7:56 PM WALLPAPER INSTALLER Gabriela DIEGO LAB BLOOD ORDERABLES nal Result Performing Organization Address [facility] de Phone Number HISTORICAL RESULTS * (ABNORMAL) Urine microscopy (01/05/2014 1:56 PM WALLPAPER INSTALLER) WBC, ur 0 - 2 0 - [...] casts, ur Negative NEGATIVE HISTORICAL RESULTS Urine 01/05/2014 1:56 PM WALLPAPER INSTALLER Narrative HISTORICAL RESULTS - 01/05/2014 2:33 PM WALLPAPER INSTALLER ORDERED BY LAB Gabriela DIEGO LAB BLOOD ORDERABLES Fi nal Result Performing Organization Address [facility] de Phone Number HISTORICAL RESULTS * Microbiology Summary (01/05/2014 12:00 AM WALLPAPER INSTALLER) 01/05/2014 Narrative HISTORICAL RESULTS - 01/08/2014 12:35 AM WALLPAPER INSTALLER ? [facility] ?CLINICAL LABORATORIES ? MICROBIOLOGY REPORT PATIENT NAME: ??AIDA KOROMA ?MED RECORD#: ??[id number] BIRTHDATE: ??1990 ?? AGE: ??23 YRS SEX: F ?PATIENT#: ? [id number] ADMITTING DR: ??EZEKIEL SARMIENTO MD ? ATTENDING DR: ??EZEKIEL SARMIENTO MD ? ACCESSION#: ?? [id number] CREATED: ??01/08/14 ?? 0033 ? ADMIT DATE: ?? 01/05/14 ? MICRO - URINE URINE CULTURE ? Collected: 01/05/141999 ? Received: 01/05/142024 Source: CLEAN CATCH URINE ? Started: 01/05/142052 ?01/06/14824 ? NO GROWTH ?01/07/14632 ? LESS THAN 10,000 CFU/ml MULTIPLE GRAM POSITIVE ORGANISMS ? (SENSITIVITIES NOT PERFORMED) ?PENDING ORDERS [id number] ??01/05/142005 URINE CHLAM AND GC BY NA AMP ?? RECVD ?? END OF CHART us Historical Provider LAB MICROBIOLOGY - GENERA L ORDERABLES Final Result HISTORICAL RESULTS * Discharge Laboratory Cumulative Report (01/05/2014 12:00 AM WALLPAPER INSTALLER) 01/05/2014 Narrative HISTORICAL RESULTS - 01/06/2014 2:35 AM WALLPAPER INSTALLER Patient No: [id number] ? [facility] Patient Name: AIDA KOROMA ?[facility] Healthcare Age: 23 YRS ?: 1990 ?Sex:F ?[address] )[id number] ?? Adm Dt: 01/05/2014 ?[place], [place] ??[address] Created: 01/06/2014 ??0235 ?? Pt. Type: E ? Discharge Dt: 01/05/2014 ? Pathologists: Aida Pereyra MD Admit Attend : EZEKIEL SARMIENTO MD ? BLOOD CELL COUNTS ?Collection Date: ?01/05/14 ?Collection Time: ?2045 ? Ref Range: ?? Units: [4.00-10.50] /CMM ? WBC X 10^3 ?9.11 [4.20-5.40] ??/CMM ? RBC X 10^6 ?4.27 [12.0-16.0] ??G/DL ? HGB ? 12.2 [37.0-47.0] ??% ?HCT ? 37.9 [77.0-97.0] ??FL ? MCV ? 88.8 [23.0-34.0] ??PG ? MCH ? 28.6 [32.0-36.0] ??% ?MCHC ?32.2 [11.5-14.5] ??% ?RDW ? 12.4 [150-451] ?? /CMM ? PLT X 10^3 ? 237 ?BLOOD CELL DIFFERENTIAL ?Collection Date: ?01/05/14 ?Collection Time: ?2046 ? Ref Range: ?? Units: [54.0-69.0] ??% ?NEUTROPHILS ? 53.5 L [25.0-33.0] ??% ?LYMPHOCYTES ? 36.7 H [1.0-13.0] ??% ?MONOCYTES ?7.8 [0.0-10.0] ??% ?EOSINOPHILS ?1.6 [0.0-1.0] ?? % ?BASOPHILS ?0.2 ? /CMM ? A LYMPHOCYTE ? 3.3 [0.0-1.0] ?? % ?IMM GRAN % ? 0.2 [0.00-0.02] ??/CMM ? A IMM GRAN ?0.02 [1.1-1.9] ?? /CMM ? A MONOCYTE ? 0.7 L [1.4-6.5] ?? /CMM ? A NEUTROPHIL ? 4.9 [0.0-0.7] ?? /CMM ? A EOSINOPHIL ? 0.2 [0.0-0.2] ?? /CMM ? A BASOPHIL ? 0.0 Footnotes and Symbols: L = Low, H = High ?? CONTINUED ?Page: ?? 1 Patient No: [id number] ? [facility] Patient Name: AIDA KOROMA ?[facility] Age: 23 YRS ?: 1990 ?Sex:F ?[address] )[id number] ?? Adm Dt: 01/05/2014 ?[place] ??[address] Created: 01/06/2014 ??0235 ?? Pt. Type: E ? Discharge Dt: 01/05/2014 ? Pathologists: Aida Pereyra MD Admit Attend Dr: EZEKIEL SARMIENTO MD ? GENERAL CHEMISTRY ?Collection Date: ?01/05/14 ?Collection Time: ?2045 ? Ref Range: ?? Units: [134-143] ?? MMOL/L ? SODIUM ? 136 [3.4-5.0] ?? MMOL/L ? POTASSIUM ?3.8 [99.0-108.0] MMOL/L ? CHLORIDE ? 103.0 [23.0-32.0] ??MMOL/L ? TOTAL CO2 ? 26.9 ?? [7-14] ?MMOL/L ? ANION GAP ? 10 ??[70-199] ?? MG/DL ?GLUCOSE ? 81 f [275-295] ?? MOSM/K ? CALCULATED OSMO ?270 L [8.6-9.8] ?? MG/DL ?CALCIUM ?8.4 L [6.0-23.0] ??MG/DL ?BUN ? 11.0 ??[10-20] ? B/C RATIO ? 12 [0.60-1.30] ??MG/DL ?CREATININE ?0.94 f ?01/05/142045 eGFR: >70 ml/min/1.73sq.m if non -[place]onegasque. eGFR: >70 ml/min/1.73sq.m if -Monegasque. AVE GFR for 20-29 yr. age group: ??116 ml/min/1.73sq.m Calculated using the MDRD Equation FOOTNOTE ADDED ON ?? 01/05/14 ?? AT 2112 BY 999 Footnotes and Symbols: L = [...] fasting glucose. New reference ranges implemented 10/08/2013. ?? CONTINUED ?Page: ?? 2 Patient No: [id number] ? [facility] Patient Name: AIDA KOROMA ?[facility] Age: 23 YRS ?: 1990 ?Sex:F ?[address] )[id number] ?? Adm Dt: 01/05/2014 ?[place], [place] ??[address] Created: 01/06/2014 ??0235 ?? Pt. Type: E ? Discharge Dt: 01/05/2014 ? Pathologists: Aida Peryera MD Admit Attend Dr: EZEKIEL SARMIENTO MD ? HORMONES ?Collection Date: ?01/05/14 ?Collection Time: ?1956 ? Ref Range: ?? Units: [NEGATIVE] ?U ? NEGATIVE ?URINALYSIS ?Collection Date: ?01/05/14 ?Collection Time: ?1956 ? Ref Range: ?? Units: [YELLOW] ? UR COLOR ?YELLOW ??[CLEAR] ? UR APPEARANCE ? CLOUDY * ? U SPEC GRAVITY ? >=1.030 * [NEGATIVE] ?U LEUKO ESTRASE ? NEGATIVE [NEGATIVE] ?U NITRITE ? NEGATIVE ?? [6.0] ?U PH ? 6.5 [NEGATIVE] ?U PROTEIN ? NEGATIVE [NEGATIVE] ?U GLUCOSE ? NEGATIVE [NEGATIVE] ?U KETONES ? NEGATIVE [0.2- 1.0] ?UROBILINOGEN ? 1.0 [NEGATIVE] ?U BILIRUBIN ?SMALL * [NEGATIVE] ?U BLOOD ? NEGATIVE ?? [0-2] ?U WBC ?0-2 ?? [0-5] ?U RBC ?0-2 ?? [0-2] ?U EPI CELLS ? 5-10 * [NEGATIVE] ?U BACTERIA ?1+ * ?U YEASTS ?NEGATIVE ?? [0-4] ?U HYALINE CASTS ?0-2 [NEGATIVE] ?U CRYSTALS ?NEGATIVE [NEGATIVE] ?U PATH CASTS ?NEGATIVE Footnotes and Symbols: * = Abnormal ?? END OF CHART ? Page: ?? 3 us Historical Provider LAB BLOOD ORDERABLES Ruby murphy Result Performing Organization Address City/State/[facility] Co de Phone Number HISTORICAL RESULTS documented in this encounter Visit Diagnoses Diagnosis Abdominal pain Abdominal pain, unspecified site Symptom associated with female genital organs documented in this encounter Additional Health Concerns Infection Onset Date Last Indicated Resolved Time MRSA Comment:Backloaded September 16, 2011 05/28/2011 05/28/201106/28 5:00 AM CDT documented as of this encounter Care Teams Hand Cementer Relationship Specialty Start Date End Date Mayela Thomas MD [address] [place] [id number] PCP - General 06/01/11 09/05/15 documented as of this encounter
--- OUTSIDE RECORDS SUMMARY | 2024-11-30 00:29 | XMS_ITS | Encounter Summary ---
Author Organization [facility] Healthcare Address [address] [place] [address] Care Team Providers Care Environmental Field Office Manager Name Role Phone Mayela Thomas MD Primary Care Provider [phone] Encounter Details Date Type Department Care Team (Late st Contact Info) Description 01/07/2014 8:38 AM FEATHER CURLING MACHINE OPERATOR - 01/07/2014 11:59 PM FEATHER CURLING MACHINE OPERATOR Hospital Encounter [facility] Social History Tobacco Use Types Packs/Day Years Used Date Smoking Tobacco: Never Assessed Comments Unknown Sex and Gender Information Value Date Recorded Sex Assigned at Not on file Legal Sex Female 1:47 AM FEATHER CURLING MACHINE OPERATOR Gender Identity Not on file Sexual Orientation Not on file documented as of this encounter Plan of Treatment Not on file documented as of this encounter Visit Diagnoses Not on filedocumented in this encounter Additional Health Concerns Infection Onset Date Last Indicated Resolved Time MRSA Comment:Backloaded September 16, 2011 05/28/2011 05/28/201106/28 5:00 AM CDT documented as of this encounter Care Teams Environmental Field Office Manager Relationship Specialty Start Date End Date Mayela Thomas MD [address] [place] [address] PCP - General 06/01/11 09/05/15 documented as of this encounter
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
--- OUTSIDE RECORDS SUMMARY | 2024-11-30 00:30 | XMS_ITS | Encounter Summary ---
Author Organization [facility] Healthcare Address [address] [place] [address] Care Team Providers Care Teacher Learning Disabled Name Role Phone Unavailable Primary Care Provider Unavailabl e Encounter Details Date Type Department Care Team (Late st Contact Info) Description 02/21/2009 4:09 PM CDT - 02/21/2009 6:25 PM CDT Hospital Encounter [facility] Leroy Alexander MD [address] [place] [address] Soraida Lezama MD [address] [place], [place] [id number] Symptom associated with female genital organs Social History Tobacco Use Types Packs/Day Years Used Date Smoking Tobacco: Never Assessed Comments Unknown Sex and Gender Information Value Date Recorded Sex Assigned at Not on file 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
--- OUTSIDE RECORDS SUMMARY | 2024-11-30 00:30 | XMS_ITS | Encounter Summary ---
Author Organization [facility] Healthcare Address [address] [place] [address] Care Team Providers Care Director Hr Communications Name Role Phone Unavailable Primary Care Provider Unavailabl e Encounter Details Date Type Department Care Team (Late st Contact Info) Description 03/24/2008 11:20 PM CDT - 03/25/2008 2:45 AM CDT Hospital Encounter [facility] Holly Aragon MD [address] [place] [address] Social History Tobacco Use Types Packs/Day Years Used Date Smoking Tobacco: Never Assessed Comments Unknown Sex and Gender Information Value Date Recorded Sex Assigned at Not on file 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
--- OUTSIDE RECORDS SUMMARY | 2024-11-30 00:30 | XMS_ITS | Encounter Summary ---
Author Organization [facility] Healthcare Address [address] [place] [address] Care Team Providers Care Biofuels Plant Manager Name Role Phone Unavailable Primary Care Provider Unavailabl e Encounter Details Date Type Department Care Team (Late st Contact Info) Description 04/10/2010 1:18 AM CDT - 04/10/2010 1:50 AM CDT Hospital Encounter [facility] Roddy Crews MD [address] [place] [address] # [place] [address] Soraida Lezama MD [address] [place] [address] Painful respiration Social History Tobacco Use Types Packs/Day Years Used Date Smoking Tobacco: Never Assessed Comments Unknown Sex and Gender Information Value Date Recorded Sex Assigned at Not on file 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
--- OUTSIDE RECORDS SUMMARY | 2024-11-30 00:30 | XMS_ITS | Encounter Summary ---
Author Organization [facility] Healthcare Address [address] [place] [address] Care Team Providers Care Recruitment Manager Name Role Phone Unavailable Primary Care Provider Unavailabl e Encounter Details Date Type Department Care Team (Late st Contact Info) Description 11/26/2010 12:25 PM VENEER JOINTER - 11/26/2010 12:49 PM VENEER JOINTER Hospital Encounter [facility] Joby Lemos MD [address] [facility] [address] [place] [address] Jin Paniagua MD [address] [place] [address] Myalgia and myositis Social History Tobacco Use Types Packs/Day Years Used Date Smoking Tobacco: Never Assessed Comments Unknown Sex and Gender Information Value Date Recorded Sex Assigned at Not on file Legal Sex Female 1:47 AM VENEER JOINTER Gender Identity Not on file Sexual Orientation Not on file documented as of this encounter Plan of Treatment Not on file documented as of this encounter Visit Diagnoses Diagnosis Myalgia and myositis Unspecified myalgia and myositis documented in this encounter
--- OUTSIDE RECORDS SUMMARY | 2024-11-30 00:30 | XMS_ITS | Encounter Summary ---
Author Organization [facility] Healthcare Address [address] [place] [address] Care Team Providers Care Animal Doctor Name Role Phone Mayela Thomas MD Primary Care Provider [phone] Encounter Details Date Type Department Care Team (Late st Contact Info) Description 05/18/2011 4:58 PM CDT - 05/18/2011 7:20 PM CDT Hospital Encounter [facility] Joby Lemos MD [address] [facility] [address] [place] [address] Holly Sanches MD [address] [place] [phone] Backache; Accidental fall on or from other stairs or steps; External cause status; state, incidental Social History Tobacco Use Types Packs/Day Years Used Date Smoking Tobacco: Never Assessed Comments Unknown Sex and Gender Information Value Date Recorded Sex Assigned at Not on file 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
--- OUTSIDE RECORDS SUMMARY | 2024-11-30 00:30 | XMS_ITS | Encounter Summary ---
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
--- OUTSIDE RECORDS SUMMARY | 2024-11-30 00:30 | XMS_ITS | Encounter Summary ---
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
--- OUTSIDE RECORDS SUMMARY | 2024-11-30 00:30 | XMS_ITS | Encounter Summary ---
Author Organization [facility] Healthcare Address [address] [place] [address] Care Team Providers Care Production Team Advisor Name Role Phone Unavailable Primary Care Provider Unavailabl e Encounter Details Date Type Department Care Team (Late st Contact Info) Description 05/09/2007 6:46 AM CDT - 05/09/2007 7:45 AM CDT Hospital Encounter [facility] Manish Smart MD [address] [facility] [address] [address] Soraida Lezama MD [address] [place] [address] Social History Tobacco Use Types Packs/Day Years Used Date Smoking Tobacco: Never Assessed Comments Unknown Sex and Gender Information Value Date Recorded Sex Assigned at Not on file 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
--- OUTSIDE RECORDS SUMMARY | 2024-11-30 00:30 | XMS_ITS | Encounter Summary ---
Author Organization [facility] Healthcare Address [address] [place] [address] Care Team Providers Care Ground Transportation Operator Name Role Phone aMyela Thomas MD Primary Care Provider [phone] Encounter Details Date Type Department Care Team (Late st Contact Info) Description 09/05/2011 8:38 PM CDT - 09/05/2011 11:30 PM CDT Hospital Encounter [facility] Holly Aragon MD [address] [place] [phone] Other complication of , antepartum; Backache; Symptom associated with female genital organs Social History Tobacco Use Types Packs/Day Years Used Date Smoking Tobacco: Never Assessed Comments Unknown Sex and Gender Information Value Date Recorded Sex Assigned at Not on file 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 Gender Identity Not on file Sexual Orientation Not on file documented as of this encounter Plan of Treatment Not on file documented as of this encounter Visit Diagnoses Diagnosis Other complication of , antepartum Backache Unspecified backache Symptom associated with female genital organs documented in this encounter Additional Health Concerns Infection Onset Date Last Indicated Resolved Time MRSA Comment:Backloaded September 16, 2011 05/28/2011 05/28/201106/28 5:00 AM CDT documented as of this encounter Care Teams Ground Transportation Operator Relationship Specialty Start Date End Date Mayela Thomas MD [address] [place] [phone] PCP - General 06/01/11 09/05/15 documented as of this encounter
--- OUTSIDE RECORDS SUMMARY | 2024-11-30 00:30 | XMS_ITS | Encounter Summary ---
Author Organization [facility] Healthcare Address [address] [place] [address] Care Team Providers Care Registered Nurse Teacher Name Role Phone Mayela Thomas MD Primary Care Provider [phone] Encounter Details Date Type Department Care Team (Late st Contact Info) Description 10/14/2011 8:51 AM WHITE KID BUFFER - 10/16/2011 6:45 PM WHITE KID BUFFER Hospital Encounter [facility] Holly Aragon MD [address] [place] [phone] Normal delivery; Delivery outcome of single liveborn Social History Tobacco Use Types Packs/Day Years Used Date Smoking Tobacco: Never Assessed Comments Unknown Sex and Gender Information Value Date Recorded Sex Assigned at Not on file Legal Sex Female 1:47 AM WHITE KID BUFFER Gender Identity Not on file Sexual Orientation Not on file documented as of this encounter Plan of Treatment Not on file documented as of this encounter Visit Diagnoses Diagnosis Normal delivery Delivery outcome of single liveborn documented in this encounter Additional Health Concerns Infection Onset Date Last Indicated Resolved Time MRSA Comment:Backloaded September 16, 2011 05/28/2011 05/28/201106/28 5:00 AM CDT documented as of this encounter Care Teams Registered Nurse Teacher Relationship Specialty Start Date End Date Mayela Thomas MD [address] [place] [phone] PCP - General 06/01/11 09/05/15 documented as of this encounter
--- OUTSIDE RECORDS SUMMARY | 2024-11-30 00:30 | XMS_ITS | Encounter Summary ---
Author Organization [facility] Healthcare Address [address] [place] [address] Care Team Providers Care Actuarial Assistant Name Role Phone Unavailable Primary Care Provider Unavailabl e Encounter Details Date Type Department Care Team (Late st Contact Info) Description 03/08/2011 3:00 PM CDT - 03/08/2011 6:05 PM CDT Hospital Encounter [facility] Manish Smart MD [address] [facility] [address] [place] [phone] Other current maternal conditions classifiable elsewhere, antepartum; Abdominal pain Social History Tobacco Use Types Packs/Day Years Used Date Smoking Tobacco: Never Assessed Comments Unknown Sex and Gender Information Value Date Recorded Sex Assigned at Not on file 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
--- OUTSIDE RECORDS SUMMARY | 2024-11-30 00:30 | XMS_ITS | Encounter Summary ---
Author Organization [facility] Healthcare Address [address] [place] [address] Care Team Providers Care Senior Art Director Name Role Phone Unavailable Primary Care Provider Unavailabl e Encounter Details Date Type Department Care Team (Late st Contact Info) Description 04/12/2008 9:51 PM CDT - 04/12/2008 11:50 PM CDT Hospital Encounter [facility] Holly Aragon MD [address] [place] [phone] Social History Tobacco Use Types Packs/Day Years Used Date Smoking Tobacco: Never Assessed Comments Unknown Sex and Gender Information Value Date Recorded Sex Assigned at Not on file 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
--- OUTSIDE RECORDS SUMMARY | 2024-11-30 00:30 | XMS_ITS | Encounter Summary ---
Author Organization [facility] Healthcare Address [address] [place] [address] Care Team Providers Care Pharmacy Intake Coordinator Name Role Phone Unavailable Primary Care Provider Unavailabl e Encounter Details Date Type Department Care Team (Late st Contact Info) Description 06/13/2007 12:01 AM CDT - 06/13/2007 11:59 PM CDT Hospital Encounter [facility] Ivone Baltazar Social History Tobacco Use Types Packs/Day Years Used Date Smoking Tobacco: Never Assessed Comments Unknown Sex and Gender Information Value Date Recorded Sex Assigned at Not on file 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
--- OUTSIDE RECORDS SUMMARY | 2024-11-30 00:30 | XMS_ITS | Encounter Summary ---
Author Organization [facility] Healthcare Address [address] [place] [address] Care Team Providers Care Bike Shop Manager Name Role Phone Mayela Thomas MD Primary Care Provider [phone] Encounter Details Date Type Department Care Team (Late st Contact Info) Description 06/14/2011 6:09 PM CDT - 06/14/2011 9:20 PM CDT Hospital Encounter [facility] Holly Aragon MD [address] [place] [phone] Threatened premature labor, antepartum(644.03); Anemia Social History Tobacco Use Types Packs/Day Years Used Date Smoking Tobacco: Never Assessed Comments Unknown Sex and Gender Information Value Date Recorded Sex Assigned at Not on file 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 Female 1: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 Gender Identity Not on file Sexual Orientation Not on file documented as of this encounter Plan of Treatment Not on file documented as of this encounter Visit Diagnoses Diagnosis Threatened premature labor, antepartum(644.03) Threatened premature labor, antepartum Anemia Unspecified anemia documented in this encounter Additional Health Concerns Infection Onset Date Last Indicated Resolved Time MRSA Comment:Backloaded September 16, 2011 05/28/2011 05/28/201106/28 5:00 AM CDT documented as of this encounter Care Teams Bike Shop Manager Relationship Specialty Start Date End Date Mayela Thomas MD [address] [place], [place] [phone] PCP - General 06/01/11 09/05/15 documented as of this encounter
--- OUTSIDE RECORDS SUMMARY | 2024-11-30 00:30 | XMS_ITS | Encounter Summary ---
Author Organization [facility] Healthcare Address [address] [place] [address] Care Team Providers Care Internal Medicine Physician Assistant Name Role Phone Unavailable Primary Care Provider Unavailabl e Encounter Details Date Type Department Care Team (Late st Contact Info) Description 03/22/2011 10:17 AM CDT - 03/22/2011 11:36 AM CDT Hospital Encounter [facility] Víctor Cote MD [address] [facility] [place] [place] [address] Holly Sanches MD [address] [place] [address] Constipation Social History Tobacco Use Types Packs/Day Years Used Date Smoking Tobacco: Never Assessed Comments Unknown Sex and Gender Information Value Date Recorded Sex Assigned at Not on file Legal Sex Female 1:47 AM SEMICONDUCTOR BONDER Gender Identity Not on file Sexual Orientation Not on file documented as of this encounter Plan of Treatment Not on file documented as of this encounter Visit Diagnoses Diagnosis Constipation Unspecified constipation documented in this encounter
--- OUTSIDE RECORDS SUMMARY | 2024-11-30 00:30 | XMS_ITS | Encounter Summary ---
Author Organization [facility] Healthcare Address [address] [place] [address] Care Team Providers Care Dry Kiln Loader Name Role Phone Mayela Thomas MD Primary Care Provider [phone] Encounter Details Date Type Department Care Team (Late st Contact Info) Description 05/07/2011 5:05 PM CDT - 05/27/2011 11:59 PM CDT Hospital Encounter [facility] Holly Aragon MD [address] [place] [phone] Procedure not carried out for other reasons Social History Tobacco Use Types Packs/Day Years Used Date Smoking Tobacco: Never Assessed Comments Unknown Sex and Gender Information Value Date Recorded Sex Assigned at Not on file Legal Sex Female 1:47 AM OFFICE SUPPORT ASSOCIATE Gender Identity Not on file Sexual Orientation Not on file documented as of this encounter Plan of Treatment Not on file documented as of this encounter Visit Diagnoses Diagnosis Procedure not carried out for other reasons documented in this encounter Care Teams Dry Kiln Loader Relationship Specialty Start Date End Date Mayela Thomas MD [address] [place] [address] PCP - General 05/04/11 05/31/11 documented as of this encounter
--- OUTSIDE RECORDS SUMMARY | 2024-11-30 00:30 | XMS_ITS | Encounter Summary ---
Author Organization [facility] Healthcare Address [address] [place] [address] Care Team Providers Care Bridge Inspector Name Role Phone Mayela Thomas MD Primary Care Provider [phone] Encounter Details Date Type Department Care Team (Late st Contact Info) Description 07/08/2012 8:16 PM CDT - 07/08/2012 10:07 PM CDT Hospital Encounter [facility] Hailee Burris MD [address] [place] [address] Dental caries Social History Tobacco Use Types Packs/Day Years Used Date Smoking Tobacco: Never Assessed Comments Unknown Sex and Gender Information Value Date Recorded Sex Assigned at Not on file Legal Sex Female 1:47 AM 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 PLANT SUPERVISOR Gender Identity Not on file Sexual Orientation Not on file documented as of this encounter Plan of Treatment Not on file documented as of this encounter Visit Diagnoses Diagnosis Dental caries Unspecified dental caries documented in this encounter Additional Health Concerns Infection Onset Date Last Indicated Resolved Time MRSA Comment:Backloaded September 16, 2011 05/28/2011 05/28/201106/28 5:00 AM CDT documented as of this encounter Care Teams Bridge Inspector Relationship Specialty Start Date End Date Mayela Thomas MD [address] [place] [address] PCP - General 06/01/11 09/05/15 documented as of this encounter
--- OUTSIDE RECORDS SUMMARY | 2024-11-30 00:30 | XMS_ITS | Encounter Summary ---
Author Organization [facility] Healthcare Address [address] [place] [address] Care Team Providers Care Human Resources Associate Name Role Phone Unavailable Primary Care Provider Unavailabl e Encounter Details Date Type Department Care Team (Late st Contact Info) Description 04/23/2008 4:54 AM CDT - 04/25/2008 10:30 AM CDT Hospital Encounter [facility] Holly Aragon MD [address] [place] [phone] Social History Tobacco Use Types Packs/Day Years Used Date Smoking Tobacco: Never Assessed Comments Unknown Sex and Gender Information Value Date Recorded Sex Assigned at Not on file Legal Sex Female 1:47 AM INTERNAL AUDIT DIRECTOR Gender Identity Not on file Sexual Orientation Not on file documented as of this encounter Plan of Treatment Not on file documented as of this encounter Visit Diagnoses Not on filedocumented in this encounter
--- OUTSIDE RECORDS SUMMARY | 2024-11-30 00:30 | XMS_ITS | Encounter Summary ---
Author Organization [facility] Healthcare Address [address] [place] [address] Care Team Providers Care Device Sales Consultant Name Role Phone Unavailable Primary Care Provider Unavailabl e Encounter Details Date Type Department Care Team (Late st Contact Info) Description 03/24/2007 11:01 AM CDT - 03/24/2007 1:25 PM CDT Hospital Encounter [facility] Freeman Martin Social History Tobacco Use Types Packs/Day Years Used Date Smoking Tobacco: Never Assessed Comments Unknown Sex and Gender Information Value Date Recorded Sex Assigned at Not on file Legal Sex Female 1:47 AM PRIVATE SECURITY GUARD Gender Identity Not on file Sexual Orientation Not on file documented as of this encounter Plan of Treatment Not on file documented as of this encounter Visit Diagnoses Not on filedocumented in this encounter
--- OUTSIDE RECORDS SUMMARY | 2024-11-30 00:30 | XMS_ITS | Encounter Summary ---
Author Organization [facility] Healthcare Address [address] [place] [address] Care Team Providers Care Milieu Coordinator Name Role Phone Unavailable Primary Care Provider Unavailabl e Encounter Details Date Type Department Care Team (Late st Contact Info) Description 01/03/2009 2:15 PM RACE AND SPORTS BOOK WRITER - 01/03/2009 2:50 PM RACE AND SPORTS BOOK WRITER Hospital Encounter [facility] Joby Lemos MD [address] [facility] [address] [place] [address] Soraida Lezama MD [address] [place] [address] Otalgia Social History Tobacco Use Types Packs/Day Years Used Date Smoking Tobacco: Never Assessed Comments Unknown Sex and Gender Information Value Date Recorded Sex Assigned at Not on file Legal Sex Female 1:47 AM RACE AND SPORTS BOOK WRITER Gender Identity Not on file Sexual Orientation Not on file documented as of this encounter Plan of Treatment Not on file documented as of this encounter Visit Diagnoses Diagnosis Otalgia Unspecified otalgia documented in this encounter
--- OUTSIDE RECORDS SUMMARY | 2024-11-30 00:30 | XMS_ITS | Encounter Summary ---
Author Organization [facility] Healthcare Address [address] [place] [address] Care Team Providers Care Tray Checker Name Role Phone Unavailable Primary Care Provider Unavailabl e Encounter Details Date Type Department Care Team (Late st Contact Info) Description 06/05/2010 9:54 PM CDT - 06/05/2010 11:59 PM CDT Hospital Encounter [facility] CLINCONV Screening examination for sexually transmitted disease Social History Tobacco Use Types Packs/Day Years Used Date Smoking Tobacco: Never Assessed Comments Unknown Sex and Gender Information Value Date Recorded Sex Assigned at Not on file Legal Sex Female 1:47 AM MANAGER ENGLISH Gender Identity Not on file Sexual Orientation Not on file documented as of this encounter Plan of Treatment Not on file documented as of this encounter Visit Diagnoses Diagnosis Screening examination for sexually transmitted disease documented in this encounter
--- OUTSIDE RECORDS SUMMARY | 2024-11-30 00:30 | XMS_ITS | Encounter Summary ---
Author Organization [facility] Healthcare Address [address] [place] [address] Care Team Providers Care General Engineer Name Role Phone Unavailable Primary Care Provider Unavailabl e Encounter Details Date Type Department Care Team (Late st Contact Info) Description 09/01/2009 5:44 PM CDT - 09/01/2009 11:59 PM CDT Hospital Encounter [facility]INCON[facility] Screening examination for sexually transmitted disease; Screening for malignant neoplasm of cervix Social History Tobacco Use Types Packs/Day Years Used Date Smoking Tobacco: Never Assessed Comments Unknown Sex and Gender Information Value Date Recorded Sex Assigned at Not on file Legal Sex Female 1:47 AM CARD BRUSHER Gender Identity Not on file Sexual Orientation Not on file documented as of this encounter Plan of Treatment Not on file documented as of this encounter Visit Diagnoses Diagnosis Screening examination for sexually transmitted disease Screening for malignant neoplasm of cervix Screening for malignant neoplasm of the cervix documented in this encounter
--- OUTSIDE RECORDS SUMMARY | 2024-11-30 00:30 | XMS_ITS | Encounter Summary ---
Author Organization [facility] Healthcare Address [address] [place] [address] Care Team Providers Care Tree Doctor Name Role Phone Unavailable Primary Care Provider Unavailabl e Encounter Details Date Type Department Care Team (Late st Contact Info) Description 06/10/2007 12:35 AM CDT - 06/10/2007 1:01 AM CDT Hospital Encounter [facility] Roddy Crews MD [address] [place] [address] # [place] [address] Soraida Lezama MD [address] [place] [address] Social History Tobacco Use Types Packs/Day Years Used Date Smoking Tobacco: Never Assessed Comments Unknown Sex and Gender Information Value Date Recorded Sex Assigned at Not on file Legal Sex Female 1:47 AM AIRCRAFT PART ASSEMBLER Gender Identity Not on file Sexual Orientation Not on file documented as of this encounter Plan of Treatment Not on file documented as of this encounter Visit Diagnoses Not on filedocumented in this encounter
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
--- OUTSIDE RECORDS SUMMARY | 2024-11-30 00:30 | XMS_ITS | Encounter Summary ---
Author Organization [facility] Healthcare Address [address] [place] [address] Care Team Providers Care Main Line Station Engineer Name Role Phone Unavailable Primary Care Provider Unavailabl e Encounter Details Date Type Department Care Team (Late st Contact Info) Description 10/16/2008 8:30 PM ORIGINATION SPECIALIST - 10/16/2008 11:59 PM ORIGINATION SPECIALIST Hospital Encounter [facility] CLINCONV Social History Tobacco Use Types Packs/Day Years Used Date Smoking Tobacco: Never Assessed Comments Unknown Sex and Gender Information Value Date Recorded Sex Assigned at Not on file Legal Sex Female 1:47 AM ORIGINATION SPECIALIST Gender Identity Not on file Sexual Orientation Not on file documented as of this encounter Plan of Treatment Not on file documented as of this encounter Visit Diagnoses Not on filedocumented in this encounter
--- OUTSIDE RECORDS SUMMARY | 2024-11-30 00:30 | XMS_ITS | Encounter Summary ---
Author Organization [facility] Healthcare Address [address] [place] [address] Care Team Providers Care Software Client Architect Name Role Phone Mayela Thomas MD Primary Care Provider Encounter Details Date Type Department Care Team (Late st Contact Info) Description 03/26/2012 10:08 AM CDT - 03/26/2012 12:32 PM CDT Hospital Encounter [facility] Hailee Brasher MD [address] [facility] [place] [address] Pain in soft tissues of limb Social History Tobacco Use Types Packs/Day Years Used Date Smoking Tobacco: Never Assessed Comments Unknown Sex and Gender Information Value Date Recorded Sex Assigned at Not on file Legal Sex Female 1:47 AM MANAGER CONTRACTING Gender Identity Not on file Sexual Orientation Not on file documented as of this encounter Plan of Treatment Not on file documented as of this encounter Visit Diagnoses Diagnosis Pain in soft tissues of limb documented in this encounter Additional Health Concerns Infection Onset Date Last Indicated Resolved Time MRSA Comment:Backloaded September 16, 2011 05/28/2011 05/28/201106/28 5:00 AM CDT documented as of this encounter Care Teams Software Client Architect Relationship Specialty Start Date End Date Mayela Thomas MD [address] [place] [phone] PCP - General 06/01/11 09/05/15 documented as of this encounter
--- OUTSIDE RECORDS SUMMARY | 2024-11-30 00:30 | XMS_ITS | Encounter Summary ---
Author Organization [facility] Healthcare Address [address] [place] [address] Care Team Providers Care Reproductive Surgeon Name Role Phone Unavailable Primary Care Provider Unavailabl e Encounter Details Date Type Department Care Team (Late st Contact Info) Description 03/18/2009 12:32 PM CDT - 03/18/2009 3:45 PM CDT Hospital Encounter [facility] Manish Smart MD 1 [facility] [address] [address] Soraida Lezama MD [address] [place] [address] Mild hyperemesis gravidarum, antepartum Social History Tobacco Use Types Packs/Day Years Used Date Smoking Tobacco: Never Assessed Comments Unknown Sex and Gender Information Value Date Recorded Sex Assigned at Not on file Legal Sex Female 1:47 AM COMPANY DRIVER Gender Identity Not on file Sexual Orientation Not on file documented as of this encounter Plan of Treatment Not on file documented as of this encounter Visit Diagnoses Diagnosis Mild hyperemesis gravidarum, antepartum documented in this encounter
--- OUTSIDE RECORDS SUMMARY | 2024-11-30 00:30 | XMS_ITS | Encounter Summary ---
Author Organization [facility] Healthcare Address [address] [place] [address] Care Team Providers Care Metal Tank Erector Name Role Phone Unavailable Primary Care Provider Unavailabl e Encounter Details Date Type Department Care Team (Late st Contact Info) Description 02/21/2009 4:58 PM CDT - 02/21/2009 11:59 PM CDT Hospital Encounter [facility] CLINCONV Social History Tobacco Use Types Packs/Day Years Used Date Smoking Tobacco: Never Assessed Comments Unknown Sex and Gender Information Value Date Recorded Sex Assigned at Not on file Legal Sex Female 1:47 AM LEARNING SUPPORT AIDE Gender Identity Not on file Sexual Orientation Not on file documented as of this encounter Plan of Treatment Not on file documented as of this encounter Visit Diagnoses Not on filedocumented in this encounter
--- OUTSIDE RECORDS SUMMARY | 2024-11-30 00:30 | XMS_ITS | Encounter Summary ---
Author Organization [facility] Healthcare Address [address] [place] [address] Care Team Providers Care Stack Attendant Name Role Phone Unavailable Primary Care Provider Unavailabl e Encounter Details Date Type Department Care Team (Late st Contact Info) Description 06/05/2007 12:01 AM CDT - 06/05/2007 11:59 PM CDT Hospital Encounter [facility] Ivone Baltazar Social History Tobacco Use Types Packs/Day Years Used Date Smoking Tobacco: Never Assessed Comments Unknown Sex and Gender Information Value Date Recorded Sex Assigned at Not on file Legal Sex Female 1:47 AM NUMERICAL CONTROL MACHINE MACHINIST Gender Identity Not on file Sexual Orientation Not on file documented as of this encounter Plan of Treatment Not on file documented as of this encounter Visit Diagnoses Not on filedocumented in this encounter
--- OUTSIDE RECORDS SUMMARY | 2024-11-30 00:30 | XMS_ITS | Encounter Summary ---
Author Organization [facility] Healthcare Address [address] [place] [address] Care Team Providers Care Manager Agricultural Name Role Phone Unavailable Primary Care Provider Unavailabl e Encounter Details Date Type Department Care Team (Late st Contact Info) Description 01/24/2009 8:06 AM EXTENSION WORKER - 01/24/2009 11:55 AM EXTENSION WORKER Hospital Encounter [facility] Demarcus Arnold MD [address] [place] [address] Benign neoplasm of breast Social History Tobacco Use Types Packs/Day Years Used Date Smoking Tobacco: Never Assessed Comments Unknown Sex and Gender Information Value Date Recorded Sex Assigned at Not on file Legal Sex Female 1:47 AM EXTENSION WORKER Gender Identity Not on file Sexual Orientation Not on file documented as of this encounter Plan of Treatment Not on file documented as of this encounter Visit Diagnoses Diagnosis Benign neoplasm of breast documented in this encounter
--- OUTSIDE RECORDS SUMMARY | 2024-11-30 00:30 | XMS_ITS | Encounter Summary ---
Author Organization [facility] Healthcare Address [address] [place] [address] Care Team Providers Care Tin Flipper Name Role Phone Unavailable Primary Care Provider Unavailabl e Encounter Details Date Type Department Care Team (Late st Contact Info) Description 04/12/2008 10:16 AM CDT - 04/12/2008 11:59 PM CDT Hospital Encounter [facility] CLINCONV Social History Tobacco Use Types Packs/Day Years Used Date Smoking Tobacco: Never Assessed Comments Unknown Sex and Gender Information Value Date Recorded Sex Assigned at Not on file Legal Sex Female 1:47 AM HISTOTECHNOLOGIST SUPERVISOR Gender Identity Not on file Sexual Orientation Not on file documented as of this encounter Plan of Treatment Not on file documented as of this encounter Visit Diagnoses Not on filedocumented in this encounter
--- OUTSIDE RECORDS SUMMARY | 2024-11-30 00:30 | XMS_ITS | Encounter Summary ---
Author Organization [facility] Healthcare Address [address] [place] [address] Care Team Providers Care International Student Counselor Name Role Phone Mayela Thomas MD Primary Care Provider [phone] Encounter Details Date Type Department Care Team (Late st Contact Info) Description 05/28/2011 12:01 AM CDT - 05/28/2011 9:30 AM CDT Hospital Encounter [facility] Holly Aragon MD [address] [place] [phone] Procedure not carried out for other reasons Social History Tobacco Use Types Packs/Day Years Used Date Smoking Tobacco: Never Assessed Comments Unknown Sex and Gender Information Value Date Recorded Sex Assigned at Not on file Legal Sex Female 1:47 AM HAND STAPLER Gender Identity Not on file Sexual Orientation Not on file documented as of this encounter Plan of Treatment Not on file documented as of this encounter Visit Diagnoses Diagnosis Procedure not carried out for other reasons documented in this encounter Additional Health Concerns Infection Onset Date Last Indicated Resolved Time MRSA Comment:Backloaded September 16, 2011 05/28/2011 05/28/201106/28 5:00 AM CDT documented as of this encounter Care Teams International Student Counselor Relationship Specialty Start Date End Date Mayela Thomas MD [address] [place] [phone] PCP - General 05/04/11 05/31/11 documented as of this encounter
--- OUTSIDE RECORDS SUMMARY | 2024-11-30 00:30 | XMS_ITS | Encounter Summary ---
Author Organization [facility] Healthcare Address [address] [place] [address] Care Team Providers Care Business Coordinator Name Role Phone Unavailable Primary Care Provider Unavailabl e Encounter Details Date Type Department Care Team (Late st Contact Info) Description 05/22/2007 2:48 PM CDT - 05/22/2007 11:59 PM CDT Hospital Encounter [facility]INCON[facility] Social History Tobacco Use Types Packs/Day Years Used Date Smoking Tobacco: Never Assessed Comments Unknown Sex and Gender Information Value Date Recorded Sex Assigned at Not on file Legal Sex Female 1:47 AM 

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
--- OUTSIDE RECORDS SUMMARY | 2024-11-30 00:30 | XMS_ITS | Encounter Summary ---
Author Organization [facility] Healthcare Address [address] [place] [address] Care Team Providers Care Service Observer Chief Name Role Phone Unavailable Primary Care Provider Unavailabl e Encounter Details Date Type Department Care Team (Late st Contact Info) Description 07/31/2008 10:01 PM CDT - 07/31/2008 11:20 PM CDT Hospital Encounter [facility] Joby Lemos MD [address] [facility] [address] [place] [address] Soraida Lezama MD [address] [place] [address] Social History Tobacco Use Types Packs/Day Years Used Date Smoking Tobacco: Never Assessed Comments Unknown Sex and Gender Information Value Date Recorded Sex Assigned at Not on file Legal Sex Female 1:47 AM PETAL CUTTER Gender Identity Not on file Sexual Orientation Not on file documented as of this encounter Plan of Treatment Not on file documented as of this encounter Visit Diagnoses Not on filedocumented in this encounter
--- OUTSIDE RECORDS SUMMARY | 2024-11-30 00:30 | XMS_ITS | Encounter Summary ---
Author Organization [facility] Healthcare Address [address] [place] [address] Care Team Providers Care Record Press Operator Name Role Phone Unavailable Primary Care Provider Unavailabl e Encounter Details Date Type Department Care Team (Late st Contact Info) Description 03/03/2008 6:39 PM CDT - 03/03/2008 7:49 PM CDT Hospital Encounter [facility] V[facility]ctor Cote MD [address] [place] [id number] Social History Tobacco Use Types Packs/Day Years Used Date Smoking Tobacco: Never Assessed Comments Unknown Sex and Gender Information Value Date Recorded Sex Assigned at Not on file Legal Sex Female 1:47 AM ACTING INSTRUCTOR Gender Identity Not on file Sexual Orientation Not on file documented as of this encounter Plan of Treatment Not on file documented as of this encounter Visit Diagnoses Not on filedocumented in this encounter
== END 2024-11-23 00:53 | disposition home or self-care (01) ==
LOC: ANHED 11-23 00:01
PROVIDERS: Emergency Medicine; Emergency Provider Emergency Medicine
DX: R07.89 Other chest pain (principal); I10 Essential (primary) hypertension
CPT/HCPCS: 36415; 71046; 80053; 83690; 84484; 85025; 85610; 85730; 93005; 96374; 99284; A9270; J2060